=== PATIENT | female | born 2000 | race Caucasian/White ===

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

== ENCOUNTER 2022-10-17 23:14 | Emergency (ER) | payer OTHER ==
--- OUTSIDE RECORDS SUMMARY | 2022-10-17 23:39 | XMS REPORT | Continuity of Care Document ---
:2000 Author Organization [facility] t Address [address] [place] [address] Care Team Providers Name Role Phone Norma Pugh Primary Care Physician [phone] MARY GRACE Attending Clinician Unavailable Mickey_Vianney Attending Clinician Unavailable MARY GRACE Admitting Clinician Unavailable Mickey_Vianney Admitting Clinician Unavailable Problems This patient has no known problems. Allergies, Adverse Reactions, Alerts This patient has no known allergies or adverse reactions. Medications Ordered Filled Start Stop Current Ordering Indication Dosage Frequency Signature Comments Components Source Medication Medication Date Date Medication? Clinician (SIG) Name Name CEPHALEXIN 2021-0 No 500 CAP 500MG 8 00:00: 00 CEPHALEXIN 2021-0 No CAP 500MG 8 00:00: 00 &lt 2022-0 No 500 8- 00:00: 00 Dose 2-0 No Unknown 8- 00:00: 00 &lt 2022-0 No 500 8- 00:00: 00 Dose 2022-0 No Unknown 8 00:00: 00 &lt 2022-0 No 500 8- 00:00: 00 Dose 2-0 No Unknown 8 00:00: 00 &lt 2022-0 No 7 00:00: 00 &lt 2022-0 No 7 00:00: 00 &lt 2022-0 No 7 00:00: 00 &lt 2022-0 No 500 7 00:00: 00 &lt 2022-0 No 500 7 00:00: 00 &lt 2022-0 No 500 7 00:00: 00 Dose 2022-0 No Unknown 12-08 00:00: 00 Dose 2022-0 No Unknown 12-08 00:00: 00 Dose 2022-0 No Unknown 7- 00:00: 00 fluconazole 2022-0 No 1mg 150 mg 6-28 tablet 00:00: 00 &lt 2022-0 No 6-28 00:00: 00 &lt 2022-0 No 6-28 00:00: 00 &lt 2022-0 No 6-28 00:00: 00 fluconazole 2022-0 No 1mg 150 mg 6-28 tablet 00:00: 00 &lt 2022-0 No 6-28 00:00: 00 &lt 2022-0 No 6-28 00:00: 00 &lt 2022-0 No 6-28 00:00: 00 fluconazole 2022-0 No 1mg 150 mg 6-28 tablet 00:00: 00 &lt 2022-0 No 6-28 00:00: 00 &lt 2022-0 No 6-28 00:00: 00 &lt 2022-0 No 6-28 00:00: 00 &lt 2022-0 No 6-22 00:00: 00 &lt 2022-0 No 6-22 00:00: 00 &lt 2022-0 No 6-22 00:00: 00 Dovonex 2022-0 No 1% 0.005 % 6-20 topical 00:00: cream 00 metronidazo 2022-0 No 1mg le 500 mg 6-20 tablet 00:00: 00 ibuprofen 2022-0 No 1mg 400 mg 6-20 tablet 00:00: 00 &lt 2022-0 No 6-20 00:00: 00 &lt 2022-0 No 6-20 00:00: 00 &lt 2022-0 No 6-20 00:00: 00 Dovonex 2022-0 No 1% 0.005 % 6-20 topical 00:00: cream 00 metronidazo 2022-0 No 1mg le 500 mg 6-20 tablet 00:00: 00 ibuprofen 2022-0 No 1mg 400 mg 6-20 tablet 00:00: 00 &lt 2022-0 No 6-20 00:00: 00 &lt 2022-0 No 6-20 00:00: 00 &lt 2022-0 No 6-20 00:00: 00 Dovonex 2022-0 No 1% 0.005 % 6-20 topical 00:00: cream 00 metronidazo 2022-0 No 1mg le 500 mg 6-20 tablet 00:00: 00 ibuprofen 2022-0 No 1mg 400 mg 6-20 tablet 00:00: 00 &lt 2022-0 No 6-20 00:00: 00 &lt 2022-0 No 6-20 00:00: 00 &lt 2022-0 No 6-20 00:00: 00 &lt 2022-0 No 6-13 00:00: 00 &lt 2022-0 No 6-13 00:00: 00 &lt 2022-0 No 6-13 00:00: 00 mupirocin 2 2-0 No 1% % topical 4-26 ointment 00:00: 00 Dose 2022-0 No Unknown 4-26 00:00: 00 Dose 2022-0 No Unknown 4-26 00:00: 00 Dose 2022-0 No Unknown 4-26 00:00: 00 Dose 2022-0 No Unknown 4-26 00:00: 00 mupirocin 2 2-0 No 1% % topical 4-26 ointment 00:00: 00 Dose 2022-0 No Unknown 4-26 00:00: 00 Dose 2022-0 No Unknown 4-26 00:00: 00 Dose 2022-0 No Unknown 4-26 00:00: 00 Dose 2022-0 No Unknown 4-26 00:00: 00 mupirocin 2 2022-0 No 1% % topical 4-26 ointment 00:00: 00 Dose 2022-0 No Unknown 4-26 00:00: 00 Dose 2022-0 No Unknown 4-26 00:00: 00 Dose 2022-0 No Unknown 4-26 00:00: 00 Dose 2022-0 No Unknown 4-26 00:00: 00 Dose 2022-0 No Unknown 4-15 00:00: 00 Dose 2022-0 No Unknown 4-15 00:00: 00 Dose 2022-0 No Unknown 4-15 00:00: 00 mupirocin 2 2-0 No 1% % topical 4-06 ointment 00:00: 00 sulfamethox 2-0 No 1mg azole 800 4-06 mg-trimetho 00:00: prim 160 mg 00 tablet Dose 2-0 No Unknown 4-06 00:00: 00 Dose 2022-0 No Unknown 4-06 00:00: 00 mupirocin 2 2022-0 No 1% % topical 4-06 ointment 00:00: 00 sulfamethox 2022-0 No 1mg azole 800 4-06 mg-trimetho 00:00: prim 160 mg 00 tablet Dose 2022-0 No Unknown 4-06 00:00: 00 Dose 2022-0 No Unknown 4-06 00:00: 00 mupirocin 2 2022-0 No 1% % topical 4-06 ointment 00:00: 00 sulfamethox 2022-0 No 1mg azole 800 4-06 mg-trimetho 00:00: prim 160 mg 00 tablet Dose 2022-0 No Unknown 4-06 00:00: 00 Dose 2022-0 No Unknown 4-06 00:00: 00 metronidazo 2022-0 No 1mg le 500 mg 4-03 tablet 00:00: 00 metronidazo 2022-0 No 1mg le 500 mg 4-03 tablet 00:00: 00 metronidazo 2022-0 No 1mg le 500 mg 4-03 tablet 00:00: 00 doxycycline 2022-0 No 1mg hyclate 100 3-29 mg tablet 00:00: 00 doxycycline 2022-0 No 1mg hyclate 100 3-29 mg tablet 00:00: 00 doxycycline 2022-0 No 1mg hyclate 100 3-29 mg tablet 00:00: 00 Dose 2021-1 No Unknown 2-22 00:00: 00 Dose 1-1 No Unknown 2-22 00:00: 00 Dose 1-1 No Unknown 2-22 00:00: 00 doxycycline 2021-1 No 1mg hyclate 100 2-21 mg tablet 00:00: 00 doxycycline 2021-1 No 1mg hyclate 100 2-21 mg tablet 00:00: 00 doxycycline 2021-1 No 1mg hyclate 100 2-21 mg tablet 00:00: 00 Dose 1-1 No Unknown 0-07 00:00: 00 Dose 1-1 No Unknown 0-07 00:00: 00 Dose 2021-1 No Unknown 0-07 00:00: 00 azithromyci 2021-0 No 2mg n 500 mg 8-26 tablet 00:00: 00 azithromyci 2021-0 No 2mg n 500 mg 8-26 tablet 00:00: 00 azithromyci 2021-0 No 2mg n 500 mg 8-26 tablet 00:00: 00 Dose 2021-0 No Unknown 6-07 00:00: 00 Dose 2021-0 No Unknown 6-07 00:00: 00 Dose 2021-0 No Unknown 6-07 00:00: 00 Vitamin D3 1-0 No 1(1,000 25 mcg 6-05 unit) (1,000 00:00: unit) 00 capsule Vitamin D3 1-0 No 1(1,000 25 mcg 6-05 unit) (1,000 00:00: unit) 00 capsule Vitamin D3 1-0 No 1(1,000 25 mcg 6-05 unit) (1,000 00:00: unit) 00 capsule azithromyci 1-0 No 2mg n 500 mg 5-26 tablet 00:00: 00 azithromyci 1-0 No 2mg n 500 mg 5-26 tablet 00:00: 00 azithromyci 1-0 No 2mg n 500 mg 5-26 tablet 00:00: 00 Dose 2021-0 No Unknown 4-15 00:00: 00 Dose 2021-0 No Unknown 4-15 00:00: 00 Dose 2021-0 No Unknown 4-15 00:00: 00 Flagyl 500 1-0 No 1mg mg tablet 2-11 00:00: 00 Diflucan 2021-0 No 1mg 150 mg 2-11 tablet 00:00: 00 Flagyl 500 1-0 No 1mg mg tablet 2-11 00:00: 00 Diflucan 2021-0 No 1mg 150 mg 2-11 tablet 00:00: 00 Flagyl 500 2021-0 No 1mg mg tablet 2-11 00:00: 00 Diflucan 2021-0 No 1mg 150 mg 2-11 tablet 00:00: 00 metronidazo 2020-1 No 1mg le 500 mg 2-11 tablet 00:00: 00 metronidazo 2020-1 No 1mg le 500 mg 2-11 tablet 00:00: 00 metronidazo 2020-1 No 1mg le 500 mg 2-11 tablet 00:00: 00 clindamycin 2020-0 No 1% 1 % topical 02-05 gel 00:00: 00 clindamycin 2020-0 No 1% 1 % topical 9-23 gel 00:00: 00 clindamycin 2020-0 No 1% 1 % topical 9-23 gel 00:00: 00 clindamycin 2020-0 No 1% 1 % lotion 9-19 00:00: 00 clindamycin 2020-0 No 1% 1 % lotion 919 00:00: 00 clindamycin 2020-0 No 1% 1 % lotion 9-19 00:00: 00 mupirocin 2 2020-0 No 1% % topical 6-24 ointment 00:00: 00 prednisone 2020-0 No 1mg 20 mg 6-24 tablet 00:00: 00 doxycycline 2020-0 No 1mg monohydrate 6-24 100 mg 00:00: capsule 00 mupirocin 2 2020-0 No 1% % topical 6-24 ointment 00:00: 00 prednisone 2020-0 No 1mg 20 mg 6-24 tablet 00:00: 00 doxycycline 2020-0 No 1mg monohydrate 6-24 100 mg 00:00: capsule 00 mupirocin 2 2020-0 No 1% % topical 6-24 ointment 00:00: 00 prednisone 2020-0 No 1mg 20 mg 6-24 tablet 00:00: 00 doxycycline 2020-0 No 1mg monohydrate 6-24 100 mg 00:00: capsule 00 Dose 2020-0 No Unknown 6-18 00:00: 00 Dose 2020-0 No Unknown 6-18 00:00: 00 Dose 2020-0 No Unknown 6-18 00:00: 00 Xulane 150 2020-0 No 1mcg/24 mcg-35 1-06 hr mcg/24 hr 00:00: transdermal 00 patch Xulane 150 2020-0 No 1mcg/24 mcg-35 1-06 hr mcg/24 hr 00:00: transdermal 00 patch Xulane 150 2020-0 No 1mcg/24 mcg-35 1-06 hr mcg/24 hr 00:00: transdermal 00 patch Xulane 150 2019-1 No 1mcg/24 mcg-35 1-07 hr mcg/24 hr 00:00: transdermal 00 patch citalopram 2019-1 No 1mg 10 mg 1-07 tablet 00:00: 00 Xulane 150 2019-1 No 1mcg/24 mcg-35 1-07 hr mcg/24 hr 00:00: transdermal 00 patch citalopram 2019-1 No 1mg 10 mg 1-07 tablet 00:00: 00 Xulane 150 2019-1 No 1mcg/24 mcg-35 1-07 hr mcg/24 hr 00:00: transdermal 00 patch citalopram 2019-1 No 1mg 10 mg 1-07 tablet 00:00: 00 Diflucan 2019-0 No 1mg 150 mg 4-10 tablet 00:00: 00 Diflucan 2019-0 No 1mg 150 mg 4-10 tablet 00:00: 00 Diflucan 2019-0 No 1mg 150 mg 4-10 tablet 00:00: 00 amoxicillin 2019-0 No 1mg 875 mg 2-23 tablet 00:00: 00 amoxicillin 2019-0 No 1mg 875 mg 2-23 tablet 00:00: 00 amoxicillin 2019-0 No 1mg 875 mg 2-23 tablet 00:00: 00 permethrin 2017-0 No 1% 5 % topical 9-06 cream 00:00: 00 permethrin 2017-0 No 1% 5 % topical 9-06 cream 00:00: 00 permethrin 2017-0 No 1% 5 % topical 9-06 cream 00:00: 00 permethrin 2017-0 No 1% 5 % topical 5-17 cream 00:00: 00 permethrin 2017-0 No 1% 5 % topical 5-17 cream 00:00: 00 permethrin 2017-0 No 1% 5 % topical 5-17 cream 00:00: 00 Immunizations Ordered Immunization Filled Immunization Date Status Commen ts Source Name Name Influenza, seasonal, 2019-03-23 Completed inj 00:00:00 Influenza, seasonal, 2019-03-23 Completed inj 00:00:00 Influenza, seasonal, 2019-03-23 Completed inj 00:00:00 HPV, quadrivalent 2014-11-18 Completed 00:00:00 HPV, quadrivalent 2014-11-18 Completed 00:00:00 HPV, quadrivalent 2014-11-18 Completed 00:00:00 HPV, quadrivalent 2013-01-03 Completed 00:00:00 meningococcal MCV4P 2013-01-03 Completed 00:00:00 Tdap 2013-01-03 Completed 00:00:00 HPV, quadrivalent 2013-01-03 Completed 00:00:00 meningococcal MCV4P 2013-01-03 Completed 00:00:00 Tdap 2013-01-03 Completed 00:00:00 HPV, quadrivalent 2013-01-03 Completed 00:00:00 meningococcal MCV4P 2013-01-03 Completed 00:00:00 Tdap 2013-01-03 Completed 00:00:00 Hep A, ped/adol, 2 dose 2010-12-14 Completed 00:00:00 varicella 2010-12-14 Completed 00:00:00 Hep A, ped/adol, 2 dose 2010-12-14 Completed 00:00:00 varicella 2010-12-14 Completed 00:00:00 Hep A, ped/adol, 2 dose 2010-12-14 Completed 00:00:00 varicella 2010-12-14 Completed 00:00:00 Hep A, ped/adol, 2 dose 2006-09-22 Completed 00:00:00 Hep A, ped/adol, 2 dose 2006-09-22 Completed 00:00:00 Hep A, ped/adol, 2 dose 2006-09-22 Completed 00:00:00 Pneumococcal conjugate 2006-02-15 Completed P 00:00:00 varicella 2006-02-15 Completed 00:00:00 Pneumococcal conjugate 2006-02-15 Completed P 00:00:00 varicella 2006-02-15 Completed 00:00:00 Pneumococcal conjugate 2006-02-15 Completed P 00:00:00 varicella 2006-02-15 Completed 00:00:00 DTaP 2006-01-03 Completed 00:00:00 Hep A, ped/adol, 2 dose 2006-01-03 Completed 00:00:00 MMR 2006-01-03 Completed 00:00:00 IPV 2006-01-03 Completed 00:00:00 DTaP 2006-01-03 Completed 00:00:00 Hep A, ped/adol, 2 dose 2006-01-03 Completed 00:00:00 MMR 2006-01-03 Completed 00:00:00 IPV 2006-01-03 Completed 00:00:00 DTaP 2006-01-03 Completed 00:00:00 Hep A, ped/adol, 2 dose 2006-01-03 Completed 00:00:00 MMR 2006-01-03 Completed 00:00:00 IPV 2006-01-03 Completed 00:00:00 DTaP 2002-01-02 Completed 00:00:00 MMR 2002-01-02 Completed 00:00:00 Pneumococcal conjugate 2002-01-02 Completed P 00:00:00 IPV 2002-01-02 Completed 00:00:00 DTaP 2002-01-02 Completed 00:00:00 MMR 2002-01-02 Completed 00:00:00 Pneumococcal conjugate 2002-01-02 Completed P 00:00:00 IPV 2002-01-02 Completed 00:00:00 DTaP 2002-01-02 Completed 00:00:00 MMR 2002-01-02 Completed 00:00:00 Pneumococcal conjugate 2002-01-02 Completed P 00:00:00 IPV 2002-01-02 Completed 00:00:00 Pneumococcal conjugate 2001-08-02 Completed P 00:00:00 Pneumococcal conjugate 2001-08-02 Completed P 00:00:00 Pneumococcal conjugate 2001-08-02 Completed P 00:00:00 DTaP 2001-04-28 Completed 00:00:00 Hep B, adolescent or 2001-04-28 Completed ped 00:00:00 Hib (PRP-OMP) 2001-04-28 Completed 00:00:00 DTaP 2001-04-28 Completed 00:00:00 Hep B, adolescent or 2001-04-28 Completed ped 00:00:00 Hib (PRP-OMP) 2001-04-28 Completed 00:00:00 DTaP 2001-04-28 Completed 00:00:00 Hep B, adolescent or 2001-04-28 Completed ped 00:00:00 Hib (PRP-OMP) 2001-04-28 Completed 00:00:00 DTaP 2001-03-01 Completed 00:00:00 Hib (PRP-OMP) 2001-03-01 Completed 00:00:00 Pneumococcal conjugate 2001-03-01 Completed P 00:00:00 IPV 2001-03-01 Completed 00:00:00 DTaP 2001-03-01 Completed 00:00:00 Hib (PRP-OMP) 2001-03-01 Completed 00:00:00 Pneumococcal conjugate 2001-03-01 Completed P 00:00:00 IPV 2001-03-01 Completed 00:00:00 DTaP 2001-03-01 Completed 00:00:00 Hib (PRP-OMP) 2001-03-01 Completed 00:00:00 Pneumococcal conjugate 2001-03-01 Completed P 00:00:00 IPV 2001-03-01 Completed 00:00:00 DTaP 2000 Completed 00:00:00 Hib (PRP-OMP) 2000 Completed 00:00:00 Pneumococcal conjugate 2000 Completed P 00:00:00 IPV 2000 Completed 00:00:00 DTaP 2000 Completed 00:00:00 Hib (PRP-OMP) 2000 Completed 00:00:00 Pneumococcal conjugate 2000 Completed P 00:00:00 IPV 2000 Completed 00:00:00 DTaP 2000 Completed 00:00:00 Hib (PRP-OMP) 2000 Completed 00:00:00 Pneumococcal conjugate 2000 Completed P 00:00:00 IPV 2000 Completed 00:00:00 Hep B, adolescent or 2000 Completed ped 00:00:00 Hep B, adolescent or 2000 Completed ped 00:00:00 Hep B, adolescent or 2000 Completed ped 00:00:00 Hep B, adolescent or 2000 Completed ped 00:00:00 Hep B, adolescent or 2000 Completed ped 00:00:00 Hep B, adolescent or 2000 Completed ped 00:00:00 Vital Signs Vital Name Observation Time Observation Value Comments Source BP Systolic 2022-01-19 15:06:00 119 mm[Hg] BP Diastolic 2022-01-19 15:06:00 82 mm[Hg] Weight Measured 2022-01-19 15:06:00 142.60 pounds Height Measured 2022-01-19 15:06:00 62.00 inches Body Temperature 2022-01-19 15:06:00 98.40 degrees Heart Rate 2022-01-19 15:06:00 92.00 /min Respiratory Rate 2022-01-19 15:06:00 16.00 /min BP Systolic 2022-01-06 15:40:00 108 mm[Hg] BP Diastolic 2022-01-06 15:40:00 70 mm[Hg] Weight Measured 2022-01-06 15:40:00 140.60 pounds Height Measured 2022-01-06 15:40:00 62.00 inches Body Temperature 2022-01-06 15:40:00 98.10 degrees Heart Rate 2022-01-06 15:40:00 68.00 /min Respiratory Rate 2022-01-06 15:40:00 18.00 /min BP Systolic 2021-11-02 15:04:00 120 mm[Hg] BP Diastolic 2021-11-02 15:04:00 79 mm[Hg] Weight Measured 2021-11-02 15:04:00 145.80 pounds Height Measured 2021-11-02 15:04:00 62.00 inches Body Temperature 2021-11-02 15:04:00 98.20 degrees Heart Rate 2021-11-02 15:04:00 96.00 /min Respiratory Rate 2021-11-02 15:04:00 16.00 /min BP Systolic 2021-09-08 18:06:00 128 mm[Hg] BP Diastolic 2021-09-08 18:06:00 73 mm[Hg] Weight Measured 2021-09-08 18:06:00 146.40 pounds Height Measured 2021-09-08 18:06:00 62.00 inches Body Temperature 2021-09-08 18:06:00 98.40 degrees Heart Rate 2021-09-08 18:06:00 74.00 /min Respiratory Rate 2021-09-08 18:06:00 16.00 /min BP Systolic 2021-08-19 17:33:00 119 mm[Hg] BP Diastolic 2021-08-19 17:33:00 78 mm[Hg] Weight Measured 2021-08-19 17:33:00 144.00 pounds Height Measured 2021-08-19 17:33:00 62.00 inches Body Temperature 2021-08-19 17:33:00 98.30 degrees Heart Rate 2021-08-19 17:33:00 84.00 /min Respiratory Rate 2021-08-19 17:33:00 17.00 /min BP Systolic 2021-08-11 15:50:00 125 mm[Hg] BP Diastolic 2021-08-11 15:50:00 75 mm[Hg] Weight Measured 2021-08-11 15:50:00 141.60 pounds Height Measured 2021-08-11 15:50:00 62.00 inches Body Temperature 2021-08-11 15:50:00 98.10 degrees Heart Rate 2021-08-11 15:50:00 74.00 /min Respiratory Rate 2021-08-11 15:50:00 BP Systolic 2021-07-09 17:48:00 123 mm[Hg] BP Diastolic 2021-07-09 17:48:00 77 mm[Hg] Weight Measured 2021-07-09 17:48:00 142.20 pounds Height Measured 2021-07-09 17:48:00 62.00 inches Body Temperature 2021-07-09 17:48:00 98.20 degrees Heart Rate 2021-07-09 17:48:00 85.00 /min Respiratory Rate 2021-07-09 17:48:00 16.00 /min BP Systolic 2021-05-06 09:26:00 121 mm[Hg] BP Diastolic 2021-05-06 09:26:00 76 mm[Hg] Weight Measured 2021-05-06 09:26:00 136.80 pounds Height Measured 2021-05-06 09:26:00 62.00 inches Body Temperature 2021-05-06 09:26:00 98.60 degrees Heart Rate 2021-05-06 09:26:00 75.00 /min Respiratory Rate 2021-05-06 09:26:00 16.00 /min BP Systolic 2021-04-28 14:55:00 102 mm[Hg] BP Diastolic 2021-04-28 14:55:00 65 mm[Hg] Weight Measured 2021-04-28 14:55:00 139.00 pounds Height Measured 2021-04-28 14:55:00 62.00 inches Body Temperature 2021-04-28 14:55:00 98.80 degrees Heart Rate 2021-04-28 14:55:00 63.00 /min Respiratory Rate 2021-04-28 14:55:00 16.00 /min BP Systolic 2021-02-14 10:19:00 117 mm[Hg] BP Diastolic 2021-02-14 10:19:00 79 mm[Hg] Weight Measured 2021-02-14 10:19:00 136.40 pounds Height Measured 2021-02-14 10:19:00 62.00 inches Body Temperature 2021-02-14 10:19:00 98.40 degrees Heart Rate 2021-02-14 10:19:00 74.00 /min Respiratory Rate 2021-02-14 10:19:00 BP Systolic 2021-02-04 13:16:00 BP Diastolic 2021-02-04 13:16:00 Weight Measured 2021-02-04 13:16:00 135.00 pounds Height Measured 2021-02-04 13:16:00 Body Temperature 2021-02-04 13:16:00 Heart Rate 2021-02-04 13:16:00 Respiratory Rate 2021-02-04 13:16:00 Procedures This patient has no known procedures. Plan of Care Planned Activity Planned Date Details Comments Source Goal Plan of Care Note [code = 43008-7] Goal Plan of Care Note [code = 07642-6] Goal Plan of Care Note [code = 56843-5] Goal Plan of Care Note [code = 08709-7] Goal Plan of Care Note [code = 72607-3] Goal Plan of Care Note [code = 27289-2] Goal Plan of Care Note [code = 61288-5] Goal Plan of Care Note [code = 80295-5] Goal Plan of Care Note [code = 01676-6] Goal Plan of Care Note [code = 94043-2] Goal Plan of Care Note [code = 13721-9] Goal Plan of Care Note [code = 64908-4] Goal Plan of Care Note [code = 76978-9] Goal Plan of Care Note [code = 55343-7] Goal Plan of Care Note [code = 20948-6] Goal Plan of Care Note [code = 55202-9] Goal Plan of Care Note [code = 93915-3] Goal Plan of Care Note [code = 68909-6] Goal Plan of Care Note [code = 83158-9] Goal Plan of Care Note [code = 74664-1] Goal Plan of Care Note [code = 91136-8] Goal Plan of Care Note [code = 64865-3] Goal Plan of Care Note [code = 09348-1] Goal Plan of Care Note [code = 45367-7] Goal Plan of Care Note [code = 86202-2] Goal Plan of Care Note [code = 79117-7] Goal Plan of Care Note [code = 40120-8] Goal Plan of Care Note [code = 18953-8] Goal Plan of Care Note [code = 53321-5] Goal Plan of Care Note [code = 92009-3] Goal Plan of Care Note [code = 50282-6] Goal Plan of Care Note [code = 60384-8] Goal Plan of Care Note [code = 76509-5] Goal Plan of Care Note [code = 25811-2] Goal Plan of Care Note [code = 16209-6] Goal Plan of Care Note [code = 64966-9] Goal Plan of Care Note [code = 64916-6] Goal Plan of Care Note [code = 72535-2] Goal Plan of Care Note [code = 92986-7] Goal Plan of Care Note [code = 29076-6] Goal Plan of Care Note [code = 38052-3] Goal Plan of Care Note [code = 76179-9] Goal Plan of Care Note [code = 44920-0] Goal Plan of Care Note [code = 70857-1] Goal Plan of Care Note [code = 62022-0] Goal Plan of Care Note [code = 86127-8] Goal Plan of Care Note [code = 82098-7] Goal Plan of Care Note [code = 07438-1] Goal Plan of Care Note [code = 47903-2] Goal Plan of Care Note [code = 86678-8] Goal Plan of Care Note [code = 25662-8] Goal Plan of Care Note [code = 67989-3] Goal Plan of Care Note [code = 29555-4] Goal Plan of Care Note [code = 66890-5] Goal Plan of Care Note [code = 12691-8] Goal Plan of Care Note [code = 53087-2] Goal Plan of Care Note [code = 72731-3] Goal Plan of Care Note [code = 55575-0] Goal Plan of Care Note [code = 76237-4] Goal Plan of Care Note [code = 38960-9] Goal Plan of Care Note [code = 84932-7] Goal Plan of Care Note [code = 59337-6] Goal Plan of Care Note [code = 03521-5] Goal Plan of Care Note [code = 23591-3] Goal Plan of Care Note [code = 55231-1] Goal Plan of Care Note [code = 20050-8] Goal Plan of Care Note [code = 83080-8] Goal Plan of Care Note [code = 01801-4] Goal Plan of Care Note [code = 70620-1] Goal Plan of Care Note [code = 65269-5] Goal Plan of Care Note [code = 91546-2] Goal Plan of Care Note [code = 77419-5] Goal Plan of Care Note [code = 83347-8] Goal Plan of Care Note [code = 27093-0] Goal Plan of Care Note [code = 99173-3] Goal Plan of Care Note [code = 94088-6] Goal Plan of Care Note [code = 47346-4] Goal Plan of Care Note [code = 51379-7] Goal Plan of Care Note [code = 86925-3] Goal Plan of Care Note [code = 43280-5] Goal Plan of Care Note [code = 88057-7] Goal Plan of Care Note [code = 56059-4] Goal Plan of Care Note [code = 73669-9] Goal Plan of Care Note [code = 73750-3] Goal Plan of Care Note [code = 26280-3] Goal Plan of Care Note [code = 19099-4] Goal Plan of Care Note [code = 92275-1] Goal Plan of Care Note [code = 69870-7] Goal Plan of Care Note [code = 95923-2] Goal Plan of Care Note [code = 24741-3] Goal Plan of Care Note [code = 74105-2] Goal Plan of Care Note [code = 73216-0] Goal Plan of Care Note [code = 45948-4] Goal Plan of Care Note [code = 01789-6] Goal Plan of Care Note [code = 38040-1] Goal Plan of Care Note [code = 79281-1] Goal Plan of Care Note [code = 04096-6] Goal Plan of Care Note [code = 24945-5] Goal Plan of Care Note [code = 07427-2] Goal Plan of Care Note [code = 91723-3] Goal Plan of Care Note [code = 13125-2] Goal Plan of Care Note [code = 19129-0] Goal Plan of Care Note [code = 83022-3] Goal Plan of Care Note [code = 28805-9] Goal Plan of Care Note [code = 70507-4] Goal Plan of Care Note [code = 52475-2] Goal Plan of Care Note [code = 57432-1] Goal Plan of Care Note [code = 95974-4] Goal Plan of Care Note [code = 11576-0] Goal Plan of Care Note [code = 00880-3] Goal Plan of Care Note [code = 12314-7] Goal Plan of Care Note [code = 43834-6] Goal Plan of Care Note [code = 36058-7] Goal Plan of Care Note [code = 77422-9] Goal Plan of Care Note [code = 40516-9] Goal Plan of Care Note [code = 34995-6] Goal Plan of Care Note [code = 80856-7] Goal Plan of Care Note [code = 63691-3] Goal Plan of Care Note [code = 52197-1] Goal Plan of Care Note [code = 06519-2] Goal Plan of Care Note [code = 95604-3] Goal Plan of Care Note [code = 06560-0] Goal Plan of Care Note [code = 57483-8] Encounters Start End Encounter Admission Attending Care Care Encounter Source Date/Time Date/Time Type Type Clinicians Facility Department ID 2022-09-07 2022-09-07 Outpatient SFA SFA [id number] [place] 17:06:19 17:06:19 0425 F Sergo 2022-07-15 2022-07-15 Outpatient SFA SFA [id number] [place] 15:30:04 15:30:04 0302 F Sergo 2022-03-13 2022-03-13 Outpatient SFA SFA [id number] [place] 13:05:30 13:05:30 1029 F [place] 2022-02-17 2022-02-17 Outpatient SFA SFA [id number] [place] 17:07:00 17:07:00 1005 F Sergo 2022-02-16 2022-02-16 Outpatient [id number]-[id number] 00:00:00 00:00:00 Visit eda6-4f92 da6-4f92-8 -9c2j-d2p u2b-h6m2g4 [id number] 40b0d0 2022-01-19 2022-01-19 Outpatient [id number] 00:00:00 00:00:00 Visit 0dfa-493f dfa-493f-b -vl59-171 b23-360q40 [id number] 17b2e6 2022-01-06 2022-01-06 Outpatient [id number] 00:00:00 00:00:00 Visit 2019-4afd 020-4afd-9 -930e-71d 30e-71d1db [id number] 907e09 2021-12-14 2021-12-14 Outpatient LISTER_MELI MEHOP MEHOP [id number] [place] 00:00:00 00:00:00 SSA [id number] da [facility] 2019-09-13 2019-09-13 Outpatient Raju_P MMG MMG [id number] [place] 03:56:00 03:56:00 0430 [facility] Results Test Description Test Time Test Comments Results Result Comments Source VAGINAL PATHOGENS DNA PANEL 2022-09-08 15:53:03 Test Item Value Reference Range Interpretation Comme nts SUZE SPECIES (test code NEGATIVE NEGATIVE = ) G. VAGINALIS (test code = POSITIVE NEGATIVE A ) T. VAGINALIS (test code = NEGATIVE NEGATIVE N ote: The BD Affirm VPIII Microbial ) Identification Testis a DNA probe test intended for e in the detectionand identification of Suze species, Gardnerellavagi nalis and Trichomonas vaginalis nucle ic acid. [facility] has important patho logy staff changes effective 07/14. New pathology staff will provide uninterrupted, excellent patient care and clinical co nsultation. See URL: [email or web address]. UNLESS OTHERWISE INDIC ATED, [facility] [place] [id number] [id number] HOSPITALIST PROGRAM DIRECTOR: IRIS GALLARDO M.D. [place] NUMBER [id number] [place]. [id number] CREATININE, PERITONEAL [id number] 15:09:30 Test Item Value Reference Range Interpretation Comments CREATININE, TEST NOT Unable to perfo rm PERITONEAL FLUID PERFORMED testing due to a (test code = ) laborato ry error.Charges adjusted as applicable. SOURCE (test code = TEST NOT TESTING REFERRED ) PERFORMED BY [facility], [address] [place], [place] [address] CAP [place]. [id number] CLIA N O. [id number] TEST ING PERFORMED AT [employer] AT [facility] [address] R M [address] [facility], [address] CLIA NO: [id number] VAGINAL PATHOGENS DNA [id number] 13:20:18 Test Item Value Reference Range Interpretation Comments SUZE SPECIES NEGATIVE NEGATIVE (test code = ) G. VAGINALIS POSITIVE NEGATIVE A (test code = ) T. VAGINALIS NEGATIVE NEGATIVE Note: The BD A ffirm VPIII (test code = Microbial Ident ification ) Testis a DNA pr obe test intended for us e in the detectionand id entification of Suze spec ies, Gardnerellavagi nalis and Trichomonas vag inalis nucleic acid. * [facility] has important patho logy staff changes effecti ve 07/14/2022. New pathology staff will provide uninterrupted, excellent patient care an d clinical consultation. S ee URL: [email or web address]. UNLESS OTHE RWISE INDICATED, ALL TESTING PERFORMED AT [facility] [address] [place] [address] LABORATOR Y DIRECTOR: IRIS GALLARDO M.D. CLIA NUMBER [id number] CAP ACCREDITATION N O. [id number] CT/NG, NAAT, [id number] 11:12:41 Test Item Value Reference Range Interpretation Comments CHLAMYDIA, NAAT, NEGATIVE NEGATIVE Testing is performed with URINE (test code Allyssa MIGUEL ANGEL 6800/8800 = 59456) systems usingre al-time polymerase meghna n reaction (PCR) method. A negative result does not exclude low level infection , specimensamplin g error, or collection erro r. GONORRHEA, NAAT, NEGATIVE NEGATIVE Testing is performed with URINE (test code Allyssa MIGUEL ANGEL 6800/8800 = 51953) systems usingre al-time polymerase meghna n reaction (PCR) method. A negative result does not exclude low level infection , specimensamplin g error, or collection erro r. HIV 1/2 4TH GEN, RFLX [id number] 06:38:56 Test Item Value Reference Range Interpretation Comments HIV 1/2 4TH GEN, RFLX CONF (test NON-REACTIVE NON-REACTIVE code = 3514) HEPATITIS PANEL, [id number] 06:38:56 Test Item Value Reference Range Interpretation Comments HEPATITIS A IgM (test NON-REACTIVE NON-REACTIVE code = 94731) HEPATITIS B CORE IgM NON-REACTIVE NON-REACTIVE (test code = 4644) HEPATITIS B SURF AG NON-REACTIVE NON-REACTIVE (test code = 2739) HEPATITIS C ANTIBODY NON-REACTIVE NON-REACTIVE (test code = 4675) INTERPRETATION (NOTE) Hepatitis A HEPATITIS A: (test serology shows no code = 2552) evidence of acu te hepatitis A. INTERPRETATION (NOTE) Hepatitis B HEPATITIS B: (test serology shows no code = 17925) evidence of ac chelle hepatitis B and no indication of exposure to hepatitis B vir us in the previous si xto eight months. INTERPRETATION (NOTE) Hepatitis C HEPATITIS C: (test serology shows no code = 83275) evidence of ex posure to hepatitisC v irus at this time. I t can take up to 12 m onths after exposure tothe hepatitis C vir us for antibodies to become detectab le in the blood in ce rtain patients. C PL has important pathology staff changes effecti ve 07/14/2022. New pathology staff will provide uninterrupted, excellent patie nt care and clinic al consultation. S ee URL: [email or web address]. UNL ESS OTHERWISE INDIC ATED, ALL TESTING PERFORMED AT [facility] [place]. [address] [place] [address] [facility] KE[facility] DIRECTOR: JONNY FREY M.D. CLIA NUMBER [id number] [place] [id number] 05:32:53 Test Item Value Reference Range Interpretation Comments RPR RESULT (test code = NON-REACTIVE NON-REACTIVE 3501) RPR TITER (test code = 3500) NOT INDIC. TITER NOT INDIC. PAP TEST, THINPREP, [id number] 15:51:45 Test Item Value Reference Range Interpretation Comments SOURCE: (test Cervical code = 8001) SLIDES: (test 1 code = 8011) LMP: (test code 02/20/2022 = 8021) SPECIMEN (NOTE) Satisfactory f or ADEQUACY: (test evaluation. code = 44665) Endocervical cells/transform ation zone component not identified. INTERPRETATION: NILM/NO EPITH. (test code = ABNORMALITY;SEE 43700) BELOW -------- - NEGATIVE FOR INTRAEPITHELIAL LESION OR MALIGNANCY ( NILM) -------- -------- -------- ---- PASSENGER LOCOMOTIVE ENGINEER Lety : (test code = RADHA Singleton(ASCP)IA 8101) C LOCATION: (test (NOTE) Specimens pr ocessed and code = 03589) interpreted at [facility] [place] [address], Phone: , CLIA: [id number] CPT: (test code (NOTE) 79776 UNLESS OTHERWISE = 8140) INDICATED, COMP UTER AIDED AND CYTOTECHNOLOGIS T SCREENING PERFO RMED. The Pap test is a screening test with an inherent, but l ow probability of error. Your patient sh ould be reminded to con sult you immediately if she experiences any suspicious sign s or symptoms, regar dless of her Pap test re sult. An alternate repor t format containing imag es or consolidated pr ior Pap history is avai lable as applicable. UNL ESS OTHERWISE INDIC ATED, ALL TESTING PER FORMED ATCLINICAL PATH [facility] [place]. [address] [place] [address] LABORATOR Y DIRECTOR: JONNY FREY M.D. CLIA NUMBER [id number] CAP ACCREDITATION N O. [id number] CT/NG, NAAT, [id number] 18:14:26 Test Item Value Reference Range Interpretation Comments GONORRHEA, NAAT POSITIVE NEGATIVE A IMPORTA NT NOTICE: SEE (test code = [place] [address]) [email or web address] Note: Assay methodology is nucleic acid amplification 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 CHLAMYDIA, NAAT NEGATIVE NEGATIVE IMPORTA NT NOTICE: SEE (test code = [place] [address]) [email or web address] Note: Assay methodology is nucleic acid amplification 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 TRICHOMONAS, NAAT, [id number] 15:11:22 Test Item Value Reference Range Interpretation Comments TRICHOMONAS, NAAT NEGATIVE NEGATIVE IMPOR TANT NOTICE: SEE (test code = [place] [address]) [email or web address] Note: Assay methodology is nucleic acid amplification b y tube machine operator helper m ediated amplification ( TMA) and Hybridization P rotection Assay (HPA) uti lizing the [employer] platform. A negative result does not exclude low lev el infection, specimensamplin g error, or collection erro r. UNLESS OTHERWISE INDIC ATED, ALL TESTING PERFORM ED [facility]. [address] [place] [address] LABORATOR Y DIRECTOR: JONNY SHRESTHA M.D. CLIA NUMBER [id number] CAP ACCREDITATION N O. [id number] 03:09:46 Test Item Value Reference Range Interpretation Comments RPR RESULT (test code = NON-REACTIVE NON-REACTIVE 3501) RPR TITER (test code = 3500) NOT INDIC. TITER NOT INDIC. HIV 1/2 4TH GEN, RFLX [id number] 02:57:16 Test Item Value Reference Range Interpretation Comments HIV 1/2 4TH GEN, RFLX CONF (test NON-REACTIVE NON-REACTIVE code = 3514) HEPATITIS PANEL, [id number] 02:57:16 Test Item Value Reference Range Interpretation Comments HEPATITIS A IgM (test NON-REACTIVE NON-REACTIVE code = 66327) HEPATITIS B CORE IgM NON-REACTIVE NON-REACTIVE (test code = 4644) HEPATITIS B SURF AG NON-REACTIVE NON-REACTIVE (test code = 2739) HEPATITIS C ANTIBODY NON-REACTIVE NON-REACTIVE (test code = 4675) INTERPRETATION (NOTE) Hepatitis A HEPATITIS A: (test code sero logy shows no = 2552) evidence of acu te hepatitis A. INTERPRETATION (NOTE) Hepatitis B HEPATITIS B: (test code sero logy shows no = 60824) evidence of acu te hepatitis B and no indication of exposure to hepatitis B vir us in the previous karla eight months. INTERPRETATION (NOTE) Hepatitis C HEPATITIS C: (test code sero logy shows no = 85382) evidence of exposure to hepatitisC viru s at this time. I t can take up to 12 months after exposure tothe hepatitis C vir us for antibodies to become detectab le in the blood in certain patient s. [id number] 00:00:00 Test Item Value Reference Range Interpretation Comments RPR RESULT (test code = NON-REACTIVE 3501) RPR TITER (test code = 3500) NOT INDIC. TITER [id number] 00:00:00 Test Item Value Reference Range Interpretation Comments RPR RESULT (test code = NON-REACTIVE 3501) RPR TITER (test code = 3500) NOT INDIC. TITER [id number] 00:00:00 Test Item Value Reference Range Interpretation Comments RPR RESULT (test code = NON-REACTIVE 3501) RPR TITER (test code = 3500) NOT INDIC. TITER HIV AB/AG COMBO RFLX [id number] 00:00:00 Test Item Value Reference Range Interpretation Comments HIV 1/2 4TH GEN, RFLX CONF (test NON-REACTIVE code = 3514) HIV AB/AG COMBO RFLX [id number] 00:00:00 Test Item Value Reference Range Interpretation Comments HIV 1/2 4TH GEN, RFLX CONF (test NON-REACTIVE code = 3514) ACUTE HEPATITIS [id number] 00:00:00 Test Item Value Reference Range Interpretation Comments HEPATITIS A IgM (test code = NON-REACTIVE 51911) HEPATITIS B CORE IgM (test code NON-REACTIVE = 4644) HEPATITIS B SURF AG (test code = NON-REACTIVE 2739) HEPATITIS C ANTIBODY (test code NON-REACTIVE = 4675) INTERPRETATION HEPATITIS A: (NOTE) (test code = 2552) INTERPRETATION HEPATITIS B: (NOTE) (test code = 86231) INTERPRETATION HEPATITIS C: (NOTE) (test code = 86782) ACUTE HEPATITIS [id number] 00:00:00 Test Item Value Reference Range Interpretation Comments HEPATITIS A IgM (test code = NON-REACTIVE 74407) HEPATITIS B CORE IgM (test code NON-REACTIVE = 4644) HEPATITIS B SURF AG (test code = NON-REACTIVE 2739) HEPATITIS C ANTIBODY (test code NON-REACTIVE = 4675) INTERPRETATION HEPATITIS A: (NOTE) (test code = 2552) INTERPRETATION HEPATITIS B: (NOTE) (test code = 34807) INTERPRETATION HEPATITIS C: (NOTE) (test code = 26622) CT/NG, TMA, [id number] 00:00:00 Test Item Value Reference Range Interpretation Comments GONORRHEA, NAAT (test code = 12258) POSITIVE CHLAMYDIA, NAAT (test code = 30546) NEGATIVE CT/NG, TMA, [id number] 00:00:00 Test Item Value Reference Range Interpretation Comments GONORRHEA, NAAT (test code = 16696) POSITIVE CHLAMYDIA, NAAT (test code = 99895) NEGATIVE TRICHOMONAS, URINE, [id number] 00:00:00 Test Item Value Reference Range Interpretation Comments TRICHOMONAS, NAAT (test code = NEGATIVE 09132) TRICHOMONAS, URINE, [id number] 00:00:00 Test Item Value Reference Range Interpretation Comments TRICHOMONAS, NAAT (test code = NEGATIVE 63901) [id number] 00:00:00 Test Item Value Reference Range Interpretation Comments RPR RESULT (test code = NON-REACTIVE 3501) RPR TITER (test code = 3500) NOT INDIC. TITER [id number] 00:00:00 Test Item Value Reference Range Interpretation Comments RPR RESULT (test code = NON-REACTIVE 3501) RPR TITER (test code = 3500) NOT INDIC. TITER [id number] 00:00:00 Test Item Value Reference Range Interpretation Comments RPR RESULT (test code = NON-REACTIVE 3501) RPR TITER (test code = 3500) NOT INDIC. TITER HIV AB/AG COMBO RFLX [id number] 00:00:00 Test Item Value Reference Range Interpretation Comments HIV 1/2 4TH GEN, RFLX CONF (test NON-REACTIVE code = 3514) HIV AB/AG COMBO RFLX [id number] 00:00:00 Test Item Value Reference Range Interpretation Comments HIV 1/2 4TH GEN, RFLX CONF (test NON-REACTIVE code = 3514) ACUTE HEPATITIS [id number] 00:00:00 Test Item Value Reference Range Interpretation Comments HEPATITIS A IgM (test code = NON-REACTIVE 21401) HEPATITIS B CORE IgM (test code NON-REACTIVE = 4644) HEPATITIS B SURF AG (test code = NON-REACTIVE 2739) HEPATITIS C ANTIBODY (test code NON-REACTIVE = 4675) INTERPRETATION HEPATITIS A: (NOTE) (test code = 2552) INTERPRETATION HEPATITIS B: (NOTE) (test code = 88542) INTERPRETATION HEPATITIS C: (NOTE) (test code = 10109) ACUTE HEPATITIS [id number] 00:00:00 Test Item Value Reference Range Interpretation Comments HEPATITIS A IgM (test code = NON-REACTIVE 55001) HEPATITIS B CORE IgM (test code NON-REACTIVE = 4644) HEPATITIS B SURF AG (test code = NON-REACTIVE 2739) HEPATITIS C ANTIBODY (test code NON-REACTIVE = 4675) INTERPRETATION HEPATITIS A: (NOTE) (test code = 2552) INTERPRETATION HEPATITIS B: (NOTE) (test code = 41665) INTERPRETATION HEPATITIS C: (NOTE) (test code = 44857) CT/NG, TMA, [id number] 00:00:00 Test Item Value Reference Range Interpretation Comments GONORRHEA, NAAT (test code = 86156) POSITIVE CHLAMYDIA, NAAT (test code = 94201) NEGATIVE CT/NG, TMA, [id number] 00:00:00 Test Item Value Reference Range Interpretation Comments GONORRHEA, NAAT (test code = 43694) POSITIVE CHLAMYDIA, NAAT (test code = 73212) NEGATIVE TRICHOMONAS, URINE, [id number] 00:00:00 Test Item Value Reference Range Interpretation Comments TRICHOMONAS, NAAT (test code = NEGATIVE 65850) TRICHOMONAS, URINE, [id number] 00:00:00 Test Item Value Reference Range Interpretation Comments TRICHOMONAS, NAAT (test code = NEGATIVE 15698) VAGINAL PATHOGENS DNA [id number] 10:04:37 Test Item Value Reference Range Interpretation Comments SUZE SPECIES (test code = 20333) POSITIVE NEGATIVE A G. VAGINALIS (test code = 26178) NEGATIVE NEGATIVE T. VAGINALIS (test code = 33486) NEGATIVE NEGATIVE VAGINAL PATHOGENS DNA [id number] 00:00:00 Test Item Value Reference Range Interpretation Comments SUZE SPECIES (test code = 73388) POSITIVE G. VAGINALIS (test code = 79051) NEGATIVE T. VAGINALIS (test code = 87597) NEGATIVE VAGINAL PATHOGENS DNA [id number] 00:00:00 Test Item Value Reference Range Interpretation Comments SUZE SPECIES (test code = 91643) POSITIVE G. VAGINALIS (test code = 06137) NEGATIVE T. VAGINALIS (test code = 67962) NEGATIVE VAGINAL PATHOGENS DNA [id number] 00:00:00 Test Item Value Reference Range Interpretation Comments SUZE SPECIES (test code = 71509) POSITIVE G. VAGINALIS (test code = 17618) NEGATIVE T. VAGINALIS (test code = 39767) NEGATIVE VAGINAL PATHOGENS DNA [id number] 00:00:00 Test Item Value Reference Range Interpretation Comments SUZE SPECIES (test code = 15290) POSITIVE G. VAGINALIS (test code = 30383) NEGATIVE T. VAGINALIS (test code = 58218) NEGATIVE VAGINAL PATHOGENS DNA [id number] 00:00:00 Test Item Value Reference Range Interpretation Comments SUZE SPECIES (test code = 93071) POSITIVE G. VAGINALIS (test code = 28782) NEGATIVE T. VAGINALIS (test code = 34868) NEGATIVE VAGINAL PATHOGENS DNA [id number] 00:00:00 Test Item Value Reference Range Interpretation Comments SUZE SPECIES (test code = 58340) POSITIVE G. VAGINALIS (test code = 53625) NEGATIVE T. VAGINALIS (test code = 65709) NEGATIVE CHLAMYDIA, NAAT, [id number] 08:21:43 Test Item Value Reference Range Interpretation Comments CHLAMYDIA, NAAT NEGATIVE NEGATIVE IMPORTA NT NOTICE: SEE (test code = [place] [address]) [email or web address] Note: Assay methodology is nucleic acid amplification 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 GONORRHEA, NAAT, [id number] 08:21:43 Test Item Value Reference Range Interpretation Comments GONORRHEA, NAAT NEGATIVE NEGATIVE IMPORTA NT NOTICE: SEE (test code = [place] [address]) [email or web address] Note: Assay methodology is nucleic acid amplification 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 CHLAMYDIA, AMPLIFIED, [id number] 00:00:00 Test Item Value Reference Range Interpretation Comments CHLAMYDIA, NAAT (test code = 76593) NEGATIVE CHLAMYDIA, AMPLIFIED, [id number] 00:00:00 Test Item Value Reference Range Interpretation Comments CHLAMYDIA, NAAT (test code = 73013) NEGATIVE GC, AMPLIFIED, [id number] 00:00:00 Test Item Value Reference Range Interpretation Comments GONORRHEA, NAAT (test code = 34612) NEGATIVE GC, AMPLIFIED, [id number] 00:00:00 Test Item Value Reference Range Interpretation Comments GONORRHEA, NAAT (test code = 83132) NEGATIVE CHLAMYDIA, AMPLIFIED, [id number] 00:00:00 Test Item Value Reference Range Interpretation Comments CHLAMYDIA, NAAT (test code = 30289) NEGATIVE CHLAMYDIA, AMPLIFIED, [id number] 00:00:00 Test Item Value Reference Range Interpretation Comments CHLAMYDIA, NAAT (test code = 06702) NEGATIVE GC, AMPLIFIED, [id number] 00:00:00 Test Item Value Reference Range Interpretation Comments GONORRHEA, NAAT (test code = 04651) NEGATIVE GC, AMPLIFIED, [id number] 00:00:00 Test Item Value Reference Range Interpretation Comments GONORRHEA, NAAT (test code = 83198) NEGATIVE CHLAMYDIA, AMPLIFIED, [id number] 00:00:00 Test Item Value Reference Range Interpretation Comments CHLAMYDIA, NAAT (test code = 33022) NEGATIVE CHLAMYDIA, AMPLIFIED, [id number] 00:00:00 Test Item Value Reference Range Interpretation Comments CHLAMYDIA, NAAT (test code = 48186) NEGATIVE GC, AMPLIFIED, [id number] 00:00:00 Test Item Value Reference Range Interpretation Comments GONORRHEA, NAAT (test code = 70971) NEGATIVE GC, AMPLIFIED, [id number] 00:00:00 Test Item Value Reference Range Interpretation Comments GONORRHEA, NAAT (test code = 65609) NEGATIVE HEMOGLOBIN [id number] 06:10:22 Test Item Value Reference Range Interpretation Comments HEMOGLOBIN A1c (test code = 89789) 5.2 % 4.2-5.6 CBC W/AUTO DIFF WITH [id number] 05:31:54 Test Item Value Reference Range Interpretation Comments WBC (test code = 8.3 K/UL 3.5-11.0 1001) RBC (test code = 4.48 M/UL 3.80-5.40 1002) HEMOGLOBIN (test code 14.1 G/DL 11.5-15.5 = 1003) HEMATOCRIT (test code 40.2 % 34.0-45.0 = 1004) MCV (test code = 89.7 fL 80.0-99.0 1005) MCH (test code = 31.5 PG 25.0-33.0 1006) MCHC (test code = 35.1 G/DL 31.0-36.0 1007) RDW (test code = 11.7 % 11.5-15.0 1038) NEUTROPHILS (test 71.0 % code = 1008) LYMPHOCYTES (test 20.5 % code = 1010) MONOCYTES (test code 6.5 % = 1011) EOSINOPHILS (test 0.8 % code = 1012) BASOPHILS (test code 0.8 % = 1013) IMMATURE GRANULOCYTES 0.4 % (test code = 1036) NUCLEATED RBCS (test 0.0 /100 WBC'S See_Comment [Aut omated code = 1065) message] The sy stem which generated this result transmitted reference range : 0.0. The refere nce range was not u sed to interpret th is result as normal/abnormal . PLATELET COUNT (test 379 K/UL 130-400 code = 1015) ABSOLUTE NEUTROPHILS 5.85 K/UL 1.50-7.50 (test code = 1066) ABSOLUTE LYMPHOCYTES 1.69 K/UL 1.00-4.00 (test code = 1067) ABSOLUTE MONOCYTES 0.54 K/UL 0.20-1.00 (test code = 1068) ABSOLUTE EOSINOPHILS 0.07 K/UL 0.00-0.50 (test code = 1040) ABSOLUTE BASOPHILS 0.07 K/UL 0.00-0.20 (test code = 1069) ABS IMMATURE 0.03 K/UL 0.00-0.10 GRANULOCYTES (test code = 1020) ABS NUCLEATED RBCS 0.00 K/UL 0.00-0.11 (test code = 79568) HIV 1/2 4TH GEN, RFLX [id number] 04:04:35 Test Item Value Reference Range Interpretation Comments HIV 1/2 4TH GEN, RFLX CONF (test NON-REACTIVE NON-REACTIVE code = 3514) HEPATITIS PANEL, [id number] 04:04:35 Test Item Value Reference Range Interpretation Comments HEPATITIS A IgM (test NON-REACTIVE NON-REACTIVE code = 95102) HEPATITIS B CORE IgM NON-REACTIVE NON-REACTIVE (test code = 4644) HEPATITIS B SURF AG NON-REACTIVE NON-REACTIVE (test code = 2739) HEPATITIS C ANTIBODY NON-REACTIVE NON-REACTIVE (test code = 4675) INTERPRETATION (NOTE) Hepatitis A HEPATITIS A: (test code sero logy shows no = 2552) evidence of acu te hepatitis A. INTERPRETATION (NOTE) Hepatitis B HEPATITIS B: (test code sero logy shows no = 00728) evidence of acu te hepatitis B and no indication of exposure to hepatitis B vir us in the previous karla eight months. INTERPRETATION (NOTE) Hepatitis C HEPATITIS C: (test code sero logy shows no = 55673) evidence of exposure to hepatitisC viru s at this time. I t can take up to 12 months after exposure tothe hepatitis C vir us for antibodies to become detectab le in the blood in certain patient s. [id number] 02:50:30 Test Item Value Reference Range Interpretation Comments RPR RESULT (test NON-REACTIVE NON-REACTIVE code = 3501) RPR TITER (test NOT INDIC. NOT INDIC. UNLESS OTHE RWISE code = 3500) TITER INDICATED, ALL TESTING PERFORMED [facility] [address] [place] [address]004 4 LABORATORY DIRE CTOR: JONNY SHRESTHA M.D. CLIA NUMBER [id number] [place] [id number] CBC W/AUTO [id number] 00:00:00 Test Item Value Reference Range Interpretation Comments WBC (test code = 1001) 8.3 K/UL RBC (test code = 1002) 4.48 M/UL HEMOGLOBIN (test code = 1003) 14.1 G/DL HEMATOCRIT (test code = 1004) 40.2 % MCV (test code = 1005) 89.7 fL MCH (test code = 1006) 31.5 PG MCHC (test code = 1007) 35.1 G/DL RDW (test code = 1038) 11.7 % NEUTROPHILS (test code = 1008) 71.0 % LYMPHOCYTES (test code = 1010) 20.5 % MONOCYTES (test code = 1011) 6.5 % EOSINOPHILS (test code = 1012) 0.8 % BASOPHILS (test code = 1013) 0.8 % IMMATURE GRANULOCYTES (test 0.4 % code = 1036) NUCLEATED RBCS (test code = 0.0 /100WBC'S 1065) PLATELET COUNT (test code = 379 K/UL 1015) ABSOLUTE NEUTROPHILS (test code 5.85 K/UL = 1066) ABSOLUTE LYMPHOCYTES (test code 1.69 K/UL = 1067) ABSOLUTE MONOCYTES (test code = 0.54 K/UL 1068) ABSOLUTE EOSINOPHILS (test code 0.07 K/UL = 1040) ABSOLUTE BASOPHILS (test code = 0.07 K/UL 1069) ABS IMMATURE GRANULOCYTES (test 0.03 K/UL code = 1020) ABS NUCLEATED RBCS (test code = 0.00 K/UL 82844) CBC W/AUTO [id number] 00:00:00 Test Item Value Reference Range Interpretation Comments WBC (test code = 1001) 8.3 K/UL RBC (test code = 1002) 4.48 M/UL HEMOGLOBIN (test code = 1003) 14.1 G/DL HEMATOCRIT (test code = 1004) 40.2 % MCV (test code = 1005) 89.7 fL MCH (test code = 1006) 31.5 PG MCHC (test code = 1007) 35.1 G/DL RDW (test code = 1038) 11.7 % NEUTROPHILS (test code = 1008) 71.0 % LYMPHOCYTES (test code = 1010) 20.5 % MONOCYTES (test code = 1011) 6.5 % EOSINOPHILS (test code = 1012) 0.8 % BASOPHILS (test code = 1013) 0.8 % IMMATURE GRANULOCYTES (test 0.4 % code = 1036) NUCLEATED RBCS (test code = 0.0 /100WBC'S 1065) PLATELET COUNT (test code = 379 K/UL 1015) ABSOLUTE NEUTROPHILS (test code 5.85 K/UL = 1066) ABSOLUTE LYMPHOCYTES (test code 1.69 K/UL = 1067) ABSOLUTE MONOCYTES (test code = 0.54 K/UL 1068) ABSOLUTE EOSINOPHILS (test code 0.07 K/UL = 1040) ABSOLUTE BASOPHILS (test code = 0.07 K/UL 1069) ABS IMMATURE GRANULOCYTES (test 0.03 K/UL code = 1020) ABS NUCLEATED RBCS (test code = 0.00 K/UL 19436) CBC W/AUTO [id number] 00:00:00 Test Item Value Reference Range Interpretation Comments WBC (test code = 1001) 8.3 K/UL RBC (test code = 1002) 4.48 M/UL HEMOGLOBIN (test code = 1003) 14.1 G/DL HEMATOCRIT (test code = 1004) 40.2 % MCV (test code = 1005) 89.7 fL MCH (test code = 1006) 31.5 PG MCHC (test code = 1007) 35.1 G/DL RDW (test code = 1038) 11.7 % NEUTROPHILS (test code = 1008) 71.0 % LYMPHOCYTES (test code = 1010) 20.5 % MONOCYTES (test code = 1011) 6.5 % EOSINOPHILS (test code = 1012) 0.8 % BASOPHILS (test code = 1013) 0.8 % IMMATURE GRANULOCYTES (test 0.4 % code = 1036) NUCLEATED RBCS (test code = 0.0 /100WBC'S 1065) PLATELET COUNT (test code = 379 K/UL 1015) ABSOLUTE NEUTROPHILS (test code 5.85 K/UL = 1066) ABSOLUTE LYMPHOCYTES (test code 1.69 K/UL = 1067) ABSOLUTE MONOCYTES (test code = 0.54 K/UL 1068) ABSOLUTE EOSINOPHILS (test code 0.07 K/UL = 1040) ABSOLUTE BASOPHILS (test code = 0.07 K/UL 1069) ABS IMMATURE GRANULOCYTES (test 0.03 K/UL code = 1020) ABS NUCLEATED RBCS (test code = 0.00 K/UL 65496) HEMOGLOBIN [id number] 00:00:00 Test Item Value Reference Range Interpretation Comments HEMOGLOBIN A1c (test code = 97097) 5.2 % HEMOGLOBIN [id number] 00:00:00 Test Item Value Reference Range Interpretation Comments HEMOGLOBIN A1c (test code = 30879) 5.2 % HEMOGLOBIN [id number] 00:00:00 Test Item Value Reference Range Interpretation Comments HEMOGLOBIN A1c (test code = 55690) 5.2 % HIV AB/AG COMBO RFLX [id number] 00:00:00 Test Item Value Reference Range Interpretation Comments HIV 1/2 4TH GEN, RFLX CONF (test NON-REACTIVE code = 3514) HIV AB/AG COMBO RFLX [id number] 00:00:00 Test Item Value Reference Range Interpretation Comments HIV 1/2 4TH GEN, RFLX CONF (test NON-REACTIVE code = 3514) ACUTE HEPATITIS [id number] 00:00:00 Test Item Value Reference Range Interpretation Comments HEPATITIS A IgM (test code = NON-REACTIVE 28015) HEPATITIS B CORE IgM (test code NON-REACTIVE = 4644) HEPATITIS B SURF AG (test code = NON-REACTIVE 2739) HEPATITIS C ANTIBODY (test code NON-REACTIVE = 4675) INTERPRETATION HEPATITIS A: (NOTE) (test code = 2552) INTERPRETATION HEPATITIS B: (NOTE) (test code = 77867) INTERPRETATION HEPATITIS C: (NOTE) (test code = 93542) ACUTE HEPATITIS [id number] 00:00:00 Test Item Value Reference Range Interpretation Comments HEPATITIS A IgM (test code = NON-REACTIVE 22344) HEPATITIS B CORE IgM (test code NON-REACTIVE = 4644) HEPATITIS B SURF AG (test code = NON-REACTIVE 2739) HEPATITIS C ANTIBODY (test code NON-REACTIVE = 4675) INTERPRETATION HEPATITIS A: (NOTE) (test code = 2552) INTERPRETATION HEPATITIS B: (NOTE) (test code = 00128) INTERPRETATION HEPATITIS C: (NOTE) (test code = 97442) [id number] 00:00:00 Test Item Value Reference Range Interpretation Comments RPR RESULT (test code = NON-REACTIVE 3501) RPR TITER (test code = 3500) NOT INDIC. TITER [id number] 00:00:00 Test Item Value Reference Range Interpretation Comments RPR RESULT (test code = NON-REACTIVE 3501) RPR TITER (test code = 3500) NOT INDIC. TITER [id number] 00:00:00 Test Item Value Reference Range Interpretation Comments RPR RESULT (test code = NON-REACTIVE 3501) RPR TITER (test code = 3500) NOT INDIC. TITER CBC W/AUTO [id number] 00:00:00 Test Item Value Reference Range Interpretation Comments WBC (test code = 1001) 8.3 K/UL RBC (test code = 1002) 4.48 M/UL HEMOGLOBIN (test code = 1003) 14.1 G/DL HEMATOCRIT (test code = 1004) 40.2 % MCV (test code = 1005) 89.7 fL MCH (test code = 1006) 31.5 PG MCHC (test code = 1007) 35.1 G/DL RDW (test code = 1038) 11.7 % NEUTROPHILS (test code = 1008) 71.0 % LYMPHOCYTES (test code = 1010) 20.5 % MONOCYTES (test code = 1011) 6.5 % EOSINOPHILS (test code = 1012) 0.8 % BASOPHILS (test code = 1013) 0.8 % IMMATURE GRANULOCYTES (test 0.4 % code = 1036) NUCLEATED RBCS (test code = 0.0 /100WBC'S 1065) PLATELET COUNT (test code = 379 K/UL 1015) ABSOLUTE NEUTROPHILS (test code 5.85 K/UL = 1066) ABSOLUTE LYMPHOCYTES (test code 1.69 K/UL = 1067) ABSOLUTE MONOCYTES (test code = 0.54 K/UL 1068) ABSOLUTE EOSINOPHILS (test code 0.07 K/UL = 1040) ABSOLUTE BASOPHILS (test code = 0.07 K/UL 1069) ABS IMMATURE GRANULOCYTES (test 0.03 K/UL code = 1020) ABS NUCLEATED RBCS (test code = 0.00 K/UL 86796) CBC W/AUTO [id number] 00:00:00 Test Item Value Reference Range Interpretation Comments WBC (test code = 1001) 8.3 K/UL RBC (test code = 1002) 4.48 M/UL HEMOGLOBIN (test code = 1003) 14.1 G/DL HEMATOCRIT (test code = 1004) 40.2 % MCV (test code = 1005) 89.7 fL MCH (test code = 1006) 31.5 PG MCHC (test code = 1007) 35.1 G/DL RDW (test code = 1038) 11.7 % NEUTROPHILS (test code = 1008) 71.0 % LYMPHOCYTES (test code = 1010) 20.5 % MONOCYTES (test code = 1011) 6.5 % EOSINOPHILS (test code = 1012) 0.8 % BASOPHILS (test code = 1013) 0.8 % IMMATURE GRANULOCYTES (test 0.4 % code = 1036) NUCLEATED RBCS (test code = 0.0 /100WBC'S 1065) PLATELET COUNT (test code = 379 K/UL 1015) ABSOLUTE NEUTROPHILS (test code 5.85 K/UL = 1066) ABSOLUTE LYMPHOCYTES (test code 1.69 K/UL = 1067) ABSOLUTE MONOCYTES (test code = 0.54 K/UL 1068) ABSOLUTE EOSINOPHILS (test code 0.07 K/UL = 1040) ABSOLUTE BASOPHILS (test code = 0.07 K/UL 1069) ABS IMMATURE GRANULOCYTES (test 0.03 K/UL code = 1020) ABS NUCLEATED RBCS (test code = 0.00 K/UL 24474) CBC W/AUTO [id number] 00:00:00 Test Item Value Reference Range Interpretation Comments WBC (test code = 1001) 8.3 K/UL RBC (test code = 1002) 4.48 M/UL HEMOGLOBIN (test code = 1003) 14.1 G/DL HEMATOCRIT (test code = 1004) 40.2 % MCV (test code = 1005) 89.7 fL MCH (test code = 1006) 31.5 PG MCHC (test code = 1007) 35.1 G/DL RDW (test code = 1038) 11.7 % NEUTROPHILS (test code = 1008) 71.0 % LYMPHOCYTES (test code = 1010) 20.5 % MONOCYTES (test code = 1011) 6.5 % EOSINOPHILS (test code = 1012) 0.8 % BASOPHILS (test code = 1013) 0.8 % IMMATURE GRANULOCYTES (test 0.4 % code = 1036) NUCLEATED RBCS (test code = 0.0 /100WBC'S 1065) PLATELET COUNT (test code = 379 K/UL 1015) ABSOLUTE NEUTROPHILS (test code 5.85 K/UL = 1066) ABSOLUTE LYMPHOCYTES (test code 1.69 K/UL = 1067) ABSOLUTE MONOCYTES (test code = 0.54 K/UL 1068) ABSOLUTE EOSINOPHILS (test code 0.07 K/UL = 1040) ABSOLUTE BASOPHILS (test code = 0.07 K/UL 1069) ABS IMMATURE GRANULOCYTES (test 0.03 K/UL code = 1020) ABS NUCLEATED RBCS (test code = 0.00 K/UL 49530) HEMOGLOBIN [id number] 00:00:00 Test Item Value Reference Range Interpretation Comments HEMOGLOBIN A1c (test code = 02785) 5.2 % HEMOGLOBIN [id number] 00:00:00 Test Item Value Reference Range Interpretation Comments HEMOGLOBIN A1c (test code = 02364) 5.2 % HEMOGLOBIN [id number] 00:00:00 Test Item Value Reference Range Interpretation Comments HEMOGLOBIN A1c (test code = 77320) 5.2 % HIV AB/AG COMBO RFLX [id number] 00:00:00 Test Item Value Reference Range Interpretation Comments HIV 1/2 4TH GEN, RFLX CONF (test NON-REACTIVE code = 3514) HIV AB/AG COMBO RFLX [id number] 00:00:00 Test Item Value Reference Range Interpretation Comments HIV 1/2 4TH GEN, RFLX CONF (test NON-REACTIVE code = 3514) ACUTE HEPATITIS [id number] 00:00:00 Test Item Value Reference Range Interpretation Comments HEPATITIS A IgM (test code = NON-REACTIVE 60876) HEPATITIS B CORE IgM (test code NON-REACTIVE = 4644) HEPATITIS B SURF AG (test code = NON-REACTIVE 2739) HEPATITIS C ANTIBODY (test code NON-REACTIVE = 4675) INTERPRETATION HEPATITIS A: (NOTE) (test code = 2552) INTERPRETATION HEPATITIS B: (NOTE) (test code = 07806) INTERPRETATION HEPATITIS C: (NOTE) (test code = 67093) ACUTE HEPATITIS [id number] 00:00:00 Test Item Value Reference Range Interpretation Comments HEPATITIS A IgM (test code = NON-REACTIVE 82014) HEPATITIS B CORE IgM (test code NON-REACTIVE = 4644) HEPATITIS B SURF AG (test code = NON-REACTIVE 2739) HEPATITIS C ANTIBODY (test code NON-REACTIVE = 4675) INTERPRETATION HEPATITIS A: (NOTE) (test code = 2552) INTERPRETATION HEPATITIS B: (NOTE) (test code = 53326) INTERPRETATION HEPATITIS C: (NOTE) (test code = 76088) [id number] 00:00:00 Test Item Value Reference Range Interpretation Comments RPR RESULT (test code = NON-REACTIVE 3501) RPR TITER (test code = 3500) NOT INDIC. TITER [id number] 00:00:00 Test Item Value Reference Range Interpretation Comments RPR RESULT (test code = NON-REACTIVE 3501) RPR TITER (test code = 3500) NOT INDIC. TITER [id number] 00:00:00 Test Item Value Reference Range Interpretation Comments RPR RESULT (test code = NON-REACTIVE 3501) RPR TITER (test code = 3500) NOT INDIC. TITER CBC W/AUTO [id number] 00:00:00 Test Item Value Reference Range Interpretation Comments WBC (test code = 1001) 8.3 K/UL RBC (test code = 1002) 4.48 M/UL HEMOGLOBIN (test code = 1003) 14.1 G/DL HEMATOCRIT (test code = 1004) 40.2 % MCV (test code = 1005) 89.7 fL MCH (test code = 1006) 31.5 PG MCHC (test code = 1007) 35.1 G/DL RDW (test code = 1038) 11.7 % NEUTROPHILS (test code = 1008) 71.0 % LYMPHOCYTES (test code = 1010) 20.5 % MONOCYTES (test code = 1011) 6.5 % EOSINOPHILS (test code = 1012) 0.8 % BASOPHILS (test code = 1013) 0.8 % IMMATURE GRANULOCYTES (test 0.4 % code = 1036) NUCLEATED RBCS (test code = 0.0 /100WBC'S 1065) PLATELET COUNT (test code = 379 K/UL 1015) ABSOLUTE NEUTROPHILS (test code 5.85 K/UL = 1066) ABSOLUTE LYMPHOCYTES (test code 1.69 K/UL = 1067) ABSOLUTE MONOCYTES (test code = 0.54 K/UL 1068) ABSOLUTE EOSINOPHILS (test code 0.07 K/UL = 1040) ABSOLUTE BASOPHILS (test code = 0.07 K/UL 1069) ABS IMMATURE GRANULOCYTES (test 0.03 K/UL code = 1020) ABS NUCLEATED RBCS (test code = 0.00 K/UL 80013) CBC W/AUTO [id number] 00:00:00 Test Item Value Reference Range Interpretation Comments WBC (test code = 1001) 8.3 K/UL RBC (test code = 1002) 4.48 M/UL HEMOGLOBIN (test code = 1003) 14.1 G/DL HEMATOCRIT (test code = 1004) 40.2 % MCV (test code = 1005) 89.7 fL MCH (test code = 1006) 31.5 PG MCHC (test code = 1007) 35.1 G/DL RDW (test code = 1038) 11.7 % NEUTROPHILS (test code = 1008) 71.0 % LYMPHOCYTES (test code = 1010) 20.5 % MONOCYTES (test code = 1011) 6.5 % EOSINOPHILS (test code = 1012) 0.8 % BASOPHILS (test code = 1013) 0.8 % IMMATURE GRANULOCYTES (test 0.4 % code = 1036) NUCLEATED RBCS (test code = 0.0 /100WBC'S 1065) PLATELET COUNT (test code = 379 K/UL 1015) ABSOLUTE NEUTROPHILS (test code 5.85 K/UL = 1066) ABSOLUTE LYMPHOCYTES (test code 1.69 K/UL = 1067) ABSOLUTE MONOCYTES (test code = 0.54 K/UL 1068) ABSOLUTE EOSINOPHILS (test code 0.07 K/UL = 1040) ABSOLUTE BASOPHILS (test code = 0.07 K/UL 1069) ABS IMMATURE GRANULOCYTES (test 0.03 K/UL code = 1020) ABS NUCLEATED RBCS (test code = 0.00 K/UL 33438) CBC W/AUTO [id number] 00:00:00 Test Item Value Reference Range Interpretation Comments WBC (test code = 1001) 8.3 K/UL RBC (test code = 1002) 4.48 M/UL HEMOGLOBIN (test code = 1003) 14.1 G/DL HEMATOCRIT (test code = 1004) 40.2 % MCV (test code = 1005) 89.7 fL MCH (test code = 1006) 31.5 PG MCHC (test code = 1007) 35.1 G/DL RDW (test code = 1038) 11.7 % NEUTROPHILS (test code = 1008) 71.0 % LYMPHOCYTES (test code = 1010) 20.5 % MONOCYTES (test code = 1011) 6.5 % EOSINOPHILS (test code = 1012) 0.8 % BASOPHILS (test code = 1013) 0.8 % IMMATURE GRANULOCYTES (test 0.4 % code = 1036) NUCLEATED RBCS (test code = 0.0 /100WBC'S 1065) PLATELET COUNT (test code = 379 K/UL 1015) ABSOLUTE NEUTROPHILS (test code 5.85 K/UL = 1066) ABSOLUTE LYMPHOCYTES (test code 1.69 K/UL = 1067) ABSOLUTE MONOCYTES (test code = 0.54 K/UL 1068) ABSOLUTE EOSINOPHILS (test code 0.07 K/UL = 1040) ABSOLUTE BASOPHILS (test code = 0.07 K/UL 1069) ABS IMMATURE GRANULOCYTES (test 0.03 K/UL code = 1020) ABS NUCLEATED RBCS (test code = 0.00 K/UL 97909) HEMOGLOBIN [id number] 00:00:00 Test Item Value Reference Range Interpretation Comments HEMOGLOBIN A1c (test code = 14959) 5.2 % HEMOGLOBIN [id number] 00:00:00 Test Item Value Reference Range Interpretation Comments HEMOGLOBIN A1c (test code = 55773) 5.2 % HEMOGLOBIN [id number] 00:00:00 Test Item Value Reference Range Interpretation Comments HEMOGLOBIN A1c (test code = 18945) 5.2 % HIV AB/AG COMBO RFLX [id number] 00:00:00 Test Item Value Reference Range Interpretation Comments HIV 1/2 4TH GEN, RFLX CONF (test NON-REACTIVE code = 3514) HIV AB/AG COMBO RFLX [id number] 00:00:00 Test Item Value Reference Range Interpretation Comments HIV 1/2 4TH GEN, RFLX CONF (test NON-REACTIVE code = 3514) ACUTE HEPATITIS [id number] 00:00:00 Test Item Value Reference Range Interpretation Comments HEPATITIS A IgM (test code = NON-REACTIVE 08113) HEPATITIS B CORE IgM (test code NON-REACTIVE = 4644) HEPATITIS B SURF AG (test code = NON-REACTIVE 2739) HEPATITIS C ANTIBODY (test code NON-REACTIVE = 4675) INTERPRETATION HEPATITIS A: (NOTE) (test code = 2552) INTERPRETATION HEPATITIS B: (NOTE) (test code = 61400) INTERPRETATION HEPATITIS C: (NOTE) (test code = 75913) ACUTE HEPATITIS [id number] 00:00:00 Test Item Value Reference Range Interpretation Comments HEPATITIS A IgM (test code = NON-REACTIVE 42012) HEPATITIS B CORE IgM (test code NON-REACTIVE = 4644) HEPATITIS B SURF AG (test code = NON-REACTIVE 2739) HEPATITIS C ANTIBODY (test code NON-REACTIVE = 4675) INTERPRETATION HEPATITIS A: (NOTE) (test code = 2552) INTERPRETATION HEPATITIS B: (NOTE) (test code = 52244) INTERPRETATION HEPATITIS C: (NOTE) (test code = 49880) [id number] 00:00:00 Test Item Value Reference Range Interpretation Comments RPR RESULT (test code = NON-REACTIVE 3501) RPR TITER (test code = 3500) NOT INDIC. TITER [id number] 00:00:00 Test Item Value Reference Range Interpretation Comments RPR RESULT (test code = NON-REACTIVE 3501) RPR TITER (test code = 3500) NOT INDIC. TITER [id number] 00:00:00 Test Item Value Reference Range Interpretation Comments RPR RESULT (test code = NON-REACTIVE 3501) RPR TITER (test code = 3500) NOT INDIC. TITER CT/NG, NAAT, [id number] 18:09:18 Test Item Value Reference Range Interpretation Comments GONORRHEA, NAAT NEGATIVE NEGATIVE IMPORTA NT NOTICE: SEE (test code = [place] [address]) [email or web address] Note: Assay methodology is nucleic acid amplification 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 CHLAMYDIA, NAAT NEGATIVE NEGATIVE IMPORTA NT NOTICE: SEE (test code = [place] [address]) [email or web address] Note: Assay methodology is nucleic acid amplification 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 VAGINAL PATHOGENS DNA [id number] 15:05:08 Test Item Value Reference Range Interpretation Comments SUZE SPECIES (test code = 59186) NEGATIVE NEGATIVE G. VAGINALIS (test code = ) POSITIVE NEGATIVE A T. VAGINALIS (test code = 74735) NEGATIVE NEGATIVE [id number] 05:20:25 Test Item Value Reference Range Interpretation Comments RPR RESULT (test NON-REACTIVE NON-REACTIVE code = 3501) RPR TITER (test NOT INDIC. NOT INDIC. UNLESS OTHE RWISE code = 3500) TITER INDICATED, ALL TESTING PERFORMED [facility]. [address] [place] [address] 4 LABORATORY DIRE CTOR: JONNY SHRESTHA M.D. CLIA NUMBER [id number] [place] [id number] HIV 1/2 4TH GEN, RFLX [id number] 04:05:17 Test Item Value Reference Range Interpretation Comments HIV 1/2 4TH GEN, RFLX CONF (test NON-REACTIVE NON-REACTIVE code = 3514) HEPATITIS PANEL, [id number] 04:05:17 Test Item Value Reference Range Interpretation Comments HEPATITIS A IgM (test NON-REACTIVE NON-REACTIVE code = 79675) HEPATITIS B CORE IgM NON-REACTIVE NON-REACTIVE (test code = 4644) HEPATITIS B SURF AG NON-REACTIVE NON-REACTIVE (test code = 2739) HEPATITIS C ANTIBODY NON-REACTIVE NON-REACTIVE (test code = 4675) INTERPRETATION (NOTE) Hepatitis A HEPATITIS A: (test code sero logy shows no = 2552) evidence of acu te hepatitis A. INTERPRETATION (NOTE) Hepatitis B HEPATITIS B: (test code sero logy shows no = 72042) evidence of acu te hepatitis B and no indication of exposure to hepatitis B vir us in the previous karla eight months. INTERPRETATION (NOTE) Hepatitis C HEPATITIS C: (test code sero logy shows no = 38515) evidence of exposure to hepatitisC viru s at this time. I t can take up to 12 months after exposure tothe hepatitis C vir us for antibodies to become detectab le in the blood in certain patient s. HIV AB/AG COMBO RFLX [id number] 00:00:00 Test Item Value Reference Range Interpretation Comments HIV 1/2 4TH GEN, RFLX CONF (test NON-REACTIVE code = 3514) HIV AB/AG COMBO RFLX [id number] 00:00:00 Test Item Value Reference Range Interpretation Comments HIV 1/2 4TH GEN, RFLX CONF (test NON-REACTIVE code = 3514) ACUTE HEPATITIS [id number] 00:00:00 Test Item Value Reference Range Interpretation Comments HEPATITIS A IgM (test code = NON-REACTIVE 50853) HEPATITIS B CORE IgM (test code NON-REACTIVE = 4644) HEPATITIS B SURF AG (test code = NON-REACTIVE 2739) HEPATITIS C ANTIBODY (test code NON-REACTIVE = 4675) INTERPRETATION HEPATITIS A: (NOTE) (test code = 2552) INTERPRETATION HEPATITIS B: (NOTE) (test code = 32556) INTERPRETATION HEPATITIS C: (NOTE) (test code = 09085) ACUTE HEPATITIS [id number] 00:00:00 Test Item Value Reference Range Interpretation Comments HEPATITIS A IgM (test code = NON-REACTIVE 78521) HEPATITIS B CORE IgM (test code NON-REACTIVE = 4644) HEPATITIS B SURF AG (test code = NON-REACTIVE 2739) HEPATITIS C ANTIBODY (test code NON-REACTIVE = 4675) INTERPRETATION HEPATITIS A: (NOTE) (test code = 2552) INTERPRETATION HEPATITIS B: (NOTE) (test code = 22340) INTERPRETATION HEPATITIS C: (NOTE) (test code = 50504) GC AND CHLAMYDIA, AMPLIFIED, [id number] 00:00:00 Test Item Value Reference Range Interpretation Comments GONORRHEA, NAAT (test code = 99767) NEGATIVE CHLAMYDIA, NAAT (test code = 67280) NEGATIVE GC AND CHLAMYDIA, AMPLIFIED, [id number] 00:00:00 Test Item Value Reference Range Interpretation Comments GONORRHEA, NAAT (test code = 76297) NEGATIVE CHLAMYDIA, NAAT (test code = 67770) NEGATIVE [id number] 00:00:00 Test Item Value Reference Range Interpretation Comments RPR RESULT (test code = NON-REACTIVE 3501) RPR TITER (test code = 3500) NOT INDIC. TITER [id number] 00:00:00 Test Item Value Reference Range Interpretation Comments RPR RESULT (test code = NON-REACTIVE 3501) RPR TITER (test code = 3500) NOT INDIC. TITER [id number] 00:00:00 Test Item Value Reference Range Interpretation Comments RPR RESULT (test code = NON-REACTIVE 3501) RPR TITER (test code = 3500) NOT INDIC. TITER VAGINAL PATHOGENS DNA [id number] 00:00:00 Test Item Value Reference Range Interpretation Comments SUZE SPECIES (test code = 54458) NEGATIVE G. VAGINALIS (test code = ) POSITIVE T. VAGINALIS (test code = ) NEGATIVE VAGINAL PATHOGENS DNA [id number] 00:00:00 Test Item Value Reference Range Interpretation Comments SUZE SPECIES (test code = 07001) NEGATIVE G. VAGINALIS (test code = 47713) POSITIVE T. VAGINALIS (test code = 56109) NEGATIVE HIV AB/AG COMBO RFLX [id number] 00:00:00 Test Item Value Reference Range Interpretation Comments HIV 1/2 4TH GEN, RFLX CONF (test NON-REACTIVE code = 3514) HIV AB/AG COMBO RFLX [id number] 00:00:00 Test Item Value Reference Range Interpretation Comments HIV 1/2 4TH GEN, RFLX CONF (test NON-REACTIVE code = 3514) ACUTE HEPATITIS [id number] 00:00:00 Test Item Value Reference Range Interpretation Comments HEPATITIS A IgM (test code = NON-REACTIVE 85591) HEPATITIS B CORE IgM (test code NON-REACTIVE = 4644) HEPATITIS B SURF AG (test code = NON-REACTIVE 2739) HEPATITIS C ANTIBODY (test code NON-REACTIVE = 4675) INTERPRETATION HEPATITIS A: (NOTE) (test code = 2552) INTERPRETATION HEPATITIS B: (NOTE) (test code = 95119) INTERPRETATION HEPATITIS C: (NOTE) (test code = 21091) ACUTE HEPATITIS [id number] 00:00:00 Test Item Value Reference Range Interpretation Comments HEPATITIS A IgM (test code = NON-REACTIVE 02258) HEPATITIS B CORE IgM (test code NON-REACTIVE = 4644) HEPATITIS B SURF AG (test code = NON-REACTIVE 2739) HEPATITIS C ANTIBODY (test code NON-REACTIVE = 4675) INTERPRETATION HEPATITIS A: (NOTE) (test code = 2552) INTERPRETATION HEPATITIS B: (NOTE) (test code = 70920) INTERPRETATION HEPATITIS C: (NOTE) (test code = 47007) GC AND CHLAMYDIA, AMPLIFIED, [id number] 00:00:00 Test Item Value Reference Range Interpretation Comments GONORRHEA, NAAT (test code = 01472) NEGATIVE CHLAMYDIA, NAAT (test code = 75238) NEGATIVE GC AND CHLAMYDIA, AMPLIFIED, [id number] 00:00:00 Test Item Value Reference Range Interpretation Comments GONORRHEA, NAAT (test code = 08645) NEGATIVE CHLAMYDIA, NAAT (test code = 34756) NEGATIVE [id number] 00:00:00 Test Item Value Reference Range Interpretation Comments RPR RESULT (test code = NON-REACTIVE 3501) RPR TITER (test code = 3500) NOT INDIC. TITER [id number] 00:00:00 Test Item Value Reference Range Interpretation Comments RPR RESULT (test code = NON-REACTIVE 3501) RPR TITER (test code = 3500) NOT INDIC. TITER [id number] 00:00:00 Test Item Value Reference Range Interpretation Comments RPR RESULT (test code = NON-REACTIVE 3501) RPR TITER (test code = 3500) NOT INDIC. TITER VAGINAL PATHOGENS DNA [id number] 00:00:00 Test Item Value Reference Range Interpretation Comments SUZE SPECIES (test code = ) NEGATIVE G. VAGINALIS (test code = 69930) POSITIVE T. VAGINALIS (test code = 06601) NEGATIVE VAGINAL PATHOGENS DNA [id number] 00:00:00 Test Item Value Reference Range Interpretation Comments SUZE SPECIES (test code = ) NEGATIVE G. VAGINALIS (test code = 66294) POSITIVE T. VAGINALIS (test code = 39034) NEGATIVE HIV AB/AG COMBO RFLX [id number] 00:00:00 Test Item Value Reference Range Interpretation Comments HIV 1/2 4TH GEN, RFLX CONF (test NON-REACTIVE code = 3514) HIV AB/AG COMBO RFLX [id number] 00:00:00 Test Item Value Reference Range Interpretation Comments HIV 1/2 4TH GEN, RFLX CONF (test NON-REACTIVE code = 3514) ACUTE HEPATITIS [id number] 00:00:00 Test Item Value Reference Range Interpretation Comments HEPATITIS A IgM (test code = NON-REACTIVE 02575) HEPATITIS B CORE IgM (test code NON-REACTIVE = 4644) HEPATITIS B SURF AG (test code = NON-REACTIVE 2739) HEPATITIS C ANTIBODY (test code NON-REACTIVE = 4675) INTERPRETATION HEPATITIS A: (NOTE) (test code = 2552) INTERPRETATION HEPATITIS B: (NOTE) (test code = 57940) INTERPRETATION HEPATITIS C: (NOTE) (test code = 08993) ACUTE HEPATITIS [id number] 00:00:00 Test Item Value Reference Range Interpretation Comments HEPATITIS A IgM (test code = NON-REACTIVE 70941) HEPATITIS B CORE IgM (test code NON-REACTIVE = 4644) HEPATITIS B SURF AG (test code = NON-REACTIVE 2739) HEPATITIS C ANTIBODY (test code NON-REACTIVE = 4675) INTERPRETATION HEPATITIS A: (NOTE) (test code = 2552) INTERPRETATION HEPATITIS B: (NOTE) (test code = 20157) INTERPRETATION HEPATITIS C: (NOTE) (test code = 07310) GC AND CHLAMYDIA, AMPLIFIED, [id number] 00:00:00 Test Item Value Reference Range Interpretation Comments GONORRHEA, NAAT (test code = 86280) NEGATIVE CHLAMYDIA, NAAT (test code = 99653) NEGATIVE GC AND CHLAMYDIA, AMPLIFIED, [id number] 00:00:00 Test Item Value Reference Range Interpretation Comments GONORRHEA, NAAT (test code = 84571) NEGATIVE CHLAMYDIA, NAAT (test code = 72575) NEGATIVE [id number] 00:00:00 Test Item Value Reference Range Interpretation Comments RPR RESULT (test code = NON-REACTIVE 3501) RPR TITER (test code = 3500) NOT INDIC. TITER [id number] 00:00:00 Test Item Value Reference Range Interpretation Comments RPR RESULT (test code = NON-REACTIVE 3501) RPR TITER (test code = 3500) NOT INDIC. TITER [id number] 00:00:00 Test Item Value Reference Range Interpretation Comments RPR RESULT (test code = NON-REACTIVE 3501) RPR TITER (test code = 3500) NOT INDIC. TITER VAGINAL PATHOGENS DNA [id number] 00:00:00 Test Item Value Reference Range Interpretation Comments SUZE SPECIES (test code = ) NEGATIVE G. VAGINALIS (test code = 82661) POSITIVE T. VAGINALIS (test code = 33152) NEGATIVE VAGINAL PATHOGENS DNA [id number] 00:00:00 Test Item Value Reference Range Interpretation Comments SUZE SPECIES (test code = 40955) NEGATIVE G. VAGINALIS (test code = 76508) POSITIVE T. VAGINALIS (test code = 48346) NEGATIVE SARS-CoV-2 (COVID-19), RT-PCR/[id number] 15:37:51 Test Item Value Reference Interpretation Comments Range SARS-CoV-2 NEGATIVE SEE NOTE SARS-CoV-2 RNA NOT INTERPRETATION DETECTEDNegat jose (test code = 72437) results do not preclude SARS-C oV-2 infection and s hould notbe used as t he sole basis for patie nt management deci sions. Negativeresults must be combined wit h clinical observ ations, patient history ,and epidemiological information. Op timum specimen types and timingfor peak viral levels during infections caus ed by SARS-CoV-2 have notbeen determi jose. Collection of m ultiple specimens or ty pes ofspecimens may be necessary to de tect virus. Improper specimencollect ion and handling, seque nce variability und er primers/probes, or organism presen t below the limit of de tection may lead to falsenegative r esults. Positive and ne gative predictive valu es oftesting are h ighly dependent on prevalence. Fal se negative testre sults are more likely when prevalence is h igh. SOURCE (test code = NASOPHARY[place]GEAL Note: [place] [address]) Allyssa Miguel Angel [place] l-Time RT-PCR. The exp ected result or refer ence range is NEGATI VE (Not Detected). For more information reg arding COVID-19 testin g to include clinicalinforma tion, methodology det ail, intended use, F DA authorization andrecommended fact sheets for hoang ents or healthcare prov iders, see NewTest Announcement: SARS-CoV-2 (COV ID-19) by NAAT at URL below (note,fact shee ts are provided by met hod given in report:https:// [email or web address] [email or web address] ient-communicat ions/ Alternatively, see downloadable PD F fact sheet at:https://www. [employer]/COVID-19-R T-PCR UNLESS OTHERWIS E INDICATED, ALL TESTING PERFORMED [facility], [place] [id number] [place], [place] [id number] DIRECTOR: JONNY FREY M.D. CLIA NUMBER [id number] CAP ACCREDITATION N O. [id number] SARS-CoV-2 (COVID-19) by RT-PCR (HIGH RISK)2021-06-04 00:00:00 Test Item Value Reference Range Interpretation Comments SARS-CoV-2 INTERPRETATION NEGATIVE (test code = 84006) SOURCE (test code = 16455) NASOPHARYNGEAL SARS-CoV-2 (COVID-19) by RT-PCR (HIGH RISK)2021-06-04 00:00:00 Test Item Value Reference Range Interpretation Comments SARS-CoV-2 INTERPRETATION NEGATIVE (test code = 57031) SOURCE (test code = 87512) NASOPHARYNGEAL SARS-CoV-2 (COVID-19) by RT-PCR (HIGH RISK)2021-06-04 00:00:00 Test Item Value Reference Range Interpretation Comments SARS-CoV-2 INTERPRETATION NEGATIVE (test code = 00870) SOURCE (test code = 63428) NASOPHARYNGEAL SARS-CoV-2 (COVID-19) by RT-PCR (HIGH RISK)2021-06-04 00:00:00 Test Item Value Reference Range Interpretation Comments SARS-CoV-2 INTERPRETATION NEGATIVE (test code = 91741) SOURCE (test code = 99604) NASOPHARYNGEAL SARS-CoV-2 (COVID-19) by RT-PCR (HIGH RISK)2021-06-04 00:00:00 Test Item Value Reference Range Interpretation Comments SARS-CoV-2 INTERPRETATION NEGATIVE (test code = 78022) SOURCE (test code = 94311) NASOPHARYNGEAL SARS-CoV-2 (COVID-19) by RT-PCR (HIGH RISK)2021-06-04 00:00:00 Test Item Value Reference Range Interpretation Comments SARS-CoV-2 INTERPRETATION NEGATIVE (test code = 83136) SOURCE (test code = 22256) NASOPHARYNGEAL CT/NG, NAAT, [id number] 11:27:50 Test Item Value Reference Range Interpretation Comments GONORRHEA, NAAT POSITIVE, SEE NEGATIVE A IMPORT ANT NOTICE: (test code = [place] [address]) [email or web address] eKit Note: Assay met hodology is nucleic acid amplification 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 IMPORTANT NOTIC E: SEE ANNOUNCEMENT AT [email or web address] Note: Assay met hodology is nucleic acid amplification 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 Positive results repeate d and confirmed. CHLAMYDIA, NAAT POSITIVE, SEE NEGATIVE A IMPORT ANT NOTICE: (test code = [place] [address]) [email or web address] Note: Assay met hodology is nucleic acid amplification 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 IMPORTANT NOTIC E: SEE ANNOUNCEMENT AT [email or web address] eKit Note: Assay met hodology is nucleic acid amplification 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 Positive results repeate d and confirmed. GC AND CHLAMYDIA, AMPLIFIED, [id number] 00:00:00 Test Item Value Reference Range Interpretation Comments GONORRHEA, NAAT (test POSITIVE, SEE BELOW code = 17215) CHLAMYDIA, NAAT (test POSITIVE, SEE BELOW code = 67682) GC AND CHLAMYDIA, AMPLIFIED, [id number] 00:00:00 Test Item Value Reference Range Interpretation Comments GONORRHEA, NAAT (test POSITIVE, SEE BELOW code = 62335) CHLAMYDIA, NAAT (test POSITIVE, SEE BELOW code = 61621) GC AND CHLAMYDIA, AMPLIFIED, [id number] 00:00:00 Test Item Value Reference Range Interpretation Comments GONORRHEA, NAAT (test POSITIVE, SEE BELOW code = 49148) CHLAMYDIA, NAAT (test POSITIVE, SEE BELOW code = 29707) GC AND CHLAMYDIA, AMPLIFIED, [id number] 00:00:00 Test Item Value Reference Range Interpretation Comments GONORRHEA, NAAT (test POSITIVE, SEE BELOW code = 67518) CHLAMYDIA, NAAT (test POSITIVE, SEE BELOW code = 23141) GC AND CHLAMYDIA, AMPLIFIED, [id number] 00:00:00 Test Item Value Reference Range Interpretation Comments GONORRHEA, NAAT (test POSITIVE, SEE BELOW code = 04748) CHLAMYDIA, NAAT (test POSITIVE, SEE BELOW code = 84764) GC AND CHLAMYDIA, AMPLIFIED, [id number] 00:00:00 Test Item Value Reference Range Interpretation Comments GONORRHEA, NAAT (test POSITIVE, SEE BELOW code = 87503) CHLAMYDIA, NAAT (test POSITIVE, SEE BELOW code = 05577) HIV 1/2 4TH GEN, RFLX [id number] 05:00:55 Test Item Value Reference Range Interpretation Comments HIV 1/2 4TH GEN, RFLX CONF (test NON-REACTIVE NON-REACTIVE code = 3514) HEPATITIS PANEL, [id number] 05:00:55 Test Item Value Reference Range Interpretation Comments HEPATITIS A IgM (test NON-REACTIVE NON-REACTIVE code = 97290) HEPATITIS B CORE IgM NON-REACTIVE NON-REACTIVE (test code = 4644) HEPATITIS B SURF AG NON-REACTIVE NON-REACTIVE (test code = 2739) HEPATITIS C ANTIBODY NON-REACTIVE NON-REACTIVE (test code = 4675) INTERPRETATION (NOTE) Hepatitis A HEPATITIS A: (test serology shows no code = 2552) evidence of acu te hepatitis A. INTERPRETATION (NOTE) Hepatitis B HEPATITIS B: (test serology shows no code = 92316) evidence of ac chelle hepatitis B and no indication of exposure to hepatitis B vir us in the previous si xto eight months. INTERPRETATION (NOTE) Hepatitis C HEPATITIS C: (test serology shows no code = 44671) evidence of ex posure to hepatitisC v irus at this time. I t can take up to 12 m onths after exposure tothe hepatitis C vir us for antibodies to become detectab le in the blood in ce rtain patients. UNLES S OTHERWISE INDIC ATED, ALL TESTING PERFORMED [facility], [facility]. [address] [place] [id number] [place] [address] DIRECTOR: JONNY FREY M.D. IA NUMBER [id number] [place] [id number] 04:58:29 Test Item Value Reference Range Interpretation Comments RPR RESULT (test code = NON-REACTIVE NON-REACTIVE 3501) RPR TITER (test code = 3500) NOT INDIC. TITER NOT INDIC. HIV AB/AG COMBO RFLX [id number] 00:00:00 Test Item Value Reference Range Interpretation Comments HIV 1/2 4TH GEN, RFLX CONF (test NON-REACTIVE code = 3514) HIV AB/AG COMBO RFLX [id number] 00:00:00 Test Item Value Reference Range Interpretation Comments HIV 1/2 4TH GEN, RFLX CONF (test NON-REACTIVE code = 3514) [id number] 00:00:00 Test Item Value Reference Range Interpretation Comments RPR RESULT (test code = NON-REACTIVE 3501) RPR TITER (test code = 3500) NOT INDIC. TITER [id number] 00:00:00 Test Item Value Reference Range Interpretation Comments RPR RESULT (test code = NON-REACTIVE 3501) RPR TITER (test code = 3500) NOT INDIC. TITER [id number] 00:00:00 Test Item Value Reference Range Interpretation Comments RPR RESULT (test code = NON-REACTIVE 3501) RPR TITER (test code = 3500) NOT INDIC. TITER ACUTE HEPATITIS [id number] 00:00:00 Test Item Value Reference Range Interpretation Comments HEPATITIS A IgM (test code = NON-REACTIVE 52634) HEPATITIS B CORE IgM (test code NON-REACTIVE = 4644) HEPATITIS B SURF AG (test code = NON-REACTIVE 2739) HEPATITIS C ANTIBODY (test code NON-REACTIVE = 4675) INTERPRETATION HEPATITIS A: (NOTE) (test code = 2552) INTERPRETATION HEPATITIS B: (NOTE) (test code = 93640) INTERPRETATION HEPATITIS C: (NOTE) (test code = 68023) ACUTE HEPATITIS [id number] 00:00:00 Test Item Value Reference Range Interpretation Comments HEPATITIS A IgM (test code = NON-REACTIVE 99733) HEPATITIS B CORE IgM (test code NON-REACTIVE = 4644) HEPATITIS B SURF AG (test code = NON-REACTIVE 2739) HEPATITIS C ANTIBODY (test code NON-REACTIVE = 4675) INTERPRETATION HEPATITIS A: (NOTE) (test code = 2552) INTERPRETATION HEPATITIS B: (NOTE) (test code = 58475) INTERPRETATION HEPATITIS C: (NOTE) (test code = 12492) HIV AB/AG COMBO RFLX [id number] 00:00:00 Test Item Value Reference Range Interpretation Comments HIV 1/2 4TH GEN, RFLX CONF (test NON-REACTIVE code = 3514) HIV AB/AG COMBO RFLX [id number] 00:00:00 Test Item Value Reference Range Interpretation Comments HIV 1/2 4TH GEN, RFLX CONF (test NON-REACTIVE code = 3514) [id number] 00:00:00 Test Item Value Reference Range Interpretation Comments RPR RESULT (test code = NON-REACTIVE 3501) RPR TITER (test code = 3500) NOT INDIC. TITER [id number] 00:00:00 Test Item Value Reference Range Interpretation Comments RPR RESULT (test code = NON-REACTIVE 3501) RPR TITER (test code = 3500) NOT INDIC. TITER [id number] 00:00:00 Test Item Value Reference Range Interpretation Comments RPR RESULT (test code = NON-REACTIVE 3501) RPR TITER (test code = 3500) NOT INDIC. TITER ACUTE HEPATITIS [id number] 00:00:00 Test Item Value Reference Range Interpretation Comments HEPATITIS A IgM (test code = NON-REACTIVE 62314) HEPATITIS B CORE IgM (test code NON-REACTIVE = 4644) HEPATITIS B SURF AG (test code = NON-REACTIVE 2739) HEPATITIS C ANTIBODY (test code NON-REACTIVE = 4675) INTERPRETATION HEPATITIS A: (NOTE) (test code = 2552) INTERPRETATION HEPATITIS B: (NOTE) (test code = 91959) INTERPRETATION HEPATITIS C: (NOTE) (test code = 24107) ACUTE HEPATITIS [id number] 00:00:00 Test Item Value Reference Range Interpretation Comments HEPATITIS A IgM (test code = NON-REACTIVE 88673) HEPATITIS B CORE IgM (test code NON-REACTIVE = 4644) HEPATITIS B SURF AG (test code = NON-REACTIVE 2739) HEPATITIS C ANTIBODY (test code NON-REACTIVE = 4675) INTERPRETATION HEPATITIS A: (NOTE) (test code = 2552) INTERPRETATION HEPATITIS B: (NOTE) (test code = 73301) INTERPRETATION HEPATITIS C: (NOTE) (test code = 46058) HIV AB/AG COMBO RFLX [id number] 00:00:00 Test Item Value Reference Range Interpretation Comments HIV 1/2 4TH GEN, RFLX CONF (test NON-REACTIVE code = 3514) HIV AB/AG COMBO RFLX [id number] 00:00:00 Test Item Value Reference Range Interpretation Comments HIV 1/2 4TH GEN, RFLX CONF (test NON-REACTIVE code = 3514) [id number] 00:00:00 Test Item Value Reference Range Interpretation Comments RPR RESULT (test code = NON-REACTIVE 3501) RPR TITER (test code = 3500) NOT INDIC. TITER [id number] 00:00:00 Test Item Value Reference Range Interpretation Comments RPR RESULT (test code = NON-REACTIVE 3501) RPR TITER (test code = 3500) NOT INDIC. TITER [id number] 00:00:00 Test Item Value Reference Range Interpretation Comments RPR RESULT (test code = NON-REACTIVE 3501) RPR TITER (test code = 3500) NOT INDIC. TITER ACUTE HEPATITIS [id number] 00:00:00 Test Item Value Reference Range Interpretation Comments HEPATITIS A IgM (test code = NON-REACTIVE 70196) HEPATITIS B CORE IgM (test code NON-REACTIVE = 4644) HEPATITIS B SURF AG (test code = NON-REACTIVE 2739) HEPATITIS C ANTIBODY (test code NON-REACTIVE = 4675) INTERPRETATION HEPATITIS A: (NOTE) (test code = 2552) INTERPRETATION HEPATITIS B: (NOTE) (test code = 84275) INTERPRETATION HEPATITIS C: (NOTE) (test code = 70675) ACUTE HEPATITIS [id number] 00:00:00 Test Item Value Reference Range Interpretation Comments HEPATITIS A IgM (test code = NON-REACTIVE 44348) HEPATITIS B CORE IgM (test code NON-REACTIVE = 4644) HEPATITIS B SURF AG (test code = NON-REACTIVE 2739) HEPATITIS C ANTIBODY (test code NON-REACTIVE = 4675) INTERPRETATION HEPATITIS A: (NOTE) (test code = 2552) INTERPRETATION HEPATITIS B: (NOTE) (test code = 58830) INTERPRETATION HEPATITIS C: (NOTE) (test code = 44913) RPR [ADDED]2021-02-18 00:00:00 Test Item Value Reference Range Interpretation Comments RPR RESULT (test code = NON-REACTIVE 3501) RPR TITER (test code = 3500) NOT INDIC. TITER RPR [ADDED]2021-02-18 00:00:00 Test Item Value Reference Range Interpretation Comments RPR RESULT (test code = NON-REACTIVE 3501) RPR TITER (test code = 3500) NOT INDIC. TITER RPR [ADDED]2021-02-18 00:00:00 Test Item Value Reference Range Interpretation Comments RPR RESULT (test code = NON-REACTIVE 3501) RPR TITER (test code = 3500) NOT INDIC. TITER RPR [ADDED]2021-02-18 00:00:00 Test Item Value Reference Range Interpretation Comments RPR RESULT (test code = NON-REACTIVE 3501) RPR TITER (test code = 3500) NOT INDIC. TITER RPR [ADDED]2021-02-18 00:00:00 Test Item Value Reference Range Interpretation Comments RPR RESULT (test code = NON-REACTIVE 3501) RPR TITER (test code = 3500) NOT INDIC. TITER RPR [ADDED]2021-02-18 00:00:00 Test Item Value Reference Range Interpretation Comments RPR RESULT (test code = NON-REACTIVE 3501) RPR TITER (test code = 3500) NOT INDIC. TITER RPR [ADDED]2021-02-18 00:00:00 Test Item Value Reference Range Interpretation Comments RPR RESULT (test code = NON-REACTIVE 3501) RPR TITER (test code = 3500) NOT INDIC. TITER RPR [ADDED]2021-02-18 00:00:00 Test Item Value Reference Range Interpretation Comments RPR RESULT (test code = NON-REACTIVE 3501) RPR TITER (test code = 3500) NOT INDIC. TITER RPR [ADDED]2021-02-18 00:00:00 Test Item Value Reference Range Interpretation Comments RPR RESULT (test code = NON-REACTIVE 3501) RPR TITER (test code = 3500) NOT INDIC. TITER VAGINAL PATHOGENS DNA [id number] 00:00:00 Test Item Value Reference Range Interpretation Comments SUZE SPECIES (test code = 47820) NEGATIVE G. VAGINALIS (test code = 03051) POSITIVE T. VAGINALIS (test code = 37364) NEGATIVE VAGINAL PATHOGENS DNA [id number] 00:00:00 Test Item Value Reference Range Interpretation Comments SUZE SPECIES (test code = 86855) NEGATIVE G. VAGINALIS (test code = 76207) POSITIVE T. VAGINALIS (test code = 33093) NEGATIVE HIV 1/2 4TH GEN, RFLX CONF [ADDED]2021-02-17 00:00:00 Test Item Value Reference Range Interpretation Comments HIV 1/2 4TH GEN, RFLX CONF (test NON-REACTIVE code = 3514) HIV 1/2 4TH GEN, RFLX CONF [ADDED]2021-02-17 00:00:00 Test Item Value Reference Range Interpretation Comments HIV 1/2 4TH GEN, RFLX CONF (test NON-REACTIVE code = 3514) VAGINAL PATHOGENS DNA [id number] 00:00:00 Test Item Value Reference Range Interpretation Comments SUZE SPECIES (test code = 81895) NEGATIVE G. VAGINALIS (test code = 37377) POSITIVE T. VAGINALIS (test code = 55012) NEGATIVE VAGINAL PATHOGENS DNA [id number] 00:00:00 Test Item Value Reference Range Interpretation Comments SUZE SPECIES (test code = ) NEGATIVE G. VAGINALIS (test code = 66617) POSITIVE T. VAGINALIS (test code = 68864) NEGATIVE HIV 1/2 4TH GEN, RFLX CONF [ADDED]2021-02-17 00:00:00 Test Item Value Reference Range Interpretation Comments HIV 1/2 4TH GEN, RFLX CONF (test NON-REACTIVE code = 4) HIV 1/2 4TH GEN, RFLX CONF [ADDED]2021-02-17 00:00:00 Test Item Value Reference Range Interpretation Comments HIV 1/2 4TH GEN, RFLX CONF (test NON-REACTIVE code = 4) VAGINAL PATHOGENS DNA [id number] 00:00:00 Test Item Value Reference Range Interpretation Comments SUZE SPECIES (test code = ) NEGATIVE G. VAGINALIS (test code = 85692) POSITIVE T. VAGINALIS (test code = 12982) NEGATIVE VAGINAL PATHOGENS DNA [id number] 00:00:00 Test Item Value Reference Range Interpretation Comments SUZE SPECIES (test code = ) NEGATIVE G. VAGINALIS (test code = 48861) POSITIVE T. VAGINALIS (test code = 83764) NEGATIVE HIV 1/2 4TH GEN, RFLX CONF [ADDED]2021-02-17 00:00:00 Test Item Value Reference Range Interpretation Comments HIV 1/2 4TH GEN, RFLX CONF (test NON-REACTIVE code = 4) HIV 1/2 4TH GEN, RFLX CONF [ADDED]2021-02-17 00:00:00 Test Item Value Reference Range Interpretation Comments HIV 1/2 4TH GEN, RFLX CONF (test NON-REACTIVE code = 4) CT/NG, NAAT, URINE [ADDED]2021-02-16 00:00:00 Test Item Value Reference Range Interpretation Comments GONORRHEA, NAAT (test code = 26316) NEGATIVE CHLAMYDIA, NAAT (test code = 55743) NEGATIVE CT/NG, NAAT, URINE [ADDED]2021-02-16 00:00:00 Test Item Value Reference Range Interpretation Comments GONORRHEA, NAAT (test code = 75058) NEGATIVE CHLAMYDIA, NAAT (test code = 09385) NEGATIVE CT/NG, NAAT, URINE [ADDED]2021-02-16 00:00:00 Test Item Value Reference Range Interpretation Comments GONORRHEA, NAAT (test code = 79455) NEGATIVE CHLAMYDIA, NAAT (test code = 35017) NEGATIVE CT/NG, NAAT, URINE [ADDED]2021-02-16 00:00:00 Test Item Value Reference Range Interpretation Comments GONORRHEA, NAAT (test code = 31808) NEGATIVE CHLAMYDIA, NAAT (test code = 27479) NEGATIVE CT/NG, NAAT, URINE [ADDED]2021-02-16 00:00:00 Test Item Value Reference Range Interpretation Comments GONORRHEA, NAAT (test code = 08335) NEGATIVE CHLAMYDIA, NAAT (test code = 47011) NEGATIVE CT/NG, NAAT, URINE [ADDED]2021-02-16 00:00:00 Test Item Value Reference Range Interpretation Comments GONORRHEA, NAAT (test code = 99956) NEGATIVE CHLAMYDIA, NAAT (test code = 70894) NEGATIVE GC AND CHLAMYDIA, AMPLIFIED, [id number] 00:00:00 Test Item Value Reference Range Interpretation Comments GONORRHEA, NAAT (test code TEST NOT PERFORMED = 38717) CHLAMYDIA, NAAT (test code TEST NOT PERFORMED = 17505) GC AND CHLAMYDIA, AMPLIFIED, [id number] 00:00:00 Test Item Value Reference Range Interpretation Comments GONORRHEA, NAAT (test code TEST NOT PERFORMED = 92847) CHLAMYDIA, NAAT (test code TEST NOT PERFORMED = 43315) GC AND CHLAMYDIA, AMPLIFIED, [id number] 00:00:00 Test Item Value Reference Range Interpretation Comments GONORRHEA, NAAT (test code TEST NOT PERFORMED = 95310) CHLAMYDIA, NAAT (test code TEST NOT PERFORMED = 96026) GC AND CHLAMYDIA, AMPLIFIED, [id number] 00:00:00 Test Item Value Reference Range Interpretation Comments GONORRHEA, NAAT (test code TEST NOT PERFORMED = 17172) CHLAMYDIA, NAAT (test code TEST NOT PERFORMED = 65359) GC AND CHLAMYDIA, AMPLIFIED, [id number] 00:00:00 Test Item Value Reference Range Interpretation Comments GONORRHEA, NAAT (test code TEST NOT PERFORMED = 98510) CHLAMYDIA, NAAT (test code TEST NOT PERFORMED = 07047) GC AND CHLAMYDIA, AMPLIFIED, [id number] 00:00:00 Test Item Value Reference Range Interpretation Comments GONORRHEA, NAAT (test code TEST NOT PERFORMED = 55986) CHLAMYDIA, NAAT (test code TEST NOT PERFORMED = 09462) CHLAMYDIA/N. GONORRHOEAE RNA, TMA (REFL)2021-01-22 00:00:00 Test Item Value Reference Range Interpretation Comments CHLAMYDIA TRACHOMATIS RNA, TMA, NOT DETECTED UROGENITAL (test code = 71506-0) NEISSERIA GONORRHOEAE RNA, TMA, NOT DETECTED UROGENITAL (test code = 69796-1) COMMENT (test code = ) CHLAMYDIA/N. GONORRHOEAE RNA, TMA (REFL)2021-01-22 00:00:00 Test Item Value Reference Range Interpretation Comments CHLAMYDIA TRACHOMATIS RNA, TMA, NOT DETECTED UROGENITAL (test code = 23468-2) NEISSERIA GONORRHOEAE RNA, TMA, NOT DETECTED UROGENITAL (test code = 39929-1) COMMENT (test code = ) CHLAMYDIA/N. GONORRHOEAE RNA, TMA (REFL)2021-01-22 00:00:00 Test Item Value Reference Range Interpretation Comments CHLAMYDIA TRACHOMATIS RNA, TMA, NOT DETECTED UROGENITAL (test code = 07152-2) NEISSERIA GONORRHOEAE RNA, TMA, NOT DETECTED UROGENITAL (test code = 93417-6) COMMENT (test code = ) C. TRACHOMATIS/N. GONORRHOEAE, RECTAL/PHARYNGEAL [ADDED]2021-01-13 00:00:00 Test Item Value Reference Range Interpretation Comments SOURCE (test code = 97228) THROAT C. TRACHOMATIS (test code = 04092) NEGATIVE N. GONORRHOEAE (test code = 74708) NEGATIVE C. TRACHOMATIS/N. GONORRHOEAE, RECTAL/PHARYNGEAL [ADDED]2021-01-13 00:00:00 Test Item Value Reference Range Interpretation Comments SOURCE (test code = 95390) THROAT C. TRACHOMATIS (test code = 22164) NEGATIVE N. GONORRHOEAE (test code = 52471) NEGATIVE C. TRACHOMATIS/N. GONORRHOEAE, RECTAL/PHARYNGEAL [ADDED]2021-01-13 00:00:00 Test Item Value Reference Range Interpretation Comments SOURCE (test code = 01051) THROAT C. TRACHOMATIS (test code = 05929) NEGATIVE N. GONORRHOEAE (test code = 95979) NEGATIVE CARDIO IQ(R) VITAMIN D, 25-HYDROXY, [id number] 00:00:00 Test Item Value Reference Range Interpretation Comments VITAMIN D, 25-OH, TOTAL (test code 21 ng/mL = 66777-7) VITAMIN D, 25-OH, D3 (test code = 21 ng/mL 1989-05) VITAMIN D, 25-OH, D2 (test code = <4.0 ng/mL 2235-8) CHLAMYDIA/N. GONORRHOEAE RNA, [id number] 00:00:00 Test Item Value Reference Range Interpretation Comments CHLAMYDIA TRACHOMATIS RNA, TMA, DETECTED UROGENITAL (test code = 23775-5) NEISSERIA GONORRHOEAE RNA, TMA, NOT DETECTED UROGENITAL (test code = 95612-4) COMMENT (test code = ) CARDIO IQ(R) VITAMIN D, 25-HYDROXY, [id number]/MS/[id number] 00:00:00 Test Item Value Reference Range Interpretation Comments VITAMIN D, 25-OH, TOTAL (test code 21 ng/mL = 55166-8) VITAMIN D, 25-OH, D3 (test code = 21 ng/mL 1989-05) VITAMIN D, 25-OH, D2 (test code = <4.0 ng/mL 8) CHLAMYDIA/N. GONORRHOEAE RNA, [id number] 00:00:00 Test Item Value Reference Range Interpretation Comments CHLAMYDIA TRACHOMATIS RNA, TMA, DETECTED UROGENITAL (test code = 94195-5) NEISSERIA GONORRHOEAE RNA, TMA, NOT DETECTED UROGENITAL (test code = 30557-4) COMMENT (test code = ) CARDIO IQ(R) VITAMIN D, 25-HYDROXY, LC/MS/[id number] 00:00:00 Test Item Value Reference Range Interpretation Comments VITAMIN D, 25-OH, TOTAL (test code 21 ng/mL = 84900-4) VITAMIN D, 25-OH, D3 (test code = 21 ng/mL 1989-05) VITAMIN D, 25-OH, D2 (test code = <4.0 ng/mL 2235-8) CHLAMYDIA/N. GONORRHOEAE RNA, [id number] 00:00:00 Test Item Value Reference Range Interpretation Comments CHLAMYDIA TRACHOMATIS RNA, TMA, DETECTED UROGENITAL (test code = 00654-6) NEISSERIA GONORRHOEAE RNA, TMA, NOT DETECTED UROGENITAL (test code = 99157-3) COMMENT (test code = ) HIV 1/2 ANTIGEN/ANTIBODY,FOURTH GENERATION [id number] 00:00:00 Test Item Value Reference Range Interpretation Comments HIV AG/AB, 4TH GEN (test code = NON-REACTIVE 70580-3) CBC (INCLUDES DIFF/PLT)2020-10-06 00:00:00 Test Item Value Reference Range Interpretation Comments WHITE BLOOD CELL COUNT (test 4.7 Thousand/uL code = 6690-2) RED BLOOD CELL COUNT (test 4.51 Million/uL code = 789-8) HEMOGLOBIN (test code = 14.0 g/dL 718-7) HEMATOCRIT (test code = 42.4 % 4544-3) MCV (test code = 787-2) 94.0 fL MCH (test code = 785-6) 31.0 pg MCHC (test code = 786-4) 33.0 g/dL RDW (test code = 788-0) 11.3 % PLATELET COUNT (test code = 341 Thousand/uL 777-3) MPV (test code = 776-5) 9.9 fL ABSOLUTE NEUTROPHILS (test 2684 cells/uL code = 751-8) ABSOLUTE BAND NEUTROPHILS DNR cells/uL (test code = 76720-5) ABSOLUTE METAMYELOCYTES (test DNR cells/uL code = 46340-9) ABSOLUTE MYELOCYTES (test DNR cells/uL code = 22085-0) ABSOLUTE PROMYELOCYTES (test DNR cells/uL code = 84807-0) ABSOLUTE LYMPHOCYTES (test 1476 cells/uL code = 731-0) ABSOLUTE MONOCYTES (test code 390 cells/uL = 742-7) ABSOLUTE EOSINOPHILS (test 132 cells/uL code = 711-2) ABSOLUTE BASOPHILS (test code 19 cells/uL = 704-7) ABSOLUTE BLASTS (test code = DNR cells/uL 04684-4) ABSOLUTE NUCLEATED RBC (test DNR cells/uL code = 61394-8) NEUTROPHILS (test code = 57.1 % 770-8) BAND NEUTROPHILS (test code = DNR % 764-1) METAMYELOCYTES (test code = DNR % 740-1) MYELOCYTES (test code = DNR % 749-2) PROMYELOCYTES (test code = DNR % 783-1) LYMPHOCYTES (test code = 31.4 % 736-9) REACTIVE LYMPHOCYTES (test DNR % code = 42999-0) MONOCYTES (test code = 8.3 % 5905-5) EOSINOPHILS (test code = 2.8 % 713-8) BASOPHILS (test code = 706-2) 0.4 % BLASTS (test code = 709-6) DNR % NUCLEATED RBC (test code = DNR /100WBC 23212-7) COMMENT(S) (test code = DNR 8251-1) LIPID PANEL (REFL)2020-10-06 00:00:00 Test Item Value Reference Range Interpretation Comments CHOLESTEROL, TOTAL (test code 138 mg/dL = 2093-3) HDL CHOLESTEROL (test code = 52 mg/dL 5-9) TRIGLYCERIDES (test code = 78 mg/dL 2571-8) LDL-CHOLESTEROL (test code = 70 mg/dL(calc) 90639-3) CHOL/HDLC RATIO (test code = 2.7 (calc) 9830-1) NON HDL CHOLESTEROL (test code 86 mg/dL(calc) = 94327-1) COMPREHENSIVE METABOLIC [id number] 00:00:00 Test Item Value Reference Range Interpretation Comments GLUCOSE (test code = 112 mg/dL 5-7) UREA NITROGEN (BUN) 14 mg/dL (test code = 3094-0) CREATININE (test code = 0.71 mg/dL 0-0) eGFR NON-AFR. KOSOVAN 123 mL/min/1.73m2 (test code = 18239-3) eGFR 143 mL/min/1.73m2 (test code = 14992-3) BUN/CREATININE RATIO NOT APPLICABLE (calc) (test code = 3097-3) SODIUM (test code = 141 mmol/L 2951-2) POTASSIUM (test code = 4.2 mmol/L 2823-3) CHLORIDE (test code = 108 mmol/L 2075-0) CARBON DIOXIDE (test 23 mmol/L code = 2027-9) CALCIUM (test code = 9.4 mg/dL 34458-7) PROTEIN, TOTAL (test 6.7 g/dL code = 2885-2) ALBUMIN (test code = 4.3 g/dL 1751-7) GLOBULIN (test code = 2.4 g/dL(calc) 07205-3) ALBUMIN/GLOBULIN RATIO 1.8 (calc) (test code = 1759-0) BILIRUBIN, TOTAL (test 0.3 mg/dL code = 1975-2) ALKALINE PHOSPHATASE 54 U/L (test code = 6768-6) AST (test code = 16 U/L 1920-8) ALT (test code = 17 U/L 1742-6) [id number] 00:00:00 Test Item Value Reference Range Interpretation Comments TSH (test code = 3016-3) 0.93 mIU/L HEMOGLOBIN [id number] 00:00:00 Test Item Value Reference Range Interpretation Comments HEMOGLOBIN A1c (test code = 4.8 %[facility] 4548-4) RPR (MONITOR) W/REFL [id number] 00:00:00 Test Item Value Reference Range Interpretation Comments RPR (MONITOR) W/REFL TITER (test NON-REACTIVE code = 29064-3) HIV 1/2 ANTIGEN/ANTIBODY,FOURTH GENERATION [id number] 00:00:00 Test Item Value Reference Range Interpretation Comments HIV AG/AB, 4TH GEN (test code = NON-REACTIVE 15734-9) CBC (INCLUDES DIFF/PLT)2020-10-06 00:00:00 Test Item Value Reference Range Interpretation Comments WHITE BLOOD CELL COUNT (test 4.7 Thousand/uL code = 6690-2) RED BLOOD CELL COUNT (test 4.51 Million/uL code = 789-8) HEMOGLOBIN (test code = 14.0 g/dL 718-7) HEMATOCRIT (test code = 42.4 % 4544-3) MCV (test code = 787-2) 94.0 fL MCH (test code = 785-6) 31.0 pg MCHC (test code = 786-4) 33.0 g/dL RDW (test code = 788-0) 11.3 % PLATELET COUNT (test code = 341 Thousand/uL 777-3) MPV (test code = 776-5) 9.9 fL ABSOLUTE NEUTROPHILS (test 2684 cells/uL code = 751-8) ABSOLUTE BAND NEUTROPHILS DNR cells/uL (test code = 35272-0) ABSOLUTE METAMYELOCYTES (test DNR cells/uL code = 36170-9) ABSOLUTE MYELOCYTES (test DNR cells/uL code = 29284-6) ABSOLUTE PROMYELOCYTES (test DNR cells/uL code = 81628-0) ABSOLUTE LYMPHOCYTES (test 1476 cells/uL code = 731-0) ABSOLUTE MONOCYTES (test code 390 cells/uL = 742-7) ABSOLUTE EOSINOPHILS (test 132 cells/uL code = 711-2) ABSOLUTE BASOPHILS (test code 19 cells/uL = 704-7) ABSOLUTE BLASTS (test code = DNR cells/uL 16676-6) ABSOLUTE NUCLEATED RBC (test DNR cells/uL code = 97529-2) NEUTROPHILS (test code = 57.1 % 770-8) BAND NEUTROPHILS (test code = DNR % 764-1) METAMYELOCYTES (test code = DNR % 740-1) MYELOCYTES (test code = DNR % 749-2) PROMYELOCYTES (test code = DNR % 783-1) LYMPHOCYTES (test code = 31.4 % 736-9) REACTIVE LYMPHOCYTES (test DNR % code = 50498-7) MONOCYTES (test code = 8.3 % 5905-5) EOSINOPHILS (test code = 2.8 % 713-8) BASOPHILS (test code = 706-2) 0.4 % BLASTS (test code = 709-6) DNR % NUCLEATED RBC (test code = DNR /100WBC 81160-2) COMMENT(S) (test code = DNR 8251-1) LIPID PANEL (REFL)2020-10-06 00:00:00 Test Item Value Reference Range Interpretation Comments CHOLESTEROL, TOTAL (test code 138 mg/dL = 2093-3) HDL CHOLESTEROL (test code = 52 mg/dL 2085-9) TRIGLYCERIDES (test code = 78 mg/dL 2571-8) LDL-CHOLESTEROL (test code = 70 mg/dL(calc) 28227-0) CHOL/HDLC RATIO (test code = 2.7 (calc) 9830-1) NON HDL CHOLESTEROL (test code 86 mg/dL(calc) = 21161-8) COMPREHENSIVE METABOLIC [id number] 00:00:00 Test Item Value Reference Range Interpretation Comments GLUCOSE (test code = 112 mg/dL 2345-7) UREA NITROGEN (BUN) 14 mg/dL (test code = 3094-0) CREATININE (test code = 0.71 mg/dL 2160-0) eGFR NON-AFR. KOSOVAN 123 mL/min/1.73m2 (test code = 93431-6) eGFR 143 mL/min/1.73m2 (test code = 36085-1) BUN/CREATININE RATIO NOT APPLICABLE (calc) (test code = 3097-3) SODIUM (test code = 141 mmol/L 2951-2) POTASSIUM (test code = 4.2 mmol/L 2823-3) CHLORIDE (test code = 108 mmol/L 2075-0) CARBON DIOXIDE (test 23 mmol/L code = 2027-9) CALCIUM (test code = 9.4 mg/dL 20398-7) PROTEIN, TOTAL (test 6.7 g/dL code = 2885-2) ALBUMIN (test code = 4.3 g/dL 1751-7) GLOBULIN (test code = 2.4 g/dL(calc) 45463-0) ALBUMIN/GLOBULIN RATIO 1.8 (calc) (test code = 1759-0) BILIRUBIN, TOTAL (test 0.3 mg/dL code = 1975-2) ALKALINE PHOSPHATASE 54 U/L (test code = 6768-6) AST (test code = 16 U/L 1920-8) ALT (test code = 17 U/L 1742-6) [id number] 00:00:00 Test Item Value Reference Range Interpretation Comments TSH (test code = 3016-3) 0.93 mIU/L HEMOGLOBIN [id number] 00:00:00 Test Item Value Reference Range Interpretation Comments HEMOGLOBIN A1c (test code = 4.8 %[facility] 4548-4) RPR (MONITOR) W/REFL [id number] 00:00:00 Test Item Value Reference Range Interpretation Comments RPR (MONITOR) W/REFL TITER (test NON-REACTIVE code = 65189-1) HIV 1/2 ANTIGEN/ANTIBODY,FOURTH GENERATION [id number] 00:00:00 Test Item Value Reference Range Interpretation Comments HIV AG/AB, 4TH GEN (test code = NON-REACTIVE 90450-6) CBC (INCLUDES DIFF/PLT)2020-10-06 00:00:00 Test Item Value Reference Range Interpretation Comments WHITE BLOOD CELL COUNT (test 4.7 Thousand/uL code = 6690-2) RED BLOOD CELL COUNT (test 4.51 Million/uL code = 789-8) HEMOGLOBIN (test code = 14.0 g/dL 718-7) HEMATOCRIT (test code = 42.4 % 4544-3) MCV (test code = 787-2) 94.0 fL MCH (test code = 785-6) 31.0 pg MCHC (test code = 786-4) 33.0 g/dL RDW (test code = 788-0) 11.3 % PLATELET COUNT (test code = 341 Thousand/uL 777-3) MPV (test code = 776-5) 9.9 fL ABSOLUTE NEUTROPHILS (test 2684 cells/uL code = 751-8) ABSOLUTE BAND NEUTROPHILS DNR cells/uL (test code = 69996-0) ABSOLUTE METAMYELOCYTES (test DNR cells/uL code = 15903-4) ABSOLUTE MYELOCYTES (test DNR cells/uL code = 17350-5) ABSOLUTE PROMYELOCYTES (test DNR cells/uL code = 60041-3) ABSOLUTE LYMPHOCYTES (test 1476 cells/uL code = 731-0) ABSOLUTE MONOCYTES (test code 390 cells/uL = 742-7) ABSOLUTE EOSINOPHILS (test 132 cells/uL code = 711-2) ABSOLUTE BASOPHILS (test code 19 cells/uL = 704-7) ABSOLUTE BLASTS (test code = DNR cells/uL 22441-0) ABSOLUTE NUCLEATED RBC (test DNR cells/uL code = 39939-5) NEUTROPHILS (test code = 57.1 % 770-8) BAND NEUTROPHILS (test code = DNR % 764-1) METAMYELOCYTES (test code = DNR % 740-1) MYELOCYTES (test code = DNR % 749-2) PROMYELOCYTES (test code = DNR % 783-1) LYMPHOCYTES (test code = 31.4 % 736-9) REACTIVE LYMPHOCYTES (test DNR % code = 59018-1) MONOCYTES (test code = 8.3 % 5905-5) EOSINOPHILS (test code = 2.8 % 713-8) BASOPHILS (test code = 706-2) 0.4 % BLASTS (test code = 709-6) DNR % NUCLEATED RBC (test code = DNR /100WBC 27315-6) COMMENT(S) (test code = DNR 8251-1) LIPID PANEL (REFL)2020-10-06 00:00:00 Test Item Value Reference Range Interpretation Comments CHOLESTEROL, TOTAL (test code 138 mg/dL = 2093-3) HDL CHOLESTEROL (test code = 52 mg/dL 5-9) TRIGLYCERIDES (test code = 78 mg/dL 2571-8) LDL-CHOLESTEROL (test code = 70 mg/dL(calc) 53963-8) CHOL/HDLC RATIO (test code = 2.7 (calc) 9830-1) NON HDL CHOLESTEROL (test code 86 mg/dL(calc) = 39250-8) COMPREHENSIVE METABOLIC [id number] 00:00:00 Test Item Value Reference Range Interpretation Comments GLUCOSE (test code = 112 mg/dL 2345-7) UREA NITROGEN (BUN) 14 mg/dL (test code = 3094-0) CREATININE (test code = 0.71 mg/dL 2160-0) eGFR NON-AFR. KOSOVAN 123 mL/min/1.73m2 (test code = 46177-3) eGFR 143 mL/min/1.73m2 (test code = 82404-7) BUN/CREATININE RATIO NOT APPLICABLE (calc) (test code = 3097-3) SODIUM (test code = 141 mmol/L 2951-2) POTASSIUM (test code = 4.2 mmol/L 2823-3) CHLORIDE (test code = 108 mmol/L 5-0) CARBON DIOXIDE (test 23 mmol/L code = 2027-9) CALCIUM (test code = 9.4 mg/dL 74463-1) PROTEIN, TOTAL (test 6.7 g/dL code = 2885-2) ALBUMIN (test code = 4.3 g/dL 1751-7) GLOBULIN (test code = 2.4 g/dL(calc) 14626-1) ALBUMIN/GLOBULIN RATIO 1.8 (calc) (test code = 1759-0) BILIRUBIN, TOTAL (test 0.3 mg/dL code = 1975-2) ALKALINE PHOSPHATASE 54 U/L (test code = 6768-6) AST (test code = 16 U/L 1920-8) ALT (test code = 17 U/L 1742-6) [id number] 00:00:00 Test Item Value Reference Range Interpretation Comments TSH (test code = 3016-3) 0.93 mIU/L HEMOGLOBIN [id number] 00:00:00 Test Item Value Reference Range Interpretation Comments H[facility] A1c (test [facility] = 4.8 [facility] RPR (MONITOR) W/REFL [id number] 00:00:00 Test Item Value Reference Range Interpretation Comments RPR (MONITOR) W/REFL TITER (test NON-REACTIVE code = 13934-8) BV/VAGINITIS PANEL DNA [id number] 00:00:00 Test Item Value Reference Range Interpretation Comments TRICHOMONAS: (test code = NOT DETECTED 6568-0) GARDNERELLA: (test code = DETECTED 6410-5) SUZE: (test code = 28210-9) DETECTED BV/VAGINITIS PANEL DNA [id number] 00:00:00 Test Item Value Reference Range Interpretation Comments TRICHOMONAS: (test code = NOT DETECTED 6568-0) GARDNERELLA: (test code = DETECTED 6410-5) SUZE: (test code = 89807-6) DETECTED BV/VAGINITIS PANEL DNA [id number] 00:00:00 Test Item Value Reference Range Interpretation Comments TRICHOMONAS: (test code = NOT DETECTED 6568-0) GARDNERELLA: (test code = DETECTED 6410-5) SUZE: (test code = 82345-7) DETECTED BV/VAGINITIS PANEL DNA [id number] 00:00:00 Test Item Value Reference Range Interpretation Comments TRICHOMONAS: (test code = NOT DETECTED 6568-0) GARDNERELLA: (test code = DETECTED 6410-5) SUZE: (test code = 90019-4) NOT DETECTED BV/VAGINITIS PANEL DNA [id number] 00:00:00 Test Item Value Reference Range Interpretation Comments TRICHOMONAS: (test code = NOT DETECTED 6568-0) GARDNERELLA: (test code = DETECTED 6410-5) SUZE: (test code = 09402-4) NOT DETECTED BV/VAGINITIS PANEL DNA [id number] 00:00:00 Test Item Value Reference Range Interpretation Comments TRICHOMONAS: (test code = NOT DETECTED 6568-0) GARDNERELLA: (test code = DETECTED 6410-5) SUZE: (test code = 55645-2) NOT DETECTED CHLAMYDIA TRACHOMATIS RNA, [id number] 00:00:00 Test Item Value Reference Range Interpretation Comments CHLAMYDIA TRACHOMATIS RNA, TMA, NOT DETECTED UROGENITAL (test code = 56134-6) COMMENT (test code = ) HEPATITIS PANEL, [id number] 00:00:00 Test Item Value Reference Range Interpretation Comments HEPATITIS A AB, TOTAL (test code REACTIVE = 13614-8) HEPATITIS B SURFACE ANTIBODY QL NON-REACTIVE (test code = 11989-3) HEPATITIS B SURFACE ANTIGEN NON-REACTIVE (test code = 5196-1) CONFIRMATION (test code = DNR 7905-3) HEPATITIS B CORE AB TOTAL (test NON-REACTIVE code = 22618-7) HEPATITIS C ANTIBODY (test code NON-REACTIVE = 49140-7) SIGNAL TO CUT-OFF (test code = 0.02 52037-2) NEISSERIA GONORRHOEAE RNA, [id number] 00:00:00 Test Item Value Reference Range Interpretation Comments NEISSERIA GONORRHOEAE RNA, TMA, NOT DETECTED UROGENITAL (test code = 48706-0) COMMENT (test code = ) RPR (MONITOR) W/REFL [id number] 00:00:00 Test Item Value Reference Range Interpretation Comments RPR (MONITOR) W/REFL TITER (test NON-REACTIVE code = 50676-3) CHLAMYDIA TRACHOMATIS RNA, [id number] 00:00:00 Test Item Value Reference Range Interpretation Comments CHLAMYDIA TRACHOMATIS RNA, TMA, NOT DETECTED UROGENITAL (test code = 80027-2) COMMENT (test code = ) HIV 1/2 ANTIGEN/ANTIBODY,FOURTH GENERATION [id number] 00:00:00 Test Item Value Reference Range Interpretation Comments HIV AG/AB, 4TH GEN (test code = NON-REACTIVE 79253-5) NEISSERIA GONORRHOEAE RNA, [id number] 00:00:00 Test Item Value Reference Range Interpretation Comments NEISSERIA GONORRHOEAE RNA, TMA, NOT DETECTED UROGENITAL (test code = 85907-5) COMMENT (test code = ) HEPATITIS PANEL, [id number] 00:00:00 Test Item Value Reference Range Interpretation Comments HEPATITIS A AB, TOTAL (test code REACTIVE = 19549-1) HEPATITIS B SURFACE ANTIBODY QL NON-REACTIVE (test code = 20735-2) HEPATITIS B SURFACE ANTIGEN NON-REACTIVE (test code = 5196-1) CONFIRMATION (test code = DNR 7905-3) HEPATITIS B CORE AB TOTAL (test NON-REACTIVE code = 60368-2) HEPATITIS C ANTIBODY (test code NON-REACTIVE = 01278-1) SIGNAL TO CUT-OFF (test code = 0.02 02015-4) RPR (MONITOR) W/REFL [id number] 00:00:00 Test Item Value Reference Range Interpretation Comments RPR (MONITOR) W/REFL TITER (test NON-REACTIVE code = 46753-9) CHLAMYDIA TRACHOMATIS RNA, [id number] 00:00:00 Test Item Value Reference Range Interpretation Comments CHLAMYDIA TRACHOMATIS RNA, TMA, NOT DETECTED UROGENITAL (test code = 64581-6) COMMENT (test code = ) HIV 1/2 ANTIGEN/ANTIBODY,FOURTH GENERATION [id number] 00:00:00 Test Item Value Reference Range Interpretation Comments HIV AG/AB, 4TH GEN (test code = NON-REACTIVE 15058-8) NEISSERIA GONORRHOEAE RNA, [id number] 00:00:00 Test Item Value Reference Range Interpretation Comments NEISSERIA GONORRHOEAE RNA, TMA, NOT DETECTED UROGENITAL (test code = 98260-0) COMMENT (test code = ) HEPATITIS PANEL, [id number] 00:00:00 Test Item Value Reference Range Interpretation Comments HEPATITIS A AB, TOTAL (test code REACTIVE = 00387-9) HEPATITIS B SURFACE ANTIBODY QL NON-REACTIVE (test code = 64829-4) HEPATITIS B SURFACE ANTIGEN NON-REACTIVE (test code = 5196-1) CONFIRMATION (test code = DNR 7905-3) HEPATITIS B CORE AB TOTAL (test NON-REACTIVE code = 08303-0) HEPATITIS C ANTIBODY (test code NON-REACTIVE = 71954-1) SIGNAL TO CUT-OFF (test code = 0.02 54149-3) RPR (MONITOR) W/REFL [id number] 00:00:00 Test Item Value Reference Range Interpretation Comments RPR (MONITOR) W/REFL TITER (test NON-REACTIVE code = 79934-7) HIV 1/2 ANTIGEN/ANTIBODY,FOURTH GENERATION [id number] 00:00:00 Test Item Value Reference Range Interpretation Comments HIV AG/AB, 4TH GEN (test code = NON-REACTIVE 07296-6) GC AND CHLAMYDIA, AMPLIFIED, [id number] 00:00:00 Test Item Value Reference Range Interpretation Comments GONORRHEA, TMA (test code = 93954) NEGATIVE CHLAMYDIA, TMA (test code = 80383) NEGATIVE GC AND CHLAMYDIA, AMPLIFIED, [id number] 00:00:00 Test Item Value Reference Range Interpretation Comments GONORRHEA, TMA (test code = 11652) NEGATIVE CHLAMYDIA, TMA (test code = 06080) NEGATIVE GC AND CHLAMYDIA, AMPLIFIED, [id number] 00:00:00 Test Item Value Reference Range Interpretation Comments GONORRHEA, TMA (test code = 42295) NEGATIVE CHLAMYDIA, TMA (test code = 52916) NEGATIVE GC AND CHLAMYDIA, AMPLIFIED, [id number] 00:00:00 Test Item Value Reference Range Interpretation Comments GONORRHEA, TMA (test code = 31323) NEGATIVE CHLAMYDIA, TMA (test code = 35924) NEGATIVE GC AND CHLAMYDIA, AMPLIFIED, [id number] 00:00:00 Test Item Value Reference Range Interpretation Comments GONORRHEA, TMA (test code = 59191) NEGATIVE CHLAMYDIA, TMA (test code = 22552) NEGATIVE GC AND CHLAMYDIA, AMPLIFIED, [id number] 00:00:00 Test Item Value Reference Range Interpretation Comments GONORRHEA, TMA (test code = 11746) NEGATIVE CHLAMYDIA, TMA (test code = 77308) NEGATIVE CT/NG, TMA, SIMPLESWAB [ADDED]2020-02-13 00:00:00 Test Item Value Reference Range Interpretation Comments CHLAMYDIA, TMA (test code TEST NOT PERFORMED = 26425) GONORRHEA, TMA (test code TEST NOT PERFORMED = 99685) CT/NG, TMA, SIMPLESWAB [ADDED]2020-02-13 00:00:00 Test Item Value Reference Range Interpretation Comments CHLAMYDIA, TMA (test code TEST NOT PERFORMED = 42418) GONORRHEA, TMA (test code TEST NOT PERFORMED = 13877) CT/NG, TMA, SIMPLESWAB [ADDED]2020-02-13 00:00:00 Test Item Value Reference Range Interpretation Comments CHLAMYDIA, TMA (test code TEST NOT PERFORMED = 99162) GONORRHEA, TMA (test code TEST NOT PERFORMED = 29350) CT/NG, TMA, SIMPLESWAB [ADDED]2020-02-13 00:00:00 Test Item Value Reference Range Interpretation Comments CHLAMYDIA, TMA (test code TEST NOT PERFORMED = 58239) GONORRHEA, TMA (test code TEST NOT PERFORMED = 31011) CT/NG, TMA, SIMPLESWAB [ADDED]2020-02-13 00:00:00 Test Item Value Reference Range Interpretation Comments CHLAMYDIA, TMA (test code TEST NOT PERFORMED = 99980) GONORRHEA, TMA (test code TEST NOT PERFORMED = 61098) CT/NG, TMA, SIMPLESWAB [ADDED]2020-02-13 00:00:00 Test Item Value Reference Range Interpretation Comments CHLAMYDIA, TMA (test code TEST NOT PERFORMED = 58430) GONORRHEA, TMA (test code TEST NOT PERFORMED = 05123) GC AND CHLAMYDIA, AMPLIFIED, [id number] 00:00:00 Test Item Value Reference Range Interpretation Comments GONORRHEA, TMA (test code TEST NOT PERFORMED = 56062) CHLAMYDIA, TMA (test code TEST NOT PERFORMED = 52762) GC AND CHLAMYDIA, AMPLIFIED, [id number] 00:00:00 Test Item Value Reference Range Interpretation Comments GONORRHEA, TMA (test code TEST NOT PERFORMED = 68650) CHLAMYDIA, TMA (test code TEST NOT PERFORMED = 27145) GC AND CHLAMYDIA AMPLIFIED, [id number] 00:00:00 Test Item Value Reference Range Interpretation Comments CHLAMYDIA, TMA (test code TEST NOT PERFORMED = 29963) GONORRHEA, TMA (test code TEST NOT PERFORMED = 05382) GC AND CHLAMYDIA AMPLIFIED, [id number] 00:00:00 Test Item Value Reference Range Interpretation Comments CHLAMYDIA, TMA (test code TEST NOT PERFORMED = 19466) GONORRHEA, TMA (test code TEST NOT PERFORMED = 94048) GC AND CHLAMYDIA, AMPLIFIED, [id number] 00:00:00 Test Item Value Reference Range Interpretation Comments GONORRHEA, TMA (test code TEST NOT PERFORMED = 29522) CHLAMYDIA, TMA (test code TEST NOT PERFORMED = 22148) GC AND CHLAMYDIA, AMPLIFIED, [id number] 00:00:00 Test Item Value Reference Range Interpretation Comments GONORRHEA, TMA (test code TEST NOT PERFORMED = 51712) CHLAMYDIA, TMA (test code TEST NOT PERFORMED = 98768) GC AND CHLAMYDIA AMPLIFIED, [id number] 00:00:00 Test Item Value Reference Range Interpretation Comments CHLAMYDIA, TMA (test code TEST NOT PERFORMED = 94525) GONORRHEA, TMA (test code TEST NOT PERFORMED = 96096) GC AND CHLAMYDIA AMPLIFIED, [id number] 00:00:00 Test Item Value Reference Range Interpretation Comments CHLAMYDIA, TMA (test code TEST NOT PERFORMED = 45403) GONORRHEA, TMA (test code TEST NOT PERFORMED = 18030) GC AND CHLAMYDIA, AMPLIFIED, [id number] 00:00:00 Test Item Value Reference Range Interpretation Comments GONORRHEA, TMA (test code TEST NOT PERFORMED = 00855) CHLAMYDIA, TMA (test code TEST NOT PERFORMED = 91312) GC AND CHLAMYDIA, AMPLIFIED, [id number] 00:00:00 Test Item Value Reference Range Interpretation Comments GONORRHEA, TMA (test code TEST NOT PERFORMED = 05197) CHLAMYDIA, TMA (test code TEST NOT PERFORMED = 59599) GC AND CHLAMYDIA AMPLIFIED, [id number] 00:00:00 Test Item Value Reference Range Interpretation Comments CHLAMYDIA, TMA (test code TEST NOT PERFORMED = 39118) GONORRHEA, TMA (test code TEST NOT PERFORMED = 12603) GC AND CHLAMYDIA AMPLIFIED, [id number] 00:00:00 Test Item Value Reference Range Interpretation Comments CHLAMYDIA, TMA (test code TEST NOT PERFORMED = 53363) GONORRHEA, TMA (test code TEST NOT PERFORMED = 21047) VAGINAL PATHOGENS DNA [id number] 00:00:00 Test Item Value Reference Range Interpretation Comments SUZE SPECIES (test code = ) NEGATIVE G. VAGINALIS (test code = 54637) NEGATIVE T. VAGINALIS (test code = 77367) NEGATIVE VAGINAL PATHOGENS DNA [id number] 00:00:00 Test Item Value Reference Range Interpretation Comments SUZE SPECIES (test code = 17504) NEGATIVE G. VAGINALIS (test code = 80022) NEGATIVE T. VAGINALIS (test code = 63670) NEGATIVE VAGINAL PATHOGENS DNA [id number] 00:00:00 Test Item Value Reference Range Interpretation Comments SUZE SPECIES (test code = 73595) NEGATIVE G. VAGINALIS (test code = 25092) NEGATIVE T. VAGINALIS (test code = 79718) NEGATIVE VAGINAL PATHOGENS DNA [id number] 00:00:00 Test Item Value Reference Range Interpretation Comments SUZE SPECIES (test code = 88453) NEGATIVE G. VAGINALIS (test code = 21347) NEGATIVE T. VAGINALIS (test code = 45034) NEGATIVE VAGINAL PATHOGENS DNA [id number] 00:00:00 Test Item Value Reference Range Interpretation Comments SUZE SPECIES (test code = 21119) NEGATIVE G. VAGINALIS (test code = 11711) NEGATIVE T. VAGINALIS (test code = 59995) NEGATIVE VAGINAL PATHOGENS DNA [id number] 00:00:00 Test Item Value Reference Range Interpretation Comments SUZE SPECIES (test code = ) NEGATIVE G. VAGINALIS (test code = 85245) NEGATIVE T. VAGINALIS (test code = 70712) NEGATIVE SARS-CoV-2 (COVID-19) by RT-PCR (HIGH RISK)2019-12-21 00:00:00 Test Item Value Reference Range Interpretation Comments SARS-CoV-2 INTERPRETATION NEGATIVE (test code = 57199) SOURCE (test code = 14026) NASOPHARYNGEAL SARS-CoV-2 (COVID-19) by RT-PCR (HIGH RISK)2019-12-21 00:00:00 Test Item Value Reference Range Interpretation Comments SARS-CoV-2 INTERPRETATION NEGATIVE (test code = 77967) SOURCE (test code = 92459) NASOPHARYNGEAL SARS-CoV-2 (COVID-19) by RT-PCR (HIGH RISK)2019-12-21 00:00:00 Test Item Value Reference Range Interpretation Comments SARS-CoV-2 INTERPRETATION NEGATIVE (test code = 94683) SOURCE (test code = 37262) NASOPHARYNGEAL SARS-CoV-2 (COVID-19) by RT-PCR (HIGH RISK)2019-12-21 00:00:00 Test Item Value Reference Range Interpretation Comments SARS-CoV-2 INTERPRETATION NEGATIVE (test code = 73520) SOURCE (test code = 81385) NASOPHARYNGEAL SARS-CoV-2 (COVID-19) by RT-PCR (HIGH RISK)2019-12-21 00:00:00 Test Item Value Reference Range Interpretation Comments SARS-CoV-2 INTERPRETATION NEGATIVE (test code = 07456) SOURCE (test code = 13328) NASOPHARYNGEAL SARS-CoV-2 (COVID-19) by RT-PCR (HIGH RISK)2019-12-21 00:00:00 Test Item Value Reference Range Interpretation Comments SARS-CoV-2 INTERPRETATION NEGATIVE (test code = 24819) SOURCE (test code = 38023) NASOPHARYNGEAL HEMOGLOBIN [id number] 00:00:00 Test Item Value Reference Range Interpretation Comments HEMOGLOBIN A1c (test code = 5.0 %[facility] 4548-4) CBC (INCLUDES DIFF/PLT)2019-11-06 00:00:00 Test Item Value Reference Range Interpretation Comments WHITE BLOOD CELL COUNT (test 8.4 Thousand/uL code = 6690-2) RED BLOOD CELL COUNT (test 4.42 Million/uL code = 789-8) HEMOGLOBIN (test code = 14.0 g/dL 718-7) HEMATOCRIT (test code = 41.2 % 4544-3) MCV (test code = 787-2) 93.2 fL MCH (test code = 785-6) 31.7 pg MCHC (test code = 786-4) 34.0 g/dL RDW (test code = 788-0) 11.6 % PLATELET COUNT (test code = 310 Thousand/uL 777-3) MPV (test code = 776-5) 10.0 fL ABSOLUTE NEUTROPHILS (test 5300 cells/uL code = 751-8) ABSOLUTE BAND NEUTROPHILS DNR cells/uL (test code = 45820-6) ABSOLUTE METAMYELOCYTES (test DNR cells/uL code = 34850-9) ABSOLUTE MYELOCYTES (test DNR cells/uL code = 04466-5) ABSOLUTE PROMYELOCYTES (test DNR cells/uL code = 85102-9) ABSOLUTE LYMPHOCYTES (test 2268 cells/uL code = 731-0) ABSOLUTE MONOCYTES (test code 622 cells/uL = 742-7) ABSOLUTE EOSINOPHILS (test 160 cells/uL code = 711-2) ABSOLUTE BASOPHILS (test code 50 cells/uL = 704-7) ABSOLUTE BLASTS (test code = DNR cells/uL 97652-6) ABSOLUTE NUCLEATED RBC (test DNR cells/uL code = 17532-0) NEUTROPHILS (test code = 63.1 % 770-8) BAND NEUTROPHILS (test code = DNR % 764-1) METAMYELOCYTES (test code = DNR % 740-1) MYELOCYTES (test code = DNR % 749-2) PROMYELOCYTES (test code = DNR % 783-1) LYMPHOCYTES (test code = 27.0 % 736-9) REACTIVE LYMPHOCYTES (test DNR % code = 59474-3) MONOCYTES (test code = 7.4 % 5905-5) EOSINOPHILS (test code = 1.9 % 713-8) BASOPHILS (test code = 706-2) 0.6 % BLASTS (test code = 709-6) DNR % NUCLEATED RBC (test code = DNR /100WBC 54923-0) COMMENT(S) (test code = DNR 8251-1) COMPREHENSIVE METABOLIC [id number] 00:00:00 Test Item Value Reference Range Interpretation Comments GLUCOSE (test code = 113 mg/dL 2345-7) UREA NITROGEN (BUN) 12 mg/dL (test code = 3094-0) CREATININE (test code = 0.62 mg/dL 2160-0) eGFR NON-AFR. KOSOVAN 131 mL/min/1.73m2 (test code = 04884-2) eGFR 152 mL/min/1.73m2 (test code = 58692-4) BUN/CREATININE RATIO NOT APPLICABLE (calc) (test code = 3097-3) SODIUM (test code = 138 mmol/L 2951-2) POTASSIUM (test code = 3.9 mmol/L 2823-3) CHLORIDE (test code = 105 mmol/L 2075-0) CARBON DIOXIDE (test 26 mmol/L code = 8-9) CALCIUM (test code = 9.5 mg/dL 52202-1) PROTEIN, TOTAL (test 7.1 g/dL code = 2885-2) ALBUMIN (test code = 4.7 g/dL 1751-7) GLOBULIN (test code = 2.4 g/dL(calc) 50852-5) ALBUMIN/GLOBULIN RATIO 2.0 (calc) (test code = 1759-0) BILIRUBIN, TOTAL (test 1.1 mg/dL code = 1975-2) ALKALINE PHOSPHATASE 53 U/L (test code = 6768-6) AST (test code = 13 U/L 1920-8) ALT (test code = 10 U/L 1742-6) LIPID [id number] 00:00:00 Test Item Value Reference Range Interpretation Comments CHOLESTEROL, TOTAL (test code 141 mg/dL = 2093-3) HDL CHOLESTEROL (test code = 54 mg/dL 2085-9) TRIGLYCERIDES (test code = 62 mg/dL 2571-8) LDL-CHOLESTEROL (test code = 73 mg/dL(calc) 01508-2) CHOL/HDLC RATIO (test code = 2.6 (calc) 9830-1) NON HDL CHOLESTEROL (test code 87 mg/dL(calc) = 50061-1) HEMOGLOBIN [id number] 00:00:00 Test Item Value Reference Range Interpretation Comments HEMOGLOBIN A1c (test code = 5.0 [facility] CBC (INCLUDES DIFF/PLT)[id number] 00:00:00 Test Item Value Reference Range Interpretation Comments WHITE BLOOD CELL COUNT (test 8.4 Thousand/uL code = 6690-2) RED BLOOD CELL COUNT (test 4.42 Million/uL code = 789-8) HEMOGLOBIN (test code = 14.0 g/dL 718-7) HEMATOCRIT (test code = 41.2 % 4544-3) MCV (test code = 787-2) 93.2 fL MCH (test code = 785-6) 31.7 pg MCHC (test code = 786-4) 34.0 g/dL RDW (test code = 788-0) 11.6 % PLATELET COUNT (test code = 310 Thousand/uL 777-3) MPV (test code = 776-5) 10.0 fL ABSOLUTE NEUTROPHILS (test 5300 cells/uL code = 751-8) ABSOLUTE BAND NEUTROPHILS DNR cells/uL (test code = 73387-9) ABSOLUTE METAMYELOCYTES (test DNR cells/uL code = 90331-2) ABSOLUTE MYELOCYTES (test DNR cells/uL code = 31405-6) ABSOLUTE PROMYELOCYTES (test DNR cells/uL code = 56786-3) ABSOLUTE LYMPHOCYTES (test 2268 cells/uL code = 731-0) ABSOLUTE MONOCYTES (test code 622 cells/uL = 742-7) ABSOLUTE EOSINOPHILS (test 160 cells/uL code = 711-2) ABSOLUTE BASOPHILS (test code 50 cells/uL = 704-7) ABSOLUTE BLASTS (test code = DNR cells/uL 23930-4) ABSOLUTE NUCLEATED RBC (test DNR cells/uL code = 99063-8) NEUTROPHILS (test code = 63.1 % 770-8) BAND NEUTROPHILS (test code = DNR % 764-1) METAMYELOCYTES (test code = DNR % 740-1) MYELOCYTES (test code = DNR % 749-2) PROMYELOCYTES (test code = DNR % 783-1) LYMPHOCYTES (test code = 27.0 % 736-9) REACTIVE LYMPHOCYTES (test DNR % code = 16667-9) MONOCYTES (test code = 7.4 % 5905-5) EOSINOPHILS (test code = 1.9 % 713-8) BASOPHILS (test code = 706-2) 0.6 % BLASTS (test code = 709-6) DNR % NUCLEATED RBC (test code = DNR /100WBC 08687-5) COMMENT(S) (test code = DNR 8251-1) COMPREHENSIVE METABOLIC [id number] 00:00:00 Test Item Value Reference Range Interpretation Comments GLUCOSE (test code = 113 mg/dL 2345-7) UREA NITROGEN (BUN) 12 mg/dL (test code = 3094-0) CREATININE (test code = 0.62 mg/dL 2160-0) eGFR NON-AFR. KOSOVAN 131 mL/min/1.73m2 (test code = 57116-8) eGFR 152 mL/min/1.73m2 (test code = 15469-8) BUN/CREATININE RATIO NOT APPLICABLE (calc) (test code = 3097-3) SODIUM (test code = 138 mmol/L 2951-2) POTASSIUM (test code = 3.9 mmol/L 2823-3) CHLORIDE (test code = 105 mmol/L 2075-0) CARBON DIOXIDE (test 26 mmol/L code = 8-9) CALCIUM (test code = 9.5 mg/dL 06278-1) PROTEIN, TOTAL (test 7.1 g/dL code = 2885-2) ALBUMIN (test code = 4.7 g/dL 1751-7) GLOBULIN (test code = 2.4 g/dL(calc) 59197-3) ALBUMIN/GLOBULIN RATIO 2.0 (calc) (test code = 1759-0) BILIRUBIN, TOTAL (test 1.1 mg/dL code = 1975-2) ALKALINE PHOSPHATASE 53 U/L (test code = 6768-6) AST (test code = 13 U/L 1920-8) ALT (test code = 10 U/L 1742-6) LIPID [id number] 00:00:00 Test Item Value Reference Range Interpretation Comments CHOLESTEROL, TOTAL (test code 141 mg/dL = 2093-3) HDL CHOLESTEROL (test code = 54 mg/dL 5-9) TRIGLYCERIDES (test code = 62 mg/dL 2571-8) LDL-CHOLESTEROL (test code = 73 mg/dL(calc) 94504-3) CHOL/HDLC RATIO (test code = 2.6 (calc) 9830-1) NON HDL CHOLESTEROL (test code 87 mg/dL(calc) = 00691-8) HEMOGLOBIN [id number] 00:00:00 Test Item Value Reference Range Interpretation Comments HEMOGLOBIN A1c (test code = 5.0 [facility] CBC (INCLUDES DIFF/PLT)[id number] 00:00:00 Test Item Value Reference Range Interpretation Comments WHITE BLOOD CELL COUNT (test 8.4 Thousand/uL code = 6690-2) RED BLOOD CELL COUNT (test 4.42 Million/uL code = 789-8) HEMOGLOBIN (test code = 14.0 g/dL 718-7) HEMATOCRIT (test code = 41.2 % 4544-3) MCV (test code = 787-2) 93.2 fL MCH (test code = 785-6) 31.7 pg MCHC (test code = 786-4) 34.0 g/dL RDW (test code = 788-0) 11.6 % PLATELET COUNT (test code = 310 Thousand/uL 777-3) MPV (test code = 776-5) 10.0 fL ABSOLUTE NEUTROPHILS (test 5300 cells/uL code = 751-8) ABSOLUTE BAND NEUTROPHILS DNR cells/uL (test code = 81892-3) ABSOLUTE METAMYELOCYTES (test DNR cells/uL code = 55229-5) ABSOLUTE MYELOCYTES (test DNR cells/uL code = 79404-7) ABSOLUTE PROMYELOCYTES (test DNR cells/uL code = 64114-8) ABSOLUTE LYMPHOCYTES (test 2268 cells/uL code = 731-0) ABSOLUTE MONOCYTES (test code 622 cells/uL = 742-7) ABSOLUTE EOSINOPHILS (test 160 cells/uL code = 711-2) ABSOLUTE BASOPHILS (test code 50 cells/uL = 704-7) ABSOLUTE BLASTS (test code = DNR cells/uL 21294-8) ABSOLUTE NUCLEATED RBC (test DNR cells/uL code = 99595-8) NEUTROPHILS (test code = 63.1 % 770-8) BAND NEUTROPHILS (test code = DNR % 764-1) METAMYELOCYTES (test code = DNR % 740-1) MYELOCYTES (test code = DNR % 749-2) PROMYELOCYTES (test code = DNR % 783-1) LYMPHOCYTES (test code = 27.0 % 736-9) REACTIVE LYMPHOCYTES (test DNR % code = 24248-6) MONOCYTES (test code = 7.4 % 5905-5) EOSINOPHILS (test code = 1.9 % 713-8) BASOPHILS (test code = 706-2) 0.6 % BLASTS (test code = 709-6) DNR % NUCLEATED RBC (test code = DNR /100WBC 84170-3) COMMENT(S) (test code = DNR 8251-1) COMPREHENSIVE METABOLIC [id number] 00:00:00 Test Item Value Reference Range Interpretation Comments GLUCOSE (test code = 113 mg/dL 2345-7) UREA NITROGEN (BUN) 12 mg/dL (test code = 3094-0) CREATININE (test code = 0.62 mg/dL 2160-0) eGFR NON-AFR. KOSOVAN 131 mL/min/1.73m2 (test code = 42605-5) eGFR 152 mL/min/1.73m2 (test code = 73152-0) BUN/CREATININE RATIO NOT APPLICABLE (calc) (test code = 3097-3) SODIUM (test code = 138 mmol/L 2951-2) POTASSIUM (test code = 3.9 mmol/L 2823-3) CHLORIDE (test code = 105 mmol/L 2075-0) CARBON DIOXIDE (test 26 mmol/L code = 8-9) CALCIUM (test code = 9.5 mg/dL 75924-7) PROTEIN, TOTAL (test 7.1 g/dL code = 2885-2) ALBUMIN (test code = 4.7 g/dL 1751-7) GLOBULIN (test code = 2.4 g/dL(calc) 40097-9) ALBUMIN/GLOBULIN RATIO 2.0 (calc) (test code = 1759-0) BILIRUBIN, TOTAL (test 1.1 mg/dL code = 1974-2) ALKALINE PHOSPHATASE 53 U/L (test code = 6768-6) AST (test code = 13 U/L 1920-8) ALT (test code = 10 U/L 1742-6) LIPID [id number] 00:00:00 Test Item Value Reference Range Interpretation Comments CHOLESTEROL, TOTAL (test code 141 mg/dL = 2093-3) HDL CHOLESTEROL (test code = 54 mg/dL 2085-9) TRIGLYCERIDES (test code = 62 mg/dL 2571-8) LDL-CHOLESTEROL (test code = 73 mg/dL(calc) 31361-3) CHOL/HDLC RATIO (test code = 2.6 (calc) 9830-1) NON HDL CHOLESTEROL (test code 87 mg/dL(calc) = 67947-1) HIV 1/2 ANTIGEN/ANTIBODY,FOURTH GENERATION [id number] 00:00:00 Test Item Value Reference Range Interpretation Comments HIV AG/AB, 4TH GEN (test code = TNP 66794-4) NEISSERIA GONORRHOEAE RNA, [id number] 00:00:00 Test Item Value Reference Range Interpretation Comments NEISSERIA GONORRHOEAE RNA, TMA, NOT DETECTED UROGENITAL (test code = 07596-9) COMMENT (test code = ) HEPATITIS PANEL, ACUTE W/REFLEX TO [id number] 00:00:00 Test Item Value Reference Range Interpretation Comments HEPATITIS A IGM (test code = NON-REACTIVE 71142-5) HEPATITIS B SURFACE ANTIGEN NON-REACTIVE (test code = 5196-1) CONFIRMATION (test code = DNR 7905-3) HEPATITIS B CORE ANTIBODY (IGM) NON-REACTIVE (test code = 16357-9) HEPATITIS C ANTIBODY (test code NON-REACTIVE = 17076-5) SIGNAL TO CUT-OFF (test code = 0.03 89435-4) RPR (MONITOR) W/REFL [id number] 00:00:00 Test Item Value Reference Range Interpretation Comments RPR (MONITOR) W/REFL TITER (test code = TNP 68366-8) CHLAMYDIA TRACHOMATIS RNA, [id number] 00:00:00 Test Item Value Reference Range Interpretation Comments CHLAMYDIA TRACHOMATIS RNA, TMA, NOT DETECTED UROGENITAL (test code = 81471-6) COMMENT (test code = ) HIV 1/2 ANTIGEN/ANTIBODY,FOURTH GENERATION [id number] 00:00:00 Test Item Value Reference Range Interpretation Comments HIV AG/AB, 4TH GEN (test code = TNP 52749-7) NEISSERIA GONORRHOEAE RNA, [id number] 00:00:00 Test Item Value Reference Range Interpretation Comments NEISSERIA GONORRHOEAE RNA, TMA, NOT DETECTED UROGENITAL (test code = 56917-4) COMMENT (test code = ) HEPATITIS PANEL, ACUTE W/REFLEX TO [id number] 00:00:00 Test Item Value Reference Range Interpretation Comments HEPATITIS A IGM (test code = NON-REACTIVE 73960-7) HEPATITIS B SURFACE ANTIGEN NON-REACTIVE (test code = 5196-1) CONFIRMATION (test code = DNR 7905-3) HEPATITIS B CORE ANTIBODY (IGM) NON-REACTIVE (test code = 65680-2) HEPATITIS C ANTIBODY (test code NON-REACTIVE = 84547-2) SIGNAL TO CUT-OFF (test code = 0.03 05888-8) RPR (MONITOR) W/REFL [id number] 00:00:00 Test Item Value Reference Range Interpretation Comments RPR (MONITOR) W/REFL TITER (test code = TNP 45184-6) CHLAMYDIA TRACHOMATIS RNA, [id number] 00:00:00 Test Item Value Reference Range Interpretation Comments CHLAMYDIA TRACHOMATIS RNA, TMA, NOT DETECTED UROGENITAL (test code = 89939-5) COMMENT (test code = ) HIV 1/2 ANTIGEN/ANTIBODY,FOURTH GENERATION [id number] 00:00:00 Test Item Value Reference Range Interpretation Comments HIV AG/AB, 4TH GEN (test code = TNP 58207-6) NEISSERIA GONORRHOEAE RNA, [id number] 00:00:00 Test Item Value Reference Range Interpretation Comments NEISSERIA GONORRHOEAE RNA, TMA, NOT DETECTED UROGENITAL (test code = 47794-7) COMMENT (test code = ) HEPATITIS PANEL, ACUTE W/REFLEX TO [id number] 00:00:00 Test Item Value Reference Range Interpretation Comments HEPATITIS A IGM (test code = NON-REACTIVE 16711-4) HEPATITIS B SURFACE ANTIGEN NON-REACTIVE (test code = 5196-1) CONFIRMATION (test code = DNR 7905-3) HEPATITIS B CORE ANTIBODY (IGM) NON-REACTIVE (test code = 12604-3) HEPATITIS C ANTIBODY (test code NON-REACTIVE = 80349-7) SIGNAL TO CUT-OFF (test code = 0.03 44398-2) RPR (MONITOR) W/REFL [id number] 00:00:00 Test Item Value Reference Range Interpretation Comments RPR (MONITOR) W/REFL TITER (test code = TNP 57434-6) CHLAMYDIA TRACHOMATIS RNA, [id number] 00:00:00 Test Item Value Reference Range Interpretation Comments CHLAMYDIA TRACHOMATIS RNA, TMA, NOT DETECTED UROGENITAL (test code = 66631-1) COMMENT (test code = ) VAGINAL PATHOGENS DNA [id number] 00:00:00 Test Item Value Reference Range Interpretation Comments SUZE SPECIES (test code = ) POSITIVE G. VAGINALIS (test code = 30226) NEGATIVE T. VAGINALIS (test code = 26546) NEGATIVE VAGINAL PATHOGENS DNA [id number] 00:00:00 Test Item Value Reference Range Interpretation Comments SUZE SPECIES (test code = ) POSITIVE G. VAGINALIS (test code = 67285) NEGATIVE T. VAGINALIS (test code = 22654) NEGATIVE ACUTE HEPATITIS [id number] 00:00:00 Test Item Value Reference Range Interpretation Comments HEPATITIS A IgM (test code = NON-REACTIVE 70552) HEPATITIS B CORE IgM (test code NON-REACTIVE = 4644) HEPATITIS B SURF AG (test code = NON-REACTIVE 2739) HEPATITIS C ANTIBODY (test code NON-REACTIVE = 4675) HCV INDEX (test code = 35784) 0.08 INTERPRETATION HEPATITIS A: (NOTE) (test code = 2552) INTERPRETATION HEPATITIS B: (NOTE) (test code = 98974) INTERPRETATION HEPATITIS C: (NOTE) (test code = 17559) ACUTE HEPATITIS [id number] 00:00:00 Test Item Value Reference Range Interpretation Comments HEPATITIS A IgM (test code = NON-REACTIVE 49820) HEPATITIS B CORE IgM (test code NON-REACTIVE = 4644) HEPATITIS B SURF AG (test code = NON-REACTIVE 2739) HEPATITIS C ANTIBODY (test code NON-REACTIVE = 4675) HCV INDEX (test code = 40379) 0.08 INTERPRETATION HEPATITIS A: (NOTE) (test code = 2552) INTERPRETATION HEPATITIS B: (NOTE) (test code = 40692) INTERPRETATION HEPATITIS C: (NOTE) (test code = 26570) HIV AB/AG COMBO RFLX [id number] 00:00:00 Test Item Value Reference Range Interpretation Comments HIV 1/2 4TH GEN, RFLX CONF (test NON-REACTIVE code = 3514) HIV AB/AG COMBO RFLX [id number] 00:00:00 Test Item Value Reference Range Interpretation Comments HIV 1/2 4TH GEN, RFLX CONF (test NON-REACTIVE code = 3514) [id number] 00:00:00 Test Item Value Reference Range Interpretation Comments RPR RESULT (test code = NON-REACTIVE 3501) RPR TITER (test code = 3500) NOT INDIC. TITER [id number] 00:00:00 Test Item Value Reference Range Interpretation Comments RPR RESULT (test code = NON-REACTIVE 3501) RPR TITER (test code = 3500) NOT INDIC. TITER [id number] 00:00:00 Test Item Value Reference Range Interpretation Comments RPR RESULT (test code = NON-REACTIVE 3501) RPR TITER (test code = 3500) NOT INDIC. TITER VAGINAL PATHOGENS DNA [id number] 00:00:00 Test Item Value Reference Range Interpretation Comments SUZE SPECIES (test code = 90719) POSITIVE G. VAGINALIS (test code = 47452) NEGATIVE T. VAGINALIS (test code = 49468) NEGATIVE VAGINAL PATHOGENS DNA [id number] 00:00:00 Test Item Value Reference Range Interpretation Comments SUZE SPECIES (test code = 55184) POSITIVE G. VAGINALIS (test code = 90341) NEGATIVE T. VAGINALIS (test code = 14540) NEGATIVE ACUTE HEPATITIS [id number] 00:00:00 Test Item Value Reference Range Interpretation Comments HEPATITIS A IgM (test code = NON-REACTIVE 28784) HEPATITIS B CORE IgM (test code NON-REACTIVE = 4644) HEPATITIS B SURF AG (test code = NON-REACTIVE 2739) HEPATITIS C ANTIBODY (test code NON-REACTIVE = 4675) HCV INDEX (test code = 10175) 0.08 INTERPRETATION HEPATITIS A: (NOTE) (test code = 2552) INTERPRETATION HEPATITIS B: (NOTE) (test code = 76048) INTERPRETATION HEPATITIS C: (NOTE) (test code = 48063) ACUTE HEPATITIS [id number] 00:00:00 Test Item Value Reference Range Interpretation Comments HEPATITIS A IgM (test code = NON-REACTIVE 55185) HEPATITIS B CORE IgM (test code NON-REACTIVE = 4644) HEPATITIS B SURF AG (test code = NON-REACTIVE 2739) HEPATITIS C ANTIBODY (test code NON-REACTIVE = 4675) HCV INDEX (test code = 27770) 0.08 INTERPRETATION HEPATITIS A: (NOTE) (test code = 2552) INTERPRETATION HEPATITIS B: (NOTE) (test code = 70180) INTERPRETATION HEPATITIS C: (NOTE) (test code = 99880) HIV AB/AG COMBO RFLX [id number] 00:00:00 Test Item Value Reference Range Interpretation Comments HIV 1/2 4TH GEN, RFLX CONF (test NON-REACTIVE code = 3514) HIV AB/AG COMBO RFLX [id number] 00:00:00 Test Item Value Reference Range Interpretation Comments HIV 1/2 4TH GEN, RFLX CONF (test NON-REACTIVE code = 3514) [id number] 00:00:00 Test Item Value Reference Range Interpretation Comments RPR RESULT (test code = NON-REACTIVE 3501) RPR TITER (test code = 3500) NOT INDIC. TITER [id number] 00:00:00 Test Item Value Reference Range Interpretation Comments RPR RESULT (test code = NON-REACTIVE 3501) RPR TITER (test code = 3500) NOT INDIC. TITER [id number] 00:00:00 Test Item Value Reference Range Interpretation Comments RPR RESULT (test code = NON-REACTIVE 3501) RPR TITER (test code = 3500) NOT INDIC. TITER VAGINAL PATHOGENS DNA [id number] 00:00:00 Test Item Value Reference Range Interpretation Comments SUZE SPECIES (test code = ) POSITIVE G. VAGINALIS (test code = 53221) NEGATIVE T. VAGINALIS (test code = 46861) NEGATIVE VAGINAL PATHOGENS DNA [id number] 00:00:00 Test Item Value Reference Range Interpretation Comments SUZE SPECIES (test code = 60794) POSITIVE G. VAGINALIS (test code = 51807) NEGATIVE T. VAGINALIS (test code = 37728) NEGATIVE ACUTE HEPATITIS [id number] 00:00:00 Test Item Value Reference Range Interpretation Comments HEPATITIS A IgM (test code = NON-REACTIVE 27497) HEPATITIS B CORE IgM (test code NON-REACTIVE = 4644) HEPATITIS B SURF AG (test code = NON-REACTIVE 2739) HEPATITIS C ANTIBODY (test code NON-REACTIVE = 4675) HCV INDEX (test code = 08206) 0.08 INTERPRETATION HEPATITIS A: (NOTE) (test code = 2552) INTERPRETATION HEPATITIS B: (NOTE) (test code = 40988) INTERPRETATION HEPATITIS C: (NOTE) (test code = 85163) ACUTE HEPATITIS [id number] 00:00:00 Test Item Value Reference Range Interpretation Comments HEPATITIS A IgM (test code = NON-REACTIVE 39836) HEPATITIS B CORE IgM (test code NON-REACTIVE = 4644) HEPATITIS B SURF AG (test code = NON-REACTIVE 2739) HEPATITIS C ANTIBODY (test code NON-REACTIVE = 4675) HCV INDEX (test code = 44609) 0.08 INTERPRETATION HEPATITIS A: (NOTE) (test code = 2552) INTERPRETATION HEPATITIS B: (NOTE) (test code = 65174) INTERPRETATION HEPATITIS C: (NOTE) (test code = 36260) HIV AB/AG COMBO RFLX [id number] 00:00:00 Test Item Value Reference Range Interpretation Comments HIV 1/2 4TH GEN, RFLX CONF (test NON-REACTIVE code = 3514) HIV AB/AG COMBO RFLX [id number] 00:00:00 Test Item Value Reference Range Interpretation Comments HIV 1/2 4TH GEN, RFLX CONF (test NON-REACTIVE code = 3514) [id number] 00:00:00 Test Item Value Reference Range Interpretation Comments RPR RESULT (test code = NON-REACTIVE 3501) RPR TITER (test code = 3500) NOT INDIC. TITER [id number] 00:00:00 Test Item Value Reference Range Interpretation Comments RPR RESULT (test code = NON-REACTIVE 3501) RPR TITER (test code = 3500) NOT INDIC. TITER [id number] 00:00:00 Test Item Value Reference Range Interpretation Comments RPR RESULT (test code = NON-REACTIVE 3501) RPR TITER (test code = 3500) NOT INDIC. TITER CHLAMYDIA, AMPLIFIED, [id number] 00:00:00 Test Item Value Reference Range Interpretation Comments CHLAMYDIA, TMA (test code = 92091) NEGATIVE CHLAMYDIA, AMPLIFIED, [id number] 00:00:00 Test Item Value Reference Range Interpretation Comments CHLAMYDIA, TMA (test code = 21357) NEGATIVE GC, AMPLIFIED, [id number] 00:00:00 Test Item Value Reference Range Interpretation Comments GONORRHEA, TMA (test code = 15826) NEGATIVE GC, AMPLIFIED, [id number] 00:00:00 Test Item Value Reference Range Interpretation Comments GONORRHEA, TMA (test code = 97110) NEGATIVE CHLAMYDIA, AMPLIFIED, [id number] 00:00:00 Test Item Value Reference Range Interpretation Comments CHLAMYDIA, TMA (test code = 94501) NEGATIVE CHLAMYDIA, AMPLIFIED, [id number] 00:00:00 Test Item Value Reference Range Interpretation Comments CHLAMYDIA, TMA (test code = 75319) NEGATIVE GC, AMPLIFIED, [id number] 00:00:00 Test Item Value Reference Range Interpretation Comments GONORRHEA, TMA (test code = 51755) NEGATIVE GC, AMPLIFIED, [id number] 00:00:00 Test Item Value Reference Range Interpretation Comments GONORRHEA, TMA (test code = 05562) NEGATIVE CHLAMYDIA, AMPLIFIED, [id number] 00:00:00 Test Item Value Reference Range Interpretation Comments CHLAMYDIA, TMA (test code = 57356) NEGATIVE CHLAMYDIA, AMPLIFIED, [id number] 00:00:00 Test Item Value Reference Range Interpretation Comments CHLAMYDIA, TMA (test code = 97800) NEGATIVE GC, AMPLIFIED, [id number] 00:00:00 Test Item Value Reference Range Interpretation Comments GONORRHEA, TMA (test code = 77167) NEGATIVE GC, AMPLIFIED, [id number] 00:00:00 Test Item Value Reference Range Interpretation Comments GONORRHEA, TMA (test code = 74914) NEGATIVE
[2022-10-18 00:22] LABS: Specific Gravity 1.027 (1.005-1.030)
[2022-10-18 00:45] LABS: Specific Gravity 1.027 (1.005-1.030); Urine Bacteria None Seen /HPF (<20); Urine Bilirubin NEGATIVE (Negative); Urine Blood Negative (Negative); Urine Clarity Clear (Clear); Urine Color Light-Yellow (Yellow); Urine Glucose NEGATIVE (Negative); Urine Mucus 1+ /HPF (None Seen); Urine Protein NEGATIVE (Negative); Urine RBC <5 /HPF (None Seen); Urine Urobilinogen Normal (Normal)
--- NOTE | 2022-10-18 00:51 | ER ---
Nurse's Notes [facility] Name: Jessica Stevens Age: 21 yrs Sex: Female : 2000 Arrival Date: 10/17/2022 Time: 23:14 Bed 14 Private MD: Diagnosis: Other malaise and fatigue;Acute upper respiratory infection, unspecified Presentation: 10/17 23:30 Chief complaint: Patient states: about 4 days ago I felt like I had something stuck in kd3 my throat, now that is a bit better but it hasn't gone all the way away. 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 Coronavirus screen: Vaccine status: Patient reports being unvaccinated. Ebola Screen: No symptoms or risks identified at this time. Initial Sepsis Screen: Does the patient meet any 2 criteria? No. Patient's initial sepsis screen is negative. Does the patient have a suspected source of infection? No. Patient's initial sepsis screen is negative. Risk Assessment: Do you want to hurt yourself or someone else? Patient reports no desire to harm self or others. Onset of symptoms was October 17, 2022. 23:30 Method Of Arrival: Ambulatory kd3 23:30 Acuity: DONNY 4 kd3 Triage Assessment: 23:34 General: Appears in no apparent distress. Behavior is calm, cooperative. Pain: Denies kd3 pain. Musculoskeletal: Circulation, motion, and sensation intact. 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 - Social history:: Smoking status: Patient denies any tobacco usage or history of. Patient uses. Screenin:51 Abuse screen: Denies threats or abuse. Denies injuries from another. Nutritional aa9 screening: No deficits noted. Tuberculosis screening: No symptoms or risk factors identified. 10/18 01:14 [facility] [place] ED Fall Risk Assessment (Adult) History of falling in the last 3 months, aa9 including since admission No falls in past 3 months (0 pts) Confusion or Disorientation No (0 pts) Intoxicated or Sedated No (0 pts) Impaired Gait No (0 pts) Mobility Assist Device Used No (0 pt) Altered Elimination No (0 pt) Score/Fall Risk Level 0 - 2 = Low Risk Oriented to surroundings, Maintained a safe environment, Educated pt \T\ family on fall prevention, incl call for assistance when getting out of bed. Assessment: 10/17 23:50 General: Appears in no apparent distress. comfortable, Behavior is calm, cooperative. aa9 Neuro: Level of Consciousness is awake, alert, obeys commands, Oriented to person, place, time, situation. Cardiovascular: Patient's skin is warm and dry. Respiratory: Airway is patent Respiratory effort is even, unlabored. 10/18 00:20 Reassessment: Patient appears in no apparent distress at this time. Patient and/or aa9 family updated on plan of care and expected duration. Pain level reassessed. Patient is alert, oriented x 3, equal unlabored respirations, skin warm/dry/pink. Patient denies pain at this time. 01:14 Reassessment: Patient appears in no apparent distress at this time. Patient and/or aa9 family updated on plan of care and expected duration. Pain level reassessed. Patient is alert, oriented x 3, equal unlabored respirations, skin warm/dry/pink. Patient denies pain at this time. Vital Signs: 10/17 23:30 BP 136 / 85; Pulse 59; Resp 15; Temp 98.8(O); Pulse Ox 100% on R/A; Weight 63.5 kg; kd3 Height 5 ft. 2 in. ; 10/18 00:34 BP 130 / 82; Pulse 61; Resp 16; Pulse Ox 97% on R/A; aa9 01:14 BP 128 / 79; Pulse 62; Resp 18 S; Temp 98.6; Pulse Ox 97% on R/A; aa9 10/17 23:30 Body Mass Index 25.61 (63.50 kg, 157.48 cm) kd3 ED Course: 10/17 23:17 Patient arrived in ED. ja2 23:34 Triage completed. kd3 23:34 Arm band placed on right wrist. kd3 23:38 Ana Villanueva FNP-C is [facility]. snw 23:38 Luis Eduardo Hathaway MD is Attending Physician. snw 23:40 Maday Nichols RN is Primary Nurse. aa9 23:50 Strep Sent. aa9 23:51 Patient has correct armband on for positive identification. Bed in low position. Call aa9 light in reach. Side rails up X 1. Pulse ox on. NIBP on. 10/18 00:03 PREGU Sent. aa9 00:03 Urine W/Microscopic (UAM) Sent. aa9 00:03 Strep Sent. aa9 01:14 No provider procedures requiring assistance completed. Patient did not have IV access aa9 during this emergency room visit. Administered Medications: No medications were administered Medication: :14 VIS not applicable for this client. aa9 Outcome: 00:50 Discharge ordered by . jennifer 01:14 Discharged to home ambulatory. aa9 01:14 Condition: stable 01:14 Discharge instructions given to patient, Instructed on discharge instructions, follow up and referral plans. Demonstrated understanding of instructions, follow-up care, medications, Prescriptions given X 2. 01:15 Patient left the ED. aa9 Signatures: Ana Villanueva, MACHINE RECORDS UNITS SUPERVISOR-C MACHINE RECORDS UNITS SUPERVISOR-Bing Mosquera Kyli, RN RN kd3 Maday Nichols, SAMY RN aa9
--- NOTE | 2022-10-18 00:51 | EDPHYS ---
Physician Documentation [facility] Name: Jessica Stevens Age: 21 yrs Sex: Female : 2000 Arrival Date: 10/17/2022 Time: 23:14 Bed 14 Private MD: ED Physician Luis Eduardo Hathaway HPI: 10/18 00:00 This 21 yrs old Female presents to ER via Ambulatory with complaints of Back snw Pain, Sore Throat. 00:00 The patient presents with urinary symptoms. Onset: The symptoms/episode began/occurred snw 5 day(s) ago, and became persistent. Associated signs and symptoms: Pertinent positives: spotting, congestion, and low back pain. The patient is sexually active. The patient has not experienced similar symptoms in the past. 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 - Social history:: Smoking status: Patient denies any tobacco usage or history of. Patient uses. ROS: 23:59 Eyes: Negative for injury, pain, redness, and discharge. snw 23:59 Neck: Negative for injury, pain, and swelling, Cardiovascular: Negative for chest pain, palpitations, and edema, Respiratory: Negative for shortness of breath, cough, wheezing, and pleuritic chest pain, Abdomen/GI: Negative for abdominal pain, nausea, vomiting, diarrhea, and constipation, Back: Negative for injury and pain, : Negative for injury, bleeding, discharge, and swelling, MS/Extremity: Negative for injury and deformity, Skin: Negative for injury, rash, and discoloration, Neuro: Negative for headache, weakness, numbness, tingling, and seizure, Psych: Negative for depression, anxiety, suicide ideation, homicidal ideation, and hallucinations. 23:59 Constitutional: Positive for body aches, fatigue, malaise. 23:59 ENT: Positive for sore throat. Exam: 23:59 Constitutional: This is a well developed, well nourished patient who is awake, alert, snw and in no acute distress. Head/Face: Normocephalic, atraumatic. Eyes: Pupils equal round and reactive to light, extra-ocular motions intact. Lids and lashes normal. Conjunctiva and sclera are non-icteric and not injected. Cornea within normal limits. Periorbital areas with no swelling, redness, or edema. ENT: Nares patent. No nasal discharge, no septal abnormalities noted. Tympanic membranes are normal and external auditory canals are clear. Oropharynx with no redness, swelling, or masses, exudates, or evidence of obstruction, uvula midline. Mucous membranes moist. Neck: Trachea midline, no thyromegaly or masses palpated, and no cervical lymphadenopathy. Supple, full range of motion without nuchal rigidity, or vertebral point tenderness. No Meningismus. Chest/axilla: Normal chest wall appearance and motion. Nontender with no deformity. No lesions are appreciated. Cardiovascular: Regular rate and rhythm with a normal S1 and S2. No gallops, murmurs, or rubs. Normal PMI, no JVD. No pulse deficits. Respiratory: Lungs have equal breath sounds bilaterally, clear to auscultation and percussion. No rales, rhonchi or wheezes noted. No increased work of breathing, no retractions or nasal flaring. Abdomen/GI: Soft, non-tender, with normal bowel sounds. No distension or tympany. No guarding or rebound. No evidence of tenderness throughout. Back: No spinal tenderness. No costovertebral tenderness. Full range of motion. Skin: Warm, dry with normal turgor. Normal color with no rashes, no lesions, and no evidence of cellulitis. MS/ Extremity: Pulses equal, no cyanosis. Neurovascular intact. Full, normal range of motion. Neuro: Awake and alert, GCS 15, oriented to person, place, time, and situation. Cranial nerves II-XII grossly intact. Motor strength 5/5 in all extremities. Sensory grossly intact. Cerebellar exam normal. Normal gait. Vital Signs: 23:30 BP 136 / 85; Pulse 59; Resp 15; Temp 98.8(O); Pulse Ox 100% on R/A; Weight 63.5 kg; kd3 Height 5 ft. 2 in. ; 10/18 00:34 BP 130 / 82; Pulse 61; Resp 16; Pulse Ox 97% on R/A; aa9 01:14 BP 128 / 79; Pulse 62; Resp 18 S; Temp 98.6; Pulse Ox 97% on R/A; aa9 10/17 23:30 Body Mass Index 25.61 (63.50 kg, 157.48 cm) kd3 MDM: 10/17 23:40 Patient medically screened. snw 10/18 00:51 Differential diagnosis: dysmenorrhea, nonspecific abdominal pain, urinary tract snw infection. Data reviewed: vital signs, nurses notes. Counseling: I had a detailed discussion with the patient and/or guardian regarding: the historical points, exam findings, and any diagnostic results supporting the discharge/admit diagnosis, lab results, the need for outpatient follow up, for definitive care, to return to the emergency department if symptoms worsen or persist or if there are any questions or concerns that arise at home. Special discussion: Based on the history and exam findings, there is no indication for further emergent testing or inpatient evaluation. I discussed with the patient/guardian the need to see the primary care provider for further evaluation of the symptoms. 10/17 23:39 Order name: Strep; Complete Time: 00:26 snw 10/17 23:39 Order name: PREGU; Complete Time: 00:26 snw 10/17 23:39 Order name: Urine W/Microscopic (UAM); Complete Time: 00:49 snw 10/18 00:21 Order name: Throat Culture EDMS Administered Medications: No medications were administered Disposition Summary: 10/18/22 00:50 Discharge Ordered Location: Home snw Condition: Stable snw Diagnosis - Other malaise and fatigue snw - Acute upper respiratory infection, unspecified snw Followup: snw - With: Emergency Department - When: As needed - Reason: Worsening of condition Followup: snw - With: Private Physician - When: 2 - 3 days - Reason: Recheck today's complaints, Continuance of care, Re-evaluation by your physician Discharge Instructions: - Discharge Summary Sheet snw - Upper Respiratory Infection, Adult snw - Fatigue snw - Rehydration, Adult snw Forms: - Work release form snw - Medication Reconciliation Form snw - Thank You Letter snw - Antibiotic Education snw - Prescription Opioid Use snw Prescriptions: - Zyrtec 10 mg Oral Tablet - take 1 tablet by ORAL route once daily As needed; 20 tablet; Refills: 0, snw Product Selection Permitted - Pepcid 20 mg Oral Tablet - take 1 tablet by ORAL route once daily; 20 tablet; Refills: 0, Product snw Selection Permitted Signatures: Dispatcher [employer] EDMS Villanueva, Naa, TERAD[employer] ARCHITECT-C [employer] ARCHIT[employer]-Csnw Rika Marroquin, RN RN kd3
[2022-10-18 01:51] VITALS: O2SAT 97
[2022-10-18 01:52] VITALS: BP 128/79; TEMP 98.6
== END 2022-10-18 01:15 | disposition home or self-care (01) ==
LOC: ER 23:14
DX: J06.9 Acute upper respiratory infection, unspecified (principal); R53.83 Other fatigue; M54.50 Low back pain, unspecified
CPT/HCPCS: 81001; 81025; 87070; 87081; 99284

== ENCOUNTER 2023-09-18 14:30 | Emergency (ER) | payer OTHER, SELFPAY ==
--- OUTSIDE RECORDS SUMMARY | 2023-09-18 14:35 | XMS REPORT | Continuity of Care Document ---
Author Name Unknown Address 1200 [facility]. [address] th[address] Address 1200 [facility] 1 495 [place] [address] Care Team Providers Care Business Applications Manager Name Role Phone Norma Pugh Primary Care Physician MARY GRACE Attending Clinician Unavailable Raju_P Attending Clinician Unavailable MARY GRACE Admitting Clinician Unavailable Raju_P Admitting Clinician Unavailable Medications Ordered Medication Name Filled Medication Name Start Date Stop Date Current Medication? Ordering Clinician Indication Dosage Frequency Signature (SIG) Comments Components Source CEPHALEXIN CAP 500MG 2022-0 8-30 00:00: 00 No 500 &lt 2022-0 8-06 00:00: 00 No 500 Dose Unknown 2022-0 8-06 00:00: 00 No &lt 2022-0 8-06 00:00: 00 No 500 Dose Unknown 2022-0 8-06 00:00: 00 No &lt 2022-0 7-30 00:00: 00 No &lt 2022-0 7-30 00:00: 00 No &lt 2022-0 7-29 00:00: 00 No 500 &lt 2022-0 7-29 00:00: 00 No 500 Dose Unknown 2022-0 7-26 00:00: 00 No Dose Unknown 2022-0 7-26 00:00: 00 No fluconazole 150 mg tablet 2022-0 6-28 00:00: 00 No 1mg &lt 2022-0 6-28 00:00: 00 No &lt 2022-0 6-28 00:00: 00 No fluconazole 150 mg tablet 2022-0 6-28 00:00: 00 No 1mg &lt 2022-0 6-28 00:00: 00 No &lt 2022-0 6- 00:00: 00 No &lt 2022-0 6- 00:00: 00 No &lt 2022-0 622 00:00: 00 No Dovonex 0.005 % topical cream 2-0 6-20 00:00: 00 No 1% metronidazo le 500 mg tablet 2021-0 6-20 00:00: 00 No 1mg ibuprofen 400 mg tablet 2021-0 6-20 00:00: 00 No 1mg &lt 2022-0 6-20 00:00: 00 No Dovonex 0.005 % topical cream 2-0 6-20 00:00: 00 No 1% metronidazo le 500 mg tablet 2021-0 6-20 00:00: 00 No 1mg ibuprofen 400 mg tablet 0 6- 00:00: 00 No 1mg &lt 2022-0 6-20 00:00: 00 No &lt 2022-0 6- 00:00: 00 No &lt 2022-0 6 00:00: 00 No mupirocin 2 % topical ointment 2021-0 4- 00:00: 00 No 1% Dose Unknown 2021-0 4- 00:00: 00 No mupirocin 2 % topical ointment 2-0 4- 00:00: 00 No 1% Dose Unknown 2-0 4- 00:00: 00 No Dose Unknown 2021-0 4-15 00:00: 00 No Dose Unknown 2-0 4-15 00:00: 00 No mupirocin 2 % topical ointment 2021-0 4-06 00:00: 00 No 1% sulfamethox azole 800 mg-trimetho prim 160 mg tablet 0 4-06 00:00: 00 No 1mg mupirocin 2 % topical ointment 2-0 4-06 00:00: 00 No 1% sulfamethox azole 800 mg-trimetho prim 160 mg tablet 2021-0 4-06 00:00: 00 No 1mg metronidazo le 500 mg tablet 2021-0 4- 00:00: 00 No 1mg metronidazo le 500 mg tablet 2021-0 4- 00:00: 00 No 1mg doxycycline hyclate 100 mg tablet 0 3-29 00:00: 00 No 1mg doxycycline hyclate 100 mg tablet 0 3-29 00:00: 00 No 1mg Dose Unknown 2020-05 2-22 00:00: 00 No Dose Unknown 2020-05 2-22 00:00: 00 No doxycycline hyclate 100 mg tablet 2020-05 2- 00:00: 00 No 1mg doxycycline hyclate 100 mg tablet 2020-05 2- 00:00: 00 No 1mg Dose Unknown 2020-05 0-07 00:00: 00 No Dose Unknown 2020-05 0-07 00:00: 00 No azithromyci n 500 mg tablet 8- 00:00: 00 No 2mg azithromyci n 500 mg tablet 8- 00:00: 00 No 2mg Dose Unknown 6-07 00:00: 00 No Dose Unknown 6- 00:00: 00 No Vitamin D3 25 mcg (1,000 unit) capsule 0 6-05 00:00: 00 No 1(1,000 unit) Vitamin D3 25 mcg (1,000 unit) capsule 6-05 00:00: 00 No 1(1,000 unit) azithromyci n 500 mg tablet 5- 00:00: 00 No 2mg azithromyci n 500 mg tablet 5- 00:00: 00 No 2mg Dose Unknown 4-15 00:00: 00 No Dose Unknown 4-15 00:00: 00 No Flagyl 500 mg tablet 0 2-11 00:00: 00 No 1mg Diflucan 150 mg tablet 0 2-11 00:00: 00 No 1mg Flagyl 500 mg tablet 0 2-11 00:00: 00 No 1mg Diflucan 150 mg tablet 0 2- 00:00: 00 No 1mg metronidazo le 500 mg tablet 2019-05 2- 00:00: 00 No 1mg metronidazo le 500 mg tablet 2019-05 2- 00:00: 00 No 1mg clindamycin 1 % topical gel 02-05 00:00: 00 No 1% clindamycin 1 % topical gel 02-05 00:00: 00 No 1% clindamycin 1 % lotion 02-01 00:00: 00 No 1% clindamycin 1 % lotion 02-01 00:00: 00 No 1% mupirocin 2 % topical ointment 11-06 00:00: 00 No 1% prednisone 20 mg tablet 11-06 00:00: 00 No 1mg doxycycline monohydrate 100 mg capsule 11-06 00:00: 00 No 1mg mupirocin 2 % topical ointment 11-06 00:00: 00 No 1% prednisone 20 mg tablet 11-06 00:00: 00 No 1mg doxycycline monohydrate 100 mg capsule 11-06 00:00: 00 No 1mg Dose Unknown 10-31 00:00: 00 No Dose Unknown 10-31 00:00: 00 No Xulane 150 mcg-35 mcg/24 hr transdermal patch 05-21 00:00: 00 No 1mcg/24 hr Xulane 150 mcg-35 mcg/24 hr transdermal patch 05-21 00:00: 00 No 1mcg/24 hr Xulane 150 mcg-35 mcg/24 hr transdermal patch 2018-05 00:00: 00 No 1mcg/24 hr citalopram 10 mg tablet 2018-05 00:00: 00 No 1mg Xulane 150 mcg-35 mcg/24 hr transdermal patch 2018-05 00:00: 00 No 1mcg/24 hr citalopram 10 mg tablet 2018-05 00:00: 00 No 1mg Diflucan 150 mg tablet 08-23 00:00: 00 No 1mg Diflucan 150 mg tablet 08-23 00:00: 00 No 1mg amoxicillin 875 mg tablet 07-08 00:00: 00 No 1mg amoxicillin 875 mg tablet 07-08 00:00: 00 No 1mg permethrin 5 % topical cream 01-19 00:00: 00 No 1% permethrin 5 % topical cream 01-19 00:00: 00 No 1% permethrin 5 % topical cream 09-29 00:00: 00 No 1% permethrin 5 % topical cream 09-29 00:00: 00 No 1% Vital Signs Vital Name Observation Time Observation Value Comments S ource BP Systolic 2022-01-19 15:06:00 119 mm[Hg] BP [...] Rate 2021-02-04 13:16:00 Respiratory Rate 2021-02-04 13:16:00 Plan of Care Planned Activity Planned Date Details Comments Source Goal Plan of Care Note [code = 14213-2] Goal Plan of Care Note [code = 52974-9] Goal Plan of Care Note [code = 05347-5] Goal Plan of Care Note [code = 15110-1] Goal Plan of Care Note [code = 97627-5] Goal Plan of Care Note [code = 23558-2] Goal Plan of Care Note [code = 85611-3] Goal Plan of Care Note [code = 55924-4] Goal Plan of Care Note [code = 48207-8] Goal Plan of Care Note [code = 56227-3] Goal Plan of Care Note [code = 68599-5] Goal Plan of Care Note [code = 56560-2] Goal Plan of Care Note [code = 87244-7] Goal Plan of Care Note [code = 63389-7] Goal Plan of Care Note [code = 62516-0] Goal Plan of Care Note [code = 86504-8] Goal Plan of Care Note [code = 11852-9] Goal Plan of Care Note [code = 78599-6] Goal Plan of Care Note [code = 68120-0] Goal Plan of Care Note [code = 75271-8] Goal Plan of Care Note [code = 37538-1] Goal Plan of Care Note [code = 00107-8] Goal Plan of Care Note [code = 83395-4] Goal Plan of Care Note [code = 22461-1] Goal Plan of Care Note [code = 08240-4] Goal Plan of Care Note [code = 52753-0] Goal Plan of Care Note [code = 62406-6] Goal Plan of Care Note [code = 81046-2] Goal Plan of Care Note [code = 08602-1] Goal Plan of Care Note [code = 84129-7] Goal Plan of Care Note [code = 38891-2] Goal Plan of Care Note [code = 34198-7] Goal Plan of Care Note [code = 06300-3] Goal Plan of Care Note [code = 02909-9] Goal Plan of Care Note [code = 95186-3] Goal Plan of Care Note [code = 78666-5] Goal Plan of Care Note [code = 87586-6] Goal Plan of Care Note [code = 55223-2] Goal Plan of Care Note [code = 84861-7] Goal Plan of Care Note [code = 90233-3] Goal Plan of Care Note [code = 03656-0] Goal Plan of Care Note [code = 03435-1] Goal Plan of Care Note [code = 97908-2] Goal Plan of Care Note [code = 66703-7] Goal Plan of Care Note [code = 49677-2] Goal Plan of Care Note [code = 99238-3] Goal Plan of Care Note [code = 13811-2] Goal Plan of Care Note [code = 49344-4] Goal Plan of Care Note [code = 54967-3] Goal Plan of Care Note [code = 31510-3] Goal Plan of Care Note [code = 08671-5] Goal Plan of Care Note [code = 44343-0] Goal Plan of Care Note [code = 59145-6] Goal Plan of Care Note [code = 32117-6] Goal Plan of Care Note [code = 55167-1] Goal Plan of Care Note [code = 62417-8] Goal Plan of Care Note [code = 21035-5] Goal Plan of Care Note [code = 14228-8] Goal Plan of Care Note [code = 86427-0] Goal Plan of Care Note [code = 54265-6] Goal Plan of Care Note [code = 47602-8] Goal Plan of Care Note [code = 58556-6] Goal Plan of Care Note [code = 17289-0] Goal Plan of Care Note [code = 39500-6] Goal Plan of Care Note [code = 59856-9] Goal Plan of Care Note [code = 81995-9] Goal Plan of Care Note [code = 34319-8] Goal Plan of Care Note [code = 02111-4] Goal Plan of Care Note [code = 51790-4] Goal Plan of Care Note [code = 86183-2] Goal Plan of Care Note [code = 80190-9] Goal Plan of Care Note [code = 97718-5] Goal Plan of Care Note [code = 30488-3] Goal Plan of Care Note [code = 89370-0] Goal Plan of Care Note [code = 34246-3] Goal Plan of Care Note [code = 54281-0] Goal Plan of Care Note [code = 06497-6] Goal Plan of Care Note [code = 85331-4] Goal Plan of Care Note [code = 90746-8] Goal Plan of Care Note [code = 17485-0] Goal Plan of Care Note [code = 93709-4] Goal Plan of Care Note [code = 91284-8] Goal Plan of Care Note [code = 05706-0] Goal Plan of Care Note [code = 41396-1] Goal Plan of Care Note [code = 40369-4] Goal Plan of Care Note [code = 79831-9] Goal Plan of Care Note [code = 41470-2] Goal Plan of Care Note [code = 97527-3] Goal Plan of Care Note [code = 28241-8] Goal Plan of Care Note [code = 39968-0] Goal Plan of Care Note [code = 55785-5] Goal Plan of Care Note [code = 80836-5] Goal Plan of Care Note [code = 41925-0] Goal Plan of Care Note [code = 66484-6] Goal Plan of Care Note [code = 67926-3] Goal Plan of Care Note [code = 53414-4] Goal Plan of Care Note [code = 91535-5] Goal Plan of Care Note [code = 76915-0] Goal Plan of Care Note [code = 93843-3] Goal Plan of Care Note [code = 04210-9] Goal Plan of Care Note [code = 54957-2] Goal Plan of Care Note [code = 77594-7] Goal Plan of Care Note [code = 68837-2] Goal Plan of Care Note [code = 02243-8] Goal Plan of Care Note [code = 22147-9] Goal Plan of Care Note [code = 28316-1] Goal Plan of Care Note [code = 64868-9] Goal Plan of Care Note [code = 40059-1] Goal Plan of Care Note [code = 76396-7] Goal Plan of Care Note [code = 90945-1] Goal Plan of Care Note [code = 98696-2] Goal Plan of Care Note [code = 36672-3] Goal Plan of Care Note [code = 22371-7] Goal Plan of Care Note [code = 47927-9] Goal Plan of Care Note [code = 80102-0] Goal Plan of Care Note [code = 85159-5] Goal Plan of Care Note [code = 60502-1] Goal Plan of Care Note [code = 12715-3] Goal Plan of Care Note [code = 78286-6] Goal Plan of Care Note [code = 62737-3] Goal Plan of Care Note [code = 45503-0] Goal Plan of Care Note [code = 91791-0] Goal Plan of Care Note [code = 78967-9] Encounters Start Date/Time End Date/Time Encounter Type Admission Type Attending [facility] Facility Care Department Encounter ID Source 2023-07-05 15:01:40 2023-07-05 15:01:40 Outpatient SFA SFA [id number] Jordan Trotter 2023-06-15 16:32:53 2023-06-15 16:32:53 Outpatient SFA SFA [id number] Jordan Hoff [place] 2023-06-08 15:58:25 2023-06-08 15:58:25 Outpatient SFA SFA [id number] Jordan Hoff [place] 2023-03-02 16:07:13 2023-03-02 16:07:13 Outpatient SFA SFA [id number] Jordan Trotter 2023-01-19 14:19:58 2023-01-19 14:19:58 Outpatient SFA SFA [id number] Jordan Hoff [place] 2022-12-27 13:59:53 2022-12-27 13:59:53 Outpatient SFA SFA [id number] Jordan Hoff [place] 2022-11-01 15:05:24 2022-11-01 15:05:24 Outpatient SFA SFA [id number] Jordan Hoff [place] 2022-09-07 17:06:19 2022-09-07 17:06:19 Outpatient SFA SFA [id number] Jordan Hoff [place] 2022-07-15 15:30:04 2022-07-15 15:30:04 Outpatient SFA SFA [id number] Jordan Hoff [place] 2022-03-13 13:05:30 2022-03-13 13:05:30 Outpatient SFA SFA [id number] Jordan Hoff [place] 2022-02-17 17:07:00 2022-02-17 17:07:00 Outpatient SFA SFA [id number] Jordan Hoff [place] 2022-02-16 00:00:00 2022-02-16 00:00:00 Outpatient Visit [id number] 2022-01-19 00:00:00 2022-01-19 00:00:00 Outpatient Visit [id number] 2022-01-06 00:00:00 2022-01-06 00:00:00 Outpatient Visit [id number] 2021-12-14 00:00:00 2021-12-14 00:00:00 Outpatient LISTER_MELI SSA [facility] [id number] [facility] Program 2019-09-13 03:56:00 2019-09-13 03:56:00 Outpatient Raju_P MMG MMG [id number] [facility] Results Test Description Test Time Test Comments Results Result Co mments Source VAGINAL PATHOGENS DNA [id number] 12:18:43* Test Item Value Reference Range Interpretation Comme nts SUZE SPECIES (test code = 15249) NEGATIVE NEGATIVE G. VAGINALIS (test code = 97584) POSITIVE NEGATIVE A T. VAGINALIS (test code = 89286) NEGATIVE NEGATIVE Note: The [facility] ir VPIII Microbial Identification Testis a DNA probe test intended for use in the detectionand identification of Suze species, Gardnerellavaginalis and Trichomonas vaginalis nucleic acid. HIV 1/2 4TH GEN, RFLX [id number] 04:29:11* Test Item Value Reference Range Interpretation Comme nts HIV 1/2 4TH GEN, RFLX CONF (test code = 3514) NON-REACTIVE NON-REACTIVE UNLESS OTHERWISE INDICATED, ALL TESTING PERFORMED AT [facility] [address] [place] [address] TELECOM BILLING ANALYST: IRIS GRAJEDA M.D. CLIA NUMBER [id number] [facility] [place]. [id number] 03:15:26* Test Item Value Reference Range Interpretation Comme nts RPR RESULT (test code = 3501) NON-REACTIVE NON-REACTIVE RPR TITER (test code = 3500) NOT INDIC. TITER NOT INDIC. CULTURE, [id number] 15:13:35SPECIMEN NUMBER: [id number] CULTURE, URINE SPECIMEN NUMBER: [id number] SPECIMEN COMMENT: URINE SOURCE: URINE REPORT STATUS: FINAL FINAL REPORT: 12/29/2022 50-100,000 CFU/ML MIXED MICROBIAL POPULATION CO ESENT, NO PREDOMINATING ORGANISMS;PROBABLE CONTAMINANTS.CHLAMYDIA, NAAT, URINE 2022-12-28 20:15:36* Test Item Value Reference Range Interpretation Comme nts CHLAMYDIA, NAAT, URINE (test code = 83842) NEGATIVE NEGATIVE Testing is perfo rmed with Allyssa MIGUEL ANGEL 6800/8800 systems usingreal-time polymerase chain reaction (PCR) method. A negative result does not exclude low level infection, specimensampling error, or collection error. GONORRHEA, NAAT, [id number] 20:15:36* Test Item Value Reference Range Interpretation Comme nts GONORRHEA, NAAT, URINE (test code = 31124) NEGATIVE NEGATIVE Testing is perfo rmed with Allyssa MIGUEL ANGEL 6800/8800 systems usingreal-time polymerase chain reaction (PCR) method. A negative result does not exclude low level infection, specimensampling error, or collection error. VAGINAL PATHOGENS DNA [id number] 16:55:55* Test Item Value Reference Range Interpretation Comme nts SUZE SPECIES (test code = 17094) NEGATIVE NEGATIVE G. VAGINALIS (test code = 22083) NEGATIVE NEGATIVE T. VAGINALIS (test code = 43010) NEGATIVE NEGATIVE Note: The [facility] VPIII Microbial Identification Testis a DNA probe test intended for use in the detectionand identification of Suze species, Gardnerellavaginalis and Trichomonas vaginalis nucleic acid. RPR REFLEX TO T. PALLIDUM - [id number] 04:11:47* Test Item Value Reference Range Interpretation Comme nts RPR (test code = 53365) NON-REACTIVE NON-REACTIVE RPR TITER (test code = 3500) NOT INDIC. TITER NOT INDIC. HEPATITIS PANEL, [id number] 03:57:15* Test Item Value Reference Range Interpretation Comments HEPATITIS A TOTAL AB (test code = 2725) REACTIVE NON-REACTIVE A HEPATITIS B SURF AG (test code = 2739) NON-REACTIVE NON-REACTIVE HEP B CORE TOTAL AB (test code = 2729) NON-REACTIVE NON-REACTIVE HEPATITIS B SURFACE AB (test code = 2737) NON-REACTIVE NON-REACTIVE HEPATITIS C ANTIBODY (test code = 4675) NON-REACTIVE NON-REACTIVE INTERPRETATION HEPATITIS A: (test code = 2552) (NOTE) Hepatitis A sero logy consistent with past exposure or previousvaccination to hepatitis A virus. No evidence of current acutehepatitis A infection. INTERPRETATION HEPATITIS B: (test code = 40602) (NOTE) Hepatitis B sero logy shows no evidence of past exposure to orcurrent infection with hepatitis B virus. No evidence of hepatitis Bimmunization is identified. INTERPRETATION HEPATITIS C: (test code = 71829) (NOTE) Hepatitis C sero logy shows no evidence of exposure to hepatitisC virus at this time. It can take up to 12 months after exposure tothe hepatitis C virus for antibodies to become detectable in the blood in certain patients. HEPATITIS A [id number] 03:57:15* Test Item Value Reference Range Interpretation Comme nts HEPATITIS A IgM (test code = 2728) NON-REACTIVE NON-REACTIVE UNLESS OTHERW ISE INDICATED, ALL TESTING PERFORMED AT [facility] [address] [place] [address] TELECOM BILLING ANALYST: IRIS GRAJEDA M.D. CLIA NUMBER [id number] [facility] [place]. [id number] HIV 1/2 4TH GEN, RFLX [id number] 03:57:15* Test Item Value Reference Range Interpretation Comme nts HIV 1/2 4TH GEN, RFLX CONF ( test code = 3514) NON-REACTIVE NON-REACTIVE VAGINAL PATHOGENS DNA [id number] 15:53:03* Test Item Value Reference Range Interpretation Comme nts SUZE SPECIES (test code = 46306) NEGATIVE NEGATIVE G. VAGINALIS (test code = ) POSITIVE NEGATIVE A T. VAGINALIS (test code = ) NEGATIVE NEGATIVE Note: The [facility] irm VPIII Microbial Identification Testis a DNA probe test intended for use in the detectionand identification of Suze species, Gardnerellavaginalis and Trichomonas vaginalis nucleic acid. [facility] has important pathology staff changes effective 07/14/2022. New pathology staff will provide uninterrupted, excellent patient care and clinical consultation. See URL: [email or web address]. UNLESS OTHERWISE INDICATED, ALL TESTING PERFORMED AT [facility] [address] [place] [address] TELECOM BILLING ANALYST: IRIS GRAJEDA M.D. CLIA NUMBER [id number] [place]. [id number] CREATININE, PERITONEAL [id number] 15:09:30* Test Item Value Reference Range Interpretation Comme nts CREATININE, PERITONEAL FLUID (test code = 09298) TEST NOT PERFORMED Unable to perform testing due to a laboratory error.Charges adjusted as applicable. SOURCE (test code = ) TEST NOT PERFORMED TESTING REFERRED BY [facility], [address] [address] [place]. [id number] CLIA NO. [id number] [facility]ING [facility] AT [address] [facility], [address] CLIA NO: [id number] VAGINAL PATHOGENS DNA [id number] 13:20:18* Test Item Value Reference Range Interpretation Comme nts SUZE SPECIES (test code = 25080) NEGATIVE NEGATIVE G. VAGINALIS (test code = 38351) POSITIVE NEGATIVE A T. VAGINALIS (test code = 99981) NEGATIVE NEGATIVE Note: The [facility] VPIII Microbial Identification Testis a DNA probe test intended for use in the detectionand identification of Suze species, Gardnerellavaginalis and Trichomonas vaginalis nucleic acid. [facility] has important pathology staff changes effective 07/14/2022. New pathology staff will provide uninterrupted, excellent patient care and clinical consultation. See URL: [email or web address]. UNLESS OTHERWISE INDICATED, ALL TESTING PERFORMED AT [facility] [address] [place] [address] TELECOM BILLING ANALYST: IRIS GRAJEDA M.D. CLIA NUMBER [id number] [place] [id number] CT/NG, NAAT, [id number] 11:12:41* Test Item Value Reference Range Interpretation Comme nts CHLAMYDIA, NAAT, URINE (test code = 79139) NEGATIVE NEGATIVE Testing is perfo rmed with Allyssa MIGUEL ANGEL 6800/8800 systems usingreal-time polymerase chain reaction (PCR) method. A negative result does not exclude low level infection, specimensampling error, or collection error. GONORRHEA, NAAT, URINE (test code = 04591) NEGATIVE NEGATIVE Testing is perfo rmed with Allyssa MIGUEL ANGEL 6800/8800 systems usingreal-time polymerase chain reaction (PCR) method. A negative result does not exclude low level infection, specimensampling error, or collection error. HIV 1/2 4TH GEN, RFLX [id number] 06:38:56* Test Item Value Reference Range Interpretation Comme nts HIV 1/2 4TH GEN, RFLX CONF ( test code = 3514) NON-REACTIVE NON-REACTIVE HEPATITIS PANEL, [id number] 06:38:56* Test Item Value Reference Range Interpretation Comme nts HEPATITIS A IgM (test code = 80388) NON-REACTIVE NON-REACTIVE HEPATITIS B CORE IgM (test code = 4644) NON-REACTIVE NON-REACTIVE HEPATITIS B SURF AG (test code = 2739) NON-REACTIVE NON-REACTIVE HEPATITIS C ANTIBODY (test code = 4675) NON-REACTIVE NON-REACTIVE INTERPRETATION HEPATITIS A: (test code = 2552) (NOTE) Hepatitis A sero logy shows no evidence of acute hepatitis A. INTERPRETATION HEPATITIS B: (test code = 93443) (NOTE) Hepatitis B sero logy shows no evidence of acute hepatitis B andno indication of exposure to hepatitis B virus in the previous karla eight months. INTERPRETATION HEPATITIS C: (test code = 66411) (NOTE) Hepatitis C sero logy shows no evidence of exposure to hepatitisC virus at this time. It can take up to 12 months after exposure tothe hepatitis C virus for antibodies to become detectable in the blood in certain patients. [facility] has important pathology staff changes effective 07/14/2022. New pathology staff will provide uninterrupted, excellent patient care and clinical consultation. See URL: [email or web address]. UNLESS OTHERWISE INDICATED, ALL TESTING PERFORMED AT [facility] [address] [place] [address] TELECOM BILLING ANALYST: JONNY FREY M.D. [place] NUMBER [id number] [facility] [place]. [id number] 05:32:53* Test Item Value Reference Range Interpretation Comme nts RPR RESULT (test code = 3501) NON-REACTIVE NON-REACTIVE RPR TITER (test code = 3500) NOT INDIC. TITER NOT INDIC. PAP TEST, THINPREP, [id number] 15:51:45* Test Item Value Reference Range Interpretation Comme nts SOURCE: (test code = 8001) Cervical SLIDES: (test code = 8011) 1 LMP: (test code = 8021) 02/20/2022 SPECIMEN ADEQUACY: (test code = 39657) (NOTE) Satisfactory for evaluation. Endocervical cells/transformation zone component not identified. INTERPRETATION: (test code = 58977) NILM/NO EPITH. ABNORMALITY;SEE BELOW --- - NEGATIVE FOR INTRAEPITHELIAL LESION OR MALIGNANCY (NILM) ---- TYPING ELEMENT MACHINE OPERATOR : (test code = 8101) RADHA Elliott(ASCP)IA C LOCATION: (test code = 35988) (NOTE) Specimens proces sed [facility], [address] [place] [address], , CLIA: [id number] CPT: (test code = 8140) (NOTE) [address] UNLESS OTH ERWISE INDICATED, COMPUTER AIDED AND TYPING ELEMENT MACHINE OPERATOR SCREENING PERFORMED. The Pap test is a screening test with an inherent, but low probability of error. Your patient should be reminded to consult you immediately if she experiences any suspicious signs or symptoms, regardless of her Pap test result. An alternate report format containing images or consolidated prior Pap history is available as applicable. UNLESS OTHERWISE INDICATED, ALL TESTING PERFORMED [facility] PATHOLOGY [email or web address], [facility]. [address] [place] [address] TELECOM BILLING ANALYST: JONNY FREY M.D. CLIA NUMBER [id number] [place]. [id number] CT/NG, NAAT, [id number] 18:14:26* Test Item Value Reference Range Interpretation Comme nts GONORRHEA, NAAT (test code = 82952) POSITIVE NEGATIVE A IMPORTANT NO BEAR: SEE ANNOUNCEMENT AT [email or web address] Note: Assay methodology is nucleic acid amplification by oven worker mediated amplification (TMA) utilizing the Aptima Combo 2 Assay. CHLAMYDIA, NAAT (test code = 50217) NEGATIVE NEGATIVE IMPORTANT NO BEAR: SEE ANNOUNCEMENT AT [email or web address] Note: Assay methodology is nucleic acid amplification by oven worker mediated amplification (TMA) utilizing the Aptima Combo 2 Assay. TRICHOMONAS, NAAT, [id number] 15:11:22* Test Item Value Reference Range Interpretation Comme nts TRICHOMONAS, NAAT (test code = 50154) NEGATIVE NEGATIVE IMPORTANT NO BEAR: SEE ANNOUNCEMENT AT [email or web address] Note: Assay methodology is nucleic acid amplification by oven worker mediated amplification (TMA) and Hybridization Protection Assay (HPA) utilizing the Neo[employer] APTIMA platform. A negative result does not exclude low level infection, specimensampling error, or collection error. UNLESS OTHERWISE INDICATED, ALL TESTING PERFORMED [facility]. [address] [place] [address] TELECOM BILLING ANALYST: JONNY FREY M.D. CLIA NUMBER [id number] [place]. [id number] 03:09:46* Test Item Value Reference Range Interpretation Comme nts RPR RESULT (test code = 3501) NON-REACTIVE NON-REACTIVE RPR TITER (test code = 3500) NOT INDIC. TITER NOT INDIC. HIV 1/2 4TH GEN, RFLX [id number] 02:57:16* Test Item Value Reference Range Interpretation Comme nts HIV 1/2 4TH GEN, RFLX CONF ( test code = 3514) NON-REACTIVE NON-REACTIVE HEPATITIS PANEL, [id number] 02:57:16* Test Item Value Reference Range Interpretation Comme nts HEPATITIS A IgM (test code = 73589) NON-REACTIVE NON-REACTIVE HEPATITIS B CORE IgM (test code = 4644) NON-REACTIVE NON-REACTIVE HEPATITIS B SURF AG (test code = 2739) NON-REACTIVE NON-REACTIVE HEPATITIS C ANTIBODY (test code = 4675) NON-REACTIVE NON-REACTIVE INTERPRETATION HEPATITIS A: (test code = 2552) (NOTE) Hepatitis A serology shows no evidence of acute hepatitis A. INTERPRETATION HEPATITIS B: (test code = 68419) (NOTE) Hepatitis B serology shows no evidence of acute hepatitis B andno indication of exposure to hepatitis B virus in the previous karla eight months. INTERPRETATION HEPATITIS C: (test code = 05008) (NOTE) Hepatitis C serology shows no evidence of exposure to hepatitisC virus at this time. It can take up to 12 months after exposure tothe hepatitis C virus for antibodies to become detectable in the blood in certain patients. [id number] 00:00:00* Test Item Value Reference Range Interpretation Comme nts RPR RESULT (test code = 3501) NON-REACTIVE RPR TITER (test code = 3500) NOT INDIC. TITER [id number] 00:00:00* Test Item Value Reference Range Interpretation Comme nts RPR RESULT (test code = 3501) NON-REACTIVE RPR TITER (test code = 3500) NOT INDIC. TITER [id number] 00:00:00* Test Item Value Reference Range Interpretation Comme nts RPR RESULT (test code = 3501) NON-REACTIVE RPR TITER (test code = 3500) NOT INDIC. TITER HIV AB/AG COMBO RFLX [id number] 00:00:00* Test Item Value Reference Range Interpretation Comme nts HIV 1/2 4TH GEN, RFLX CONF ( test code = 3514) NON-REACTIVE HIV AB/AG COMBO RFLX [id number] 00:00:00* Test Item Value Reference Range Interpretation Comme nts HIV 1/2 4TH GEN, RFLX CONF ( test code = 3514) NON-REACTIVE ACUTE HEPATITIS [id number] 00:00:00* Test Item Value Reference Range Interpretation Comme nts HEPATITIS A IgM (test code = 09435) NON-REACTIVE HEPATITIS B CORE IgM (test c ode = 4644) NON-REACTIVE HEPATITIS B SURF AG (test co de = 2739) NON-REACTIVE HEPATITIS C ANTIBODY (test c ode = 4675) NON-REACTIVE INTERPRETATION HEPATITIS A: (test code = 2552) (NOTE) INTERPRETATION HEPATITIS B: (test code = 18789) (NOTE) INTERPRETATION HEPATITIS C: (test code = 62007) (NOTE) ACUTE HEPATITIS [id number] 00:00:00* Test Item Value Reference Range Interpretation Comme nts HEPATITIS A IgM (test code = 54126) NON-REACTIVE HEPATITIS B CORE IgM (test c ode = 4644) NON-REACTIVE HEPATITIS B SURF AG (test co de = 2739) NON-REACTIVE HEPATITIS C ANTIBODY (test c ode = 4675) NON-REACTIVE INTERPRETATION HEPATITIS A: (test code = 2552) (NOTE) INTERPRETATION HEPATITIS B: (test code = 24973) (NOTE) INTERPRETATION HEPATITIS C: (test code = 52374) (NOTE) CT/NG, TMA, [id number] 00:00:00* Test Item Value Reference Range Interpretation Comme nts GONORRHEA, NAAT (test code = 63736) POSITIVE CHLAMYDIA, NAAT (test code = 13755) NEGATIVE CT/NG, TMA, [id number] 00:00:00* Test Item Value Reference Range Interpretation Comme nts GONORRHEA, NAAT (test code = 32940) POSITIVE CHLAMYDIA, NAAT (test code = 73345) NEGATIVE TRICHOMONAS, URINE, [id number] 00:00:00* Test Item Value Reference Range Interpretation Comme nts TRICHOMONAS, NAAT (test code = 65891) NEGATIVE TRICHOMONAS, URINE, [id number] 00:00:00* Test Item Value Reference Range Interpretation Comme nts TRICHOMONAS, NAAT (test code = 75419) NEGATIVE [id number] 00:00:00* Test Item Value Reference Range Interpretation Comme nts RPR RESULT (test code = 3501) NON-REACTIVE RPR TITER (test code = 3500) NOT INDIC. TITER [id number] 00:00:00* Test Item Value Reference Range Interpretation Comme nts RPR RESULT (test code = 3501) NON-REACTIVE RPR TITER (test code = 3500) NOT INDIC. TITER [id number] 00:00:00* Test Item Value Reference Range Interpretation Comme nts RPR RESULT (test code = 3501) NON-REACTIVE RPR TITER (test code = 3500) NOT INDIC. TITER HIV AB/AG COMBO RFLX [id number] 00:00:00* Test Item Value Reference Range Interpretation Comme nts HIV 1/2 4TH GEN, RFLX CONF ( test code = 3514) NON-REACTIVE HIV AB/AG COMBO RFLX [id number] 00:00:00* Test Item Value Reference Range Interpretation Comme nts HIV 1/2 4TH GEN, RFLX CONF ( test code = 3514) NON-REACTIVE ACUTE HEPATITIS [id number] 00:00:00* Test Item Value Reference Range Interpretation Comme nts HEPATITIS A IgM (test code = 56199) NON-REACTIVE HEPATITIS B CORE IgM (test c ode = 4644) NON-REACTIVE HEPATITIS B SURF AG (test co de = 2739) NON-REACTIVE HEPATITIS C ANTIBODY (test c ode = 4675) NON-REACTIVE INTERPRETATION HEPATITIS A: (test code = 2552) (NOTE) INTERPRETATION HEPATITIS B: (test code = 10602) (NOTE) INTERPRETATION HEPATITIS C: (test code = 39845) (NOTE) ACUTE HEPATITIS [id number] 00:00:00* Test Item Value Reference Range Interpretation Comme nts HEPATITIS A IgM (test code = 02304) NON-REACTIVE HEPATITIS B CORE IgM (test c ode = 4644) NON-REACTIVE HEPATITIS B SURF AG (test co de = 2739) NON-REACTIVE HEPATITIS C ANTIBODY (test c ode = 4675) NON-REACTIVE INTERPRETATION HEPATITIS A: (test code = 2552) (NOTE) INTERPRETATION HEPATITIS B: (test code = 55903) (NOTE) INTERPRETATION HEPATITIS C: (test code = 05021) (NOTE) CT/NG, TMA, [id number] 00:00:00* Test Item Value Reference Range Interpretation Comme nts GONORRHEA, NAAT (test code = 57993) POSITIVE CHLAMYDIA, NAAT (test code = 53441) NEGATIVE CT/NG, TMA, [id number] 00:00:00* Test Item Value Reference Range Interpretation Comme nts GONORRHEA, NAAT (test code = 40238) POSITIVE CHLAMYDIA, NAAT (test code = 31614) NEGATIVE TRICHOMONAS, URINE, [id number] 00:00:00* Test Item Value Reference Range Interpretation Comme nts TRICHOMONAS, NAAT (test code = 01664) NEGATIVE TRICHOMONAS, URINE, [id number] 00:00:00* Test Item Value Reference Range Interpretation Comme nts TRICHOMONAS, NAAT (test code = 65303) NEGATIVE VAGINAL PATHOGENS DNA [id number] 10:04:37* Test Item Value Reference Range Interpretation Comme nts SUZE SPECIES (test code = 05672) POSITIVE NEGATIVE A G. VAGINALIS (test code = 24939) NEGATIVE NEGATIVE T. VAGINALIS (test code = 59066) NEGATIVE NEGATIVE VAGINAL PATHOGENS DNA [id number] 00:00:00* Test Item Value Reference Range Interpretation Comme nts SUZE SPECIES (test code = 61325) POSITIVE G. VAGINALIS (test code = 03560) NEGATIVE T. VAGINALIS (test code = 15427) NEGATIVE VAGINAL PATHOGENS DNA [id number] 00:00:00* Test Item Value Reference Range Interpretation Comme nts SUZE SPECIES (test code = 35056) POSITIVE G. VAGINALIS (test code = 78405) NEGATIVE T. VAGINALIS (test code = 93317) NEGATIVE VAGINAL PATHOGENS DNA [id number] 00:00:00* Test Item Value Reference Range Interpretation Comme nts SUZE SPECIES (test code = 60999) POSITIVE G. VAGINALIS (test code = 08601) NEGATIVE T. VAGINALIS (test code = 91992) NEGATIVE VAGINAL PATHOGENS DNA [id number] 00:00:00* Test Item Value Reference Range Interpretation Comme nts SUZE SPECIES (test code = 18610) POSITIVE G. VAGINALIS (test code = 92810) NEGATIVE T. VAGINALIS (test code = 66683) NEGATIVE VAGINAL PATHOGENS DNA [id number] 00:00:00* Test Item Value Reference Range Interpretation Comme nts SUZE SPECIES (test code = 02144) POSITIVE G. VAGINALIS (test code = 57097) NEGATIVE T. VAGINALIS (test code = 01504) NEGATIVE VAGINAL PATHOGENS DNA [id number] 00:00:00* Test Item Value Reference Range Interpretation Comme nts SUZE SPECIES (test code = 26956) POSITIVE G. VAGINALIS (test code = 31945) NEGATIVE T. VAGINALIS (test code = 76861) NEGATIVE CHLAMYDIA, NAAT, [id number] 08:21:43* Test Item Value Reference Range Interpretation Comme nts CHLAMYDIA, NAAT (test code = 64993) NEGATIVE NEGATIVE IMPORTANT NO BEAR: SEE ANNOUNCEMENT AT [email or web address] Note: Assay methodology is nucleic acid amplification by oven worker mediated amplification (TMA) utilizing the Aptima Combo 2 Assay. GONORRHEA, NAAT, [id number] 08:21:43* Test Item Value Reference Range Interpretation Comme nts GONORRHEA, NAAT (test code = 99090) NEGATIVE NEGATIVE IMPORTANT NO BEAR: SEE ANNOUNCEMENT AT [email or web address] Note: Assay methodology is nucleic acid amplification by oven worker mediated amplification (TMA) utilizing the Aptima Combo 2 Assay. CHLAMYDIA, AMPLIFIED, [id number] 00:00:00* Test Item Value Reference Range Interpretation Comme nts CHLAMYDIA, NAAT (test code = 01319) NEGATIVE CHLAMYDIA, AMPLIFIED, [id number] 00:00:00* Test Item Value Reference Range Interpretation Comme nts CHLAMYDIA, NAAT (test code = 09789) NEGATIVE GC, AMPLIFIED, [id number] 00:00:00* Test Item Value Reference Range Interpretation Comme nts GONORRHEA, NAAT (test code = 61113) NEGATIVE GC, AMPLIFIED, [id number] 00:00:00* Test Item Value Reference Range Interpretation Comme nts GONORRHEA, NAAT (test code = 40069) NEGATIVE CHLAMYDIA, AMPLIFIED, [id number] 00:00:00* Test Item Value Reference Range Interpretation Comme nts CHLAMYDIA, NAAT (test code = 06075) NEGATIVE CHLAMYDIA, AMPLIFIED, [id number] 00:00:00* Test Item Value Reference Range Interpretation Comme nts CHLAMYDIA, NAAT (test code = 04560) NEGATIVE GC, AMPLIFIED, [id number] 00:00:00* Test Item Value Reference Range Interpretation Comme nts GONORRHEA, NAAT (test code = 84475) NEGATIVE GC, AMPLIFIED, [id number] 00:00:00* Test Item Value Reference Range Interpretation Comme nts GONORRHEA, NAAT (test code = 76716) NEGATIVE CHLAMYDIA, AMPLIFIED, [id number] 00:00:00* Test Item Value Reference Range Interpretation Comme nts CHLAMYDIA, NAAT (test code = 77104) NEGATIVE CHLAMYDIA, AMPLIFIED, [id number] 00:00:00* Test Item Value Reference Range Interpretation Comme nts CHLAMYDIA, NAAT (test code = 17703) NEGATIVE GC, AMPLIFIED, [id number] 00:00:00* Test Item Value Reference Range Interpretation Comme nts GONORRHEA, NAAT (test code = 13783) NEGATIVE GC, AMPLIFIED, [id number] 00:00:00* Test Item Value Reference Range Interpretation Comme nts GONORRHEA, NAAT (test code = 05358) NEGATIVE HEMOGLOBIN [id number] 06:10:22* Test Item Value Reference Range Interpretation Comme nts HEMOGLOBIN A1c (test code = 66763) 5.2 % 4.2-5.6 CBC W/AUTO DIFF WITH [id number] 05:31:54* Test Item Value Reference Range Interpretation Comme nts WBC (test code = 1001) 8.3 K/UL 3.5-11.0 RBC (test code = 1002) 4.48 M/UL 3.80-5.40 HEMOGLOBIN (test code = 1003) 14.1 G/DL 11.5-15.5 HEMATOCRIT (test code = 1004) 40.2 % 34.0-45.0 MCV (test code = 1005) 89.7 fL 80.0-99.0 MCH (test code = 1006) 31.5 PG 25.0-33.0 MCHC (test code = 1007) 35.1 G/DL 31.0-36.0 RDW (test code = 1038) 11.7 % 11.5-15.0 NEUTROPHILS (test code = 1008) 71.0 % LYMPHOCYTES (test code = 1010) 20.5 % MONOCYTES (test code = 1011) 6.5 % EOSINOPHILS (test code = 1012) 0.8 % BASOPHILS (test code = 1013) 0.8 % IMMATURE GRANULOCYTES (test code = 1036) 0.4 % NUCLEATED RBCS (test code = 1065) 0.0 /100 WBC'S See_Comment [Automated messa ge] The system which generated this result transmitted reference range: 0.0. The reference range was not used to interpret this result as normal/abnormal. PLATELET COUNT (test code = 1015) 379 K/UL 130-400 ABSOLUTE NEUTROPHILS (test code = 1066) 5.85 K/UL 1.50-7.50 ABSOLUTE LYMPHOCYTES (test code = 1067) 1.69 K/UL 1.00-4.00 ABSOLUTE MONOCYTES (test code = 1068) 0.54 K/UL 0.20-1.00 ABSOLUTE EOSINOPHILS (test code = 1040) 0.07 K/UL 0.00-0.50 ABSOLUTE BASOPHILS (test code = 1069) 0.07 K/UL 0.00-0.20 ABS IMMATURE GRANULOCYTES (test code = 1020) 0.03 K/UL 0.00-0.10 ABS NUCLEATED RBCS (test code = 48706) 0.00 K/UL 0.00-0.11 HIV 1/2 4TH GEN, RFLX [id number] 04:04:35* Test Item Value Reference Range Interpretation Comme nts HIV 1/2 4TH GEN, RFLX CONF ( test code = 3514) NON-REACTIVE NON-REACTIVE HEPATITIS PANEL, [id number] 04:04:35* Test Item Value Reference Range Interpretation Comme nts HEPATITIS A IgM (test code = 56382) NON-REACTIVE NON-REACTIVE HEPATITIS B CORE IgM (test code = 4644) NON-REACTIVE NON-REACTIVE HEPATITIS B SURF AG (test code = 2739) NON-REACTIVE NON-REACTIVE HEPATITIS C ANTIBODY (test code = 4675) NON-REACTIVE NON-REACTIVE INTERPRETATION HEPATITIS A: (test code = 2552) (NOTE) Hepatitis A serology shows no evidence of acute hepatitis A. INTERPRETATION HEPATITIS B: (test code = 23638) (NOTE) Hepatitis B serology shows no evidence of acute hepatitis B andno indication of exposure to hepatitis B virus in the previous karla eight months. INTERPRETATION HEPATITIS C: (test code = 86262) (NOTE) Hepatitis C serology shows no evidence of exposure to hepatitisC virus at this time. It can take up to 12 months after exposure tothe hepatitis C virus for antibodies to become detectable in the blood in certain patients. [id number] 02:50:30* Test Item Value Reference Range Interpretation Comme nts RPR RESULT (test code = 3501) NON-REACTIVE NON-REACTIVE RPR TITER (test code = 3500) NOT INDIC. TITER NOT INDIC. UNLESS OTHERWISE INDICATED, ALL TESTING PERFORMED [facility] [address] [place] [address] TELECOM BILLING ANALYST: JONNY FREY M.D. CLIA NUMBER [id number] [facility] [place]. [id number] CBC W/AUTO [id number] 00:00:00* Test Item Value Reference Range Interpretation Comme nts WBC (test code = 1001) 8.3 K/UL [...] = 1013) 0.8 % IMMATURE GRANULOCYTES (test code = 1036) 0.4 % NUCLEATED RBCS (test code = 1065) 0.0 /100WBC'S PLATELET COUNT (test code = 1015) 379 K/UL ABSOLUTE NEUTROPHILS (test c ode = 1066) 5.85 K/UL ABSOLUTE LYMPHOCYTES (test c ode = 1067) 1.69 K/UL ABSOLUTE MONOCYTES (test cod e = 1068) 0.54 K/UL ABSOLUTE EOSINOPHILS (test c ode = 1040) 0.07 K/UL ABSOLUTE BASOPHILS (test cod e = 1069) 0.07 K/UL ABS IMMATURE GRANULOCYTES (t est code = 1020) 0.03 K/UL ABS NUCLEATED RBCS (test cod e = 73163) 0.00 K/UL CBC W/AUTO [id number] 00:00:00* Test Item Value Reference Range Interpretation Comme nts WBC (test code = 1001) 8.3 K/UL [...] = 1013) 0.8 % IMMATURE GRANULOCYTES (test code = 1036) 0.4 % NUCLEATED RBCS (test code = 1065) 0.0 /100WBC'S PLATELET COUNT (test code = 1015) 379 K/UL ABSOLUTE NEUTROPHILS (test c ode = 1066) 5.85 K/UL ABSOLUTE LYMPHOCYTES (test c ode = 1067) 1.69 K/UL ABSOLUTE MONOCYTES (test cod e = 1068) 0.54 K/UL ABSOLUTE EOSINOPHILS (test c ode = 1040) 0.07 K/UL ABSOLUTE BASOPHILS (test cod e = 1069) 0.07 K/UL ABS IMMATURE GRANULOCYTES (t est code = 1020) 0.03 K/UL ABS NUCLEATED RBCS (test cod e = 98853) 0.00 K/UL CBC W/AUTO [id number] 00:00:00* Test Item Value Reference Range Interpretation Comme nts WBC (test code = 1001) 8.3 K/UL [...] = 1013) 0.8 % IMMATURE GRANULOCYTES (test code = 1036) 0.4 % NUCLEATED RBCS (test code = 1065) 0.0 /100WBC'S PLATELET COUNT (test code = 1015) 379 K/UL ABSOLUTE NEUTROPHILS (test c ode = 1066) 5.85 K/UL ABSOLUTE LYMPHOCYTES (test c ode = 1067) 1.69 K/UL ABSOLUTE MONOCYTES (test cod e = 1068) 0.54 K/UL ABSOLUTE EOSINOPHILS (test c ode = 1040) 0.07 K/UL ABSOLUTE BASOPHILS (test cod e = 1069) 0.07 K/UL ABS IMMATURE GRANULOCYTES (t est code = 1020) 0.03 K/UL ABS NUCLEATED RBCS (test cod e = 60334) 0.00 K/UL HEMOGLOBIN [id number] 00:00:00* Test Item Value Reference Range Interpretation Comme nts HEMOGLOBIN A1c (test code = 67325) 5.2 % HEMOGLOBIN [id number] 00:00:00* Test Item Value Reference Range Interpretation Comme nts HEMOGLOBIN A1c (test code = 15291) 5.2 % HEMOGLOBIN [id number] 00:00:00* Test Item Value Reference Range Interpretation Comme nts HEMOGLOBIN A1c (test code = 56278) 5.2 % HIV AB/AG COMBO RFLX [id number] 00:00:00* Test Item Value Reference Range Interpretation Comme nts HIV 1/2 4TH GEN, RFLX CONF ( test code = 3514) NON-REACTIVE HIV AB/AG COMBO RFLX [id number] 00:00:00* Test Item Value Reference Range Interpretation Comme nts HIV 1/2 4TH GEN, RFLX CONF ( test code = 3514) NON-REACTIVE ACUTE HEPATITIS [id number] 00:00:00* Test Item Value Reference Range Interpretation Comme nts HEPATITIS A IgM (test code = 99155) NON-REACTIVE HEPATITIS B CORE IgM (test c ode = 4644) NON-REACTIVE HEPATITIS B SURF AG (test co de = 2739) NON-REACTIVE HEPATITIS C ANTIBODY (test c ode = 4675) NON-REACTIVE INTERPRETATION HEPATITIS A: (test code = 2552) (NOTE) INTERPRETATION HEPATITIS B: (test code = 87707) (NOTE) INTERPRETATION HEPATITIS C: (test code = 26150) (NOTE) ACUTE HEPATITIS [id number] 00:00:00* Test Item Value Reference Range Interpretation Comme nts HEPATITIS A IgM (test code = 56024) NON-REACTIVE HEPATITIS B CORE IgM (test c ode = 4644) NON-REACTIVE HEPATITIS B SURF AG (test co de = 2739) NON-REACTIVE HEPATITIS C ANTIBODY (test c ode = 4675) NON-REACTIVE INTERPRETATION HEPATITIS A: (test code = 2552) (NOTE) INTERPRETATION HEPATITIS B: (test code = 56920) (NOTE) INTERPRETATION HEPATITIS C: (test code = 91483) (NOTE) [id number] 00:00:00* Test Item Value Reference Range Interpretation Comme nts RPR RESULT (test code = 3501) NON-REACTIVE RPR TITER (test code = 3500) NOT INDIC. TITER [id number] 00:00:00* Test Item Value Reference Range Interpretation Comme nts RPR RESULT (test code = 3501) NON-REACTIVE RPR TITER (test code = 3500) NOT INDIC. TITER [id number] 00:00:00* Test Item Value Reference Range Interpretation Comme nts RPR RESULT (test code = 3501) NON-REACTIVE RPR TITER (test code = 3500) NOT INDIC. TITER CBC W/AUTO [id number] 00:00:00* Test Item Value Reference Range Interpretation Comme nts WBC (test code = 1001) 8.3 K/UL [...] = 1013) 0.8 % IMMATURE GRANULOCYTES (test code = 1036) 0.4 % NUCLEATED RBCS (test code = 1065) 0.0 /100WBC'S PLATELET COUNT (test code = 1015) 379 K/UL ABSOLUTE NEUTROPHILS (test c ode = 1066) 5.85 K/UL ABSOLUTE LYMPHOCYTES (test c ode = 1067) 1.69 K/UL ABSOLUTE MONOCYTES (test cod e = 1068) 0.54 K/UL ABSOLUTE EOSINOPHILS (test c ode = 1040) 0.07 K/UL ABSOLUTE BASOPHILS (test cod e = 1069) 0.07 K/UL ABS IMMATURE GRANULOCYTES (t est code = 1020) 0.03 K/UL ABS NUCLEATED RBCS (test cod e = 11658) 0.00 K/UL CBC W/AUTO [id number] 00:00:00* Test Item Value Reference Range Interpretation Comme nts WBC (test code = 1001) 8.3 K/UL [...] = 1013) 0.8 % IMMATURE GRANULOCYTES (test code = 1036) 0.4 % NUCLEATED RBCS (test code = 1065) 0.0 /100WBC'S PLATELET COUNT (test code = 1015) 379 K/UL ABSOLUTE NEUTROPHILS (test c ode = 1066) 5.85 K/UL ABSOLUTE LYMPHOCYTES (test c ode = 1067) 1.69 K/UL ABSOLUTE MONOCYTES (test cod e = 1068) 0.54 K/UL ABSOLUTE EOSINOPHILS (test c ode = 1040) 0.07 K/UL ABSOLUTE BASOPHILS (test cod e = 1069) 0.07 K/UL ABS IMMATURE GRANULOCYTES (t est code = 1020) 0.03 K/UL ABS NUCLEATED RBCS (test cod e = 45737) 0.00 K/UL CBC W/AUTO [id number] 00:00:00* Test Item Value Reference Range Interpretation Comme nts WBC (test code = 1001) 8.3 K/UL [...] = 1013) 0.8 % IMMATURE GRANULOCYTES (test code = 1036) 0.4 % NUCLEATED RBCS (test code = 1065) 0.0 /100WBC'S PLATELET COUNT (test code = 1015) 379 K/UL ABSOLUTE NEUTROPHILS (test c ode = 1066) 5.85 K/UL ABSOLUTE LYMPHOCYTES (test c ode = 1067) 1.69 K/UL ABSOLUTE MONOCYTES (test cod e = 1068) 0.54 K/UL ABSOLUTE EOSINOPHILS (test c ode = 1040) 0.07 K/UL ABSOLUTE BASOPHILS (test cod e = 1069) 0.07 K/UL ABS IMMATURE GRANULOCYTES (t est code = 1020) 0.03 K/UL ABS NUCLEATED RBCS (test cod e = 69607) 0.00 K/UL HEMOGLOBIN [id number] 00:00:00* Test Item Value Reference Range Interpretation Comme nts HEMOGLOBIN A1c (test code = 90792) 5.2 % HEMOGLOBIN [id number] 00:00:00* Test Item Value Reference Range Interpretation Comme nts HEMOGLOBIN A1c (test code = 86041) 5.2 % HEMOGLOBIN [id number] 00:00:00* Test Item Value Reference Range Interpretation Comme nts HEMOGLOBIN A1c (test code = 41498) 5.2 % HIV AB/AG COMBO RFLX [id number] 00:00:00* Test Item Value Reference Range Interpretation Comme nts HIV 1/2 4TH GEN, RFLX CONF ( test code = 3514) NON-REACTIVE HIV AB/AG COMBO RFLX [id number] 00:00:00* Test Item Value Reference Range Interpretation Comme nts HIV 1/2 4TH GEN, RFLX CONF ( test code = 3514) NON-REACTIVE ACUTE HEPATITIS [id number] 00:00:00* Test Item Value Reference Range Interpretation Comme nts HEPATITIS A IgM (test code = 28710) NON-REACTIVE HEPATITIS B CORE IgM (test c ode = 4644) NON-REACTIVE HEPATITIS B SURF AG (test co de = 2739) NON-REACTIVE HEPATITIS C ANTIBODY (test c ode = 4675) NON-REACTIVE INTERPRETATION HEPATITIS A: (test code = 2552) (NOTE) INTERPRETATION HEPATITIS B: (test code = 87693) (NOTE) INTERPRETATION HEPATITIS C: (test code = 96893) (NOTE) ACUTE HEPATITIS [id number] 00:00:00* Test Item Value Reference Range Interpretation Comme nts HEPATITIS A IgM (test code = 54296) NON-REACTIVE HEPATITIS B CORE IgM (test c ode = 4644) NON-REACTIVE HEPATITIS B SURF AG (test co de = 2739) NON-REACTIVE HEPATITIS C ANTIBODY (test c ode = 4675) NON-REACTIVE INTERPRETATION HEPATITIS A: (test code = 2552) (NOTE) INTERPRETATION HEPATITIS B: (test code = 51019) (NOTE) INTERPRETATION HEPATITIS C: (test code = 56538) (NOTE) [id number] 00:00:00* Test Item Value Reference Range Interpretation Comme nts RPR RESULT (test code = 3501) NON-REACTIVE RPR TITER (test code = 3500) NOT INDIC. TITER [id number] 00:00:00* Test Item Value Reference Range Interpretation Comme nts RPR RESULT (test code = 3501) NON-REACTIVE RPR TITER (test code = 3500) NOT INDIC. TITER [id number] 00:00:00* Test Item Value Reference Range Interpretation Comme nts RPR RESULT (test code = 3501) NON-REACTIVE RPR TITER (test code = 3500) NOT INDIC. TITER CBC W/AUTO [id number] 00:00:00* Test Item Value Reference Range Interpretation Comme nts WBC (test code = 1001) 8.3 K/UL [...] = 1013) 0.8 % IMMATURE GRANULOCYTES (test code = 1036) 0.4 % NUCLEATED RBCS (test code = 1065) 0.0 /100WBC'S PLATELET COUNT (test code = 1015) 379 K/UL ABSOLUTE NEUTROPHILS (test c ode = 1066) 5.85 K/UL ABSOLUTE LYMPHOCYTES (test c ode = 1067) 1.69 K/UL ABSOLUTE MONOCYTES (test cod e = 1068) 0.54 K/UL ABSOLUTE EOSINOPHILS (test c ode = 1040) 0.07 K/UL ABSOLUTE BASOPHILS (test cod e = 1069) 0.07 K/UL ABS IMMATURE GRANULOCYTES (t est code = 1020) 0.03 K/UL ABS NUCLEATED RBCS (test cod e = 20081) 0.00 K/UL CBC W/AUTO [id number] 00:00:00* Test Item Value Reference Range Interpretation Comme nts WBC (test code = 1001) 8.3 K/UL [...] = 1013) 0.8 % IMMATURE GRANULOCYTES (test code = 1036) 0.4 % NUCLEATED RBCS (test code = 1065) 0.0 /100WBC'S PLATELET COUNT (test code = 1015) 379 K/UL ABSOLUTE NEUTROPHILS (test c ode = 1066) 5.85 K/UL ABSOLUTE LYMPHOCYTES (test c ode = 1067) 1.69 K/UL ABSOLUTE MONOCYTES (test cod e = 1068) 0.54 K/UL ABSOLUTE EOSINOPHILS (test c ode = 1040) 0.07 K/UL ABSOLUTE BASOPHILS (test cod e = 1069) 0.07 K/UL ABS IMMATURE GRANULOCYTES (t est code = 1020) 0.03 K/UL ABS NUCLEATED RBCS (test cod e = 64973) 0.00 K/UL CBC W/AUTO [id number] 00:00:00* Test Item Value Reference Range Interpretation Comme nts WBC (test code = 1001) 8.3 K/UL [...] = 1013) 0.8 % IMMATURE GRANULOCYTES (test code = 1036) 0.4 % NUCLEATED RBCS (test code = 1065) 0.0 /100WBC'S PLATELET COUNT (test code = 1015) 379 K/UL ABSOLUTE NEUTROPHILS (test c ode = 1066) 5.85 K/UL ABSOLUTE LYMPHOCYTES (test c ode = 1067) 1.69 K/UL ABSOLUTE MONOCYTES (test cod e = 1068) 0.54 K/UL ABSOLUTE EOSINOPHILS (test c ode = 1040) 0.07 K/UL ABSOLUTE BASOPHILS (test cod e = 1069) 0.07 K/UL ABS IMMATURE GRANULOCYTES (t est code = 1020) 0.03 K/UL ABS NUCLEATED RBCS (test cod e = 61773) 0.00 K/UL HEMOGLOBIN [id number] 00:00:00* Test Item Value Reference Range Interpretation Comme nts HEMOGLOBIN A1c (test code = 76464) 5.2 % HEMOGLOBIN [id number] 00:00:00* Test Item Value Reference Range Interpretation Comme nts HEMOGLOBIN A1c (test code = 37814) 5.2 % HEMOGLOBIN [id number] 00:00:00* Test Item Value Reference Range Interpretation Comme nts HEMOGLOBIN A1c (test code = 14447) 5.2 % HIV AB/AG COMBO RFLX [id number] 00:00:00* Test Item Value Reference Range Interpretation Comme nts HIV 1/2 4TH GEN, RFLX CONF ( test code = 3514) NON-REACTIVE HIV AB/AG COMBO RFLX [id number] 00:00:00* Test Item Value Reference Range Interpretation Comme nts HIV 1/2 4TH GEN, RFLX CONF ( test code = 3514) NON-REACTIVE ACUTE HEPATITIS [id number] 00:00:00* Test Item Value Reference Range Interpretation Comme nts HEPATITIS A IgM (test code = 06716) NON-REACTIVE HEPATITIS B CORE IgM (test c ode = 4644) NON-REACTIVE HEPATITIS B SURF AG (test co de = 2739) NON-REACTIVE HEPATITIS C ANTIBODY (test c ode = 4675) NON-REACTIVE INTERPRETATION HEPATITIS A: (test code = 2552) (NOTE) INTERPRETATION HEPATITIS B: (test code = 65445) (NOTE) INTERPRETATION HEPATITIS C: (test code = 30748) (NOTE) ACUTE HEPATITIS [id number] 00:00:00* Test Item Value Reference Range Interpretation Comme nts HEPATITIS A IgM (test code = 81301) NON-REACTIVE HEPATITIS B CORE IgM (test c ode = 4644) NON-REACTIVE HEPATITIS B SURF AG (test co de = 2739) NON-REACTIVE HEPATITIS C ANTIBODY (test c ode = 4675) NON-REACTIVE INTERPRETATION HEPATITIS A: (test code = 2552) (NOTE) INTERPRETATION HEPATITIS B: (test code = 83501) (NOTE) INTERPRETATION HEPATITIS C: (test code = 63462) (NOTE) [id number] 00:00:00* Test Item Value Reference Range Interpretation Comme nts RPR RESULT (test code = 3501) NON-REACTIVE RPR TITER (test code = 3500) NOT INDIC. TITER [id number] 00:00:00* Test Item Value Reference Range Interpretation Comme nts RPR RESULT (test code = 3501) NON-REACTIVE RPR TITER (test code = 3500) NOT INDIC. TITER [id number] 00:00:00* Test Item Value Reference Range Interpretation Comme nts RPR RESULT (test code = 3501) NON-REACTIVE RPR TITER (test code = 3500) NOT INDIC. TITER CT/NG, NAAT, [id number] 18:09:18* Test Item Value Reference Range Interpretation Comme nts GONORRHEA, NAAT (test code = 45839) NEGATIVE NEGATIVE IMPORTANT NO BEAR: SEE ANNOUNCEMENT AT [email or web address] Note: Assay methodology is nucleic acid amplification by oven worker mediated amplification (TMA) utilizing the Aptima Combo 2 Assay. CHLAMYDIA, NAAT (test code = 78497) NEGATIVE NEGATIVE IMPORTANT NO BEAR: SEE ANNOUNCEMENT AT [email or web address] [email or web address] Note: Assay methodology is nucleic acid amplification by oven worker mediated amplification (TMA) utilizing the [employer] Formula Combo 2 Assay. VAGINAL PATHOGENS DNA [id number] 15:05:08* Test Item Value Reference Range Interpretation Comme nts SUZE SPECIES (test code = 16358) NEGATIVE NEGATIVE G. VAGINALIS (test code = 92437) POSITIVE NEGATIVE A T. VAGINALIS (test code = 30264) NEGATIVE NEGATIVE [id number] 05:20:25* Test Item Value Reference Range Interpretation Comme nts RPR RESULT (test code = 3501) NON-REACTIVE NON-REACTIVE RPR TITER (test code = 3500) NOT INDIC. TITER NOT INDIC. UNLESS OTHERWISE INDICATED, ALL TESTING [facility] [address] [place] [address] TELECOM BILLING ANALYST: JONNY FREY M.D. CLIA NUMBER [id number] [facility] [place]. [id number] HIV 1/2 4TH GEN, RFLX [id number] 04:05:17* Test Item Value Reference Range Interpretation Comme nts HIV 1/2 4TH GEN, RFLX CONF ( test code = 3514) NON-REACTIVE NON-REACTIVE HEPATITIS PANEL, [id number] 04:05:17* Test Item Value Reference Range Interpretation Comme nts HEPATITIS A IgM (test code = 91065) NON-REACTIVE NON-REACTIVE HEPATITIS B CORE IgM (test code = 4644) NON-REACTIVE NON-REACTIVE HEPATITIS B SURF AG (test code = 2739) NON-REACTIVE NON-REACTIVE HEPATITIS C ANTIBODY (test code = 4675) NON-REACTIVE NON-REACTIVE INTERPRETATION HEPATITIS A: (test code = 2552) (NOTE) Hepatitis A serology shows no evidence of acute hepatitis A. INTERPRETATION HEPATITIS B: (test code = 62872) (NOTE) Hepatitis B serology shows no evidence of acute hepatitis B andno indication of exposure to hepatitis B virus in the previous karla eight months. INTERPRETATION HEPATITIS C: (test code = 89312) (NOTE) Hepatitis C serology shows no evidence of exposure to hepatitisC virus at this time. It can take up to 12 months after exposure tothe hepatitis C virus for antibodies to become detectable in the blood in certain patients. HIV AB/AG COMBO RFLX [id number] 00:00:00* Test Item Value Reference Range Interpretation Comme nts HIV 1/2 4TH GEN, RFLX CONF ( test code = 3514) NON-REACTIVE HIV AB/AG COMBO RFLX [id number] 00:00:00* Test Item Value Reference Range Interpretation Comme nts HIV 1/2 4TH GEN, RFLX CONF ( test code = 3514) NON-REACTIVE ACUTE HEPATITIS [id number] 00:00:00* Test Item Value Reference Range Interpretation Comme nts HEPATITIS A IgM (test code = 39032) NON-REACTIVE HEPATITIS B CORE IgM (test c ode = 4644) NON-REACTIVE HEPATITIS B SURF AG (test co de = 2739) NON-REACTIVE HEPATITIS C ANTIBODY (test c ode = 4675) NON-REACTIVE INTERPRETATION HEPATITIS A: (test code = 2552) (NOTE) INTERPRETATION HEPATITIS B: (test code = 42876) (NOTE) INTERPRETATION HEPATITIS C: (test code = 11086) (NOTE) ACUTE HEPATITIS [id number] 00:00:00* Test Item Value Reference Range Interpretation Comme nts HEPATITIS A IgM (test code = 92266) NON-REACTIVE HEPATITIS B CORE IgM (test c ode = 4644) NON-REACTIVE HEPATITIS B SURF AG (test co de = 2739) NON-REACTIVE HEPATITIS C ANTIBODY (test c ode = 4675) NON-REACTIVE INTERPRETATION HEPATITIS A: (test code = 2552) (NOTE) INTERPRETATION HEPATITIS B: (test code = 61038) (NOTE) INTERPRETATION HEPATITIS C: (test code = 84084) (NOTE) GC AND CHLAMYDIA, AMPLIFIED, [id number] 00:00:00* Test Item Value Reference Range Interpretation Comme nts GONORRHEA, NAAT (test code = 00011) NEGATIVE CHLAMYDIA, NAAT (test code = 03829) NEGATIVE GC AND CHLAMYDIA, AMPLIFIED, [id number] 00:00:00* Test Item Value Reference Range Interpretation Comme nts GONORRHEA, NAAT (test code = 08187) NEGATIVE CHLAMYDIA, NAAT (test code = 87784) NEGATIVE [id number] 00:00:00* Test Item Value Reference Range Interpretation Comme nts RPR RESULT (test code = 3501) NON-REACTIVE RPR TITER (test code = 3500) NOT INDIC. TITER [id number] 00:00:00* Test Item Value Reference Range Interpretation Comme nts RPR RESULT (test code = 3501) NON-REACTIVE RPR TITER (test code = 3500) NOT INDIC. TITER [id number] 00:00:00* Test Item Value Reference Range Interpretation Comme nts RPR RESULT (test code = 3501) NON-REACTIVE RPR TITER (test code = 3500) NOT INDIC. TITER VAGINAL PATHOGENS DNA [id number] 00:00:00* Test Item Value Reference Range Interpretation Comme nts SUZE SPECIES (test code = 88317) NEGATIVE G. VAGINALIS (test code = 38941) POSITIVE T. VAGINALIS (test code = 51262) NEGATIVE VAGINAL PATHOGENS DNA [id number] 00:00:00* Test Item Value Reference Range Interpretation Comme nts SUZE SPECIES (test code = 95472) NEGATIVE G. VAGINALIS (test code = 43683) POSITIVE T. VAGINALIS (test code = 23710) NEGATIVE HIV AB/AG COMBO RFLX [id number] 00:00:00* Test Item Value Reference Range Interpretation Comme nts HIV 1/2 4TH GEN, RFLX CONF ( test code = 3514) NON-REACTIVE HIV AB/AG COMBO RFLX [id number] 00:00:00* Test Item Value Reference Range Interpretation Comme nts HIV 1/2 4TH GEN, RFLX CONF ( test code = 3514) NON-REACTIVE ACUTE HEPATITIS [id number] 00:00:00* Test Item Value Reference Range Interpretation Comme nts HEPATITIS A IgM (test code = 81068) NON-REACTIVE HEPATITIS B CORE IgM (test c ode = 4644) NON-REACTIVE HEPATITIS B SURF AG (test co de = 2739) NON-REACTIVE HEPATITIS C ANTIBODY (test c ode = 4675) NON-REACTIVE INTERPRETATION HEPATITIS A: (test code = 2552) (NOTE) INTERPRETATION HEPATITIS B: (test code = 32788) (NOTE) INTERPRETATION HEPATITIS C: (test code = 67066) (NOTE) ACUTE HEPATITIS [id number] 00:00:00* Test Item Value Reference Range Interpretation Comme nts HEPATITIS A IgM (test code = 29724) NON-REACTIVE HEPATITIS B CORE IgM (test c ode = 4644) NON-REACTIVE HEPATITIS B SURF AG (test co de = 2739) NON-REACTIVE HEPATITIS C ANTIBODY (test c ode = 4675) NON-REACTIVE INTERPRETATION HEPATITIS A: (test code = 2552) (NOTE) INTERPRETATION HEPATITIS B: (test code = 96867) (NOTE) INTERPRETATION HEPATITIS C: (test code = 10193) (NOTE) GC AND CHLAMYDIA, AMPLIFIED, [id number] 00:00:00* Test Item Value Reference Range Interpretation Comme nts GONORRHEA, NAAT (test code = 38630) NEGATIVE CHLAMYDIA, NAAT (test code = 99216) NEGATIVE GC AND CHLAMYDIA, AMPLIFIED, [id number] 00:00:00* Test Item Value Reference Range Interpretation Comme nts GONORRHEA, NAAT (test code = 73757) NEGATIVE CHLAMYDIA, NAAT (test code = 77685) NEGATIVE [id number] 00:00:00* Test Item Value Reference Range Interpretation Comme nts RPR RESULT (test code = 3501) NON-REACTIVE RPR TITER (test code = 3500) NOT INDIC. TITER [id number] 00:00:00* Test Item Value Reference Range Interpretation Comme nts RPR RESULT (test code = 3501) NON-REACTIVE RPR TITER (test code = 3500) NOT INDIC. TITER [id number] 00:00:00* Test Item Value Reference Range Interpretation Comme nts RPR RESULT (test code = 3501) NON-REACTIVE RPR TITER (test code = 3500) NOT INDIC. TITER VAGINAL PATHOGENS DNA [id number] 00:00:00* Test Item Value Reference Range Interpretation Comme nts SUZE SPECIES (test code = ) NEGATIVE G. VAGINALIS (test code = 03128) POSITIVE T. VAGINALIS (test code = 47904) NEGATIVE VAGINAL PATHOGENS DNA [id number] 00:00:00* Test Item Value Reference Range Interpretation Comme nts SUZE SPECIES (test code = ) NEGATIVE G. VAGINALIS (test code = 89425) POSITIVE T. VAGINALIS (test code = 42022) NEGATIVE HIV AB/AG COMBO RFLX [id number] 00:00:00* Test Item Value Reference Range Interpretation Comme nts HIV 1/2 4TH GEN, RFLX CONF ( test code = 3514) NON-REACTIVE HIV AB/AG COMBO RFLX [id number] 00:00:00* Test Item Value Reference Range Interpretation Comme nts HIV 1/2 4TH GEN, RFLX CONF ( test code = 3514) NON-REACTIVE ACUTE HEPATITIS [id number] 00:00:00* Test Item Value Reference Range Interpretation Comme nts HEPATITIS A IgM (test code = 58704) NON-REACTIVE HEPATITIS B CORE IgM (test c ode = 4644) NON-REACTIVE HEPATITIS B SURF AG (test co de = 2739) NON-REACTIVE HEPATITIS C ANTIBODY (test c ode = 4675) NON-REACTIVE INTERPRETATION HEPATITIS A: (test code = 2552) (NOTE) INTERPRETATION HEPATITIS B: (test code = 13123) (NOTE) INTERPRETATION HEPATITIS C: (test code = 63117) (NOTE) ACUTE HEPATITIS [id number] 00:00:00* Test Item Value Reference Range Interpretation Comme nts HEPATITIS A IgM (test code = 66440) NON-REACTIVE HEPATITIS B CORE IgM (test c ode = 4644) NON-REACTIVE HEPATITIS B SURF AG (test co de = 2739) NON-REACTIVE HEPATITIS C ANTIBODY (test c ode = 4675) NON-REACTIVE INTERPRETATION HEPATITIS A: (test code = 2552) (NOTE) INTERPRETATION HEPATITIS B: (test code = 52607) (NOTE) INTERPRETATION HEPATITIS C: (test code = 81250) (NOTE) GC AND CHLAMYDIA, AMPLIFIED, [id number] 00:00:00* Test Item Value Reference Range Interpretation Comme nts GONORRHEA, NAAT (test code = 35988) NEGATIVE CHLAMYDIA, NAAT (test code = 22318) NEGATIVE GC AND CHLAMYDIA, AMPLIFIED, [id number] 00:00:00* Test Item Value Reference Range Interpretation Comme nts GONORRHEA, NAAT (test code = 12831) NEGATIVE CHLAMYDIA, NAAT (test code = 00311) NEGATIVE [id number] 00:00:00* Test Item Value Reference Range Interpretation Comme nts RPR RESULT (test code = 3501) NON-REACTIVE RPR TITER (test code = 3500) NOT INDIC. TITER [id number] 00:00:00* Test Item Value Reference Range Interpretation Comme nts RPR RESULT (test code = 3501) NON-REACTIVE RPR TITER (test code = 3500) NOT INDIC. TITER [id number] 00:00:00* Test Item Value Reference Range Interpretation Comme nts RPR RESULT (test code = 3501) NON-REACTIVE RPR TITER (test code = 3500) NOT INDIC. TITER VAGINAL PATHOGENS DNA [id number] 00:00:00* Test Item Value Reference Range Interpretation Comme nts SUZE SPECIES (test code = 34467) NEGATIVE G. VAGINALIS (test code = 54013) POSITIVE T. VAGINALIS (test code = 24533) NEGATIVE VAGINAL PATHOGENS DNA [id number] 00:00:00* Test Item Value Reference Range Interpretation Comme nts SUZE SPECIES (test code = 75450) NEGATIVE G. VAGINALIS (test code = 79829) POSITIVE T. VAGINALIS (test code = 67656) NEGATIVE SARS-CoV-2 (COVID-19), RT-[id number] 15:37:51* Test Item Value Reference Range Interpretation Comments SARS-CoV-2 INTERPRETATION (test code = 22469) NEGATIVE SEE NOTE SARS-CoV-2 R NA NOT DETECTEDNegative results do not preclude SARS-CoV-2 infection and should notbe used as the sole basis for patient management decisions. Negativeresults must be combined with clinical observations, patient history,and epidemiological information. Optimum specimen types and timingfor peak viral levels during infections caused by SARS-CoV-2 have notbeen determined. Collection of multiple specimens or types ofspecimens may be necessary to detect virus. Improper specimencollection and handling, sequence variability under primers/probes,or organism present below the limit of detection may lead to falsenegative results. Positive and negative predictive values oftesting are highly dependent on prevalence. False negative testresults are more likely when prevalence is high. SOURCE (test code = 68861) NASOPHARYNGEAL Note: Methodolog y is Allyssa Miguel Angel Real-Time RT-PCR. The expected result or reference range is NEGATIVE (Not Detected). For more information regarding COVID-19 testing to include clinicalinformation, methodology detail, intended use, FDA authorization andrecommended fact sheets for patients or healthcare providers, see [employer] Announcement: SARS-CoV-2 (COVID-19) by NAAT at URL below (note,fact sheets are provided by method given in report:[email or web address] Alternatively, see downloadable PDF fact sheet at:[email or web address] UNLESS OTHERWISE INDICATED, ALL TESTING PERFORMED [facility] [employer], [facility]. [address] [place] [address] TELECOM BILLING ANALYST: JONNY FERY M.D. [place] NUMBER [id number] [facility] [place]. [id number] SARS-CoV-2 (COVID-19) by RT-PCR (HIGH RISK)2021-06-04 00:00:00* Test Item Value Reference Range Interpretation Comme nts SARS-CoV-2 INTERPRETATION (test code = 65288) NEGATIVE SOURCE (test code = 70015) NASOPHARYNGEAL SARS-CoV-2 (COVID-19) by RT-PCR (HIGH RISK)2021-06-04 00:00:00* Test Item Value Reference Range Interpretation Comme nts SARS-CoV-2 INTERPRETATION (test code = 05575) NEGATIVE SOURCE (test code = 71092) NASOPHARYNGEAL SARS-CoV-2 (COVID-19) by RT-PCR (HIGH RISK)2021-06-04 00:00:00* Test Item Value Reference Range Interpretation Comme nts SARS-CoV-2 INTERPRETATION (test code = 27325) NEGATIVE SOURCE (test code = 19685) NASOPHARYNGEAL SARS-CoV-2 (COVID-19) by RT-PCR (HIGH RISK)2021-06-04 00:00:00* Test Item Value Reference Range Interpretation Comme nts SARS-CoV-2 INTERPRETATION (test code = 75423) NEGATIVE SOURCE (test code = 85440) NASOPHARYNGEAL SARS-CoV-2 (COVID-19) by RT-PCR (HIGH RISK)2021-06-04 00:00:00* Test Item Value Reference Range Interpretation Comme nts SARS-CoV-2 INTERPRETATION (test code = 65636) NEGATIVE SOURCE (test code = 92540) NASOPHARYNGEAL SARS-CoV-2 (COVID-19) by RT-PCR (HIGH RISK)2021-06-04 00:00:00* Test Item Value Reference Range Interpretation Comme nts SARS-CoV-2 INTERPRETATION (test code = 54278) NEGATIVE SOURCE (test code = 43207) NASOPHARYNGEAL CT/NG, NAAT, [id number] 11:27:50* Test Item Value Reference Range Interpretation Comme nts GONORRHEA, NAAT (test code = 64003) POSITIVE, SEE BELOW NEGATIVE A IMPORTANT NOTICE : SEE ANNOUNCEMENT AT [email or web address] /[employer] Note: Assay methodology is nucleic acid amplification by oven worker mediated amplification (TMA) utilizing the Aptima Combo 2 Assay. IMPORTANT NOTICE: SEE ANNOUNCEMENT AT [email or web address] Sample Note: Assay methodology is nucleic acid amplification by oven worker mediated amplification (TMA) utilizing the Aptima Combo 2 Assay. Positive results repeated and confirmed. CHLAMYDIA, NAAT (test code = 93444) POSITIVE, SEE BELOW NEGATIVE A IMPORTANT NOTICE : SEE ANNOUNCEMENT AT [email or web address] /[employer] Note: Assay methodology is nucleic acid amplification by oven worker mediated amplification (TMA) utilizing the Aptima Combo 2 Assay. IMPORTANT NOTICE: SEE ANNOUNCEMENT AT [email or web address] /[employer] Note: Assay methodology is nucleic acid amplification by oven worker mediated amplification (TMA) utilizing the Aptima Combo 2 Assay. Positive results repeated and confirmed. GC AND CHLAMYDIA, AMPLIFIED, [id number] 00:00:00* Test Item Value Reference Range Interpretation Comme nts GONORRHEA, NAAT (test code = 86711) POSITIVE, SEE BELOW CHLAMYDIA, NAAT (test code = 15655) POSITIVE, SEE BELOW GC AND CHLAMYDIA, AMPLIFIED, [id number] 00:00:00* Test Item Value Reference Range Interpretation Comme nts GONORRHEA, NAAT (test code = 86396) POSITIVE, SEE BELOW CHLAMYDIA, NAAT (test code = 30943) POSITIVE, SEE BELOW GC AND CHLAMYDIA, AMPLIFIED, [id number] 00:00:00* Test Item Value Reference Range Interpretation Comme nts GONORRHEA, NAAT (test code = 73326) POSITIVE, SEE BELOW CHLAMYDIA, NAAT (test code = 14120) POSITIVE, SEE BELOW GC AND CHLAMYDIA, AMPLIFIED, [id number] 00:00:00* Test Item Value Reference Range Interpretation Comme nts GONORRHEA, NAAT (test code = 93685) POSITIVE, SEE BELOW CHLAMYDIA, NAAT (test code = 93160) POSITIVE, SEE BELOW GC AND CHLAMYDIA, AMPLIFIED, [id number] 00:00:00* Test Item Value Reference Range Interpretation Comme nts GONORRHEA, NAAT (test code = 23199) POSITIVE, SEE BELOW CHLAMYDIA, NAAT (test code = 52178) POSITIVE, SEE BELOW GC AND CHLAMYDIA, AMPLIFIED, [id number] 00:00:00* Test Item Value Reference Range Interpretation Comme nts GONORRHEA, NAAT (test code = 59778) POSITIVE, SEE BELOW CHLAMYDIA, NAAT (test code = 23236) POSITIVE, SEE BELOW HIV 1/2 4TH GEN, RFLX [id number] 05:00:55* Test Item Value Reference Range Interpretation Comme nts HIV 1/2 4TH GEN, RFLX CONF ( test code = 3514) NON-REACTIVE NON-REACTIVE HEPATITIS PANEL, [id number] 05:00:55* Test Item Value Reference Range Interpretation Comme nts HEPATITIS A IgM (test code = 96914) NON-REACTIVE NON-REACTIVE HEPATITIS B CORE IgM (test code = 4644) NON-REACTIVE NON-REACTIVE HEPATITIS B SURF AG (test code = 2739) NON-REACTIVE NON-REACTIVE HEPATITIS C ANTIBODY (test code = 4675) NON-REACTIVE NON-REACTIVE INTERPRETATION HEPATITIS A: (test code = 2552) (NOTE) Hepatitis A sero logy shows no evidence of acute hepatitis A. INTERPRETATION HEPATITIS B: (test code = 64814) (NOTE) Hepatitis B sero logy shows no evidence of acute hepatitis B andno indication of exposure to hepatitis B virus in the previous karla eight months. INTERPRETATION HEPATITIS C: (test code = 69946) (NOTE) Hepatitis C sero logy shows no evidence of exposure to hepatitisC virus at this time. It can take up to 12 months after exposure tothe hepatitis C virus for antibodies to become detectable in the blood in certain patients. UNLESS OTHERWISE INDICATED, ALL TESTING PERFORMED [facility] [employer] [address] [place] [address] TELECOM BILLING ANALYST: JONNY FREY M.D. [place] NUMBER [id number] [facility] [place] [place]. [id number] 04:58:29* Test Item Value Reference Range Interpretation Comme nts RPR RESULT (test code = 3501) NON-REACTIVE NON-REACTIVE RPR TITER (test code = 3500) NOT INDIC. TITER NOT INDIC. HIV AB/AG COMBO RFLX [id number] 00:00:00* Test Item Value Reference Range Interpretation Comme nts HIV 1/2 4TH GEN, RFLX CONF ( test code = 3514) NON-REACTIVE HIV AB/AG COMBO RFLX [id number] 00:00:00* Test Item Value Reference Range Interpretation Comme nts HIV 1/2 4TH GEN, RFLX CONF ( test code = 3514) NON-REACTIVE [id number] 00:00:00* Test Item Value Reference Range Interpretation Comme nts RPR RESULT (test code = 3501) NON-REACTIVE RPR TITER (test code = 3500) NOT INDIC. TITER [id number] 00:00:00* Test Item Value Reference Range Interpretation Comme nts RPR RESULT (test code = 3501) NON-REACTIVE RPR TITER (test code = 3500) NOT INDIC. TITER [id number] 00:00:00* Test Item Value Reference Range Interpretation Comme nts RPR RESULT (test code = 3501) NON-REACTIVE RPR TITER (test code = 3500) NOT INDIC. TITER ACUTE HEPATITIS [id number] 00:00:00* Test Item Value Reference Range Interpretation Comme nts HEPATITIS A IgM (test code = 81968) NON-REACTIVE HEPATITIS B CORE IgM (test c ode = 4644) NON-REACTIVE HEPATITIS B SURF AG (test co de = 2739) NON-REACTIVE HEPATITIS C ANTIBODY (test c ode = 4675) NON-REACTIVE INTERPRETATION HEPATITIS A: (test code = 2552) (NOTE) INTERPRETATION HEPATITIS B: (test code = 07804) (NOTE) INTERPRETATION HEPATITIS C: (test code = 54710) (NOTE) ACUTE HEPATITIS [id number] 00:00:00* Test Item Value Reference Range Interpretation Comme nts HEPATITIS A IgM (test code = 51278) NON-REACTIVE HEPATITIS B CORE IgM (test c ode = 4644) NON-REACTIVE HEPATITIS B SURF AG (test co de = 2739) NON-REACTIVE HEPATITIS C ANTIBODY (test c ode = 4675) NON-REACTIVE INTERPRETATION HEPATITIS A: (test code = 2552) (NOTE) INTERPRETATION HEPATITIS B: (test code = 05224) (NOTE) INTERPRETATION HEPATITIS C: (test code = 31829) (NOTE) HIV AB/AG COMBO RFLX [id number] 00:00:00* Test Item Value Reference Range Interpretation Comme nts HIV 1/2 4TH GEN, RFLX CONF ( test code = 3514) NON-REACTIVE HIV AB/AG COMBO RFLX [id number] 00:00:00* Test Item Value Reference Range Interpretation Comme nts HIV 1/2 4TH GEN, RFLX CONF ( test code = 3514) NON-REACTIVE [id number] 00:00:00* Test Item Value Reference Range Interpretation Comme nts RPR RESULT (test code = 3501) NON-REACTIVE RPR TITER (test code = 3500) NOT INDIC. TITER [id number] 00:00:00* Test Item Value Reference Range Interpretation Comme nts RPR RESULT (test code = 3501) NON-REACTIVE RPR TITER (test code = 3500) NOT INDIC. TITER [id number] 00:00:00* Test Item Value Reference Range Interpretation Comme nts RPR RESULT (test code = 3501) NON-REACTIVE RPR TITER (test code = 3500) NOT INDIC. TITER ACUTE HEPATITIS [id number] 00:00:00* Test Item Value Reference Range Interpretation Comme nts HEPATITIS A IgM (test code = 58553) NON-REACTIVE HEPATITIS B CORE IgM (test c ode = 4644) NON-REACTIVE HEPATITIS B SURF AG (test co de = 2739) NON-REACTIVE HEPATITIS C ANTIBODY (test c ode = 4675) NON-REACTIVE INTERPRETATION HEPATITIS A: (test code = 2552) (NOTE) INTERPRETATION HEPATITIS B: (test code = 80834) (NOTE) INTERPRETATION HEPATITIS C: (test code = 40168) (NOTE) ACUTE HEPATITIS [id number] 00:00:00* Test Item Value Reference Range Interpretation Comme nts HEPATITIS A IgM (test code = 30325) NON-REACTIVE HEPATITIS B CORE IgM (test c ode = 4644) NON-REACTIVE HEPATITIS B SURF AG (test co de = 2739) NON-REACTIVE HEPATITIS C ANTIBODY (test c ode = 4675) NON-REACTIVE INTERPRETATION HEPATITIS A: (test code = 2552) (NOTE) INTERPRETATION HEPATITIS B: (test code = 53323) (NOTE) INTERPRETATION HEPATITIS C: (test code = 81040) (NOTE) HIV AB/AG COMBO RFLX [id number] 00:00:00* Test Item Value Reference Range Interpretation Comme nts HIV 1/2 4TH GEN, RFLX CONF ( test code = 3514) NON-REACTIVE HIV AB/AG COMBO RFLX [id number] 00:00:00* Test Item Value Reference Range Interpretation Comme nts HIV 1/2 4TH GEN, RFLX CONF ( test code = 3514) NON-REACTIVE [id number] 00:00:00* Test Item Value Reference Range Interpretation Comme nts RPR RESULT (test code = 3501) NON-REACTIVE RPR TITER (test code = 3500) NOT INDIC. TITER [id number] 00:00:00* Test Item Value Reference Range Interpretation Comme nts RPR RESULT (test code = 3501) NON-REACTIVE RPR TITER (test code = 3500) NOT INDIC. TITER [id number] 00:00:00* Test Item Value Reference Range Interpretation Comme nts RPR RESULT (test code = 3501) NON-REACTIVE RPR TITER (test code = 3500) NOT INDIC. TITER ACUTE HEPATITIS [id number] 00:00:00* Test Item Value Reference Range Interpretation Comme nts HEPATITIS A IgM (test code = 21093) NON-REACTIVE HEPATITIS B CORE IgM (test c ode = 4644) NON-REACTIVE HEPATITIS B SURF AG (test co de = 2739) NON-REACTIVE HEPATITIS C ANTIBODY (test c ode = 4675) NON-REACTIVE INTERPRETATION HEPATITIS A: (test code = 2552) (NOTE) INTERPRETATION HEPATITIS B: (test code = 30102) (NOTE) INTERPRETATION HEPATITIS C: (test code = 04508) (NOTE) ACUTE HEPATITIS [id number] 00:00:00* Test Item Value Reference Range Interpretation Comme nts HEPATITIS A IgM (test code = 04695) NON-REACTIVE HEPATITIS B CORE IgM (test c ode = 4644) NON-REACTIVE HEPATITIS B SURF AG (test co de = 2739) NON-REACTIVE HEPATITIS C ANTIBODY (test c ode = 4675) NON-REACTIVE INTERPRETATION HEPATITIS A: (test code = 2552) (NOTE) INTERPRETATION HEPATITIS B: (test code = 76932) (NOTE) INTERPRETATION HEPATITIS C: (test code = 61063) (NOTE) RPR [ADDED]2021-02-18 00:00:00* Test Item Value Reference Range Interpretation Comme nts RPR RESULT (test code = 3501) NON-REACTIVE RPR TITER (test code = 3500) NOT INDIC. TITER RPR [ADDED]2021-02-18 00:00:00* Test Item Value Reference Range Interpretation Comme nts RPR RESULT (test code = 3501) NON-REACTIVE RPR TITER (test code = 3500) NOT INDIC. TITER RPR [ADDED]2021-02-18 00:00:00* Test Item Value Reference Range Interpretation Comme nts RPR RESULT (test code = 3501) NON-REACTIVE RPR TITER (test code = 3500) NOT INDIC. TITER RPR [ADDED]2021-02-18 00:00:00* Test Item Value Reference Range Interpretation Comme nts RPR RESULT (test code = 3501) NON-REACTIVE RPR TITER (test code = 3500) NOT INDIC. TITER RPR [ADDED]2021-02-18 00:00:00* Test Item Value Reference Range Interpretation Comme nts RPR RESULT (test code = 3501) NON-REACTIVE RPR TITER (test code = 3500) NOT INDIC. TITER RPR [ADDED]2021-02-18 00:00:00* Test Item Value Reference Range Interpretation Comme nts RPR RESULT (test code = 3501) NON-REACTIVE RPR TITER (test code = 3500) NOT INDIC. TITER RPR [ADDED]2021-02-18 00:00:00* Test Item Value Reference Range Interpretation Comme nts RPR RESULT (test code = 3501) NON-REACTIVE RPR TITER (test code = 3500) NOT INDIC. TITER RPR [ADDED]2021-02-18 00:00:00* Test Item Value Reference Range Interpretation Comme nts RPR RESULT (test code = 3501) NON-REACTIVE RPR TITER (test code = 3500) NOT INDIC. TITER RPR [ADDED]2021-02-18 00:00:00* Test Item Value Reference Range Interpretation Comme nts RPR RESULT (test code = 3501) NON-REACTIVE RPR TITER (test code = 3500) NOT INDIC. TITER VAGINAL PATHOGENS DNA [id number] 00:00:00* Test Item Value Reference Range Interpretation Comme nts SUZE SPECIES (test code = ) NEGATIVE G. VAGINALIS (test code = 41192) POSITIVE T. VAGINALIS (test code = 60796) NEGATIVE VAGINAL PATHOGENS DNA [id number] 00:00:00* Test Item Value Reference Range Interpretation Comme nts SUZE SPECIES (test code = 83779) NEGATIVE G. VAGINALIS (test code = 89084) POSITIVE T. VAGINALIS (test code = 90175) NEGATIVE HIV 1/2 4TH GEN, RFLX CONF [ADDED]2021-02-17 00:00:00* Test Item Value Reference Range Interpretation Comme nts HIV 1/2 4TH GEN, RFLX CONF ( test code = 3514) NON-REACTIVE HIV 1/2 4TH GEN, RFLX CONF [ADDED]2021-02-17 00:00:00* Test Item Value Reference Range Interpretation Comme nts HIV 1/2 4TH GEN, RFLX CONF ( test code = 3514) NON-REACTIVE VAGINAL PATHOGENS DNA [id number] 00:00:00* Test Item Value Reference Range Interpretation Comme nts SUZE SPECIES (test code = 61993) NEGATIVE G. VAGINALIS (test code = 09309) POSITIVE T. VAGINALIS (test code = 12816) NEGATIVE VAGINAL PATHOGENS DNA [id number] 00:00:00* Test Item Value Reference Range Interpretation Comme nts SUZE SPECIES (test code = ) NEGATIVE G. VAGINALIS (test code = 04282) POSITIVE T. VAGINALIS (test code = 05941) NEGATIVE HIV 1/2 4TH GEN, RFLX CONF [ADDED]2021-02-17 00:00:00* Test Item Value Reference Range Interpretation Comme nts HIV 1/2 4TH GEN, RFLX CONF ( test code = 3514) NON-REACTIVE HIV 1/2 4TH GEN, RFLX CONF [ADDED]2021-02-17 00:00:00* Test Item Value Reference Range Interpretation Comme nts HIV 1/2 4TH GEN, RFLX CONF ( test code = 3514) NON-REACTIVE VAGINAL PATHOGENS DNA [id number] 00:00:00* Test Item Value Reference Range Interpretation Comme nts SUZE SPECIES (test code = ) NEGATIVE G. VAGINALIS (test code = 55704) POSITIVE T. VAGINALIS (test code = 50275) NEGATIVE VAGINAL PATHOGENS DNA [id number] 00:00:00* Test Item Value Reference Range Interpretation Comme nts SUZE SPECIES (test code = ) NEGATIVE G. VAGINALIS (test code = 64447) POSITIVE T. VAGINALIS (test code = 61824) NEGATIVE HIV 1/2 4TH GEN, RFLX CONF [ADDED]2021-02-17 00:00:00* Test Item Value Reference Range Interpretation Comme nts HIV 1/2 4TH GEN, RFLX CONF ( test code = 3514) NON-REACTIVE HIV 1/2 4TH GEN, RFLX CONF [ADDED]2021-02-17 00:00:00* Test Item Value Reference Range Interpretation Comme nts HIV 1/2 4TH GEN, RFLX CONF ( test code = 3514) NON-REACTIVE CT/NG, NAAT, URINE [ADDED]2021-02-16 00:00:00* Test Item Value Reference Range Interpretation Comme nts GONORRHEA, NAAT (test code = 04196) NEGATIVE CHLAMYDIA, NAAT (test code = 07858) NEGATIVE CT/NG, NAAT, URINE [ADDED]2021-02-16 00:00:00* Test Item Value Reference Range Interpretation Comme nts GONORRHEA, NAAT (test code = 01125) NEGATIVE CHLAMYDIA, NAAT (test code = 54979) NEGATIVE CT/NG, NAAT, URINE [ADDED]2021-02-16 00:00:00* Test Item Value Reference Range Interpretation Comme nts GONORRHEA, NAAT (test code = 04522) NEGATIVE CHLAMYDIA, NAAT (test code = 35990) NEGATIVE CT/NG, NAAT, URINE [ADDED]2021-02-16 00:00:00* Test Item Value Reference Range Interpretation Comme nts GONORRHEA, NAAT (test code = 04395) NEGATIVE CHLAMYDIA, NAAT (test code = 01741) NEGATIVE CT/NG, NAAT, URINE [ADDED]2021-02-16 00:00:00* Test Item Value Reference Range Interpretation Comme nts GONORRHEA, NAAT (test code = 47913) NEGATIVE CHLAMYDIA, NAAT (test code = 67008) NEGATIVE CT/NG, NAAT, URINE [ADDED]2021-02-16 00:00:00* Test Item Value Reference Range Interpretation Comme nts GONORRHEA, NAAT (test code = 82242) NEGATIVE CHLAMYDIA, NAAT (test code = 99071) NEGATIVE GC AND CHLAMYDIA, AMPLIFIED, [id number] 00:00:00* Test Item Value Reference Range Interpretation Comme nts GONORRHEA, NAAT (test code = 31145) TEST NOT PERFORMED CHLAMYDIA, NAAT (test code = 24319) TEST NOT PERFORMED GC AND CHLAMYDIA, AMPLIFIED, [id number] 00:00:00* Test Item Value Reference Range Interpretation Comme nts GONORRHEA, NAAT (test code = 60265) TEST NOT PERFORMED CHLAMYDIA, NAAT (test code = 30203) TEST NOT PERFORMED GC AND CHLAMYDIA, AMPLIFIED, [id number] 00:00:00* Test Item Value Reference Range Interpretation Comme nts GONORRHEA, NAAT (test code = 53547) TEST NOT PERFORMED CHLAMYDIA, NAAT (test code = 72325) TEST NOT PERFORMED GC AND CHLAMYDIA, AMPLIFIED, [id number] 00:00:00* Test Item Value Reference Range Interpretation Comme nts GONORRHEA, NAAT (test code = 98839) TEST NOT PERFORMED CHLAMYDIA, NAAT (test code = 14323) TEST NOT PERFORMED GC AND CHLAMYDIA, AMPLIFIED, [id number] 00:00:00* Test Item Value Reference Range Interpretation Comme nts GONORRHEA, NAAT (test code = 98180) TEST NOT PERFORMED CHLAMYDIA, NAAT (test code = 62129) TEST NOT PERFORMED GC AND CHLAMYDIA, AMPLIFIED, [id number] 00:00:00* Test Item Value Reference Range Interpretation Comme nts GONORRHEA, NAAT (test code = 27297) TEST NOT PERFORMED CHLAMYDIA, NAAT (test code = 35549) TEST NOT PERFORMED CHLAMYDIA/N. GONORRHOEAE RNA, TMA (REFL)2021-01-22 00:00:00* Test Item Value Reference Range Interpretation Comme nts CHLAMYDIA TRACHOMATIS RNA, T MA, UROGENITAL (test code = 87958-6) NOT DETECTED NEISSERIA GONORRHOEAE RNA, T MA, UROGENITAL (test code = 14784-2) NOT DETECTED COMMENT (test code = ) CHLAMYDIA/N. GONORRHOEAE RNA, TMA (REFL)2021-01-22 00:00:00* Test Item Value Reference Range Interpretation Comme nts CHLAMYDIA TRACHOMATIS RNA, T MA, UROGENITAL (test code = 30071-0) NOT DETECTED NEISSERIA GONORRHOEAE RNA, T MA, UROGENITAL (test code = 91340-6) NOT DETECTED COMMENT (test code = ) CHLAMYDIA/N. GONORRHOEAE RNA, TMA (REFL)2021-01-22 00:00:00* Test Item Value Reference Range Interpretation Comme nts CHLAMYDIA TRACHOMATIS RNA, T MA, UROGENITAL (test code = 89281-2) NOT DETECTED NEISSERIA GONORRHOEAE RNA, T MA, UROGENITAL (test code = 62391-7) NOT DETECTED COMMENT (test code = ) C. TRACHOMATIS/N. GONORRHOEAE, RECTAL/PHARYNGEAL [ADDED]2021-01-13 00:00:00* Test Item Value Reference Range Interpretation Comme nts SOURCE (test code = 11547) THROAT C. TRACHOMATIS (test code = 10456) NEGATIVE N. GONORRHOEAE (test code = 61874) NEGATIVE C. TRACHOMATIS/N. GONORRHOEAE, RECTAL/PHARYNGEAL [ADDED]2021-01-13 00:00:00* Test Item Value Reference Range Interpretation Comme nts SOURCE (test code = 67436) THROAT C. TRACHOMATIS (test code = 85743) NEGATIVE N. GONORRHOEAE (test code = 59583) NEGATIVE C. TRACHOMATIS/N. GONORRHOEAE, RECTAL/PHARYNGEAL [ADDED]2021-01-13 00:00:00* Test Item Value Reference Range Interpretation Comme nts SOURCE (test code = 46896) THROAT C. TRACHOMATIS (test code = 65369) NEGATIVE N. GONORRHOEAE (test code = 79131) NEGATIVE CARDIO IQ(R) VITAMIN D, 25-HYDROXY, [id number] 00:00:00* Test Item Value Reference Range Interpretation Comme nts VITAMIN D, 25-OH, TOTAL (vinod t code = 56408-7) 21 ng/mL VITAMIN D, 25-OH, D3 (test c ode = 1989-) 21 ng/mL VITAMIN D, 25-OH, D2 (test c ode = 6-8) <4.0 ng/mL CHLAMYDIA/N. GONORRHOEAE RNA, [id number] 00:00:00* Test Item Value Reference Range Interpretation Comme nts CHLAMYDIA TRACHOMATIS RNA, T MA, UROGENITAL (test code = 70453-4) DETECTED NEISSERIA GONORRHOEAE RNA, T MA, UROGENITAL (test code = 52603-5) NOT DETECTED COMMENT (test code = ) CARDIO IQ(R) VITAMIN D, 25-HYDROXY, [id number] 00:00:00* Test Item Value Reference Range Interpretation Comme nts VITAMIN D, 25-OH, TOTAL (vinod t code = 22374-9) 21 ng/mL VITAMIN D, 25-OH, D3 (test c ode = 1989-05) 21 ng/mL VITAMIN D, 25-OH, D2 (test c ode = 2235-8) <4.0 ng/mL CHLAMYDIA/N. GONORRHOEAE RNA, [id number] 00:00:00* Test Item Value Reference Range Interpretation Comme nts CHLAMYDIA TRACHOMATIS RNA, T MA, UROGENITAL (test code = 98121-5) DETECTED NEISSERIA GONORRHOEAE RNA, T MA, UROGENITAL (test code = 25469-3) NOT DETECTED COMMENT (test code = ) CARDIO IQ(R) VITAMIN D, 25-HYDROXY, LC/MS/[id number] 00:00:00* Test Item Value Reference Range Interpretation Comme nts VITAMIN D, 25-OH, TOTAL (vinod t code = 81585-3) 21 ng/mL VITAMIN D, 25-OH, D3 (test c ode = 1989-05) 21 ng/mL VITAMIN D, 25-OH, D2 (test c ode = 2236-8) <4.0 ng/mL CHLAMYDIA/N. GONORRHOEAE RNA, [id number] 00:00:00* Test Item Value Reference Range Interpretation Comme nts CHLAMYDIA TRACHOMATIS RNA, T MA, UROGENITAL (test code = 38567-7) DETECTED NEISSERIA GONORRHOEAE RNA, T MA, UROGENITAL (test code = 32174-2) NOT DETECTED COMMENT (test code = ) HIV 1/2 ANTIGEN/ANTIBODY,FOURTH GENERATION [id number] 00:00:00* Test Item Value Reference Range Interpretation Comme nts HIV AG/AB, 4TH GEN (test cod e = 32147-5) NON-REACTIVE CBC (INCLUDES DIFF/PLT)2020-10-06 00:00:00* Test Item Value Reference Range Interpretation Comme nts WHITE BLOOD CELL COUNT (test code = 6690-2) 4.7 Thousand/uL RED BLOOD CELL COUNT (test code = 789-8) 4.51 Million/uL HEMOGLOBIN (test code = 718-7) 14.0 g/dL HEMATOCRIT (test code = 4544-3) 42.4 % MCV (test code = 787-2) 94.0 fL MCH (test code = 785-6) 31.0 pg MCHC (test code = 786-4) 33.0 g/dL RDW (test code = 788-0) 11.3 % PLATELET COUNT (test code = 777-3) 341 Thousand/uL MPV (test code = 776-5) 9.9 fL ABSOLUTE NEUTROPHILS (test code = 751-8) 2684 cells/uL ABSOLUTE BAND NEUTROPHILS (test code = 38529-3) DNR cells/uL ABSOLUTE METAMYELOCYTES (vinod t code = 57244-0) DNR cells/uL ABSOLUTE MYELOCYTES (test code = 90416-9) DNR cells/uL ABSOLUTE PROMYELOCYTES (test code = 22508-9) DNR cells/uL ABSOLUTE LYMPHOCYTES (test code = 731-0) 1476 cells/uL ABSOLUTE MONOCYTES (test cod e = 742-7) 390 cells/uL ABSOLUTE EOSINOPHILS (test code = 711-2) 132 cells/uL ABSOLUTE BASOPHILS (test cod e = 704-7) 19 cells/uL ABSOLUTE BLASTS (test code = 62152-6) DNR cells/uL ABSOLUTE NUCLEATED RBC (test code = 63032-2) DNR cells/uL NEUTROPHILS (test code = 770-8) 57.1 % BAND NEUTROPHILS (test code = 764-1) DNR % METAMYELOCYTES (test code = 740-1) DNR % MYELOCYTES (test code = 749-2) DNR % PROMYELOCYTES (test code = 783-1) DNR % LYMPHOCYTES (test code = 736-9) 31.4 % REACTIVE LYMPHOCYTES (test code = 59731-0) DNR % MONOCYTES (test code = 5905-5) 8.3 % EOSINOPHILS (test code = 713-8) 2.8 % BASOPHILS (test code = 706-2) 0.4 % BLASTS (test code = 709-6) DNR % NUCLEATED RBC (test code = 35619-3) DNR /100WBC COMMENT(S) (test code = 8251-1) DNR LIPID PANEL (REFL)2020-10-06 00:00:00* Test Item Value Reference Range Interpretation Comme nts CHOLESTEROL, TOTAL (test cod e = 2093-3) 138 mg/dL HDL CHOLESTEROL (test code = 2085-9) 52 mg/dL TRIGLYCERIDES (test code = 2571-8) 78 mg/dL LDL-CHOLESTEROL (test code = 78178-8) 70 mg/dL(calc) CHOL/HDLC RATIO (test code = 9830-1) 2.7 (calc) NON HDL CHOLESTEROL (test co de = 30002-1) 86 mg/dL(calc) COMPREHENSIVE METABOLIC [id number] 00:00:00* Test Item Value Reference Range Interpretation Comme nts GLUCOSE (test code = 2345-7) 112 mg/dL UREA NITROGEN (BUN) (test code = 3094-0) 14 mg/dL CREATININE (test code = 2160-0) 0.71 mg/dL eGFR NON-AFR. [place] (test code = 24549-0) 123 mL/min/1.73m2 eGFR (test code = 95028-5) 143 mL/min/1.73m2 BUN/CREATININE RATIO (test code = 3097-3) NOT APPLICABLE (calc) SODIUM (test code = 2951-2) 141 mmol/L POTASSIUM (test code = 2823-3) 4.2 mmol/L CHLORIDE (test code = 2075-0) 108 mmol/L CARBON DIOXIDE (test code = 2027-9) 23 mmol/L CALCIUM (test code = 66937-3) 9.4 mg/dL PROTEIN, TOTAL (test code = 2885-2) 6.7 g/dL ALBUMIN (test code = 1751-7) 4.3 g/dL GLOBULIN (test code = 22736-4) 2.4 g/dL(calc) ALBUMIN/GLOBULIN RATIO (test code = 1759-0) 1.8 (calc) BILIRUBIN, TOTAL (test code = 1975-2) 0.3 mg/dL ALKALINE PHOSPHATASE (test code = 6768-6) 54 U/L AST (test code = 1920-8) 16 U/L ALT (test code = 1742-6) 17 U/L [id number] 00:00:00* Test Item Value Reference Range Interpretation Comme nts TSH (test code = 3016-3) 0.93 mIU/L HEMOGLOBIN [id number] 00:00:00* Test Item Value Reference Range Interpretation Comme [facility] HEMOGLOBIN A1c (test code = 4548-4) 4.8 %oftotalHgb RPR (MONITOR) W/REFL [id number] 00:00:00* Test Item Value Reference Range Interpretation Comme nts RPR (MONITOR) W/REFL TITER ( test code = 84548-2) NON-REACTIVE HIV 1/2 ANTIGEN/ANTIBODY,FOURTH GENERATION [id number] 00:00:00* Test Item Value Reference Range Interpretation Comme nts HIV AG/AB, 4TH GEN (test cod e = 40797-5) NON-REACTIVE CBC (INCLUDES DIFF/PLT)2020-10-06 00:00:00* Test Item Value Reference Range Interpretation Comme nts WHITE BLOOD CELL COUNT (test code = 6690-2) 4.7 Thousand/uL RED BLOOD CELL COUNT (test code = 789-8) 4.51 Million/uL HEMOGLOBIN (test code = 718-7) 14.0 g/dL HEMATOCRIT (test code = 4544-3) 42.4 % MCV (test code = 787-2) 94.0 fL MCH (test code = 785-6) 31.0 pg MCHC (test code = 786-4) 33.0 g/dL RDW (test code = 788-0) 11.3 % PLATELET COUNT (test code = 777-3) 341 Thousand/uL MPV (test code = 776-5) 9.9 fL ABSOLUTE NEUTROPHILS (test code = 751-8) 2684 cells/uL ABSOLUTE BAND NEUTROPHILS (test code = 97196-1) DNR cells/uL ABSOLUTE METAMYELOCYTES (vinod t code = 20258-3) DNR cells/uL ABSOLUTE MYELOCYTES (test code = 40693-5) DNR cells/uL ABSOLUTE PROMYELOCYTES (test code = 69937-4) DNR cells/uL ABSOLUTE LYMPHOCYTES (test code = 731-0) 1476 cells/uL ABSOLUTE MONOCYTES (test cod e = 742-7) 390 cells/uL ABSOLUTE EOSINOPHILS (test code = 711-2) 132 cells/uL ABSOLUTE BASOPHILS (test cod e = 704-7) 19 cells/uL ABSOLUTE BLASTS (test code = 91528-2) DNR cells/uL ABSOLUTE NUCLEATED RBC (test code = 52883-8) DNR cells/uL NEUTROPHILS (test code = 770-8) 57.1 % BAND NEUTROPHILS (test code = 764-1) DNR % METAMYELOCYTES (test code = 740-1) DNR % MYELOCYTES (test code = 749-2) DNR % PROMYELOCYTES (test code = 783-1) DNR % LYMPHOCYTES (test code = 736-9) 31.4 % REACTIVE LYMPHOCYTES (test code = 26368-7) DNR % MONOCYTES (test code = 5905-5) 8.3 % EOSINOPHILS (test code = 713-8) 2.8 % BASOPHILS (test code = 706-2) 0.4 % BLASTS (test code = 709-6) DNR % NUCLEATED RBC (test code = 34931-4) DNR /100WBC COMMENT(S) (test code = 8251-1) DNR LIPID PANEL (REFL)2020-10-06 00:00:00* Test Item Value Reference Range Interpretation Comme nts CHOLESTEROL, TOTAL (test cod e = 2093-3) 138 mg/dL HDL CHOLESTEROL (test code = 2085-9) 52 mg/dL TRIGLYCERIDES (test code = 2571-8) 78 mg/dL LDL-CHOLESTEROL (test code = 27005-3) 70 mg/dL(calc) CHOL/HDLC RATIO (test code = 9830-1) 2.7 (calc) NON HDL CHOLESTEROL (test co de = 58753-6) 86 mg/dL(calc) COMPREHENSIVE METABOLIC [id number] 00:00:00* Test Item Value Reference Range Interpretation Comme nts GLUCOSE (test code = 2345-7) 112 mg/dL UREA NITROGEN (BUN) (test code = 3094-0) 14 mg/dL CREATININE (test code = 2160-0) 0.71 mg/dL eGFR NON-AFR. [place] (test code = 09781-6) 123 mL/min/1.73m2 eGFR (test code = 00183-8) 143 mL/min/1.73m2 BUN/CREATININE RATIO (test code = 3097-3) NOT APPLICABLE (calc) SODIUM (test code = 2951-2) 141 mmol/L POTASSIUM (test code = 2823-3) 4.2 mmol/L CHLORIDE (test code = 2075-0) 108 mmol/L CARBON DIOXIDE (test code = 2027-9) 23 mmol/L CALCIUM (test code = 54863-4) 9.4 mg/dL PROTEIN, TOTAL (test code = 2885-2) 6.7 g/dL ALBUMIN (test code = 1751-7) 4.3 g/dL GLOBULIN (test code = 93544-9) 2.4 g/dL(calc) ALBUMIN/GLOBULIN RATIO (test code = 1759-0) 1.8 (calc) BILIRUBIN, TOTAL (test code = 1975-2) 0.3 mg/dL ALKALINE PHOSPHATASE (test code = 6768-6) 54 U/L AST (test code = 1920-8) 16 U/L ALT (test code = 1742-6) 17 U/L [id number] 00:00:00* Test Item Value Reference Range Interpretation Comme nts TSH (test code = 3016-3) 0.93 mIU/L HEMOGLOBIN [id number] 00:00:00* Test Item Value Reference Range Interpretation Comme [facility] HEMOGLOBIN A1c (test code = 4548-4) 4.8 %oftotalHgb RPR (MONITOR) W/REFL [id number] 00:00:00* Test Item Value Reference Range Interpretation Comme nts RPR (MONITOR) W/REFL TITER ( test code = 27973-3) NON-REACTIVE HIV 1/2 ANTIGEN/ANTIBODY,FOURTH GENERATION [id number] 00:00:00* Test Item Value Reference Range Interpretation Comme nts HIV AG/AB, 4TH GEN (test cod e = 15753-3) NON-REACTIVE CBC (INCLUDES DIFF/PLT)2020-10-06 00:00:00* Test Item Value Reference Range Interpretation Comme nts WHITE BLOOD CELL COUNT (test code = 6690-2) 4.7 Thousand/uL RED BLOOD CELL COUNT (test code = 789-8) 4.51 Million/uL HEMOGLOBIN (test code = 718-7) 14.0 g/dL HEMATOCRIT (test code = 4544-3) 42.4 % MCV (test code = 787-2) 94.0 fL MCH (test code = 785-6) 31.0 pg MCHC (test code = 786-4) 33.0 g/dL RDW (test code = 788-0) 11.3 % PLATELET COUNT (test code = 777-3) 341 Thousand/uL MPV (test code = 776-5) 9.9 fL ABSOLUTE NEUTROPHILS (test code = 751-8) 2684 cells/uL ABSOLUTE BAND NEUTROPHILS (test code = 24064-9) DNR cells/uL ABSOLUTE METAMYELOCYTES (vinod t code = 65599-8) DNR cells/uL ABSOLUTE MYELOCYTES (test code = 03656-4) DNR cells/uL ABSOLUTE PROMYELOCYTES (test code = 58059-9) DNR cells/uL ABSOLUTE LYMPHOCYTES (test code = 731-0) 1476 cells/uL ABSOLUTE MONOCYTES (test cod e = 742-7) 390 cells/uL ABSOLUTE EOSINOPHILS (test code = 711-2) 132 cells/uL ABSOLUTE BASOPHILS (test cod e = 704-7) 19 cells/uL ABSOLUTE BLASTS (test code = 06638-3) DNR cells/uL ABSOLUTE NUCLEATED RBC (test code = 01691-2) DNR cells/uL NEUTROPHILS (test code = 770-8) 57.1 % BAND NEUTROPHILS (test code = 764-1) DNR % METAMYELOCYTES (test code = 740-1) DNR % MYELOCYTES (test code = 749-2) DNR % PROMYELOCYTES (test code = 783-1) DNR % LYMPHOCYTES (test code = 736-9) 31.4 % REACTIVE LYMPHOCYTES (test code = 26107-9) DNR % MONOCYTES (test code = 5905-5) 8.3 % EOSINOPHILS (test code = 713-8) 2.8 % BASOPHILS (test code = 706-2) 0.4 % BLASTS (test code = 709-6) DNR % NUCLEATED RBC (test code = 07089-6) DNR /100WBC COMMENT(S) (test code = 8251-1) DNR LIPID PANEL (REFL)2020-10-06 00:00:00* Test Item Value Reference Range Interpretation Comme nts CHOLESTEROL, TOTAL (test cod e = 2093-3) 138 mg/dL HDL CHOLESTEROL (test code = 2085-9) 52 mg/dL TRIGLYCERIDES (test code = 2571-8) 78 mg/dL LDL-CHOLESTEROL (test code = 00760-2) 70 mg/dL(calc) CHOL/HDLC RATIO (test code = 9830-1) 2.7 (calc) NON HDL CHOLESTEROL (test co de = 57825-8) 86 mg/dL(calc) COMPREHENSIVE METABOLIC [id number] 00:00:00* Test Item Value Reference Range Interpretation Comme nts GLUCOSE (test code = 2345-7) 112 mg/dL UREA NITROGEN (BUN) (test code = 3094-0) 14 mg/dL CREATININE (test code = 2160-0) 0.71 mg/dL eGFR NON-AFR. [place] (test code = 93995-5) 123 mL/min/1.73m2 eGFR (test code = 26534-7) 143 mL/min/1.73m2 BUN/CREATININE RATIO (test code = 3097-3) NOT APPLICABLE (calc) SODIUM (test code = 2951-2) 141 mmol/L POTASSIUM (test code = 2823-3) 4.2 mmol/L CHLORIDE (test code = 2075-0) 108 mmol/L CARBON DIOXIDE (test code = 2027-9) 23 mmol/L CALCIUM (test code = 80009-3) 9.4 mg/dL PROTEIN, TOTAL (test code = 2885-2) 6.7 g/dL ALBUMIN (test code = 1751-7) 4.3 g/dL GLOBULIN (test code = 31670-9) 2.4 g/dL(calc) ALBUMIN/GLOBULIN RATIO (test code = 1759-0) 1.8 (calc) BILIRUBIN, TOTAL (test code = 1975-2) 0.3 mg/dL ALKALINE PHOSPHATASE (test code = 6768-6) 54 U/L AST (test code = 1920-8) 16 U/L ALT (test code = 1742-6) 17 U/L [id number] 00:00:00* Test Item Value Reference Range Interpretation Comme nts TSH (test code = 3016-3) 0.93 mIU/L HEMOGLOBIN [id number] 00:00:00* Test Item Value Reference Range Interpretation Comme nts HEMOGLOBIN A1c (test code = 4548-4) 4.8 %oftotalHgb RPR (MONITOR) W/REFL [id number] 00:00:00* Test Item Value Reference Range Interpretation Comme nts RPR (MONITOR) W/REFL TITER ( test code = 70054-9) NON-REACTIVE BV/VAGINITIS PANEL DNA [id number] 00:00:00* Test Item Value Reference Range Interpretation Comme nts TRICHOMONAS: (test code = 6568-0) NOT DETECTED GARDNERELLA: (test code = 6410-5) DETECTED SUZE: (test code = 31568-8) DETECTED BV/VAGINITIS PANEL DNA [id number] 00:00:00* Test Item Value Reference Range Interpretation Comme nts TRICHOMONAS: (test code = 6568-0) NOT DETECTED GARDNERELLA: (test code = 6410-5) DETECTED SUZE: (test code = 34577-0) DETECTED BV/VAGINITIS PANEL DNA [id number] 00:00:00* Test Item Value Reference Range Interpretation Comme nts TRICHOMONAS: (test code = 6568-0) NOT DETECTED GARDNERELLA: (test code = 6410-5) DETECTED SUZE: (test code = 18139-2) DETECTED BV/VAGINITIS PANEL DNA [id number] 00:00:00* Test Item Value Reference Range Interpretation Comme nts TRICHOMONAS: (test code = 6568-0) NOT DETECTED GARDNERELLA: (test code = 6410-5) DETECTED SUZE: (test code = 01459-5) NOT DETECTED BV/VAGINITIS PANEL DNA [id number] 00:00:00* Test Item Value Reference Range Interpretation Comme nts TRICHOMONAS: (test code = 6568-0) NOT DETECTED GARDNERELLA: (test code = 6410-5) DETECTED SUZE: (test code = 54136-8) NOT DETECTED BV/VAGINITIS PANEL DNA [id number] 00:00:00* Test Item Value Reference Range Interpretation Comme nts TRICHOMONAS: (test code = 6568-0) NOT DETECTED GARDNERELLA: (test code = 6410-5) DETECTED SUZE: (test code = 22033-0) NOT DETECTED CHLAMYDIA TRACHOMATIS RNA, [id number] 00:00:00* Test Item Value Reference Range Interpretation Comme nts CHLAMYDIA TRACHOMATIS RNA, T MA, UROGENITAL (test code = 65326-6) NOT DETECTED COMMENT (test code = ) HEPATITIS PANEL, [id number] 00:00:00* Test Item Value Reference Range Interpretation Comme nts HEPATITIS A AB, TOTAL (test code = 23069-4) REACTIVE HEPATITIS B SURFACE ANTIBODY QL (test code = 24891-8) NON-REACTIVE HEPATITIS B SURFACE ANTIGEN (test code = 5196-1) NON-REACTIVE CONFIRMATION (test code = 7905-3) DNR HEPATITIS B CORE AB TOTAL (t est code = 74030-2) NON-REACTIVE HEPATITIS C ANTIBODY (test c ode = 74854-6) NON-REACTIVE SIGNAL TO CUT-OFF (test code = 52972-9) 0.02 NEISSERIA GONORRHOEAE RNA, [id number] 00:00:00* Test Item Value Reference Range Interpretation Comme nts NEISSERIA GONORRHOEAE RNA, T MA, UROGENITAL (test code = 18818-4) NOT DETECTED COMMENT (test code = ) RPR (MONITOR) W/REFL [id number] 00:00:00* Test Item Value Reference Range Interpretation Comme nts RPR (MONITOR) W/REFL TITER ( test code = 78945-3) NON-REACTIVE CHLAMYDIA TRACHOMATIS RNA, [id number] 00:00:00* Test Item Value Reference Range Interpretation Comme nts CHLAMYDIA TRACHOMATIS RNA, T MA, UROGENITAL (test code = 16829-7) NOT DETECTED COMMENT (test code = ) HIV 1/2 ANTIGEN/ANTIBODY,FOURTH GENERATION [id number] 00:00:00* Test Item Value Reference Range Interpretation Comme nts HIV AG/AB, 4TH GEN (test cod e = 70870-4) NON-REACTIVE NEISSERIA GONORRHOEAE RNA, [id number] 00:00:00* Test Item Value Reference Range Interpretation Comme nts NEISSERIA GONORRHOEAE RNA, T MA, UROGENITAL (test code = 95818-4) NOT DETECTED COMMENT (test code = ) HEPATITIS PANEL, [id number] 00:00:00* Test Item Value Reference Range Interpretation Comme nts HEPATITIS A AB, TOTAL (test code = 27079-7) REACTIVE HEPATITIS B SURFACE ANTIBODY QL (test code = 99549-4) NON-REACTIVE HEPATITIS B SURFACE ANTIGEN (test code = 5196-1) NON-REACTIVE CONFIRMATION (test code = 7905-3) DNR HEPATITIS B CORE AB TOTAL (t est code = 12144-2) NON-REACTIVE HEPATITIS C ANTIBODY (test c ode = 42010-7) NON-REACTIVE SIGNAL TO CUT-OFF (test code = 32096-0) 0.02 RPR (MONITOR) W/REFL [id number] 00:00:00* Test Item Value Reference Range Interpretation Comme nts RPR (MONITOR) W/REFL TITER ( test code = 45413-3) NON-REACTIVE CHLAMYDIA TRACHOMATIS RNA, [id number] 00:00:00* Test Item Value Reference Range Interpretation Comme nts CHLAMYDIA TRACHOMATIS RNA, T MA, UROGENITAL (test code = 66376-7) NOT DETECTED COMMENT (test code = ) HIV 1/2 ANTIGEN/ANTIBODY,FOURTH GENERATION [id number] 00:00:00* Test Item Value Reference Range Interpretation Comme nts HIV AG/AB, 4TH GEN (test cod e = 44813-5) NON-REACTIVE NEISSERIA GONORRHOEAE RNA, [id number] 00:00:00* Test Item Value Reference Range Interpretation Comme nts NEISSERIA GONORRHOEAE RNA, T MA, UROGENITAL (test code = 91876-3) NOT DETECTED COMMENT (test code = ) HEPATITIS PANEL, [id number] 00:00:00* Test Item Value Reference Range Interpretation Comme nts HEPATITIS A AB, TOTAL (test code = 99790-6) REACTIVE HEPATITIS B SURFACE ANTIBODY QL (test code = 38056-2) NON-REACTIVE HEPATITIS B SURFACE ANTIGEN (test code = 5196-1) NON-REACTIVE CONFIRMATION (test code = 7905-3) DNR HEPATITIS B CORE AB TOTAL (t est code = 31395-8) NON-REACTIVE HEPATITIS C ANTIBODY (test c ode = 37172-0) NON-REACTIVE SIGNAL TO CUT-OFF (test code = 59509-2) 0.02 RPR (MONITOR) W/REFL [id number] 00:00:00* Test Item Value Reference Range Interpretation Comme nts RPR (MONITOR) W/REFL TITER ( test code = 21481-6) NON-REACTIVE HIV 1/2 ANTIGEN/ANTIBODY,FOURTH GENERATION [id number] 00:00:00* Test Item Value Reference Range Interpretation Comme nts HIV AG/AB, 4TH GEN (test cod e = 09679-0) NON-REACTIVE GC AND CHLAMYDIA, AMPLIFIED, [id number] 00:00:00* Test Item Value Reference Range Interpretation Comme nts GONORRHEA, TMA (test code = 68408) NEGATIVE CHLAMYDIA, TMA (test code = 22349) NEGATIVE GC AND CHLAMYDIA, AMPLIFIED, [id number] 00:00:00* Test Item Value Reference Range Interpretation Comme nts GONORRHEA, TMA (test code = 34817) NEGATIVE CHLAMYDIA, TMA (test code = 36020) NEGATIVE GC AND CHLAMYDIA, AMPLIFIED, [id number] 00:00:00* Test Item Value Reference Range Interpretation Comme nts GONORRHEA, TMA (test code = 29008) NEGATIVE CHLAMYDIA, TMA (test code = 29282) NEGATIVE GC AND CHLAMYDIA, AMPLIFIED, [id number] 00:00:00* Test Item Value Reference Range Interpretation Comme nts GONORRHEA, TMA (test code = 85073) NEGATIVE CHLAMYDIA, TMA (test code = 02402) NEGATIVE GC AND CHLAMYDIA, AMPLIFIED, [id number] 00:00:00* Test Item Value Reference Range Interpretation Comme nts GONORRHEA, TMA (test code = 67587) NEGATIVE CHLAMYDIA, TMA (test code = 67502) NEGATIVE GC AND CHLAMYDIA, AMPLIFIED, [id number] 00:00:00* Test Item Value Reference Range Interpretation Comme nts GONORRHEA, TMA (test code = 60599) NEGATIVE CHLAMYDIA, TMA (test code = 02159) NEGATIVE CT/NG, TMA, SIMPLESWAB [ADDED]2020-02-13 00:00:00* Test Item Value Reference Range Interpretation Comme nts CHLAMYDIA, TMA (test code = 39160) TEST NOT PERFORMED GONORRHEA, TMA (test code = 59176) TEST NOT PERFORMED CT/NG, TMA, SIMPLESWAB [ADDED]2020-02-13 00:00:00* Test Item Value Reference Range Interpretation Comme nts CHLAMYDIA, TMA (test code = 39808) TEST NOT PERFORMED GONORRHEA, TMA (test code = 10452) TEST NOT PERFORMED CT/NG, TMA, SIMPLESWAB [ADDED]2020-02-13 00:00:00* Test Item Value Reference Range Interpretation Comme nts CHLAMYDIA, TMA (test code = 85204) TEST NOT PERFORMED GONORRHEA, TMA (test code = 64024) TEST NOT PERFORMED CT/NG, TMA, SIMPLESWAB [ADDED]2020-02-13 00:00:00* Test Item Value Reference Range Interpretation Comme nts CHLAMYDIA, TMA (test code = 99689) TEST NOT PERFORMED GONORRHEA, TMA (test code = 63812) TEST NOT PERFORMED CT/NG, TMA, SIMPLESWAB [ADDED]2020-02-13 00:00:00* Test Item Value Reference Range Interpretation Comme nts CHLAMYDIA, TMA (test code = 82001) TEST NOT PERFORMED GONORRHEA, TMA (test code = 41133) TEST NOT PERFORMED CT/NG, TMA, SIMPLESWAB [ADDED]2020-02-13 00:00:00* Test Item Value Reference Range Interpretation Comme nts CHLAMYDIA, TMA (test code = 68561) TEST NOT PERFORMED GONORRHEA, TMA (test code = 96620) TEST NOT PERFORMED GC AND CHLAMYDIA, AMPLIFIED, [id number] 00:00:00* Test Item Value Reference Range Interpretation Comme nts GONORRHEA, TMA (test code = 23766) TEST NOT PERFORMED CHLAMYDIA, TMA (test code = 84566) TEST NOT PERFORMED GC AND CHLAMYDIA, AMPLIFIED, [id number] 00:00:00* Test Item Value Reference Range Interpretation Comme nts GONORRHEA, TMA (test code = 30555) TEST NOT PERFORMED CHLAMYDIA, TMA (test code = 10974) TEST NOT PERFORMED GC AND CHLAMYDIA AMPLIFIED, [id number] 00:00:00* Test Item Value Reference Range Interpretation Comme nts CHLAMYDIA, TMA (test code = 43625) TEST NOT PERFORMED GONORRHEA, TMA (test code = 38982) TEST NOT PERFORMED GC AND CHLAMYDIA AMPLIFIED, [id number] 00:00:00* Test Item Value Reference Range Interpretation Comme nts CHLAMYDIA, TMA (test code = 25726) TEST NOT PERFORMED GONORRHEA, TMA (test code = 29239) TEST NOT PERFORMED GC AND CHLAMYDIA, AMPLIFIED, [id number] 00:00:00* Test Item Value Reference Range Interpretation Comme nts GONORRHEA, TMA (test code = 77491) TEST NOT PERFORMED CHLAMYDIA, TMA (test code = 32308) TEST NOT PERFORMED GC AND CHLAMYDIA, AMPLIFIED, [id number] 00:00:00* Test Item Value Reference Range Interpretation Comme nts GONORRHEA, TMA (test code = 78199) TEST NOT PERFORMED CHLAMYDIA, TMA (test code = 51829) TEST NOT PERFORMED GC AND CHLAMYDIA AMPLIFIED, [id number] 00:00:00* Test Item Value Reference Range Interpretation Comme nts CHLAMYDIA, TMA (test code = 73425) TEST NOT PERFORMED GONORRHEA, TMA (test code = 06092) TEST NOT PERFORMED GC AND CHLAMYDIA AMPLIFIED, [id number] 00:00:00* Test Item Value Reference Range Interpretation Comme nts CHLAMYDIA, TMA (test code = 28475) TEST NOT PERFORMED GONORRHEA, TMA (test code = 48015) TEST NOT PERFORMED GC AND CHLAMYDIA, AMPLIFIED, [id number] 00:00:00* Test Item Value Reference Range Interpretation Comme nts GONORRHEA, TMA (test code = 59746) TEST NOT PERFORMED CHLAMYDIA, TMA (test code = 37851) TEST NOT PERFORMED GC AND CHLAMYDIA, AMPLIFIED, [id number] 00:00:00* Test Item Value Reference Range Interpretation Comme nts GONORRHEA, TMA (test code = 04104) TEST NOT PERFORMED CHLAMYDIA, TMA (test code = 54600) TEST NOT PERFORMED GC AND CHLAMYDIA AMPLIFIED, [id number] 00:00:00* Test Item Value Reference Range Interpretation Comme nts CHLAMYDIA, TMA (test code = 15186) TEST NOT PERFORMED GONORRHEA, TMA (test code = 28925) TEST NOT PERFORMED GC AND CHLAMYDIA AMPLIFIED, [id number] 00:00:00* Test Item Value Reference Range Interpretation Comme nts CHLAMYDIA, TMA (test code = 14120) TEST NOT PERFORMED GONORRHEA, TMA (test code = 67674) TEST NOT PERFORMED VAGINAL PATHOGENS DNA [id number] 00:00:00* Test Item Value Reference Range Interpretation Comme nts SUZE SPECIES (test code = 14298) NEGATIVE G. VAGINALIS (test code = 84848) NEGATIVE T. VAGINALIS (test code = 98843) NEGATIVE VAGINAL PATHOGENS DNA [id number] 00:00:00* Test Item Value Reference Range Interpretation Comme nts SUZE SPECIES (test code = 41283) NEGATIVE G. VAGINALIS (test code = 05886) NEGATIVE T. VAGINALIS (test code = 73131) NEGATIVE VAGINAL PATHOGENS DNA [id number] 00:00:00* Test Item Value Reference Range Interpretation Comme nts SUEZ SPECIES (test code = 47084) NEGATIVE G. VAGINALIS (test code = 38115) NEGATIVE T. VAGINALIS (test code = 45783) NEGATIVE VAGINAL PATHOGENS DNA [id number] 00:00:00* Test Item Value Reference Range Interpretation Comme nts SUZE SPECIES (test code = 82286) NEGATIVE G. VAGINALIS (test code = 83197) NEGATIVE T. VAGINALIS (test code = 41135) NEGATIVE VAGINAL PATHOGENS DNA [id number] 00:00:00* Test Item Value Reference Range Interpretation Comme nts SUZE SPECIES (test code = 87428) NEGATIVE G. VAGINALIS (test code = 58558) NEGATIVE T. VAGINALIS (test code = 20638) NEGATIVE VAGINAL PATHOGENS DNA [id number] 00:00:00* Test Item Value Reference Range Interpretation Comme nts SUZE SPECIES (test code = 51639) NEGATIVE G. VAGINALIS (test code = 82910) NEGATIVE T. VAGINALIS (test code = 86454) NEGATIVE SARS-CoV-2 (COVID-19) by RT-PCR (HIGH RISK)2019-12-21 00:00:00* Test Item Value Reference Range Interpretation Comme nts SARS-CoV-2 INTERPRETATION (test code = 80106) NEGATIVE SOURCE (test code = 92507) NASOPHARYNGEAL SARS-CoV-2 (COVID-19) by RT-PCR (HIGH RISK)2019-12-21 00:00:00* Test Item Value Reference Range Interpretation Comme nts SARS-CoV-2 INTERPRETATION (test code = 12439) NEGATIVE SOURCE (test code = 58505) NASOPHARYNGEAL SARS-CoV-2 (COVID-19) by RT-PCR (HIGH RISK)2019-12-21 00:00:00* Test Item Value Reference Range Interpretation Comme nts SARS-CoV-2 INTERPRETATION (test code = 92277) NEGATIVE SOURCE (test code = 12802) NASOPHARYNGEAL SARS-CoV-2 (COVID-19) by RT-PCR (HIGH RISK)2019-12-21 00:00:00* Test Item Value Reference Range Interpretation Comme nts SARS-CoV-2 INTERPRETATION (test code = 31230) NEGATIVE SOURCE (test code = 58266) NASOPHARYNGEAL SARS-CoV-2 (COVID-19) by RT-PCR (HIGH RISK)2019-12-21 00:00:00* Test Item Value Reference Range Interpretation Comme nts SARS-CoV-2 INTERPRETATION (test code = 20667) NEGATIVE SOURCE (test code = 59180) NASOPHARYNGEAL SARS-CoV-2 (COVID-19) by RT-PCR (HIGH RISK)2019-12-21 00:00:00* Test Item Value Reference Range Interpretation Comme nts SARS-CoV-2 INTERPRETATION (test code = 63682) NEGATIVE SOURCE (test code = 64248) NASOPHARYNGEAL HEMOGLOBIN [id number] 00:00:00* Test Item Value Reference Range Interpretation Comme nts HEMOGLOBIN A1c (test code = 4548-4) 5.0 %oftotalHgb CBC (INCLUDES DIFF/PLT)2019-11-06 00:00:00* Test Item Value Reference Range Interpretation Comme nts WHITE BLOOD CELL COUNT (test code = 6690-2) 8.4 Thousand/uL RED BLOOD CELL COUNT (test code = 789-8) 4.42 Million/uL HEMOGLOBIN (test code = 718-7) 14.0 g/dL HEMATOCRIT (test code = 4544-3) 41.2 % MCV (test code = 787-2) 93.2 fL MCH (test code = 785-6) 31.7 pg MCHC (test code = 786-4) 34.0 g/dL RDW (test code = 788-0) 11.6 % PLATELET COUNT (test code = 777-3) 310 Thousand/uL MPV (test code = 776-5) 10.0 fL ABSOLUTE NEUTROPHILS (test code = 751-8) 5300 cells/uL ABSOLUTE BAND NEUTROPHILS (test code = 02761-0) DNR cells/uL ABSOLUTE METAMYELOCYTES (vinod t code = 71083-6) DNR cells/uL ABSOLUTE MYELOCYTES (test code = 31209-1) DNR cells/uL ABSOLUTE PROMYELOCYTES (test code = 86187-3) DNR cells/uL ABSOLUTE LYMPHOCYTES (test code = 731-0) 2268 cells/uL ABSOLUTE MONOCYTES (test cod e = 742-7) 622 cells/uL ABSOLUTE EOSINOPHILS (test code = 711-2) 160 cells/uL ABSOLUTE BASOPHILS (test cod e = 704-7) 50 cells/uL ABSOLUTE BLASTS (test code = 34892-1) DNR cells/uL ABSOLUTE NUCLEATED RBC (test code = 30968-3) DNR cells/uL NEUTROPHILS (test code = 770-8) 63.1 % BAND NEUTROPHILS (test code = 764-1) DNR % METAMYELOCYTES (test code = 740-1) DNR % MYELOCYTES (test code = 749-2) DNR % PROMYELOCYTES (test code = 783-1) DNR % LYMPHOCYTES (test code = 736-9) 27.0 % REACTIVE LYMPHOCYTES (test code = 71817-6) DNR % MONOCYTES (test code = 5905-5) 7.4 % EOSINOPHILS (test code = 713-8) 1.9 % BASOPHILS (test code = 706-2) 0.6 % BLASTS (test code = 709-6) DNR % NUCLEATED RBC (test code = 38375-7) DNR /100WBC COMMENT(S) (test code = 8251-1) DNR COMPREHENSIVE METABOLIC [id number] 00:00:00* Test Item Value Reference Range Interpretation Comme nts GLUCOSE (test code = 2345-7) 113 mg/dL UREA NITROGEN (BUN) (test code = 3094-0) 12 mg/dL CREATININE (test code = 2160-0) 0.62 mg/dL eGFR NON-AFR. [place] (test code = 71475-6) 131 mL/min/1.73m2 eGFR (test code = 00259-8) 152 mL/min/1.73m2 BUN/CREATININE RATIO (test code = 3097-3) NOT APPLICABLE (calc) SODIUM (test code = 2951-2) 138 mmol/L POTASSIUM (test code = 2823-3) 3.9 mmol/L CHLORIDE (test code = 2075-0) 105 mmol/L CARBON DIOXIDE (test code = 2027-9) 26 mmol/L CALCIUM (test code = 48574-5) 9.5 mg/dL PROTEIN, TOTAL (test code = 2885-2) 7.1 g/dL ALBUMIN (test code = 1751-7) 4.7 g/dL GLOBULIN (test code = 12053-7) 2.4 g/dL(calc) ALBUMIN/GLOBULIN RATIO (test code = 1759-0) 2.0 (calc) BILIRUBIN, TOTAL (test code = 1975-2) 1.1 mg/dL ALKALINE PHOSPHATASE (test code = 6768-6) 53 U/L AST (test code = 1920-8) 13 U/L ALT (test code = 1742-6) 10 U/L LIPID [id number] 00:00:00* Test Item Value Reference Range Interpretation Comme nts CHOLESTEROL, TOTAL (test cod e = 2093-3) 141 mg/dL HDL CHOLESTEROL (test code = 5-9) 54 mg/dL TRIGLYCERIDES (test code = 2571-8) 62 mg/dL LDL-CHOLESTEROL (test code = 15441-0) 73 mg/dL(calc) CHOL/HDLC RATIO (test code = 9830-1) 2.6 (calc) NON HDL CHOLESTEROL (test co de = 62130-5) 87 mg/dL(calc) HEMOGLOBIN [id number] 00:00:00* Test Item Value Reference Range Interpretation Comme nts HEMOGLOBIN A1c (test code = 4548-4) 5.0 %oftotalHgb CBC (INCLUDES DIFF/PLT)2019-11-06 00:00:00* Test Item Value Reference Range Interpretation Comme nts WHITE BLOOD CELL COUNT (test code = 6690-2) 8.4 Thousand/uL RED BLOOD CELL COUNT (test code = 789-8) 4.42 Million/uL HEMOGLOBIN (test code = 718-7) 14.0 g/dL HEMATOCRIT (test code = 4544-3) 41.2 % MCV (test code = 787-2) 93.2 fL MCH (test code = 785-6) 31.7 pg MCHC (test code = 786-4) 34.0 g/dL RDW (test code = 788-0) 11.6 % PLATELET COUNT (test code = 777-3) 310 Thousand/uL MPV (test code = 776-5) 10.0 fL ABSOLUTE NEUTROPHILS (test code = 751-8) 5300 cells/uL ABSOLUTE BAND NEUTROPHILS (test code = 84253-8) DNR cells/uL ABSOLUTE METAMYELOCYTES (vinod t code = 29193-5) DNR cells/uL ABSOLUTE MYELOCYTES (test code = 33650-2) DNR cells/uL ABSOLUTE PROMYELOCYTES (test code = 81056-2) DNR cells/uL ABSOLUTE LYMPHOCYTES (test code = 731-0) 2268 cells/uL ABSOLUTE MONOCYTES (test cod e = 742-7) 622 cells/uL ABSOLUTE EOSINOPHILS (test code = 711-2) 160 cells/uL ABSOLUTE BASOPHILS (test cod e = 704-7) 50 cells/uL ABSOLUTE BLASTS (test code = 44371-2) DNR cells/uL ABSOLUTE NUCLEATED RBC (test code = 76936-7) DNR cells/uL NEUTROPHILS (test code = 770-8) 63.1 % BAND NEUTROPHILS (test code = 764-1) DNR % METAMYELOCYTES (test code = 740-1) DNR % MYELOCYTES (test code = 749-2) DNR % PROMYELOCYTES (test code = 783-1) DNR % LYMPHOCYTES (test code = 736-9) 27.0 % REACTIVE LYMPHOCYTES (test code = 69395-8) DNR % MONOCYTES (test code = 5905-5) 7.4 % EOSINOPHILS (test code = 713-8) 1.9 % BASOPHILS (test code = 706-2) 0.6 % BLASTS (test code = 709-6) DNR % NUCLEATED RBC (test code = 82920-0) DNR /100WBC COMMENT(S) (test code = 8251-1) DNR COMPREHENSIVE METABOLIC [id number] 00:00:00* Test Item Value Reference Range Interpretation Comme nts GLUCOSE (test code = 2345-7) 113 mg/dL UREA NITROGEN (BUN) (test code = 3094-0) 12 mg/dL CREATININE (test code = 2160-0) 0.62 mg/dL eGFR NON-AFR. [place] (test code = 88293-3) 131 mL/min/1.73m2 eGFR (test code = 99586-6) 152 mL/min/1.73m2 BUN/CREATININE RATIO (test code = 3097-3) NOT APPLICABLE (calc) SODIUM (test code = 2951-2) 138 mmol/L POTASSIUM (test code = 2823-3) 3.9 mmol/L CHLORIDE (test code = 2075-0) 105 mmol/L CARBON DIOXIDE (test code = 2027-9) 26 mmol/L CALCIUM (test code = 29605-7) 9.5 mg/dL PROTEIN, TOTAL (test code = 2885-2) 7.1 g/dL ALBUMIN (test code = 1751-7) 4.7 g/dL GLOBULIN (test code = 51066-0) 2.4 g/dL(calc) ALBUMIN/GLOBULIN RATIO (test code = 1759-0) 2.0 (calc) BILIRUBIN, TOTAL (test code = 1975-2) 1.1 mg/dL ALKALINE PHOSPHATASE (test code = 6768-6) 53 U/L AST (test code = 1920-8) 13 U/L ALT (test code = 1742-6) 10 U/L LIPID [id number] 00:00:00* Test Item Value Reference Range Interpretation Comme nts CHOLESTEROL, TOTAL (test cod e = 2093-3) 141 mg/dL HDL CHOLESTEROL (test code = 2085-9) 54 mg/dL TRIGLYCERIDES (test code = 2571-8) 62 mg/dL LDL-CHOLESTEROL (test code = 73230-2) 73 mg/dL(calc) CHOL/HDLC RATIO (test code = 9830-1) 2.6 (calc) NON HDL CHOLESTEROL (test co de = 64629-8) 87 mg/dL(calc) HEMOGLOBIN [id number] 00:00:00* Test Item Value Reference Range Interpretation Comme nts HEMOGLOBIN A1c (test code = 4548-4) 5.0 %oftotalHgb CBC (INCLUDES DIFF/PLT)2019-11-06 00:00:00* Test Item Value Reference Range Interpretation Comme nts WHITE BLOOD CELL COUNT (test code = 6690-2) 8.4 Thousand/uL RED BLOOD CELL COUNT (test code = 789-8) 4.42 Million/uL HEMOGLOBIN (test code = 718-7) 14.0 g/dL HEMATOCRIT (test code = 4544-3) 41.2 % MCV (test code = 787-2) 93.2 fL MCH (test code = 785-6) 31.7 pg MCHC (test code = 786-4) 34.0 g/dL RDW (test code = 788-0) 11.6 % PLATELET COUNT (test code = 777-3) 310 Thousand/uL MPV (test code = 776-5) 10.0 fL ABSOLUTE NEUTROPHILS (test code = 751-8) 5300 cells/uL ABSOLUTE BAND NEUTROPHILS (test code = 25031-6) DNR cells/uL ABSOLUTE METAMYELOCYTES (vinod t code = 13834-8) DNR cells/uL ABSOLUTE MYELOCYTES (test code = 56702-2) DNR cells/uL ABSOLUTE PROMYELOCYTES (test code = 34885-0) DNR cells/uL ABSOLUTE LYMPHOCYTES (test code = 731-0) 2268 cells/uL ABSOLUTE MONOCYTES (test cod e = 742-7) 622 cells/uL ABSOLUTE EOSINOPHILS (test code = 711-2) 160 cells/uL ABSOLUTE BASOPHILS (test cod e = 704-7) 50 cells/uL ABSOLUTE BLASTS (test code = 48795-2) DNR cells/uL ABSOLUTE NUCLEATED RBC (test code = 85635-4) DNR cells/uL NEUTROPHILS (test code = 770-8) 63.1 % BAND NEUTROPHILS (test code = 764-1) DNR % METAMYELOCYTES (test code = 740-1) DNR % MYELOCYTES (test code = 749-2) DNR % PROMYELOCYTES (test code = 783-1) DNR % LYMPHOCYTES (test code = 736-9) 27.0 % REACTIVE LYMPHOCYTES (test code = 20484-2) DNR % MONOCYTES (test code = 5905-5) 7.4 % EOSINOPHILS (test code = 713-8) 1.9 % BASOPHILS (test code = 706-2) 0.6 % BLASTS (test code = 709-6) DNR % NUCLEATED RBC (test code = 52870-5) DNR /100WBC COMMENT(S) (test code = 8251-1) DNR COMPREHENSIVE METABOLIC [id number] 00:00:00* Test Item Value Reference Range Interpretation Comme nts GLUCOSE (test code = 2345-7) 113 mg/dL UREA NITROGEN (BUN) (test code = 3094-0) 12 mg/dL CREATININE (test code = 2160-0) 0.62 mg/dL eGFR NON-AFR. [place] (test code = 76465-3) 131 mL/min/1.73m2 eGFR (test code = 85202-9) 152 mL/min/1.73m2 BUN/CREATININE RATIO (test code = 3097-3) NOT APPLICABLE (calc) SODIUM (test code = 2951-2) 138 mmol/L POTASSIUM (test code = 2823-3) 3.9 mmol/L CHLORIDE (test code = 2075-0) 105 mmol/L CARBON DIOXIDE (test code = 2027-9) 26 mmol/L CALCIUM (test code = 60174-1) 9.5 mg/dL PROTEIN, TOTAL (test code = 2885-2) 7.1 g/dL ALBUMIN (test code = 1751-7) 4.7 g/dL GLOBULIN (test code = 68004-2) 2.4 g/dL(calc) ALBUMIN/GLOBULIN RATIO (test code = 1759-0) 2.0 (calc) BILIRUBIN, TOTAL (test code = 1975-2) 1.1 mg/dL ALKALINE PHOSPHATASE (test code = 6768-6) 53 U/L AST (test code = 1920-8) 13 U/L ALT (test code = 1742-6) 10 U/L LIPID [id number] 00:00:00* Test Item Value Reference Range Interpretation Comme nts CHOLESTEROL, TOTAL (test cod e = 2093-3) 141 mg/dL HDL CHOLESTEROL (test code = 2085-9) 54 mg/dL TRIGLYCERIDES (test code = 2571-8) 62 mg/dL LDL-CHOLESTEROL (test code = 85561-3) 73 mg/dL(calc) CHOL/HDLC RATIO (test code = 9830-1) 2.6 (calc) NON HDL CHOLESTEROL (test co de = 73231-4) 87 mg/dL(calc) HIV 1/2 ANTIGEN/ANTIBODY,FOURTH GENERATION [id number] 00:00:00* Test Item Value Reference Range Interpretation Comme nts HIV AG/AB, 4TH GEN (test cod e = 88345-2) TNP NEISSERIA GONORRHOEAE RNA, [id number] 00:00:00* Test Item Value Reference Range Interpretation Comme nts NEISSERIA GONORRHOEAE RNA, T MA, UROGENITAL (test code = 30376-7) NOT DETECTED COMMENT (test code = ) HEPATITIS PANEL, ACUTE W/REFLEX TO [id number] 00:00:00* Test Item Value Reference Range Interpretation Comme nts HEPATITIS A IGM (test code = 16131-5) NON-REACTIVE HEPATITIS B SURFACE ANTIGEN (test code = 5196-1) NON-REACTIVE CONFIRMATION (test code = 7905-3) DNR HEPATITIS B CORE ANTIBODY (I GM) (test code = 81188-2) NON-REACTIVE HEPATITIS C ANTIBODY (test c ode = 03107-0) NON-REACTIVE SIGNAL TO CUT-OFF (test code = 23966-4) 0.03 RPR (MONITOR) W/REFL [id number] 00:00:00* Test Item Value Reference Range Interpretation Comme nts RPR (MONITOR) W/REFL TITER ( test code = 64675-7) TNP CHLAMYDIA TRACHOMATIS RNA, [id number] 00:00:00* Test Item Value Reference Range Interpretation Comme nts CHLAMYDIA TRACHOMATIS RNA, T MA, UROGENITAL (test code = 15278-8) NOT DETECTED COMMENT (test code = ) HIV 1/2 ANTIGEN/ANTIBODY,FOURTH GENERATION [id number] 00:00:00* Test Item Value Reference Range Interpretation Comme nts HIV AG/AB, 4TH GEN (test cod e = 42809-0) TNP NEISSERIA GONORRHOEAE RNA, [id number] 00:00:00* Test Item Value Reference Range Interpretation Comme nts NEISSERIA GONORRHOEAE RNA, T MA, UROGENITAL (test code = 50107-1) NOT DETECTED COMMENT (test code = ) HEPATITIS PANEL, ACUTE W/REFLEX TO [id number] 00:00:00* Test Item Value Reference Range Interpretation Comme nts HEPATITIS A IGM (test code = 88580-9) NON-REACTIVE HEPATITIS B SURFACE ANTIGEN (test code = 5196-1) NON-REACTIVE CONFIRMATION (test code = 7905-3) DNR HEPATITIS B CORE ANTIBODY (I GM) (test code = 92411-7) NON-REACTIVE HEPATITIS C ANTIBODY (test c ode = 23944-4) NON-REACTIVE SIGNAL TO CUT-OFF (test code = 93364-3) 0.03 RPR (MONITOR) W/REFL [id number] 00:00:00* Test Item Value Reference Range Interpretation Comme nts RPR (MONITOR) W/REFL TITER ( test code = 72086-3) TNP CHLAMYDIA TRACHOMATIS RNA, [id number] 00:00:00* Test Item Value Reference Range Interpretation Comme nts CHLAMYDIA TRACHOMATIS RNA, T MA, UROGENITAL (test code = 00773-3) NOT DETECTED COMMENT (test code = ) HIV 1/2 ANTIGEN/ANTIBODY,FOURTH GENERATION [id number] 00:00:00* Test Item Value Reference Range Interpretation Comme nts HIV AG/AB, 4TH GEN (test cod e = 06873-6) TNP NEISSERIA GONORRHOEAE RNA, [id number] 00:00:00* Test Item Value Reference Range Interpretation Comme nts NEISSERIA GONORRHOEAE RNA, T MA, UROGENITAL (test code = 67945-8) NOT DETECTED COMMENT (test code = ) HEPATITIS PANEL, ACUTE W/REFLEX TO [id number] 00:00:00* Test Item Value Reference Range Interpretation Comme nts HEPATITIS A IGM (test code = 35503-6) NON-REACTIVE HEPATITIS B SURFACE ANTIGEN (test code = 5196-1) NON-REACTIVE CONFIRMATION (test code = 7905-3) DNR HEPATITIS B CORE ANTIBODY (I GM) (test code = 38015-8) NON-REACTIVE HEPATITIS C ANTIBODY (test c ode = 59341-0) NON-REACTIVE SIGNAL TO CUT-OFF (test code = 45376-1) 0.03 RPR (MONITOR) W/REFL [id number] 00:00:00* Test Item Value Reference Range Interpretation Comme nts RPR (MONITOR) W/REFL TITER ( test code = 39601-8) TNP CHLAMYDIA TRACHOMATIS RNA, [id number] 00:00:00* Test Item Value Reference Range Interpretation Comme nts CHLAMYDIA TRACHOMATIS RNA, T MA, UROGENITAL (test code = 11338-1) NOT DETECTED COMMENT (test code = ) VAGINAL PATHOGENS DNA [id number] 00:00:00* Test Item Value Reference Range Interpretation Comme nts SUZE SPECIES (test code = ) POSITIVE G. VAGINALIS (test code = 37604) NEGATIVE T. VAGINALIS (test code = 26667) NEGATIVE VAGINAL PATHOGENS DNA [id number] 00:00:00* Test Item Value Reference Range Interpretation Comme nts SUZE SPECIES (test code = ) POSITIVE G. VAGINALIS (test code = 69642) NEGATIVE T. VAGINALIS (test code = 06366) NEGATIVE ACUTE HEPATITIS [id number] 00:00:00* Test Item Value Reference Range Interpretation Comme nts HEPATITIS A IgM (test code = 26994) NON-REACTIVE HEPATITIS B CORE IgM (test c ode = 4644) NON-REACTIVE HEPATITIS B SURF AG (test co de = 2739) NON-REACTIVE HEPATITIS C ANTIBODY (test c ode = 4675) NON-REACTIVE HCV INDEX (test code = 30601) 0.08 INTERPRETATION HEPATITIS A: (test code = 2552) (NOTE) INTERPRETATION HEPATITIS B: (test code = 07103) (NOTE) INTERPRETATION HEPATITIS C: (test code = 72873) (NOTE) ACUTE HEPATITIS [id number] 00:00:00* Test Item Value Reference Range Interpretation Comme nts HEPATITIS A IgM (test code = 90399) NON-REACTIVE HEPATITIS B CORE IgM (test c ode = 4644) NON-REACTIVE HEPATITIS B SURF AG (test co de = 2739) NON-REACTIVE HEPATITIS C ANTIBODY (test c ode = 4675) NON-REACTIVE HCV INDEX (test code = 47469) 0.08 INTERPRETATION HEPATITIS A: (test code = 2552) (NOTE) INTERPRETATION HEPATITIS B: (test code = 14797) (NOTE) INTERPRETATION HEPATITIS C: (test code = 82389) (NOTE) HIV AB/AG COMBO RFLX [id number] 00:00:00* Test Item Value Reference Range Interpretation Comme nts HIV 1/2 4TH GEN, RFLX CONF ( test code = 3514) NON-REACTIVE HIV AB/AG COMBO RFLX [id number] 00:00:00* Test Item Value Reference Range Interpretation Comme nts HIV 1/2 4TH GEN, RFLX CONF ( test code = 3514) NON-REACTIVE [id number] 00:00:00* Test Item Value Reference Range Interpretation Comme nts RPR RESULT (test code = 3501) NON-REACTIVE RPR TITER (test code = 3500) NOT INDIC. TITER [id number] 00:00:00* Test Item Value Reference Range Interpretation Comme nts RPR RESULT (test code = 3501) NON-REACTIVE RPR TITER (test code = 3500) NOT INDIC. TITER [id number] 00:00:00* Test Item Value Reference Range Interpretation Comme nts RPR RESULT (test code = 3501) NON-REACTIVE RPR TITER (test code = 3500) NOT INDIC. TITER VAGINAL PATHOGENS DNA [id number] 00:00:00* Test Item Value Reference Range Interpretation Comme nts SUZE SPECIES (test code = 85179) POSITIVE G. VAGINALIS (test code = 99143) NEGATIVE T. VAGINALIS (test code = 25379) NEGATIVE VAGINAL PATHOGENS DNA [id number] 00:00:00* Test Item Value Reference Range Interpretation Comme nts SUZE SPECIES (test code = 34878) POSITIVE G. VAGINALIS (test code = 13174) NEGATIVE T. VAGINALIS (test code = 64153) NEGATIVE ACUTE HEPATITIS [id number] 00:00:00* Test Item Value Reference Range Interpretation Comme nts HEPATITIS A IgM (test code = 25644) NON-REACTIVE HEPATITIS B CORE IgM (test c ode = 4644) NON-REACTIVE HEPATITIS B SURF AG (test co de = 2739) NON-REACTIVE HEPATITIS C ANTIBODY (test c ode = 4675) NON-REACTIVE HCV INDEX (test code = 61935) 0.08 INTERPRETATION HEPATITIS A: (test code = 2552) (NOTE) INTERPRETATION HEPATITIS B: (test code = 43453) (NOTE) INTERPRETATION HEPATITIS C: (test code = 84292) (NOTE) ACUTE HEPATITIS [id number] 00:00:00* Test Item Value Reference Range Interpretation Comme nts HEPATITIS A IgM (test code = 11017) NON-REACTIVE HEPATITIS B CORE IgM (test c ode = 4644) NON-REACTIVE HEPATITIS B SURF AG (test co de = 2739) NON-REACTIVE HEPATITIS C ANTIBODY (test c ode = 4675) NON-REACTIVE HCV INDEX (test code = 33848) 0.08 INTERPRETATION HEPATITIS A: (test code = 2552) (NOTE) INTERPRETATION HEPATITIS B: (test code = 45347) (NOTE) INTERPRETATION HEPATITIS C: (test code = 65016) (NOTE) HIV AB/AG COMBO RFLX [id number] 00:00:00* Test Item Value Reference Range Interpretation Comme nts HIV 1/2 4TH GEN, RFLX CONF ( test code = 3514) NON-REACTIVE HIV AB/AG COMBO RFLX [id number] 00:00:00* Test Item Value Reference Range Interpretation Comme nts HIV 1/2 4TH GEN, RFLX CONF ( test code = 3514) NON-REACTIVE [id number] 00:00:00* Test Item Value Reference Range Interpretation Comme nts RPR RESULT (test code = 3501) NON-REACTIVE RPR TITER (test code = 3500) NOT INDIC. TITER [id number] 00:00:00* Test Item Value Reference Range Interpretation Comme nts RPR RESULT (test code = 3501) NON-REACTIVE RPR TITER (test code = 3500) NOT INDIC. TITER [id number] 00:00:00* Test Item Value Reference Range Interpretation Comme nts RPR RESULT (test code = 3501) NON-REACTIVE RPR TITER (test code = 3500) NOT INDIC. TITER VAGINAL PATHOGENS DNA [id number] 00:00:00* Test Item Value Reference Range Interpretation Comme nts SUZE SPECIES (test code = 56359) POSITIVE G. VAGINALIS (test code = 23107) NEGATIVE T. VAGINALIS (test code = 08336) NEGATIVE VAGINAL PATHOGENS DNA [id number] 00:00:00* Test Item Value Reference Range Interpretation Comme nts SUZE SPECIES (test code = 77626) POSITIVE G. VAGINALIS (test code = 55617) NEGATIVE T. VAGINALIS (test code = 63769) NEGATIVE ACUTE HEPATITIS [id number] 00:00:00* Test Item Value Reference Range Interpretation Comme nts HEPATITIS A IgM (test code = 92910) NON-REACTIVE HEPATITIS B CORE IgM (test c ode = 4644) NON-REACTIVE HEPATITIS B SURF AG (test co de = 2739) NON-REACTIVE HEPATITIS C ANTIBODY (test c ode = 4675) NON-REACTIVE HCV INDEX (test code = 76139) 0.08 INTERPRETATION HEPATITIS A: (test code = 2552) (NOTE) INTERPRETATION HEPATITIS B: (test code = 59025) (NOTE) INTERPRETATION HEPATITIS C: (test code = 64736) (NOTE) ACUTE HEPATITIS [id number] 00:00:00* Test Item Value Reference Range Interpretation Comme nts HEPATITIS A IgM (test code = 02738) NON-REACTIVE HEPATITIS B CORE IgM (test c ode = 4644) NON-REACTIVE HEPATITIS B SURF AG (test co de = 2739) NON-REACTIVE HEPATITIS C ANTIBODY (test c ode = 4675) NON-REACTIVE HCV INDEX (test code = 03515) 0.08 INTERPRETATION HEPATITIS A: (test code = 2552) (NOTE) INTERPRETATION HEPATITIS B: (test code = 44069) (NOTE) INTERPRETATION HEPATITIS C: (test code = 07688) (NOTE) HIV AB/AG COMBO RFLX [id number] 00:00:00* Test Item Value Reference Range Interpretation Comme nts HIV 1/2 4TH GEN, RFLX CONF ( test code = 3514) NON-REACTIVE HIV AB/AG COMBO RFLX [id number] 00:00:00* Test Item Value Reference Range Interpretation Comme nts HIV 1/2 4TH GEN, RFLX CONF ( test code = 3514) NON-REACTIVE [id number] 00:00:00* Test Item Value Reference Range Interpretation Comme nts RPR RESULT (test code = 3501) NON-REACTIVE RPR TITER (test code = 3500) NOT INDIC. TITER [id number] 00:00:00* Test Item Value Reference Range Interpretation Comme nts RPR RESULT (test code = 3501) NON-REACTIVE RPR TITER (test code = 3500) NOT INDIC. TITER [id number] 00:00:00* Test Item Value Reference Range Interpretation Comme nts RPR RESULT (test code = 3501) NON-REACTIVE RPR TITER (test code = 3500) NOT INDIC. TITER CHLAMYDIA, AMPLIFIED, [id number] 00:00:00* Test Item Value Reference Range Interpretation Comme nts CHLAMYDIA, TMA (test code = 86542) NEGATIVE CHLAMYDIA, AMPLIFIED, [id number] 00:00:00* Test Item Value Reference Range Interpretation Comme nts CHLAMYDIA, TMA (test code = 99830) NEGATIVE GC, AMPLIFIED, [id number] 00:00:00* Test Item Value Reference Range Interpretation Comme nts GONORRHEA, TMA (test code = 31232) NEGATIVE GC, AMPLIFIED, [id number] 00:00:00* Test Item Value Reference Range Interpretation Comme nts GONORRHEA, TMA (test code = 50503) NEGATIVE CHLAMYDIA, AMPLIFIED, [id number] 00:00:00* Test Item Value Reference Range Interpretation Comme nts CHLAMYDIA, TMA (test code = 88422) NEGATIVE CHLAMYDIA, AMPLIFIED, [id number] 00:00:00* Test Item Value Reference Range Interpretation Comme nts CHLAMYDIA, TMA (test code = 01860) NEGATIVE GC, AMPLIFIED, [id number] 00:00:00* Test Item Value Reference Range Interpretation Comme nts GONORRHEA, TMA (test code = 06338) NEGATIVE GC, AMPLIFIED, [id number] 00:00:00* Test Item Value Reference Range Interpretation Comme nts GONORRHEA, TMA (test code = 39146) NEGATIVE CHLAMYDIA, AMPLIFIED, [id number] 00:00:00* Test Item Value Reference Range Interpretation Comme nts CHLAMYDIA, TMA (test code = 71923) NEGATIVE CHLAMYDIA, AMPLIFIED, [id number] 00:00:00* Test Item Value Reference Range Interpretation Comme nts CHLAMYDIA, TMA (test code = 91418) NEGATIVE GC, AMPLIFIED, [id number] 00:00:00* Test Item Value Reference Range Interpretation Comme nts GONORRHEA, TMA (test code = 08893) NEGATIVE GC, AMPLIFIED, [id number] 00:00:00* Test Item Value Reference Range Interpretation Comme nts GONORRHEA, TMA (test code = 16488) NEGATIVE
[2023-09-18] MEDS ORDERED: ONDANSETRON 4 MG/2 ML VIAL ONE (15:50)
[2023-09-18] MEDS ORDERED: LORazepam 2 MG/ML VIAL ONE (15:50)
[2023-09-18] MEDS ORDERED: NA CHLORIDE 0.9% 1,000 ML ONE (15:51)
[2023-09-18 16:26] LABS: Absolute Lymphocytes (CBC) 0.7 K/uL (0.7-4.9); Absolute Monocytes 0.2 K/uL (0.1-1.3); Absolute Neutrophil 7.1 K/uL (1.8-8.0); Basophils % 0.1 % (0-1.3); Hemoglobin 13.3 g/dL (12.0-15.0); Lymphocytes % 8.3 % (15.3-44.8); MCH 30.1 pg (27.0-35.0); MCHC 33.2 g/dL (32.0-36.0); MCV 90.7 fL (80-100); Neutrophils % 89.6 % (41.7-73.7); Platelets 427 thou/uL (152-406); RBC Red Blood Cell Count 4.41 M/uL (3.86-4.86); Red Cell Distribution Width 12.3 % (12.1-15.2)
[2023-09-18 16:27] LABS: Specific Gravity 1.017 (1.005-1.030)
[2023-09-18 16:37] LABS: Barbiturates NEGATIVE (NEGATIVE); Benzodiazepines NEGATIVE (NEGATIVE); Cocaine NEGATIVE (NEGATIVE); METHAMPHETAM NEGATIVE (NEGATIVE); Methadone NEGATIVE (NEGATIVE); Opiates NEGATIVE (NEGATIVE); Phencyclidine NEGATIVE (NEGATIVE); THC Cannibis POSITIVE (NEGATIVE)
[2023-09-18 16:47] LABS: ALT/SGPT 25 U/L (13-56); AST/SGOT 12 U/L (15-37); Albumin 4.2 g/dL (3.4-5.0); Albumin/Globulin Ratio 1.1 (1.1-1.8); Alkaline Phosphatase 74 U/L (45-117); Anion Gap 7.4 mEq/L (5.0-15.0); BUN Blood Urea Nitrogen 12 mg/dL (7-18); Bicarbonate 26 mEq/L (21-32); Bilirubin Direct 0.3 mg/dL (0-0.2); Bilirubin Total 1.3 mg/dL (0.2-1.0); Globulin 3.7 g/dL (2.3-3.5); Glomerular Filtration Rate 126 ml/min (=/>90); Glucose Level 113 mg/dL (74-106); Potassium 3.4 mEq/L (3.5-5.1); Protein, Total 7.9 g/dL (6.4-8.2); Sodium Level 138 mEq/L (136-145)
[2023-09-18 16:49] LABS: PT Prothrombin Time 12.6 SECONDS (9.5-12.5); PTT, Activated Partial Thromb 32.2 SECONDS (24.3-36.9); Protime INR 1.15
[2023-09-18 16:59] LABS: Blood Morphology Comment NOT SEEN (NOT SEEN); Platelet Estimate INCR; White Blood Cell Scan OK (OK)
--- NOTE | 2023-09-18 17:04 | ER ---
Nurse's Notes [facility] Name: Jessica Stevens Age: 22 yrs Sex: Female : 2000 Arrival Date: 09/18/2023 Time: 14:30 Bed 16 Private MD: Diagnosis: Opioid dependence with withdrawal Presentation: 09/17 14:59 Chief complaint: Patient states: Has been taking percocets daily, last intake was "a nj1 couple days ago" "i want to stop". States she feels bad, nauseous, has vomited 3 times today. "i feel bad, im hot" "my body hurts". Coronavirus screen: Vaccine status: Patient reports being unvaccinated. Ebola Screen: Patient denies travel to an Ebola-affected area in the 21 days before illness onset. Initial Sepsis Screen: Does the patient meet any 2 criteria? HR > 90 bpm. No. Patient's initial sepsis screen is negative. Does the patient have a suspected source of infection? No. Patient's initial sepsis screen is negative. Risk Assessment: Do you want to hurt yourself or someone else? Patient reports no desire to harm self or others. Onset of symptoms was September 17, 2023. 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 - Infectious Disease History:: Denies. - Social history:: Smoking status: Patient reports the use of cigarette tobacco products, smokes one-half pack cigarettes per day, Reported history of juuling and/or vaping. Screenin:10 [facility] ED Fall Risk Assessment (Adult) History of falling in the last 3 months, me1 including since admission No falls in past 3 months (0 pts) Confusion or Disorientation No (0 pts) Intoxicated or Sedated No (0 pts) Impaired Gait No (0 pts) Mobility Assist Device Used No (0 pt) Altered Elimination No (0 pt) Score/Fall Risk Level 0 - 2 = Low Risk Maintained a safe environment, Provided non-skid footwear, Hourly rounding (assess needs \\T\\ fall precautionary measures) done. Abuse screen: Denies threats or abuse. Nutritional screening: No deficits noted. Tuberculosis screening: No symptoms or risk factors identified. Assessment: 15:10 General: Appears distressed, uncomfortable, unkempt, well developed, well nourished, me1 Behavior is cooperative, appropriate for age, anxious, restless, Reports last took percocet a few days ago. States she hurts all over, n/v x 3 today. Wants to stop. Pain: Complains of pain in generalized Pain does not radiate. Pain currently is 10 out of 10 on a pain scale. Quality of pain is described as aching, Pain began gradually, 2-3 days ago. Is continuous. Neuro: Level of Consciousness is awake, alert, obeys commands, Oriented to person, place, time, situation, Appropriate for age. Cardiovascular: Capillary refill < 3 seconds Patient's skin is warm and dry. Respiratory: Airway is patent Respiratory effort is even, unlabored, Respiratory pattern is regular, symmetrical. GI: Reports nausea, vomiting. : No signs and/or symptoms were reported regarding the genitourinary system. EENT: No signs and/or symptoms were reported regarding the EENT system. Derm: Skin is intact, is healthy with good turgor, Skin is pink, warm \\T\\ dry. Musculoskeletal: Reports pain in generalized pain. Vital Signs: 14:59 BP 112 / 88; Pulse 97; Resp 16; Temp 98.9; Pulse Ox 100% ; Weight 63.5 kg; Height 5 ft. nj1 3 in. ; Pain 8/10; 16:20 BP 147 / 73; Pulse 98; Resp 16; Pulse Ox 95% on R/A; me1 17:19 BP 125 / 63; Pulse 102; Resp 18; Pulse Ox 96% on R/A; me1 14:59 Body Mass Index 24.80 (63.50 kg, 160.02 cm) nj1 14:59 Pain Scale: Adult nj1 ED Course: 14:31 Patient arrived in ED. rg4 14:44 Florence Dey PA-C is PHCP. sb4 14:44 Steven Tenorio MD is Attending Physician. sb4 15:01 Triage completed. nj1 15:02 Arm band placed on right wrist. nj1 15:08 Sarah Ravi, RN is Primary Nurse. me1 15:10 Patient has correct armband on for positive identification. Bed in low position. Call [facility] light in reach. Side rails up X 1. Provided Education on: POC. Verbalized understanding.. Client placed on continuous cardiac and pulse oximetry monitoring. NIBP monitoring applied. Pulse ox on. NIBP on. Warm blanket given. 15:10 No provider procedures requiring assistance completed. me1 15:39 Urinalysis w/ reflexes Sent. me1 15:39 Urine Drug Screen Sent. me1 15:39 Test, Urine Sent. me1 15:39 Urine collected: clean catch specimen, cloudy. me1 15:46 Initial lab(s) drawn, by ny, sent to lab. Inserted saline lock: 22 gauge in left [facility] antecubital area, using aseptic technique. 15:46 Acetaminophen Sent. me1 15:46 Basic Metabolic Panel Sent. me1 15:46 CBC with Diff Sent. me1 15:46 ETOH Level Sent. me1 15:46 Hepatic Function Sent. me1 15:46 PT-INR Sent. me1 15:46 Ptt, Activated Sent. me1 15:46 Salicylate Sent. me1 Administered Medications: 16:00 Drug: NS 0.9% IV 1000 ml IV at 1 bolus Per protocol; 1000 mL bolus Route: IV; Rate: 1 me1 bolus; Site: left antecubital; 17:19 Follow up: Response: No adverse reaction; IV Status: Completed infusion; IV Intake: me1 1000ml 16:00 Drug: Ativan IVP 1 mg IVP once Route: IVP; Site: left antecubital; me1 17:19 Follow up: Response: No adverse reaction; Marked relief of symptoms me1 16:00 Drug: Ondansetron IVP 4 mg IVP once; over 2 minutes Route: IVP; Site: left antecubital; me1 17:19 Follow up: Response: No adverse reaction; Nausea is decreased me1 Medication: 15:10 VIS not applicable for this client. me1 Intake: 17:19 IV: 1000ml; Total: 1000ml. me1 Outcome: 17:04 Discharge ordered by MD. esquivel 17:24 Patient left the ED. ny1 Signatures: Torie Nunez rg4 Florence Dey PASergoC PASergoC Marii Mary RN RN nj1 Sarah Ravi, RN RN me1
--- NOTE | 2023-09-18 17:04 | EDPHYS ---
Physician Documentation [facility] Name: Jessica Stevens Age: 22 yrs Sex: Female : 2000 Arrival Date: 09/18/2023 Time: 14:30 Bed 16 Private MD: ED Physician Steven Tenorio HPI: 09/17 16:41 This 22 yrs old Female presents to ER via Ambulatory with complaints of Drug sb4 Withdrawal. 16:41 patient presents with complaints of "pain all over" and nausea/vomiting. states that sb4 she has been taking percocet for several months now, but stopped 2 days ago. she was previously buying them from a friend. denies any suicidal or homicidal ideations, no hallucinations or delusions present. 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 - Infectious Disease History:: Denies. - Social history:: Smoking status: Patient reports the use of cigarette tobacco products, smokes one-half pack cigarettes per day, Reported history of juuling and/or vaping. ROS: 16:41 Constitutional: Negative for fever, chills, and weight loss, sb4 16:41 Abdomen/GI: Positive for nausea and vomiting, 16:41 MS/extremity: Positive for pain all over, 16:41 All other systems are negative, Exam: 16:41 Head/Face: Normocephalic, atraumatic. Eyes: Extra-ocular motions intact. Periorbital sb4 areas with no swelling, redness, or edema. ENT: Mucous membranes moist. Cardiovascular: Regular rate and rhythm with a normal S1 and S2. Respiratory: Lungs have equal breath sounds bilaterally, clear to auscultation and percussion. No rales, rhonchi or wheezes noted. No increased work of breathing, no retractions or nasal flaring. Abdomen/GI: Soft, non-tender, no distension. Skin: Warm, dry with normal turgor. Normal color with no rashes, no lesions, and no evidence of cellulitis. MS/ Extremity: Pulses equal, no cyanosis. Neurovascular intact. Full, normal range of motion. Neuro: Awake and alert, GCS 15, oriented to person, place, time, and situation. Motor strength 5/5 in all extremities. Sensory grossly intact. 16:41 Constitutional: The patient appears alert, awake, restless, Vital Signs: 14:59 BP 112 / 88; Pulse 97; Resp 16; Temp 98.9; Pulse Ox 100% ; Weight 63.5 kg; Height 5 ft. nj1 3 in. ; Pain 8/10; 16:20 BP 147 / 73; Pulse 98; Resp 16; Pulse Ox 95% on R/A; me1 17:19 BP 125 / 63; Pulse 102; Resp 18; Pulse Ox 96% on R/A; me1 14:59 Body Mass Index 24.80 (63.50 kg, 160.02 cm) nj1 14:59 Pain Scale: Adult nj1 MDM: 15:01 Patient medically screened. sb4 17:02 Data reviewed: vital signs, nurses notes, lab test result(s), EKG, and as a result, I sb4 will discharge patient. Counseling: I had a detailed discussion with the patient and/or guardian regarding the historical points, exam findings, and any diagnostic results supporting the discharge/admit diagnosis, lab results, to return to the emergency department if symptoms worsen or persist or if there are any questions or concerns that arise at home. 17:20 ED course: patient feels better, requesting to be discharged. 09/17 15:24 Order name: Acetaminophen; Complete Time: 16:49 [facility] 09/17 15:24 Order name: Basic Metabolic Panel; Complete Time: 16:49 [facility] 09/17 15:24 Order name: CBC with Diff; Complete Time: 17:00 4 09/17 15:24 Order name: ETOH Level; Complete Time: 16:44 sb4 09/17 15:24 Order name: Hepatic Function; Complete Time: 16:49 4 09/17 15:24 Order name: PT-INR; Complete Time: 16:51 4 09/17 15:24 Order name: Test, Urine; Complete Time: 16:38 sb4 09/17 15:24 Order name: Ptt, Activated; Complete Time: 16:51 4 09/17 15:24 Order name: Salicylate; Complete Time: 17:20 sb4 09/17 15:24 Order name: Urinalysis w/ reflexes; Complete Time: 17:05 sb4 09/17 15:24 Order name: Urine Drug Screen; Complete Time: 16:38 sb4 09/17 16:33 Order name: CBC Smear Scan; Complete Time: 17:00 EDMS 09/17 15:24 Order name: EKG; Complete Time: 15:25 sb4 09/17 15:24 Order name: EKG - Nurse/Tech; Complete Time: 16:20 sb4 09/17 15:24 Order name: IV Saline Lock; Complete Time: 15:46 sb4 09/17 15:24 Order name: Labs collected and sent; Complete Time: 15:46 sb4 09/17 15:24 Order name: Suicide Screening ([place]); Complete Time: 15:46 sb4 EC:30 Rate is 84 beats/min. Rhythm is regular, Sinus arrythmia. ME interval is normal at 130 sb4 msec. QRS interval is normal at 90 msec. QT interval is normal at 368 msec. No Q waves. T waves are Normal. No ST changes noted. Clinical impression: Normal ECG. Interpreted by me. Reviewed by me. Administered Medications: 16:00 Drug: NS 0.9% IV 1000 ml IV at 1 bolus Per protocol; 1000 mL bolus Route: IV; Rate: 1 me1 bolus; Site: left antecubital; 17:19 Follow up: Response: No adverse reaction; IV Status: Completed infusion; IV Intake: me1 1000ml 16:00 Drug: Ativan IVP 1 mg IVP once Route: IVP; Site: left antecubital; ks1 17:19 Follow up: Response: No adverse reaction; Marked relief of symptoms me1 16:00 Drug: Ondansetron IVP 4 mg IVP once; over 2 minutes Route: IVP; Site: left antecubital; ks1 17:19 Follow up: Response: No adverse reaction; Nausea is decreased me1 Disposition Summary: 09/18/23 17:04 Discharge Ordered Notes: Location: Home sb4 Problem: new sb4 Symptoms: have improved sb4 Condition: Stable sb4 Diagnosis - Opioid dependence with withdrawal sb4 Followup: sb4 - With: Emergency Department - When: As needed - Reason: Trouble breathing, Worsening of condition Discharge Instructions: - Discharge Summary Sheet sb4 - Opioid Withdrawal sb4 Forms: - Patient Portal Instructions sb4 - Leadership Thank You Letter sb4 - Work release form me1 Prescriptions: - ondansetron 8 mg Oral Tablet,disintegrating - take 1 tablet ORAL route every 12 hours; 12 tablet; Refills: 0, Product sb4 Selection Permitted Signatures: Dispatcher [employer] Florence Lewis PA-C PA-C sb4 Marii Bourne RN RN nj1 Sarah Ravi RN RN me1
[2023-09-18 17:05] LABS: Specific Gravity 1.017 (1.005-1.030); Urine Bacteria <20 /HPF (<20); Urine Bilirubin NEGATIVE (Negative); Urine Blood Negative (Negative); Urine Clarity Turbid (Clear); Urine Color Light-Yellow (Yellow); Urine Culture Reflex Order NOT NEEDED; Urine Glucose NEGATIVE (Negative); Urine Ketones NEGATIVE (Negative); Urine Microscopic Reflex YN ORDER UMIC; Urine Mucus Slight /HPF (None Seen); Urine Nitrite NEGATIVE (Negative); Urine Protein NEGATIVE (Negative); Urine RBC <5 /HPF (None Seen); Urine Urobilinogen Normal (Normal); Urine WBC <5 /HPF (<5)
[2023-09-18 17:53] VITALS: BP 125/63; TEMP 98.9; O2SAT 96
--- NOTE | 2023-09-19 14:39 | EKG ---
Test Date: 2023-09-18 Test Time: 16:13:45 Director Of Community Life: STEFANIA MEASUREMENT RESULTS: Intervals: Rate: 84 NM: 130 QRSD: 90 QT: 368 QTc: 434 [place]: P: 79 NM: 130 QRS: 74 T: 42 INTERPRETIVE STATEMENTS: Normal sinus rhythm with sinus arrhythmia Normal ECG Compared to ECG 10/02/2016 22:25:35 No significant changes Electronically Signed On 09-19-23 14:37:44 CDT by Dax Genao
== END 2023-09-18 17:24 | disposition home or self-care (01) ==
LOC: ER 14:30
DX: F11.23 Opioid dependence with withdrawal (principal)
CPT/HCPCS: 36415; 80048; 80076; 80143; 80179; 80307; 81001; 81025; 82077; 85025; 85610; 85730; 93005; 96361; 96374; 96375; 99284; J2405; J7030

== ENCOUNTER 2023-11-15 18:44 | Emergency (ER) | payer OTHER ==
--- OUTSIDE RECORDS SUMMARY | 2023-11-15 18:51 | XMS REPORT | Continuity of Care Document ---
Author Name Unknown Address [address] [facility] [address] th[address] Address [address] [facility] [address] [place] [address] Care Team Providers Care Acid Recovery Operator Name Role Phone Norma Pugh Primary Care Physician [phone] MARY GRACE Attending Clinician Unavailable Kalebu_Vianney Attending Clinician Unavailable MARY GRACE Admitting Clinician Unavailable Kalebu_Vianney Admitting Clinician Unavailable Medications Ordered Medication Name [...] No &lt 2022-0 6-28 00:00: 00 No &lt 2022-0 6-22 00:00: 00 No &lt 2022-0 6-22 00:00: 00 No Dovonex 0.005 % topical [...] No 1mg ibuprofen 400 mg tablet 0 6-20 00:00: 00 No 1mg &lt 2-0 620 00:00: 00 No &lt 2022-0 6- 00:00: 00 No &lt 2022-0 6- 00:00: 00 No mupirocin 2 % topical ointment 2021-0 4- 00:00: 00 No 1% Dose Unknown 2021-0 4- 00:00: 00 No mupirocin 2 % topical ointment 2021-0 4- 00:00: 00 No 1% Dose Unknown 2021-0 4-26 00:00: 00 No Dose Unknown 2-0 4-15 00:00: 00 No Dose Unknown 2-0 4-15 00:00: 00 No mupirocin 2 % topical ointment 2021-0 4-06 00:00: 00 No 1% sulfamethox azole 800 mg-trimetho prim 160 mg tablet 2021-0 4-06 00:00: 00 No 1mg mupirocin 2 % topical ointment 2-0 4-06 00:00: 00 No 1% sulfamethox azole 800 mg-trimetho prim 160 mg tablet 2021-0 4-06 00:00: 00 No 1mg metronidazo le 500 mg tablet 2021-0 4- 00:00: 00 No 1mg metronidazo le 500 mg tablet 2021-0 4- 00:00: 00 No 1mg doxycycline hyclate 100 mg tablet 2022-0 3-29 00:00: 00 No 1mg doxycycline hyclate 100 mg tablet 0 3-29 00:00: 00 No 1mg Dose Unknown 2020-05 2-22 00:00: 00 No Dose Unknown 2020-05 2-22 00:00: 00 No doxycycline hyclate 100 mg tablet 2020-05 2-21 00:00: 00 No 1mg doxycycline hyclate 100 mg tablet 2020-05 2- 00:00: 00 No 1mg Dose Unknown 2020-05 0-07 00:00: 00 No Dose Unknown 2020-05 0-07 00:00: 00 No azithromyci n 500 mg tablet 0 8- 00:00: 00 No 2mg azithromyci n 500 mg tablet 0 8- 00:00: 00 No 2mg Dose Unknown 6-07 00:00: 00 No Dose Unknown 6-07 00:00: 00 No Vitamin D3 25 mcg (1,000 unit) capsule 0 6-05 00:00: 00 No 1(1,000 unit) Vitamin D3 25 mcg (1,000 unit) capsule 0 6-05 00:00: 00 No 1(1,000 unit) azithromyci n 500 mg tablet 0 5- 00:00: 00 No 2mg azithromyci n 500 mg tablet 0 5- 00:00: 00 No 2mg Dose Unknown 0 4-15 00:00: 00 No Dose Unknown 0 4-15 00:00: 00 No Flagyl 500 mg tablet 0 2-11 00:00: 00 No 1mg Diflucan 150 mg tablet 0 2-11 00:00: 00 No 1mg Flagyl 500 mg tablet 0 2-11 00:00: 00 No 1mg Diflucan 150 mg tablet 0 2-11 00:00: 00 No 1mg metronidazo le 500 mg tablet 1 2-11 00:00: 00 No 1mg metronidazo le 500 mg tablet 2019-05 2-11 00:00: 00 No 1mg clindamycin 1 % topical gel 0 9-23 00:00: 00 No 1% clindamycin 1 % [...] Goal Plan of Care Note [code = 06287-6] Goal Plan of Care Note [code = 19603-3] Goal Plan of Care Note [code = 01065-0] Goal Plan of Care Note [code = 58932-2] Goal Plan of Care Note [code = 46309-7] Goal Plan of Care Note [code = 44098-8] Goal Plan of Care Note [code = 71824-9] Goal Plan of Care Note [code = 03039-6] Goal Plan of Care Note [code = 18450-0] Goal Plan of Care Note [code = 01548-4] Goal Plan of Care Note [code = 63228-5] Goal Plan of Care Note [code = 85978-5] Goal Plan of Care Note [code = 66628-0] Goal Plan of Care Note [code = 28766-4] Goal Plan of Care Note [code = 02265-5] Goal Plan of Care Note [code = 23431-9] Goal Plan of Care Note [code = 45792-1] Goal Plan of Care Note [code = 98872-4] Goal Plan of Care Note [code = 35364-2] Goal Plan of Care Note [code = 63814-3] Goal Plan of Care Note [code = 23285-9] Goal Plan of Care Note [code = 32215-3] Goal Plan of Care Note [code = 19018-8] Goal Plan of Care Note [code = 69480-0] Goal Plan of Care Note [code = 42263-6] Goal Plan of Care Note [code = 97599-9] Goal Plan of Care Note [code = 11808-3] Goal Plan of Care Note [code = 88127-3] Goal Plan of Care Note [code = 01850-8] Goal Plan of Care Note [code = 67710-0] Goal Plan of Care Note [code = 60630-9] Goal Plan of Care Note [code = 88998-3] Goal Plan of Care Note [code = 50192-0] Goal Plan of Care Note [code = 73924-3] Goal Plan of Care Note [code = 42471-0] Goal Plan of Care Note [code = 96841-7] Goal Plan of Care Note [code = 35002-4] Goal Plan of Care Note [code = 58215-0] Goal Plan of Care Note [code = 72337-7] Goal Plan of Care Note [code = 77110-3] Goal Plan of Care Note [code = 95333-7] Goal Plan of Care Note [code = 81685-7] Goal Plan of Care Note [code = 84038-0] Goal Plan of Care Note [code = 71850-6] Goal Plan of Care Note [code = 53758-3] Goal Plan of Care Note [code = 34169-6] Goal Plan of Care Note [code = 01502-5] Goal Plan of Care Note [code = 95724-7] Goal Plan of Care Note [code = 64127-0] Goal Plan of Care Note [code = 65511-5] Goal Plan of Care Note [code = 04263-7] Goal Plan of Care Note [code = 51286-2] Goal Plan of Care Note [code = 41063-1] Goal Plan of Care Note [code = 30363-2] Goal Plan of Care Note [code = 52282-1] Goal Plan of Care Note [code = 15664-7] Goal Plan of Care Note [code = 49728-7] Goal Plan of Care Note [code = 68127-0] Goal Plan of Care Note [code = 26748-6] Goal Plan of Care Note [code = 05365-9] Goal Plan of Care Note [code = 18322-8] Goal Plan of Care Note [code = 43140-5] Goal Plan of Care Note [code = 24392-6] Goal Plan of Care Note [code = 45604-7] Goal Plan of Care Note [code = 32647-5] Goal Plan of Care Note [code = 12881-7] Goal Plan of Care Note [code = 59993-4] Goal Plan of Care Note [code = 37601-1] Goal Plan of Care Note [code = 16059-9] Goal Plan of Care Note [code = 06987-0] Goal Plan of Care Note [code = 83580-1] Goal Plan of Care Note [code = 88970-3] Goal Plan of Care Note [code = 60205-7] Goal Plan of Care Note [code = 38607-6] Goal Plan of Care Note [code = 57256-9] Goal Plan of Care Note [code = 25589-7] Goal Plan of Care Note [code = 53424-4] Goal Plan of Care Note [code = 67815-3] Goal Plan of Care Note [code = 72233-0] Goal Plan of Care Note [code = 54814-3] Goal Plan of Care Note [code = 28741-9] Goal Plan of Care Note [code = 70799-7] Goal Plan of Care Note [code = 27571-6] Goal Plan of Care Note [code = 97775-6] Goal Plan of Care Note [code = 14709-8] Goal Plan of Care Note [code = 29159-4] Goal Plan of Care Note [code = 65745-3] Goal Plan of Care Note [code = 00396-8] Goal Plan of Care Note [code = 65283-2] Goal Plan of Care Note [code = 41845-0] Goal Plan of Care Note [code = 34275-0] Goal Plan of Care Note [code = 12159-0] Goal Plan of Care Note [code = 16464-4] Goal Plan of Care Note [code = 87577-8] Goal Plan of Care Note [code = 03917-5] Goal Plan of Care Note [code = 66233-6] Goal Plan of Care Note [code = 11802-1] Goal Plan of Care Note [code = 94664-0] Goal Plan of Care Note [code = 06949-6] Goal Plan of Care Note [code = 39250-9] Goal Plan of Care Note [code = 97647-8] Goal Plan of Care Note [code = 08684-9] Goal Plan of Care Note [code = 33989-0] Goal Plan of Care Note [code = 29496-4] Goal Plan of Care Note [code = 66830-8] Goal Plan of Care Note [code = 45442-2] Goal Plan of Care Note [code = 80779-1] Goal Plan of Care Note [code = 81680-2] Goal Plan of Care Note [code = 87748-2] Goal Plan of Care Note [code = 66599-2] Goal Plan of Care Note [code = 29888-7] Goal Plan of Care Note [code = 51092-7] Goal Plan of Care Note [code = 09035-0] Goal Plan of Care Note [code = 13466-5] Goal Plan of Care Note [code = 32531-6] Goal Plan of Care Note [code = 86165-0] Goal Plan of Care Note [code = 65283-0] Goal Plan of Care Note [code = 97755-1] Goal Plan of Care Note [code = 89429-8] Goal Plan of Care Note [code = 69729-1] Goal Plan of Care Note [code = 20279-8] Goal Plan of Care Note [code = 95969-5] Goal Plan of Care Note [code = 22543-7] Encounters Start Date/Time End Date/Time Encounter Type Admission Type Attending [facility] Care Department Encounter ID Source 2023-07-05 15:01:40 2023-07-05 15:01:40 Outpatient SFA SFA [id number] Jordan Trotter 2023-06-15 16:32:53 2023-06-15 16:32:53 Outpatient SFA SFA [id number] Jordan Trotter 2023-06-08 15:58:25 2023-06-08 15:58:25 Outpatient SFA SFA [id number] Jordan Trotter 2023-03-02 16:07:13 2023-03-02 16:07:13 Outpatient SFA SFA [id number] Jordan Trotter 2023-01-19 14:19:58 2023-01-19 14:19:58 Outpatient SFA SFA [id number] Jordan Hoff Sergo 2022-12-27 13:59:53 2022-12-27 13:59:53 Outpatient SFA SFA [id number] Jordan Hoff Sergo 2022-11-01 15:05:24 2022-11-01 15:05:24 Outpatient SFA SFA [id number] Jordan Hoff Sergo 2022-09-07 17:06:19 2022-09-07 17:06:19 Outpatient SFA SFA [id number] Jordan Hoff Sergo 2022-07-15 15:30:04 2022-07-15 15:30:04 Outpatient SFA SFA [id number] Jordan Hoff Sergo 2022-03-13 13:05:30 2022-03-13 13:05:30 Outpatient SFA SFA [id number] Jordan Hoff Sergo 2022-02-17 17:07:00 2022-02-17 17:07:00 Outpatient SFA SFA [id number] Jordan Hoff Sergo 2022-02-16 00:00:00 2022-02-16 00:00:00 Outpatient Visit [id number] 2022-01-19 00:00:00 2022-01-19 00:00:00 Outpatient Visit [id number] 2022-01-06 00:00:00 2022-01-06 00:00:00 Outpatient Visit [id number] 2021-12-14 00:00:00 2021-12-14 00:00:00 Outpatient LISTER_MELI SSA [facility] [id number] [facility] 2019-09-13 03:56:00 2019-09-13 03:56:00 Outpatient Raju_P MMG MMG [id number] [facility] Results Test Description Test Time Test Comments Results Result Co mments Source VAGINAL PATHOGENS DNA [id number] 12:18:43* Test Item Value Reference Range Interpretation Comme nts SUZE SPECIES (test code = 74138) NEGATIVE NEGATIVE G. VAGINALIS (test code = 49773) POSITIVE NEGATIVE A T. VAGINALIS (test code = 90431) NEGATIVE NEGATIVE Note: The [facility] irm VPIII Microbial Identification Testis a DNA probe test intended for use in the detectionand identification of Suze species, Gardnerellavaginalis and Trichomonas vaginalis nucleic acid. HIV 1/2 4TH GEN, RFLX [id number] 04:29:11* Test Item Value Reference Range Interpretation Comme nts HIV 1/2 4TH GEN, RFLX CONF (test code = 3514) NON-REACTIVE NON-REACTIVE UNLESS OTHERWISE INDICATED, ALL TESTING PERFORMED AT [facility] [address] [place] [address] GAS TRUCK DRIVER: IRIS GRAJEDA M.D. CLIA NUMBER [id number] [place]. [id number] 03:15:26* Test Item Value Reference Range Interpretation Comme nts RPR RESULT (test code = 3501) NON-REACTIVE NON-REACTIVE RPR TITER (test code = 3500) NOT INDIC. TITER NOT INDIC. CULTURE, [id number] 15:13:35SPECIMEN NUMBER: [id number] CULTURE, URINE SPECIMEN NUMBER: [id number] SPECIMEN COMMENT: URINE SOURCE: URINE REPORT STATUS: FINAL FINAL REPORT: 12/29/2022 50-100,000 CFU/ML MIXED MICROBIAL POPULATION P RESENT, NO PREDOMINATING ORGANISMS;PROBABLE CONTAMINANTS.CHLAMYDIA, NAAT, URINE 2022-12-28 20:15:36* Test Item Value Reference Range Interpretation Comme nts CHLAMYDIA, NAAT, URINE (test code = 05469) NEGATIVE NEGATIVE Testing is perfo rmed with [employer] MIGUEL ANGEL 6800/8800 systems usingreal-time polymerase chain reaction (PCR) method. A negative result does not exclude low level infection, specimensampling error, or collection error. GONORRHEA, NAAT, [id number] 20:15:36* Test Item Value Reference Range Interpretation Comme nts GONORRHEA, NAAT, URINE (test code = 41237) NEGATIVE NEGATIVE Testing is perfo rmed with Al[employer] MIUGEL ANGEL 6800/8800 systems usingreal-time polymerase chain reaction (PCR) method. A negative result does not exclude low level infection, specimensampling error, or collection error. VAGINAL PATHOGENS DNA [id number] 16:55:55* Test Item Value Reference Range Interpretation Comme nts SUZE SPECIES (test code = 45807) NEGATIVE NEGATIVE G. VAGINALIS (test code = 00044) NEGATIVE NEGATIVE T. VAGINALIS (test code = 45014) NEGATIVE NEGATIVE Note: The [facility] VPIII Microbial Identification Testis a DNA probe test intended for use in the detectionand identification of Suze species, Gardnerellavaginalis and Trichomonas vaginalis nucleic acid. RPR REFLEX TO T. PALLIDUM - [id number] 04:11:47* Test Item Value Reference Range Interpretation Comme nts RPR (test code = 94781) NON-REACTIVE NON-REACTIVE RPR TITER (test code = 3500) NOT INDIC. TITER NOT INDIC. HIV 1/2 4TH GEN, RFLX [id number] 03:57:15* Test Item Value Reference Range Interpretation Comme nts HIV 1/2 4TH GEN, RFLX CONF ( test code = 3514) NON-REACTIVE NON-REACTIVE HEPATITIS PANEL, [id number] 03:57:15* Test Item Value Reference Range Interpretation [...] infection. INTERPRETATION HEPATITIS B: (test code = 33125) (NOTE) Hepatitis B sero logy shows no evidence of past exposure to orcurrent infection with hepatitis B virus. No evidence of hepatitis Bimmunization is identified. INTERPRETATION HEPATITIS C: (test code = 95432) (NOTE) Hepatitis C sero logy shows no evidence of exposure to hepatitisC virus at this time. It can take up to 12 months after exposure tothe hepatitis C virus for antibodies to become detectable in the blood in certain patients. HEPATITIS A [id number] 03:57:15* Test Item Value Reference Range Interpretation Comme nts HEPATITIS A IgM (test code = 2728) NON-REACTIVE NON-REACTIVE UNLESS OTHERW ISE INDICATED, ALL TESTING PERFORMED AT [facility] [address] [place] [address] GAS TRUCK DRIVER: IRIS GRAJEDA M.D. [place] NUMBER [id number] [facility] [place]. [id number] VAGINAL PATHOGENS DNA [id number] 15:53:03* Test Item Value Reference Range Interpretation Comme nts SUZE SPECIES (test code = 66449) NEGATIVE NEGATIVE G. VAGINALIS (test code = 39591) POSITIVE NEGATIVE A T. VAGINALIS (test code = ) NEGATIVE NEGATIVE Note: The [facility] VPIII Microbial Identification Testis a DNA probe test intended for use in the detectionand identification of Suze species, Gardnerellavaginalis and Trichomonas vaginalis nucleic acid. [facility] has important pathology staff changes effective 07/14/2022. New pathology staff will provide uninterrupted, excellent patient care and clinical consultation. See URL: [email or web address]. UNLESS OTHERWISE INDICATED, ALL TESTING PERFORMED AT [facility] [address] [place] [address] GAS TRUCK DRIVER: IRIS GRAJEDA M.D. CLIA NUMBER [id number] [place]. [id number] CREATININE, PERITONEAL [id number] 15:09:30* Test Item Value Reference Range Interpretation Comme nts CREATININE, PERITONEAL FLUID (test code = 00694) TEST NOT PERFORMED Unable to perform testing due to a laboratory error.Charges adjusted as applicable. SOURCE (test code = 10013) TEST NOT PERFORMED TESTING REFERRED BY [facility], [address] [address] [place]. [id number] CLIA NO. [id number] TESTING PERFORMED AT [employer] [facility]. AT [address] [facility], [address] CLIA NO: [id number] VAGINAL PATHOGENS DNA [id number] 13:20:18* Test Item Value Reference Range Interpretation Comme nts SUZE SPECIES (test code = 42464) NEGATIVE NEGATIVE G. VAGINALIS (test code = 11429) POSITIVE NEGATIVE A T. VAGINALIS (test code = 70975) NEGATIVE NEGATIVE Note: The [facility] VPIII Microbial Identification Testis a DNA probe test intended for use in the detectionand identification of Suze species, Gardnerellavaginalis and Trichomonas vaginalis nucleic acid. [facility] has important pathology staff changes effective 07/14/2022. New pathology staff will provide uninterrupted, excellent patient care and clinical consultation. See URL: [email or web address]. UNLESS OTHERWISE INDICATED, ALL TESTING PERFORMED AT [facility] [address] [place] [address] GAS TRUCK DRIVER: IRIS GRAJEDA M.D. CLIA NUMBER [id number] [place] [id number] CT/NG, NAAT, [id number] 11:12:41* Test Item Value Reference Range Interpretation Comme nts CHLAMYDIA, NAAT, URINE (test code = 41360) NEGATIVE NEGATIVE Testing is perfo rmed with [employer] 6800/8800 systems usingreal-time polymerase chain reaction (PCR) method. A negative result does not exclude low level infection, specimensampling error, or collection error. GONORRHEA, NAAT, URINE (test code = 38885) NEGATIVE NEGATIVE Testing is perfo rmed with Allyssa MIGUEL ANGEL 6800/8800 systems usingreal-time polymerase chain reaction (PCR) method. A negative result does not exclude low level infection, specimensampling error, or collection error. HIV 1/2 4TH GEN, RFLX [id number] 06:38:56* Test Item Value Reference Range Interpretation Comme nts HIV 1/2 4TH GEN, RFLX CONF ( test code = 3514) NON-REACTIVE NON-REACTIVE HEPATITIS PANEL, [id number] 06:38:56* Test Item Value Reference Range Interpretation Comme nts HEPATITIS A IgM (test code = 93991) NON-REACTIVE NON-REACTIVE HEPATITIS B CORE IgM (test code = 4644) NON-REACTIVE NON-REACTIVE HEPATITIS B SURF AG (test code = 2739) NON-REACTIVE NON-REACTIVE HEPATITIS C ANTIBODY (test code = 4675) NON-REACTIVE NON-REACTIVE INTERPRETATION HEPATITIS A: (test code = 2552) (NOTE) Hepatitis A sero logy shows no evidence of acute hepatitis A. INTERPRETATION HEPATITIS B: (test code = 26582) (NOTE) Hepatitis B sero logy shows no evidence of acute hepatitis B andno indication of exposure to hepatitis B virus in the previous karla eight months. INTERPRETATION HEPATITIS C: (test code = 75217) (NOTE) Hepatitis C sero logy shows no evidence of exposure to hepatitisC virus at this time. It can take up to 12 months after exposure tothe hepatitis C virus for antibodies to become detectable in the blood in certain patients. [facility] has important pathology staff changes effective 07/14/2022. New pathology staff will provide uninterrupted, excellent patient care and clinical consultation. See URL: [email or web address]. UNLESS OTHERWISE INDICATED, ALL TESTING PERFORMED AT [facility] [address] [place] [address] GAS TRUCK DRIVER: JONNY FREY M.D. CLIA NUMBER [id number] [facility] [place]. [id number] 05:32:53* Test Item Value Reference Range Interpretation Comme nts RPR RESULT (test code = 3501) NON-REACTIVE NON-REACTIVE RPR TITER (test code = 3500) NOT INDIC. TITER NOT INDIC. PAP TEST, THINPREP, [id number] 15:51:45* Test Item Value Reference Range Interpretation Comme nts SOURCE: (test code = 8001) Cervical SLIDES: (test code = 8011) 1 LMP: (test code = 8021) 02/20/2022 SPECIMEN ADEQUACY: (test code = 65597) (NOTE) Satisfactory for evaluation. Endocervical cells/transformation zone component not identified. INTERPRETATION: (test code = 61656) NILM/NO EPITH. ABNORMALITY;SEE BELOW --- - NEGATIVE FOR INTRAEPITHELIAL LESION OR MALIGNANCY (NILM) ---- FRONT DESK MANAGER : (test code = 8101) RADHA Elliott(ASCP)IA C LOCATION: (test code = 88248) (NOTE) Specimens proces sed and interpreted at [facility], [address] [place] [address], , CLIA: [id number] CPT: (test code = 8140) (NOTE) 528[address] UNLESS OTH ERWISE INDICATED, COMPUTER AIDED AND FRONT DESK MANAGER SCREENING PERFORMED. The Pap test is a screening test with an inherent, but low probability of error. Your patient should be reminded to consult you immediately if she experiences any suspicious signs or symptoms, regardless of her Pap test result. An alternate report format containing images or consolidated prior Pap history is available as applicable. UNLESS OTHERWISE INDICATED, ALL TESTING PERFORMED [facility] [address] [place] [address] GAS TRUCK DRIVER: Jennifer MCNEIL NUMBER [id number] [place]. [id number] CT/NG, NAAT, [id number] 18:14:26* Test Item Value Reference Range Interpretation Comme nts GONORRHEA, NAAT (test code = 02306) POSITIVE NEGATIVE A IMPORTANT NO BEAR: SEE ANNOUNCEMENT AT [email or web address] Note: Assay methodology is nucleic acid amplification by oil processing technician mediated amplification (TMA) utilizing the Aptima Combo 2 Assay. CHLAMYDIA, NAAT (test code = 27077) NEGATIVE NEGATIVE IMPORTANT NO BEAR: SEE ANNOUNCEMENT AT [email or web address] Note: Assay methodology is nucleic acid amplification by oil processing technician mediated amplification (TMA) utilizing the Aptima Combo 2 Assay. TRICHOMONAS, NAAT, [id number] 15:11:22* Test Item Value Reference Range Interpretation Comme nts TRICHOMONAS, NAAT (test code = 43885) NEGATIVE NEGATIVE IMPORTANT NO BEAR: SEE ANNOUNCEMENT AT [email or web address] Note: Assay methodology is nucleic acid amplification by oil processing technician mediated amplification (TMA) and Hybridization Protection Assay (HPA) utilizing the [facility] APTIMA platform. A negative result does not exclude low level infection, specimensampling error, or collection error. UNLESS OTHERWISE INDICATED, [facility]FORMED [facility] [address] [place] [address] GAS TRUCK DRIVER: Jennifer MCNEILIA NUMBER [id number] [place]. [id number] 03:09:46* Test Item Value Reference Range Interpretation Comme nts RPR RESULT (test code = 3501) NON-REACTIVE NON-REACTIVE RPR TITER (test code = 3500) NOT INDIC. TITER NOT INDIC. HIV 1/2 4TH GEN, RFLX [id number] 02:57:16* Test Item Value Reference Range Interpretation Comme nts HIV 1/2 4TH GEN, RFLX CONF ( test code = 3514) NON-REACTIVE NON-REACTIVE HEPATITIS PANEL, [id number] 02:57:16* Test Item Value Reference Range Interpretation Comme nts HEPATITIS A IgM (test code = 10551) NON-REACTIVE NON-REACTIVE HEPATITIS B CORE IgM (test code = 4644) NON-REACTIVE NON-REACTIVE HEPATITIS B SURF AG (test code = 2739) NON-REACTIVE NON-REACTIVE HEPATITIS C ANTIBODY (test code = 4675) NON-REACTIVE NON-REACTIVE INTERPRETATION HEPATITIS A: (test code = 2552) (NOTE) Hepatitis A serology shows no evidence of acute hepatitis A. INTERPRETATION HEPATITIS B: (test code = 40933) (NOTE) Hepatitis B serology shows no evidence of acute hepatitis B andno indication of exposure to hepatitis B virus in the previous karla eight months. INTERPRETATION HEPATITIS C: (test code = 69650) (NOTE) Hepatitis C serology shows no evidence of exposure to hepatitisC virus at this time. It can take up to 12 months after exposure tothe hepatitis C virus for antibodies to become detectable in the blood in certain patients. [id number] 00:00:00* Test Item Value Reference Range Interpretation Comme nts RPR RESULT (test code = 3501) NON-REACTIVE RPR TITER (test code = 3500) NOT INDIC. TITER [id number] 00:00:00* Test Item Value Reference Range Interpretation Comme nts RPR RESULT (test code = 3501) NON-REACTIVE RPR TITER (test code = 3500) NOT INDIC. TITER [id number] 00:00:00* Test Item Value Reference Range Interpretation Comme nts RPR RESULT (test code = 3501) NON-REACTIVE RPR TITER (test code = 3500) NOT INDIC. TITER HIV AB/AG COMBO RFLX [id number] 00:00:00* Test Item Value Reference Range Interpretation Comme nts HIV 1/2 4TH GEN, RFLX CONF ( test code = 3514) NON-REACTIVE HIV AB/AG COMBO RFLX [id number] 00:00:00* Test Item Value Reference Range Interpretation Comme nts HIV 1/2 4TH GEN, RFLX CONF ( test code = 3514) NON-REACTIVE ACUTE HEPATITIS [id number] 00:00:00* Test Item Value Reference Range Interpretation Comme nts HEPATITIS A IgM (test code = 78394) NON-REACTIVE HEPATITIS B CORE IgM (test c ode = 4644) NON-REACTIVE HEPATITIS B SURF AG (test co de = 2739) NON-REACTIVE HEPATITIS C ANTIBODY (test c ode = 4675) NON-REACTIVE INTERPRETATION HEPATITIS A: (test code = 2552) (NOTE) INTERPRETATION HEPATITIS B: (test code = 43133) (NOTE) INTERPRETATION HEPATITIS C: (test code = 21701) (NOTE) ACUTE HEPATITIS [id number] 00:00:00* Test Item Value Reference Range Interpretation Comme nts HEPATITIS A IgM (test code = 42136) NON-REACTIVE HEPATITIS B CORE IgM (test c ode = 4644) NON-REACTIVE HEPATITIS B SURF AG (test co de = 2739) NON-REACTIVE HEPATITIS C ANTIBODY (test c ode = 4675) NON-REACTIVE INTERPRETATION HEPATITIS A: (test code = 2552) (NOTE) INTERPRETATION HEPATITIS B: (test code = 28580) (NOTE) INTERPRETATION HEPATITIS C: (test code = 07665) (NOTE) CT/NG, TMA, [id number] 00:00:00* Test Item Value Reference Range Interpretation Comme nts GONORRHEA, NAAT (test code = 59909) POSITIVE CHLAMYDIA, NAAT (test code = 83772) NEGATIVE CT/NG, TMA, [id number] 00:00:00* Test Item Value Reference Range Interpretation Comme nts GONORRHEA, NAAT (test code = 53301) POSITIVE CHLAMYDIA, NAAT (test code = 97003) NEGATIVE TRICHOMONAS, URINE, [id number] 00:00:00* Test Item Value Reference Range Interpretation Comme nts TRICHOMONAS, NAAT (test code = 61550) NEGATIVE TRICHOMONAS, URINE, [id number] 00:00:00* Test Item Value Reference Range Interpretation Comme nts TRICHOMONAS, NAAT (test code = 37232) NEGATIVE [id number] 00:00:00* Test Item Value Reference Range Interpretation Comme nts RPR RESULT (test code = 3501) NON-REACTIVE RPR TITER (test code = 3500) NOT INDIC. TITER [id number] 00:00:00* Test Item Value Reference Range Interpretation Comme nts RPR RESULT (test code = 3501) NON-REACTIVE RPR TITER (test code = 3500) NOT INDIC. TITER [id number] 00:00:00* Test Item Value Reference Range Interpretation Comme nts RPR RESULT (test code = 3501) NON-REACTIVE RPR TITER (test code = 3500) NOT INDIC. TITER HIV AB/AG COMBO RFLX [id number] 00:00:00* Test Item Value Reference Range Interpretation Comme nts HIV 1/2 4TH GEN, RFLX CONF ( test code = 3514) NON-REACTIVE HIV AB/AG COMBO RFLX [id number] 00:00:00* Test Item Value Reference Range Interpretation Comme nts HIV 1/2 4TH GEN, RFLX CONF ( test code = 3514) NON-REACTIVE ACUTE HEPATITIS [id number] 00:00:00* Test Item Value Reference Range Interpretation Comme nts HEPATITIS A IgM (test code = 18028) NON-REACTIVE HEPATITIS B CORE IgM (test c ode = 4644) NON-REACTIVE HEPATITIS B SURF AG (test co de = 2739) NON-REACTIVE HEPATITIS C ANTIBODY (test c ode = 4675) NON-REACTIVE INTERPRETATION HEPATITIS A: (test code = 2552) (NOTE) INTERPRETATION HEPATITIS B: (test code = 29924) (NOTE) INTERPRETATION HEPATITIS C: (test code = 48145) (NOTE) ACUTE HEPATITIS [id number] 00:00:00* Test Item Value Reference Range Interpretation Comme nts HEPATITIS A IgM (test code = 21392) NON-REACTIVE HEPATITIS B CORE IgM (test c ode = 4644) NON-REACTIVE HEPATITIS B SURF AG (test co de = 2739) NON-REACTIVE HEPATITIS C ANTIBODY (test c ode = 4675) NON-REACTIVE INTERPRETATION HEPATITIS A: (test code = 2552) (NOTE) INTERPRETATION HEPATITIS B: (test code = 76497) (NOTE) INTERPRETATION HEPATITIS C: (test code = 85850) (NOTE) CT/NG, TMA, [id number] 00:00:00* Test Item Value Reference Range Interpretation Comme nts GONORRHEA, NAAT (test code = 12629) POSITIVE CHLAMYDIA, NAAT (test code = 56133) NEGATIVE CT/NG, TMA, [id number] 00:00:00* Test Item Value Reference Range Interpretation Comme nts GONORRHEA, NAAT (test code = 28998) POSITIVE CHLAMYDIA, NAAT (test code = 14633) NEGATIVE TRICHOMONAS, URINE, [id number] 00:00:00* Test Item Value Reference Range Interpretation Comme nts TRICHOMONAS, NAAT (test code = 66728) NEGATIVE TRICHOMONAS, URINE, [id number] 00:00:00* Test Item Value Reference Range Interpretation Comme nts TRICHOMONAS, NAAT (test code = 96862) NEGATIVE VAGINAL PATHOGENS DNA [id number] 10:04:37* Test Item Value Reference Range Interpretation Comme nts SUZE SPECIES (test code = 87339) POSITIVE NEGATIVE A G. VAGINALIS (test code = 81037) NEGATIVE NEGATIVE T. VAGINALIS (test code = 58342) NEGATIVE NEGATIVE VAGINAL PATHOGENS DNA [id number] 00:00:00* Test Item Value Reference Range Interpretation Comme nts SUZE SPECIES (test code = 75887) POSITIVE G. VAGINALIS (test code = 23493) NEGATIVE T. VAGINALIS (test code = 82025) NEGATIVE VAGINAL PATHOGENS DNA [id number] 00:00:00* Test Item Value Reference Range Interpretation Comme nts SUZE SPECIES (test code = 59902) POSITIVE G. VAGINALIS (test code = 66534) NEGATIVE T. VAGINALIS (test code = 15180) NEGATIVE VAGINAL PATHOGENS DNA [id number] 00:00:00* Test Item Value Reference Range Interpretation Comme nts SUZE SPECIES (test code = 16288) POSITIVE G. VAGINALIS (test code = 27448) NEGATIVE T. VAGINALIS (test code = 35327) NEGATIVE VAGINAL PATHOGENS DNA [id number] 00:00:00* Test Item Value Reference Range Interpretation Comme nts SUZE SPECIES (test code = 06246) POSITIVE G. VAGINALIS (test code = 53469) NEGATIVE T. VAGINALIS (test code = 65024) NEGATIVE VAGINAL PATHOGENS DNA [id number] 00:00:00* Test Item Value Reference Range Interpretation Comme nts SUZE SPECIES (test code = 39857) POSITIVE G. VAGINALIS (test code = 82244) NEGATIVE T. VAGINALIS (test code = 77654) NEGATIVE VAGINAL PATHOGENS DNA [id number] 00:00:00* Test Item Value Reference Range Interpretation Comme nts SUZE SPECIES (test code = 41059) POSITIVE G. VAGINALIS (test code = 40927) NEGATIVE T. VAGINALIS (test code = 34133) NEGATIVE CHLAMYDIA, NAAT, [id number] 08:21:43* Test Item Value Reference Range Interpretation Comme nts CHLAMYDIA, NAAT (test code = 76408) NEGATIVE NEGATIVE IMPORTANT NO BEAR: SEE ANNOUNCEMENT AT [email or web address] Note: Assay methodology is nucleic acid amplification by oil processing technician mediated amplification (TMA) utilizing the Aptima Combo 2 Assay. GONORRHEA, NAAT, [id number] 08:21:43* Test Item Value Reference Range Interpretation Comme nts GONORRHEA, NAAT (test code = 94938) NEGATIVE NEGATIVE IMPORTANT NO BEAR: SEE ANNOUNCEMENT AT [email or web address] Note: Assay methodology is nucleic acid amplification by oil processing technician mediated amplification (TMA) utilizing the Aptima Combo 2 Assay. CHLAMYDIA, AMPLIFIED, [id number] 00:00:00* Test Item Value Reference Range Interpretation Comme nts CHLAMYDIA, NAAT (test code = 93825) NEGATIVE CHLAMYDIA, AMPLIFIED, [id number] 00:00:00* Test Item Value Reference Range Interpretation Comme nts CHLAMYDIA, NAAT (test code = 96081) NEGATIVE GC, AMPLIFIED, [id number] 00:00:00* Test Item Value Reference Range Interpretation Comme nts GONORRHEA, NAAT (test code = 57842) NEGATIVE GC, AMPLIFIED, [id number] 00:00:00* Test Item Value Reference Range Interpretation Comme nts GONORRHEA, NAAT (test code = 33862) NEGATIVE CHLAMYDIA, AMPLIFIED, [id number] 00:00:00* Test Item Value Reference Range Interpretation Comme nts CHLAMYDIA, NAAT (test code = 62262) NEGATIVE CHLAMYDIA, AMPLIFIED, [id number] 00:00:00* Test Item Value Reference Range Interpretation Comme nts CHLAMYDIA, NAAT (test code = 87251) NEGATIVE GC, AMPLIFIED, [id number] 00:00:00* Test Item Value Reference Range Interpretation Comme nts GONORRHEA, NAAT (test code = 96633) NEGATIVE GC, AMPLIFIED, [id number] 00:00:00* Test Item Value Reference Range Interpretation Comme nts GONORRHEA, NAAT (test code = 36686) NEGATIVE CHLAMYDIA, AMPLIFIED, [id number] 00:00:00* Test Item Value Reference Range Interpretation Comme nts CHLAMYDIA, NAAT (test code = 88713) NEGATIVE CHLAMYDIA, AMPLIFIED, [id number] 00:00:00* Test Item Value Reference Range Interpretation Comme nts CHLAMYDIA, NAAT (test code = 71148) NEGATIVE GC, AMPLIFIED, [id number] 00:00:00* Test Item Value Reference Range Interpretation Comme nts GONORRHEA, NAAT (test code = 71992) NEGATIVE GC, AMPLIFIED, [id number] 00:00:00* Test Item Value Reference Range Interpretation Comme nts GONORRHEA, NAAT (test code = 28373) NEGATIVE HEMOGLOBIN [id number] 06:10:22* Test Item Value Reference Range Interpretation Comme nts HEMOGLOBIN A1c (test code = 96792) 5.2 % 4.2-5.6 CBC W/AUTO DIFF WITH [id number] 05:31:54* Test Item Value Reference Range Interpretation [...] 0.00-0.10 ABS NUCLEATED RBCS (test code = 84481) 0.00 K/UL 0.00-0.11 HIV 1/2 4TH GEN, RFLX [id number] 04:04:35* Test Item Value Reference Range Interpretation Comme nts HIV 1/2 4TH GEN, RFLX CONF ( test code = 3514) NON-REACTIVE NON-REACTIVE HEPATITIS PANEL, [id number] 04:04:35* Test Item Value Reference Range Interpretation Comme nts HEPATITIS A IgM (test code = 35262) NON-REACTIVE NON-REACTIVE HEPATITIS B CORE IgM (test code = 4644) NON-REACTIVE NON-REACTIVE HEPATITIS B SURF AG (test code = 2739) NON-REACTIVE NON-REACTIVE HEPATITIS C ANTIBODY (test code = 4675) NON-REACTIVE NON-REACTIVE INTERPRETATION HEPATITIS A: (test code = 2552) (NOTE) Hepatitis A serology shows no evidence of acute hepatitis A. INTERPRETATION HEPATITIS B: (test code = 09014) (NOTE) Hepatitis B serology shows no evidence of acute hepatitis B andno indication of exposure to hepatitis B virus in the previous karla eight months. INTERPRETATION HEPATITIS C: (test code = 94451) (NOTE) Hepatitis C serology shows no evidence of exposure to hepatitisC virus at this time. It can take up to 12 months after exposure tothe hepatitis C virus for antibodies to become detectable in the blood in certain patients. [id number] 02:50:30* Test Item Value Reference Range Interpretation Comme nts RPR RESULT (test code = 3501) NON-REACTIVE NON-REACTIVE RPR TITER (test code = 3500) NOT INDIC. TITER NOT INDIC. UNLESS OTHERWISE INDICATED, ALL [facility] [address] [place] [address] [employer]: JONNY FREY M.D. [place] NUMBER [id number] [facility] [place]. [id number] CBC W/AUTO [id number] 00:00:00* Test Item Value Reference Range Interpretation [...] ABS NUCLEATED RBCS (test cod e = 18639) 0.00 K/UL CBC W/AUTO [id number] 00:00:00* Test Item Value Reference Range Interpretation [...] ABS NUCLEATED RBCS (test cod e = 79063) 0.00 K/UL CBC W/AUTO [id number] 00:00:00* Test Item Value Reference Range Interpretation [...] ABS NUCLEATED RBCS (test cod e = 00801) 0.00 K/UL HEMOGLOBIN [id number] 00:00:00* Test Item Value Reference Range Interpretation Comme nts HEMOGLOBIN A1c (test code = 76138) 5.2 % HEMOGLOBIN [id number] 00:00:00* Test Item Value Reference Range Interpretation Comme nts HEMOGLOBIN A1c (test code = 82545) 5.2 % HEMOGLOBIN [id number] 00:00:00* Test Item Value Reference Range Interpretation Comme nts HEMOGLOBIN A1c (test code = 35349) 5.2 % HIV AB/AG COMBO RFLX [id number] 00:00:00* Test Item Value Reference Range Interpretation Comme nts HIV 1/2 4TH GEN, RFLX CONF ( test code = 3514) NON-REACTIVE HIV AB/AG COMBO RFLX [id number] 00:00:00* Test Item Value Reference Range Interpretation Comme nts HIV 1/2 4TH GEN, RFLX CONF ( test code = 3514) NON-REACTIVE ACUTE HEPATITIS [id number] 00:00:00* Test Item Value Reference Range Interpretation Comme nts HEPATITIS A IgM (test code = 52780) NON-REACTIVE HEPATITIS B CORE IgM (test c ode = 4644) NON-REACTIVE HEPATITIS B SURF AG (test co de = 2739) NON-REACTIVE HEPATITIS C ANTIBODY (test c ode = 4675) NON-REACTIVE INTERPRETATION HEPATITIS A: (test code = 2552) (NOTE) INTERPRETATION HEPATITIS B: (test code = 49756) (NOTE) INTERPRETATION HEPATITIS C: (test code = 95770) (NOTE) ACUTE HEPATITIS [id number] 00:00:00* Test Item Value Reference Range Interpretation Comme nts HEPATITIS A IgM (test code = 46734) NON-REACTIVE HEPATITIS B CORE IgM (test c ode = 4644) NON-REACTIVE HEPATITIS B SURF AG (test co de = 5779) NON-REACTIVE HEPATITIS C ANTIBODY (test c ode = 4607) NON-REACTIVE INTERPRETATION HEPATITIS A: (test code = 2552) (NOTE) INTERPRETATION HEPATITIS B: (test code = 50550) (NOTE) INTERPRETATION HEPATITIS C: (test code = 08829) (NOTE) [id number] 00:00:00* Test Item Value Reference Range Interpretation Comme nts RPR RESULT (test code = 3501) NON-REACTIVE RPR TITER (test code = 3500) NOT INDIC. TITER [id number] 00:00:00* Test Item Value Reference Range Interpretation Comme nts RPR RESULT (test code = 3501) NON-REACTIVE RPR TITER (test code = 3500) NOT INDIC. TITER [id number] 00:00:00* Test Item Value Reference Range Interpretation Comme nts RPR RESULT (test code = 3501) NON-REACTIVE RPR TITER (test code = 3500) NOT INDIC. TITER CBC W/AUTO [id number] 00:00:00* Test Item Value Reference Range Interpretation [...] ABS NUCLEATED RBCS (test cod e = 95350) 0.00 K/UL CBC W/AUTO [id number] 00:00:00* Test Item Value Reference Range Interpretation [...] ABS NUCLEATED RBCS (test cod e = 21736) 0.00 K/UL CBC W/AUTO [id number] 00:00:00* Test Item Value Reference Range Interpretation [...] ABS NUCLEATED RBCS (test cod e = 91120) 0.00 K/UL HEMOGLOBIN [id number] 00:00:00* Test Item Value Reference Range Interpretation Comme nts HEMOGLOBIN A1c (test code = 29118) 5.2 % HEMOGLOBIN [id number] 00:00:00* Test Item Value Reference Range Interpretation Comme nts HEMOGLOBIN A1c (test code = 32507) 5.2 % HEMOGLOBIN [id number] 00:00:00* Test Item Value Reference Range Interpretation Comme nts HEMOGLOBIN A1c (test code = 45555) 5.2 % HIV AB/AG COMBO RFLX [id number] 00:00:00* Test Item Value Reference Range Interpretation Comme nts HIV 1/2 4TH GEN, RFLX CONF ( test code = 3514) NON-REACTIVE HIV AB/AG COMBO RFLX [id number] 00:00:00* Test Item Value Reference Range Interpretation Comme nts HIV 1/2 4TH GEN, RFLX CONF ( test code = 3514) NON-REACTIVE ACUTE HEPATITIS [id number] 00:00:00* Test Item Value Reference Range Interpretation Comme nts HEPATITIS A IgM (test code = 45643) NON-REACTIVE HEPATITIS B CORE IgM (test c ode = 4644) NON-REACTIVE HEPATITIS B SURF AG (test co de = 2739) NON-REACTIVE HEPATITIS C ANTIBODY (test c ode = 4675) NON-REACTIVE INTERPRETATION HEPATITIS A: (test code = 2552) (NOTE) INTERPRETATION HEPATITIS B: (test code = 34297) (NOTE) INTERPRETATION HEPATITIS C: (test code = 03711) (NOTE) ACUTE HEPATITIS [id number] 00:00:00* Test Item Value Reference Range Interpretation Comme nts HEPATITIS A IgM (test code = 68374) NON-REACTIVE HEPATITIS B CORE IgM (test c ode = 4644) NON-REACTIVE HEPATITIS B SURF AG (test co de = 2739) NON-REACTIVE HEPATITIS C ANTIBODY (test c ode = 4675) NON-REACTIVE INTERPRETATION HEPATITIS A: (test code = 2552) (NOTE) INTERPRETATION HEPATITIS B: (test code = 02156) (NOTE) INTERPRETATION HEPATITIS C: (test code = 89072) (NOTE) [id number] 00:00:00* Test Item Value Reference Range Interpretation Comme nts RPR RESULT (test code = 3501) NON-REACTIVE RPR TITER (test code = 3500) NOT INDIC. TITER [id number] 00:00:00* Test Item Value Reference Range Interpretation Comme nts RPR RESULT (test code = 3501) NON-REACTIVE RPR TITER (test code = 3500) NOT INDIC. TITER [id number] 00:00:00* Test Item Value Reference Range Interpretation Comme nts RPR RESULT (test code = 3501) NON-REACTIVE RPR TITER (test code = 3500) NOT INDIC. TITER CBC W/AUTO [id number] 00:00:00* Test Item Value Reference Range Interpretation [...] ABS NUCLEATED RBCS (test cod e = 50617) 0.00 K/UL CBC W/AUTO [id number] 00:00:00* Test Item Value Reference Range Interpretation [...] ABS NUCLEATED RBCS (test cod e = 87304) 0.00 K/UL CBC W/AUTO [id number] 00:00:00* Test Item Value Reference Range Interpretation [...] ABS NUCLEATED RBCS (test cod e = 78162) 0.00 K/UL HEMOGLOBIN [id number] 00:00:00* Test Item Value Reference Range Interpretation Comme nts HEMOGLOBIN A1c (test code = 75178) 5.2 % HEMOGLOBIN [id number] 00:00:00* Test Item Value Reference Range Interpretation Comme nts HEMOGLOBIN A1c (test code = 79778) 5.2 % HEMOGLOBIN [id number] 00:00:00* Test Item Value Reference Range Interpretation Comme nts HEMOGLOBIN A1c (test code = 15823) 5.2 % HIV AB/AG COMBO RFLX [id number] 00:00:00* Test Item Value Reference Range Interpretation Comme nts HIV 1/2 4TH GEN, RFLX CONF ( test code = 3514) NON-REACTIVE HIV AB/AG COMBO RFLX [id number] 00:00:00* Test Item Value Reference Range Interpretation Comme nts HIV 1/2 4TH GEN, RFLX CONF ( test code = 3514) NON-REACTIVE ACUTE HEPATITIS [id number] 00:00:00* Test Item Value Reference Range Interpretation Comme nts HEPATITIS A IgM (test code = 70947) NON-REACTIVE HEPATITIS B CORE IgM (test c ode = 4644) NON-REACTIVE HEPATITIS B SURF AG (test co de = 2739) NON-REACTIVE HEPATITIS C ANTIBODY (test c ode = 4675) NON-REACTIVE INTERPRETATION HEPATITIS A: (test code = 2552) (NOTE) INTERPRETATION HEPATITIS B: (test code = 30804) (NOTE) INTERPRETATION HEPATITIS C: (test code = 59021) (NOTE) ACUTE HEPATITIS [id number] 00:00:00* Test Item Value Reference Range Interpretation Comme nts HEPATITIS A IgM (test code = 33790) NON-REACTIVE HEPATITIS B CORE IgM (test c ode = 4644) NON-REACTIVE HEPATITIS B SURF AG (test co de = 2739) NON-REACTIVE HEPATITIS C ANTIBODY (test c ode = 4675) NON-REACTIVE INTERPRETATION HEPATITIS A: (test code = 2552) (NOTE) INTERPRETATION HEPATITIS B: (test code = 90253) (NOTE) INTERPRETATION HEPATITIS C: (test code = 65330) (NOTE) [id number] 00:00:00* Test Item Value Reference Range Interpretation Comme nts RPR RESULT (test code = 3501) NON-REACTIVE RPR TITER (test code = 3500) NOT INDIC. TITER [id number] 00:00:00* Test Item Value Reference Range Interpretation Comme nts RPR RESULT (test code = 3501) NON-REACTIVE RPR TITER (test code = 3500) NOT INDIC. TITER [id number] 00:00:00* Test Item Value Reference Range Interpretation Comme nts RPR RESULT (test code = 3501) NON-REACTIVE RPR TITER (test code = 3500) NOT INDIC. TITER CT/NG, NAAT, [id number] 18:09:18* Test Item Value Reference Range Interpretation Comme nts GONORRHEA, NAAT (test code = 12586) NEGATIVE NEGATIVE IMPORTANT NO BEAR: SEE ANNOUNCEMENT AT [email or web address] [email or web address] Note: Assay methodology is nucleic acid amplification by oil processing technician mediated amplification (TMA) utilizing the AptStackEngine Combo 2 Assay. CHLAMYDIA, NAAT (test code = 86213) NEGATIVE NEGATIVE IMPORTANT NO BEAR: SEE ANNOUNCEMENT AT [email or web address] Note: Assay methodology is nucleic acid amplification by oil processing technician mediated amplification (TMA) utilizing the AptStackEngine Combo 2 Assay. VAGINAL PATHOGENS DNA [id number] 15:05:08* Test Item Value Reference Range Interpretation Comme nts SUZE SPECIES (test code = 91182) NEGATIVE NEGATIVE G. VAGINALIS (test code = 37219) POSITIVE NEGATIVE A T. VAGINALIS (test code = 41553) NEGATIVE NEGATIVE [id number] 05:20:25* Test Item Value Reference Range Interpretation Comme nts RPR RESULT (test code = 3501) NON-REACTIVE NON-REACTIVE RPR TITER (test code = 3500) NOT INDIC. TITER NOT INDIC. UNLESS OTHERWISE INDICATED, ALL TESTING PERFORMED [facility] [address] [place] [address] [employer]IVER: JONNY FREY M.D. CLIA NUMBER [id number] [facility] [place]. [id number] HIV 1/2 4TH GEN, RFLX [id number] 04:05:17* Test Item Value Reference Range Interpretation Comme nts HIV 1/2 4TH GEN, RFLX CONF ( test code = 3514) NON-REACTIVE NON-REACTIVE HEPATITIS PANEL, [id number] 04:05:17* Test Item Value Reference Range Interpretation Comme nts HEPATITIS A IgM (test code = 76444) NON-REACTIVE NON-REACTIVE HEPATITIS B CORE IgM (test code = 4644) NON-REACTIVE NON-REACTIVE HEPATITIS B SURF AG (test code = 2739) NON-REACTIVE NON-REACTIVE HEPATITIS C ANTIBODY (test code = 4675) NON-REACTIVE NON-REACTIVE INTERPRETATION HEPATITIS A: (test code = 2552) (NOTE) Hepatitis A serology shows no evidence of acute hepatitis A. INTERPRETATION HEPATITIS B: (test code = 93069) (NOTE) Hepatitis B serology shows no evidence of acute hepatitis B andno indication of exposure to hepatitis B virus in the previous karla eight months. INTERPRETATION HEPATITIS C: (test code = 70201) (NOTE) Hepatitis C serology shows no evidence of exposure to hepatitisC virus at this time. It can take up to 12 months after exposure tothe hepatitis C virus for antibodies to become detectable in the blood in certain patients. HIV AB/AG COMBO RFLX [id number] 00:00:00* Test Item Value Reference Range Interpretation Comme nts HIV 1/2 4TH GEN, RFLX CONF ( test code = 3514) NON-REACTIVE HIV AB/AG COMBO RFLX [id number] 00:00:00* Test Item Value Reference Range Interpretation Comme nts HIV 1/2 4TH GEN, RFLX CONF ( test code = 3514) NON-REACTIVE ACUTE HEPATITIS [id number] 00:00:00* Test Item Value Reference Range Interpretation Comme nts HEPATITIS A IgM (test code = 58998) NON-REACTIVE HEPATITIS B CORE IgM (test c ode = 4644) NON-REACTIVE HEPATITIS B SURF AG (test co de = 2739) NON-REACTIVE HEPATITIS C ANTIBODY (test c ode = 4675) NON-REACTIVE INTERPRETATION HEPATITIS A: (test code = 2552) (NOTE) INTERPRETATION HEPATITIS B: (test code = 57754) (NOTE) INTERPRETATION HEPATITIS C: (test code = 94521) (NOTE) ACUTE HEPATITIS [id number] 00:00:00* Test Item Value Reference Range Interpretation Comme nts HEPATITIS A IgM (test code = 47184) NON-REACTIVE HEPATITIS B CORE IgM (test c ode = 4644) NON-REACTIVE HEPATITIS B SURF AG (test co de = 2739) NON-REACTIVE HEPATITIS C ANTIBODY (test c ode = 4675) NON-REACTIVE INTERPRETATION HEPATITIS A: (test code = 2552) (NOTE) INTERPRETATION HEPATITIS B: (test code = 77428) (NOTE) INTERPRETATION HEPATITIS C: (test code = 02780) (NOTE) GC AND CHLAMYDIA, AMPLIFIED, [id number] 00:00:00* Test Item Value Reference Range Interpretation Comme nts GONORRHEA, NAAT (test code = 55025) NEGATIVE CHLAMYDIA, NAAT (test code = 67627) NEGATIVE GC AND CHLAMYDIA, AMPLIFIED, [id number] 00:00:00* Test Item Value Reference Range Interpretation Comme nts GONORRHEA, NAAT (test code = 14460) NEGATIVE CHLAMYDIA, NAAT (test code = 32201) NEGATIVE [id number] 00:00:00* Test Item Value Reference Range Interpretation Comme nts RPR RESULT (test code = 3501) NON-REACTIVE RPR TITER (test code = 3500) NOT INDIC. TITER [id number] 00:00:00* Test Item Value Reference Range Interpretation Comme nts RPR RESULT (test code = 3501) NON-REACTIVE RPR TITER (test code = 3500) NOT INDIC. TITER [id number] 00:00:00* Test Item Value Reference Range Interpretation Comme nts RPR RESULT (test code = 3501) NON-REACTIVE RPR TITER (test code = 3500) NOT INDIC. TITER VAGINAL PATHOGENS DNA [id number] 00:00:00* Test Item Value Reference Range Interpretation Comme nts SUZE SPECIES (test code = 94598) NEGATIVE G. VAGINALIS (test code = 69537) POSITIVE T. VAGINALIS (test code = 01238) NEGATIVE VAGINAL PATHOGENS DNA [id number] 00:00:00* Test Item Value Reference Range Interpretation Comme nts SUZE SPECIES (test code = 21062) NEGATIVE G. VAGINALIS (test code = 31224) POSITIVE T. VAGINALIS (test code = 83685) NEGATIVE HIV AB/AG COMBO RFLX [id number] 00:00:00* Test Item Value Reference Range Interpretation Comme nts HIV 1/2 4TH GEN, RFLX CONF ( test code = 3514) NON-REACTIVE HIV AB/AG COMBO RFLX [id number] 00:00:00* Test Item Value Reference Range Interpretation Comme nts HIV 1/2 4TH GEN, RFLX CONF ( test code = 3514) NON-REACTIVE ACUTE HEPATITIS [id number] 00:00:00* Test Item Value Reference Range Interpretation Comme nts HEPATITIS A IgM (test code = 80470) NON-REACTIVE HEPATITIS B CORE IgM (test c ode = 4644) NON-REACTIVE HEPATITIS B SURF AG (test co de = 2739) NON-REACTIVE HEPATITIS C ANTIBODY (test c ode = 4675) NON-REACTIVE INTERPRETATION HEPATITIS A: (test code = 2552) (NOTE) INTERPRETATION HEPATITIS B: (test code = 58594) (NOTE) INTERPRETATION HEPATITIS C: (test code = 84879) (NOTE) ACUTE HEPATITIS [id number] 00:00:00* Test Item Value Reference Range Interpretation Comme nts HEPATITIS A IgM (test code = 49962) NON-REACTIVE HEPATITIS B CORE IgM (test c ode = 4644) NON-REACTIVE HEPATITIS B SURF AG (test co de = 2739) NON-REACTIVE HEPATITIS C ANTIBODY (test c ode = 4675) NON-REACTIVE INTERPRETATION HEPATITIS A: (test code = 2552) (NOTE) INTERPRETATION HEPATITIS B: (test code = 83696) (NOTE) INTERPRETATION HEPATITIS C: (test code = 69572) (NOTE) GC AND CHLAMYDIA, AMPLIFIED, [id number] 00:00:00* Test Item Value Reference Range Interpretation Comme nts GONORRHEA, NAAT (test code = 55828) NEGATIVE CHLAMYDIA, NAAT (test code = 26052) NEGATIVE GC AND CHLAMYDIA, AMPLIFIED, [id number] 00:00:00* Test Item Value Reference Range Interpretation Comme nts GONORRHEA, NAAT (test code = 98459) NEGATIVE CHLAMYDIA, NAAT (test code = 00335) NEGATIVE [id number] 00:00:00* Test Item Value Reference Range Interpretation Comme nts RPR RESULT (test code = 3501) NON-REACTIVE RPR TITER (test code = 3500) NOT INDIC. TITER [id number] 00:00:00* Test Item Value Reference Range Interpretation Comme nts RPR RESULT (test code = 3501) NON-REACTIVE RPR TITER (test code = 3500) NOT INDIC. TITER [id number] 00:00:00* Test Item Value Reference Range Interpretation Comme nts RPR RESULT (test code = 3501) NON-REACTIVE RPR TITER (test code = 3500) NOT INDIC. TITER VAGINAL PATHOGENS DNA [id number] 00:00:00* Test Item Value Reference Range Interpretation Comme nts SUZE SPECIES (test code = ) NEGATIVE G. VAGINALIS (test code = 16648) POSITIVE T. VAGINALIS (test code = 52632) NEGATIVE VAGINAL PATHOGENS DNA [id number] 00:00:00* Test Item Value Reference Range Interpretation Comme nts SUZE SPECIES (test code = ) NEGATIVE G. VAGINALIS (test code = 27225) POSITIVE T. VAGINALIS (test code = 04882) NEGATIVE HIV AB/AG COMBO RFLX [id number] 00:00:00* Test Item Value Reference Range Interpretation Comme nts HIV 1/2 4TH GEN, RFLX CONF ( test code = 3514) NON-REACTIVE HIV AB/AG COMBO RFLX [id number] 00:00:00* Test Item Value Reference Range Interpretation Comme nts HIV 1/2 4TH GEN, RFLX CONF ( test code = 3514) NON-REACTIVE ACUTE HEPATITIS [id number] 00:00:00* Test Item Value Reference Range Interpretation Comme nts HEPATITIS A IgM (test code = 47112) NON-REACTIVE HEPATITIS B CORE IgM (test c ode = 4644) NON-REACTIVE HEPATITIS B SURF AG (test co de = 2739) NON-REACTIVE HEPATITIS C ANTIBODY (test c ode = 4675) NON-REACTIVE INTERPRETATION HEPATITIS A: (test code = 2552) (NOTE) INTERPRETATION HEPATITIS B: (test code = 90596) (NOTE) INTERPRETATION HEPATITIS C: (test code = 87422) (NOTE) ACUTE HEPATITIS [id number] 00:00:00* Test Item Value Reference Range Interpretation Comme nts HEPATITIS A IgM (test code = 62171) NON-REACTIVE HEPATITIS B CORE IgM (test c ode = 4644) NON-REACTIVE HEPATITIS B SURF AG (test co de = 2739) NON-REACTIVE HEPATITIS C ANTIBODY (test c ode = 4675) NON-REACTIVE INTERPRETATION HEPATITIS A: (test code = 2552) (NOTE) INTERPRETATION HEPATITIS B: (test code = 40434) (NOTE) INTERPRETATION HEPATITIS C: (test code = 90488) (NOTE) GC AND CHLAMYDIA, AMPLIFIED, [id number] 00:00:00* Test Item Value Reference Range Interpretation Comme nts GONORRHEA, NAAT (test code = 28018) NEGATIVE CHLAMYDIA, NAAT (test code = 51381) NEGATIVE GC AND CHLAMYDIA, AMPLIFIED, [id number] 00:00:00* Test Item Value Reference Range Interpretation Comme nts GONORRHEA, NAAT (test code = 69784) NEGATIVE CHLAMYDIA, NAAT (test code = 31588) NEGATIVE [id number] 00:00:00* Test Item Value Reference Range Interpretation Comme nts RPR RESULT (test code = 3501) NON-REACTIVE RPR TITER (test code = 3500) NOT INDIC. TITER [id number] 00:00:00* Test Item Value Reference Range Interpretation Comme nts RPR RESULT (test code = 3501) NON-REACTIVE RPR TITER (test code = 3500) NOT INDIC. TITER [id number] 00:00:00* Test Item Value Reference Range Interpretation Comme nts RPR RESULT (test code = 3501) NON-REACTIVE RPR TITER (test code = 3500) NOT INDIC. TITER VAGINAL PATHOGENS DNA [id number] 00:00:00* Test Item Value Reference Range Interpretation Comme nts SUZE SPECIES (test code = 41238) NEGATIVE G. VAGINALIS (test code = 16672) POSITIVE T. VAGINALIS (test code = 37874) NEGATIVE VAGINAL PATHOGENS DNA [id number] 00:00:00* Test Item Value Reference Range Interpretation Comme nts SUZE SPECIES (test code = 40865) NEGATIVE G. VAGINALIS (test code = 60074) POSITIVE T. VAGINALIS (test code = 56024) NEGATIVE SARS-CoV-2 (COVID-19), RT-PCR/[id number] 15:37:51* Test Item Value Reference Range Interpretation Comments SARS-CoV-2 INTERPRETATION (test code = 02154) NEGATIVE SEE NOTE SARS-CoV-2 R NA NOT [...] prevalence is high. SOURCE (test code = 82771) NASOPHARYNGEAL Note: Methodolog y is Allyssa Miguel Angel Real-Time RT-PCR. The expected result or reference range is NEGATIVE (Not Detected). For more information regarding COVID-19 testing to include clinicalinformation, methodology detail, intended use, FDA authorization andrecommended fact sheets for patients or healthcare providers, see PPDai Announcement: SARS-CoV-2 (COVID-19) by NAAT at URL below (note,fact sheets are provided by method given in report:[email or web address] Alternatively, see downloadable PDF fact sheet at:[email or web address] UNLESS OTHERWISE INDICATED, ALL TESTING PERFORMED [facility], [facility]. [address] [place] [address] [employer]IVER: JONNY FREY M.D. CLIA NUMBER [id number] [facility] [place]. [id number] SARS-CoV-2 (COVID-19) by RT-PCR (HIGH RISK)2021-06-04 00:00:00* Test Item Value Reference Range Interpretation Comme nts SARS-CoV-2 INTERPRETATION (test code = 19326) NEGATIVE SOURCE (test code = 95464) NASOPHARYNGEAL SARS-CoV-2 (COVID-19) by RT-PCR (HIGH RISK)2021-06-04 00:00:00* Test Item Value Reference Range Interpretation Comme nts SARS-CoV-2 INTERPRETATION (test code = 05956) NEGATIVE SOURCE (test code = 07149) NASOPHARYNGEAL SARS-CoV-2 (COVID-19) by RT-PCR (HIGH RISK)2021-06-04 00:00:00* Test Item Value Reference Range Interpretation Comme nts SARS-CoV-2 INTERPRETATION (test code = 73092) NEGATIVE SOURCE (test code = 26094) NASOPHARYNGEAL SARS-CoV-2 (COVID-19) by RT-PCR (HIGH RISK)2021-06-04 00:00:00* Test Item Value Reference Range Interpretation Comme nts SARS-CoV-2 INTERPRETATION (test code = 89767) NEGATIVE SOURCE (test code = 14481) NASOPHARYNGEAL SARS-CoV-2 (COVID-19) by RT-PCR (HIGH RISK)2021-06-04 00:00:00* Test Item Value Reference Range Interpretation Comme nts SARS-CoV-2 INTERPRETATION (test code = 89893) NEGATIVE SOURCE (test code = 56533) NASOPHARYNGEAL SARS-CoV-2 (COVID-19) by RT-PCR (HIGH RISK)2021-06-04 00:00:00* Test Item Value Reference Range Interpretation Comme nts SARS-CoV-2 INTERPRETATION (test code = 11293) NEGATIVE SOURCE (test code = 33436) NASOPHARYNGEAL CT/NG, NAAT, [id number] 11:27:50* Test Item Value Reference Range Interpretation Comme nts GONORRHEA, NAAT (test code = 73708) POSITIVE, SEE BELOW NEGATIVE A IMPORTANT NOTICE : SEE ANNOUNCEMENT AT [email or web address] Note: Assay methodology is nucleic acid amplification by oil processing technician mediated amplification (TMA) utilizing the Aptima Combo 2 Assay. IMPORTANT NOTICE: SEE ANNOUNCEMENT AT [email or web address] Note: Assay methodology is nucleic acid amplification by oil processing technician mediated amplification (TMA) utilizing the Aptima Combo 2 Assay. Positive results repeated and confirmed. CHLAMYDIA, NAAT (test code = 58015) POSITIVE, SEE BELOW NEGATIVE A IMPORTANT NOTICE : SEE ANNOUNCEMENT AT [email or web address] Note: Assay methodology is nucleic acid amplification by oil processing technician mediated amplification (TMA) utilizing the Aptima Combo 2 Assay. IMPORTANT NOTICE: SEE ANNOUNCEMENT AT [email or web address] Note: Assay methodology is nucleic acid amplification by oil processing technician mediated amplification (TMA) utilizing the Aptima Combo 2 Assay. Positive results repeated and confirmed. GC AND CHLAMYDIA, AMPLIFIED, [id number] 00:00:00* Test Item Value Reference Range Interpretation Comme nts GONORRHEA, NAAT (test code = 51569) POSITIVE, SEE BELOW CHLAMYDIA, NAAT (test code = 64406) POSITIVE, SEE BELOW GC AND CHLAMYDIA, AMPLIFIED, [id number] 00:00:00* Test Item Value Reference Range Interpretation Comme nts GONORRHEA, NAAT (test code = 36454) POSITIVE, SEE BELOW CHLAMYDIA, NAAT (test code = 96305) POSITIVE, SEE BELOW GC AND CHLAMYDIA, AMPLIFIED, [id number] 00:00:00* Test Item Value Reference Range Interpretation Comme nts GONORRHEA, NAAT (test code = 97693) POSITIVE, SEE BELOW CHLAMYDIA, NAAT (test code = 30850) POSITIVE, SEE BELOW GC AND CHLAMYDIA, AMPLIFIED, [id number] 00:00:00* Test Item Value Reference Range Interpretation Comme nts GONORRHEA, NAAT (test code = 66962) POSITIVE, SEE BELOW CHLAMYDIA, NAAT (test code = 01991) POSITIVE, SEE BELOW GC AND CHLAMYDIA, AMPLIFIED, [id number] 00:00:00* Test Item Value Reference Range Interpretation Comme nts GONORRHEA, NAAT (test code = 58774) POSITIVE, SEE BELOW CHLAMYDIA, NAAT (test code = 88413) POSITIVE, SEE BELOW GC AND CHLAMYDIA, AMPLIFIED, [id number] 00:00:00* Test Item Value Reference Range Interpretation Comme nts GONORRHEA, NAAT (test code = 64650) POSITIVE, SEE BELOW CHLAMYDIA, NAAT (test code = 38078) POSITIVE, SEE BELOW HIV 1/2 4TH GEN, RFLX [id number] 05:00:55* Test Item Value Reference Range Interpretation Comme nts HIV 1/2 4TH GEN, RFLX CONF ( test code = 3514) NON-REACTIVE NON-REACTIVE HEPATITIS PANEL, [id number] 05:00:55* Test Item Value Reference Range Interpretation Comme nts HEPATITIS A IgM (test code = 08265) NON-REACTIVE NON-REACTIVE HEPATITIS B CORE IgM (test code = 4644) NON-REACTIVE NON-REACTIVE HEPATITIS B SURF AG (test code = 2739) NON-REACTIVE NON-REACTIVE HEPATITIS C ANTIBODY (test code = 4675) NON-REACTIVE NON-REACTIVE INTERPRETATION HEPATITIS A: (test code = 2552) (NOTE) Hepatitis A sero logy shows no evidence of acute hepatitis A. INTERPRETATION HEPATITIS B: (test code = 50226) (NOTE) Hepatitis B sero logy shows no evidence of acute hepatitis B andno indication of exposure to hepatitis B virus in the previous karla eight months. INTERPRETATION HEPATITIS C: (test code = 39102) (NOTE) Hepatitis C sero logy shows no evidence of exposure to hepatitisC virus at this time. It can take up to 12 months after exposure tothe hepatitis C virus for antibodies to become detectable in the blood in certain patients. UNLESS OTHERWISE INDICATED, ALL TESTING PERFORMED [facility] PATHOLOGY ANTs Software, [facility]. [address] [place] [address] GAS TRUCK DRIVER: JONNY FREY M.D. IA NUMBER [id number] [facility] [place]. [id number] 04:58:29* Test Item Value Reference Range Interpretation Comme nts RPR RESULT (test code = 3501) NON-REACTIVE NON-REACTIVE RPR TITER (test code = 3500) NOT INDIC. TITER NOT INDIC. HIV AB/AG COMBO RFLX [id number] 00:00:00* Test Item Value Reference Range Interpretation Comme nts HIV 1/2 4TH GEN, RFLX CONF ( test code = 3514) NON-REACTIVE HIV AB/AG COMBO RFLX [id number] 00:00:00* Test Item Value Reference Range Interpretation Comme nts HIV 1/2 4TH GEN, RFLX CONF ( test code = 3514) NON-REACTIVE [id number] 00:00:00* Test Item Value Reference Range Interpretation Comme nts RPR RESULT (test code = 3501) NON-REACTIVE RPR TITER (test code = 3500) NOT INDIC. TITER [id number] 00:00:00* Test Item Value Reference Range Interpretation Comme nts RPR RESULT (test code = 3501) NON-REACTIVE RPR TITER (test code = 3500) NOT INDIC. TITER [id number] 00:00:00* Test Item Value Reference Range Interpretation Comme nts RPR RESULT (test code = 3501) NON-REACTIVE RPR TITER (test code = 3500) NOT INDIC. TITER ACUTE HEPATITIS [id number] 00:00:00* Test Item Value Reference Range Interpretation Comme nts HEPATITIS A IgM (test code = 63188) NON-REACTIVE HEPATITIS B CORE IgM (test c ode = 4644) NON-REACTIVE HEPATITIS B SURF AG (test co de = 2739) NON-REACTIVE HEPATITIS C ANTIBODY (test c ode = 4675) NON-REACTIVE INTERPRETATION HEPATITIS A: (test code = 2552) (NOTE) INTERPRETATION HEPATITIS B: (test code = 91374) (NOTE) INTERPRETATION HEPATITIS C: (test code = 29376) (NOTE) ACUTE HEPATITIS [id number] 00:00:00* Test Item Value Reference Range Interpretation Comme nts HEPATITIS A IgM (test code = 35743) NON-REACTIVE HEPATITIS B CORE IgM (test c ode = 4644) NON-REACTIVE HEPATITIS B SURF AG (test co de = 2739) NON-REACTIVE HEPATITIS C ANTIBODY (test c ode = 4675) NON-REACTIVE INTERPRETATION HEPATITIS A: (test code = 2552) (NOTE) INTERPRETATION HEPATITIS B: (test code = 36370) (NOTE) INTERPRETATION HEPATITIS C: (test code = 92337) (NOTE) HIV AB/AG COMBO RFLX [id number] 00:00:00* Test Item Value Reference Range Interpretation Comme nts HIV 1/2 4TH GEN, RFLX CONF ( test code = 3514) NON-REACTIVE HIV AB/AG COMBO RFLX [id number] 00:00:00* Test Item Value Reference Range Interpretation Comme nts HIV 1/2 4TH GEN, RFLX CONF ( test code = 3514) NON-REACTIVE [id number] 00:00:00* Test Item Value Reference Range Interpretation Comme nts RPR RESULT (test code = 3501) NON-REACTIVE RPR TITER (test code = 3500) NOT INDIC. TITER [id number] 00:00:00* Test Item Value Reference Range Interpretation Comme nts RPR RESULT (test code = 3501) NON-REACTIVE RPR TITER (test code = 3500) NOT INDIC. TITER [id number] 00:00:00* Test Item Value Reference Range Interpretation Comme nts RPR RESULT (test code = 3501) NON-REACTIVE RPR TITER (test code = 3500) NOT INDIC. TITER ACUTE HEPATITIS [id number] 00:00:00* Test Item Value Reference Range Interpretation Comme nts HEPATITIS A IgM (test code = 19884) NON-REACTIVE HEPATITIS B CORE IgM (test c ode = 4644) NON-REACTIVE HEPATITIS B SURF AG (test co de = 2739) NON-REACTIVE HEPATITIS C ANTIBODY (test c ode = 4675) NON-REACTIVE INTERPRETATION HEPATITIS A: (test code = 2552) (NOTE) INTERPRETATION HEPATITIS B: (test code = 76523) (NOTE) INTERPRETATION HEPATITIS C: (test code = 67410) (NOTE) ACUTE HEPATITIS [id number] 00:00:00* Test Item Value Reference Range Interpretation Comme nts HEPATITIS A IgM (test code = 33165) NON-REACTIVE HEPATITIS B CORE IgM (test c ode = 4644) NON-REACTIVE HEPATITIS B SURF AG (test co de = 2739) NON-REACTIVE HEPATITIS C ANTIBODY (test c ode = 4675) NON-REACTIVE INTERPRETATION HEPATITIS A: (test code = 2552) (NOTE) INTERPRETATION HEPATITIS B: (test code = 42422) (NOTE) INTERPRETATION HEPATITIS C: (test code = 33897) (NOTE) HIV AB/AG COMBO RFLX [id number] 00:00:00* Test Item Value Reference Range Interpretation Comme nts HIV 1/2 4TH GEN, RFLX CONF ( test code = 3514) NON-REACTIVE HIV AB/AG COMBO RFLX [id number] 00:00:00* Test Item Value Reference Range Interpretation Comme nts HIV 1/2 4TH GEN, RFLX CONF ( test code = 3514) NON-REACTIVE [id number] 00:00:00* Test Item Value Reference Range Interpretation Comme nts RPR RESULT (test code = 3501) NON-REACTIVE RPR TITER (test code = 3500) NOT INDIC. TITER [id number] 00:00:00* Test Item Value Reference Range Interpretation Comme nts RPR RESULT (test code = 3501) NON-REACTIVE RPR TITER (test code = 3500) NOT INDIC. TITER [id number] 00:00:00* Test Item Value Reference Range Interpretation Comme nts RPR RESULT (test code = 3501) NON-REACTIVE RPR TITER (test code = 3500) NOT INDIC. TITER ACUTE HEPATITIS [id number] 00:00:00* Test Item Value Reference Range Interpretation Comme nts HEPATITIS A IgM (test code = 88398) NON-REACTIVE HEPATITIS B CORE IgM (test c ode = 4644) NON-REACTIVE HEPATITIS B SURF AG (test co de = 2739) NON-REACTIVE HEPATITIS C ANTIBODY (test c ode = 4675) NON-REACTIVE INTERPRETATION HEPATITIS A: (test code = 2552) (NOTE) INTERPRETATION HEPATITIS B: (test code = 97536) (NOTE) INTERPRETATION HEPATITIS C: (test code = 98794) (NOTE) ACUTE HEPATITIS [id number] 00:00:00* Test Item Value Reference Range Interpretation Comme nts HEPATITIS A IgM (test code = 54124) NON-REACTIVE HEPATITIS B CORE IgM (test c ode = 4644) NON-REACTIVE HEPATITIS B SURF AG (test co de = 2739) NON-REACTIVE HEPATITIS C ANTIBODY (test c ode = 4675) NON-REACTIVE INTERPRETATION HEPATITIS A: (test code = 2552) (NOTE) INTERPRETATION HEPATITIS B: (test code = 29843) (NOTE) INTERPRETATION HEPATITIS C: (test code = 70906) (NOTE) RPR [ADDED]2021-02-18 00:00:00* Test Item Value [...] 3500) NOT INDIC. TITER VAGINAL PATHOGENS DNA [id number] 00:00:00* Test Item Value Reference Range Interpretation Comme nts SUZE SPECIES (test code = 87240) NEGATIVE G. VAGINALIS (test code = 51146) POSITIVE T. VAGINALIS (test code = 93637) NEGATIVE VAGINAL PATHOGENS DNA [id number] 00:00:00* Test Item Value Reference Range Interpretation Comme nts SUZE SPECIES (test code = 03797) NEGATIVE G. VAGINALIS (test code = 77518) POSITIVE T. VAGINALIS (test code = 89645) NEGATIVE HIV 1/2 4TH GEN, RFLX CONF [ADDED]2021-02-17 00:00:00* Test Item Value Reference Range Interpretation Comme nts HIV 1/2 4TH GEN, RFLX CONF ( test code = 3514) NON-REACTIVE HIV 1/2 4TH GEN, RFLX CONF [ADDED]2021-02-17 00:00:00* Test Item Value Reference Range Interpretation Comme nts HIV 1/2 4TH GEN, RFLX CONF ( test code = 3514) NON-REACTIVE VAGINAL PATHOGENS DNA [id number] 00:00:00* Test Item Value Reference Range Interpretation Comme nts SUZE SPECIES (test code = 24667) NEGATIVE G. VAGINALIS (test code = 28100) POSITIVE T. VAGINALIS (test code = 44419) NEGATIVE VAGINAL PATHOGENS DNA [id number] 00:00:00* Test Item Value Reference Range Interpretation Comme nts SUZE SPECIES (test code = 63000) NEGATIVE G. VAGINALIS (test code = 19139) POSITIVE T. VAGINALIS (test code = 15284) NEGATIVE HIV 1/2 4TH GEN, RFLX CONF [ADDED]2021-02-17 00:00:00* Test Item Value Reference Range Interpretation Comme nts HIV 1/2 4TH GEN, RFLX CONF ( test code = 3514) NON-REACTIVE HIV 1/2 4TH GEN, RFLX CONF [ADDED]2021-02-17 00:00:00* Test Item Value Reference Range Interpretation Comme nts HIV 1/2 4TH GEN, RFLX CONF ( test code = 3514) NON-REACTIVE VAGINAL PATHOGENS DNA [id number] 00:00:00* Test Item Value Reference Range Interpretation Comme nts SUZE SPECIES (test code = ) NEGATIVE G. VAGINALIS (test code = 63945) POSITIVE T. VAGINALIS (test code = 66852) NEGATIVE VAGINAL PATHOGENS DNA [id number] 00:00:00* Test Item Value Reference Range Interpretation Comme nts SUZE SPECIES (test code = ) NEGATIVE G. VAGINALIS (test code = 87628) POSITIVE T. VAGINALIS (test code = 48831) NEGATIVE HIV 1/2 4TH GEN, RFLX CONF [...] Comme nts GONORRHEA, NAAT (test code = 68505) NEGATIVE CHLAMYDIA, NAAT (test code = 62811) NEGATIVE CT/NG, NAAT, URINE [ADDED]2021-02-16 00:00:00* Test Item Value Reference Range Interpretation Comme nts GONORRHEA, NAAT (test code = 54207) NEGATIVE CHLAMYDIA, NAAT (test code = 78513) NEGATIVE CT/NG, NAAT, URINE [ADDED]2021-02-16 00:00:00* Test Item Value Reference Range Interpretation Comme nts GONORRHEA, NAAT (test code = 68965) NEGATIVE CHLAMYDIA, NAAT (test code = 25724) NEGATIVE CT/NG, NAAT, URINE [ADDED]2021-02-16 00:00:00* Test Item Value Reference Range Interpretation Comme nts GONORRHEA, NAAT (test code = 63839) NEGATIVE CHLAMYDIA, NAAT (test code = 36343) NEGATIVE CT/NG, NAAT, URINE [ADDED]2021-02-16 00:00:00* Test Item Value Reference Range Interpretation Comme nts GONORRHEA, NAAT (test code = 27260) NEGATIVE CHLAMYDIA, NAAT (test code = 64298) NEGATIVE CT/NG, NAAT, URINE [ADDED]2021-02-16 00:00:00* Test Item Value Reference Range Interpretation Comme nts GONORRHEA, NAAT (test code = 31888) NEGATIVE CHLAMYDIA, NAAT (test code = 54209) NEGATIVE GC AND CHLAMYDIA, AMPLIFIED, [id number] 00:00:00* Test Item Value Reference Range Interpretation Comme nts GONORRHEA, NAAT (test code = 16397) TEST NOT PERFORMED CHLAMYDIA, NAAT (test code = 54986) TEST NOT PERFORMED GC AND CHLAMYDIA, AMPLIFIED, [id number] 00:00:00* Test Item Value Reference Range Interpretation Comme nts GONORRHEA, NAAT (test code = 58481) TEST NOT PERFORMED CHLAMYDIA, NAAT (test code = 46669) TEST NOT PERFORMED GC AND CHLAMYDIA, AMPLIFIED, [id number] 00:00:00* Test Item Value Reference Range Interpretation Comme nts GONORRHEA, NAAT (test code = 70121) TEST NOT PERFORMED CHLAMYDIA, NAAT (test code = 27130) TEST NOT PERFORMED GC AND CHLAMYDIA, AMPLIFIED, [id number] 00:00:00* Test Item Value Reference Range Interpretation Comme nts GONORRHEA, NAAT (test code = 13695) TEST NOT PERFORMED CHLAMYDIA, NAAT (test code = 54549) TEST NOT PERFORMED GC AND CHLAMYDIA, AMPLIFIED, [id number] 00:00:00* Test Item Value Reference Range Interpretation Comme nts GONORRHEA, NAAT (test code = 65352) TEST NOT PERFORMED CHLAMYDIA, NAAT (test code = 73378) TEST NOT PERFORMED GC AND CHLAMYDIA, AMPLIFIED, [id number] 00:00:00* Test Item Value Reference Range Interpretation Comme nts GONORRHEA, NAAT (test code = 48470) TEST NOT PERFORMED CHLAMYDIA, NAAT (test code = 45658) TEST NOT PERFORMED CHLAMYDIA/N. GONORRHOEAE RNA, TMA (REFL)2021-01-22 00:00:00* Test Item Value Reference Range Interpretation Comme nts CHLAMYDIA TRACHOMATIS RNA, T MA, UROGENITAL (test code = 30746-6) NOT DETECTED NEISSERIA GONORRHOEAE RNA, T MA, UROGENITAL (test code = 97642-4) NOT DETECTED COMMENT (test code = ) CHLAMYDIA/N. GONORRHOEAE RNA, TMA (REFL)2021-01-22 00:00:00* Test Item Value Reference Range Interpretation Comme nts CHLAMYDIA TRACHOMATIS RNA, T MA, UROGENITAL (test code = 35682-7) NOT DETECTED NEISSERIA GONORRHOEAE RNA, T MA, UROGENITAL (test code = 44906-6) NOT DETECTED COMMENT (test code = ) CHLAMYDIA/N. GONORRHOEAE RNA, TMA (REFL)2021-01-22 00:00:00* Test Item Value Reference Range Interpretation Comme nts CHLAMYDIA TRACHOMATIS RNA, T MA, UROGENITAL (test code = 70621-1) NOT DETECTED NEISSERIA GONORRHOEAE RNA, T MA, UROGENITAL (test code = 79085-9) NOT DETECTED COMMENT (test code = ) C. TRACHOMATIS/N. GONORRHOEAE, RECTAL/PHARYNGEAL [ADDED]2021-01-13 00:00:00* Test Item Value Reference Range Interpretation Comme nts SOURCE (test code = 69325) THROAT C. TRACHOMATIS (test code = 87455) NEGATIVE N. GONORRHOEAE (test code = 16915) NEGATIVE C. TRACHOMATIS/N. GONORRHOEAE, RECTAL/PHARYNGEAL [ADDED]2021-01-13 00:00:00* Test Item Value Reference Range Interpretation Comme nts SOURCE (test code = 08910) THROAT C. TRACHOMATIS (test code = 59058) NEGATIVE N. GONORRHOEAE (test code = 51843) NEGATIVE C. TRACHOMATIS/N. GONORRHOEAE, RECTAL/PHARYNGEAL [ADDED]2021-01-13 00:00:00* Test Item Value Reference Range Interpretation Comme nts SOURCE (test code = 48308) THROAT C. TRACHOMATIS (test code = 03505) NEGATIVE N. GONORRHOEAE (test code = 62024) NEGATIVE CARDIO IQ(R) VITAMIN D, 25-HYDROXY, LC/[id number] 00:00:00* Test Item Value Reference Range Interpretation Comme nts VITAMIN D, 25-OH, TOTAL (vinod t code = 89555-2) 21 ng/mL VITAMIN D, 25-OH, D3 (test c ode = 1989-) 21 ng/mL VITAMIN D, 25-OH, D2 (test c ode = 2235-8) <4.0 ng/mL CHLAMYDIA/N. GONORRHOEAE RNA, [id number] 00:00:00* Test Item Value Reference Range Interpretation Comme nts CHLAMYDIA TRACHOMATIS RNA, T MA, UROGENITAL (test code = 66974-8) DETECTED NEISSERIA GONORRHOEAE RNA, T MA, UROGENITAL (test code = 47797-5) NOT DETECTED COMMENT (test code = ) CARDIO IQ(R) VITAMIN D, 25-HYDROXY, LC/MS/[id number] 00:00:00* Test Item Value Reference Range Interpretation Comme nts VITAMIN D, 25-OH, TOTAL (vinod t code = 82941-1) 21 ng/mL VITAMIN D, 25-OH, D3 (test c ode = 1989-05) 21 ng/mL VITAMIN D, 25-OH, D2 (test c ode = 2235-8) <4.0 ng/mL CHLAMYDIA/N. GONORRHOEAE RNA, [id number] 00:00:00* Test Item Value Reference Range Interpretation Comme nts CHLAMYDIA TRACHOMATIS RNA, T MA, UROGENITAL (test code = 94240-5) DETECTED NEISSERIA GONORRHOEAE RNA, T MA, UROGENITAL (test code = 67960-3) NOT DETECTED COMMENT (test code = ) CARDIO IQ(R) VITAMIN D, 25-HYDROXY, LC/MS/[id number] 00:00:00* Test Item Value Reference Range Interpretation Comme nts VITAMIN D, 25-OH, TOTAL (vinod t code = 64348-5) 21 ng/mL VITAMIN D, 25-OH, D3 (test c ode = 1989-05) 21 ng/mL VITAMIN D, 25-OH, D2 (test c ode = 2235-8) <4.0 ng/mL CHLAMYDIA/N. GONORRHOEAE RNA, [id number] 00:00:00* Test Item Value Reference Range Interpretation Comme nts CHLAMYDIA TRACHOMATIS RNA, T MA, UROGENITAL (test code = 01573-5) DETECTED NEISSERIA GONORRHOEAE RNA, T MA, UROGENITAL (test code = 12923-3) NOT DETECTED COMMENT (test code = ) HIV 1/2 ANTIGEN/ANTIBODY,FOURTH GENERATION [id number] 00:00:00* Test Item Value Reference Range Interpretation Comme nts HIV AG/AB, 4TH GEN (test cod e = 30406-2) NON-REACTIVE CBC (INCLUDES DIFF/PLT)2020-10-06 00:00:00* Test Item [...] cells/uL ABSOLUTE BAND NEUTROPHILS (test code = 89094-7) DNR cells/uL ABSOLUTE METAMYELOCYTES (vinod t code = 58574-8) DNR cells/uL ABSOLUTE MYELOCYTES (test code = 98123-4) DNR cells/uL ABSOLUTE PROMYELOCYTES (test code = 61002-8) DNR cells/uL ABSOLUTE LYMPHOCYTES (test code = 731-0) 1476 cells/uL ABSOLUTE MONOCYTES (test cod e = 742-7) 390 cells/uL ABSOLUTE EOSINOPHILS (test code = 711-2) 132 cells/uL ABSOLUTE BASOPHILS (test cod e = 704-7) 19 cells/uL ABSOLUTE BLASTS (test code = 76538-7) DNR cells/uL ABSOLUTE NUCLEATED RBC (test code = 70368-7) DNR cells/uL NEUTROPHILS (test code = 770-8) 57.1 % BAND NEUTROPHILS (test code = 764-1) DNR % METAMYELOCYTES (test code = 740-1) DNR % MYELOCYTES (test code = 749-2) DNR % PROMYELOCYTES (test code = 783-1) DNR % LYMPHOCYTES (test code = 736-9) 31.4 % REACTIVE LYMPHOCYTES (test code = 85867-6) DNR % MONOCYTES (test code = 5905-5) 8.3 % EOSINOPHILS (test code = 713-8) 2.8 % BASOPHILS (test code = 706-2) 0.4 % BLASTS (test code = 709-6) DNR % NUCLEATED RBC (test code = 72446-9) DNR /100WBC COMMENT(S) (test code = 8251-1) DNR LIPID PANEL (REFL)2020-10-06 00:00:00* Test Item Value Reference Range Interpretation Comme nts CHOLESTEROL, TOTAL (test cod e = 2093-3) 138 mg/dL HDL CHOLESTEROL (test code = 2085-9) 52 mg/dL TRIGLYCERIDES (test code = 2571-8) 78 mg/dL LDL-CHOLESTEROL (test code = 33819-6) 70 mg/dL(calc) CHOL/HDLC RATIO (test code = 9830-1) 2.7 (calc) NON HDL CHOLESTEROL (test co de = 20663-0) 86 mg/dL(calc) COMPREHENSIVE METABOLIC [id number] 00:00:00* Test Item Value Reference Range Interpretation Comme nts GLUCOSE (test code = 2345-7) 112 mg/dL UREA NITROGEN (BUN) (test code = 3094-0) 14 mg/dL CREATININE (test code = 2160-0) 0.71 mg/dL eGFR NON-AFR. BELIZEAN (test code = 78729-6) 123 mL/min/1.73m2 eGFR (test code = 59849-5) 143 mL/min/1.73m2 BUN/CREATININE RATIO (test code = 3097-3) NOT APPLICABLE (calc) SODIUM (test code = 2951-2) 141 mmol/L POTASSIUM (test code = 2823-3) 4.2 mmol/L CHLORIDE (test code = 5-0) 108 mmol/L CARBON DIOXIDE (test code = 2027-9) 23 mmol/L CALCIUM (test code = 43919-6) 9.4 mg/dL PROTEIN, TOTAL (test code = 2885-2) 6.7 g/dL ALBUMIN (test code = 1751-7) 4.3 g/dL GLOBULIN (test code = 21778-4) 2.4 g/dL(calc) ALBUMIN/GLOBULIN RATIO (test code = 1759-0) 1.8 (calc) BILIRUBIN, TOTAL (test code = 1974-2) 0.3 mg/dL ALKALINE PHOSPHATASE (test code = 6768-6) 54 U/L AST (test code = 1920-8) 16 U/L ALT (test code = 1742-6) 17 U/L [id number] 00:00:00* Test Item Value Reference Range Interpretation Comme nts TSH (test code = 3016-3) 0.93 mIU/L HEMOGLOBIN [id number] 00:00:00* Test Item Value Reference Range Interpretation Comme nts HEMOGLOBIN A1c (test code = 4548-4) 4.8 %oftotalHgb RPR (MONITOR) W/REFL [id number] 00:00:00* Test Item Value Reference Range Interpretation Comme nts RPR (MONITOR) W/REFL TITER ( test code = 57458-2) NON-REACTIVE HIV 1/2 ANTIGEN/ANTIBODY,FOURTH GENERATION [id number] 00:00:00* Test Item Value Reference Range Interpretation Comme nts HIV AG/AB, 4TH GEN (test cod e = 81156-9) NON-REACTIVE CBC (INCLUDES DIFF/PLT)2020-10-06 00:00:00* Test Item [...] cells/uL ABSOLUTE BAND NEUTROPHILS (test code = 47787-8) DNR cells/uL ABSOLUTE METAMYELOCYTES (vinod t code = 54063-7) DNR cells/uL ABSOLUTE MYELOCYTES (test code = 94994-5) DNR cells/uL ABSOLUTE PROMYELOCYTES (test code = 80852-8) DNR cells/uL ABSOLUTE LYMPHOCYTES (test code = 731-0) 1476 cells/uL ABSOLUTE MONOCYTES (test cod e = 742-7) 390 cells/uL ABSOLUTE EOSINOPHILS (test code = 711-2) 132 cells/uL ABSOLUTE BASOPHILS (test cod e = 704-7) 19 cells/uL ABSOLUTE BLASTS (test code = 37952-4) DNR cells/uL ABSOLUTE NUCLEATED RBC (test code = 98526-5) DNR cells/uL NEUTROPHILS (test code = 770-8) 57.1 % BAND NEUTROPHILS (test code = 764-1) DNR % METAMYELOCYTES (test code = 740-1) DNR % MYELOCYTES (test code = 749-2) DNR % PROMYELOCYTES (test code = 783-1) DNR % LYMPHOCYTES (test code = 736-9) 31.4 % REACTIVE LYMPHOCYTES (test code = 09677-7) DNR % MONOCYTES (test code = 5905-5) 8.3 % EOSINOPHILS (test code = 713-8) 2.8 % BASOPHILS (test code = 706-2) 0.4 % BLASTS (test code = 709-6) DNR % NUCLEATED RBC (test code = 86361-1) DNR /100WBC COMMENT(S) (test code = 8251-1) DNR LIPID PANEL (REFL)2020-10-06 00:00:00* Test Item Value Reference Range Interpretation Comme nts CHOLESTEROL, TOTAL (test cod e = 2093-3) 138 mg/dL HDL CHOLESTEROL (test code = 2085-9) 52 mg/dL TRIGLYCERIDES (test code = 2571-8) 78 mg/dL LDL-CHOLESTEROL (test code = 06189-9) 70 mg/dL(calc) CHOL/HDLC RATIO (test code = 9830-1) 2.7 (calc) NON HDL CHOLESTEROL (test co de = 61419-1) 86 mg/dL(calc) COMPREHENSIVE METABOLIC [id number] 00:00:00* Test Item Value Reference Range Interpretation Comme nts GLUCOSE (test code = 2345-7) 112 mg/dL UREA NITROGEN (BUN) (test code = 3094-0) 14 mg/dL CREATININE (test code = 2160-0) 0.71 mg/dL eGFR NON-AFR. BELIZEAN (test code = 28718-3) 123 mL/min/1.73m2 eGFR (test code = 00538-1) 143 mL/min/1.73m2 BUN/CREATININE RATIO (test code = 3097-3) NOT APPLICABLE (calc) SODIUM (test code = 2951-2) 141 mmol/L POTASSIUM (test code = 2823-3) 4.2 mmol/L CHLORIDE (test code = 2075-0) 108 mmol/L CARBON DIOXIDE (test code = 2027-9) 23 mmol/L CALCIUM (test code = 41254-9) 9.4 mg/dL PROTEIN, TOTAL (test code = 2885-2) 6.7 g/dL ALBUMIN (test code = 1751-7) 4.3 g/dL GLOBULIN (test code = 40632-9) 2.4 g/dL(calc) ALBUMIN/GLOBULIN RATIO (test code = 1759-0) 1.8 (calc) BILIRUBIN, TOTAL (test code = 1975-2) 0.3 mg/dL ALKALINE PHOSPHATASE (test code = 6768-6) 54 U/L AST (test code = 1920-8) 16 U/L ALT (test code = 1742-6) 17 U/L [id number] 00:00:00* Test Item Value Reference Range Interpretation Comme nts TSH (test code = 3016-3) 0.93 mIU/L HEMOGLOBIN [id number] 00:00:00* Test Item Value Reference Range Interpretation Comme nts HEMOGLOBIN A1c (test code = 4548-4) 4.8 %oftotalHgb RPR (MONITOR) W/REFL [id number] 00:00:00* Test Item Value Reference Range Interpretation Comme [facility] RPR (MONITOR) W/REFL TITER ( test code = 98594-9) NON-REACTIVE HIV 1/2 ANTIGEN/ANTIBODY,FOURTH GENERATION [id number] 00:00:00* Test Item Value Reference Range Interpretation Comme [facility] HIV AG/AB, 4TH GEN (test cod e = 21403-2) NON-REACTIVE CBC (INCLUDES DIFF/PLT)2020-10-06 00:00:00* Test Item [...] cells/uL ABSOLUTE BAND NEUTROPHILS (test code = 51369-7) DNR cells/uL ABSOLUTE METAMYELOCYTES (vinod t code = 71067-8) DNR cells/uL ABSOLUTE MYELOCYTES (test code = 18145-5) DNR cells/uL ABSOLUTE PROMYELOCYTES (test code = 73572-6) DNR cells/uL ABSOLUTE LYMPHOCYTES (test code = 731-0) 1476 cells/uL ABSOLUTE MONOCYTES (test cod e = 742-7) 390 cells/uL ABSOLUTE EOSINOPHILS (test code = 711-2) 132 cells/uL ABSOLUTE BASOPHILS (test cod e = 704-7) 19 cells/uL ABSOLUTE BLASTS (test code = 93630-2) DNR cells/uL ABSOLUTE NUCLEATED RBC (test code = 26772-7) DNR cells/uL NEUTROPHILS (test code = 770-8) 57.1 % BAND NEUTROPHILS (test code = 764-1) DNR % METAMYELOCYTES (test code = 740-1) DNR % MYELOCYTES (test code = 749-2) DNR % PROMYELOCYTES (test code = 783-1) DNR % LYMPHOCYTES (test code = 736-9) 31.4 % REACTIVE LYMPHOCYTES (test code = 58234-2) DNR % MONOCYTES (test code = 5905-5) 8.3 % EOSINOPHILS (test code = 713-8) 2.8 % BASOPHILS (test code = 706-2) 0.4 % BLASTS (test code = 709-6) DNR % NUCLEATED RBC (test code = 41946-3) DNR /100WBC COMMENT(S) (test code = 8251-1) DNR LIPID PANEL (REFL)2020-10-06 00:00:00* Test Item Value Reference Range Interpretation Comme nts CHOLESTEROL, TOTAL (test cod e = 2093-3) 138 mg/dL HDL CHOLESTEROL (test code = 2085-9) 52 mg/dL TRIGLYCERIDES (test code = 2571-8) 78 mg/dL LDL-CHOLESTEROL (test code = 28437-9) 70 mg/dL(calc) CHOL/HDLC RATIO (test code = 9830-1) 2.7 (calc) NON HDL CHOLESTEROL (test co de = 81668-4) 86 mg/dL(calc) COMPREHENSIVE METABOLIC [id number] 00:00:00* Test Item Value Reference Range Interpretation Comme nts GLUCOSE (test code = 2345-7) 112 mg/dL UREA NITROGEN (BUN) (test code = 3094-0) 14 mg/dL CREATININE (test code = 2160-0) 0.71 mg/dL eGFR NON-AFR. BELIZEAN (test code = 79216-1) 123 mL/min/1.73m2 eGFR (test code = 92633-6) 143 mL/min/1.73m2 BUN/CREATININE RATIO (test code = 3097-3) NOT APPLICABLE (calc) SODIUM (test code = 2951-2) 141 mmol/L POTASSIUM (test code = 2823-3) 4.2 mmol/L CHLORIDE (test code = 2075-0) 108 mmol/L CARBON DIOXIDE (test code = 2027-9) 23 mmol/L CALCIUM (test code = 94416-1) 9.4 mg/dL PROTEIN, TOTAL (test code = 2885-2) 6.7 g/dL ALBUMIN (test code = 1751-7) 4.3 g/dL GLOBULIN (test code = 68256-1) 2.4 g/dL(calc) ALBUMIN/GLOBULIN RATIO (test code = 1759-0) 1.8 (calc) BILIRUBIN, TOTAL (test code = 1975-2) 0.3 mg/dL ALKALINE PHOSPHATASE (test code = 6768-6) 54 U/L AST (test code = 1920-8) 16 U/L ALT (test code = 1742-6) 17 U/L [id number] 00:00:00* Test Item Value Reference Range Interpretation Comme nts TSH (test code = 3016-3) 0.93 mIU/L HEMOGLOBIN [id number] 00:00:00* Test Item Value Reference Range Interpretation Comme nts HEMOGLOBIN A1c (test code = 4548-4) 4.8 %oftotalHgb RPR (MONITOR) W/REFL [id number] 00:00:00* Test Item Value Reference Range Interpretation Comme nts RPR (MONITOR) W/REFL TITER ( test code = 17604-1) NON-REACTIVE BV/VAGINITIS PANEL DNA [id number] 00:00:00* Test Item Value Reference Range Interpretation Comme nts TRICHOMONAS: (test code = 6568-0) NOT DETECTED GARDNERELLA: (test code = 6410-5) DETECTED SUZE: (test code = 84122-9) DETECTED BV/VAGINITIS PANEL DNA [id number] 00:00:00* Test Item Value Reference Range Interpretation Comme nts TRICHOMONAS: (test code = 6568-0) NOT DETECTED GARDNERELLA: (test code = 6410-5) DETECTED SUZE: (test code = 95612-1) DETECTED BV/VAGINITIS PANEL DNA [id number] 00:00:00* Test Item Value Reference Range Interpretation Comme nts TRICHOMONAS: (test code = 6568-0) NOT DETECTED GARDNERELLA: (test code = 6410-5) DETECTED SUZE: (test code = 51223-7) DETECTED BV/VAGINITIS PANEL DNA [id number] 00:00:00* Test Item Value Reference Range Interpretation Comme nts TRICHOMONAS: (test code = 6568-0) NOT DETECTED GARDNERELLA: (test code = 6410-5) DETECTED SUZE: (test code = 62897-4) NOT DETECTED BV/VAGINITIS PANEL DNA [id number] 00:00:00* Test Item Value Reference Range Interpretation Comme nts TRICHOMONAS: (test code = 6568-0) NOT DETECTED GARDNERELLA: (test code = 6410-5) DETECTED SUZE: (test code = 79108-7) NOT DETECTED BV/VAGINITIS PANEL DNA [id number] 00:00:00* Test Item Value Reference Range Interpretation Comme nts TRICHOMONAS: (test code = 6568-0) NOT DETECTED GARDNERELLA: (test code = 6410-5) DETECTED SUZE: (test code = 59016-2) NOT DETECTED CHLAMYDIA TRACHOMATIS RNA, [id number] 00:00:00* Test Item Value Reference Range Interpretation Comme nts CHLAMYDIA TRACHOMATIS RNA, T MA, UROGENITAL (test code = 55220-5) NOT DETECTED COMMENT (test code = ) HEPATITIS PANEL, [id number] 00:00:00* Test Item Value Reference Range Interpretation Comme nts HEPATITIS A AB, TOTAL (test code = 47513-6) REACTIVE HEPATITIS B SURFACE ANTIBODY QL (test code = 59473-6) NON-REACTIVE HEPATITIS B SURFACE ANTIGEN (test code = 5196-1) NON-REACTIVE CONFIRMATION (test code = 7905-3) DNR HEPATITIS B CORE AB TOTAL (t est code = 51197-9) NON-REACTIVE HEPATITIS C ANTIBODY (test c ode = 01065-4) NON-REACTIVE SIGNAL TO CUT-OFF (test code = 46245-6) 0.02 NEISSERIA GONORRHOEAE RNA, [id number] 00:00:00* Test Item Value Reference Range Interpretation Comme nts NEISSERIA GONORRHOEAE RNA, T MA, UROGENITAL (test code = 04970-2) NOT DETECTED COMMENT (test code = ) RPR (MONITOR) W/REFL [id number] 00:00:00* Test Item Value Reference Range Interpretation Comme nts RPR (MONITOR) W/REFL TITER ( test code = 82497-6) NON-REACTIVE CHLAMYDIA TRACHOMATIS RNA, [id number] 00:00:00* Test Item Value Reference Range Interpretation Comme nts CHLAMYDIA TRACHOMATIS RNA, T MA, UROGENITAL (test code = 97764-5) NOT DETECTED COMMENT (test code = ) HIV 1/2 ANTIGEN/ANTIBODY,FOURTH GENERATION [id number] 00:00:00* Test Item Value Reference Range Interpretation Comme nts HIV AG/AB, 4TH GEN (test cod e = 79942-8) NON-REACTIVE NEISSERIA GONORRHOEAE RNA, [id number] 00:00:00* Test Item Value Reference Range Interpretation Comme nts NEISSERIA GONORRHOEAE RNA, T MA, UROGENITAL (test code = 53997-2) NOT DETECTED COMMENT (test code = ) HEPATITIS PANEL, [id number] 00:00:00* Test Item Value Reference Range Interpretation Comme nts HEPATITIS A AB, TOTAL (test code = 12121-2) REACTIVE HEPATITIS B SURFACE ANTIBODY QL (test code = 44010-4) NON-REACTIVE HEPATITIS B SURFACE ANTIGEN (test code = 5196-1) NON-REACTIVE CONFIRMATION (test code = 7905-3) DNR HEPATITIS B CORE AB TOTAL (t est code = 41411-9) NON-REACTIVE HEPATITIS C ANTIBODY (test c ode = 67334-3) NON-REACTIVE SIGNAL TO CUT-OFF (test code = 33456-6) 0.02 RPR (MONITOR) W/REFL [id number] 00:00:00* Test Item Value Reference Range Interpretation Comme nts RPR (MONITOR) W/REFL TITER ( test code = 11855-1) NON-REACTIVE CHLAMYDIA TRACHOMATIS RNA, [id number] 00:00:00* Test Item Value Reference Range Interpretation Comme nts CHLAMYDIA TRACHOMATIS RNA, T MA, UROGENITAL (test code = 89888-1) NOT DETECTED COMMENT (test code = ) HIV 1/2 ANTIGEN/ANTIBODY,FOURTH GENERATION [id number] 00:00:00* Test Item Value Reference Range Interpretation Comme nts HIV AG/AB, 4TH GEN (test cod e = 70069-4) NON-REACTIVE NEISSERIA GONORRHOEAE RNA, [id number] 00:00:00* Test Item Value Reference Range Interpretation Comme nts NEISSERIA GONORRHOEAE RNA, T MA, UROGENITAL (test code = 03375-6) NOT DETECTED COMMENT (test code = ) HEPATITIS PANEL, [id number] 00:00:00* Test Item Value Reference Range Interpretation Comme nts HEPATITIS A AB, TOTAL (test code = 83821-3) REACTIVE HEPATITIS B SURFACE ANTIBODY QL (test code = 74233-3) NON-REACTIVE HEPATITIS B SURFACE ANTIGEN (test code = 5196-1) NON-REACTIVE CONFIRMATION (test code = 7905-3) DNR HEPATITIS B CORE AB TOTAL (t est code = 45933-1) NON-REACTIVE HEPATITIS C ANTIBODY (test c ode = 49607-0) NON-REACTIVE SIGNAL TO CUT-OFF (test code = 34228-6) 0.02 RPR (MONITOR) W/REFL [id number] 00:00:00* Test Item Value Reference Range Interpretation Comme nts RPR (MONITOR) W/REFL TITER ( test code = 18799-2) NON-REACTIVE HIV 1/2 ANTIGEN/ANTIBODY,FOURTH GENERATION [id number] 00:00:00* Test Item Value Reference Range Interpretation Comme nts HIV AG/AB, 4TH GEN (test cod e = 77165-9) NON-REACTIVE GC AND CHLAMYDIA, AMPLIFIED, [id number] 00:00:00* Test Item Value Reference Range Interpretation Comme nts GONORRHEA, TMA (test code = 86752) NEGATIVE CHLAMYDIA, TMA (test code = 33553) NEGATIVE GC AND CHLAMYDIA, AMPLIFIED, [id number] 00:00:00* Test Item Value Reference Range Interpretation Comme nts GONORRHEA, TMA (test code = 08414) NEGATIVE CHLAMYDIA, TMA (test code = 35744) NEGATIVE GC AND CHLAMYDIA, AMPLIFIED, [id number] 00:00:00* Test Item Value Reference Range Interpretation Comme nts GONORRHEA, TMA (test code = 19347) NEGATIVE CHLAMYDIA, TMA (test code = 20555) NEGATIVE GC AND CHLAMYDIA, AMPLIFIED, [id number] 00:00:00* Test Item Value Reference Range Interpretation Comme nts GONORRHEA, TMA (test code = 07694) NEGATIVE CHLAMYDIA, TMA (test code = 69296) NEGATIVE GC AND CHLAMYDIA, AMPLIFIED, [id number] 00:00:00* Test Item Value Reference Range Interpretation Comme nts GONORRHEA, TMA (test code = 97389) NEGATIVE CHLAMYDIA, TMA (test code = 21213) NEGATIVE GC AND CHLAMYDIA, AMPLIFIED, [id number] 00:00:00* Test Item Value Reference Range Interpretation Comme nts GONORRHEA, TMA (test code = 73713) NEGATIVE CHLAMYDIA, TMA (test code = 22016) NEGATIVE CT/NG, TMA, SIMPLESWAB [ADDED]2020-02-13 00:00:00* Test Item Value Reference Range Interpretation Comme nts CHLAMYDIA, TMA (test code = 64166) TEST NOT PERFORMED GONORRHEA, TMA (test code = 77640) TEST NOT PERFORMED CT/NG, TMA, SIMPLESWAB [ADDED]2020-02-13 00:00:00* Test Item Value Reference Range Interpretation Comme nts CHLAMYDIA, TMA (test code = 79304) TEST NOT PERFORMED GONORRHEA, TMA (test code = 59248) TEST NOT PERFORMED CT/NG, TMA, SIMPLESWAB [ADDED]2020-02-13 00:00:00* Test Item Value Reference Range Interpretation Comme nts CHLAMYDIA, TMA (test code = 25016) TEST NOT PERFORMED GONORRHEA, TMA (test code = 83638) TEST NOT PERFORMED CT/NG, TMA, SIMPLESWAB [ADDED]2020-02-13 00:00:00* Test Item Value Reference Range Interpretation Comme nts CHLAMYDIA, TMA (test code = 38655) TEST NOT PERFORMED GONORRHEA, TMA (test code = 91652) TEST NOT PERFORMED CT/NG, TMA, SIMPLESWAB [ADDED]2020-02-13 00:00:00* Test Item Value Reference Range Interpretation Comme nts CHLAMYDIA, TMA (test code = 44227) TEST NOT PERFORMED GONORRHEA, TMA (test code = 68597) TEST NOT PERFORMED CT/NG, TMA, SIMPLESWAB [ADDED]2020-02-13 00:00:00* Test Item Value Reference Range Interpretation Comme nts CHLAMYDIA, TMA (test code = 56856) TEST NOT PERFORMED GONORRHEA, TMA (test code = 30571) TEST NOT PERFORMED GC AND CHLAMYDIA, AMPLIFIED, [id number] 00:00:00* Test Item Value Reference Range Interpretation Comme nts GONORRHEA, TMA (test code = 14583) TEST NOT PERFORMED CHLAMYDIA, TMA (test code = 70787) TEST NOT PERFORMED GC AND CHLAMYDIA, AMPLIFIED, [id number] 00:00:00* Test Item Value Reference Range Interpretation Comme nts GONORRHEA, TMA (test code = 06322) TEST NOT PERFORMED CHLAMYDIA, TMA (test code = 29078) TEST NOT PERFORMED GC AND CHLAMYDIA AMPLIFIED, [id number] 00:00:00* Test Item Value Reference Range Interpretation Comme nts CHLAMYDIA, TMA (test code = 47758) TEST NOT PERFORMED GONORRHEA, TMA (test code = 85511) TEST NOT PERFORMED GC AND CHLAMYDIA AMPLIFIED, [id number] 00:00:00* Test Item Value Reference Range Interpretation Comme nts CHLAMYDIA, TMA (test code = 65694) TEST NOT PERFORMED GONORRHEA, TMA (test code = 43366) TEST NOT PERFORMED GC AND CHLAMYDIA, AMPLIFIED, [id number] 00:00:00* Test Item Value Reference Range Interpretation Comme nts GONORRHEA, TMA (test code = 28154) TEST NOT PERFORMED CHLAMYDIA, TMA (test code = 89629) TEST NOT PERFORMED GC AND CHLAMYDIA, AMPLIFIED, [id number] 00:00:00* Test Item Value Reference Range Interpretation Comme nts GONORRHEA, TMA (test code = 79785) TEST NOT PERFORMED CHLAMYDIA, TMA (test code = 97015) TEST NOT PERFORMED GC AND CHLAMYDIA AMPLIFIED, [id number] 00:00:00* Test Item Value Reference Range Interpretation Comme nts CHLAMYDIA, TMA (test code = 17807) TEST NOT PERFORMED GONORRHEA, TMA (test code = 65565) TEST NOT PERFORMED GC AND CHLAMYDIA AMPLIFIED, [id number] 00:00:00* Test Item Value Reference Range Interpretation Comme nts CHLAMYDIA, TMA (test code = 77326) TEST NOT PERFORMED GONORRHEA, TMA (test code = 42533) TEST NOT PERFORMED GC AND CHLAMYDIA, AMPLIFIED, [id number] 00:00:00* Test Item Value Reference Range Interpretation Comme nts GONORRHEA, TMA (test code = 17523) TEST NOT PERFORMED CHLAMYDIA, TMA (test code = 12777) TEST NOT PERFORMED GC AND CHLAMYDIA, AMPLIFIED, [id number] 00:00:00* Test Item Value Reference Range Interpretation Comme nts GONORRHEA, TMA (test code = 85445) TEST NOT PERFORMED CHLAMYDIA, TMA (test code = 21965) TEST NOT PERFORMED GC AND CHLAMYDIA AMPLIFIED, [id number] 00:00:00* Test Item Value Reference Range Interpretation Comme nts CHLAMYDIA, TMA (test code = 97501) TEST NOT PERFORMED GONORRHEA, TMA (test code = 61947) TEST NOT PERFORMED GC AND CHLAMYDIA AMPLIFIED, [id number] 00:00:00* Test Item Value Reference Range Interpretation Comme nts CHLAMYDIA, TMA (test code = 29556) TEST NOT PERFORMED GONORRHEA, TMA (test code = 15751) TEST NOT PERFORMED VAGINAL PATHOGENS DNA [id number] 00:00:00* Test Item Value Reference Range Interpretation Comme nts SUZE SPECIES (test code = 63965) NEGATIVE G. VAGINALIS (test code = 82649) NEGATIVE T. VAGINALIS (test code = 15917) NEGATIVE VAGINAL PATHOGENS DNA [id number] 00:00:00* Test Item Value Reference Range Interpretation Comme nts SUZE SPECIES (test code = 10598) NEGATIVE G. VAGINALIS (test code = 31914) NEGATIVE T. VAGINALIS (test code = 15245) NEGATIVE VAGINAL PATHOGENS DNA [id number] 00:00:00* Test Item Value Reference Range Interpretation Comme nts SUZE SPECIES (test code = 09570) NEGATIVE G. VAGINALIS (test code = 24505) NEGATIVE T. VAGINALIS (test code = 29891) NEGATIVE VAGINAL PATHOGENS DNA [id number] 00:00:00* Test Item Value Reference Range Interpretation Comme nts SUZE SPECIES (test code = 41923) NEGATIVE G. VAGINALIS (test code = 24104) NEGATIVE T. VAGINALIS (test code = 96426) NEGATIVE VAGINAL PATHOGENS DNA [id number] 00:00:00* Test Item Value Reference Range Interpretation Comme nts SUZE SPECIES (test code = 33972) NEGATIVE G. VAGINALIS (test code = 08626) NEGATIVE T. VAGINALIS (test code = 10264) NEGATIVE VAGINAL PATHOGENS DNA [id number] 00:00:00* Test Item Value Reference Range Interpretation Comme nts SUZE SPECIES (test code = 66564) NEGATIVE G. VAGINALIS (test code = 32391) NEGATIVE T. VAGINALIS (test code = 18675) NEGATIVE SARS-CoV-2 (COVID-19) by RT-PCR (HIGH RISK)2019-12-21 00:00:00* Test Item Value Reference Range Interpretation Comme nts SARS-CoV-2 INTERPRETATION (test code = 35600) NEGATIVE SOURCE (test code = 56025) NASOPHARYNGEAL SARS-CoV-2 (COVID-19) by RT-PCR (HIGH RISK)2019-12-21 00:00:00* Test Item Value Reference Range Interpretation Comme nts SARS-CoV-2 INTERPRETATION (test code = 75231) NEGATIVE SOURCE (test code = 20741) NASOPHARYNGEAL SARS-CoV-2 (COVID-19) by RT-PCR (HIGH RISK)2019-12-21 00:00:00* Test Item Value Reference Range Interpretation Comme nts SARS-CoV-2 INTERPRETATION (test code = 59890) NEGATIVE SOURCE (test code = 35758) NASOPHARYNGEAL SARS-CoV-2 (COVID-19) by RT-PCR (HIGH RISK)2019-12-21 00:00:00* Test Item Value Reference Range Interpretation Comme nts SARS-CoV-2 INTERPRETATION (test code = 82189) NEGATIVE SOURCE (test code = 19987) NASOPHARYNGEAL SARS-CoV-2 (COVID-19) by RT-PCR (HIGH RISK)2019-12-21 00:00:00* Test Item Value Reference Range Interpretation Comme nts SARS-CoV-2 INTERPRETATION (test code = 41891) NEGATIVE SOURCE (test code = 86873) NASOPHARYNGEAL SARS-CoV-2 (COVID-19) by RT-PCR (HIGH RISK)2019-12-21 00:00:00* Test Item Value Reference Range Interpretation Comme nts SARS-CoV-2 INTERPRETATION (test code = 01381) NEGATIVE SOURCE (test code = 62197) NASOPHARYNGEAL HEMOGLOBIN [id number] 00:00:00* Test Item Value Reference Range Interpretation [...] cells/uL ABSOLUTE BAND NEUTROPHILS (test code = 44907-3) DNR cells/uL ABSOLUTE METAMYELOCYTES (vinod t code = 88378-0) DNR cells/uL ABSOLUTE MYELOCYTES (test code = 42135-1) DNR cells/uL ABSOLUTE PROMYELOCYTES (test code = 63901-7) DNR cells/uL ABSOLUTE LYMPHOCYTES (test code = 731-0) 2268 cells/uL ABSOLUTE MONOCYTES (test cod e = 742-7) 622 cells/uL ABSOLUTE EOSINOPHILS (test code = 711-2) 160 cells/uL ABSOLUTE BASOPHILS (test cod e = 704-7) 50 cells/uL ABSOLUTE BLASTS (test code = 17184-4) DNR cells/uL ABSOLUTE NUCLEATED RBC (test code = 83798-1) DNR cells/uL NEUTROPHILS (test code = 770-8) 63.1 % BAND NEUTROPHILS (test code = 764-1) DNR % METAMYELOCYTES (test code = 740-1) DNR % MYELOCYTES (test code = 749-2) DNR % PROMYELOCYTES (test code = 783-1) DNR % LYMPHOCYTES (test code = 736-9) 27.0 % REACTIVE LYMPHOCYTES (test code = 82032-9) DNR % MONOCYTES (test code = 5905-5) 7.4 % EOSINOPHILS (test code = 713-8) 1.9 % BASOPHILS (test code = 706-2) 0.6 % BLASTS (test code = 709-6) DNR % NUCLEATED RBC (test code = 85693-0) DNR /100WBC COMMENT(S) (test code = 8251-1) DNR COMPREHENSIVE METABOLIC [id number] 00:00:00* Test Item Value Reference Range Interpretation Comme nts GLUCOSE (test code = 2345-7) 113 mg/dL UREA NITROGEN (BUN) (test code = 3094-0) 12 mg/dL CREATININE (test code = 2160-0) 0.62 mg/dL eGFR NON-AFR. BELIZEAN (test code = 42055-3) 131 mL/min/1.73m2 eGFR (test code = 98968-3) 152 mL/min/1.73m2 BUN/CREATININE RATIO (test code = 3097-3) NOT APPLICABLE (calc) SODIUM (test code = 2951-2) 138 mmol/L POTASSIUM (test code = 2823-3) 3.9 mmol/L CHLORIDE (test code = 2075-0) 105 mmol/L CARBON DIOXIDE (test code = 2027-9) 26 mmol/L CALCIUM (test code = 39238-4) 9.5 mg/dL PROTEIN, TOTAL (test code = 2885-2) 7.1 g/dL ALBUMIN (test code = 1751-7) 4.7 g/dL GLOBULIN (test code = 26458-3) 2.4 g/dL(calc) ALBUMIN/GLOBULIN RATIO (test code = 1759-0) 2.0 (calc) BILIRUBIN, TOTAL (test code = 1975-2) 1.1 mg/dL ALKALINE PHOSPHATASE (test code = 6768-6) 53 U/L AST (test code = 1920-8) 13 U/L ALT (test code = 1742-6) 10 U/L LIPID [id number] 00:00:00* Test Item Value Reference Range Interpretation Comme nts CHOLESTEROL, TOTAL (test cod e = 2093-3) 141 mg/dL HDL CHOLESTEROL (test code = 2085-9) 54 mg/dL TRIGLYCERIDES (test code = 2571-8) 62 mg/dL LDL-CHOLESTEROL (test code = 42258-9) 73 mg/dL(calc) CHOL/HDLC RATIO (test code = 9830-1) 2.6 (calc) NON HDL CHOLESTEROL (test co de = 43180-0) 87 mg/dL(calc) HEMOGLOBIN [id number] 00:00:00* Test Item Value Reference Range Interpretation [...] cells/uL ABSOLUTE BAND NEUTROPHILS (test code = 52359-0) DNR cells/uL ABSOLUTE METAMYELOCYTES (vinod t code = 97524-1) DNR cells/uL ABSOLUTE MYELOCYTES (test code = 22041-2) DNR cells/uL ABSOLUTE PROMYELOCYTES (test code = 01116-0) DNR cells/uL ABSOLUTE LYMPHOCYTES (test code = 731-0) 2268 cells/uL ABSOLUTE MONOCYTES (test cod e = 742-7) 622 cells/uL ABSOLUTE EOSINOPHILS (test code = 711-2) 160 cells/uL ABSOLUTE BASOPHILS (test cod e = 704-7) 50 cells/uL ABSOLUTE BLASTS (test code = 77112-0) DNR cells/uL ABSOLUTE NUCLEATED RBC (test code = 55245-3) DNR cells/uL NEUTROPHILS (test code = 770-8) 63.1 % BAND NEUTROPHILS (test code = 764-1) DNR % METAMYELOCYTES (test code = 740-1) DNR % MYELOCYTES (test code = 749-2) DNR % PROMYELOCYTES (test code = 783-1) DNR % LYMPHOCYTES (test code = 736-9) 27.0 % REACTIVE LYMPHOCYTES (test code = 01486-1) DNR % MONOCYTES (test code = 5905-5) 7.4 % EOSINOPHILS (test code = 713-8) 1.9 % BASOPHILS (test code = 706-2) 0.6 % BLASTS (test code = 709-6) DNR % NUCLEATED RBC (test code = 54092-3) DNR /100WBC COMMENT(S) (test code = 8251-1) DNR COMPREHENSIVE METABOLIC [id number] 00:00:00* Test Item Value Reference Range Interpretation Comme nts GLUCOSE (test code = 2345-7) 113 mg/dL UREA NITROGEN (BUN) (test code = 3094-0) 12 mg/dL CREATININE (test code = 2160-0) 0.62 mg/dL eGFR NON-AFR. BELIZEAN (test code = 27327-6) 131 mL/min/1.73m2 eGFR (test code = 94391-0) 152 mL/min/1.73m2 BUN/CREATININE RATIO (test code = 3097-3) NOT APPLICABLE (calc) SODIUM (test code = 2951-2) 138 mmol/L POTASSIUM (test code = 2823-3) 3.9 mmol/L CHLORIDE (test code = 2075-0) 105 mmol/L CARBON DIOXIDE (test code = 2027-9) 26 mmol/L CALCIUM (test code = 16304-9) 9.5 mg/dL PROTEIN, TOTAL (test code = 2885-2) 7.1 g/dL ALBUMIN (test code = 1751-7) 4.7 g/dL GLOBULIN (test code = 93909-9) 2.4 g/dL(calc) ALBUMIN/GLOBULIN RATIO (test code = 1759-0) 2.0 (calc) BILIRUBIN, TOTAL (test code = 1975-2) 1.1 mg/dL ALKALINE PHOSPHATASE (test code = 6768-6) 53 U/L AST (test code = 1920-8) 13 U/L ALT (test code = 1742-6) 10 U/L LIPID [id number] 00:00:00* Test Item Value Reference Range Interpretation Comme nts CHOLESTEROL, TOTAL (test cod e = 2093-3) 141 mg/dL HDL CHOLESTEROL (test code = 2085-9) 54 mg/dL TRIGLYCERIDES (test code = 2571-8) 62 mg/dL LDL-CHOLESTEROL (test code = 63196-6) 73 mg/dL(calc) CHOL/HDLC RATIO (test code = 9830-1) 2.6 (calc) NON HDL CHOLESTEROL (test co de = 41757-4) 87 mg/dL(calc) HEMOGLOBIN [id number] 00:00:00* Test Item Value Reference Range Interpretation Comme [facility] HEMOGLOBIN A1c (test code = 4548-4) 5.0 [...] cells/uL ABSOLUTE BAND NEUTROPHILS (test code = 82942-0) DNR cells/uL ABSOLUTE METAMYELOCYTES (vinod t code = 39266-3) DNR cells/uL ABSOLUTE MYELOCYTES (test code = 27945-5) DNR cells/uL ABSOLUTE PROMYELOCYTES (test code = 28531-9) DNR cells/uL ABSOLUTE LYMPHOCYTES (test code = 731-0) 2268 cells/uL ABSOLUTE MONOCYTES (test cod e = 742-7) 622 cells/uL ABSOLUTE EOSINOPHILS (test code = 711-2) 160 cells/uL ABSOLUTE BASOPHILS (test cod e = 704-7) 50 cells/uL ABSOLUTE BLASTS (test code = 92708-5) DNR cells/uL ABSOLUTE NUCLEATED RBC (test code = 64159-0) DNR cells/uL NEUTROPHILS (test code = 770-8) 63.1 % BAND NEUTROPHILS (test code = 764-1) DNR % METAMYELOCYTES (test code = 740-1) DNR % MYELOCYTES (test code = 749-2) DNR % PROMYELOCYTES (test code = 783-1) DNR % LYMPHOCYTES (test code = 736-9) 27.0 % REACTIVE LYMPHOCYTES (test code = 20866-6) DNR % MONOCYTES (test code = 5905-5) 7.4 % EOSINOPHILS (test code = 713-8) 1.9 % BASOPHILS (test code = 706-2) 0.6 % BLASTS (test code = 709-6) DNR % NUCLEATED RBC (test code = 63711-6) DNR /100WBC COMMENT(S) (test code = 8251-1) DNR COMPREHENSIVE METABOLIC [id number] 00:00:00* Test Item Value Reference Range Interpretation Comme nts GLUCOSE (test code = 2345-7) 113 mg/dL UREA NITROGEN (BUN) (test code = 3094-0) 12 mg/dL CREATININE (test code = 2160-0) 0.62 mg/dL eGFR NON-AFR. BELIZEAN (test code = 42740-4) 131 mL/min/1.73m2 eGFR (test code = 82475-4) 152 mL/min/1.73m2 BUN/CREATININE RATIO (test code = 3097-3) NOT APPLICABLE (calc) SODIUM (test code = 2951-2) 138 mmol/L POTASSIUM (test code = 2823-3) 3.9 mmol/L CHLORIDE (test code = 2075-0) 105 mmol/L CARBON DIOXIDE (test code = 2027-9) 26 mmol/L CALCIUM (test code = 51626-1) 9.5 mg/dL PROTEIN, TOTAL (test code = 2885-2) 7.1 g/dL ALBUMIN (test code = 1751-7) 4.7 g/dL GLOBULIN (test code = 85310-4) 2.4 g/dL(calc) ALBUMIN/GLOBULIN RATIO (test code = 1759-0) 2.0 (calc) BILIRUBIN, TOTAL (test code = 1975-2) 1.1 mg/dL ALKALINE PHOSPHATASE (test code = 6768-6) 53 U/L AST (test code = 1920-8) 13 U/L ALT (test code = 1742-6) 10 U/L LIPID [id number] 00:00:00* Test Item Value Reference Range Interpretation Comme nts CHOLESTEROL, TOTAL (test cod e = 2093-3) 141 mg/dL HDL CHOLESTEROL (test code = 2085-9) 54 mg/dL TRIGLYCERIDES (test code = 2571-8) 62 mg/dL LDL-CHOLESTEROL (test code = 77772-2) 73 mg/dL(calc) CHOL/HDLC RATIO (test code = 9830-1) 2.6 (calc) NON HDL CHOLESTEROL (test co de = 87739-3) 87 mg/dL(calc) HIV 1/2 ANTIGEN/ANTIBODY,FOURTH GENERATION [id number] 00:00:00* Test Item Value Reference Range Interpretation Comme nts HIV AG/AB, 4TH GEN (test cod e = 14037-0) TNP NEISSERIA GONORRHOEAE RNA, [id number] 00:00:00* Test Item Value Reference Range Interpretation Comme nts NEISSERIA GONORRHOEAE RNA, T MA, UROGENITAL (test code = 74055-1) NOT DETECTED COMMENT (test code = ) HEPATITIS PANEL, ACUTE W/REFLEX TO [id number] 00:00:00* Test Item Value Reference Range Interpretation Comme nts HEPATITIS A IGM (test code = 91822-5) NON-REACTIVE HEPATITIS B SURFACE ANTIGEN (test code = 5196-1) NON-REACTIVE CONFIRMATION (test code = 7905-3) DNR HEPATITIS B CORE ANTIBODY (I GM) (test code = 75832-8) NON-REACTIVE HEPATITIS C ANTIBODY (test c ode = 19402-2) NON-REACTIVE SIGNAL TO CUT-OFF (test code = 85023-3) 0.03 RPR (MONITOR) W/REFL [id number] 00:00:00* Test Item Value Reference Range Interpretation Comme nts RPR (MONITOR) W/REFL TITER ( test code = 29302-0) TNP CHLAMYDIA TRACHOMATIS RNA, [id number] 00:00:00* Test Item Value Reference Range Interpretation Comme nts CHLAMYDIA TRACHOMATIS RNA, T MA, UROGENITAL (test code = 99967-5) NOT DETECTED COMMENT (test code = ) HIV 1/2 ANTIGEN/ANTIBODY,FOURTH GENERATION [id number] 00:00:00* Test Item Value Reference Range Interpretation Comme nts HIV AG/AB, 4TH GEN (test cod e = 40368-1) TNP NEISSERIA GONORRHOEAE RNA, [id number] 00:00:00* Test Item Value Reference Range Interpretation Comme nts NEISSERIA GONORRHOEAE RNA, T MA, UROGENITAL (test code = 82982-2) NOT DETECTED COMMENT (test code = ) HEPATITIS PANEL, ACUTE W/REFLEX TO [id number] 00:00:00* Test Item Value Reference Range Interpretation Comme nts HEPATITIS A IGM (test code = 24628-5) NON-REACTIVE HEPATITIS B SURFACE ANTIGEN (test code = 5196-1) NON-REACTIVE CONFIRMATION (test code = 7905-3) DNR HEPATITIS B CORE ANTIBODY (I GM) (test code = 15648-6) NON-REACTIVE HEPATITIS C ANTIBODY (test c ode = 19328-8) NON-REACTIVE SIGNAL TO CUT-OFF (test code = 63066-5) 0.03 RPR (MONITOR) W/REFL [id number] 00:00:00* Test Item Value Reference Range Interpretation Comme nts RPR (MONITOR) W/REFL TITER ( test code = 08378-9) TNP CHLAMYDIA TRACHOMATIS RNA, [id number] 00:00:00* Test Item Value Reference Range Interpretation Comme nts CHLAMYDIA TRACHOMATIS RNA, T MA, UROGENITAL (test code = 68842-9) NOT DETECTED COMMENT (test code = ) HIV 1/2 ANTIGEN/ANTIBODY,FOURTH GENERATION [id number] 00:00:00* Test Item Value Reference Range Interpretation Comme nts HIV AG/AB, 4TH GEN (test cod e = 15446-3) TNP NEISSERIA GONORRHOEAE RNA, [id number] 00:00:00* Test Item Value Reference Range Interpretation Comme nts NEISSERIA GONORRHOEAE RNA, T MA, UROGENITAL (test code = 02362-5) NOT DETECTED COMMENT (test code = ) HEPATITIS PANEL, ACUTE W/REFLEX TO [id number] 00:00:00* Test Item Value Reference Range Interpretation Comme nts HEPATITIS A IGM (test code = 32654-4) NON-REACTIVE HEPATITIS B SURFACE ANTIGEN (test code = 5196-1) NON-REACTIVE CONFIRMATION (test code = 7905-3) DNR HEPATITIS B CORE ANTIBODY (I GM) (test code = 95717-9) NON-REACTIVE HEPATITIS C ANTIBODY (test c ode = 60918-5) NON-REACTIVE SIGNAL TO CUT-OFF (test code = 80387-4) 0.03 RPR (MONITOR) W/REFL [id number] 00:00:00* Test Item Value Reference Range Interpretation Comme nts RPR (MONITOR) W/REFL TITER ( test code = 67521-1) TNP CHLAMYDIA TRACHOMATIS RNA, [id number] 00:00:00* Test Item Value Reference Range Interpretation Comme nts CHLAMYDIA TRACHOMATIS RNA, T MA, UROGENITAL (test code = 80662-7) NOT DETECTED COMMENT (test code = ) VAGINAL PATHOGENS DNA [id number] 00:00:00* Test Item Value Reference Range Interpretation Comme nts SUZE SPECIES (test code = ) POSITIVE G. VAGINALIS (test code = 66133) NEGATIVE T. VAGINALIS (test code = 22049) NEGATIVE VAGINAL PATHOGENS DNA [id number] 00:00:00* Test Item Value Reference Range Interpretation Comme nts SUZE SPECIES (test code = ) POSITIVE G. VAGINALIS (test code = 99196) NEGATIVE T. VAGINALIS (test code = 72488) NEGATIVE ACUTE HEPATITIS [id number] 00:00:00* Test Item Value Reference Range Interpretation Comme nts HEPATITIS A IgM (test code = 32054) NON-REACTIVE HEPATITIS B CORE IgM (test c ode = 4644) NON-REACTIVE HEPATITIS B SURF AG (test co de = 2739) NON-REACTIVE HEPATITIS C ANTIBODY (test c ode = 4675) NON-REACTIVE HCV INDEX (test code = 79248) 0.08 INTERPRETATION HEPATITIS A: (test code = 2552) (NOTE) INTERPRETATION HEPATITIS B: (test code = 65261) (NOTE) INTERPRETATION HEPATITIS C: (test code = 54336) (NOTE) ACUTE HEPATITIS [id number] 00:00:00* Test Item Value Reference Range Interpretation Comme nts HEPATITIS A IgM (test code = 79813) NON-REACTIVE HEPATITIS B CORE IgM (test c ode = 4644) NON-REACTIVE HEPATITIS B SURF AG (test co de = 2739) NON-REACTIVE HEPATITIS C ANTIBODY (test c ode = 4675) NON-REACTIVE HCV INDEX (test code = 05622) 0.08 INTERPRETATION HEPATITIS A: (test code = 2552) (NOTE) INTERPRETATION HEPATITIS B: (test code = 94921) (NOTE) INTERPRETATION HEPATITIS C: (test code = 73829) (NOTE) HIV AB/AG COMBO RFLX [id number] 00:00:00* Test Item Value Reference Range Interpretation Comme nts HIV 1/2 4TH GEN, RFLX CONF ( test code = 3514) NON-REACTIVE HIV AB/AG COMBO RFLX [id number] 00:00:00* Test Item Value Reference Range Interpretation Comme nts HIV 1/2 4TH GEN, RFLX CONF ( test code = 3514) NON-REACTIVE [id number] 00:00:00* Test Item Value Reference Range Interpretation Comme nts RPR RESULT (test code = 3501) NON-REACTIVE RPR TITER (test code = 3500) NOT INDIC. TITER [id number] 00:00:00* Test Item Value Reference Range Interpretation Comme nts RPR RESULT (test code = 3501) NON-REACTIVE RPR TITER (test code = 3500) NOT INDIC. TITER [id number] 00:00:00* Test Item Value Reference Range Interpretation Comme nts RPR RESULT (test code = 3501) NON-REACTIVE RPR TITER (test code = 3500) NOT INDIC. TITER VAGINAL PATHOGENS DNA [id number] 00:00:00* Test Item Value Reference Range Interpretation Comme nts SUZE SPECIES (test code = 72860) POSITIVE G. VAGINALIS (test code = 34955) NEGATIVE T. VAGINALIS (test code = 87049) NEGATIVE VAGINAL PATHOGENS DNA [id number] 00:00:00* Test Item Value Reference Range Interpretation Comme nts SUZE SPECIES (test code = 56939) POSITIVE G. VAGINALIS (test code = 39496) NEGATIVE T. VAGINALIS (test code = 61968) NEGATIVE ACUTE HEPATITIS [id number] 00:00:00* Test Item Value Reference Range Interpretation Comme nts HEPATITIS A IgM (test code = 94490) NON-REACTIVE HEPATITIS B CORE IgM (test c ode = 4644) NON-REACTIVE HEPATITIS B SURF AG (test co de = 2739) NON-REACTIVE HEPATITIS C ANTIBODY (test c ode = 4675) NON-REACTIVE HCV INDEX (test code = 76190) 0.08 INTERPRETATION HEPATITIS A: (test code = 2552) (NOTE) INTERPRETATION HEPATITIS B: (test code = 68655) (NOTE) INTERPRETATION HEPATITIS C: (test code = 48814) (NOTE) ACUTE HEPATITIS [id number] 00:00:00* Test Item Value Reference Range Interpretation Comme nts HEPATITIS A IgM (test code = 32099) NON-REACTIVE HEPATITIS B CORE IgM (test c ode = 4644) NON-REACTIVE HEPATITIS B SURF AG (test co de = 2739) NON-REACTIVE HEPATITIS C ANTIBODY (test c ode = 4675) NON-REACTIVE HCV INDEX (test code = 94284) 0.08 INTERPRETATION HEPATITIS A: (test code = 2552) (NOTE) INTERPRETATION HEPATITIS B: (test code = 22490) (NOTE) INTERPRETATION HEPATITIS C: (test code = 49682) (NOTE) HIV AB/AG COMBO RFLX [id number] 00:00:00* Test Item Value Reference Range Interpretation Comme nts HIV 1/2 4TH GEN, RFLX CONF ( test code = 3514) NON-REACTIVE HIV AB/AG COMBO RFLX [id number] 00:00:00* Test Item Value Reference Range Interpretation Comme nts HIV 1/2 4TH GEN, RFLX CONF ( test code = 3514) NON-REACTIVE [id number] 00:00:00* Test Item Value Reference Range Interpretation Comme nts RPR RESULT (test code = 3501) NON-REACTIVE RPR TITER (test code = 3500) NOT INDIC. TITER [id number] 00:00:00* Test Item Value Reference Range Interpretation Comme nts RPR RESULT (test code = 3501) NON-REACTIVE RPR TITER (test code = 3500) NOT INDIC. TITER [id number] 00:00:00* Test Item Value Reference Range Interpretation Comme nts RPR RESULT (test code = 3501) NON-REACTIVE RPR TITER (test code = 3500) NOT INDIC. TITER VAGINAL PATHOGENS DNA [id number] 00:00:00* Test Item Value Reference Range Interpretation Comme nts SUZE SPECIES (test code = 79150) POSITIVE G. VAGINALIS (test code = 47448) NEGATIVE T. VAGINALIS (test code = 48699) NEGATIVE VAGINAL PATHOGENS DNA [id number] 00:00:00* Test Item Value Reference Range Interpretation Comme nts SUZE SPECIES (test code = 33158) POSITIVE G. VAGINALIS (test code = 99283) NEGATIVE T. VAGINALIS (test code = 38379) NEGATIVE ACUTE HEPATITIS [id number] 00:00:00* Test Item Value Reference Range Interpretation Comme nts HEPATITIS A IgM (test code = 45966) NON-REACTIVE HEPATITIS B CORE IgM (test c ode = 4644) NON-REACTIVE HEPATITIS B SURF AG (test co de = 2739) NON-REACTIVE HEPATITIS C ANTIBODY (test c ode = 4675) NON-REACTIVE HCV INDEX (test code = 04009) 0.08 INTERPRETATION HEPATITIS A: (test code = 2552) (NOTE) INTERPRETATION HEPATITIS B: (test code = 76922) (NOTE) INTERPRETATION HEPATITIS C: (test code = 77514) (NOTE) ACUTE HEPATITIS [id number] 00:00:00* Test Item Value Reference Range Interpretation Comme nts HEPATITIS A IgM (test code = 82126) NON-REACTIVE HEPATITIS B CORE IgM (test c ode = 4644) NON-REACTIVE HEPATITIS B SURF AG (test co de = 2739) NON-REACTIVE HEPATITIS C ANTIBODY (test c ode = 4675) NON-REACTIVE HCV INDEX (test code = 85228) 0.08 INTERPRETATION HEPATITIS A: (test code = 2552) (NOTE) INTERPRETATION HEPATITIS B: (test code = 71821) (NOTE) INTERPRETATION HEPATITIS C: (test code = 27307) (NOTE) HIV AB/AG COMBO RFLX [id number] 00:00:00* Test Item Value Reference Range Interpretation Comme nts HIV 1/2 4TH GEN, RFLX CONF ( test code = 3514) NON-REACTIVE HIV AB/AG COMBO RFLX [id number] 00:00:00* Test Item Value Reference Range Interpretation Comme nts HIV 1/2 4TH GEN, RFLX CONF ( test code = 3514) NON-REACTIVE [id number] 00:00:00* Test Item Value Reference Range Interpretation Comme nts RPR RESULT (test code = 3501) NON-REACTIVE RPR TITER (test code = 3500) NOT INDIC. TITER [id number] 00:00:00* Test Item Value Reference Range Interpretation Comme nts RPR RESULT (test code = 3501) NON-REACTIVE RPR TITER (test code = 3500) NOT INDIC. TITER [id number] 00:00:00* Test Item Value Reference Range Interpretation Comme nts RPR RESULT (test code = 3501) NON-REACTIVE RPR TITER (test code = 3500) NOT INDIC. TITER CHLAMYDIA, AMPLIFIED, [id number] 00:00:00* Test Item Value Reference Range Interpretation Comme nts CHLAMYDIA, TMA (test code = 68161) NEGATIVE CHLAMYDIA, AMPLIFIED, [id number] 00:00:00* Test Item Value Reference Range Interpretation Comme nts CHLAMYDIA, TMA (test code = 86424) NEGATIVE GC, AMPLIFIED, [id number] 00:00:00* Test Item Value Reference Range Interpretation Comme nts GONORRHEA, TMA (test code = 96230) NEGATIVE GC, AMPLIFIED, [id number] 00:00:00* Test Item Value Reference Range Interpretation Comme nts GONORRHEA, TMA (test code = 37153) NEGATIVE CHLAMYDIA, AMPLIFIED, [id number] 00:00:00* Test Item Value Reference Range Interpretation Comme nts CHLAMYDIA, TMA (test code = 12808) NEGATIVE CHLAMYDIA, AMPLIFIED, [id number] 00:00:00* Test Item Value Reference Range Interpretation Comme nts CHLAMYDIA, TMA (test code = 31240) NEGATIVE GC, AMPLIFIED, [id number] 00:00:00* Test Item Value Reference Range Interpretation Comme nts GONORRHEA, TMA (test code = 77807) NEGATIVE GC, AMPLIFIED, [id number] 00:00:00* Test Item Value Reference Range Interpretation Comme nts GONORRHEA, TMA (test code = 72442) NEGATIVE CHLAMYDIA, AMPLIFIED, [id number] 00:00:00* Test Item Value Reference Range Interpretation Comme nts CHLAMYDIA, TMA (test code = 33031) NEGATIVE CHLAMYDIA, AMPLIFIED, [id number] 00:00:00* Test Item Value Reference Range Interpretation Comme nts CHLAMYDIA, TMA (test code = 89453) NEGATIVE GC, AMPLIFIED, [id number] 00:00:00* Test Item Value Reference Range Interpretation Comme nts GONORRHEA, TMA (test code = 11407) NEGATIVE GC, AMPLIFIED, [id number] 00:00:00* Test Item Value Reference Range Interpretation Comme nts GONORRHEA, TMA (test code = 77349) NEGATIVE
[2023-11-15] MEDS ORDERED: ONDANSETRON 4 MG/2 ML VIAL ONE (19:42)
[2023-11-15] MEDS ORDERED: NA CHLORIDE 0.9% 1,000 ML ONE (19:42)
[2023-11-15 20:06] LABS: Absolute Monocytes 0.7 K/uL (0.1-1.3); Absolute Neutrophil 10.1 K/uL (1.8-8.0); Basophils % 0.1 % (0-1.3); Hematocrit 40.4 % (36.0-45.0); Hemoglobin 13.5 g/dL (12.0-15.0); Lymphocytes % 8.5 % (15.3-44.8); MCH 30.6 pg (27.0-35.0); MCHC 33.4 g/dL (32.0-36.0); MCV 91.8 fL (80-100); MPV 7.3 fL (7.6-11.3); Monocytes % 5.8 % (3.3-12.3); Neutrophils % 85.6 % (41.7-73.7); Platelets 429 thou/uL (152-406); Red Cell Distribution Width 13.2 % (12.1-15.2)
[2023-11-15 20:26] LABS: Specific Gravity 1.024 (1.005-1.030); Sqamous Epithelial <5 /HPF (None Seen); Urine Bacteria <20 /HPF (<20); Urine Bilirubin NEGATIVE (Negative); Urine Blood Negative (Negative); Urine Clarity Extremely Turbid (Clear); Urine Color Yellow (Yellow); Urine Crystals Unidentified Moderate /HPF (None Seen); Urine Culture Reflex Order NOT NEEDED; Urine Glucose NEGATIVE (Negative); Urine Ketones 1+ (Negative); Urine Microscopic Reflex YN ORDER UMIC; Urine Mucus 1+ /HPF (None Seen); Urine Nitrite NEGATIVE (Negative); Urine Protein TRACE (Negative); Urine Urobilinogen Normal (Normal)
[2023-11-15 20:31] LABS: Specific Gravity 1.024 (1.005-1.030)
[2023-11-15 21:16] LABS: ALT/SGPT 17 U/L (13-56); Albumin 3.9 g/dL (3.4-5.0); Alkaline Phosphatase 70 U/L (45-117); Anion Gap 8.6 mEq/L (5.0-15.0); BUN Blood Urea Nitrogen 11 mg/dL (7-18); Bicarbonate 27 mEq/L (21-32); Bilirubin Total 0.9 mg/dL (0.2-1.0); Globulin 3.9 g/dL (2.3-3.5); Glomerular Filtration Rate 126 ml/min (=/>90); Glucose Level 101 mg/dL (74-106); Lipase 23 U/L (13-75); Potassium 3.6 mEq/L (3.5-5.1); Protein, Total 7.8 g/dL (6.4-8.2); Sodium Level 140 mEq/L (136-145)
[2023-11-15 21:18] LABS: AST/SGOT < 10 U/L (15-37)
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
[2023-11-15 22:17] VITALS: TEMP 99.2
[2023-11-15 22:37] VITALS: BP 122/78; O2SAT 100
== END 2023-11-15 21:43 | disposition home or self-care (01) ==
LOC: ER 18:44
DX: K52.9 Noninfective gastroenteritis and colitis, unspecified (principal); Z72.0 Tobacco use
CPT/HCPCS: 85025; 81001; 36415; 81025; 83690; 80053; J2405; J7030

== ENCOUNTER 2024-08-30 22:47 | Inpatient (IN) | payer OTHER, SELFPAY ==
--- OUTSIDE RECORDS SUMMARY | 2024-08-30 22:55 | XMS REPORT | Continuity of Care Document ---
Author Name Unknown Address [address] [place] [address]. [address] [place] [address] [facility] Address [address] [facility] [address] [place] [address] Care Team Providers Care Project Account Manager Name Role Phone Nic Sy Primary Care Physician MARY GRACE Attending Clinician Unavailable Kalebu_Vianney Attending Clinician Unavailable MARY GRACE Admitting Clinician Unavailable Kalebu_Vianney Admitting Clinician Unavailable Medications Ordered Medication Name Filled Medication Name Start Date Stop Date Current Medication? Ordering Clinician Indication Dosage Frequency Signature (SIG) Comments Components Source cetirizine 10 mg tablet 06-20 00:00: 00 Yes 1mg Jordan Trotter Tamiflu 75 mg capsule 06-20 00:00: 00 Yes 1mg Jordan Trotter azithromyci n 500 mg tablet 2023-05 00:00: 00 Yes 2mg Jordan Trotter Macrobid 100 mg capsule 12-01 00:00: 00 Yes 1mg Jordan Trotter nitrofurant oin macrocrysta l 100 mg capsule 11-29 00:00: 00 Yes 1mg Jordan Trotter Bromfed DM 2 mg-30 mg-10 mg/5 mL oral syrup 11-29 00:00: 00 Yes 10mg/5 mL Jordan Trotter TAKE 1 TABLET DAILY. 07-05 00:00: 00 Yes 20 Jordan Trotter TAKE 1 TABLET EVERY 8 HOURS WITH FOOD NEEDED. 07-05 00:00: 00 09-14 00:00 :00 No 800 Jordan Trotter TAKE 1 TABLET EVERY 6 TO 8 HOURS NEEDED NAUSEA. 2024-0 2-20 00:00: 00 09-14 00:00 :00 No 25 Jordan Trotter TAKE 2 TABLETS ON DAY 1 THEN TAKE 1 TABLET A DAY FOR 4 DAYS. 2-20 00:00: 00 09-14 00:00 :00 No 250 Jordan Trotter TAKE 5 ML EVERY 4 TO 6 HOURS NEEDED. 07-05 00:00: 00 09-14 00:00 :00 No [id number] Jordan Trotter TAKE 1 TABLET TWICE DAILY UNTIL FINISHED. 2022-05 018 00:00: 00 09-14 00:00 :00 No 500 Jordan Luis Eduardo Trotter METHYLPREDN ISOLONE DOSE PACK 4 MG TBPK 11-01 00:00: 00 Yes Jordan Luis Eduardo Trotter TAKE DIRECTED. 11-01 00:00: 00 09-14 00:00 :00 No 4 Jordan Luis Eduardo Trotter 1 CAP EVERY 8 HOURS NEEDED FOR COUGH 11-01 00:00: 00 09-14 00:00 :00 No 200 Jordanradha Trotter TAKE ONE NOW AND REPEAT IN 3 DAYS 09-10 00:00: 00 09-14 00:00 :00 No 150 Jordan Trotter TAKE 1 TABLET TWICE DAILY UNTIL FINISHED. 09-10 00:00: 00 09-14 00:00 :00 No 500 Jordanradha Trotter TAKE 1 TABLET TWICE DAILY UNTIL FINISHED. 07-15 00:00: 00 09-14 00:00 :00 No 500 Jordanradha Trotter TAKE 1 CAPSULE TWICE DAILY. 07-15 00:00: 00 09-14 00:00 :00 No 100 Jordan Luis Eduardo Trotter DOXYCYCL HYC 100MG 2021-05 00:00: 00 Yes Jordan Luis Eduardo Jv TAKE 5 ML EVERY 4 TO 6 HOURS NEEDED. 2021-05 00:00: 00 09-14 00:00 :00 No Jordan Trotter Dose Unknown 2021-05 00:00: 00 09-14 00:00 :00 No Jordan Trotter TAKE 1 TABLET BY MOUTH ONCE DAILY 2022-1 2-15 00:00: 00 09-14 00:00 :00 No Jordan Trotter IBUPROFEN 400MG 2021-05 2-15 00:00: 00 09-14 00:00 :00 No Jordan F Jv Dose Unknown 2021-05 2-15 00:00: 00 09-14 00:00 :00 No Jordan F Jv Dose Unknown 2021-05 2-15 00:00: 00 09-14 00:00 :00 No Jordan Trotter SMZ/TMP DS TAB [id number] 8047-1 2- 00:00: 00 Yes Jordan Luis Eduardo Trotter Dose Unknown 2021-05 2- 00:00: 00 Yes Jordan F Jv Dose Unknown 2021-05 2- 00:00: 00 Yes Jordan Trotter TAKE ONE TABLET EVERY 6 HOURS FOR 5 DAYS 2021-05 2-13 00:00: 00 09-14 00:00 :00 No Jordan Trotter 1-2 SPRAYS EVERY 2 HOURS NEEDED FOR SORE THROAT 2021-05 2- 00:00: 00 09-14 00:00 :00 No Jordan Trotter TAKE 5 ML BY MOUTH EVERY 4 TO 6 HOURS NEEDED 2021-05 2- 00:00: 00 09-14 00:00 :00 No Jordan Trotter AMOX/K CLAV TAB [id number] 7856-1 2- 00:00: 00 09-14 00:00 :00 No Jordan Trotter Dose Unknown 2021-05 2- 00:00: 00 09-14 00:00 :00 No Jordan Trotter TAKE 1 TABLET DAILY. 2021-05 0-29 00:00: 00 09-14 00:00 :00 No Jordan Trotter CEPHALEXIN CAP 500MG 8-30 00:00: 00 Yes Jordan Trotter CEPHALEXIN CAP 500MG 8-30 00:00: 00 No 500 CEPHALEXIN 8-24 00:00: 00 09-14 00:00 :00 No 500 Jordan F Jv Dose Unknown 8-06 00:00: 00 Yes 200 Jordan F Jv Dose Unknown 8-06 00:00: 00 Yes Jordan F Jv &lt 2022-0 8-06 00:00: 00 No 500 Dose Unknown 2-0 8- 00:00: 00 No &lt 2022-0 8-06 00:00: 00 No 500 Dose Unknown 2-0 8- 00:00: 00 No CALCIPOTRIE N CRE 0.005% 2021-0 7- 00:00: 00 Yes Jordan Trotter &lt 2022-0 7- 00:00: 00 No &lt 2022-0 7- 00:00: 00 No &lt 2022-0 7 00:00: 00 Yes 500 Jordan Hoff Jv &lt 2022-0 7- 00:00: 00 No 500 &lt 2022-0 7 00:00: 00 No 500 MUPIROCIN OIN 2% 2021-0 12-08 00:00: 00 Yes Jordan Trotter Dose Unknown 2021-0 7- 00:00: 00 No Dose Unknown 2021-0 7 00:00: 00 No fluconazole 150 mg tablet 2-0 6- 00:00: 00 Yes 1mg Jordan Trotter &lt 2022-0 6- 00:00: 00 Yes Jordan Trotter &lt 2022-0 6- 00:00: 00 Yes Jordan Trotter fluconazole 150 mg tablet 2021-0 6- 00:00: 00 No 1mg &lt 2022-0 6-28 00:00: 00 No &lt 2022-0 6-28 00:00: 00 No fluconazole 150 mg tablet 2-0 6-28 00:00: 00 No 1mg &lt 2022-0 6-28 00:00: 00 No &lt 2022-0 6-28 00:00: 00 No &lt 2022-0 6- 00:00: 00 Yes Jordan Trotter &lt 2022-0 6- 00:00: 00 No &lt 2022-0 6- 00:00: 00 No Dovonex 0.005 % topical cream 2-0 6-20 00:00: 00 Yes 1% Jordan Trotter metronidazo le 500 mg tablet 2021-0 6- 00:00: 00 Yes 1mg Jordan Trotter ibuprofen 400 mg tablet 2022-0 6-20 00:00: 00 Yes 1mg Jordan Trotter &lt 2022-0 6-20 00:00: 00 Yes Jordan Trotter Dovonex 0.005 % topical cream 2-0 6-20 00:00: 00 No 1% metronidazo le 500 mg tablet 2-0 6-20 00:00: 00 No 1mg ibuprofen 400 mg tablet 2-0 6-20 00:00: 00 No 1mg &lt 2022-0 6-20 00:00: 00 No Dovonex 0.005 % topical cream 2-0 6-20 00:00: 00 No 1% metronidazo le 500 mg tablet 2021-0 6-20 00:00: 00 No 1mg ibuprofen 400 mg tablet 2021-0 6-20 00:00: 00 No 1mg &lt 2022-0 6-20 00:00: 00 No CALCIPOTRIE N CRE 0.005% 2021-0 - 00:00: 00 05- 00:00 :00 No 5 Jordan Trotter &lt 2022-0 6- 00:00: 00 Yes Jordan Trotter &lt 2022-0 6- 00:00: 00 No &lt 2022-0 6-13 00:00: 00 No mupirocin 2 % topical ointment 2021-0 4- 00:00: 00 Yes 1% Jordan Trotter Dose Unknown 2021-0 4- 00:00: 00 Yes Jordan Trotter mupirocin 2 % topical ointment 2021-0 4- 00:00: 00 No 1% Dose Unknown 2021-0 4-26 00:00: 00 No mupirocin 2 % topical ointment 2-0 4-26 00:00: 00 No 1% Dose Unknown 2-0 4-26 00:00: 00 No Dose Unknown 2-0 4-15 00:00: 00 Yes Jordan Trotter Dose Unknown 2021-0 4-15 00:00: 00 No Dose Unknown 2022-0 4-15 00:00: 00 No MUPIROCIN OIN 2% 2-0 4-07 00:00: 00 Yes 2 Jordan Trotter mupirocin 2 % topical ointment 2022-0 4-06 00:00: 00 Yes 1% Jordan Trotter sulfamethox azole 800 mg-trimetho prim 160 mg tablet 4- 00:00: 00 Yes 1mg Jordan Trotter mupirocin 2 % topical ointment 4- 00:00: 00 No 1% sulfamethox azole 800 mg-trimetho prim 160 mg tablet 4- 00:00: 00 No 1mg mupirocin 2 % topical ointment - 00:00: 00 No 1% sulfamethox azole 800 mg-trimetho prim 160 mg tablet 08-19 00:00: 00 No 1mg metronidazo le 500 mg tablet 4- 00:00: 00 Yes 1mg Jordan Trotter metronidazo le 500 mg tablet 4- 00:00: 00 No 1mg metronidazo le 500 mg tablet 4- 00:00: 00 No 1mg doxycycline hyclate 100 mg tablet 0 3- 00:00: 00 Yes 1mg Jordan Trotter doxycycline hyclate 100 mg tablet 0 3- 00:00: 00 No 1mg doxycycline hyclate 100 mg tablet 0 3- 00:00: 00 No 1mg Dose Unknown 2020-05 2- 00:00: 00 Yes Jordan Trotter Dose Unknown 2020-05 2- 00:00: 00 No Dose Unknown 2020-05 2- 00:00: 00 No doxycycline hyclate 100 mg tablet 2020-05 2- 00:00: 00 Yes 1mg Jordan Trotter doxycycline hyclate 100 mg tablet 2020-05 2- 00:00: 00 No 1mg doxycycline hyclate 100 mg tablet 2020-05 2- 00:00: 00 No 1mg Dose Unknown 2020-05 0-07 00:00: 00 Yes Jordan Trotter Dose Unknown 2020-05 0-07 00:00: 00 No Dose Unknown 2020-05 0-07 00:00: 00 No azithromyci n 500 mg tablet 8- 00:00: 00 Yes 2mg Jordan Trotter azithromyci n 500 mg tablet 8- 00:00: 00 No 2mg azithromyci n 500 mg tablet 8- 00:00: 00 No 2mg Dose Unknown 10-20 00:00: 00 Yes Jordan Trotter Dose Unknown 6 00:00: 00 No Dose Unknown 6 00:00: 00 No Vitamin D3 25 mcg (1,000 unit) capsule 6 00:00: 00 Yes 1800 unit-50 mg Jordan Trotter Vitamin D3 25 mcg (1,000 unit) capsule 10-18 00:00: 00 No 1(1,000 unit) Vitamin D3 25 mcg (1,000 unit) capsule 10-18 00:00: 00 No 1(1,000 unit) azithromyci n 500 mg tablet 10-08 00:00: 00 Yes 2mg Jordan Trotter azithromyci n 500 mg tablet 5 00:00: 00 No 2mg azithromyci n 500 mg tablet 10-08 00:00: 00 No 2mg Dose Unknown 4-15 00:00: 00 Yes Jordan Trotter Dose Unknown 4-15 00:00: 00 No Dose Unknown 4-15 00:00: 00 No Flagyl 500 mg tablet 2- 00:00: 00 Yes 1mg Jordan Trotter Diflucan 150 mg tablet 2-11 00:00: 00 Yes 1mg Jordan Trotter Flagyl 500 mg tablet 2- 00:00: 00 No 1mg Diflucan 150 mg tablet 2- 00:00: 00 No 1mg Flagyl 500 mg tablet 2-11 00:00: 00 No 1mg Diflucan 150 mg tablet 2- 00:00: 00 No 1mg metronidazo le 500 mg tablet 2019-05 2- 00:00: 00 Yes 1mg Jordan Trotter metronidazo le 500 mg tablet 2019-05 2- 00:00: 00 No 1mg metronidazo le 500 mg tablet 2020-1 2-11 00:00: 00 No 1mg clindamycin 1 % topical gel 0 923 00:00: 00 Yes 1% Jordan Trotter clindamycin 1 % topical gel 0 02-05 00:00: 00 No 1% clindamycin 1 % topical gel 0 02-05 00:00: 00 No 1% clindamycin 1 % lotion 0 919 00:00: 00 Yes 1% Jordan Trotter clindamycin 1 % lotion 02-01 00:00: 00 No 1% clindamycin 1 % lotion 02-01 00:00: 00 No 1% mupirocin 2 % topical ointment 0 24 00:00: 00 Yes 1% Jordan Trotter prednisone 20 mg tablet 24 00:00: 00 Yes 1mg Jordan Trotter doxycycline monohydrate 100 mg capsule 11-06 00:00: 00 Yes 1mg Jordan Trotter mupirocin 2 % topical ointment 11-06 00:00: 00 No 1% prednisone 20 mg tablet 11-06 00:00: 00 No 1mg doxycycline monohydrate 100 mg capsule 11-06 00:00: 00 No 1mg mupirocin 2 % topical ointment 11-06 00:00: 00 No 1% prednisone 20 mg tablet 11-06 00:00: 00 No 1mg doxycycline monohydrate 100 mg capsule 11-06 00:00: 00 No 1mg Dose Unknown 10-31 00:00: 00 Yes Jordan Trotter Dose Unknown 10-31 00:00: 00 No Dose Unknown 0 18 00:00: 00 No Xulane 150 mcg-35 mcg/24 hr transdermal patch 1-06 00:00: 00 Yes 1mcg/24 hr Jordan Trotter Xulane 150 mcg-35 mcg/24 hr transdermal patch -06 00:00: 00 No 1mcg/24 hr Xulane 150 mcg-35 mcg/24 hr transdermal patch 1-06 00:00: 00 No 1mcg/24 hr Xulane 150 mcg-35 mcg/24 hr transdermal patch 2018-05 00:00: 00 Yes 1mcg/24 hr Jordan Trotter citalopram 10 mg tablet 2018-05 00:00: 00 Yes 1mg Jordan Trotter Xulane 150 mcg-35 mcg/24 hr transdermal patch 2018-05 00:00: 00 No 1mcg/24 hr citalopram 10 mg tablet 2018-05 00:00: 00 No 1mg Xulane 150 mcg-35 mcg/24 hr transdermal patch 2018-05 00:00: 00 No 1mcg/24 hr citalopram 10 mg tablet 2018-05 00:00: 00 No 1mg Diflucan 150 mg tablet 08-23 00:00: 00 Yes 1mg Jordan Trotter Diflucan 150 mg tablet 08-23 00:00: 00 No 1mg Diflucan 150 mg tablet 08-23 00:00: 00 No 1mg amoxicillin 875 mg tablet 07-08 00:00: 00 Yes 1mg Jordan Trotter amoxicillin 875 mg tablet 07-08 00:00: 00 No 1mg amoxicillin 875 mg tablet 07-08 00:00: 00 No 1mg permethrin 5 % topical cream 01-19 00:00: 00 Yes 1% Jordan Trotter permethrin 5 % topical cream 01-19 00:00: 00 No 1% permethrin 5 % topical cream 01-19 00:00: 00 No 1% permethrin 5 % topical cream 09-29 00:00: 00 Yes 1% Jordan Trotter permethrin 5 % topical cream 09-29 00:00: 00 No 1% permethrin 5 % topical cream 09-29 00:00: 00 No 1% Immunizations Ordered Immunization Name Filled Immunization Name Date Status Comments Source Hep B, adult Hep B, adult 2023-01-19 00:00:00 Completed Jordan Trotter Influenza, seasonal, inj Influenza, seasonal, inj 2019-03-23 00:00:00 Completed Jordan Trotter Influenza, seasonal, inj 2019-03-23 00:00:00 Completed Influenza, seasonal, inj 2019-03-23 00:00:00 Completed Influenza, seasonal, inj 2019-03-23 00:00:00 Completed HPV, quadrivalent HPV, quadrivalent 2014-11-18 00:00:00 Completed Jordan Trotter HPV, quadrivalent 2014-11-18 00:00:00 Completed HPV, quadrivalent 2014-11-18 00:00:00 Completed HPV, quadrivalent 2014-11-18 00:00:00 Completed HPV, quadrivalent HPV, quadrivalent 2013-01-03 00:00:00 Completed Jordan Trotter meningococcal MCV4P meningococcal MCV4P 00:00:00 Completed Jordan Trotter Tdap Tdap 2013-01-03 00:00:00 Completed Jordan Trotter HPV, quadrivalent 2013-01-03 00:00:00 Completed meningococcal MCV4P 2013-01-03 00:00:00 Completed Tdap 2013-01-03 00:00:00 Completed HPV, quadrivalent 2013-01-03 00:00:00 Completed meningococcal MCV4P 2013-01-03 00:00:00 Completed Tdap 2013-01-03 00:00:00 Completed HPV, quadrivalent 2013-01-03 00:00:00 Completed meningococcal MCV4P 2013-01-03 00:00:00 Completed Tdap 2013-01-03 00:00:00 Completed Hep A, ped/adol, 2 dose Hep A, ped/adol, 2 dose 2010-12-14 00:00:00 Completed Jordan Trotter varicella varicella 2010-12-14 00:00:00 Completed Jordan Luis Eduardo Jv Hep A, ped/adol, 2 dose 2010-12-14 00:00:00 Completed varicella 2010-12-14 00:00:00 Completed Hep A, ped/adol, 2 dose 2010-12-14 00:00:00 Completed varicella 2010-12-14 00:00:00 Completed Hep A, ped/adol, 2 dose 2010-12-14 00:00:00 Completed varicella 2010-12-14 00:00:00 Completed Hep A, ped/adol, 2 dose Hep A, ped/adol, 2 dose 2006-09-22 00:00:00 Completed Jordan Luis Eduardo Jv Hep A, ped/adol, 2 dose 2006-09-22 00:00:00 Completed Hep A, ped/adol, 2 dose 2006-09-22 00:00:00 Completed Hep A, ped/adol, 2 dose 2006-09-22 00:00:00 Completed Pneumococcal conjugate P Pneumococcal conjugate P 2006-02-15 00:00:00 Completed Jordan Trotter varicella varicella 2006-02-15 00:00:00 Completed Jordan Trotter Pneumococcal conjugate P 2006-02-15 00:00:00 Completed varicella 2006-02-15 00:00:00 Completed Pneumococcal conjugate P 2006-02-15 00:00:00 Completed varicella 2006-02-15 00:00:00 Completed Pneumococcal conjugate P 2006-02-15 00:00:00 Completed varicella 2006-02-15 00:00:00 Completed DTaP DTaP 2006-01-03 00:00:00 Completed Jordan Trotter Hep A, ped/adol, 2 dose Hep A, ped/adol, 2 dose 2006-01-03 00:00:00 Completed Jordan Trotter MMR MMR 2006-01-03 00:00:00 Completed Jordan Trotter IPV IPV 2006-01-03 00:00:00 Completed Jordan Trotter DTaP 2006-01-03 00:00:00 Completed Hep A, ped/adol, 2 dose 2006-01-03 00:00:00 Completed MMR 2006-01-03 00:00:00 Completed IPV 2006-01-03 00:00:00 Completed DTaP 2006-01-03 00:00:00 Completed Hep A, ped/adol, 2 dose 2006-01-03 00:00:00 Completed MMR 2006-01-03 00:00:00 Completed IPV 2006-01-03 00:00:00 Completed DTaP 2006-01-03 00:00:00 Completed Hep A, ped/adol, 2 dose 2006-01-03 00:00:00 Completed MMR 2006-01-03 00:00:00 Completed IPV 2006-01-03 00:00:00 Completed DTaP 2002-01-02 00:00:00 Completed MMR 2002-01-02 00:00:00 Completed Pneumococcal conjugate P 2002-01-02 00:00:00 Completed IPV 2002-01-02 00:00:00 Completed DTaP 2002-01-02 00:00:00 Completed MMR 2002-01-02 00:00:00 Completed Pneumococcal conjugate P 2002-01-02 00:00:00 Completed IPV 2002-01-02 00:00:00 Completed DTaP 2002-01-02 00:00:00 Completed MMR 2002-01-02 00:00:00 Completed Pneumococcal conjugate P 2002-01-02 00:00:00 Completed IPV 2002-01-02 00:00:00 Completed DTaP DTaP 2002-01-02 00:00:00 Completed Jordan Trotter MMR MMR 2002-01-02 00:00:00 Completed Jordan Trotter Pneumococcal conjugate P Pneumococcal conjugate P 2002-01-02 00:00:00 Completed Jordan Trotter IPV IPV 2002-01-02 00:00:00 Completed Jordan Trotter Pneumococcal conjugate P 2001-08-02 00:00:00 Completed Pneumococcal conjugate P 2001-08-02 00:00:00 Completed Pneumococcal conjugate P 2001-08-02 00:00:00 Completed Pneumococcal conjugate P Pneumococcal conjugate P 2001-08-02 00:00:00 Completed Jordan Trotter DTaP 2001-04-28 00:00:00 Completed Hep B, adolescent or ped 2001-04-28 00:00:00 Completed Hib (PRP-OMP) 2001-04-28 00:00:00 Completed DTaP 2001-04-28 00:00:00 Completed Hep B, adolescent or ped 2001-04-28 00:00:00 Completed Hib (PRP-OMP) 2001-04-28 00:00:00 Completed DTaP 2001-04-28 00:00:00 Completed Hep B, adolescent or ped 2001-04-28 00:00:00 Completed Hib (PRP-OMP) 2001-04-28 00:00:00 Completed DTaP DTaP 2001-04-28 00:00:00 Completed Jordan Trotter Hep B, adolescent or ped Hep B, adolescent or ped 2001-04-28 00:00:00 Completed Jordan Trotter Hib (PRP-OMP) Hib (PRP-OMP) 2001-04-28 00:00:00 Completed Jordan Trotter DTaP 2001-03-01 00:00:00 Completed Hib (PRP-OMP) 2001-03-01 00:00:00 Completed Pneumococcal conjugate P 2001-03-01 00:00:00 Completed IPV 2001-03-01 00:00:00 Completed DTaP 2001-03-01 00:00:00 Completed Hib (PRP-OMP) 2001-03-01 00:00:00 Completed Pneumococcal conjugate P 2001-03-01 00:00:00 Completed IPV 2001-03-01 00:00:00 Completed DTaP 2001-03-01 00:00:00 Completed Hib (PRP-OMP) 2001-03-01 00:00:00 Completed Pneumococcal conjugate P 2001-03-01 00:00:00 Completed IPV 2001-03-01 00:00:00 Completed DTaP DTaP 2001-03-01 00:00:00 Completed Jordan Trotter Hib (PRP-OMP) Hib (PRP-OMP) 2001-03-01 00:00:00 Completed Jordan Trotter Pneumococcal conjugate P Pneumococcal conjugate P 2001-03-01 00:00:00 Completed Jordan Trotter IPV IPV 2001-03-01 00:00:00 Completed Jordan Trotter DTaP 2000 00:00:00 Completed Hib (PRP-OMP) 2000 00:00:00 Completed Pneumococcal conjugate P 2000 00:00:00 Completed IPV 2000 00:00:00 Completed DTaP 2000 00:00:00 Completed Hib (PRP-OMP) 2000 00:00:00 Completed Pneumococcal conjugate P 2000 00:00:00 Completed IPV 2000 00:00:00 Completed DTaP 2000 00:00:00 Completed Hib (PRP-OMP) 2000 00:00:00 Completed Pneumococcal conjugate P 2000 00:00:00 Completed IPV 2000 00:00:00 Completed DTaP DTaP 2000 00:00:00 Completed Jordan Trotter Hib (PRP-OMP) Hib (PRP-OMP) 2000 00:00:00 Completed Jordan Trotter Pneumococcal conjugate P Pneumococcal conjugate P 2000 00:00:00 Completed Jordan Trotter IPV IPV 2000 00:00:00 Completed Jordan Trotter Hep B, adolescent or ped 2000 00:00:00 Completed Hep B, adolescent or ped 2000 00:00:00 Completed Hep B, adolescent or ped 2000 00:00:00 Completed Hep B, adolescent or ped Hep B, adolescent or ped 2000 00:00:00 Completed Jordan Trotter Hep B, adolescent or ped 2000 00:00:00 Completed Hep B, adolescent or ped 2000 00:00:00 Completed Hep B, adolescent or ped 2000 00:00:00 Completed Hep B, adolescent or ped Hep B, adolescent or ped 2000 00:00:00 Completed Jordan F Jv Vital Signs Vital Name Observation Time Observation Value Comments S ryan BP Systolic 2024-06-20 15:42:00 125 mm[Hg] Step hen F Jv BP Diastolic 2024-06-20 15:42:00 87 mm[Hg] Raúl phen F Jv Weight Measured 2024-06-20 15:42:00 133.00 pounds Jordan F Jv Height Measured 2024-06-20 15:42:00 62.00 inches Jordan F Jv Body Temperature 2024-06-20 15:42:00 97.80 degrees Jordan F Jv Heart Rate 2024-06-20 15:42:00 88.00 /min Liz en F Jv Respiratory Rate 2024-06-20 15:42:00 18.00 /min Jordan F Jv BP Systolic 2024-03-06 16:14:00 113 mm[Hg] Step hen F Jv BP Diastolic 2024-03-06 16:14:00 77 mm[Hg] Raúl phen F Jv Weight Measured 2024-03-06 16:14:00 134.00 pounds Jordan F Jv Height Measured 2024-03-06 16:14:00 62.00 inches Jordan F Jv Body Temperature 2024-03-06 16:14:00 98.20 degrees Jordan F Jv Heart Rate 2024-03-06 16:14:00 84.00 /min Liz en F Jv Respiratory Rate 2024-03-06 16:14:00 18.00 /min Jordan F Jv BP Systolic 2023-11-30 16:00:00 138 mm[Hg] Step hen F Jv BP Diastolic 2023-11-30 16:00:00 94 mm[Hg] Raúl phen F Jv Weight Measured 2023-11-30 16:00:00 138.60 pounds Jordan F Jv Height Measured 2023-11-30 16:00:00 62.00 inches Jordan F Jv Body Temperature 2023-11-30 16:00:00 97.70 degrees Jordan F Jv Heart Rate 2023-11-30 16:00:00 82.00 /min Liz en F Jv Respiratory Rate 2023-11-30 16:00:00 19.00 /min Jordan F Jv BP Systolic 2023-06-15 16:37:00 146 mm[Hg] Step hen F Jv BP Diastolic 2023-06-15 16:37:00 69 mm[Hg] Raúl phen F Jv Weight Measured 2023-06-15 16:37:00 150.80 pounds Jordan F Jv Height Measured 2023-06-15 16:37:00 62.00 inches Jordan F Jv Body Temperature 2023-06-15 16:37:00 98.10 degrees Jordan F Jv Heart Rate 2023-06-15 16:37:00 89.00 /min Liz en F Vj Respiratory Rate 2023-06-15 16:37:00 19.00 /min Jordan F Jv BP Systolic 2023-06-08 16:07:00 123 mm[Hg] Step hen F Jv BP Diastolic 2023-06-08 16:07:00 82 mm[Hg] Raúl phen F Jv Weight Measured 2023-06-08 16:07:00 147.60 pounds Jordan F Jv Height Measured 2023-06-08 16:07:00 62.00 inches Jordan F Jv Body Temperature 2023-06-08 16:07:00 98.20 degrees Jordan F Jv Heart Rate 2023-06-08 16:07:00 72.00 /min Liz en F Jv Respiratory Rate 2023-06-08 16:07:00 19.00 /min Jordan F Jv BP Systolic 2023-03-02 16:04:00 114 mm[Hg] Step hen F Jv BP Diastolic 2023-03-02 16:04:00 72 mm[Hg] Raúl phen F Jv Weight Measured 2023-03-02 16:04:00 146.20 pounds Jordan F Jv Height Measured 2023-03-02 16:04:00 62.00 inches Jordan F Jv Body Temperature 2023-03-02 16:04:00 98.30 degrees Jordan F Jv Heart Rate 2023-03-02 16:04:00 77.00 /min Liz en F Jv Respiratory Rate 2023-03-02 16:04:00 Jordan F Jv BP Systolic 2023-01-19 14:39:00 125 mm[Hg] Step hen F Jv BP Diastolic 2023-01-19 14:39:00 77 mm[Hg] Raúl phen F Jv Weight Measured 2023-01-19 14:39:00 146.20 pounds Jordan F Jv Height Measured 2023-01-19 14:39:00 62.00 inches Jordan F Jv Body Temperature 2023-01-19 14:39:00 98.00 degrees Jordan F Jv Heart Rate 2023-01-19 14:39:00 72.00 /min Liz en F Jv Respiratory Rate 2023-01-19 14:39:00 Jordan F Jv BP Systolic 2022-12-27 14:06:00 120 mm[Hg] Step hen F Jv BP Diastolic 2022-12-27 14:06:00 66 mm[Hg] Raúl phen F Jv Weight Measured 2022-12-27 14:06:00 146.80 pounds Jordan F Jv Height Measured 2022-12-27 14:06:00 62.00 inches Jordan F Jv Body Temperature 2022-12-27 14:06:00 99.00 degrees Jordan F Jv Heart Rate 2022-12-27 14:06:00 111.00 /min Step hen F Jv Respiratory Rate 2022-12-27 14:06:00 Jordan F Jv BP Systolic 2022-11-01 15:15:00 113 mm[Hg] Step hen F Jv BP Diastolic 2022-11-01 15:15:00 63 mm[Hg] Raúl phen F Jv Weight Measured 2022-11-01 15:15:00 146.00 pounds Jordan F Jv Height Measured 2022-11-01 15:15:00 62.00 inches Jordan F Jv Body Temperature 2022-11-01 15:15:00 98.30 degrees Jordan F Jv Heart Rate 2022-11-01 15:15:00 68.00 /min Liz en F Jv Respiratory Rate 2022-11-01 15:15:00 18.00 /min Jordan F Jv BP Systolic 2022-09-07 17:16:00 128 mm[Hg] Step hen F Jv BP Diastolic 2022-09-07 17:16:00 71 mm[Hg] Raúl phen F Jv Weight Measured 2022-09-07 17:16:00 147.00 pounds Jordan F Jv Height Measured 2022-09-07 17:16:00 62.00 inches Jordan F Jv Body Temperature 2022-09-07 17:16:00 98.40 degrees Jordan F Jv Heart Rate 2022-09-07 17:16:00 94.00 /min Liz en F Jv Respiratory Rate 2022-09-07 17:16:00 17.00 /min Jordan F Jv BP Systolic 2022-07-17 13:05:00 Step hen F Jv BP Diastolic 2022-07-17 13:05:00 Raúl phen F Jv Weight Measured 2022-07-17 13:05:00 146.40 pounds Jordan F Jv Height Measured 2022-07-17 13:05:00 62.00 inches Jordan F Jv Body Temperature 2022-07-17 13:05:00 Jordan F Jv Heart Rate 2022-07-17 13:05:00 Liz en F Jv Respiratory Rate 2022-07-17 13:05:00 Jordan F Jv BP Systolic 2022-07-15 15:35:00 138 mm[Hg] Step hen F Jv BP Diastolic 2022-07-15 15:35:00 85 mm[Hg] Raúl phen F Jv Weight Measured 2022-07-15 15:35:00 146.40 pounds Jordan F Jv Height Measured 2022-07-15 15:35:00 62.00 inches Jordan F Jv Body Temperature 2022-07-15 15:35:00 98.80 degrees Jordan F Jv Heart Rate 2022-07-15 15:35:00 72.00 /min Liz en F Jv Respiratory Rate 2022-07-15 15:35:00 18.00 /min Jordan F Jv BP Systolic 2022-01-19 15:06:00 119 mm[Hg] BP [...] Goal Plan of Care Note [code = 56773-7] Goal Plan of Care Note [code = 84042-0] Goal Plan of Care Note [code = 56176-2] Goal Plan of Care Note [code = 81713-7] Goal Plan of Care Note [code = 96480-3] Goal Plan of Care Note [code = 14084-3] Goal Plan of Care Note [code = 83351-4] Goal Plan of Care Note [code = 10389-0] Goal Plan of Care Note [code = 75933-5] Goal Plan of Care Note [code = 47812-4] Goal Plan of Care Note [code = 36007-5] Goal Plan of Care Note [code = 06016-7] Goal Plan of Care Note [code = 18571-2] Goal Plan of Care Note [code = 89468-0] Goal Plan of Care Note [code = 08424-8] Goal Plan of Care Note [code = 48686-8] Goal Plan of Care Note [code = 80784-0] Goal Plan of Care Note [code = 71077-8] Goal Plan of Care Note [code = 91853-2] Goal Plan of Care Note [code = 16306-8] Goal Plan of Care Note [code = 45039-3] Goal Plan of Care Note [code = 93425-7] Goal Plan of Care Note [code = 20383-7] Goal Plan of Care Note [code = 54285-8] Goal Plan of Care Note [code = 55893-5] Goal Plan of Care Note [code = 61509-3] Goal Plan of Care Note [code = 25771-5] Goal Plan of Care Note [code = 24659-5] Goal Plan of Care Note [code = 85922-4] Goal Plan of Care Note [code = 86510-5] Goal Plan of Care Note [code = 01203-0] Goal Plan of Care Note [code = 90368-0] Goal Plan of Care Note [code = 11311-9] Goal Plan of Care Note [code = 46665-7] Goal Plan of Care Note [code = 82518-8] Goal Plan of Care Note [code = 28958-0] Goal Plan of Care Note [code = 33307-7] Goal Plan of Care Note [code = 38432-6] Goal Plan of Care Note [code = 45069-5] Goal Plan of Care Note [code = 49953-2] Goal Plan of Care Note [code = 56228-0] Goal Plan of Care Note [code = 34271-0] Goal Plan of Care Note [code = 94203-9] Goal Plan of Care Note [code = 76625-8] Goal Plan of Care Note [code = 50533-0] Goal Plan of Care Note [code = 28375-6] Goal Plan of Care Note [code = 57049-2] Goal Plan of Care Note [code = 86912-1] Goal Plan of Care Note [code = 68092-1] Goal Plan of Care Note [code = 58736-7] Goal Plan of Care Note [code = 08899-2] Goal Plan of Care Note [code = 73492-2] Goal Plan of Care Note [code = 02853-8] Goal Plan of Care Note [code = 65819-9] Goal Plan of Care Note [code = 33381-6] Goal Plan of Care Note [code = 03043-2] Goal Plan of Care Note [code = 50647-6] Goal Plan of Care Note [code = 24009-9] Goal Plan of Care Note [code = 20917-3] Goal Plan of Care Note [code = 89131-5] Goal Plan of Care Note [code = 03180-9] Goal Plan of Care Note [code = 58956-3] Goal Plan of Care Note [code = 26301-9] Goal Plan of Care Note [code = 85822-1] Goal Plan of Care Note [code = 34013-9] Goal Plan of Care Note [code = 27748-9] Goal Plan of Care Note [code = 62504-1] Goal Plan of Care Note [code = 98712-0] Goal Plan of Care Note [code = 88191-7] Goal Plan of Care Note [code = 91460-8] Goal Plan of Care Note [code = 84060-3] Goal Plan of Care Note [code = 09088-7] Goal Plan of Care Note [code = 05432-9] Goal Plan of Care Note [code = 73615-9] Goal Plan of Care Note [code = 89642-1] Goal Plan of Care Note [code = 36404-8] Goal Plan of Care Note [code = 47877-4] Goal Plan of Care Note [code = 64800-1] Goal Plan of Care Note [code = 56286-1] Goal Plan of Care Note [code = 30986-1] Goal Plan of Care Note [code = 97459-1] Goal Plan of Care Note [code = 66587-5] Goal Plan of Care Note [code = 08021-6] Goal Plan of Care Note [code = 05616-5] Goal Plan of Care Note [code = 89507-8] Goal Plan of Care Note [code = 72784-2] Goal Plan of Care Note [code = 61133-4] Goal Plan of Care Note [code = 10688-4] Goal Plan of Care Note [code = 50025-1] Goal Plan of Care Note [code = 46258-7] Goal Plan of Care Note [code = 82583-3] Goal Plan of Care Note [code = 23363-8] Goal Plan of Care Note [code = 45853-6] Goal Plan of Care Note [code = 35711-5] Goal Plan of Care Note [code = 27997-4] Goal Plan of Care Note [code = 68558-2] Goal Plan of Care Note [code = 12177-3] Goal Plan of Care Note [code = 77741-4] Goal Plan of Care Note [code = 93474-7] Goal Plan of Care Note [code = 41981-1] Goal Plan of Care Note [code = 46413-0] Goal Plan of Care Note [code = 42552-0] Goal Plan of Care Note [code = 52341-4] Goal Plan of Care Note [code = 47170-1] Goal Plan of Care Note [code = 15249-7] Goal Plan of Care Note [code = 52764-2] Goal Plan of Care Note [code = 17243-3] Goal Plan of Care Note [code = 29859-5] Goal Plan of Care Note [code = 20505-7] Goal Plan of Care Note [code = 64161-5] Goal Plan of Care Note [code = 37046-7] Goal Plan of Care Note [code = 83949-5] Goal Plan of Care Note [code = 12569-7] Goal Plan of Care Note [code = 70097-9] Goal Plan of Care Note [code = 14357-2] Goal Plan of Care Note [code = 74136-1] Goal Plan of Care Note [code = 46882-5] Goal Plan of Care Note [code = 15708-1] Goal Plan of Care Note [code = 35076-4] Goal Plan of Care Note [code = 95873-3] Goal Plan of Care Note [code = 27134-6] Goal Plan of Care Note [code = 38532-4] Goal Plan of Care Note [code = 28687-4] Encounters Start Date/Time End Date/Time Encounter Type Admission Type Attending [facility] Facility Care Department Encounter ID Source 2024-06-20 15:38:47 2024-06-20 15:38:47 Outpatient IMTIAZ KITCHEN [id number] Jordan Trotter 2024-06-20 00:00:00 2024-06-20 00:00:00 Outpatient Visit IMTIAZ [id number] Jordan Trotter 2024-03-06 16:04:58 2024-03-06 16:04:58 Outpatient SFA SFA [id number] Jordan Hoff [place] 2023-11-30 16:00:20 2023-11-30 16:00:20 Outpatient SFA SFA [id number] Jordan Hoff [place] 2023-11-30 00:00:00 2023-11-30 00:00:00 Outpatient Visit SFA [id number] Jordan Hoff [place] 2023-07-05 15:01:40 2023-07-05 15:01:40 Outpatient SFA SFA [id number] Jordan Hoff [place] 2023-06-15 16:32:53 2023-06-15 16:32:53 Outpatient SFA SFA [id number] Jordan Hoff [place] 2023-06-08 15:58:25 2023-06-08 15:58:25 Outpatient SFA SFA [id number] Jordan Hoff [place] 2023-03-02 16:07:13 2023-03-02 16:07:13 Outpatient SFA SFA [id number] Jordan Hoff [place] 2023-01-19 14:19:58 2023-01-19 14:19:58 Outpatient SFA SFA [id number] Jordan Hoff [place] 2022-12-27 13:59:53 2022-12-27 13:59:53 Outpatient SFA SFA [id number] Jordan Hoff [place] 2022-11-01 15:05:24 2022-11-01 15:05:24 Outpatient SFA SFA [id number] Jordan Hoff [place] 2022-09-07 17:06:19 2022-09-07 17:06:19 Outpatient SFA SFA [id number] Jordan Hoff [place] 2022-07-15 15:30:04 2022-07-15 15:30:04 Outpatient SFA SFA [id number] Jordan Hoff [place] 2022-03-13 13:05:30 2022-03-13 13:05:30 Outpatient SFA SFA [id number] Jordan Hoff [place] 2022-02-17 17:07:00 2022-02-17 17:07:00 Outpatient SFA SFA [id number] Jordan Hoff [place] 2022-02-16 00:00:00 2022-02-16 00:00:00 Outpatient Visit [id number] 2022-01-19 00:00:00 2022-01-19 00:00:00 Outpatient Visit [id number] 2022-01-06 00:00:00 2022-01-06 00:00:00 Outpatient Visit [id number] 2021-12-14 00:00:00 2021-12-14 00:00:00 Outpatient LISTER_MELI [facility] [id number] [facility] h Program 2019-09-13 03:56:00 2019-09-13 03:56:00 Outpatient Raju_P [facility] [id number] [facility] Results Test Description Test Time Test Comments Results Result Co mments Source VAGINAL PATHOGENS DNA [id number] 12:18:43* Test Item Value Reference Range Interpretation Comme nts SUZE SPECIES (test code = 72201) NEGATIVE NEGATIVE G. VAGINALIS (test code = 41844) POSITIVE NEGATIVE A T. VAGINALIS (test code = 96318) NEGATIVE NEGATIVE Note: The BD [facility] ir VPIII Microbial Identification Testis a DNA probe test intended for use in the detectionand identification of Suze species, Gardnerellavaginalis and Trichomonas vaginalis nucleic acid. HIV 1/2 4TH GEN, RFLX [id number] 04:29:11* Test Item Value Reference Range Interpretation Comme nts HIV 1/2 4TH GEN, RFLX CONF (test code = 3514) NON-REACTIVE NON-REACTIVE UNLESS OTHERWISE INDICATED, ALL TESTING PERFORMED AT [facility] [address] [place] [address] NETWORK ANALYST: IRIS GRAJEDA M.D. [place] NUMBER [id number] [facility] [place]. [id number] 03:15:26* Test Item Value Reference Range Interpretation Comme nts RPR RESULT (test code = 3501) NON-REACTIVE NON-REACTIVE RPR TITER (test code = 3500) NOT INDIC. TITER NOT INDIC. HIV 1/2 4TH GEN, RFLX [id number] 00:00:00* Test Item Value Reference Range Interpretation Comme nts HIV 1/2 4TH GEN, RFLX CONF ( test code = 3514) NON-REACTIVE Jordan Luis Eduardo AustinVAGINAL PATHOGENS DNA [id number] 00:00:00* Test Item Value Reference Range Interpretation Comme nts SUZE SPECIES (test code = 34047) NEGATIVE G. VAGINALIS (test code = 52505) POSITIVE T. VAGINALIS (test code = 97458) NEGATIVE Jordan Hoff AustinCT/NG, TMA, [id number] 00:00:00* Test Item Value Reference Range Interpretation Comme nts CHLAMYDIA, NAAT, URINE (test code = 67597) NEGATIVE GONORRHEA, NAAT, URINE (test code = 46618) NEGATIVE Jordan Hoff [id number] 00:00:00* Test Item Value Reference Range Interpretation Comme nts RPR RESULT (test code = 3501) NON-REACTIVE RPR TITER (test code = 3500) NOT INDIC. TITER Jordan Hoff AustinHIV 1/2 4TH GEN, RFLX [id number] 00:00:00* Test Item Value Reference Range Interpretation Comme nts HIV 1/2 4TH GEN, RFLX CONF ( test code = 3514) NON-REACTIVE Jordan Hoff AustinVAGINAL PATHOGENS DNA [id number] 00:00:00* Test Item Value Reference Range Interpretation Comme nts SUZE SPECIES (test code = 50637) NEGATIVE G. VAGINALIS (test code = 14530) POSITIVE T. VAGINALIS (test code = 39522) NEGATIVE Jordan Hoff AustinCT/NG, TMA, [id number] 00:00:00* Test Item Value Reference Range Interpretation Comme nts CHLAMYDIA, NAAT, URINE (test code = 57289) NEGATIVE GONORRHEA, NAAT, URINE (test code = 75075) NEGATIVE Jordan [id number] 00:00:00* Test Item Value Reference Range Interpretation Comme nts RPR RESULT (test code = 3501) NON-REACTIVE RPR TITER (test code = 3500) NOT INDIC. TITER Jordan [place], [id number] 15:13:35SPECIMEN NUMBER: [id number] CULTURE, URINE SPECIMEN NUMBER: [id number] SPECIMEN COMMENT: URINE SOURCE: URINE REPORT STATUS: FINAL FINAL REPORT: 12/29/2022 50-100,000 CFU/ML MIXED MICROBIAL POPULATION PRESENT, NO PREDOMINATING ORGANISMS;PROBABLE CONTAMINANTS.CULTURE, [id number] 00:00:00* Test Item Value Reference Range Interpretation Comme nts CULTURE, URINE (test code = 85438) SPECIMEN NUMBER: [id number] Jordan TrotterCULTURE, [id number] 00:00:00* Test Item Value Reference Range Interpretation Comme nts CULTURE, URINE (test code = 42888) SPECIMEN NUMBER: [id number] Jordan TrotterCHLAMYDIA, NAAT, [id number] 20:15:36* Test Item Value Reference Range Interpretation Comme nts CHLAMYDIA, NAAT, URINE (test code = 79235) NEGATIVE NEGATIVE Testing is perfo rmed with Allyssa MIGUEL ANGEL 6800/8800 systems usingreal-time polymerase chain reaction (PCR) method. A negative result does not exclude low level infection, specimensampling error, or collection error. GONORRHEA, NAAT, [id number] 20:15:36* Test Item Value Reference Range Interpretation Comme nts GONORRHEA, NAAT, URINE (test code = 05271) NEGATIVE NEGATIVE Testing is perfo rmed with Allyssa MIGUEL [employer]EL 6800/8800 systems usingreal-time polymerase chain reaction (PCR) method. A negative result does not exclude low level infection, specimensampling error, or collection error. VAGINAL PATHOGENS DNA [id number] 16:55:55* Test Item Value Reference Range Interpretation Comme nts SUZE SPECIES (test code = 32057) NEGATIVE NEGATIVE G. VAGINALIS (test code = 68894) NEGATIVE NEGATIVE T. VAGINALIS (test code = 78353) NEGATIVE NEGATIVE Note: The BD Aff irm VPIII Microbial Identification Testis a DNA probe test intended for use in the detectionand identification of Suze species, Gardnerellavaginalis and Trichomonas vaginalis nucleic acid. RPR REFLEX TO T. PALLIDUM - [id number] 04:11:47* Test Item Value Reference Range Interpretation Comme nts RPR (test code = 09368) NON-REACTIVE NON-REACTIVE RPR TITER (test code = 3500) NOT INDIC. TITER NOT INDIC. HIV 1/2 4TH GEN, RFLX [id number] 03:57:15* Test Item Value Reference Range Interpretation Comme nts HIV 1/2 4TH GEN, RFLX CONF ( test code = 3514) NON-REACTIVE NON-REACTIVE HEPATITIS PANEL, [id number] 03:57:15* Test Item Value Reference Range Interpretation [...] infection. INTERPRETATION HEPATITIS B: (test code = 75395) (NOTE) Hepatitis B sero logy shows no evidence of past exposure to orcurrent infection with hepatitis B virus. No evidence of hepatitis Bimmunization is identified. INTERPRETATION HEPATITIS C: (test code = 84798) (NOTE) Hepatitis C sero logy shows no evidence of exposure to hepatitisC virus at this time. It can take up to 12 months after exposure tothe hepatitis C virus for antibodies to become detectable in the blood in certain patients. HEPATITIS A [id number] 03:57:15* Test Item Value Reference Range Interpretation Comme nts HEPATITIS A IgM (test code = 2728) NON-REACTIVE NON-REACTIVE UNLESS OTHERW ISE INDICATED, ALL TESTING PERFORMED AT [facility] [address] [place] [address] NETWORK ANALYST: IRIS GRAJEDA M.D. CLIA NUMBER [id number] [facility] [place]. [id number] GC, AMPLIFIED, [id number] 00:00:00* Test Item Value Reference Range Interpretation Comme nts GONORRHEA, NAAT, URINE (test code = 62275) NEGATIVE Jordan TrotterHEPATITIS PROFILE (A,B,C)2022-12-28 00:00:00* Test Item Value Reference Range Interpretation Comme nts HEPATITIS A TOTAL AB (test c ode = 2725) REACTIVE HEPATITIS B SURF AG (test co de = 2739) NON-REACTIVE HEP B CORE TOTAL AB (test co de = 2729) NON-REACTIVE HEPATITIS B SURFACE AB (test code = 2737) NON-REACTIVE HEPATITIS C ANTIBODY (test c ode = 4675) NON-REACTIVE INTERPRETATION HEPATITIS A: (test code = 2552) (NOTE) INTERPRETATION HEPATITIS B: (test code = 50125) (NOTE) INTERPRETATION HEPATITIS C: (test code = 65426) (NOTE) Jordan Hoff AustinVAGINAL PATHOGENS DNA [id number] 00:00:00* Test Item Value Reference Range Interpretation Comme nts SUZE SPECIES (test code = 18513) NEGATIVE G. VAGINALIS (test code = 34546) NEGATIVE T. VAGINALIS (test code = 90388) NEGATIVE Jordan TrotterHEPATITIS A IgM [REFLEX]2022-12-28 00:00:00* Test Item Value Reference Range Interpretation Comme nts HEPATITIS A IgM (test code = 2728) NON-REACTIVE Jordan Hoff AustinHIV 1/2 4TH GEN, RFLX [id number] 00:00:00* Test Item Value Reference Range Interpretation Comme nts HIV 1/2 4TH GEN, RFLX CONF ( test code = 3514) NON-REACTIVE Jordan Hoff AustinRPR REFLEX TO T. PALLIDUM - [id number] 00:00:00* Test Item Value Reference Range Interpretation Comme nts RPR (test code = 13266) NON-REACTIVE RPR TITER (test code = 3500) NOT INDIC. TITER Jordan TrotterCHLAMYDIA, AMPLIFIED, [id number] 00:00:00* Test Item Value Reference Range Interpretation Comme nts CHLAMYDIA, NAAT, URINE (test code = 60694) NEGATIVE Jordan Hoff JvGC, AMPLIFIED, [id number] 00:00:00* Test Item Value Reference Range Interpretation Comme nts GONORRHEA, NAAT, URINE (test code = 19503) NEGATIVE Jordan Hoff AustinHEPATITIS PROFILE (A,B,C)2022-12-28 00:00:00* Test Item Value Reference Range Interpretation Comme nts HEPATITIS A TOTAL AB (test c ode = 2725) REACTIVE HEPATITIS B SURF AG (test co de = 2739) NON-REACTIVE HEP B CORE TOTAL AB (test co de = 2729) NON-REACTIVE HEPATITIS B SURFACE AB (test code = 2737) NON-REACTIVE HEPATITIS C ANTIBODY (test c ode = 4675) NON-REACTIVE INTERPRETATION HEPATITIS A: (test code = 2552) (NOTE) INTERPRETATION HEPATITIS B: (test code = 57905) (NOTE) INTERPRETATION HEPATITIS C: (test code = 33381) (NOTE) Jordan Hoff AustinVAGINAL PATHOGENS DNA [id number] 00:00:00* Test Item Value Reference Range Interpretation Comme nts SUZE SPECIES (test code = 95230) NEGATIVE G. VAGINALIS (test code = 23124) NEGATIVE T. VAGINALIS (test code = 09901) NEGATIVE Jordan TrotterHEPATITIS A IgM [REFLEX]2022-12-28 00:00:00* Test Item Value Reference Range Interpretation Comme nts HEPATITIS A IgM (test code = 2728) NON-REACTIVE Jordan Hoff AustinHIV 1/2 4TH GEN, RFLX [id number] 00:00:00* Test Item Value Reference Range Interpretation Comme nts HIV 1/2 4TH GEN, RFLX CONF ( test code = 3514) NON-REACTIVE Jordan Hoff AustinRPR REFLEX TO T. PALLIDUM - [id number] 00:00:00* Test Item Value Reference Range Interpretation Comme nts RPR (test code = 13339) NON-REACTIVE RPR TITER (test code = 3500) NOT INDIC. TITER Jordan Hoff AustinCHLAMYDIA, AMPLIFIED, [id number] 00:00:00* Test Item Value Reference Range Interpretation Comme nts CHLAMYDIA, NAAT, URINE (test code = 45690) NEGATIVE Jordan Hoff AustinVAGINAL PATHOGENS DNA [id number] 15:53:03* Test Item Value Reference Range Interpretation Comme nts SUZE SPECIES (test code = 19403) NEGATIVE NEGATIVE G. VAGINALIS (test code = 94645) POSITIVE NEGATIVE A T. VAGINALIS (test code = 34027) NEGATIVE NEGATIVE Note: The BD Aff irm VPIII Microbial Identification Testis a DNA probe test intended for use in the detectionand identification of Suze species, Gardnerellavaginalis and Trichomonas vaginalis nucleic acid. [facility] has important pathology staff changes effective 07/14/2022. New pathology staff will provide uninterrupted, excellent patient care and clinical consultation. See URL: [email or web address]. UNLESS OTHERWISE INDICATED, ALL TESTING PERFORMED AT [facility] [address] [place] [address] NETWORK ANALYST: IRIS GRAJEDA M.D. CLIA NUMBER [id number] [place]. [id number] VAGINAL PATHOGENS DNA [id number] 00:00:00* Test Item Value Reference Range Interpretation Comme nts SUZE SPECIES (test code = ) NEGATIVE G. VAGINALIS (test code = 08651) POSITIVE T. VAGINALIS (test code = 22013) NEGATIVE Jordan Luis Eduardo AustinVAGINAL PATHOGENS DNA [id number] 00:00:00* Test Item Value Reference Range Interpretation Comme nts SUZE SPECIES (test code = ) NEGATIVE G. VAGINALIS (test code = 11366) POSITIVE T. VAGINALIS (test code = 26781) NEGATIVE Jordan F AustinCREATININE, PERITONEAL [id number] 15:09:30* Test Item Value Reference Range Interpretation Comme nts CREATININE, PERITONEAL FLUID (test code = ) TEST NOT PERFORMED Unable to perform testing due to a laboratory error.Charges adjusted as applicable. SOURCE (test code = ) TEST NOT PERFORMED TESTING REFERRED BY [facility] [address] [place] [address] [place]. [id number] CLIA NO. [id number] TESTING PERFORMED AT [facility]. AT [address] [facility], [address] CLIA NO: [id number] VAGINAL PATHOGENS DNA [id number] 13:20:18* Test Item Value Reference Range Interpretation Comme nts SUZE SPECIES (test code = 21590) NEGATIVE NEGATIVE G. VAGINALIS (test code = 65588) POSITIVE NEGATIVE A T. VAGINALIS (test code = 91728) NEGATIVE NEGATIVE Note: The BD Aff irm VPIII Microbial Identification Testis a DNA probe test intended for use in the detectionand identification of Suze species, Gardnerellavaginalis and Trichomonas vaginalis nucleic acid. [facility] has important pathology staff changes effective 07/14/2022. New pathology staff will provide uninterrupted, excellent patient care and clinical consultation. See URL: [email or web address]. UNLESS OTHERWISE INDICATED, ALL TESTING PERFORMED AT [facility] [address] [place] [address] NETWORK ANALYST: IRIS GRAJEDA M.D. CLIA NUMBER [id number] [facility] [place]. [id number] CREATININE, PERITONEAL [id number] 00:00:00* Test Item Value Reference Range Interpretation Comme nts CREATININE, PERITONEAL FLUID (test code = ) TEST NOT PERFORMED SOURCE (test code = ) TEST NOT PERFORMED Jordan Hoff AustinVAGINAL PATHOGENS DNA PANEL [ADDED]2022-07-21 00:00:00* Test Item Value Reference Range Interpretation Comme nts SUZE SPECIES (test code = ) NEGATIVE G. VAGINALIS (test code = 68796) POSITIVE T. VAGINALIS (test code = 39307) NEGATIVE Jordan F AustinCREATININE, PERITONEAL [id number] 00:00:00* Test Item Value Reference Range Interpretation Comme nts CREATININE, PERITONEAL FLUID (test code = ) TEST NOT PERFORMED SOURCE (test code = ) TEST NOT PERFORMED Jordan F AustinVAGINAL PATHOGENS DNA PANEL [ADDED]2022-07-21 00:00:00* Test Item Value Reference Range Interpretation Comme nts SUZE SPECIES (test code = 02175) NEGATIVE G. VAGINALIS (test code = 28487) POSITIVE T. VAGINALIS (test code = 60105) NEGATIVE Jordan F AustinCT/NG, NAAT, [id number] 11:12:41* Test Item Value Reference Range Interpretation Comme nts CHLAMYDIA, NAAT, URINE (test code = 76179) NEGATIVE NEGATIVE Testing is perfo rmed with [employer] 6800/8800 systems usingreal-time polymerase chain reaction (PCR) method. A negative result does not exclude low level infection, specimensampling error, or collection error. GONORRHEA, NAAT, URINE (test code = 44519) NEGATIVE NEGATIVE Testing is perfo rmed with Allyssa MIGUEL ANGEL 6800/8800 systems usingreal-time polymerase chain reaction (PCR) method. A negative result does not exclude low level infection, specimensampling error, or collection error. CT/NG, TMA, [id number] 00:00:00* Test Item Value Reference Range Interpretation Comme nts CHLAMYDIA, NAAT, URINE (test code = 69724) NEGATIVE GONORRHEA, NAAT, URINE (test code = 39434) NEGATIVE Jordan TrotterCT/NG, TMA, [id number] 00:00:00* Test Item Value Reference Range Interpretation Comme nts CHLAMYDIA, NAAT, URINE (test code = 09229) NEGATIVE GONORRHEA, NAAT, URINE (test code = 73875) NEGATIVE Jordan TrotterHIV 1/2 4TH GEN, RFLX [id number] 06:38:56* Test Item Value Reference Range Interpretation Comme nts HIV 1/2 4TH GEN, RFLX CONF ( test code = 3514) NON-REACTIVE NON-REACTIVE HEPATITIS PANEL, [id number] 06:38:56* Test Item Value Reference Range Interpretation Comme nts HEPATITIS A IgM (test code = 61884) NON-REACTIVE NON-REACTIVE HEPATITIS B CORE IgM (test code = 4644) NON-REACTIVE NON-REACTIVE HEPATITIS B SURF AG (test code = 2739) NON-REACTIVE NON-REACTIVE HEPATITIS C ANTIBODY (test code = 4675) NON-REACTIVE NON-REACTIVE INTERPRETATION HEPATITIS A: (test code = 2552) (NOTE) Hepatitis A sero logy shows no evidence of acute hepatitis A. INTERPRETATION HEPATITIS B: (test code = 46411) (NOTE) Hepatitis B sero logy shows no evidence of acute hepatitis B andno indication of exposure to hepatitis B virus in the previous karla eight months. INTERPRETATION HEPATITIS C: (test code = 40833) (NOTE) Hepatitis C sero logy shows no evidence of exposure to hepatitisC virus at this time. It can take up to 12 months after exposure tothe hepatitis C virus for antibodies to become detectable in the blood in certain patients. [facility] has important pathology staff changes effective 07/14/2022. New pathology staff will provide uninterrupted, excellent patient care and clinical consultation. See URL: [email or web address]. UNLESS OTHERWISE INDICATED, ALL TESTING PERFORMED AT [facility] [address] [place] [address] NETWORK ANALYST: JONNY FREY M.D. IA NUMBER [id number] [facility] [place]. [id number] 05:32:53* Test Item Value Reference Range Interpretation Comme nts RPR RESULT (test code = 3501) NON-REACTIVE NON-REACTIVE RPR TITER (test code = 3500) NOT INDIC. TITER NOT INDIC. [id number] 00:00:00* Test Item Value Reference Range Interpretation Comme nts RPR RESULT (test code = 3501) NON-REACTIVE RPR TITER (test code = 3500) NOT INDIC. TITER Jordan TrotterACUTE HEPATITIS [id number] 00:00:00* Test Item Value Reference Range Interpretation Comme nts HEPATITIS A IgM (test code = 43151) NON-REACTIVE HEPATITIS B CORE IgM (test c ode = 4644) NON-REACTIVE HEPATITIS B SURF AG (test co de = 2739) NON-REACTIVE HEPATITIS C ANTIBODY (test c ode = 4675) NON-REACTIVE INTERPRETATION HEPATITIS A: (test code = 2552) (NOTE) INTERPRETATION HEPATITIS B: (test code = 29165) (NOTE) INTERPRETATION HEPATITIS C: (test code = 70184) (NOTE) Jordan TrotterHIV 1/2 4TH GEN, RFLX [id number] 00:00:00* Test Item Value Reference Range Interpretation Comme nts HIV 1/2 4TH GEN, RFLX CONF ( test code = 3514) NON-REACTIVE Jordan [id number] 00:00:00* Test Item Value Reference Range Interpretation Comme nts RPR RESULT (test code = 3501) NON-REACTIVE RPR TITER (test code = 3500) NOT INDIC. TITER Jordan TrotterACUTE HEPATITIS [id number] 00:00:00* Test Item Value Reference Range Interpretation Comme nts HEPATITIS A IgM (test code = 93213) NON-REACTIVE HEPATITIS B CORE IgM (test c ode = 4644) NON-REACTIVE HEPATITIS B SURF AG (test co de = 2739) NON-REACTIVE HEPATITIS C ANTIBODY (test c ode = 4675) NON-REACTIVE INTERPRETATION HEPATITIS A: (test code = 2552) (NOTE) INTERPRETATION HEPATITIS B: (test code = 92049) (NOTE) INTERPRETATION HEPATITIS C: (test code = 55632) (NOTE) Jordan TrotterHIV 1/2 4TH GEN, RFLX [id number] 00:00:00* Test Item Value Reference Range Interpretation Comme nts HIV /2 4TH GEN, RFLX CONF ( test code = 3514) NON-REACTIVE Jordan TrotterPAP TEST, THINPREP, [id number] 15:51:45* Test Item Value Reference Range Interpretation Comme nts SOURCE: (test code = 8001) Cervical SLIDES: (test code = 8011) 1 LMP: (test code = 8021) 02/20/2022 SPECIMEN ADEQUACY: (test code = 11706) (NOTE) Satisfactory for evaluation. Endocervical cells/transformation zone component not identified. INTERPRETATION: (test code = 60600) NILM/NO EPITH. ABNORMALITY;SEE BELOW --- - NEGATIVE FOR INTRAEPITHELIAL LESION OR MALIGNANCY (NILM) ---- BLOOD OR BLOOD BANK TECHNICIAN : (test code = 8101) RADHA Elliott(ASCP)IA C LOCATION: (test code = 70968) (NOTE) Specimens proces sed and interpreted at [facility], [address] [facility] [place] [address], , CLIA: [id number] CPT: (test code = 8140) (NOTE) 88282 UNLESS OTH ERWISE INDICATED, COMPUTER AIDED AND BLOOD OR BLOOD BANK TECHNICIAN SCREENING PERFORMED. The Pap test is a screening test with an inherent, but low probability of error. Your patient should be reminded to consult you immediately if she experiences any suspicious signs or symptoms, regardless of her Pap test result. An alternate report format containing images or consolidated prior Pap history is available as applicable. UNLESS OTHERWISE INDICATED, ALL TESTING PERFORMED [facility] [employer] [address] [place] [address] NETWORK ANALYST: JONNY FREY M.D. CLIA NUMBER [id number] [facility] [place]. [id number] CULTURE, [id number] 00:00:00* Test Item Value Reference Range Interpretation Comme nts CULTURE, URINE (test code = 98497) SPECIMEN NUMBER: [id number] Jordan TrotterPAP TEST, THINPREP, [id number] 00:00:00* Test Item Value Reference Range Interpretation Comme nts SOURCE: (test code = 8001) Cervical SLIDES: (test code = 8011) 1 LMP: (test code = 8021) 02/20/2022 SPECIMEN ADEQUACY: (test code = 83444) (NOTE) INTERPRETATION: (test code = 86859) NILM/NO EPITH. ABNORMALITY;SEE BELOW BLOOD OR BLOOD BANK TECHNICIAN: (test code = 8101) [place], CT(ASCP)IAC LOCATION: (test code = 07428) (NOTE) CPT: (test code = 8140) (NOTE) Jordan TrotterCULTURE, [id number] 00:00:00* Test Item Value Reference Range Interpretation Comme nts CULTURE, URINE (test code = 29811) SPECIMEN NUMBER: [id number] Jordan TrotterPAP TEST, THINPREP, [id number] 00:00:00* Test Item Value Reference Range Interpretation Comme nts SOURCE: (test code = 8001) Cervical SLIDES: (test code = 8011) 1 LMP: (test code = 8021) 02/20/2022 SPECIMEN ADEQUACY: (test code = 25167) (NOTE) INTERPRETATION: (test code = 64078) NILM/NO EPITH. ABNORMALITY;SEE BELOW BLOOD OR BLOOD BANK TECHNICIAN: (test code = 8101) [place], [place](ASCP)IAC LOCATION: (test code = 84033) (NOTE) CPT: (test code = 8140) (NOTE) Jordan TrotterCT/NG, TMA, [id number] 00:00:00* Test Item Value Reference Range Interpretation Comme nts GONORRHEA, NAAT (test code = 79217) NEGATIVE CHLAMYDIA, NAAT (test code = 11715) NEGATIVE Jordan [id number] 00:00:00* Test Item Value Reference Range Interpretation Comme nts RPR RESULT (test code = 3501) NON-REACTIVE RPR TITER (test code = 3500) NOT INDIC. TITER Jordan TrotterVAGINAL PATHOGENS DNA [id number] 00:00:00* Test Item Value Reference Range Interpretation Comme nts SUZE SPECIES (test code = ) NEGATIVE G. VAGINALIS (test code = 88873) NEGATIVE T. VAGINALIS (test code = 08159) NEGATIVE Jordan TrotterACUTE HEPATITIS [id number] 00:00:00* Test Item Value Reference Range Interpretation Comme nts HEPATITIS A IgM (test code = 83154) NON-REACTIVE HEPATITIS B CORE IgM (test c ode = 4644) NON-REACTIVE HEPATITIS B SURF AG (test co de = 2739) NON-REACTIVE HEPATITIS C ANTIBODY (test c ode = 4675) NON-REACTIVE INTERPRETATION HEPATITIS A: (test code = 2552) (NOTE) INTERPRETATION HEPATITIS B: (test code = 76857) (NOTE) INTERPRETATION HEPATITIS C: (test code = 71079) (NOTE) Jordan Hoff AustinHIV 1/2 4TH GEN, RFLX [id number] 00:00:00* Test Item Value Reference Range Interpretation Comme nts HIV 1/2 4TH GEN, RFLX CONF ( test code = 3514) NON-REACTIVE Jordan TrotterCT/NG, TMA, [id number] 00:00:00* Test Item Value Reference Range Interpretation Comme nts GONORRHEA, NAAT (test code = 69683) NEGATIVE CHLAMYDIA, NAAT (test code = 98503) NEGATIVE Jordan Hoff [id number] 00:00:00* Test Item Value Reference Range Interpretation Comme nts RPR RESULT (test code = 3501) NON-REACTIVE RPR TITER (test code = 3500) NOT INDIC. TITER Jordan TrotterVAGINAL PATHOGENS DNA [id number] 00:00:00* Test Item Value Reference Range Interpretation Comme nts SUZE SPECIES (test code = ) NEGATIVE G. VAGINALIS (test code = 95796) NEGATIVE T. VAGINALIS (test code = 11066) NEGATIVE Jordan Dhillon HEPATITIS [id number] 00:00:00* Test Item Value Reference Range Interpretation Comme nts HEPATITIS A IgM (test code = 35015) NON-REACTIVE HEPATITIS B CORE IgM (test c ode = 4644) NON-REACTIVE HEPATITIS B SURF AG (test co de = 2739) NON-REACTIVE HEPATITIS C ANTIBODY (test c ode = 4675) NON-REACTIVE INTERPRETATION HEPATITIS A: (test code = 2552) (NOTE) INTERPRETATION HEPATITIS B: (test code = 80467) (NOTE) INTERPRETATION HEPATITIS C: (test code = 19620) (NOTE) Jordan TrotterHIV 1/2 4TH GEN, RFLX [id number] 00:00:00* Test Item Value Reference Range Interpretation Comme nts HIV 1/2 4TH GEN, RFLX CONF ( test code = 3514) NON-REACTIVE Jordan TrotterCT/NG, NAAT, [id number] 18:14:26* Test Item Value Reference Range Interpretation Comme nts GONORRHEA, NAAT (test code = 57368) POSITIVE NEGATIVE A IMPORTANT NO BEAR: SEE ANNOUNCEMENT AT [email or web address] Note: Assay methodology is nucleic acid amplification by ear nose and throat specialist mediated amplification (TMA) utilizing the Aptima Combo 2 Assay. CHLAMYDIA, NAAT (test code = 96533) NEGATIVE NEGATIVE IMPORTANT NO BEAR: SEE ANNOUNCEMENT AT [email or web address] Note: Assay methodology is nucleic acid amplification by ear nose and throat specialist mediated amplification (TMA) utilizing the Aptima Combo 2 Assay. TRICHOMONAS, NAAT, [id number] 15:11:22* Test Item Value Reference Range Interpretation Comme nts TRICHOMONAS, NAAT (test code = 95125) NEGATIVE NEGATIVE IMPORTANT NO BEAR: SEE ANNOUNCEMENT AT [email or web address] Note: Assay methodology is nucleic acid amplification by ear nose and throat specialist mediated amplification (TMA) and Hybridization Protection Assay (HPA) utilizing the [employer] platform. A negative result does not exclude low level infection, specimensampling error, or collection error. UNLESS OTHERWISE INDICATED, ALL TESTING PERFORMED [facility] [address] [place] [address] NETWORK ANALYST: JONNY FREY M.D. [place] NUMBER [id number] [facility] [place]. [id number] 03:09:46* Test Item Value Reference Range Interpretation Comme nts RPR RESULT (test code = 3501) NON-REACTIVE NON-REACTIVE RPR TITER (test code = 3500) NOT INDIC. TITER NOT INDIC. HIV 1/2 4TH GEN, RFLX [id number] 02:57:16* Test Item Value Reference Range Interpretation Comme nts HIV 1/2 4TH GEN, RFLX CONF ( test code = 3514) NON-REACTIVE NON-REACTIVE HEPATITIS PANEL, [id number] 02:57:16* Test Item Value Reference Range Interpretation Comme nts HEPATITIS A IgM (test code = 88287) NON-REACTIVE NON-REACTIVE HEPATITIS B CORE IgM (test code = 4644) NON-REACTIVE NON-REACTIVE HEPATITIS B SURF AG (test code = 2739) NON-REACTIVE NON-REACTIVE HEPATITIS C ANTIBODY (test code = 4675) NON-REACTIVE NON-REACTIVE INTERPRETATION HEPATITIS A: (test code = 2552) (NOTE) Hepatitis A serology shows no evidence of acute hepatitis A. INTERPRETATION HEPATITIS B: (test code = 83522) (NOTE) Hepatitis B serology shows no evidence of acute hepatitis B andno indication of exposure to hepatitis B virus in the previous karla eight months. INTERPRETATION HEPATITIS C: (test code = 88308) (NOTE) Hepatitis C serology shows no evidence of exposure to hepatitisC virus at this time. It can take up to 12 months after exposure tothe hepatitis C virus for antibodies to become detectable in the blood in certain patients. ACUTE HEPATITIS [id number] 00:00:00* Test Item Value Reference Range Interpretation Comme nts HEPATITIS A IgM (test code = 68078) NON-REACTIVE HEPATITIS B CORE IgM (test c ode = 4644) NON-REACTIVE HEPATITIS B SURF AG (test co de = 2739) NON-REACTIVE HEPATITIS C ANTIBODY (test c ode = 4675) NON-REACTIVE INTERPRETATION HEPATITIS A: (test code = 2552) (NOTE) INTERPRETATION HEPATITIS B: (test code = 76403) (NOTE) INTERPRETATION HEPATITIS C: (test code = 54965) (NOTE) Jordan Hoff AustinCT/NG, TMA, [id number] 00:00:00* Test Item Value Reference Range Interpretation Comme nts GONORRHEA, NAAT (test code = 20221) POSITIVE CHLAMYDIA, NAAT (test code = 68078) NEGATIVE Jordan Hoff AustinTRICHOMONAS, URINE, [id number] 00:00:00* Test Item Value Reference Range Interpretation Comme nts TRICHOMONAS, NAAT (test code = 23405) NEGATIVE Jordan [id number] 00:00:00* Test Item Value Reference Range Interpretation Comme nts RPR RESULT (test code = 3501) NON-REACTIVE RPR TITER (test code = 3500) NOT INDIC. TITER Jordan TrotterHIV AB/AG COMBO RFLX [id number] 00:00:00* Test Item Value Reference Range Interpretation Comme nts HIV 1/2 4TH GEN, RFLX CONF ( test code = 3514) NON-REACTIVE Jordan TrotterACUTE HEPATITIS [id number] 00:00:00* Test Item Value Reference Range Interpretation Comme nts HEPATITIS A IgM (test code = 27553) NON-REACTIVE HEPATITIS B CORE IgM (test c ode = 4644) NON-REACTIVE HEPATITIS B SURF AG (test co de = 2739) NON-REACTIVE HEPATITIS C ANTIBODY (test c ode = 4675) NON-REACTIVE INTERPRETATION HEPATITIS A: (test code = 2552) (NOTE) INTERPRETATION HEPATITIS B: (test code = 49483) (NOTE) INTERPRETATION HEPATITIS C: (test code = 93677) (NOTE) Jordan Hoff AustinCT/NG, TMA, [id number] 00:00:00* Test Item Value Reference Range Interpretation Comme nts GONORRHEA, NAAT (test code = 64151) POSITIVE CHLAMYDIA, NAAT (test code = 11587) NEGATIVE Jordan Hoff AustinTRICHOMONAS, URINE, [id number] 00:00:00* Test Item Value Reference Range Interpretation Comme nts TRICHOMONAS, NAAT (test code = 69821) NEGATIVE Jordan Hoff [id number] 00:00:00* Test Item Value Reference Range Interpretation Comme nts RPR RESULT (test code = 3501) NON-REACTIVE RPR TITER (test code = 3500) NOT INDIC. TITER Jordan [id number] 00:00:00* Test Item Value Reference Range Interpretation Comme nts RPR RESULT (test code = 3501) NON-REACTIVE RPR TITER (test code = 3500) NOT INDIC. TITER HIV AB/AG COMBO RFLX [id number] 00:00:00* Test Item Value Reference Range Interpretation Comme nts HIV 1/2 4TH GEN, RFLX CONF ( test code = 3514) NON-REACTIVE ACUTE HEPATITIS [id number] 00:00:00* Test Item Value Reference Range Interpretation Comme nts HEPATITIS A IgM (test code = 25308) NON-REACTIVE HEPATITIS B CORE IgM (test c ode = 4644) NON-REACTIVE HEPATITIS B SURF AG (test co de = 2739) NON-REACTIVE HEPATITIS C ANTIBODY (test c ode = 4675) NON-REACTIVE INTERPRETATION HEPATITIS A: (test code = 2552) (NOTE) INTERPRETATION HEPATITIS B: (test code = 44751) (NOTE) INTERPRETATION HEPATITIS C: (test code = 49194) (NOTE) CT/NG, TMA, [id number] 00:00:00* Test Item Value Reference Range Interpretation Comme nts GONORRHEA, NAAT (test code = 74065) POSITIVE CHLAMYDIA, NAAT (test code = 78357) NEGATIVE TRICHOMONAS, URINE, [id number] 00:00:00* Test Item Value Reference Range Interpretation Comme nts TRICHOMONAS, NAAT (test code = 28166) NEGATIVE HIV AB/AG COMBO RFLX [id number] 00:00:00* Test Item Value Reference Range Interpretation Comme nts HIV 1/2 4TH GEN, RFLX CONF ( test code = 3514) NON-REACTIVE Jordan Hoff [id number] 00:00:00* Test Item Value Reference Range Interpretation Comme nts RPR RESULT (test code = 3501) NON-REACTIVE RPR TITER (test code = 3500) NOT INDIC. TITER HIV AB/AG COMBO RFLX [id number] 00:00:00* Test Item Value Reference Range Interpretation Comme nts HIV 1/2 4TH GEN, RFLX CONF ( test code = 3514) NON-REACTIVE ACUTE HEPATITIS [id number] 00:00:00* Test Item Value Reference Range Interpretation Comme nts HEPATITIS A IgM (test code = 48039) NON-REACTIVE HEPATITIS B CORE IgM (test c ode = 4694) NON-REACTIVE HEPATITIS B SURF AG (test co de = 2739) NON-REACTIVE HEPATITIS C ANTIBODY (test c ode = 0820) NON-REACTIVE INTERPRETATION HEPATITIS A: (test code = 2552) (NOTE) INTERPRETATION HEPATITIS B: (test code = 09380) (NOTE) INTERPRETATION HEPATITIS C: (test code = 58296) (NOTE) CT/NG, TMA, [id number] 00:00:00* Test Item Value Reference Range Interpretation Comme nts GONORRHEA, NAAT (test code = 09252) POSITIVE CHLAMYDIA, NAAT (test code = 55998) NEGATIVE TRICHOMONAS, URINE, [id number] 00:00:00* Test Item Value Reference Range Interpretation Comme nts TRICHOMONAS, NAAT (test code = 45929) NEGATIVE VAGINAL PATHOGENS DNA [id number] 10:04:37* Test Item Value Reference Range Interpretation Comme nts SUZE SPECIES (test code = 89858) POSITIVE NEGATIVE A G. VAGINALIS (test code = 07757) NEGATIVE NEGATIVE T. VAGINALIS (test code = 99320) NEGATIVE NEGATIVE VAGINAL PATHOGENS DNA [id number] 00:00:00* Test Item Value Reference Range Interpretation Comme nts SUZE SPECIES (test code = 57613) POSITIVE G. VAGINALIS (test code = 83860) NEGATIVE T. VAGINALIS (test code = 07252) NEGATIVE Jordan F AustinVAGINAL PATHOGENS DNA [id number] 00:00:00* Test Item Value Reference Range Interpretation Comme nts SUZE SPECIES (test code = 34399) POSITIVE G. VAGINALIS (test code = 31762) NEGATIVE T. VAGINALIS (test code = 99831) NEGATIVE VAGINAL PATHOGENS DNA [id number] 00:00:00* Test Item Value Reference Range Interpretation Comme nts SUZE SPECIES (test code = 00262) POSITIVE G. VAGINALIS (test code = 84153) NEGATIVE T. VAGINALIS (test code = 97918) NEGATIVE Jordan F AustinVAGINAL PATHOGENS DNA [id number] 00:00:00* Test Item Value Reference Range Interpretation Comme nts SUZE SPECIES (test code = 44719) POSITIVE G. VAGINALIS (test code = 31894) NEGATIVE T. VAGINALIS (test code = 06580) NEGATIVE VAGINAL PATHOGENS DNA [id number] 00:00:00* Test Item Value Reference Range Interpretation Comme nts SUZE SPECIES (test code = ) POSITIVE G. VAGINALIS (test code = ) NEGATIVE T. VAGINALIS (test code = ) NEGATIVE CHLAMYDIA, NAAT, [id number] 08:21:43* Test Item Value Reference Range Interpretation Comme nts CHLAMYDIA, NAAT (test code = 14530) NEGATIVE NEGATIVE IMPORTANT NO BEAR: SEE ANNOUNCEMENT AT [email or web address] Note: Assay methodology is nucleic acid amplification by ear nose and throat specialist mediated amplification (TMA) utilizing the Aptima Combo 2 Assay. GONORRHEA, NAAT, [id number] 08:21:43* Test Item Value Reference Range Interpretation Comme nts GONORRHEA, NAAT (test code = 76664) NEGATIVE NEGATIVE IMPORTANT NO BEAR: SEE ANNOUNCEMENT AT [email or web address] Note: Assay methodology is nucleic acid amplification by ear nose and throat specialist mediated amplification (TMA) utilizing the Aptima Combo 2 Assay. CHLAMYDIA, AMPLIFIED, [id number] 00:00:00* Test Item Value Reference Range Interpretation Comme nts CHLAMYDIA, NAAT (test code = 51189) NEGATIVE Jordan F AustinGC, AMPLIFIED, [id number] 00:00:00* Test Item Value Reference Range Interpretation Comme nts GONORRHEA, NAAT (test code = 38886) NEGATIVE Jordan F AustinCHLAMYDIA, AMPLIFIED, [id number] 00:00:00* Test Item Value Reference Range Interpretation Comme nts CHLAMYDIA, NAAT (test code = 51776) NEGATIVE Jordan F AustinGC, AMPLIFIED, [id number] 00:00:00* Test Item Value Reference Range Interpretation Comme nts GONORRHEA, NAAT (test code = 60707) NEGATIVE Jordan F AustinCHLAMYDIA, AMPLIFIED, [id number] 00:00:00* Test Item Value Reference Range Interpretation Comme nts CHLAMYDIA, NAAT (test code = 32509) NEGATIVE GC, AMPLIFIED, [id number] 00:00:00* Test Item Value Reference Range Interpretation Comme nts GONORRHEA, NAAT (test code = 00325) NEGATIVE CHLAMYDIA, AMPLIFIED, [id number] 00:00:00* Test Item Value Reference Range Interpretation Comme nts CHLAMYDIA, NAAT (test code = 43920) NEGATIVE GC, AMPLIFIED, [id number] 00:00:00* Test Item Value Reference Range Interpretation Comme nts GONORRHEA, NAAT (test code = 42333) NEGATIVE CHLAMYDIA, AMPLIFIED, [id number] 00:00:00* Test Item Value Reference Range Interpretation Comme nts CHLAMYDIA, NAAT (test code = 09842) NEGATIVE GC, AMPLIFIED, [id number] 00:00:00* Test Item Value Reference Range Interpretation Comme nts GONORRHEA, NAAT (test code = 06920) NEGATIVE HEMOGLOBIN [id number] 06:10:22* Test Item Value Reference Range Interpretation Comme nts HEMOGLOBIN A1c (test code = 48744) 5.2 % 4.2-5.6 CBC W/AUTO DIFF WITH [id number] 05:31:54* Test Item Value Reference Range Interpretation [...] 0.00-0.10 ABS NUCLEATED RBCS (test code = 16640) 0.00 K/UL 0.00-0.11 HIV 1/2 4TH GEN, RFLX [id number] 04:04:35* Test Item Value Reference Range Interpretation Comme nts HIV 1/2 4TH GEN, RFLX CONF ( test code = 3514) NON-REACTIVE NON-REACTIVE HEPATITIS PANEL, [id number] 04:04:35* Test Item Value Reference Range Interpretation Comme nts HEPATITIS A IgM (test code = 26033) NON-REACTIVE NON-REACTIVE HEPATITIS B CORE IgM (test code = 4644) NON-REACTIVE NON-REACTIVE HEPATITIS B SURF AG (test code = 2739) NON-REACTIVE NON-REACTIVE HEPATITIS C ANTIBODY (test code = 4675) NON-REACTIVE NON-REACTIVE INTERPRETATION HEPATITIS A: (test code = 2552) (NOTE) Hepatitis A serology shows no evidence of acute hepatitis A. INTERPRETATION HEPATITIS B: (test code = 18831) (NOTE) Hepatitis B serology shows no evidence of acute hepatitis B andno indication of exposure to hepatitis B virus in the previous karla eight months. INTERPRETATION HEPATITIS C: (test code = 21290) (NOTE) Hepatitis C serology shows no evidence of exposure to hepatitisC virus at this time. It can take up to 12 months after exposure tothe hepatitis C virus for antibodies to become detectable in the blood in certain patients. [id number] 02:50:30* Test Item Value Reference Range Interpretation Comme nts RPR RESULT (test code = 3501) NON-REACTIVE NON-REACTIVE RPR TITER (test code = 3500) NOT INDIC. TITER NOT INDIC. UNLESS OTHERWISE INDICATED, ALL TESTING PERFORMED [facility] [employer] [address] [place] [address] NETWORK ANALYST: JONNY FREY M.D. [place] NUMBER [id number] [facility] [place]. [id number] HIV AB/AG COMBO RFLX [id number] 00:00:00* Test Item Value Reference Range Interpretation Comme nts HIV 1/2 4TH GEN, RFLX CONF ( test code = 3514) NON-REACTIVE Jordan TrotterACUTE HEPATITIS [id number] 00:00:00* Test Item Value Reference Range Interpretation Comme nts HEPATITIS A IgM (test code = 45664) NON-REACTIVE HEPATITIS B CORE IgM (test c ode = 4644) NON-REACTIVE HEPATITIS B SURF AG (test co de = 2739) NON-REACTIVE HEPATITIS C ANTIBODY (test c ode = 4675) NON-REACTIVE INTERPRETATION HEPATITIS A: (test code = 2552) (NOTE) INTERPRETATION HEPATITIS B: (test code = 56525) (NOTE) INTERPRETATION HEPATITIS C: (test code = 99194) (NOTE) Jordan [id number] 00:00:00* Test Item Value Reference Range Interpretation Comme nts RPR RESULT (test code = 3501) NON-REACTIVE RPR TITER (test code = 3500) NOT INDIC. TITER Jordan TrotterCBC W/AUTO [id number] 00:00:00* Test Item Value Reference Range Interpretation [...] ABS NUCLEATED RBCS (test cod e = 31781) 0.00 K/UL Jordan TrotterHEMOGLOBIN [id number] 00:00:00* Test Item Value Reference Range Interpretation Comme nts HEMOGLOBIN A1c (test code = 20760) 5.2 % Jordan TrotterHIV AB/AG COMBO RFLX [id number] 00:00:00* Test Item Value Reference Range Interpretation Comme nts HIV 1/2 4TH GEN, RFLX CONF ( test code = 3514) NON-REACTIVE Jordan TrotterACUTE HEPATITIS [id number] 00:00:00* Test Item Value Reference Range Interpretation Comme nts HEPATITIS A IgM (test code = 13897) NON-REACTIVE HEPATITIS B CORE IgM (test c ode = 4644) NON-REACTIVE HEPATITIS B SURF AG (test co de = 2739) NON-REACTIVE HEPATITIS C ANTIBODY (test c ode = 4675) NON-REACTIVE INTERPRETATION HEPATITIS A: (test code = 2552) (NOTE) INTERPRETATION HEPATITIS B: (test code = 12667) (NOTE) INTERPRETATION HEPATITIS C: (test code = 76688) (NOTE) Jordan [id number] 00:00:00* Test Item Value Reference Range Interpretation Comme nts RPR RESULT (test code = 3501) NON-REACTIVE RPR TITER (test code = 3500) NOT INDIC. TITER Jordan TrotterCBC W/AUTO [id number] 00:00:00* Test Item Value Reference Range Interpretation [...] ABS NUCLEATED RBCS (test cod e = 64569) 0.00 K/UL HEMOGLOBIN [id number] 00:00:00* Test Item Value Reference Range Interpretation Comme [facility] HEMOGLOBIN A1c (test code = 23723) 5.2 % HIV AB/AG COMBO RFLX [id number] 00:00:00* Test Item Value Reference Range Interpretation Comme [facility] HIV 1/2 4TH GEN, RFLX CONF ( test code = 3514) NON-REACTIVE ACUTE HEPATITIS [id number] 00:00:00* Test Item Value Reference Range Interpretation Comme nts HEPATITIS A IgM (test code = 93810) NON-REACTIVE HEPATITIS B CORE IgM (test c ode = 4644) NON-REACTIVE HEPATITIS B SURF AG (test co de = 2739) NON-REACTIVE HEPATITIS C ANTIBODY (test c ode = 4690) NON-REACTIVE INTERPRETATION HEPATITIS A: (test code = 2552) (NOTE) INTERPRETATION HEPATITIS B: (test code = 81761) (NOTE) INTERPRETATION HEPATITIS C: (test code = 40109) (NOTE) [id number] 00:00:00* Test Item Value Reference Range Interpretation Comme nts RPR RESULT (test code = 3501) NON-REACTIVE RPR TITER (test code = 3500) NOT INDIC. TITER CBC W/AUTO [id number] 00:00:00* Test Item Value Reference Range Interpretation [...] ABS NUCLEATED RBCS (test cod e = 25644) 0.00 K/UL Jordan Hoff JvCBC W/AUTO [id number] 00:00:00* Test Item Value Reference Range Interpretation [...] ABS NUCLEATED RBCS (test cod e = 42301) 0.00 K/UL HEMOGLOBIN [id number] 00:00:00* Test Item Value Reference Range Interpretation Comme nts HEMOGLOBIN A1c (test code = 17448) 5.2 % HIV AB/AG COMBO RFLX [id number] 00:00:00* Test Item Value Reference Range Interpretation Comme nts HIV 1/2 4TH GEN, RFLX CONF ( test code = 3514) NON-REACTIVE ACUTE HEPATITIS [id number] 00:00:00* Test Item Value Reference Range Interpretation Comme nts HEPATITIS A IgM (test code = 99165) NON-REACTIVE HEPATITIS B CORE IgM (test c ode = 4692) NON-REACTIVE HEPATITIS B SURF AG (test co de = 2739) NON-REACTIVE HEPATITIS C ANTIBODY (test c ode = 4678) NON-REACTIVE INTERPRETATION HEPATITIS A: (test code = 2552) (NOTE) INTERPRETATION HEPATITIS B: (test code = 71302) (NOTE) INTERPRETATION HEPATITIS C: (test code = 47107) (NOTE) [id number] 00:00:00* Test Item Value Reference Range Interpretation Comme nts RPR RESULT (test code = 3501) NON-REACTIVE RPR TITER (test code = 3500) NOT INDIC. TITER CBC W/AUTO [id number] 00:00:00* Test Item Value Reference Range Interpretation [...] ABS NUCLEATED RBCS (test cod e = 55353) 0.00 K/UL HEMOGLOBIN [id number] 00:00:00* Test Item Value Reference Range Interpretation Comme nts HEMOGLOBIN A1c (test code = 53650) 5.2 % HIV AB/AG COMBO RFLX [id number] 00:00:00* Test Item Value Reference Range Interpretation Comme nts HIV 1/2 4TH GEN, RFLX CONF ( test code = 3514) NON-REACTIVE ACUTE HEPATITIS [id number] 00:00:00* Test Item Value Reference Range Interpretation Comme nts HEPATITIS A IgM (test code = 19931) NON-REACTIVE HEPATITIS B CORE IgM (test c ode = 4644) NON-REACTIVE HEPATITIS B SURF AG (test co de = 2739) NON-REACTIVE HEPATITIS C ANTIBODY (test c ode = 4688) NON-REACTIVE INTERPRETATION HEPATITIS A: (test code = 2552) (NOTE) INTERPRETATION HEPATITIS B: (test code = 24023) (NOTE) INTERPRETATION HEPATITIS C: (test code = 27178) (NOTE) [id number] 00:00:00* Test Item Value Reference Range Interpretation Comme nts RPR RESULT (test code = 3501) NON-REACTIVE RPR TITER (test code = 3500) NOT INDIC. TITER HEMOGLOBIN [id number] 00:00:00* Test Item Value Reference Range Interpretation Comme nts HEMOGLOBIN A1c (test code = 50764) 5.2 % Jordan F AustinCT/NG, NAAT, [id number] 18:09:18* Test Item Value Reference Range Interpretation Comme nts GONORRHEA, NAAT (test code = 54781) NEGATIVE NEGATIVE IMPORTANT NO BEAR: SEE ANNOUNCEMENT AT [email or web address] [email or web address] Note: Assay methodology is nucleic acid amplification by ear nose and throat specialist mediated amplification (TMA) utilizing the Aptima Combo 2 Assay. CHLAMYDIA, NAAT (test code = 98371) NEGATIVE NEGATIVE IMPORTANT NO BEAR: SEE ANNOUNCEMENT AT [email or web address] [email or web address] Note: Assay methodology is nucleic acid amplification by ear nose and throat specialist mediated amplification (TMA) utilizing the Aptima Combo 2 Assay. VAGINAL PATHOGENS DNA [id number] 15:05:08* Test Item Value Reference Range Interpretation Comme nts SUZE SPECIES (test code = 80443) NEGATIVE NEGATIVE G. VAGINALIS (test code = 23694) POSITIVE NEGATIVE A T. VAGINALIS (test code = 39466) NEGATIVE NEGATIVE [id number] 05:20:25* Test Item Value Reference Range Interpretation Comme nts RPR RESULT (test code = 3501) NON-REACTIVE NON-REACTIVE RPR TITER (test code = 3500) NOT INDIC. TITER NOT INDIC. UNLESS OTHERWISE INDICATED, ALL TESTING PER[facility] [address] [place] [address] NETWORK ANALYST: JONNY FREY M.D. [place] NUMBER [id number] [facility] [place]. [id number] HIV 1/2 4TH GEN, RFLX [id number] 04:05:17* Test Item Value Reference Range Interpretation Comme nts HIV 1/2 4TH GEN, RFLX CONF ( test code = 3514) NON-REACTIVE NON-REACTIVE HEPATITIS PANEL, [id number] 04:05:17* Test Item Value Reference Range Interpretation Comme nts HEPATITIS A IgM (test code = 37046) NON-REACTIVE NON-REACTIVE HEPATITIS B CORE IgM (test code = 4644) NON-REACTIVE NON-REACTIVE HEPATITIS B SURF AG (test code = 2739) NON-REACTIVE NON-REACTIVE HEPATITIS C ANTIBODY (test code = 4675) NON-REACTIVE NON-REACTIVE INTERPRETATION HEPATITIS A: (test code = 2552) (NOTE) Hepatitis A serology shows no evidence of acute hepatitis A. INTERPRETATION HEPATITIS B: (test code = 21457) (NOTE) Hepatitis B serology shows no evidence of acute hepatitis B andno indication of exposure to hepatitis B virus in the previous karla eight months. INTERPRETATION HEPATITIS C: (test code = 81481) (NOTE) Hepatitis C serology shows no evidence of exposure to hepatitisC virus at this time. It can take up to 12 months after exposure tothe hepatitis C virus for antibodies to become detectable in the blood in certain patients. GC AND CHLAMYDIA, AMPLIFIED, [id number] 00:00:00* Test Item Value Reference Range Interpretation Comme nts GONORRHEA, NAAT (test code = 12766) NEGATIVE CHLAMYDIA, NAAT (test code = 61539) NEGATIVE Jordan Luis Eduardo [id number] 00:00:00* Test Item Value Reference Range Interpretation Comme nts RPR RESULT (test code = 3501) NON-REACTIVE RPR TITER (test code = 3500) NOT INDIC. TITER Jordan TrotterVAGINAL PATHOGENS DNA [id number] 00:00:00* Test Item Value Reference Range Interpretation Comme nts SUZE SPECIES (test code = 77161) NEGATIVE G. VAGINALIS (test code = ) POSITIVE T. VAGINALIS (test code = ) NEGATIVE Jordan TrotterHIV AB/AG COMBO RFLX [id number] 00:00:00* Test Item Value Reference Range Interpretation Comme nts HIV 1/2 4TH GEN, RFLX CONF ( test code = 3514) NON-REACTIVE Jordan TrotterACUTE HEPATITIS [id number] 00:00:00* Test Item Value Reference Range Interpretation Comme nts HEPATITIS A IgM (test code = 51912) NON-REACTIVE HEPATITIS B CORE IgM (test c ode = 4644) NON-REACTIVE HEPATITIS B SURF AG (test co de = 2739) NON-REACTIVE HEPATITIS C ANTIBODY (test c ode = 4675) NON-REACTIVE INTERPRETATION HEPATITIS A: (test code = 2552) (NOTE) INTERPRETATION HEPATITIS B: (test code = 15665) (NOTE) INTERPRETATION HEPATITIS C: (test code = 71458) (NOTE) Jordan TrotterGC AND CHLAMYDIA, AMPLIFIED, [id number] 00:00:00* Test Item Value Reference Range Interpretation Comme nts GONORRHEA, NAAT (test code = 86820) NEGATIVE CHLAMYDIA, NAAT (test code = 04677) NEGATIVE Jordan [id number] 00:00:00* Test Item Value Reference Range Interpretation Comme nts RPR RESULT (test code = 3501) NON-REACTIVE RPR TITER (test code = 3500) NOT INDIC. TITER Jordan TrotterVAGINAL PATHOGENS DNA [id number] 00:00:00* Test Item Value Reference Range Interpretation Comme nts SUZE SPECIES (test code = 69537) NEGATIVE G. VAGINALIS (test code = 16007) POSITIVE T. VAGINALIS (test code = 95719) NEGATIVE Jordan TrotterHIV AB/AG COMBO RFLX [id number] 00:00:00* Test Item Value Reference Range Interpretation Comme nts HIV 1/2 4TH GEN, RFLX CONF ( test code = 3514) NON-REACTIVE ACUTE HEPATITIS [id number] 00:00:00* Test Item Value Reference Range Interpretation Comme nts HEPATITIS A IgM (test code = 95661) NON-REACTIVE HEPATITIS B CORE IgM (test c ode = 4644) NON-REACTIVE HEPATITIS B SURF AG (test co de = 2739) NON-REACTIVE HEPATITIS C ANTIBODY (test c ode = 4675) NON-REACTIVE INTERPRETATION HEPATITIS A: (test code = 2552) (NOTE) INTERPRETATION HEPATITIS B: (test code = 37295) (NOTE) INTERPRETATION HEPATITIS C: (test code = 07550) (NOTE) GC AND CHLAMYDIA, AMPLIFIED, [id number] 00:00:00* Test Item Value Reference Range Interpretation Comme nts GONORRHEA, NAAT (test code = 75770) NEGATIVE CHLAMYDIA, NAAT (test code = 90221) NEGATIVE [id number] 00:00:00* Test Item Value Reference Range Interpretation Comme nts RPR RESULT (test code = 3501) NON-REACTIVE RPR TITER (test code = 3500) NOT INDIC. TITER VAGINAL PATHOGENS DNA [id number] 00:00:00* Test Item Value Reference Range Interpretation Comme nts SUZE SPECIES (test code = 96540) NEGATIVE G. VAGINALIS (test code = 55730) POSITIVE T. VAGINALIS (test code = 13482) NEGATIVE HIV AB/AG COMBO RFLX [id number] 00:00:00* Test Item Value Reference Range Interpretation Comme nts HIV 1/2 4TH GEN, RFLX CONF ( test code = 3514) NON-REACTIVE Jordan F AustinHIV AB/AG COMBO RFLX [id number] 00:00:00* Test Item Value Reference Range Interpretation Comme nts HIV 1/2 4TH GEN, RFLX CONF ( test code = 3514) NON-REACTIVE ACUTE HEPATITIS [id number] 00:00:00* Test Item Value Reference Range Interpretation Comme nts HEPATITIS A IgM (test code = 84849) NON-REACTIVE HEPATITIS B CORE IgM (test c ode = 4644) NON-REACTIVE HEPATITIS B SURF AG (test co de = 2739) NON-REACTIVE HEPATITIS C ANTIBODY (test c ode = 4675) NON-REACTIVE INTERPRETATION HEPATITIS A: (test code = 2552) (NOTE) INTERPRETATION HEPATITIS B: (test code = 06282) (NOTE) INTERPRETATION HEPATITIS C: (test code = 62086) (NOTE) GC AND CHLAMYDIA, AMPLIFIED, [id number] 00:00:00* Test Item Value Reference Range Interpretation Comme nts GONORRHEA, NAAT (test code = 36458) NEGATIVE CHLAMYDIA, NAAT (test code = 80887) NEGATIVE [id number] 00:00:00* Test Item Value Reference Range Interpretation Comme nts RPR RESULT (test code = 3501) NON-REACTIVE RPR TITER (test code = 3500) NOT INDIC. TITER VAGINAL PATHOGENS DNA [id number] 00:00:00* Test Item Value Reference Range Interpretation Comme nts SUZE SPECIES (test code = ) NEGATIVE G. VAGINALIS (test code = 44617) POSITIVE T. VAGINALIS (test code = 28976) NEGATIVE HIV AB/AG COMBO RFLX [id number] 00:00:00* Test Item Value Reference Range Interpretation Comme nts HIV 1/2 4TH GEN, RFLX CONF ( test code = 3514) NON-REACTIVE ACUTE HEPATITIS [id number] 00:00:00* Test Item Value Reference Range Interpretation Comme nts HEPATITIS A IgM (test code = 28495) NON-REACTIVE HEPATITIS B CORE IgM (test c ode = 4644) NON-REACTIVE HEPATITIS B SURF AG (test co de = 2739) NON-REACTIVE HEPATITIS C ANTIBODY (test c ode = 4675) NON-REACTIVE INTERPRETATION HEPATITIS A: (test code = 2552) (NOTE) INTERPRETATION HEPATITIS B: (test code = 61693) (NOTE) INTERPRETATION HEPATITIS C: (test code = 38902) (NOTE) GC AND CHLAMYDIA, AMPLIFIED, [id number] 00:00:00* Test Item Value Reference Range Interpretation Comme nts GONORRHEA, NAAT (test code = 18121) NEGATIVE CHLAMYDIA, NAAT (test code = 17004) NEGATIVE [id number] 00:00:00* Test Item Value Reference Range Interpretation Comme nts RPR RESULT (test code = 3501) NON-REACTIVE RPR TITER (test code = 3500) NOT INDIC. TITER VAGINAL PATHOGENS DNA [id number] 00:00:00* Test Item Value Reference Range Interpretation Comme nts SUZE SPECIES (test code = ) NEGATIVE G. VAGINALIS (test code = 32720) POSITIVE T. VAGINALIS (test code = 60791) NEGATIVE ACUTE HEPATITIS [id number] 00:00:00* Test Item Value Reference Range Interpretation Comme nts HEPATITIS A IgM (test code = 73107) NON-REACTIVE HEPATITIS B CORE IgM (test c ode = 4644) NON-REACTIVE HEPATITIS B SURF AG (test co de = 2739) NON-REACTIVE HEPATITIS C ANTIBODY (test c ode = 4675) NON-REACTIVE INTERPRETATION HEPATITIS A: (test code = 2552) (NOTE) INTERPRETATION HEPATITIS B: (test code = 91041) (NOTE) INTERPRETATION HEPATITIS C: (test code = 28893) (NOTE) Jordan LaraRS-CoV-2 (COVID-19), RT-[id number] 15:37:51* Test Item Value Reference Range Interpretation Comments SARS-CoV-2 INTERPRETATION (test code = 85938) NEGATIVE SEE NOTE SARS-CoV-2 R NA NOT [...] prevalence is high. SOURCE (test code = 11233) NASOPHARYNGEAL Note: Methodolog y is Allyssa Miguel Angel Real-Time RT-PCR. The expected result or reference range is NEGATIVE (Not Detected). For more information regarding COVID-19 testing to include clinicalinformation, methodology detail, intended use, FDA authorization andrecommended fact sheets for patients or healthcare providers, see [employer] Announcement: SARS-CoV-2 (COVID-19) by NAAT at URL below (note,fact sheets are provided by method given in report:[email or web address] Alternatively, see downloadable PDF fact sheet at:[email or web address] UNLESS OTHERWISE INDICATED, ALL TESTING PERFORMED [facility] [employer] [address] [place] [address] NETWORK ANALYST: JONNY FREY M.D. CLIA NUMBER [id number] [place]. [id number] SARS-CoV-2 (COVID-19) by RT-PCR (HIGH RISK)2021-06-04 00:00:00* Test Item Value Reference Range Interpretation Comme nts SARS-CoV-2 INTERPRETATION (test code = 01979) NEGATIVE SOURCE (test code = 07747) NASOPHARYNGEAL Jordan Hoff WldsaeFJMA-FcO-3 (COVID-19) by RT-PCR (HIGH RISK)2021-06-04 00:00:00* Test Item Value Reference Range Interpretation Comme nts SARS-CoV-2 INTERPRETATION (test code = 79754) NEGATIVE SOURCE (test code = 81040) NASOPHARYNGEAL Jordan Hoff HjbfjtELCE-JmB-6 (COVID-19) by RT-PCR (HIGH RISK)2021-06-04 00:00:00* Test Item Value Reference Range Interpretation Comme nts SARS-CoV-2 INTERPRETATION (test code = 15120) NEGATIVE SOURCE (test code = 87237) NASOPHARYNGEAL SARS-CoV-2 (COVID-19) by RT-PCR (HIGH RISK)2021-06-04 00:00:00* Test Item Value Reference Range Interpretation Comme nts SARS-CoV-2 INTERPRETATION (test code = 24722) NEGATIVE SOURCE (test code = 34241) NASOPHARYNGEAL SARS-CoV-2 (COVID-19) by RT-PCR (HIGH RISK)2021-06-04 00:00:00* Test Item Value Reference Range Interpretation Comme nts SARS-CoV-2 INTERPRETATION (test code = 80230) NEGATIVE SOURCE (test code = 02582) NASOPHARYNGEAL CT/NG, NAAT, [id number] 11:27:50* Test Item Value Reference Range Interpretation Comme nts GONORRHEA, NAAT (test code = 97064) POSITIVE, SEE BELOW NEGATIVE A IMPORTANT NOTICE : SEE ANNOUNCEMENT AT [email or web address] Note: Assay methodology is nucleic acid amplification by ear nose and throat specialist mediated amplification (TMA) utilizing the Aptima Combo 2 Assay. IMPORTANT NOTICE: SEE ANNOUNCEMENT AT [email or web address] Note: Assay methodology is nucleic acid amplification by ear nose and throat specialist mediated amplification (TMA) utilizing the Aptima Combo 2 Assay. Positive results repeated and confirmed. CHLAMYDIA, NAAT (test code = 85095) POSITIVE, SEE BELOW NEGATIVE A IMPORTANT NOTICE : SEE ANNOUNCEMENT AT [email or web address]! StuffKit Note: Assay methodology is nucleic acid amplification by ear nose and throat specialist mediated amplification (TMA) utilizing the Aptima Combo 2 Assay. IMPORTANT NOTICE: SEE ANNOUNCEMENT AT [email or web address] Note: Assay methodology is nucleic acid amplification by ear nose and throat specialist mediated amplification (TMA) utilizing the Aptima Combo 2 Assay. Positive results repeated and confirmed. GC AND CHLAMYDIA, AMPLIFIED, [id number] 00:00:00* Test Item Value Reference Range Interpretation Comme nts GONORRHEA, NAAT (test code = 48360) POSITIVE, SEE BELOW CHLAMYDIA, NAAT (test code = 47796) POSITIVE, SEE BELOW Jordan Kaur AND CHLAMYDIA, AMPLIFIED, [id number] 00:00:00* Test Item Value Reference Range Interpretation Comme nts GONORRHEA, NAAT (test code = 92669) POSITIVE, SEE BELOW CHLAMYDIA, NAAT (test code = 19318) POSITIVE, SEE BELOW GC AND CHLAMYDIA, AMPLIFIED, [id number] 00:00:00* Test Item Value Reference Range Interpretation Comme nts GONORRHEA, NAAT (test code = 57905) POSITIVE, SEE BELOW CHLAMYDIA, NAAT (test code = 49194) POSITIVE, SEE BELOW GC AND CHLAMYDIA, AMPLIFIED, [id number] 00:00:00* Test Item Value Reference Range Interpretation Comme nts GONORRHEA, NAAT (test code = 88876) POSITIVE, SEE BELOW CHLAMYDIA, NAAT (test code = 61958) POSITIVE, SEE BELOW Jordan Kaur AND CHLAMYDIA, AMPLIFIED, [id number] 00:00:00* Test Item Value Reference Range Interpretation Comme nts GONORRHEA, NAAT (test code = 05356) POSITIVE, SEE BELOW CHLAMYDIA, NAAT (test code = 39249) POSITIVE, SEE BELOW HIV 1/2 4TH GEN, RFLX [id number] 05:00:55* Test Item Value Reference Range Interpretation Comme nts HIV 1/2 4TH GEN, RFLX CONF ( test code = 3514) NON-REACTIVE NON-REACTIVE HEPATITIS PANEL, [id number] 05:00:55* Test Item Value Reference Range Interpretation Comme nts HEPATITIS A IgM (test code = 35565) NON-REACTIVE NON-REACTIVE HEPATITIS B CORE IgM (test code = 4644) NON-REACTIVE NON-REACTIVE HEPATITIS B SURF AG (test code = 2739) NON-REACTIVE NON-REACTIVE HEPATITIS C ANTIBODY (test code = 4675) NON-REACTIVE NON-REACTIVE INTERPRETATION HEPATITIS A: (test code = 2552) (NOTE) Hepatitis A sero logy shows no evidence of acute hepatitis A. INTERPRETATION HEPATITIS B: (test code = 88974) (NOTE) Hepatitis B sero logy shows no evidence of acute hepatitis B andno indication of exposure to hepatitis B virus in the previous karla eight months. INTERPRETATION HEPATITIS C: (test code = 52091) (NOTE) Hepatitis C sero logy shows no evidence of exposure to hepatitisC virus at this time. It can take up to 12 months after exposure tothe hepatitis C virus for antibodies to become detectable in the blood in certain patients. UNLESS OTHERWISE INDICATED, ALL TESTING PERFORMED [facility] [employer] [address] [place] [address] NETWORK ANALYST: JONNY FREY M.D. IA NUMBER [id number] [facility] [place]. [id number] 04:58:29* Test Item Value Reference Range Interpretation Comme nts RPR RESULT (test code = 3501) NON-REACTIVE NON-REACTIVE RPR TITER (test code = 3500) NOT INDIC. TITER NOT INDIC. [id number] 00:00:00* Test Item Value Reference Range Interpretation Comme nts RPR RESULT (test code = 3501) NON-REACTIVE RPR TITER (test code = 3500) NOT INDIC. TITER Jordan TrotterACUTE HEPATITIS [id number] 00:00:00* Test Item Value Reference Range Interpretation Comme nts HEPATITIS A IgM (test code = 86600) NON-REACTIVE HEPATITIS B CORE IgM (test c ode = 4644) NON-REACTIVE HEPATITIS B SURF AG (test co de = 2739) NON-REACTIVE HEPATITIS C ANTIBODY (test c ode = 4675) NON-REACTIVE INTERPRETATION HEPATITIS A: (test code = 2552) (NOTE) INTERPRETATION HEPATITIS B: (test code = 77495) (NOTE) INTERPRETATION HEPATITIS C: (test code = 14584) (NOTE) Jordan TrotterHIV AB/AG COMBO RFLX [id number] 00:00:00* Test Item Value Reference Range Interpretation Comme nts HIV 1/2 4TH GEN, RFLX CONF ( test code = 3514) NON-REACTIVE Jordan [id number] 00:00:00* Test Item Value Reference Range Interpretation Comme nts RPR RESULT (test code = 3501) NON-REACTIVE RPR TITER (test code = 3500) NOT INDIC. TITER Jordan TrotterACUTE HEPATITIS [id number] 00:00:00* Test Item Value Reference Range Interpretation Comme nts HEPATITIS A IgM (test code = 51127) NON-REACTIVE HEPATITIS B CORE IgM (test c ode = 4644) NON-REACTIVE HEPATITIS B SURF AG (test co de = 2739) NON-REACTIVE HEPATITIS C ANTIBODY (test c ode = 4675) NON-REACTIVE INTERPRETATION HEPATITIS A: (test code = 2552) (NOTE) INTERPRETATION HEPATITIS B: (test code = 71408) (NOTE) INTERPRETATION HEPATITIS C: (test code = 07396) (NOTE) Jordan TrotterHIV AB/AG COMBO RFLX [id number] 00:00:00* Test Item Value Reference Range Interpretation Comme nts HIV 1/2 4TH GEN, RFLX CONF ( test code = 3514) NON-REACTIVE Jordan TrotterHIV AB/AG COMBO RFLX [id number] 00:00:00* Test Item Value Reference Range Interpretation Comme nts HIV 1/2 4TH GEN, RFLX CONF ( test code = 3514) NON-REACTIVE [id number] 00:00:00* Test Item Value Reference Range Interpretation Comme nts RPR RESULT (test code = 3501) NON-REACTIVE RPR TITER (test code = 3500) NOT INDIC. TITER ACUTE HEPATITIS [id number] 00:00:00* Test Item Value Reference Range Interpretation Comme nts HEPATITIS A IgM (test code = 01436) NON-REACTIVE HEPATITIS B CORE IgM (test c ode = 4644) NON-REACTIVE HEPATITIS B SURF AG (test co de = 2739) NON-REACTIVE HEPATITIS C ANTIBODY (test c ode = 4675) NON-REACTIVE INTERPRETATION HEPATITIS A: (test code = 2552) (NOTE) INTERPRETATION HEPATITIS B: (test code = 35374) (NOTE) INTERPRETATION HEPATITIS C: (test code = 17946) (NOTE) HIV AB/AG COMBO RFLX [id number] 00:00:00* Test Item Value Reference Range Interpretation Comme nts HIV 1/2 4TH GEN, RFLX CONF ( test code = 3514) NON-REACTIVE [id number] 00:00:00* Test Item Value Reference Range Interpretation Comme nts RPR RESULT (test code = 3501) NON-REACTIVE RPR TITER (test code = 3500) NOT INDIC. TITER ACUTE HEPATITIS [id number] 00:00:00* Test Item Value Reference Range Interpretation Comme nts HEPATITIS A IgM (test code = 19661) NON-REACTIVE HEPATITIS B CORE IgM (test c ode = 4644) NON-REACTIVE HEPATITIS B SURF AG (test co de = 2739) NON-REACTIVE HEPATITIS C ANTIBODY (test c ode = 4675) NON-REACTIVE INTERPRETATION HEPATITIS A: (test code = 2552) (NOTE) INTERPRETATION HEPATITIS B: (test code = 38300) (NOTE) INTERPRETATION HEPATITIS C: (test code = 79462) (NOTE) HIV AB/AG COMBO RFLX [id number] 00:00:00* Test Item Value Reference Range Interpretation Comme nts HIV 1/2 4TH GEN, RFLX CONF ( test code = 3514) NON-REACTIVE [id number] 00:00:00* Test Item Value Reference Range Interpretation Comme nts RPR RESULT (test code = 3501) NON-REACTIVE RPR TITER (test code = 3500) NOT INDIC. TITER ACUTE HEPATITIS [id number] 00:00:00* Test Item Value Reference Range Interpretation Comme nts HEPATITIS A IgM (test code = 70630) NON-REACTIVE HEPATITIS B CORE IgM (test c ode = 4644) NON-REACTIVE HEPATITIS B SURF AG (test co de = 2739) NON-REACTIVE HEPATITIS C ANTIBODY (test c ode = 4675) NON-REACTIVE INTERPRETATION HEPATITIS A: (test code = 2552) (NOTE) INTERPRETATION HEPATITIS B: (test code = 45232) (NOTE) INTERPRETATION HEPATITIS C: (test code = 16209) (NOTE) RPR [ADDED]2021-02-18 00:00:00* Test Item Value Reference Range Interpretation Comme nts RPR RESULT (test code = 3501) NON-REACTIVE RPR TITER (test code = 3500) NOT INDIC. TITER Jordan Hoff AustinRPR [ADDED]2021-02-18 00:00:00* Test Item Value Reference Range [...] (test code = 3500) NOT INDIC. TITER Jordan TrotterVAGINAL PATHOGENS DNA [id number] 00:00:00* Test Item Value Reference Range Interpretation Comme nts SUZE SPECIES (test code = 62122) NEGATIVE G. VAGINALIS (test code = 11307) POSITIVE T. VAGINALIS (test code = 85274) NEGATIVE Jordan TrotterHIV 1/2 4TH GEN, RFLX CONF [ADDED]2021-02-17 00:00:00* Test Item Value Reference Range Interpretation Comme nts HIV 1/2 4TH GEN, RFLX CONF ( test code = 3514) NON-REACTIVE Jordan TrotterVAGINAL PATHOGENS DNA [id number] 00:00:00* Test Item Value Reference Range Interpretation Comme nts SUZE SPECIES (test code = 91617) NEGATIVE G. VAGINALIS (test code = 88976) POSITIVE T. VAGINALIS (test code = 90264) NEGATIVE VAGINAL PATHOGENS DNA [id number] 00:00:00* Test Item Value Reference Range Interpretation Comme nts SUZE SPECIES (test code = 44025) NEGATIVE G. VAGINALIS (test code = 23319) POSITIVE T. VAGINALIS (test code = 17157) NEGATIVE Jordan TrotterHIV 1/2 4TH GEN, RFLX CONF [ADDED]2021-02-17 00:00:00* Test Item Value Reference Range Interpretation Comme nts HIV 1/2 4TH GEN, RFLX CONF ( test code = 3514) NON-REACTIVE VAGINAL PATHOGENS DNA [id number] 00:00:00* Test Item Value Reference Range Interpretation Comme nts SUZE SPECIES (test code = 56377) NEGATIVE G. VAGINALIS (test code = 52367) POSITIVE T. VAGINALIS (test code = 36104) NEGATIVE HIV 1/2 4TH GEN, RFLX CONF [ADDED]2021-02-17 00:00:00* Test Item Value Reference Range Interpretation Comme nts HIV 1/2 4TH GEN, RFLX CONF ( test code = 3514) NON-REACTIVE VAGINAL PATHOGENS DNA [id number] 00:00:00* Test Item Value Reference Range Interpretation Comme nts SUZE SPECIES (test code = ) NEGATIVE G. VAGINALIS (test code = 37995) POSITIVE T. VAGINALIS (test code = 19358) NEGATIVE HIV 1/2 4TH GEN, RFLX CONF [ADDED]2021-02-17 00:00:00* Test Item Value Reference Range Interpretation Comme nts HIV 1/2 4TH GEN, RFLX CONF ( test code = 3514) NON-REACTIVE Jordan F AustinHIV 1/2 4TH GEN, RFLX CONF [ADDED]2021-02-17 00:00:00* Test Item Value Reference Range Interpretation Comme nts HIV 1/2 4TH GEN, RFLX CONF ( test code = 3514) NON-REACTIVE CT/NG, NAAT, URINE [ADDED]2021-02-16 00:00:00* Test Item Value Reference Range Interpretation Comme nts GONORRHEA, NAAT (test code = 73854) NEGATIVE CHLAMYDIA, NAAT (test code = 59490) NEGATIVE Jordan F AustinCT/NG, NAAT, URINE [ADDED]2021-02-16 00:00:00* Test Item Value Reference Range Interpretation Comme nts GONORRHEA, NAAT (test code = 77698) NEGATIVE CHLAMYDIA, NAAT (test code = 72725) NEGATIVE Jordan F AustinCT/NG, NAAT, URINE [ADDED]2021-02-16 00:00:00* Test Item Value Reference Range Interpretation Comme nts GONORRHEA, NAAT (test code = 95895) NEGATIVE CHLAMYDIA, NAAT (test code = 61248) NEGATIVE CT/NG, NAAT, URINE [ADDED]2021-02-16 00:00:00* Test Item Value Reference Range Interpretation Comme nts GONORRHEA, NAAT (test code = 57132) NEGATIVE CHLAMYDIA, NAAT (test code = 41274) NEGATIVE CT/NG, NAAT, URINE [ADDED]2021-02-16 00:00:00* Test Item Value Reference Range Interpretation Comme nts GONORRHEA, NAAT (test code = 15891) NEGATIVE CHLAMYDIA, NAAT (test code = 89582) NEGATIVE GC AND CHLAMYDIA, AMPLIFIED, [id number] 00:00:00* Test Item Value Reference Range Interpretation Comme nts GONORRHEA, NAAT (test code = 93127) TEST NOT PERFORMED CHLAMYDIA, NAAT (test code = 78877) TEST NOT PERFORMED Jordan F AustinGC AND CHLAMYDIA, AMPLIFIED, [id number] 00:00:00* Test Item Value Reference Range Interpretation Comme nts GONORRHEA, NAAT (test code = 22662) TEST NOT PERFORMED CHLAMYDIA, NAAT (test code = 00631) TEST NOT PERFORMED Jordan F AustinGC AND CHLAMYDIA, AMPLIFIED, [id number] 00:00:00* Test Item Value Reference Range Interpretation Comme nts GONORRHEA, NAAT (test code = 49479) TEST NOT PERFORMED CHLAMYDIA, NAAT (test code = 35189) TEST NOT PERFORMED GC AND CHLAMYDIA, AMPLIFIED, [id number] 00:00:00* Test Item Value Reference Range Interpretation Comme nts GONORRHEA, NAAT (test code = 14728) TEST NOT PERFORMED CHLAMYDIA, NAAT (test code = 69474) TEST NOT PERFORMED GC AND CHLAMYDIA, AMPLIFIED, [id number] 00:00:00* Test Item Value Reference Range Interpretation Comme nts GONORRHEA, NAAT (test code = 73215) TEST NOT PERFORMED CHLAMYDIA, NAAT (test code = 36886) TEST NOT PERFORMED CHLAMYDIA/N. GONORRHOEAE RNA, TMA (REFL)2021-01-22 00:00:00* Test Item Value Reference Range Interpretation Comme nts CHLAMYDIA TRACHOMATIS RNA, T MA, UROGENITAL (test code = 64520-3) NOT DETECTED NEISSERIA GONORRHOEAE RNA, T MA, UROGENITAL (test code = 06463-3) NOT DETECTED Jordan F AustinCHLAMYDIA/N. GONORRHOEAE RNA, TMA (REFL)2021-01-22 00:00:00* Test Item Value Reference Range Interpretation Comme nts CHLAMYDIA TRACHOMATIS RNA, T MA, UROGENITAL (test code = 77551-2) NOT DETECTED NEISSERIA GONORRHOEAE RNA, T MA, UROGENITAL (test code = 74759-2) NOT DETECTED Jordan Hoff AustinCHLAMYDIA/N. GONORRHOEAE RNA, TMA (REFL)2021-01-22 00:00:00* Test Item Value Reference Range Interpretation Comme nts CHLAMYDIA TRACHOMATIS RNA, T MA, UROGENITAL (test code = 04697-1) NOT DETECTED NEISSERIA GONORRHOEAE RNA, T MA, UROGENITAL (test code = 39854-5) NOT DETECTED COMMENT (test code = ) CHLAMYDIA/N. GONORRHOEAE RNA, TMA (REFL)2021-01-22 00:00:00* Test Item Value Reference Range Interpretation Comme nts CHLAMYDIA TRACHOMATIS RNA, T MA, UROGENITAL (test code = 01436-6) NOT DETECTED NEISSERIA GONORRHOEAE RNA, T MA, UROGENITAL (test code = 82338-5) NOT DETECTED COMMENT (test code = ) CHLAMYDIA/N. GONORRHOEAE RNA, TMA (REFL)2021-01-22 00:00:00* Test Item Value Reference Range Interpretation Comme nts CHLAMYDIA TRACHOMATIS RNA, T MA, UROGENITAL (test code = 27622-1) NOT DETECTED NEISSERIA GONORRHOEAE RNA, T MA, UROGENITAL (test code = 45611-8) NOT DETECTED COMMENT (test code = ) C. TRACHOMATIS/N. GONORRHOEAE, RECTAL/PHARYNGEAL [ADDED]2021-01-13 00:00:00* Test Item Value Reference Range Interpretation Comme nts SOURCE (test code = 65609) THROAT C. TRACHOMATIS (test code = 93061) NEGATIVE N. GONORRHOEAE (test code = 14292) NEGATIVE Jordan Hoff AustinC. TRACHOMATIS/N. GONORRHOEAE, RECTAL/PHARYNGEAL [ADDED] 2021-01-13 00:00:00* Test Item Value Reference Range Interpretation Comme nts SOURCE (test code = 06909) THROAT C. TRACHOMATIS (test code = 87088) NEGATIVE N. GONORRHOEAE (test code = 37397) NEGATIVE C. TRACHOMATIS/N. GONORRHOEAE, RECTAL/PHARYNGEAL [ADDED]2021-01-13 00:00:00* Test Item Value Reference Range Interpretation Comme nts SOURCE (test code = 02855) THROAT C. TRACHOMATIS (test code = 36921) NEGATIVE N. GONORRHOEAE (test code = 73848) NEGATIVE C. TRACHOMATIS/N. GONORRHOEAE, RECTAL/PHARYNGEAL [ADDED]2021-01-13 00:00:00* Test Item Value Reference Range Interpretation Comme nts SOURCE (test code = 39882) THROAT C. TRACHOMATIS (test code = 70776) NEGATIVE N. GONORRHOEAE (test code = 48770) NEGATIVE C. TRACHOMATIS/N. GONORRHOEAE, RECTAL/PHARYNGEAL [ADDED]2021-01-13 00:00:00* Test Item Value Reference Range Interpretation Comme nts SOURCE (test code = 89270) THROAT C. TRACHOMATIS (test code = 50175) NEGATIVE N. GONORRHOEAE (test code = 68500) NEGATIVE Jordan Hoff AustinCHLAMYDIA/N. GONORRHOEAE RNA, [id number] 00:00:00* Test Item Value Reference Range Interpretation Comme nts CHLAMYDIA TRACHOMATIS RNA, T MA, UROGENITAL (test code = 20049-3) DETECTED NEISSERIA GONORRHOEAE RNA, T MA, UROGENITAL (test code = 78170-6) NOT DETECTED Jordan Luis Eduardo AustinCARDIO IQ(R) VITAMIN D, 25-HYDROXY, LC/MS/[id number] 00:00:00 * Test Item Value Reference Range Interpretation Comme nts VITAMIN D, 25-OH, TOTAL (vinod t code = 25373-9) 21 ng/mL VITAMIN D, 25-OH, D3 (test c ode = 1989-1) 21 ng/mL VITAMIN D, 25-OH, D2 (test c ode = 2236-8) <4.0 ng/mL Jordan Hoff AustinCHLAMYDIA/N. GONORRHOEAE RNA, [id number] 00:00:00* Test Item Value Reference Range Interpretation Comme nts CHLAMYDIA TRACHOMATIS RNA, T MA, UROGENITAL (test code = 93989-9) DETECTED NEISSERIA GONORRHOEAE RNA, T MA, UROGENITAL (test code = 81076-8) NOT DETECTED Jordan Luis Eduardo AustinCARDIO IQ(R) VITAMIN D, 25-HYDROXY, LC/MS/[id number] 00:00:00 * Test Item Value Reference Range Interpretation Comme nts VITAMIN D, 25-OH, TOTAL (vinod t code = 67701-0) 21 ng/mL VITAMIN D, 25-OH, D3 (test c ode = 1989-05) 21 ng/mL VITAMIN D, 25-OH, D2 (test c ode = 6-8) <4.0 ng/mL CHLAMYDIA/N. GONORRHOEAE RNA, [id number] 00:00:00* Test Item Value Reference Range Interpretation Comme nts CHLAMYDIA TRACHOMATIS RNA, T MA, UROGENITAL (test code = 89075-8) DETECTED NEISSERIA GONORRHOEAE RNA, T MA, UROGENITAL (test code = 00809-5) NOT DETECTED COMMENT (test code = ) CARDIO IQ(R) VITAMIN D, 25-HYDROXY, LC/MS/[id number] 00:00:00* Test Item Value Reference Range Interpretation Comme nts VITAMIN D, 25-OH, TOTAL (vinod t code = 59444-1) 21 ng/mL VITAMIN D, 25-OH, D3 (test c ode = 1989-05) 21 ng/mL VITAMIN D, 25-OH, D2 (test c ode = 2235-8) <4.0 ng/mL Jordan Hoff Arabella IQ(R) VITAMIN D, 25-HYDROXY, LC/MS/[id number] 00:00:00 * Test Item Value Reference Range Interpretation Comme nts VITAMIN D, 25-OH, TOTAL (vinod t code = 64744-4) 21 ng/mL VITAMIN D, 25-OH, D3 (test c ode = 1989-05) 21 ng/mL VITAMIN D, 25-OH, D2 (test c ode = 2235-8) <4.0 ng/mL CHLAMYDIA/N. GONORRHOEAE RNA, [id number] 00:00:00* Test Item Value Reference Range Interpretation Comme nts CHLAMYDIA TRACHOMATIS RNA, T MA, UROGENITAL (test code = 10626-8) DETECTED NEISSERIA GONORRHOEAE RNA, T MA, UROGENITAL (test code = 32881-9) NOT DETECTED COMMENT (test code = ) CARDIO IQ(R) VITAMIN D, 25-HYDROXY, LC/MS/[id number] 00:00:00* Test Item Value Reference Range Interpretation Comme nts VITAMIN D, 25-OH, TOTAL (vinod t code = 86468-2) 21 ng/mL VITAMIN D, 25-OH, D3 (test c ode = 1989-) 21 ng/mL VITAMIN D, 25-OH, D2 (test c ode = 2236-8) <4.0 ng/mL CHLAMYDIA/N. GONORRHOEAE RNA, [id number] 00:00:00* Test Item Value Reference Range Interpretation Comme nts CHLAMYDIA TRACHOMATIS RNA, T MA, UROGENITAL (test code = 91368-0) DETECTED NEISSERIA GONORRHOEAE RNA, T MA, UROGENITAL (test code = 36314-1) NOT DETECTED COMMENT (test code = ) CBC (INCLUDES DIFF/PLT)2020-10-06 00:00:00* Test Item Value [...] cells/uL ABSOLUTE BAND NEUTROPHILS (test code = 76701-7) DNR cells/uL ABSOLUTE METAMYELOCYTES (vinod t code = 88400-6) DNR cells/uL ABSOLUTE MYELOCYTES (test code = 26145-5) DNR cells/uL ABSOLUTE PROMYELOCYTES (test code = 78760-8) DNR cells/uL ABSOLUTE LYMPHOCYTES (test code = 731-0) 1476 cells/uL ABSOLUTE MONOCYTES (test cod e = 742-7) 390 cells/uL ABSOLUTE EOSINOPHILS (test code = 711-2) 132 cells/uL ABSOLUTE BASOPHILS (test cod e = 704-7) 19 cells/uL ABSOLUTE BLASTS (test code = 26398-8) DNR cells/uL ABSOLUTE NUCLEATED RBC (test code = 29653-0) DNR cells/uL NEUTROPHILS (test code = 770-8) 57.1 % BAND NEUTROPHILS (test code = 764-1) DNR % METAMYELOCYTES (test code = 740-1) DNR % MYELOCYTES (test code = 749-2) DNR % PROMYELOCYTES (test code = 783-1) DNR % LYMPHOCYTES (test code = 736-9) 31.4 % REACTIVE LYMPHOCYTES (test code = 91178-6) DNR % MONOCYTES (test code = 5905-5) 8.3 % EOSINOPHILS (test code = 713-8) 2.8 % BASOPHILS (test code = 706-2) 0.4 % BLASTS (test code = 709-6) DNR % NUCLEATED RBC (test code = 93177-4) DNR /100WBC COMMENT(S) (test code = 8251-1) DNR Jordan Luis Eduardo AustinLIPID PANEL (REFL)2020-10-06 00:00:00* Test Item Value Reference Range Interpretation Comme nts CHOLESTEROL, TOTAL (test cod e = 2093-3) 138 mg/dL HDL CHOLESTEROL (test code = 2085-9) 52 mg/dL TRIGLYCERIDES (test code = 2571-8) 78 mg/dL LDL-CHOLESTEROL (test code = 11456-5) 70 mg/dL(calc) CHOL/HDLC RATIO (test code = 9830-1) 2.7 (calc) NON HDL CHOLESTEROL (test co de = 88609-3) 86 mg/dL(calc) Jordan Luis Eduardo JvCOMPREHENSIVE METABOLIC [id number] 00:00:00* Test Item Value Reference Range Interpretation Comme nts GLUCOSE (test code = 2345-7) 112 mg/dL UREA NITROGEN (BUN) (test code = 3094-0) 14 mg/dL CREATININE (test code = 2160-0) 0.71 mg/dL eGFR NON-AFR. UZBEK (test code = 50518-6) 123 mL/min/1.73m2 eGFR (test code = 51129-0) 143 mL/min/1.73m2 BUN/CREATININE RATIO (test code = 3097-3) NOT APPLICABLE (calc) SODIUM (test code = 2951-2) 141 mmol/L POTASSIUM (test code = 2823-3) 4.2 mmol/L CHLORIDE (test code = 2075-0) 108 mmol/L CARBON DIOXIDE (test code = 2027-9) 23 mmol/L CALCIUM (test code = 94472-5) 9.4 mg/dL PROTEIN, TOTAL (test code = 2885-2) 6.7 g/dL ALBUMIN (test code = 1751-7) 4.3 g/dL GLOBULIN (test code = 96393-0) 2.4 g/dL(calc) ALBUMIN/GLOBULIN RATIO (test code = 1759-0) 1.8 (calc) BILIRUBIN, TOTAL (test code = 1975-2) 0.3 mg/dL ALKALINE PHOSPHATASE (test code = 6768-6) 54 U/L AST (test code = 1920-8) 16 U/L ALT (test code = 1742-6) 17 U/L Jordan [id number] 00:00:00* Test Item Value Reference Range Interpretation Comme rylan TSH (test code = 3016-3) 0.93 mIU/L Jordan TrotterHEMOGLOBIN [id number] 00:00:00* Test Item Value Reference Range Interpretation Comme rylan HEMOGLOBIN A1c (test code = 4548-4) 4.8 %oftotalHgb Jordan TrotterRPR (MONITOR) W/REFL [id number] 00:00:00* Test Item Value Reference Range Interpretation Comme rylan RPR (MONITOR) W/REFL TITER ( test code = 54511-1) NON-REACTIVE Jordan TrotterHIV 1/2 ANTIGEN/ANTIBODY,FOURTH GENERATION [id number] 00:00:00* Test Item Value Reference Range Interpretation Comme rylan HIV AG/AB, 4TH GEN (test cod e = 14846-8) NON-REACTIVE Jordan TrotterCBC (INCLUDES DIFF/PLT)2020-10-06 00:00:00* Test Item Value Reference Range Interpretation Comme rylna WHITE BLOOD CELL COUNT (test code = [...] cells/uL ABSOLUTE BAND NEUTROPHILS (test code = 56248-6) DNR cells/uL ABSOLUTE METAMYELOCYTES (vinod t code = 57950-5) DNR cells/uL ABSOLUTE MYELOCYTES (test code = 68043-3) DNR cells/uL ABSOLUTE PROMYELOCYTES (test code = 67851-7) DNR cells/uL ABSOLUTE LYMPHOCYTES (test code = 731-0) 1476 cells/uL ABSOLUTE MONOCYTES (test cod e = 742-7) 390 cells/uL ABSOLUTE EOSINOPHILS (test code = 711-2) 132 cells/uL ABSOLUTE BASOPHILS (test cod e = 704-7) 19 cells/uL ABSOLUTE BLASTS (test code = 92614-1) DNR cells/uL ABSOLUTE NUCLEATED RBC (test code = 15844-5) DNR cells/uL NEUTROPHILS (test code = 770-8) 57.1 % BAND NEUTROPHILS (test code = 764-1) DNR % METAMYELOCYTES (test code = 740-1) DNR % MYELOCYTES (test code = 749-2) DNR % PROMYELOCYTES (test code = 783-1) DNR % LYMPHOCYTES (test code = 736-9) 31.4 % REACTIVE LYMPHOCYTES (test code = 80244-6) DNR % MONOCYTES (test code = 5905-5) 8.3 % EOSINOPHILS (test code = 713-8) 2.8 % BASOPHILS (test code = 706-2) 0.4 % BLASTS (test code = 709-6) DNR % NUCLEATED RBC (test code = 43963-4) DNR /100WBC COMMENT(S) (test code = 8251-1) DNR Jordan Hoff AustinLIPID PANEL (REFL)2020-10-06 00:00:00* Test Item Value Reference Range Interpretation Comme nts CHOLESTEROL, TOTAL (test cod e = 2093-3) 138 mg/dL HDL CHOLESTEROL (test code = 2085-9) 52 mg/dL TRIGLYCERIDES (test code = 2571-8) 78 mg/dL LDL-CHOLESTEROL (test code = 91213-6) 70 mg/dL(calc) CHOL/HDLC RATIO (test code = 9830-1) 2.7 (calc) NON HDL CHOLESTEROL (test co de = 16733-9) 86 mg/dL(calc) Jordan TrotterCOMPREHENSIVE METABOLIC [id number] 00:00:00* Test Item Value Reference Range Interpretation Comme nts GLUCOSE (test code = 2345-7) 112 mg/dL UREA NITROGEN (BUN) (test code = 3094-0) 14 mg/dL CREATININE (test code = 2160-0) 0.71 mg/dL eGFR NON-AFR. UZBEK (test code = 93118-7) 123 mL/min/1.73m2 eGFR (test code = 86740-0) 143 mL/min/1.73m2 BUN/CREATININE RATIO (test code = 3097-3) NOT APPLICABLE (calc) SODIUM (test code = 2951-2) 141 mmol/L POTASSIUM (test code = 2823-3) 4.2 mmol/L CHLORIDE (test code = 2075-0) 108 mmol/L CARBON DIOXIDE (test code = 2027-9) 23 mmol/L CALCIUM (test code = 14258-3) 9.4 mg/dL PROTEIN, TOTAL (test code = 2885-2) 6.7 g/dL ALBUMIN (test code = 1751-7) 4.3 g/dL GLOBULIN (test code = 15877-7) 2.4 g/dL(calc) ALBUMIN/GLOBULIN RATIO (test code = 1759-0) 1.8 (calc) BILIRUBIN, TOTAL (test code = 1975-2) 0.3 mg/dL ALKALINE PHOSPHATASE (test code = 6768-6) 54 U/L AST (test code = 1920-8) 16 U/L ALT (test code = 1742-6) 17 U/L Jordan [id number] 00:00:00* Test Item Value Reference Range Interpretation Comme nts TSH (test code = 3016-3) 0.93 mIU/L Jordan TrotterHEMOGLOBIN [id number] 00:00:00* Test Item Value Reference Range Interpretation Comme rylan HEMOGLOBIN A1c (test code = 4548-4) 4.8 %oftotalHgb Jordan TrotterRPR (MONITOR) W/REFL [id number] 00:00:00* Test Item Value Reference Range Interpretation Comme rylan RPR (MONITOR) W/REFL TITER ( test code = 73785-3) NON-REACTIVE Jordan TrotterHIV 1/2 ANTIGEN/ANTIBODY,FOURTH GENERATION [id number] 00:00:00* Test Item Value Reference Range Interpretation Comme rylan HIV AG/AB, 4TH GEN (test cod e = 58931-1) NON-REACTIVE CBC (INCLUDES DIFF/PLT)2020-10-06 00:00:00* Test Item Value Reference Range Interpretation Comme rylan WHITE BLOOD CELL COUNT (test code = [...] cells/uL ABSOLUTE BAND NEUTROPHILS (test code = 11232-6) DNR cells/uL ABSOLUTE METAMYELOCYTES (vinod t code = 62122-3) DNR cells/uL ABSOLUTE MYELOCYTES (test code = 34038-3) DNR cells/uL ABSOLUTE PROMYELOCYTES (test code = 91918-6) DNR cells/uL ABSOLUTE LYMPHOCYTES (test code = 731-0) 1476 cells/uL ABSOLUTE MONOCYTES (test cod e = 742-7) 390 cells/uL ABSOLUTE EOSINOPHILS (test code = 711-2) 132 cells/uL ABSOLUTE BASOPHILS (test cod e = 704-7) 19 cells/uL ABSOLUTE BLASTS (test code = 63937-2) DNR cells/uL ABSOLUTE NUCLEATED RBC (test code = 23019-7) DNR cells/uL NEUTROPHILS (test code = 770-8) 57.1 % BAND NEUTROPHILS (test code = 764-1) DNR % METAMYELOCYTES (test code = 740-1) DNR % MYELOCYTES (test code = 749-2) DNR % PROMYELOCYTES (test code = 783-1) DNR % LYMPHOCYTES (test code = 736-9) 31.4 % REACTIVE LYMPHOCYTES (test code = 54601-7) DNR % MONOCYTES (test code = 5905-5) 8.3 % EOSINOPHILS (test code = 713-8) 2.8 % BASOPHILS (test code = 706-2) 0.4 % BLASTS (test code = 709-6) DNR % NUCLEATED RBC (test code = 67906-2) DNR /100WBC COMMENT(S) (test code = 8251-1) DNR LIPID PANEL (REFL)2020-10-06 00:00:00* Test Item Value Reference Range Interpretation Comme nts CHOLESTEROL, TOTAL (test cod e = 2093-3) 138 mg/dL HDL CHOLESTEROL (test code = 2085-9) 52 mg/dL TRIGLYCERIDES (test code = 2571-8) 78 mg/dL LDL-CHOLESTEROL (test code = 89913-7) 70 mg/dL(calc) CHOL/HDLC RATIO (test code = 9830-1) 2.7 (calc) NON HDL CHOLESTEROL (test co de = 59840-5) 86 mg/dL(calc) COMPREHENSIVE METABOLIC [id number] 00:00:00* Test Item Value Reference Range Interpretation Comme nts GLUCOSE (test code = 2345-7) 112 mg/dL UREA NITROGEN (BUN) (test code = 3094-0) 14 mg/dL CREATININE (test code = 2160-0) 0.71 mg/dL eGFR NON-AFR. UZBEK (test code = 43184-6) 123 mL/min/1.73m2 eGFR (test code = 36881-2) 143 mL/min/1.73m2 BUN/CREATININE RATIO (test code = 3097-3) NOT APPLICABLE (calc) SODIUM (test code = 2951-2) 141 mmol/L POTASSIUM (test code = 2823-3) 4.2 mmol/L CHLORIDE (test code = 2075-0) 108 mmol/L CARBON DIOXIDE (test code = 2027-9) 23 mmol/L CALCIUM (test code = 10210-8) 9.4 mg/dL PROTEIN, TOTAL (test code = 2885-2) 6.7 g/dL ALBUMIN (test code = 1751-7) 4.3 g/dL GLOBULIN (test code = 14792-2) 2.4 g/dL(calc) ALBUMIN/GLOBULIN RATIO (test code = 1759-0) 1.8 (calc) BILIRUBIN, TOTAL (test code = 1974-) 0.3 mg/dL ALKALINE PHOSPHATASE (test code = 6768-6) 54 U/L AST (test code = 1920-8) 16 U/L ALT (test code = 1742-6) 17 U/L [id number] 00:00:00* Test Item Value Reference Range Interpretation Comme nts TSH (test code = 3016-3) 0.93 mIU/L HEMOGLOBIN [id number] 00:00:00* Test Item Value Reference Range Interpretation Comme nts HEMOGLOBIN A1c (test code = 4548-4) 4.8 %oftotalHgb RPR (MONITOR) W/REFL [id number] 00:00:00* Test Item Value Reference Range Interpretation Comme nts RPR (MONITOR) W/REFL TITER ( test code = 00590-6) NON-REACTIVE HIV 1/2 ANTIGEN/ANTIBODY,FOURTH GENERATION [id number] 00:00:00* Test Item Value Reference Range Interpretation Comme nts HIV AG/AB, 4TH GEN (test cod e = 24709-0) NON-REACTIVE CBC (INCLUDES DIFF/PLT)2020-10-06 00:00:00* Test Item [...] cells/uL ABSOLUTE BAND NEUTROPHILS (test code = 49497-9) DNR cells/uL ABSOLUTE METAMYELOCYTES (vinod t code = 14607-0) DNR cells/uL ABSOLUTE MYELOCYTES (test code = 04467-8) DNR cells/uL ABSOLUTE PROMYELOCYTES (test code = 54214-3) DNR cells/uL ABSOLUTE LYMPHOCYTES (test code = 731-0) 1476 cells/uL ABSOLUTE MONOCYTES (test cod e = 742-7) 390 cells/uL ABSOLUTE EOSINOPHILS (test code = 711-2) 132 cells/uL ABSOLUTE BASOPHILS (test cod e = 704-7) 19 cells/uL ABSOLUTE BLASTS (test code = 01187-9) DNR cells/uL ABSOLUTE NUCLEATED RBC (test code = 38777-0) DNR cells/uL NEUTROPHILS (test code = 770-8) 57.1 % BAND NEUTROPHILS (test code = 764-1) DNR % METAMYELOCYTES (test code = 740-1) DNR % MYELOCYTES (test code = 749-2) DNR % PROMYELOCYTES (test code = 783-1) DNR % LYMPHOCYTES (test code = 736-9) 31.4 % REACTIVE LYMPHOCYTES (test code = 25809-4) DNR % MONOCYTES (test code = 5905-5) 8.3 % EOSINOPHILS (test code = 713-8) 2.8 % BASOPHILS (test code = 706-2) 0.4 % BLASTS (test code = 709-6) DNR % NUCLEATED RBC (test code = 30514-3) DNR /100WBC COMMENT(S) (test code = 8251-1) DNR LIPID PANEL (REFL)2020-10-06 00:00:00* Test Item Value Reference Range Interpretation Comme nts CHOLESTEROL, TOTAL (test cod e = 2093-3) 138 mg/dL HDL CHOLESTEROL (test code = 2085-9) 52 mg/dL TRIGLYCERIDES (test code = 2571-8) 78 mg/dL LDL-CHOLESTEROL (test code = 20352-5) 70 mg/dL(calc) CHOL/HDLC RATIO (test code = 9830-1) 2.7 (calc) NON HDL CHOLESTEROL (test co de = 94416-3) 86 mg/dL(calc) COMPREHENSIVE METABOLIC [id number] 00:00:00* Test Item Value Reference Range Interpretation Comme nts GLUCOSE (test code = 2345-7) 112 mg/dL UREA NITROGEN (BUN) (test code = 3094-0) 14 mg/dL CREATININE (test code = 2160-0) 0.71 mg/dL eGFR NON-AFR. UZBEK (test code = 81533-6) 123 mL/min/1.73m2 eGFR (test code = 78323-0) 143 mL/min/1.73m2 BUN/CREATININE RATIO (test code = 3097-3) NOT APPLICABLE (calc) SODIUM (test code = 2951-2) 141 mmol/L POTASSIUM (test code = 2823-3) 4.2 mmol/L CHLORIDE (test code = 2075-0) 108 mmol/L CARBON DIOXIDE (test code = 8-9) 23 mmol/L CALCIUM (test code = 96182-6) 9.4 mg/dL PROTEIN, TOTAL (test code = 2885-2) 6.7 g/dL ALBUMIN (test code = 1751-7) 4.3 g/dL GLOBULIN (test code = 90712-7) 2.4 g/dL(calc) ALBUMIN/GLOBULIN RATIO (test code = 1759-0) 1.8 (calc) BILIRUBIN, TOTAL (test code = 1975-2) 0.3 mg/dL ALKALINE PHOSPHATASE (test code = 6768-6) 54 U/L AST (test code = 1920-8) 16 U/L ALT (test code = 1742-6) 17 U/L [id number] 00:00:00* Test Item Value Reference Range Interpretation Comme nts TSH (test code = 3016-3) 0.93 mIU/L HEMOGLOBIN [id number] 00:00:00* Test Item Value Reference Range Interpretation Comme [facility] HEMOGLOBIN A1c (test code = 4548-4) 4.8 %oftotalHgb HIV 1/2 ANTIGEN/ANTIBODY,FOURTH GENERATION [id number] 00:00:00* Test Item Value Reference Range Interpretation Comme nts HIV AG/AB, 4TH GEN (test cod e = 32426-1) NON-REACTIVE Jordan TrotterRPR (MONITOR) W/REFL [id number] 00:00:00* Test Item Value Reference Range Interpretation Comme nts RPR (MONITOR) W/REFL TITER ( test code = 26865-3) NON-REACTIVE HIV 1/2 ANTIGEN/ANTIBODY,FOURTH GENERATION [id number] 00:00:00* Test Item Value Reference Range Interpretation Comme nts HIV AG/AB, 4TH GEN (test cod e = 36952-8) NON-REACTIVE CBC (INCLUDES DIFF/PLT)2020-10-06 00:00:00* Test Item [...] cells/uL ABSOLUTE BAND NEUTROPHILS (test code = 28777-4) DNR cells/uL ABSOLUTE METAMYELOCYTES (vinod t code = 01707-4) DNR cells/uL ABSOLUTE MYELOCYTES (test code = 25653-1) DNR cells/uL ABSOLUTE PROMYELOCYTES (test code = 62487-7) DNR cells/uL ABSOLUTE LYMPHOCYTES (test code = 731-0) 1476 cells/uL ABSOLUTE MONOCYTES (test cod e = 742-7) 390 cells/uL ABSOLUTE EOSINOPHILS (test code = 711-2) 132 cells/uL ABSOLUTE BASOPHILS (test cod e = 704-7) 19 cells/uL ABSOLUTE BLASTS (test code = 33045-3) DNR cells/uL ABSOLUTE NUCLEATED RBC (test code = 40001-0) DNR cells/uL NEUTROPHILS (test code = 770-8) 57.1 % BAND NEUTROPHILS (test code = 764-1) DNR % METAMYELOCYTES (test code = 740-1) DNR % MYELOCYTES (test code = 749-2) DNR % PROMYELOCYTES (test code = 783-1) DNR % LYMPHOCYTES (test code = 736-9) 31.4 % REACTIVE LYMPHOCYTES (test code = 36662-9) DNR % MONOCYTES (test code = 5905-5) 8.3 % EOSINOPHILS (test code = 713-8) 2.8 % BASOPHILS (test code = 706-2) 0.4 % BLASTS (test code = 709-6) DNR % NUCLEATED RBC (test code = 91861-8) DNR /100WBC COMMENT(S) (test code = 8251-1) DNR LIPID PANEL (REFL)2020-10-06 00:00:00* Test Item Value Reference Range Interpretation Comme nts CHOLESTEROL, TOTAL (test cod e = 2093-3) 138 mg/dL HDL CHOLESTEROL (test code = 2085-9) 52 mg/dL TRIGLYCERIDES (test code = 2571-8) 78 mg/dL LDL-CHOLESTEROL (test code = 30581-1) 70 mg/dL(calc) CHOL/HDLC RATIO (test code = 9830-1) 2.7 (calc) NON HDL CHOLESTEROL (test co de = 14270-0) 86 mg/dL(calc) COMPREHENSIVE METABOLIC [id number] 00:00:00* Test Item Value Reference Range Interpretation Comme nts GLUCOSE (test code = 2345-7) 112 mg/dL UREA NITROGEN (BUN) (test code = 3094-0) 14 mg/dL CREATININE (test code = 2160-0) 0.71 mg/dL eGFR NON-AFR. UZBEK (test code = 76039-5) 123 mL/min/1.73m2 eGFR (test code = 15359-8) 143 mL/min/1.73m2 BUN/CREATININE RATIO (test code = 3097-3) NOT APPLICABLE (calc) SODIUM (test code = 2951-2) 141 mmol/L POTASSIUM (test code = 2823-3) 4.2 mmol/L CHLORIDE (test code = 2075-0) 108 mmol/L CARBON DIOXIDE (test code = 8-9) 23 mmol/L CALCIUM (test code = 07563-8) 9.4 mg/dL PROTEIN, TOTAL (test code = 2885-2) 6.7 g/dL ALBUMIN (test code = 1751-7) 4.3 g/dL GLOBULIN (test code = 22024-3) 2.4 g/dL(calc) ALBUMIN/GLOBULIN RATIO (test code = 1759-0) 1.8 (calc) BILIRUBIN, TOTAL (test code = 1975-2) 0.3 mg/dL ALKALINE PHOSPHATASE (test code = 6768-6) 54 U/L AST (test code = 1920-8) 16 U/L ALT (test code = 1742-6) 17 U/L [id number] 00:00:00* Test Item Value Reference Range Interpretation Comme nts TSH (test code = 3016-3) 0.93 mIU/L HEMOGLOBIN [id number] 00:00:00* Test Item Value Reference Range Interpretation Comme nts HEMOGLOBIN A1c (test code = 4548-4) 4.8 %oftotalHgb RPR (MONITOR) W/REFL [id number] 00:00:00* Test Item Value Reference Range Interpretation Comme nts RPR (MONITOR) W/REFL TITER ( test code = 50658-9) NON-REACTIVE BV/VAGINITIS PANEL DNA [id number] 00:00:00* Test Item Value Reference Range Interpretation Comme nts TRICHOMONAS: (test code = 6568-0) NOT DETECTED GARDNERELLA: (test code = 6410-5) DETECTED SUZE: (test code = 72484-3) DETECTED Jordan Hoff AustinBV/VAGINITIS PANEL DNA [id number] 00:00:00* Test Item Value Reference Range Interpretation Comme nts TRICHOMONAS: (test code = 6568-0) NOT DETECTED GARDNERELLA: (test code = 6410-5) DETECTED SUZE: (test code = 55344-7) DETECTED Jordan F AustinBV/VAGINITIS PANEL DNA [id number] 00:00:00* Test Item Value Reference Range Interpretation Comme nts TRICHOMONAS: (test code = 6568-0) NOT DETECTED GARDNERELLA: (test code = 6410-5) DETECTED SUZE: (test code = 76166-3) DETECTED BV/VAGINITIS PANEL DNA [id number] 00:00:00* Test Item Value Reference Range Interpretation Comme nts TRICHOMONAS: (test code = 6568-0) NOT DETECTED GARDNERELLA: (test code = 6410-5) DETECTED SUZE: (test code = 98870-7) DETECTED BV/VAGINITIS PANEL DNA [id number] 00:00:00* Test Item Value Reference Range Interpretation Comme nts TRICHOMONAS: (test code = 6568-0) NOT DETECTED GARDNERELLA: (test code = 6410-5) DETECTED SUZE: (test code = 57544-1) DETECTED BV/VAGINITIS PANEL DNA [id number] 00:00:00* Test Item Value Reference Range Interpretation Comme nts TRICHOMONAS: (test code = 6568-0) NOT DETECTED GARDNERELLA: (test code = 6410-5) DETECTED SUZE: (test code = 33608-2) NOT DETECTED Jordan Hoff AustinBV/VAGINITIS PANEL DNA [id number] 00:00:00* Test Item Value Reference Range Interpretation Comme nts TRICHOMONAS: (test code = 6568-0) NOT DETECTED GARDNERELLA: (test code = 6410-5) DETECTED SUZE: (test code = 49082-3) NOT DETECTED Jordan F AustinBV/VAGINITIS PANEL DNA [id number] 00:00:00* Test Item Value Reference Range Interpretation Comme nts TRICHOMONAS: (test code = 6568-0) NOT DETECTED GARDNERELLA: (test code = 6410-5) DETECTED SUZE: (test code = 44117-3) NOT DETECTED BV/VAGINITIS PANEL DNA [id number] 00:00:00* Test Item Value Reference Range Interpretation Comme nts TRICHOMONAS: (test code = 6568-0) NOT DETECTED GARDNERELLA: (test code = 6410-5) DETECTED SUZE: (test code = 34604-1) NOT DETECTED BV/VAGINITIS PANEL DNA [id number] 00:00:00* Test Item Value Reference Range Interpretation Comme nts TRICHOMONAS: (test code = 6568-0) NOT DETECTED GARDNERELLA: (test code = 6410-5) DETECTED SUZE: (test code = 10111-1) NOT DETECTED RPR (MONITOR) W/REFL [id number] 00:00:00* Test Item Value Reference Range Interpretation Comme nts RPR (MONITOR) W/REFL TITER ( test code = 00092-6) NON-REACTIVE Jordan TrotterCHLAMYDIA TRACHOMATIS RNA, [id number] 00:00:00* Test Item Value Reference Range Interpretation Comme nts CHLAMYDIA TRACHOMATIS RNA, T MA, UROGENITAL (test code = 93774-7) NOT DETECTED Jordan Hoff AustinHIV 1/2 ANTIGEN/ANTIBODY,FOURTH GENERATION [id number] 00:00:00* Test Item Value Reference Range Interpretation Comme nts HIV AG/AB, 4TH GEN (test cod e = 80380-0) NON-REACTIVE Jordan TrotterNEISSERIA GONORRHOEAE RNA, [id number] 00:00:00* Test Item Value Reference Range Interpretation Comme nts NEISSERIA GONORRHOEAE RNA, T MA, UROGENITAL (test code = 82222-3) NOT DETECTED Jordan Hoff AustinHEPATITIS PANEL, [id number] 00:00:00* Test Item Value Reference Range Interpretation Comme nts HEPATITIS A AB, TOTAL (test code = 85125-8) REACTIVE HEPATITIS B SURFACE ANTIBODY QL (test code = 02599-6) NON-REACTIVE HEPATITIS B SURFACE ANTIGEN (test code = 5196-1) NON-REACTIVE CONFIRMATION (test code = 7905-3) DNR HEPATITIS B CORE AB TOTAL (t est code = 02979-1) NON-REACTIVE HEPATITIS C ANTIBODY (test c ode = 74956-8) NON-REACTIVE SIGNAL TO CUT-OFF (test code = 88357-9) 0.02 Jordan Hoff AustinRPR (MONITOR) W/REFL [id number] 00:00:00* Test Item Value Reference Range Interpretation Comme nts RPR (MONITOR) W/REFL TITER ( test code = 56055-6) NON-REACTIVE Jordan Hoff AustinHIV 1/2 ANTIGEN/ANTIBODY,FOURTH GENERATION [id number] 00:00:00* Test Item Value Reference Range Interpretation Comme nts HIV AG/AB, 4TH GEN (test cod e = 25781-7) NON-REACTIVE Jordan F AustinCHLAMYDIA TRACHOMATIS RNA, [id number] 00:00:00* Test Item Value Reference Range Interpretation Comme nts CHLAMYDIA TRACHOMATIS RNA, T MA, UROGENITAL (test code = 18130-4) NOT DETECTED COMMENT (test code = ) HEPATITIS PANEL, [id number] 00:00:00* Test Item Value Reference Range Interpretation Comme nts HEPATITIS A AB, TOTAL (test code = 85553-3) REACTIVE HEPATITIS B SURFACE ANTIBODY QL (test code = 64550-3) NON-REACTIVE HEPATITIS B SURFACE ANTIGEN (test code = 5196-1) NON-REACTIVE CONFIRMATION (test code = 7905-3) DNR HEPATITIS B CORE AB TOTAL (t est code = 14259-1) NON-REACTIVE HEPATITIS C ANTIBODY (test c ode = 26463-2) NON-REACTIVE SIGNAL TO CUT-OFF (test code = 47400-0) 0.02 NEISSERIA GONORRHOEAE RNA, [id number] 00:00:00* Test Item Value Reference Range Interpretation Comme nts NEISSERIA GONORRHOEAE RNA, T MA, UROGENITAL (test code = 18485-4) NOT DETECTED COMMENT (test code = ) RPR (MONITOR) W/REFL [id number] 00:00:00* Test Item Value Reference Range Interpretation Comme nts RPR (MONITOR) W/REFL TITER ( test code = 67305-0) NON-REACTIVE CHLAMYDIA TRACHOMATIS RNA, [id number] 00:00:00* Test Item Value Reference Range Interpretation Comme nts CHLAMYDIA TRACHOMATIS RNA, T MA, UROGENITAL (test code = 82166-9) NOT DETECTED Jordan F AustinCHLAMYDIA TRACHOMATIS RNA, [id number] 00:00:00* Test Item Value Reference Range Interpretation Comme nts CHLAMYDIA TRACHOMATIS RNA, T MA, UROGENITAL (test code = 24082-2) NOT DETECTED COMMENT (test code = ) HIV 1/2 ANTIGEN/ANTIBODY,FOURTH GENERATION [id number] 00:00:00* Test Item Value Reference Range Interpretation Comme nts HIV AG/AB, 4TH GEN (test cod e = 61922-4) NON-REACTIVE NEISSERIA GONORRHOEAE RNA, [id number] 00:00:00* Test Item Value Reference Range Interpretation Comme nts NEISSERIA GONORRHOEAE RNA, T MA, UROGENITAL (test code = 02248-6) NOT DETECTED COMMENT (test code = ) HEPATITIS PANEL, [id number] 00:00:00* Test Item Value Reference Range Interpretation Comme nts HEPATITIS A AB, TOTAL (test code = 34569-4) REACTIVE HEPATITIS B SURFACE ANTIBODY QL (test code = 98557-8) NON-REACTIVE HEPATITIS B SURFACE ANTIGEN (test code = 5196-1) NON-REACTIVE CONFIRMATION (test code = 7905-3) DNR HEPATITIS B CORE AB TOTAL (t est code = 16907-9) NON-REACTIVE HEPATITIS C ANTIBODY (test c ode = 34447-1) NON-REACTIVE SIGNAL TO CUT-OFF (test code = 29147-0) 0.02 HEPATITIS PANEL, [id number] 00:00:00* Test Item Value Reference Range Interpretation Comme nts HEPATITIS A AB, TOTAL (test code = 49487-4) REACTIVE HEPATITIS B SURFACE ANTIBODY QL (test code = 41958-0) NON-REACTIVE HEPATITIS B SURFACE ANTIGEN (test code = 5196-1) NON-REACTIVE CONFIRMATION (test code = 7905-3) DNR HEPATITIS B CORE AB TOTAL (t est code = 79902-4) NON-REACTIVE HEPATITIS C ANTIBODY (test c ode = 84934-8) NON-REACTIVE SIGNAL TO CUT-OFF (test code = 34137-3) 0.02 Jordan Hoff AustinRPR (MONITOR) W/REFL [id number] 00:00:00* Test Item Value Reference Range Interpretation Comme nts RPR (MONITOR) W/REFL TITER ( test code = 62869-4) NON-REACTIVE CHLAMYDIA TRACHOMATIS RNA, [id number] 00:00:00* Test Item Value Reference Range Interpretation Comme nts CHLAMYDIA TRACHOMATIS RNA, T MA, UROGENITAL (test code = 71904-8) NOT DETECTED COMMENT (test code = ) HIV 1/2 ANTIGEN/ANTIBODY,FOURTH GENERATION [id number] 00:00:00* Test Item Value Reference Range Interpretation Comme nts HIV AG/AB, 4TH GEN (test cod e = 67898-4) NON-REACTIVE NEISSERIA GONORRHOEAE RNA, [id number] 00:00:00* Test Item Value Reference Range Interpretation Comme nts NEISSERIA GONORRHOEAE RNA, T MA, UROGENITAL (test code = 93147-9) NOT DETECTED COMMENT (test code = ) HEPATITIS PANEL, [id number] 00:00:00* Test Item Value Reference Range Interpretation Comme nts HEPATITIS A AB, TOTAL (test code = 52325-2) REACTIVE HEPATITIS B SURFACE ANTIBODY QL (test code = 74954-6) NON-REACTIVE HEPATITIS B SURFACE ANTIGEN (test code = 5196-1) NON-REACTIVE CONFIRMATION (test code = 7905-3) DNR HEPATITIS B CORE AB TOTAL (t est code = 94997-1) NON-REACTIVE HEPATITIS C ANTIBODY (test c ode = 96072-5) NON-REACTIVE SIGNAL TO CUT-OFF (test code = 82449-0) 0.02 RPR (MONITOR) W/REFL [id number] 00:00:00* Test Item Value Reference Range Interpretation Comme nts RPR (MONITOR) W/REFL TITER ( test code = 35522-0) NON-REACTIVE HIV 1/2 ANTIGEN/ANTIBODY,FOURTH GENERATION [id number] 00:00:00* Test Item Value Reference Range Interpretation Comme nts HIV AG/AB, 4TH GEN (test cod e = 76169-3) NON-REACTIVE NEISSERIA GONORRHOEAE RNA, [id number] 00:00:00* Test Item Value Reference Range Interpretation Comme nts NEISSERIA GONORRHOEAE RNA, T MA, UROGENITAL (test code = 77104-3) NOT DETECTED Jordan F AustinGC AND CHLAMYDIA, AMPLIFIED, [id number] 00:00:00* Test Item Value Reference Range Interpretation Comme nts GONORRHEA, TMA (test code = 20685) NEGATIVE CHLAMYDIA, TMA (test code = 76470) NEGATIVE Jordan F AustinGC AND CHLAMYDIA, AMPLIFIED, [id number] 00:00:00* Test Item Value Reference Range Interpretation Comme nts GONORRHEA, TMA (test code = 78370) NEGATIVE CHLAMYDIA, TMA (test code = 26329) NEGATIVE Jordan F AustinGC AND CHLAMYDIA, AMPLIFIED, [id number] 00:00:00* Test Item Value Reference Range Interpretation Comme nts GONORRHEA, TMA (test code = 13626) NEGATIVE CHLAMYDIA, TMA (test code = 96040) NEGATIVE GC AND CHLAMYDIA, AMPLIFIED, [id number] 00:00:00* Test Item Value Reference Range Interpretation Comme nts GONORRHEA, TMA (test code = 08694) NEGATIVE CHLAMYDIA, TMA (test code = 99714) NEGATIVE GC AND CHLAMYDIA, AMPLIFIED, [id number] 00:00:00* Test Item Value Reference Range Interpretation Comme nts GONORRHEA, TMA (test code = 82898) NEGATIVE CHLAMYDIA, TMA (test code = 69627) NEGATIVE CT/NG, TMA, SIMPLESWAB [ADDED]2020-02-13 00:00:00* Test Item Value Reference Range Interpretation Comme nts CHLAMYDIA, TMA (test code = 00020) TEST NOT PERFORMED GONORRHEA, TMA (test code = 40112) TEST NOT PERFORMED Jordan F AustinCT/NG, TMA, SIMPLESWAB [ADDED]2020-02-13 00:00:00* Test Item Value Reference Range Interpretation Comme nts CHLAMYDIA, TMA (test code = 64953) TEST NOT PERFORMED GONORRHEA, TMA (test code = 14908) TEST NOT PERFORMED Jordan F AustinCT/NG, TMA, SIMPLESWAB [ADDED]2020-02-13 00:00:00* Test Item Value Reference Range Interpretation Comme nts CHLAMYDIA, TMA (test code = 65792) TEST NOT PERFORMED GONORRHEA, TMA (test code = 86240) TEST NOT PERFORMED CT/NG, TMA, SIMPLESWAB [ADDED]2020-02-13 00:00:00* Test Item Value Reference Range Interpretation Comme nts CHLAMYDIA, TMA (test code = 27682) TEST NOT PERFORMED GONORRHEA, TMA (test code = 44202) TEST NOT PERFORMED CT/NG, TMA, SIMPLESWAB [ADDED]2020-02-13 00:00:00* Test Item Value Reference Range Interpretation Comme nts CHLAMYDIA, TMA (test code = 01540) TEST NOT PERFORMED GONORRHEA, TMA (test code = 96938) TEST NOT PERFORMED GC AND CHLAMYDIA AMPLIFIED, [id number] 00:00:00* Test Item Value Reference Range Interpretation Comme nts CHLAMYDIA, TMA (test code = 03077) TEST NOT PERFORMED GONORRHEA, TMA (test code = 41550) TEST NOT PERFORMED Jordan F AustinGC AND CHLAMYDIA, AMPLIFIED, [id number] 00:00:00* Test Item Value Reference Range Interpretation Comme nts GONORRHEA, TMA (test code = 63101) TEST NOT PERFORMED CHLAMYDIA, TMA (test code = 46090) TEST NOT PERFORMED Jordan F AustinGC AND CHLAMYDIA AMPLIFIED, [id number] 00:00:00* Test Item Value Reference Range Interpretation Comme nts CHLAMYDIA, TMA (test code = 33792) TEST NOT PERFORMED GONORRHEA, TMA (test code = 42380) TEST NOT PERFORMED Jordan F AustinGC AND CHLAMYDIA, AMPLIFIED, [id number] 00:00:00* Test Item Value Reference Range Interpretation Comme nts GONORRHEA, TMA (test code = 70465) TEST NOT PERFORMED CHLAMYDIA, TMA (test code = 76648) TEST NOT PERFORMED GC AND CHLAMYDIA AMPLIFIED, [id number] 00:00:00* Test Item Value Reference Range Interpretation Comme nts CHLAMYDIA, TMA (test code = 35349) TEST NOT PERFORMED GONORRHEA, TMA (test code = 34121) TEST NOT PERFORMED GC AND CHLAMYDIA, AMPLIFIED, [id number] 00:00:00* Test Item Value Reference Range Interpretation Comme nts GONORRHEA, TMA (test code = 42627) TEST NOT PERFORMED CHLAMYDIA, TMA (test code = 08937) TEST NOT PERFORMED GC AND CHLAMYDIA AMPLIFIED, [id number] 00:00:00* Test Item Value Reference Range Interpretation Comme nts CHLAMYDIA, TMA (test code = 54814) TEST NOT PERFORMED GONORRHEA, TMA (test code = 35081) TEST NOT PERFORMED GC AND CHLAMYDIA, AMPLIFIED, [id number] 00:00:00* Test Item Value Reference Range Interpretation Comme nts GONORRHEA, TMA (test code = 93456) TEST NOT PERFORMED CHLAMYDIA, TMA (test code = 76050) TEST NOT PERFORMED GC AND CHLAMYDIA AMPLIFIED, [id number] 00:00:00* Test Item Value Reference Range Interpretation Comme nts CHLAMYDIA, TMA (test code = 04889) TEST NOT PERFORMED GONORRHEA, TMA (test code = 03340) TEST NOT PERFORMED GC AND CHLAMYDIA, AMPLIFIED, [id number] 00:00:00* Test Item Value Reference Range Interpretation Comme nts GONORRHEA, TMA (test code = 25994) TEST NOT PERFORMED CHLAMYDIA, TMA (test code = 54191) TEST NOT PERFORMED Jordan F AustinVAGINAL PATHOGENS DNA [id number] 00:00:00* Test Item Value Reference Range Interpretation Comme nts SUZE SPECIES (test code = 49223) NEGATIVE G. VAGINALIS (test code = 51137) NEGATIVE T. VAGINALIS (test code = 22798) NEGATIVE Jordan Hoff AustinVAGINAL PATHOGENS DNA [id number] 00:00:00* Test Item Value Reference Range Interpretation Comme nts SUZE SPECIES (test code = 63718) NEGATIVE G. VAGINALIS (test code = 97912) NEGATIVE T. VAGINALIS (test code = 45523) NEGATIVE Jordan F AustinVAGINAL PATHOGENS DNA [id number] 00:00:00* Test Item Value Reference Range Interpretation Comme nts SUZE SPECIES (test code = 31395) NEGATIVE G. VAGINALIS (test code = 96603) NEGATIVE T. VAGINALIS (test code = 93552) NEGATIVE VAGINAL PATHOGENS DNA [id number] 00:00:00* Test Item Value Reference Range Interpretation Comme nts SUZE SPECIES (test code = 20748) NEGATIVE G. VAGINALIS (test code = 40162) NEGATIVE T. VAGINALIS (test code = 25750) NEGATIVE VAGINAL PATHOGENS DNA [id number] 00:00:00* Test Item Value Reference Range Interpretation Comme nts SUZE SPECIES (test code = 46305) NEGATIVE G. VAGINALIS (test code = 56552) NEGATIVE T. VAGINALIS (test code = 30265) NEGATIVE SARS-CoV-2 (COVID-19) by RT-PCR (HIGH RISK)2019-12-21 00:00:00* Test Item Value Reference Range Interpretation Comme nts SARS-CoV-2 INTERPRETATION (test code = 23103) NEGATIVE SOURCE (test code = 41747) NASOPHARYNGEAL Jordan F FafuadZWOY-LkN-2 (COVID-19) by RT-PCR (HIGH RISK)2019-12-21 00:00:00* Test Item Value Reference Range Interpretation Comme nts SARS-CoV-2 INTERPRETATION (test code = 99900) NEGATIVE SOURCE (test code = 80026) NASOPHARYNGEAL Jordan F [id number] (COVID-19) by RT-PCR (HIGH RISK)2019-12-21 00:00:00* Test Item Value Reference Range Interpretation Comme nts SARS-CoV-2 INTERPRETATION (test code = 13376) NEGATIVE SOURCE (test code = 12772) NASOPHARYNGEAL SARS-CoV-2 (COVID-19) by RT-PCR (HIGH RISK)2019-12-21 00:00:00* Test Item Value Reference Range Interpretation Comme nts SARS-CoV-2 INTERPRETATION (test code = 94078) NEGATIVE SOURCE (test code = 99468) NASOPHARYNGEAL SARS-CoV-2 (COVID-19) by RT-PCR (HIGH RISK)2019-12-21 00:00:00* Test Item Value Reference Range Interpretation Comme nts SARS-CoV-2 INTERPRETATION (test code = 38670) NEGATIVE SOURCE (test code = 65180) NASOPHARYNGEAL COMPREHENSIVE METABOLIC [id number] 00:00:00* Test Item Value Reference Range Interpretation Comme nts GLUCOSE (test code = 2345-7) 113 mg/dL UREA NITROGEN (BUN) (test code = 3094-0) 12 mg/dL CREATININE (test code = 2160-0) 0.62 mg/dL eGFR NON-AFR. UZBEK (test code = 58061-2) 131 mL/min/1.73m2 eGFR (test code = 84686-2) 152 mL/min/1.73m2 BUN/CREATININE RATIO (test code = 3097-3) NOT APPLICABLE (calc) SODIUM (test code = 2951-2) 138 mmol/L POTASSIUM (test code = 2823-3) 3.9 mmol/L CHLORIDE (test code = 2075-0) 105 mmol/L CARBON DIOXIDE (test code = 2027-9) 26 mmol/L CALCIUM (test code = 79518-9) 9.5 mg/dL PROTEIN, TOTAL (test code = 2885-2) 7.1 g/dL ALBUMIN (test code = 1751-7) 4.7 g/dL GLOBULIN (test code = 04964-8) 2.4 g/dL(calc) ALBUMIN/GLOBULIN RATIO (test code = 1759-0) 2.0 (calc) BILIRUBIN, TOTAL (test code = 1975-2) 1.1 mg/dL ALKALINE PHOSPHATASE (test code = 6768-6) 53 U/L AST (test code = 1920-8) 13 U/L ALT (test code = 1742-6) 10 U/L Jordan F AustinLIPID [id number] 00:00:00* Test Item Value Reference Range Interpretation Comme nts CHOLESTEROL, TOTAL (test cod e = 2093-3) 141 mg/dL HDL CHOLESTEROL (test code = 2085-9) 54 mg/dL TRIGLYCERIDES (test code = 2571-8) 62 mg/dL LDL-CHOLESTEROL (test code = 49011-0) 73 mg/dL(calc) CHOL/HDLC RATIO (test code = 9830-1) 2.6 (calc) NON HDL CHOLESTEROL (test co de = 30162-9) 87 mg/dL(calc) Jordan TrotterHEMOGLOBIN [id number] 00:00:00* Test Item Value Reference Range Interpretation Comme nts HEMOGLOBIN A1c (test code = 4548-4) 5.0 %oftotalHgb Jordan TrotterCBC (INCLUDES DIFF/PLT)2019-11-06 00:00:00* Test Item Value Reference [...] cells/uL ABSOLUTE BAND NEUTROPHILS (test code = 99694-3) DNR cells/uL ABSOLUTE METAMYELOCYTES (vinod t code = 48181-0) DNR cells/uL ABSOLUTE MYELOCYTES (test code = 06881-2) DNR cells/uL ABSOLUTE PROMYELOCYTES (test code = 48045-4) DNR cells/uL ABSOLUTE LYMPHOCYTES (test code = 731-0) 2268 cells/uL ABSOLUTE MONOCYTES (test cod e = 742-7) 622 cells/uL ABSOLUTE EOSINOPHILS (test code = 711-2) 160 cells/uL ABSOLUTE BASOPHILS (test cod e = 704-7) 50 cells/uL ABSOLUTE BLASTS (test code = 18439-1) DNR cells/uL ABSOLUTE NUCLEATED RBC (test code = 73411-0) DNR cells/uL NEUTROPHILS (test code = 770-8) 63.1 % BAND NEUTROPHILS (test code = 764-1) DNR % METAMYELOCYTES (test code = 740-1) DNR % MYELOCYTES (test code = 749-2) DNR % PROMYELOCYTES (test code = 783-1) DNR % LYMPHOCYTES (test code = 736-9) 27.0 % REACTIVE LYMPHOCYTES (test code = 28228-5) DNR % MONOCYTES (test code = 5905-5) 7.4 % EOSINOPHILS (test code = 713-8) 1.9 % BASOPHILS (test code = 706-2) 0.6 % BLASTS (test code = 709-6) DNR % NUCLEATED RBC (test code = 48278-2) DNR /100WBC COMMENT(S) (test code = 8251-1) DNR Jordan F JvCOMPREHENSIVE METABOLIC [id number] 00:00:00* Test Item Value Reference Range Interpretation Comme nts GLUCOSE (test code = 2345-7) 113 mg/dL UREA NITROGEN (BUN) (test code = 3094-0) 12 mg/dL CREATININE (test code = 2160-0) 0.62 mg/dL eGFR NON-AFR. UZBEK (test code = 78065-2) 131 mL/min/1.73m2 eGFR (test code = 65383-1) 152 mL/min/1.73m2 BUN/CREATININE RATIO (test code = 3097-3) NOT APPLICABLE (calc) SODIUM (test code = 2951-2) 138 mmol/L POTASSIUM (test code = 2823-3) 3.9 mmol/L CHLORIDE (test code = 2075-0) 105 mmol/L CARBON DIOXIDE (test code = 8-9) 26 mmol/L CALCIUM (test code = 97073-0) 9.5 mg/dL PROTEIN, TOTAL (test code = 2885-2) 7.1 g/dL ALBUMIN (test code = 1751-7) 4.7 g/dL GLOBULIN (test code = 90331-3) 2.4 g/dL(calc) ALBUMIN/GLOBULIN RATIO (test code = 1759-0) 2.0 (calc) BILIRUBIN, TOTAL (test code = 1975-2) 1.1 mg/dL ALKALINE PHOSPHATASE (test code = 6768-6) 53 U/L AST (test code = 1920-8) 13 U/L ALT (test code = 1742-6) 10 U/L Jordan TrotterLIPID [id number] 00:00:00* Test Item Value Reference Range Interpretation Comme nts CHOLESTEROL, TOTAL (test cod e = 2093-3) 141 mg/dL HDL CHOLESTEROL (test code = 2085-9) 54 mg/dL TRIGLYCERIDES (test code = 2571-8) 62 mg/dL LDL-CHOLESTEROL (test code = 73867-8) 73 mg/dL(calc) CHOL/HDLC RATIO (test code = 9830-1) 2.6 (calc) NON HDL CHOLESTEROL (test co de = 80457-2) 87 mg/dL(calc) Jordan TrotterHEMOGLOBIN [id number] 00:00:00* Test Item Value Reference Range Interpretation [...] cells/uL ABSOLUTE BAND NEUTROPHILS (test code = 64051-1) DNR cells/uL ABSOLUTE METAMYELOCYTES (vinod t code = 23257-6) DNR cells/uL ABSOLUTE MYELOCYTES (test code = 69636-5) DNR cells/uL ABSOLUTE PROMYELOCYTES (test code = 68600-1) DNR cells/uL ABSOLUTE LYMPHOCYTES (test code = 731-0) 2268 cells/uL ABSOLUTE MONOCYTES (test cod e = 742-7) 622 cells/uL ABSOLUTE EOSINOPHILS (test code = 711-2) 160 cells/uL ABSOLUTE BASOPHILS (test cod e = 704-7) 50 cells/uL ABSOLUTE BLASTS (test code = 73329-0) DNR cells/uL ABSOLUTE NUCLEATED RBC (test code = 31344-1) DNR cells/uL NEUTROPHILS (test code = 770-8) 63.1 % BAND NEUTROPHILS (test code = 764-1) DNR % METAMYELOCYTES (test code = 740-1) DNR % MYELOCYTES (test code = 749-2) DNR % PROMYELOCYTES (test code = 783-1) DNR % LYMPHOCYTES (test code = 736-9) 27.0 % REACTIVE LYMPHOCYTES (test code = 40573-9) DNR % MONOCYTES (test code = 5905-5) 7.4 % EOSINOPHILS (test code = 713-8) 1.9 % BASOPHILS (test code = 706-2) 0.6 % BLASTS (test code = 709-6) DNR % NUCLEATED RBC (test code = 94820-7) DNR /100WBC COMMENT(S) (test code = 8251-1) DNR HEMOGLOBIN [id number] 00:00:00* Test Item Value Reference Range Interpretation Comme nts HEMOGLOBIN A1c (test code = 4548-4) 5.0 %oftotalHgb Jordan F AustinCOMPREHENSIVE METABOLIC [id number] 00:00:00* Test Item Value Reference Range Interpretation Comme nts GLUCOSE (test code = 2345-7) 113 mg/dL UREA NITROGEN (BUN) (test code = 3094-0) 12 mg/dL CREATININE (test code = 2160-0) 0.62 mg/dL eGFR NON-AFR. UZBEK (test code = 71717-5) 131 mL/min/1.73m2 eGFR (test code = 54216-1) 152 mL/min/1.73m2 BUN/CREATININE RATIO (test code = 3097-3) NOT APPLICABLE (calc) SODIUM (test code = 2951-2) 138 mmol/L POTASSIUM (test code = 2823-3) 3.9 mmol/L CHLORIDE (test code = 5-0) 105 mmol/L CARBON DIOXIDE (test code = 2027-9) 26 mmol/L CALCIUM (test code = 65991-1) 9.5 mg/dL PROTEIN, TOTAL (test code = 2885-2) 7.1 g/dL ALBUMIN (test code = 1751-7) 4.7 g/dL GLOBULIN (test code = 02036-1) 2.4 g/dL(calc) ALBUMIN/GLOBULIN RATIO (test code = 1759-0) 2.0 (calc) BILIRUBIN, TOTAL (test code = 1975-2) 1.1 mg/dL ALKALINE PHOSPHATASE (test code = 6768-6) 53 U/L AST (test code = 1920-8) 13 U/L ALT (test code = 1742-6) 10 U/L LIPID [id number] 00:00:00* Test Item Value Reference Range Interpretation Comme nts CHOLESTEROL, TOTAL (test cod e = 2092-3) 141 mg/dL HDL CHOLESTEROL (test code = 2084-9) 54 mg/dL TRIGLYCERIDES (test code = 2571-8) 62 mg/dL LDL-CHOLESTEROL (test code = 97290-4) 73 mg/dL(calc) CHOL/HDLC RATIO (test code = 9830-1) 2.6 (calc) NON HDL CHOLESTEROL (test co de = 63659-2) 87 mg/dL(calc) HEMOGLOBIN [id number] 00:00:00* Test Item Value Reference Range Interpretation [...] cells/uL ABSOLUTE BAND NEUTROPHILS (test code = 69980-8) DNR cells/uL ABSOLUTE METAMYELOCYTES (vinod t code = 11811-0) DNR cells/uL ABSOLUTE MYELOCYTES (test code = 67381-9) DNR cells/uL ABSOLUTE PROMYELOCYTES (test code = 39252-2) DNR cells/uL ABSOLUTE LYMPHOCYTES (test code = 731-0) 2268 cells/uL ABSOLUTE MONOCYTES (test cod e = 742-7) 622 cells/uL ABSOLUTE EOSINOPHILS (test code = 711-2) 160 cells/uL ABSOLUTE BASOPHILS (test cod e = 704-7) 50 cells/uL ABSOLUTE BLASTS (test code = 09496-6) DNR cells/uL ABSOLUTE NUCLEATED RBC (test code = 73033-0) DNR cells/uL NEUTROPHILS (test code = 770-8) 63.1 % BAND NEUTROPHILS (test code = 764-1) DNR % METAMYELOCYTES (test code = 740-1) DNR % MYELOCYTES (test code = 749-2) DNR % PROMYELOCYTES (test code = 783-1) DNR % LYMPHOCYTES (test code = 736-9) 27.0 % REACTIVE LYMPHOCYTES (test code = 46139-2) DNR % MONOCYTES (test code = 5905-5) 7.4 % EOSINOPHILS (test code = 713-8) 1.9 % BASOPHILS (test code = 706-2) 0.6 % BLASTS (test code = 709-6) DNR % NUCLEATED RBC (test code = 98845-5) DNR /100WBC COMMENT(S) (test code = 8251-1) DNR COMPREHENSIVE METABOLIC [id number] 00:00:00* Test Item Value Reference Range Interpretation Comme nts GLUCOSE (test code = 2345-7) 113 mg/dL UREA NITROGEN (BUN) (test code = 3094-0) 12 mg/dL CREATININE (test code = 2160-0) 0.62 mg/dL eGFR NON-AFR. UZBEK (test code = 68430-5) 131 mL/min/1.73m2 eGFR (test code = 12649-9) 152 mL/min/1.73m2 BUN/CREATININE RATIO (test code = 3097-3) NOT APPLICABLE (calc) SODIUM (test code = 2951-2) 138 mmol/L POTASSIUM (test code = 2823-3) 3.9 mmol/L CHLORIDE (test code = 2075-0) 105 mmol/L CARBON DIOXIDE (test code = 2027-9) 26 mmol/L CALCIUM (test code = 83836-8) 9.5 mg/dL PROTEIN, TOTAL (test code = 2885-2) 7.1 g/dL ALBUMIN (test code = 1751-7) 4.7 g/dL GLOBULIN (test code = 48518-9) 2.4 g/dL(calc) ALBUMIN/GLOBULIN RATIO (test code = 1759-0) 2.0 (calc) BILIRUBIN, TOTAL (test code = 1975-2) 1.1 mg/dL ALKALINE PHOSPHATASE (test code = 6768-6) 53 U/L AST (test code = 1920-8) 13 U/L ALT (test code = 1742-6) 10 U/L LIPID [id number] 00:00:00* Test Item Value Reference Range Interpretation Comme nts CHOLESTEROL, TOTAL (test cod e = 2093-3) 141 mg/dL HDL CHOLESTEROL (test code = 5-9) 54 mg/dL TRIGLYCERIDES (test code = 2571-8) 62 mg/dL LDL-CHOLESTEROL (test code = 54594-0) 73 mg/dL(calc) CHOL/HDLC RATIO (test code = 9830-1) 2.6 (calc) NON HDL CHOLESTEROL (test co de = 69408-1) 87 mg/dL(calc) HEMOGLOBIN [id number] 00:00:00* Test Item Value Reference Range Interpretation [...] cells/uL ABSOLUTE BAND NEUTROPHILS (test code = 73660-9) DNR cells/uL ABSOLUTE METAMYELOCYTES (vinod t code = 77967-6) DNR cells/uL ABSOLUTE MYELOCYTES (test code = 72579-5) DNR cells/uL ABSOLUTE PROMYELOCYTES (test code = 15367-1) DNR cells/uL ABSOLUTE LYMPHOCYTES (test code = 731-0) 2268 cells/uL ABSOLUTE MONOCYTES (test cod e = 742-7) 622 cells/uL ABSOLUTE EOSINOPHILS (test code = 711-2) 160 cells/uL ABSOLUTE BASOPHILS (test cod e = 704-7) 50 cells/uL ABSOLUTE BLASTS (test code = 07812-9) DNR cells/uL ABSOLUTE NUCLEATED RBC (test code = 82687-3) DNR cells/uL NEUTROPHILS (test code = 770-8) 63.1 % BAND NEUTROPHILS (test code = 764-1) DNR % METAMYELOCYTES (test code = 740-1) DNR % MYELOCYTES (test code = 749-2) DNR % PROMYELOCYTES (test code = 783-1) DNR % LYMPHOCYTES (test code = 736-9) 27.0 % REACTIVE LYMPHOCYTES (test code = 65717-8) DNR % MONOCYTES (test code = 5905-5) 7.4 % EOSINOPHILS (test code = 713-8) 1.9 % BASOPHILS (test code = 706-2) 0.6 % BLASTS (test code = 709-6) DNR % NUCLEATED RBC (test code = 20385-4) DNR /100WBC COMMENT(S) (test code = 8251-1) DNR COMPREHENSIVE METABOLIC [id number] 00:00:00* Test Item Value Reference Range Interpretation Comme nts GLUCOSE (test code = 2345-7) 113 mg/dL UREA NITROGEN (BUN) (test code = 3094-0) 12 mg/dL CREATININE (test code = 2160-0) 0.62 mg/dL eGFR NON-AFR. UZBEK (test code = 33313-2) 131 mL/min/1.73m2 eGFR (test code = 47172-1) 152 mL/min/1.73m2 BUN/CREATININE RATIO (test code = 3097-3) NOT APPLICABLE (calc) SODIUM (test code = 2951-2) 138 mmol/L POTASSIUM (test code = 2823-3) 3.9 mmol/L CHLORIDE (test code = 2075-0) 105 mmol/L CARBON DIOXIDE (test code = 2027-9) 26 mmol/L CALCIUM (test code = 69276-9) 9.5 mg/dL PROTEIN, TOTAL (test code = 2885-2) 7.1 g/dL ALBUMIN (test code = 1751-7) 4.7 g/dL GLOBULIN (test code = 22661-6) 2.4 g/dL(calc) ALBUMIN/GLOBULIN RATIO (test code = 1759-0) 2.0 (calc) BILIRUBIN, TOTAL (test code = 1975-2) 1.1 mg/dL ALKALINE PHOSPHATASE (test code = 6768-6) 53 U/L AST (test code = 1920-8) 13 U/L ALT (test code = 1742-6) 10 U/L LIPID [id number] 00:00:00* Test Item Value Reference Range Interpretation Comme nts CHOLESTEROL, TOTAL (test cod e = 2093-3) 141 mg/dL HDL CHOLESTEROL (test code = 2085-9) 54 mg/dL TRIGLYCERIDES (test code = 2571-8) 62 mg/dL LDL-CHOLESTEROL (test code = 22870-5) 73 mg/dL(calc) CHOL/HDLC RATIO (test code = 9830-1) 2.6 (calc) NON HDL CHOLESTEROL (test co de = 44626-1) 87 mg/dL(calc) CBC (INCLUDES DIFF/PLT)2019-11-06 00:00:00* Test Item Value [...] cells/uL ABSOLUTE BAND NEUTROPHILS (test code = 34018-1) DNR cells/uL ABSOLUTE METAMYELOCYTES (vinod t code = 02792-8) DNR cells/uL ABSOLUTE MYELOCYTES (test code = 47811-0) DNR cells/uL ABSOLUTE PROMYELOCYTES (test code = 80437-2) DNR cells/uL ABSOLUTE LYMPHOCYTES (test code = 731-0) 2268 cells/uL ABSOLUTE MONOCYTES (test cod e = 742-7) 622 cells/uL ABSOLUTE EOSINOPHILS (test code = 711-2) 160 cells/uL ABSOLUTE BASOPHILS (test cod e = 704-7) 50 cells/uL ABSOLUTE BLASTS (test code = 74900-5) DNR cells/uL ABSOLUTE NUCLEATED RBC (test code = 80586-6) DNR cells/uL NEUTROPHILS (test code = 770-8) 63.1 % BAND NEUTROPHILS (test code = 764-1) DNR % METAMYELOCYTES (test code = 740-1) DNR % MYELOCYTES (test code = 749-2) DNR % PROMYELOCYTES (test code = 783-1) DNR % LYMPHOCYTES (test code = 736-9) 27.0 % REACTIVE LYMPHOCYTES (test code = 85167-6) DNR % MONOCYTES (test code = 5905-5) 7.4 % EOSINOPHILS (test code = 713-8) 1.9 % BASOPHILS (test code = 706-2) 0.6 % BLASTS (test code = 709-6) DNR % NUCLEATED RBC (test code = 50777-6) DNR /100WBC COMMENT(S) (test code = 8251-1) DNR Jordan Hoff AustinHIV 1/2 ANTIGEN/ANTIBODY,FOURTH GENERATION [id number] 00:00:00* Test Item Value Reference Range Interpretation Comme nts HIV AG/AB, 4TH GEN (test cod e = 81282-6) TNP Jordan Hoff AustinCHLAMYDIA TRACHOMATIS RNA, [id number] 00:00:00* Test Item Value Reference Range Interpretation Comme nts CHLAMYDIA TRACHOMATIS RNA, T MA, UROGENITAL (test code = 30430-2) NOT DETECTED Jordan TrotterNEISSERIA GONORRHOEAE RNA, [id number] 00:00:00* Test Item Value Reference Range Interpretation Comme nts NEISSERIA GONORRHOEAE RNA, T MA, UROGENITAL (test code = 61659-2) NOT DETECTED Jordan Hoff AustinHEPATITIS PANEL, ACUTE W/REFLEX TO [id number] 00:00:00* Test Item Value Reference Range Interpretation Comme nts HEPATITIS A IGM (test code = 79671-4) NON-REACTIVE HEPATITIS B SURFACE ANTIGEN (test code = 5196-1) NON-REACTIVE CONFIRMATION (test code = 7905-3) DNR HEPATITIS B CORE ANTIBODY (I GM) (test code = 25910-0) NON-REACTIVE HEPATITIS C ANTIBODY (test c ode = 98993-9) NON-REACTIVE SIGNAL TO CUT-OFF (test code = 68128-1) 0.03 Jordan Hoff AustinRPR (MONITOR) W/REFL [id number] 00:00:00* Test Item Value Reference Range Interpretation Comme nts RPR (MONITOR) W/REFL TITER ( test code = 08933-4) TNP Jordan Hoff AustinHIV 1/2 ANTIGEN/ANTIBODY,FOURTH GENERATION [id number] 00:00:00* Test Item Value Reference Range Interpretation Comme nts HIV AG/AB, 4TH GEN (test cod e = 48441-9) TNP Jordan Hoff AustinCHLAMYDIA TRACHOMATIS RNA, [id number] 00:00:00* Test Item Value Reference Range Interpretation Comme nts CHLAMYDIA TRACHOMATIS RNA, T MA, UROGENITAL (test code = 82936-4) NOT DETECTED Jordan Hoff AustinHIV 1/2 ANTIGEN/ANTIBODY,FOURTH GENERATION [id number] 00:00:00* Test Item Value Reference Range Interpretation Comme nts HIV AG/AB, 4TH GEN (test cod e = 08767-6) TNP NEISSERIA GONORRHOEAE RNA, [id number] 00:00:00* Test Item Value Reference Range Interpretation Comme nts NEISSERIA GONORRHOEAE RNA, T MA, UROGENITAL (test code = 28130-9) NOT DETECTED COMMENT (test code = ) HEPATITIS PANEL, ACUTE W/REFLEX TO [id number] 00:00:00* Test Item Value Reference Range Interpretation Comme nts HEPATITIS A IGM (test code = 86554-6) NON-REACTIVE HEPATITIS B SURFACE ANTIGEN (test code = 5196-1) NON-REACTIVE CONFIRMATION (test code = 7905-3) DNR HEPATITIS B CORE ANTIBODY (I GM) (test code = 04438-8) NON-REACTIVE HEPATITIS C ANTIBODY (test c ode = 95546-8) NON-REACTIVE SIGNAL TO CUT-OFF (test code = 92515-7) 0.03 RPR (MONITOR) W/REFL [id number] 00:00:00* Test Item Value Reference Range Interpretation Comme nts RPR (MONITOR) W/REFL TITER ( test code = 49730-0) TNP CHLAMYDIA TRACHOMATIS RNA, [id number] 00:00:00* Test Item Value Reference Range Interpretation Comme nts CHLAMYDIA TRACHOMATIS RNA, T MA, UROGENITAL (test code = 91419-3) NOT DETECTED COMMENT (test code = ) HIV 1/2 ANTIGEN/ANTIBODY,FOURTH GENERATION [id number] 00:00:00* Test Item Value Reference Range Interpretation Comme nts HIV AG/AB, 4TH GEN (test cod e = 78366-9) TNP NEISSERIA GONORRHOEAE RNA, [id number] 00:00:00* Test Item Value Reference Range Interpretation Comme nts NEISSERIA GONORRHOEAE RNA, T MA, UROGENITAL (test code = 61765-6) NOT DETECTED COMMENT (test code = ) HEPATITIS PANEL, ACUTE W/REFLEX TO [id number] 00:00:00* Test Item Value Reference Range Interpretation Comme nts HEPATITIS A IGM (test code = 17325-8) NON-REACTIVE HEPATITIS B SURFACE ANTIGEN (test code = 5196-1) NON-REACTIVE CONFIRMATION (test code = 7905-3) DNR HEPATITIS B CORE ANTIBODY (I GM) (test code = 48227-9) NON-REACTIVE HEPATITIS C ANTIBODY (test c ode = 60397-1) NON-REACTIVE SIGNAL TO CUT-OFF (test code = 54060-7) 0.03 RPR (MONITOR) W/REFL [id number] 00:00:00* Test Item Value Reference Range Interpretation Comme nts RPR (MONITOR) W/REFL TITER ( test code = 74454-1) TNP CHLAMYDIA TRACHOMATIS RNA, [id number] 00:00:00* Test Item Value Reference Range Interpretation Comme nts CHLAMYDIA TRACHOMATIS RNA, T MA, UROGENITAL (test code = 76123-1) NOT DETECTED COMMENT (test code = ) HIV 1/2 ANTIGEN/ANTIBODY,FOURTH GENERATION [id number] 00:00:00* Test Item Value Reference Range Interpretation Comme nts HIV AG/AB, 4TH GEN (test cod e = 62112-8) TNP NEISSERIA GONORRHOEAE RNA, [id number] 00:00:00* Test Item Value Reference Range Interpretation Comme nts NEISSERIA GONORRHOEAE RNA, T MA, UROGENITAL (test code = 20999-7) NOT DETECTED COMMENT (test code = ) HEPATITIS PANEL, ACUTE W/REFLEX TO [id number] 00:00:00* Test Item Value Reference Range Interpretation Comme nts HEPATITIS A IGM (test code = 06514-9) NON-REACTIVE HEPATITIS B SURFACE ANTIGEN (test code = 5196-1) NON-REACTIVE CONFIRMATION (test code = 7905-3) DNR HEPATITIS B CORE ANTIBODY (I GM) (test code = 78446-9) NON-REACTIVE HEPATITIS C ANTIBODY (test c ode = 01656-6) NON-REACTIVE SIGNAL TO CUT-OFF (test code = 85745-1) 0.03 RPR (MONITOR) W/REFL [id number] 00:00:00* Test Item Value Reference Range Interpretation Comme nts RPR (MONITOR) W/REFL TITER ( test code = 67031-5) TNP CHLAMYDIA TRACHOMATIS RNA, [id number] 00:00:00* Test Item Value Reference Range Interpretation Comme nts CHLAMYDIA TRACHOMATIS RNA, T MA, UROGENITAL (test code = 29782-8) NOT DETECTED COMMENT (test code = ) NEISSERIA GONORRHOEAE RNA, [id number] 00:00:00* Test Item Value Reference Range Interpretation Comme nts NEISSERIA GONORRHOEAE RNA, T MA, UROGENITAL (test code = 11177-6) NOT DETECTED Jordan TrotterHEPATITIS PANEL, ACUTE W/REFLEX TO [id number] 00:00:00* Test Item Value Reference Range Interpretation Comme nts HEPATITIS A IGM (test code = 10012-5) NON-REACTIVE HEPATITIS B SURFACE ANTIGEN (test code = 5196-1) NON-REACTIVE CONFIRMATION (test code = 7905-3) DNR HEPATITIS B CORE ANTIBODY (I GM) (test code = 38870-7) NON-REACTIVE HEPATITIS C ANTIBODY (test c ode = 14383-8) NON-REACTIVE SIGNAL TO CUT-OFF (test code = 34752-4) 0.03 Jordan Hoff AustinRPR (MONITOR) W/REFL [id number] 00:00:00* Test Item Value Reference Range Interpretation Comme nts RPR (MONITOR) W/REFL TITER ( test code = 23314-7) TNP Jordan TrotterHIV AB/AG COMBO RFLX [id number] 00:00:00* Test Item Value Reference Range Interpretation Comme nts HIV 1/2 4TH GEN, RFLX CONF ( test code = 3514) NON-REACTIVE Jordan Hoff [id number] 00:00:00* Test Item Value Reference Range Interpretation Comme nts RPR RESULT (test code = 3501) NON-REACTIVE RPR TITER (test code = 3500) NOT INDIC. TITER Jordan TrotterVAGINAL PATHOGENS DNA [id number] 00:00:00* Test Item Value Reference Range Interpretation Comme nts SUZE SPECIES (test code = 94478) POSITIVE G. VAGINALIS (test code = 47883) NEGATIVE T. VAGINALIS (test code = 96448) NEGATIVE Jordan TrotterACUTE HEPATITIS [id number] 00:00:00* Test Item Value Reference Range Interpretation Comme nts HEPATITIS A IgM (test code = 11325) NON-REACTIVE HEPATITIS B CORE IgM (test c ode = 4644) NON-REACTIVE HEPATITIS B SURF AG (test co de = 2739) NON-REACTIVE HEPATITIS C ANTIBODY (test c ode = 4675) NON-REACTIVE HCV INDEX (test code = 04096) 0.08 INTERPRETATION HEPATITIS A: (test code = 2552) (NOTE) INTERPRETATION HEPATITIS B: (test code = 15062) (NOTE) INTERPRETATION HEPATITIS C: (test code = 94825) (NOTE) Jordan TrotterHIV AB/AG COMBO RFLX [id number] 00:00:00* Test Item Value Reference Range Interpretation Comme nts HIV 1/2 4TH GEN, RFLX CONF ( test code = 3514) NON-REACTIVE Jordan Hoff [id number] 00:00:00* Test Item Value Reference Range Interpretation Comme nts RPR RESULT (test code = 3501) NON-REACTIVE RPR TITER (test code = 3500) NOT INDIC. TITER Jordan Hoff AustinVAGINAL PATHOGENS DNA [id number] 00:00:00* Test Item Value Reference Range Interpretation Comme nts SUZE SPECIES (test code = 19863) POSITIVE G. VAGINALIS (test code = 07427) NEGATIVE T. VAGINALIS (test code = 38579) NEGATIVE Jordan Hoff AustinVAGINAL PATHOGENS DNA [id number] 00:00:00* Test Item Value Reference Range Interpretation Comme nts SUZE SPECIES (test code = 85905) POSITIVE G. VAGINALIS (test code = 64501) NEGATIVE T. VAGINALIS (test code = 37127) NEGATIVE ACUTE HEPATITIS [id number] 00:00:00* Test Item Value Reference Range Interpretation Comme nts HEPATITIS A IgM (test code = 07667) NON-REACTIVE HEPATITIS B CORE IgM (test c ode = 4644) NON-REACTIVE HEPATITIS B SURF AG (test co de = 2739) NON-REACTIVE HEPATITIS C ANTIBODY (test c ode = 4675) NON-REACTIVE HCV INDEX (test code = 51812) 0.08 INTERPRETATION HEPATITIS A: (test code = 2552) (NOTE) INTERPRETATION HEPATITIS B: (test code = 50288) (NOTE) INTERPRETATION HEPATITIS C: (test code = 40258) (NOTE) HIV AB/AG COMBO RFLX [id number] 00:00:00* Test Item Value Reference Range Interpretation Comme nts HIV 1/2 4TH GEN, RFLX CONF ( test code = 3514) NON-REACTIVE [id number] 00:00:00* Test Item Value Reference Range Interpretation Comme nts RPR RESULT (test code = 3501) NON-REACTIVE RPR TITER (test code = 3500) NOT INDIC. TITER VAGINAL PATHOGENS DNA [id number] 00:00:00* Test Item Value Reference Range Interpretation Comme nts SUZE SPECIES (test code = ) POSITIVE G. VAGINALIS (test code = ) NEGATIVE T. VAGINALIS (test code = ) NEGATIVE ACUTE HEPATITIS [id number] 00:00:00* Test Item Value Reference Range Interpretation Comme nts HEPATITIS A IgM (test code = 01509) NON-REACTIVE HEPATITIS B CORE IgM (test c ode = 4644) NON-REACTIVE HEPATITIS B SURF AG (test co de = 2739) NON-REACTIVE HEPATITIS C ANTIBODY (test c ode = 4675) NON-REACTIVE HCV INDEX (test code = 67153) 0.08 INTERPRETATION HEPATITIS A: (test code = 2552) (NOTE) INTERPRETATION HEPATITIS B: (test code = 60720) (NOTE) INTERPRETATION HEPATITIS C: (test code = 45309) (NOTE) HIV AB/AG COMBO RFLX [id number] 00:00:00* Test Item Value Reference Range Interpretation Comme nts HIV 1/2 4TH GEN, RFLX CONF ( test code = 3514) NON-REACTIVE ACUTE HEPATITIS [id number] 00:00:00* Test Item Value Reference Range Interpretation Comme nts HEPATITIS A IgM (test code = 88599) NON-REACTIVE HEPATITIS B CORE IgM (test c ode = 4644) NON-REACTIVE HEPATITIS B SURF AG (test co de = 2739) NON-REACTIVE HEPATITIS C ANTIBODY (test c ode = 4675) NON-REACTIVE HCV INDEX (test code = 20868) 0.08 INTERPRETATION HEPATITIS A: (test code = 2552) (NOTE) INTERPRETATION HEPATITIS B: (test code = 72117) (NOTE) INTERPRETATION HEPATITIS C: (test code = 68174) (NOTE) Jordan Hoff [id number] 00:00:00* Test Item Value Reference Range Interpretation Comme nts RPR RESULT (test code = 3501) NON-REACTIVE RPR TITER (test code = 3500) NOT INDIC. TITER VAGINAL PATHOGENS DNA [id number] 00:00:00* Test Item Value Reference Range Interpretation Comme nts SUZE SPECIES (test code = 88526) POSITIVE G. VAGINALIS (test code = 64382) NEGATIVE T. VAGINALIS (test code = 13330) NEGATIVE ACUTE HEPATITIS [id number] 00:00:00* Test Item Value Reference Range Interpretation Comme nts HEPATITIS A IgM (test code = 18618) NON-REACTIVE HEPATITIS B CORE IgM (test c ode = 4644) NON-REACTIVE HEPATITIS B SURF AG (test co de = 2739) NON-REACTIVE HEPATITIS C ANTIBODY (test c ode = 4675) NON-REACTIVE HCV INDEX (test code = 88139) 0.08 INTERPRETATION HEPATITIS A: (test code = 2552) (NOTE) INTERPRETATION HEPATITIS B: (test code = 30005) (NOTE) INTERPRETATION HEPATITIS C: (test code = 52056) (NOTE) HIV AB/AG COMBO RFLX [id number] 00:00:00* Test Item Value Reference Range Interpretation Comme nts HIV 1/2 4TH GEN, RFLX CONF ( test code = 3514) NON-REACTIVE [id number] 00:00:00* Test Item Value Reference Range Interpretation Comme nts RPR RESULT (test code = 3501) NON-REACTIVE RPR TITER (test code = 3500) NOT INDIC. TITER CHLAMYDIA, AMPLIFIED, [id number] 00:00:00* Test Item Value Reference Range Interpretation Comme nts CHLAMYDIA, TMA (test code = 69050) NEGATIVE Jordan F AustinGC, AMPLIFIED, [id number] 00:00:00* Test Item Value Reference Range Interpretation Comme nts GONORRHEA, TMA (test code = 73048) NEGATIVE Jordan F AustinCHLAMYDIA, AMPLIFIED, [id number] 00:00:00* Test Item Value Reference Range Interpretation Comme nts CHLAMYDIA, TMA (test code = 33112) NEGATIVE Jordan F AustinGC, AMPLIFIED, [id number] 00:00:00* Test Item Value Reference Range Interpretation Comme nts GONORRHEA, TMA (test code = 12043) NEGATIVE Jordan F AustinCHLAMYDIA, AMPLIFIED, [id number] 00:00:00* Test Item Value Reference Range Interpretation Comme nts CHLAMYDIA, TMA (test code = 24723) NEGATIVE GC, AMPLIFIED, [id number] 00:00:00* Test Item Value Reference Range Interpretation Comme nts GONORRHEA, TMA (test code = 76379) NEGATIVE CHLAMYDIA, AMPLIFIED, [id number] 00:00:00* Test Item Value Reference Range Interpretation Comme nts CHLAMYDIA, TMA (test code = 05056) NEGATIVE GC, AMPLIFIED, [id number] 00:00:00* Test Item Value Reference Range Interpretation Comme nts GONORRHEA, TMA (test code = 31829) NEGATIVE CHLAMYDIA, AMPLIFIED, [id number] 00:00:00* Test Item Value Reference Range Interpretation Comme nts CHLAMYDIA, TMA (test code = 60389) NEGATIVE GC, AMPLIFIED, [id number] 00:00:00* Test Item Value Reference Range Interpretation Comme nts GONORRHEA, TMA (test code = 26889) NEGATIVE Notes Date/Time Note [facility]
[2024-08-30] MEDS ORDERED: NA CHLORIDE 0.9% 100 ML ONE (22:58)
[2024-08-30] MEDS ORDERED: NALOXONE HCL 2 MG/2 ML VIAL ONE (22:58)
[2024-08-30] MEDS ORDERED: NA CHLORIDE 0.9% 1,000 ML ONE (23:06)
[2024-08-30 23:29] LABS: Absolute Lymphocytes (CBC) 3.8 K/uL (0.7-4.9); Absolute Monocytes 0.5 K/uL (0.1-1.3); Absolute Neutrophil 6.7 K/uL (1.8-8.0); Basophils % 0.4 % (0-1.3); Eosinophils % 0.1 % (0-4.4); Hematocrit 40.3 % (36.0-45.0); Hemoglobin 13.7 g/dL (12.0-15.0); Lymphocytes % 34.4 % (15.3-44.8); MCH 31.5 pg (27.0-35.0); MCHC 34.1 g/dL (32.0-36.0); MCV 92.2 fL (80-100); MPV 7.5 fL (7.6-11.3); Monocytes % 4.4 % (3.3-12.3); Neutrophils % 60.7 % (41.7-73.7); Nucleated Red Blood Cells % 0.1 % (0-0); Platelets 442 thou/uL (152-406); RBC Red Blood Cell Count 4.37 M/uL (3.86-4.86); Red Cell Distribution Width 13.3 % (12.1-15.2)
[2024-08-30 23:32] LABS: PTT, Activated Partial Thromb 27.6 SECONDS (27.2-37.4); Protime INR 0.96
[2024-08-30 23:40] LABS: ALT/SGPT 17 U/L (13-56); Albumin 3.9 g/dL (3.4-5.0); Albumin/Globulin Ratio 1.1 (1.1-1.8); Alkaline Phosphatase 80 U/L (45-117); Anion Gap 7.6 mEq/L (5.0-15.0); BUN Blood Urea Nitrogen 11 mg/dL (7-18); Bicarbonate 29 mEq/L (21-32); Bilirubin Total 0.5 mg/dL (0.2-1.0); Globulin 3.5 g/dL (2.3-3.5); Glomerular Filtration Rate 115 ml/min (=/>90); Glucose Level 178 mg/dL (74-106); Potassium 3.6 mEq/L (3.5-5.1); Protein, Total 7.4 g/dL (6.4-8.2); Sodium Level 140 mEq/L (136-145)
[2024-08-30 23:42] LABS: AST/SGOT < 10 U/L (15-37); Bilirubin Direct < 0.2 mg/dL (0-0.2); Bilirubin Indirect, Calculated 0.3 mg/dL (0.2-0.8)
[2024-08-31 00:50] LABS: Specific Gravity 1.028 (1.005-1.030)
[2024-08-31 00:56] LABS: Specific Gravity 1.028 (1.005-1.030); Sqamous Epithelial <5 /HPF (None Seen); Urine Bacteria <20 /HPF (<20); Urine Bilirubin NEGATIVE (Negative); Urine Blood Negative (Negative); Urine Clarity Turbid (Clear); Urine Color Light-Yellow (Yellow); Urine Culture Reflex Order NOT NEEDED; Urine Glucose NEGATIVE (Negative); Urine Ketones NEGATIVE (Negative); Urine Microscopic Reflex YN ORDER UMIC; Urine Mucus 1+ /HPF (None Seen); Urine Nitrite NEGATIVE (Negative); Urine Protein 1+ (Negative); Urine RBC <5 /HPF (None Seen); Urine Urobilinogen Normal (Normal); Urine WBC <5 /HPF (<5); Urine pH 5.5 (5.0-7.0)
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
[2024-08-31 01:03] LABS: Barbiturates NEGATIVE (NEGATIVE); Benzodiazepines NEGATIVE (NEGATIVE); Cocaine NEGATIVE (NEGATIVE); METHAMPHETAM NEGATIVE (NEGATIVE); Methadone NEGATIVE (NEGATIVE); Opiates NEGATIVE (NEGATIVE); Phencyclidine NEGATIVE (NEGATIVE); THC Cannibis POSITIVE (NEGATIVE)
[2024-08-31] MEDS ORDERED: ACETAMINOPHEN 325 MG TABLET PO PRN (02:39)
[2024-08-31] MEDS ORDERED: ONDANSETRON 4 MG/2 ML VIAL IV PRN (02:39)
--- NOTE | 2024-08-31 02:39 | P.HP ---
Certification for Inpatient Patient admitted to: Inpatient With expected LOS: >2 Midnights Practitioner: I am a practitioner with admitting privileges, knowledge of patient current condition, hospital course, and medical plan of care. Services: Services provided to patient in accordance with Admission requirements found in Title 42 Section 412.3 of the Code of Federal Regulations Patient History Date of Service: 08/31/24 Reason for admission: Seizure / Drug overdose History of Present Illness: 23 yrs old Female with no significant past medical history other than history o f drug abuse who states that patient quit using drugs 3 years ago but desired to try one-time street drug yesterday and was brought to ER with altered mental status and seizure episode. Patient had a seizure-like activity with eyes rolled back and was brought to ER. Denies any chest pain or shortness of breath. No fever or chills. No nausea vomiting or diarrhea. Patient was started on Narcan drip and was admitted for further management Allergies No Known Allergies Allergy (Unverified 08/31/24 02:45) Home medications list reviewed: Yes - Past Medical/Surgical History Past Medical History: Reviewed- Non-Contributory Past Surgical History: Reviewed- Non-Contributory - Family History Family History: Reviewed- Non-Contributory - Social History Smoking Status: Former smoker Review of Systems 10-point ROS is otherwise unremarkable Physical Examination - Vital Signs Temperature: 97.9 F Blood Pressure: 136/97 Pulse: 84 Respirations: 18 Pulse Ox (%): 94 - Physical Exam General: Alert, In no apparent distress, Oriented x3 HEENT: Atraumatic, Normocephalic Neck: Supple Respiratory: Clear to auscultation bilaterally, Normal air movement Cardiovascular: Regular rate/rhythm, Normal S1 S2 Capillary refill: <2 Seconds Gastrointestinal: Soft and benign, W/out hepatosplenomegaly Musculoskeletal: No clubbing, No swelling Integumentary: No rashes Neurological: Other (Alert awake nonfocal) Lymphatics: No axilla or inguinal lymphadenopathy - Studies Laboratory Data (last 24 hrs) 08/30/24 08/30/24 08/30/24 22:35 22:35 22:35 WBC 11.00 H Hgb 13.7 Hct 40.3 Plt Count 442 H PT 11.0 INR 0.96 APTT 27.6 Sodium 140 Potassium 3.6 BUN 11 Creatinine 0.75 Glucose 178 H Total Bilirubin 0.5 AST < 10 L ALT 17 Alkaline Phosphatase 80 Assessment and Plan - Plan Drug abuse Seizure-like activities Acute encephalopathy toxic Monitor closely in telemetry Admitted to the ICU because of Narcan drip Watch closely for seizure Ativan as needed Monitor neuro vital signs closely GI/DVT prophylaxis Advanced directive full code Discharge Plan: Home Plan to discharge in: 48 Hours - Advance Directives Does patient have a Living Will: No Does patient have a Durable POA for Healthcare: No - Code Status/Comfort Care Code Status: Full Code Time Spent Managing Pts Care (In Minutes): 48
[2024-08-31 03:42] VITALS: BMI 25.2
[2024-08-31] MEDS ORDERED: NALOXONE 0.4 MG/ML VIAL IV PRN (04:05)
--- NOTE | 2024-08-31 05:33 | RAD REPORT ---
EXAM DESCRIPTION: Chest Single View CLINICAL HISTORY: COUGH TECHNIQUE: AP chest COMPARISON: None available for comparison FINDINGS: CHEST: Heart: The cardiomediastinal silhouette is within normal limits. Lungs: No focal consolidation. Mediastinum: Unremarkable Pleura: No appreciable effusion. No pneumothorax. Bones: Intact IMPRESSION: No acute cardiopulmonary disease. Electronically signed by: Dylan Chinchilla MD 08/31/2024 12:59 AM CDT RP Due to temporary technical issues with the [employer] reporting system, reports are being jony d by the in-house radiologist without review as a courtesy to ensure prompt reporting the interpreting radiologist is fully responsible for the content of the report. Transcribed Date/Time: 08/31/2024 5:33 AM
[2024-08-31 07:55] LABS: Absolute Lymphocytes (CBC) 2.7 K/uL (0.7-4.9); Absolute Monocytes 0.6 K/uL (0.1-1.3); Basophils % 0.5 % (0-1.3); Eosinophils % 0.4 % (0-4.4); Hemoglobin 11.7 g/dL (12.0-15.0); Lymphocytes % 29.5 % (15.3-44.8); MCH 31.8 pg (27.0-35.0); MCHC 34.5 g/dL (32.0-36.0); MCV 92.4 fL (80-100); MPV 7.5 fL (7.6-11.3); Monocytes % 5.9 % (3.3-12.3); Neutrophils % 63.7 % (41.7-73.7); Platelets 312 thou/uL (152-406); RBC Red Blood Cell Count 3.68 M/uL (3.86-4.86); Red Cell Distribution Width 13.2 % (12.1-15.2)
[2024-08-31 08:08] LABS: Anion Gap 6.7 mEq/L (5.0-15.0); Phosphorus 3.7 mg/dL (2.5-4.9); Potassium 3.7 mEq/L (3.5-5.1)
[2024-08-31] MEDS: ENOXAPARIN 40 MG/0.4 ML SQ SCH (08:52)
[2024-08-31] MEDS: POTASSIUM CL SA 10 MEQ TAB PO ONE (09:21)
--- NOTE | 2024-08-31 13:40 | RAD REPORT ---
EXAM: CT brain without contrast HISTORY: Seizure COMPARISON: 2017 TECHNIQUE: Multiple contiguous axial images were obtained and a CT of the brain without contrast.. Sagittal and coronal reconstruction performed. Automated exposure control, adjustment of the mA and/or kV according to patient size, and/or iterative reconstruction. Unless otherwise specified, incidental f indings do not require dedicated imaging follow-up FINDINGS: An intracranial bleed is not seen Ventricles are normal caliber No extra-axial fluid collection noted No significant hypodensity within the brain No fluid within the visualized sinuses or mastoids noted. IMPRESSION: No acute intracranial abnormality noted. If the patient continues to have symptoms to suggest an acute intracranial abnormality then MRI of th e brain would be recommended.
--- NOTE | 2024-08-31 15:13 | P.PN ---
Date of Service: 08/31/24 Patient seen and examined. She denies any complaint No seizures since admission Patient admitted to snorting fentanyl to al. Continue IV hydration Continue neurocheck Diet as tolerated Monitor vitals.
[2024-09-01 05:25] LABS: Absolute Basophils 0.1 K/uL (0-0.5); Absolute Lymphocytes (CBC) 2.2 K/uL (0.7-4.9); Absolute Monocytes 0.4 K/uL (0.1-1.3); Absolute Neutrophil 3.8 K/uL (1.8-8.0); Basophils % 1.1 % (0-1.3); Eosinophils % 0.1 % (0-4.4); Hemoglobin 14.2 g/dL (12.0-15.0); Lymphocytes % 33.8 % (15.3-44.8); MCH 31.5 pg (27.0-35.0); MCHC 34.5 g/dL (32.0-36.0); MCV 91.4 fL (80-100); MPV 7.5 fL (7.6-11.3); Monocytes % 5.6 % (3.3-12.3); Neutrophils % 59.4 % (41.7-73.7); Nucleated RBC Absolute Count 0.1 (0-0); Nucleated Red Blood Cells % 0.8 % (0-0); Platelets 355 thou/uL (152-406); RBC Red Blood Cell Count 4.49 M/uL (3.86-4.86); Red Cell Distribution Width 13.3 % (12.1-15.2)
[2024-09-01 05:50] LABS: Albumin 3.5 g/dL (3.4-5.0); Anion Gap 6.3 mEq/L (5.0-15.0); Globulin 3.6 g/dL (2.3-3.5); Potassium 4.3 mEq/L (3.5-5.1); Protein, Total 7.1 g/dL (6.4-8.2)
[2024-09-01 09:08] VITALS: O2SAT 100
[2024-09-01 09:16] VITALS: TEMP 97.8
[2024-09-01 12:18] VITALS: BP 97/70
--- NOTE | 2024-09-01 12:26 | P.DS ---
Admission Date: 08/31/24 Discharge Date: 09/01/24 Disposition: ROUTINE DISCHARGE Discharge Condition: FAIR Reason for Admission: Seizure / Drug overdose Brief History of Present Illness: 23 yrs old Female with no significant past medical history other than history of drug abuse who claims she had abstained for 3 years ago was brought to the emergency department due to altered mental status and a seizure episode. Patient reports taken an illicit drug. Urine toxicology screen was negative in the ED. Patient was started on Narcan drip and was admitted for further management. Hospital Course: Diagnosis Drug-induced seizures Opioid overdose THC use. Patient became awake within 24 hours, alert and oriented and admitted to snorting fentanyl to nc. She also told the nursing staff that she took some oxycodone and adderral. Patient was monitored and treated. Supportive measures including IV fluid. No more seizures witnessed, respiratory rate was within normal range, vital stable, patient tolerated diet and has been ambulatory. She is currently asymptomatic. Patient is deemed stable for discharge. Patient advised to abstain from illicit substance use, and also informed to utilize addiction programs available as needed. She mentions she has an appointment for a job interview today. Vital Signs/Physical Exam: Temp Pulse Resp BP Pulse Ox 97.8 F 69 14 97/70 98 09/01/24 08:00 09/01/24 12:00 09/01/24 12:00 09/01/24 12:00 09/01/24 12:00 General: Alert, In no apparent distress, Oriented x3 HEENT: Mucous membr. moist/pink Neck: Supple, JVD not distended Respiratory: Clear to auscultation bilaterally, Normal air movement Cardiovascular: No edema, Regular rate/rhythm, Normal S1 S2 Gastrointestinal: Normal bowel sounds, Soft and benign, Non-distended, No tende rness Musculoskeletal: No swelling, No tenderness Integumentary: No rashes, No cyanosis Neurological: Normal strength at 5/5 x4 extr, Cranial nerves 3-12 intact Laboratory Data at Discharge: WBC 6.40 thou/uL (4.3-10.9) 09/01/24 05:11 Hgb 14.2 g/dL (12.0-15.0) D 09/01/24 05:11 Hct 41.0 % (36.0-45.0) 09/01/24 05:11 Plt Count 355 thou/uL (152-406) 09/01/24 05:11 PT 11.0 SECONDS (10-13.0) 08/30/24 22:35 INR 0.96 08/30/24 22:35 APTT 27.6 SECONDS (27.2-37.4) 08/30/24 22:35 Sodium 137 mEq/L (136-145) 09/01/24 05:11 Potassium 4.3 mEq/L (3.5-5.1) D 09/01/24 05:11 BUN 7 mg/dL (7-18) 09/01/24 05:11 Creatinine 0.62 mg/dL (0.55-1.02) 09/01/24 05:11 Glucose 85 mg/dL (74-106) 09/01/24 05:11 Phosphorus 3.7 mg/dL (2.5-4.9) 08/31/24 07:35 Magnesium 2.0 mg/dL (1.6-2.4) 08/31/24 07:35 Total Bilirubin 1.0 mg/dL (0.2-1.0) 09/01/24 05:11 AST 11 U/L (15-37) L 09/01/24 05:11 ALT 16 U/L (13-56) 09/01/24 05:11 Alkaline Phosphatase 72 U/L (45-117) 09/01/24 05:11 Home Medications: NK [No Home Meds] 09/01/24 Diet: Regular Followup: NONE,NONE [Primary Care Provider] - 1-2 Weeks Evan Rojas MD [ASSOCIATE-ACTIVE - CAN ADMIT] - 1-2 Weeks Time spent managing pt's care (in minutes): 34
[2024-09-01] MEDS ORDERED: NALOXONE HCL 2 MG/2 ML VIAL IV ONE (13:14)
--- NOTE | 2024-09-05 12:58 | EKG ---
Test Date: 2024-08-30 Test Time: 22:44:05 Freezer Person: RUSS MEASUREMENT RESULTS: Intervals: Rate: 102 AL: 132 QRSD: 88 QT: 350 QTc: 456 [place]: P: 65 AL: 132 QRS: 51 T: 15 INTERPRETIVE STATEMENTS: Sinus tachycardia Otherwise normal ECG Compared to ECG 09/18/2023 16:13:45 Sinus rhythm no longer present Sinus arrhythmia no longer present Electronically Signed On 09-05-24 12:44:01 CDT by Lazaro Vasquez
== END 2024-09-01 13:15 | disposition home or self-care (01) | DRG 917 ==
LOC: ER 22:47 → 3RD-ICU 08-31 02:39
PROVIDERS: ADMIT Family Medicine; ATTEND Internal Medicine
DX: T40.2X1A Poisoning by other opioids, accidental (unintentional), initial encounter (principal); G92.9 Unspecified toxic encephalopathy; J96.00 Acute respiratory failure, unspecified whether with hypoxia or hypercapnia; R56.9 Unspecified convulsions; F55.8 Abuse of other non-psychoactive substances; Z87.891 Personal history of nicotine dependence
CPT/HCPCS: 36415; 70450; 71045; 80048; 80053; 80076; 80143; 80179; 80307; 81001; 81025; 82077; 83735; 84100; 85025; 85610; 85730; 93005; 94760; 96361; 96374; 96375; 99291; 99292; J1650; J2310; J7030

== ENCOUNTER 2024-09-10 15:01 | Observation (INO) | payer OTHER, SELFPAY ==
--- OUTSIDE RECORDS SUMMARY | 2024-09-10 15:11 | XMS REPORT | Continuity of Care Document ---
Author Name Unknown Address [address] [place] [address]. [address] [place] [address] [facility] Address [address] [facility] 1 [address] [place] [address] Care Team Providers Care Geologist Name Role Phone Nic Sy Primary Care Physician [phone] MARY GRACE Attending Clinician Unavailable Kalebu_Vianney Attending [...] 07-05 00:00: 00 09-14 00:00 :00 No [id number] Jordan Trotter TAKE 1 TABLET TWICE DAILY [...] :00 No Jordan Trotter SMZ/TMP DS TAB [id number] 7807-1 2- 00:00: 00 Yes Jordan Luis Eduardo [...] :00 No Jordan Trotter AMOX/K CLAV TAB 575-385 4274-1 2- 00:00: 00 09-14 00:00 :00 No [...] 2023-06-15 16:37:00 89.00 /min Liz en F Jv Respiratory Rate 2023-06-15 16:37:00 19.00 /min Jordan [...] Jv Heart Rate 2022-07-15 15:35:00 72.00 /min Lzi en F Jv Respiratory Rate 2022-07-15 15:35:00 [...] Goal Plan of Care Note [code = 42149-1] Goal Plan of Care Note [code = 94193-6] Goal Plan of Care Note [code = 80865-1] Goal Plan of Care Note [code = 52562-3] Goal Plan of Care Note [code = 03852-2] Goal Plan of Care Note [code = 36297-5] Goal Plan of Care Note [code = 54873-8] Goal Plan of Care Note [code = 06829-5] Goal Plan of Care Note [code = 80297-7] Goal Plan of Care Note [code = 95181-7] Goal Plan of Care Note [code = 42037-4] Goal Plan of Care Note [code = 68232-3] Goal Plan of Care Note [code = 51305-3] Goal Plan of Care Note [code = 83049-4] Goal Plan of Care Note [code = 14249-6] Goal Plan of Care Note [code = 68160-7] Goal Plan of Care Note [code = 42774-2] Goal Plan of Care Note [code = 95628-2] Goal Plan of Care Note [code = 16162-9] Goal Plan of Care Note [code = 96344-9] Goal Plan of Care Note [code = 18692-1] Goal Plan of Care Note [code = 32708-5] Goal Plan of Care Note [code = 45437-8] Goal Plan of Care Note [code = 07494-1] Goal Plan of Care Note [code = 55264-0] Goal Plan of Care Note [code = 31019-6] Goal Plan of Care Note [code = 46860-8] Goal Plan of Care Note [code = 41581-7] Goal Plan of Care Note [code = 25590-2] Goal Plan of Care Note [code = 12845-8] Goal Plan of Care Note [code = 72909-1] Goal Plan of Care Note [code = 02051-3] Goal Plan of Care Note [code = 91244-9] Goal Plan of Care Note [code = 85336-9] Goal Plan of Care Note [code = 30029-2] Goal Plan of Care Note [code = 34609-4] Goal Plan of Care Note [code = 46394-3] Goal Plan of Care Note [code = 28608-4] Goal Plan of Care Note [code = 09253-0] Goal Plan of Care Note [code = 11093-2] Goal Plan of Care Note [code = 87438-4] Goal Plan of Care Note [code = 28586-6] Goal Plan of Care Note [code = 97957-7] Goal Plan of Care Note [code = 61374-9] Goal Plan of Care Note [code = 73133-4] Goal Plan of Care Note [code = 24763-3] Goal Plan of Care Note [code = 20064-5] Goal Plan of Care Note [code = 78463-2] Goal Plan of Care Note [code = 02859-3] Goal Plan of Care Note [code = 96044-1] Goal Plan of Care Note [code = 82581-9] Goal Plan of Care Note [code = 91504-4] Goal Plan of Care Note [code = 44326-4] Goal Plan of Care Note [code = 85361-5] Goal Plan of Care Note [code = 71289-8] Goal Plan of Care Note [code = 47301-4] Goal Plan of Care Note [code = 06276-4] Goal Plan of Care Note [code = 61219-7] Goal Plan of Care Note [code = 69939-4] Goal Plan of Care Note [code = 57972-5] Goal Plan of Care Note [code = 25588-3] Goal Plan of Care Note [code = 55461-7] Goal Plan of Care Note [code = 15643-9] Goal Plan of Care Note [code = 47950-2] Goal Plan of Care Note [code = 40212-1] Goal Plan of Care Note [code = 01947-8] Goal Plan of Care Note [code = 96400-5] Goal Plan of Care Note [code = 36049-1] Goal Plan of Care Note [code = 76171-0] Goal Plan of Care Note [code = 19655-9] Goal Plan of Care Note [code = 16111-8] Goal Plan of Care Note [code = 09358-8] Goal Plan of Care Note [code = 32259-7] Goal Plan of Care Note [code = 24380-9] Goal Plan of Care Note [code = 57961-6] Goal Plan of Care Note [code = 51170-7] Goal Plan of Care Note [code = 23858-3] Goal Plan of Care Note [code = 75750-6] Goal Plan of Care Note [code = 99320-1] Goal Plan of Care Note [code = 70842-9] Goal Plan of Care Note [code = 00148-5] Goal Plan of Care Note [code = 70734-1] Goal Plan of Care Note [code = 25745-0] Goal Plan of Care Note [code = 73827-6] Goal Plan of Care Note [code = 08386-5] Goal Plan of Care Note [code = 54375-6] Goal Plan of Care Note [code = 25333-3] Goal Plan of Care Note [code = 34127-8] Goal Plan of Care Note [code = 56929-8] Goal Plan of Care Note [code = 64445-1] Goal Plan of Care Note [code = 07876-5] Goal Plan of Care Note [code = 82204-2] Goal Plan of Care Note [code = 11626-7] Goal Plan of Care Note [code = 29613-1] Goal Plan of Care Note [code = 35978-8] Goal Plan of Care Note [code = 36574-2] Goal Plan of Care Note [code = 47197-3] Goal Plan of Care Note [code = 88410-1] Goal Plan of Care Note [code = 46081-4] Goal Plan of Care Note [code = 56365-0] Goal Plan of Care Note [code = 79041-0] Goal Plan of Care Note [code = 23362-6] Goal Plan of Care Note [code = 19244-9] Goal Plan of Care Note [code = 74446-9] Goal Plan of Care Note [code = 30804-8] Goal Plan of Care Note [code = 50054-1] Goal Plan of Care Note [code = 32330-1] Goal Plan of Care Note [code = 68734-9] Goal Plan of Care Note [code = 37885-2] Goal Plan of Care Note [code = 56225-2] Goal Plan of Care Note [code = 06466-1] Goal Plan of Care Note [code = 67190-7] Goal Plan of Care Note [code = 72888-9] Goal Plan of Care Note [code = 36490-3] Goal Plan of Care Note [code = 75336-4] Goal Plan of Care Note [code = 33925-5] Goal Plan of Care Note [code = 97425-9] Goal Plan of Care Note [code = 75487-8] Goal Plan of Care Note [code = 88091-2] Goal Plan of Care Note [code = 23748-5] Goal Plan of Care Note [code = 66396-5] Goal Plan of Care Note [code = 00559-2] Goal Plan of Care Note [code = 23588-4] Encounters Start Date/Time End Date/Time Encounter Type Admission Type Attending [facility] Care Department Encounter ID Source 2024-06-20 15:38:47 2024-06-20 15:38:47 Outpatient IMTIAZ KITCHEN [id number] Jordan Trotter 2024-06-20 00:00:00 2024-06-20 00:00:00 Outpatient Visit IMTIAZ [id number] Jordan Trotter 2024-03-06 16:04:58 2024-03-06 16:04:58 Outpatient SFA SFA [id number] Jordan Hoff Jv 2023-11-30 16:00:20 2023-11-30 16:00:20 Outpatient SFA SFA [id number] Jordan Hoff [place] 2023-11-30 00:00:00 2023-11-30 00:00:00 Outpatient Visit SFA [id number] Jordan Hoff [place] 2023-07-05 15:01:40 2023-07-05 15:01:40 Outpatient SFA SFA [id number] Jordan Hoff [place] 2023-06-15 16:32:53 2023-06-15 16:32:53 Outpatient SFA SFA [id number] Jordan Hoff [place] 2023-06-08 15:58:25 2023-06-08 15:58:25 Outpatient SFA SFA [id number] Jordan Hoff [place] 2023-03-02 16:07:13 2023-03-02 16:07:13 Outpatient SFA SFA [id number] Jordan Hoff [place] 2023-01-19 14:19:58 2023-01-19 14:19:58 Outpatient SFA SFA [id number] Jordan Hoff [place] 2022-12-27 13:59:53 2022-12-27 13:59:53 Outpatient SFA SFA [id number] Jordan Hoff [place] 2022-11-01 15:05:24 2022-11-01 15:05:24 Outpatient SFA SFA [id number] Jordan Hoff [place] 2022-09-07 17:06:19 2022-09-07 17:06:19 Outpatient SFA SFA [id number] Jordan Hoff [place] 2022-07-15 15:30:04 2022-07-15 15:30:04 Outpatient SFA SFA [id number] Jordan Hoff [place] 2022-03-13 13:05:30 2022-03-13 13:05:30 Outpatient SFA SFA [id number] Jordan Hoff [place] 2022-02-17 17:07:00 2022-02-17 17:07:00 Outpatient SFA SFA [id number] Jordan Hoff [place] 2022-02-16 00:00:00 2022-02-16 00:00:00 Outpatient Visit [id number] 2022-01-19 00:00:00 2022-01-19 00:00:00 Outpatient Visit [id number] 2022-01-06 00:00:00 2022-01-06 00:00:00 Outpatient Visit [id number] 2021-12-14 00:00:00 2021-12-14 00:00:00 Outpatient LISTER_MELI SSA [facility] [id number] [facility] h Program 2019-09-13 03:56:00 2019-09-13 03:56:00 Outpatient Raju_P [facility] [id number] [facility] Results Test Description Test Time Test Comments Results Result Co mments Source VAGINAL PATHOGENS DNA [id number] 12:18:43* Test Item Value Reference Range Interpretation Comme nts SUZE SPECIES (test code = 70297) NEGATIVE NEGATIVE G. VAGINALIS (test code = 45349) POSITIVE NEGATIVE A T. VAGINALIS (test code = 71505) NEGATIVE NEGATIVE Note: The BD [facility] ir VPIII Microbial Identification Testis a DNA probe test intended for use in the detectionand identification of Suze species, Gardnerellavaginalis and Trichomonas vaginalis nucleic acid. HIV 1/2 4TH GEN, RFLX [id number] 04:29:11* Test Item Value Reference Range Interpretation Comme nts HIV 1/2 4TH GEN, RFLX CONF (test code = 3514) NON-REACTIVE NON-REACTIVE UNLESS OTHERWISE INDICATED, ALL TESTING PERFORMED AT [facility] [address] [place] [address] ADJUNCT PROFESSOR OF LAW: IRIS GRAJEDA M.D. [place] NUMBER [id number] [facility]. [id number] 03:15:26* Test Item Value Reference Range Interpretation Comme nts RPR RESULT (test code = 3501) NON-REACTIVE NON-REACTIVE RPR TITER (test code = 3500) NOT INDIC. TITER NOT INDIC. HIV 1/2 4TH GEN, RFLX [id number] 00:00:00* Test Item Value Reference Range Interpretation Comme nts HIV 1/2 4TH GEN, RFLX CONF ( test code = 3514) NON-REACTIVE Jordan Luis Eduardo AustinVAGINAL PATHOGENS DNA [id number] 00:00:00* Test Item Value Reference Range Interpretation Comme nts SUZE SPECIES (test code = 56033) NEGATIVE G. VAGINALIS (test code = 44525) POSITIVE T. VAGINALIS (test code = 71090) NEGATIVE Jordan Hoff AustinCT/NG, TMA, [id number] 00:00:00* Test Item Value Reference Range Interpretation Comme nts CHLAMYDIA, NAAT, URINE (test code = 98811) NEGATIVE GONORRHEA, NAAT, URINE (test code = 56024) NEGATIVE Jordan Hoff [id number] 00:00:00* Test Item Value Reference Range Interpretation Comme nts RPR RESULT (test code = 3501) NON-REACTIVE RPR TITER (test code = 3500) NOT INDIC. TITER Jordan Hoff AustinHIV 1/2 4TH GEN, RFLX [id number] 00:00:00* Test Item Value Reference Range Interpretation Comme nts HIV 1/2 4TH GEN, RFLX CONF ( test code = 3514) NON-REACTIVE Jordan Hoff AustinVAGINAL PATHOGENS DNA [id number] 00:00:00* Test Item Value Reference Range Interpretation Comme nts SUZE SPECIES (test code = 70264) NEGATIVE G. VAGINALIS (test code = 36860) POSITIVE T. VAGINALIS (test code = 13243) NEGATIVE Jordan Hoff AustinCT/NG, TMA, [id number] 00:00:00* Test Item Value Reference Range Interpretation Comme nts CHLAMYDIA, NAAT, URINE (test code = 95619) NEGATIVE GONORRHEA, NAAT, URINE (test code = 78708) NEGATIVE Jordan [id number] 00:00:00* Test Item Value Reference Range Interpretation Comme nts RPR RESULT (test code = 3501) NON-REACTIVE RPR TITER (test code = 3500) NOT INDIC. TITER Jordan Sanford, [id number] 15:13:35SPECIMEN NUMBER: [id number] CULTURE, URINE SPECIMEN NUMBER: [id number] SPECIMEN COMMENT: URINE SOURCE: URINE REPORT STATUS: FINAL FINAL REPORT: 12/29/2022 50-100,000 CFU/ML MIXED MICROBIAL POPULATION PRESENT, NO PREDOMINATING ORGANISMS;PROBABLE CONTAMINANTS.CULTURE, [id number] 00:00:00* Test Item Value Reference Range Interpretation Comme nts CULTURE, URINE (test code = 70479) SPECIMEN NUMBER: [id number] Jordan TrotterCULTURE, [id number] 00:00:00* Test Item Value Reference Range Interpretation Comme nts CULTURE, URINE (test code = 68159) SPECIMEN NUMBER: [id number] Jordan TrotterGONORRHEA, NAAT, [id number] 20:15:36* Test Item Value Reference Range Interpretation Comme nts GONORRHEA, NAAT, URINE (test code = 64549) NEGATIVE NEGATIVE Testing is perfo rmed with Allyssa MIGUEL ANGEL 6800/8800 systems usingreal-time polymerase chain reaction (PCR) method. A negative result does not exclude low level infection, specimensampling error, or collection error. CHLAMYDIA, NAAT, [id number] 20:15:36* Test Item Value Reference Range Interpretation Comme nts CHLAMYDIA, NAAT, URINE (test code = 17321) NEGATIVE NEGATIVE Testing is perfo rmed with Allyssa MIGUEL ANGEL 6800/8800 systems usingreal-time polymerase chain reaction (PCR) method. A negative result does not exclude low level infection, specimensampling error, or collection error. VAGINAL PATHOGENS DNA [id number] 16:55:55* Test Item Value Reference Range Interpretation Comme nts SUZE SPECIES (test code = 47653) NEGATIVE NEGATIVE G. VAGINALIS (test code = 17604) NEGATIVE NEGATIVE T. VAGINALIS (test code = 69886) NEGATIVE NEGATIVE Note: The [facility] VPIII Microbial Identification Testis a DNA probe test intended for use in the detectionand identification of Suze species, Gardnerellavaginalis and Trichomonas vaginalis nucleic acid. RPR REFLEX TO T. PALLIDUM - [id number] 04:11:47* Test Item Value Reference Range Interpretation Comme nts RPR (test code = 21667) NON-REACTIVE NON-REACTIVE RPR TITER (test code = 3500) NOT INDIC. TITER NOT INDIC. HEPATITIS PANEL, [id number] 03:57:15* Test Item Value Reference Range Interpretation [...] infection. INTERPRETATION HEPATITIS B: (test code = 50391) (NOTE) Hepatitis B sero logy shows no evidence of past exposure to orcurrent infection with hepatitis B virus. No evidence of hepatitis Bimmunization is identified. INTERPRETATION HEPATITIS C: (test code = 59835) (NOTE) Hepatitis C sero logy shows no evidence of exposure to hepatitisC virus at this time. It can take up to 12 months after exposure tothe hepatitis C virus for antibodies to become detectable in the blood in certain patients. HEPATITIS A [id number] 03:57:15* Test Item Value Reference Range Interpretation Comme nts HEPATITIS A IgM (test code = 2728) NON-REACTIVE NON-REACTIVE UNLESS OTHERW ISE INDICATED, ALL TESTING PERFORMED AT [facility] [address] [place] [address] ADJUNCT PROFESSOR OF LAW: IRIS GRAJEDA M.D. KAYLYNNIA NUMBER [id number] [facility]. [id number] HIV 1/2 4TH GEN, RFLX [id number] 03:57:15* Test Item Value Reference Range Interpretation Comme nts HIV 1/2 4TH GEN, RFLX CONF ( test code = 3514) NON-REACTIVE NON-REACTIVE GC, AMPLIFIED, [id number] 00:00:00* Test Item Value Reference Range Interpretation Comme nts GONORRHEA, NAAT, URINE (test code = 19382) NEGATIVE Jordan TrotterHEPATITIS PROFILE (A,B,C)2022-12-28 00:00:00* Test [...] (NOTE) INTERPRETATION HEPATITIS B: (test code = 17144) (NOTE) INTERPRETATION HEPATITIS C: (test code = 96380) (NOTE) Jordan TrotterVAGINAL PATHOGENS DNA [id number] 00:00:00* Test Item Value Reference Range Interpretation Comme nts SUZE SPECIES (test code = 50312) NEGATIVE G. VAGINALIS (test code = 99689) NEGATIVE T. VAGINALIS (test code = 38661) NEGATIVE Jordan TrotterHEPATITIS A IgM [REFLEX]2022-12-28 00:00:00* Test Item Value Reference Range Interpretation Comme nts HEPATITIS A IgM (test code = 2728) NON-REACTIVE Jordan Hoff AustinHIV 1/2 4TH GEN, RFLX [id number] 00:00:00* Test Item Value Reference Range Interpretation Comme nts HIV 1/2 4TH GEN, RFLX CONF ( test code = 3514) NON-REACTIVE Jordan Hoff AustinRPR REFLEX TO T. PALLIDUM - [id number] 00:00:00* Test Item Value Reference Range Interpretation Comme nts RPR (test code = 97726) NON-REACTIVE RPR TITER (test code = 3500) NOT INDIC. TITER Jordan TrotterCHLAMYDIA, AMPLIFIED, [id number] 00:00:00* Test Item Value Reference Range Interpretation Comme nts CHLAMYDIA, NAAT, URINE (test code = 95642) NEGATIVE Jordan Hoff JvGC, AMPLIFIED, [id number] 00:00:00* Test Item Value Reference Range Interpretation Comme nts GONORRHEA, NAAT, URINE (test code = 45626) NEGATIVE Jordan Hoff AustinHEPATITIS PROFILE (A,B,C)2022-12-28 00:00:00* [...] (NOTE) INTERPRETATION HEPATITIS B: (test code = 11771) (NOTE) INTERPRETATION HEPATITIS C: (test code = 58226) (NOTE) Jordan Hoff AustinVAGINAL PATHOGENS DNA [id number] 00:00:00* Test Item Value Reference Range Interpretation Comme nts SUZE SPECIES (test code = 66714) NEGATIVE G. VAGINALIS (test code = 17965) NEGATIVE T. VAGINALIS (test code = 71301) NEGATIVE Jordan TrotterHEPATITIS A IgM [REFLEX]2022-12-28 00:00:00* Test Item Value Reference Range Interpretation Comme nts HEPATITIS A IgM (test code = 2728) NON-REACTIVE Jordan Hoff AustinHIV 1/2 4TH GEN, RFLX [id number] 00:00:00* Test Item Value Reference Range Interpretation Comme nts HIV 1/2 4TH GEN, RFLX CONF ( test code = 3514) NON-REACTIVE Jordan Hoff AustinRPR REFLEX TO T. PALLIDUM - [id number] 00:00:00* Test Item Value Reference Range Interpretation Comme nts RPR (test code = 93944) NON-REACTIVE RPR TITER (test code = 3500) NOT INDIC. TITER Jordan Hoff AustinCHLAMYDIA, AMPLIFIED, [id number] 00:00:00* Test Item Value Reference Range Interpretation Comme nts CHLAMYDIA, NAAT, URINE (test code = 79957) NEGATIVE Jordan Hoff AustinVAGINAL PATHOGENS DNA [id number] 15:53:03* Test Item Value Reference Range Interpretation Comme nts SUZE SPECIES (test code = 54055) NEGATIVE NEGATIVE G. VAGINALIS (test code = 63217) POSITIVE NEGATIVE A T. VAGINALIS (test code = 12963) NEGATIVE NEGATIVE Note: The BD [employer] irm VPIII Microbial Identification Testis a DNA probe test intended for use in the detectionand identification of Suze species, Gardnerellavaginalis and Trichomonas vaginalis nucleic acid. [facility] has important pathology staff changes effective 07/14/2022. New pathology staff will provide uninterrupted, excellent patient care and clinical consultation. See URL: [email or web address]. UNLESS OTHERWISE INDICATED, ALL TESTING PERFORMED AT [facility] [address] [place] [address] ADJUNCT PROFESSOR OF LAW: IRIS GRAJEDA M.D. CLIA NUMBER [id number] [place]. [id number] VAGINAL PATHOGENS DNA [id number] 00:00:00* Test Item Value Reference Range Interpretation Comme nts SUZE SPECIES (test code = ) NEGATIVE G. VAGINALIS (test code = 35239) POSITIVE T. VAGINALIS (test code = 10693) NEGATIVE Jordan F AustinVAGINAL PATHOGENS DNA [id number] 00:00:00* Test Item Value Reference Range Interpretation Comme nts SUZE SPECIES (test code = ) NEGATIVE G. VAGINALIS (test code = 57257) POSITIVE T. VAGINALIS (test code = 20259) NEGATIVE Jordan F AustinCREATININE, PERITONEAL [id number] 15:09:30* Test Item Value Reference Range Interpretation Comme nts CREATININE, PERITONEAL FLUID (test code = ) TEST NOT PERFORMED Unable to perform testing due to a laboratory error.Charges adjusted as applicable. SOURCE (test code = ) TEST NOT PERFORMED TESTING REFERRED BY [facility] [address] [place] [address] [place]. [id number] CLIA NO. [id number] TESTING PERFORMED AT [facility] AT [address] [facility], [address] CLIA NO: [id number] VAGINAL PATHOGENS DNA [id number] 13:20:18* Test Item Value Reference Range Interpretation Comme nts SUZE SPECIES (test code = 85308) NEGATIVE NEGATIVE G. VAGINALIS (test code = 14287) POSITIVE NEGATIVE A T. VAGINALIS (test code = 35491) NEGATIVE NEGATIVE Note: The BD Aff irm VPIII Microbial Identification Testis a DNA probe test intended for use in the detectionand identification of Suze species, Gardnerellavaginalis and Trichomonas vaginalis nucleic acid. [facility] has important pathology staff changes effective 07/14/2022. New pathology staff will provide uninterrupted, excellent patient care and clinical consultation. See URL: [email or web address]. UNLESS OTHERWISE INDICATED, ALL TESTING PERFORMED AT [facility] [address] [place] [address] ADJUNCT PROFESSOR OF LAW: IRIS GRAJEDA M.D. CLIA NUMBER [id number] [facility] [place]. [id number] CREATININE, PERITONEAL [id number] 00:00:00* Test Item Value Reference Range Interpretation Comme nts CREATININE, PERITONEAL FLUID (test code = ) TEST NOT PERFORMED SOURCE (test code = ) TEST NOT PERFORMED Jordan Luis Eduardo AustinVAGINAL PATHOGENS DNA PANEL [ADDED]2022-07-21 00:00:00* Test Item Value Reference Range Interpretation Comme nts SUZE SPECIES (test code = ) NEGATIVE G. VAGINALIS (test code = 28411) POSITIVE T. VAGINALIS (test code = 50757) NEGATIVE Jordan F AustinCREATININE, PERITONEAL [id number] 00:00:00* Test Item Value Reference Range Interpretation Comme nts CREATININE, PERITONEAL FLUID (test code = ) TEST NOT PERFORMED SOURCE (test code = ) TEST NOT PERFORMED Jordan F AustinVAGINAL PATHOGENS DNA PANEL [ADDED]2022-07-21 00:00:00* Test Item Value Reference Range Interpretation Comme nts SUZE SPECIES (test code = 83500) NEGATIVE G. VAGINALIS (test code = 39940) POSITIVE T. VAGINALIS (test code = 88263) NEGATIVE Jordan F AustinCT/NG, NAAT, [id number] 11:12:41* Test Item Value Reference Range Interpretation Comme nts CHLAMYDIA, NAAT, URINE (test code = 66988) NEGATIVE NEGATIVE Testing is perfo rmed with [employer] 6800/8800 systems usingreal-time polymerase chain reaction (PCR) method. A negative result does not exclude low level infection, specimensampling error, or collection error. GONORRHEA, NAAT, URINE (test code = 09497) NEGATIVE NEGATIVE Testing is perfo rmed with Allyssa MIGUEL ANGEL 6800/8800 systems usingreal-time polymerase chain reaction (PCR) method. A negative result does not exclude low level infection, specimensampling error, or collection error. CT/NG, TMA, [id number] 00:00:00* Test Item Value Reference Range Interpretation Comme nts CHLAMYDIA, NAAT, URINE (test code = 32386) NEGATIVE GONORRHEA, NAAT, URINE (test code = 36027) NEGATIVE Jordan TrotterCT/NG, TMA, [id number] 00:00:00* Test Item Value Reference Range Interpretation Comme nts CHLAMYDIA, NAAT, URINE (test code = 16561) NEGATIVE GONORRHEA, NAAT, URINE (test code = 13839) NEGATIVE Jordan TrotterHIV 1/2 4TH GEN, RFLX [id number] 06:38:56* Test Item Value Reference Range Interpretation Comme nts HIV 1/2 4TH GEN, RFLX CONF ( test code = 3514) NON-REACTIVE NON-REACTIVE HEPATITIS PANEL, [id number] 06:38:56* Test Item Value Reference Range Interpretation Comme nts HEPATITIS A IgM (test code = 58049) NON-REACTIVE NON-REACTIVE HEPATITIS B CORE IgM (test code = 4644) NON-REACTIVE NON-REACTIVE HEPATITIS B SURF AG (test code = 2739) NON-REACTIVE NON-REACTIVE HEPATITIS C ANTIBODY (test code = 4675) NON-REACTIVE NON-REACTIVE INTERPRETATION HEPATITIS A: (test code = 2552) (NOTE) Hepatitis A sero logy shows no evidence of acute hepatitis A. INTERPRETATION HEPATITIS B: (test code = 38951) (NOTE) Hepatitis B sero logy shows no evidence of acute hepatitis B andno indication of exposure to hepatitis B virus in the previous karla eight months. INTERPRETATION HEPATITIS C: (test code = 86710) (NOTE) Hepatitis C sero logy shows no evidence of exposure to hepatitisC virus at this time. It can take up to 12 months after exposure tothe hepatitis C virus for antibodies to become detectable in the blood in certain patients. [facility] has important pathology staff changes effective 07/14/2022. New pathology staff will provide uninterrupted, excellent patient care and clinical consultation. See URL: [email or web address]. UNLESS OTHERWISE INDICATED, ALL TESTING PERFORMED AT [facility] [address] [place] [id number] [employer]JUN[employer] PROFESSOR OF LAW: JONNY FREY M.D. [place] NUMBER [id number] [facility] [place]. [id number] 05:32:53* Test Item Value Reference Range Interpretation Comme nts RPR RESULT (test code = 3501) NON-REACTIVE NON-REACTIVE RPR TITER (test code = 3500) NOT INDIC. TITER NOT INDIC. [id number] 00:00:00* Test Item Value Reference Range Interpretation Comme nts RPR RESULT (test code = 3501) NON-REACTIVE RPR TITER (test code = 3500) NOT INDIC. TITER Jordan TrotterACUTE HEPATITIS [id number] 00:00:00* Test Item Value Reference Range Interpretation Comme nts HEPATITIS A IgM (test code = 95059) NON-REACTIVE HEPATITIS B CORE IgM (test c ode = 4644) NON-REACTIVE HEPATITIS B SURF AG (test co de = 2739) NON-REACTIVE HEPATITIS C ANTIBODY (test c ode = 4675) NON-REACTIVE INTERPRETATION HEPATITIS A: (test code = 2552) (NOTE) INTERPRETATION HEPATITIS B: (test code = 57039) (NOTE) INTERPRETATION HEPATITIS C: (test code = 27671) (NOTE) Jordan TrotterHIV 1/2 4TH GEN, RFLX [id number] 00:00:00* Test Item Value Reference Range Interpretation Comme nts HIV 1/2 4TH GEN, RFLX CONF ( test code = 3514) NON-REACTIVE Jordan [id number] 00:00:00* Test Item Value Reference Range Interpretation Comme nts RPR RESULT (test code = 3501) NON-REACTIVE RPR TITER (test code = 3500) NOT INDIC. TITER Jordan TrotterACUTE HEPATITIS [id number] 00:00:00* Test Item Value Reference Range Interpretation Comme nts HEPATITIS A IgM (test code = 99863) NON-REACTIVE HEPATITIS B CORE IgM (test c ode = 4644) NON-REACTIVE HEPATITIS B SURF AG (test co de = 2739) NON-REACTIVE HEPATITIS C ANTIBODY (test c ode = 4675) NON-REACTIVE INTERPRETATION HEPATITIS A: (test code = 2552) (NOTE) INTERPRETATION HEPATITIS B: (test code = 72097) (NOTE) INTERPRETATION HEPATITIS C: (test code = 46298) (NOTE) Jordan TrotterHIV 1/2 4TH GEN, RFLX [id number] 00:00:00* Test Item Value Reference Range Interpretation Comme nts HIV /2 4TH GEN, RFLX CONF ( test code = 3514) NON-REACTIVE Jordan TrotterPAP TEST, THINPREP, [id number] 15:51:45* Test Item Value Reference Range Interpretation Comme nts SOURCE: (test code = 8001) Cervical SLIDES: (test code = 8011) 1 LMP: (test code = 8021) 02/20/2022 SPECIMEN ADEQUACY: (test code = 06603) (NOTE) Satisfactory for evaluation. Endocervical cells/transformation zone component not identified. INTERPRETATION: (test code = 28779) NILM/NO EPITH. ABNORMALITY;SEE BELOW --- - NEGATIVE FOR INTRAEPITHELIAL LESION OR MALIGNANCY (NILM) ---- GREY TENDER : (test code = 8101) RADHA Elliott(ASCP)IA C LOCATION: (test code = 02727) (NOTE) Specimens proces sed and interpreted at [facility], [address] [facility] [place] [address], , CLIA: [id number] CPT: (test code = 8140) (NOTE) [address] UNLESS OTH ERWISE INDICATED, COMPUTER AIDED AND GREY TENDER SCREENING PERFORMED. The Pap test is a screening test with an inherent, but low probability of error. Your patient should be reminded to consult you immediately if she experiences any suspicious signs or symptoms, regardless of her Pap test result. An alternate report format containing images or consolidated prior Pap history is available as applicable. UNLESS OTHERWISE INDICATED, ALL TESTING PERFORMED [facility] [employer] [address] [place] [address] ADJUNCT PROFESSOR OF LAW: JONNY FREY M.D. CLIA NUMBER [id number] [facility] [place]. [id number] CULTURE, [id number] 00:00:00* Test Item Value Reference Range Interpretation Comme nts CULTURE, URINE (test code = 68720) SPECIMEN NUMBER: [id number] Jordan TrotterPAP TEST, THINPREP, [id number] 00:00:00* Test Item Value Reference Range Interpretation Comme nts SOURCE: (test code = 8001) Cervical SLIDES: (test code = 8011) 1 LMP: (test code = 8021) 02/20/2022 SPECIMEN ADEQUACY: (test code = 53080) (NOTE) INTERPRETATION: (test code = 95777) NILM/NO EPITH. ABNORMALITY;SEE BELOW GREY TENDER: (test code = 8101) [place], [place](ASCP)IAC LOCATION: (test code = 53428) (NOTE) CPT: (test code = 8140) (NOTE) Jordan TrotterCULTURE, [id number] 00:00:00* Test Item Value Reference Range Interpretation Comme nts CULTURE, URINE (test code = 57276) SPECIMEN NUMBER: [id number] Jordan TrotterPAP TEST, THINPREP, [id number] 00:00:00* Test Item Value Reference Range Interpretation Comme nts SOURCE: (test code = 8001) Cervical SLIDES: (test code = 8011) 1 LMP: (test code = 8021) 02/20/2022 SPECIMEN ADEQUACY: (test code = 97908) (NOTE) INTERPRETATION: (test code = 14959) NILM/NO EPITH. ABNORMALITY;SEE BELOW GREY TENDER: (test code = 8101) [place], [place](ASCP)IAC LOCATION: (test code = 18552) (NOTE) CPT: (test code = 8140) (NOTE) Jordan TrotterCT/NG, TMA, [id number] 00:00:00* Test Item Value Reference Range Interpretation Comme nts GONORRHEA, NAAT (test code = 15459) NEGATIVE CHLAMYDIA, NAAT (test code = 31427) NEGATIVE Jordan [id number] 00:00:00* Test Item Value Reference Range Interpretation Comme nts RPR RESULT (test code = 3501) NON-REACTIVE RPR TITER (test code = 3500) NOT INDIC. TITER Jordan TrotterVAGINAL PATHOGENS DNA [id number] 00:00:00* Test Item Value Reference Range Interpretation Comme nts SUZE SPECIES (test code = ) NEGATIVE G. VAGINALIS (test code = 69272) NEGATIVE T. VAGINALIS (test code = 91022) NEGATIVE Jordan TrotterACUTE HEPATITIS [id number] 00:00:00* Test Item Value Reference Range Interpretation Comme nts HEPATITIS A IgM (test code = 84296) NON-REACTIVE HEPATITIS B CORE IgM (test c ode = 4644) NON-REACTIVE HEPATITIS B SURF AG (test co de = 2739) NON-REACTIVE HEPATITIS C ANTIBODY (test c ode = 4675) NON-REACTIVE INTERPRETATION HEPATITIS A: (test code = 2552) (NOTE) INTERPRETATION HEPATITIS B: (test code = 12360) (NOTE) INTERPRETATION HEPATITIS C: (test code = 68640) (NOTE) Jordan Hoff AustinHIV 1/2 4TH GEN, RFLX [id number] 00:00:00* Test Item Value Reference Range Interpretation Comme nts HIV 1/2 4TH GEN, RFLX CONF ( test code = 3514) NON-REACTIVE Jordan Hoff AustinCT/NG, TMA, [id number] 00:00:00* Test Item Value Reference Range Interpretation Comme nts GONORRHEA, NAAT (test code = 75909) NEGATIVE CHLAMYDIA, NAAT (test code = 87456) NEGATIVE Jordan Hoff [id number] 00:00:00* Test Item Value Reference Range Interpretation Comme nts RPR RESULT (test code = 3501) NON-REACTIVE RPR TITER (test code = 3500) NOT INDIC. TITER Jordan TrotterVAGINAL PATHOGENS DNA [id number] 00:00:00* Test Item Value Reference Range Interpretation Comme nts SUZE SPECIES (test code = ) NEGATIVE G. VAGINALIS (test code = 73969) NEGATIVE T. VAGINALIS (test code = 32288) NEGATIVE Jordan TrotterACUTE HEPATITIS [id number] 00:00:00* Test Item Value Reference Range Interpretation Comme nts HEPATITIS A IgM (test code = 03506) NON-REACTIVE HEPATITIS B CORE IgM (test c ode = 4644) NON-REACTIVE HEPATITIS B SURF AG (test co de = 2739) NON-REACTIVE HEPATITIS C ANTIBODY (test c ode = 4675) NON-REACTIVE INTERPRETATION HEPATITIS A: (test code = 2552) (NOTE) INTERPRETATION HEPATITIS B: (test code = 92597) (NOTE) INTERPRETATION HEPATITIS C: (test code = 97837) (NOTE) Jordan TrotterHIV 1/2 4TH GEN, RFLX [id number] 00:00:00* Test Item Value Reference Range Interpretation Comme nts HIV 1/2 4TH GEN, RFLX CONF ( test code = 3514) NON-REACTIVE Jordan TrotterCT/NG, NAAT, [id number] 18:14:26* Test Item Value Reference Range Interpretation Comme nts GONORRHEA, NAAT (test code = 36123) POSITIVE NEGATIVE A IMPORTANT NO BEAR: SEE ANNOUNCEMENT AT [email or web address] [email or web address] Note: Assay methodology is nucleic acid amplification by registered nurse practitioner mediated amplification (TMA) utilizing the Aptima Combo 2 Assay. CHLAMYDIA, NAAT (test code = 90457) NEGATIVE NEGATIVE IMPORTANT NO BEAR: SEE ANNOUNCEMENT AT [email or web address] [email or web address] Note: Assay methodology is nucleic acid amplification by registered nurse practitioner mediated amplification (TMA) utilizing the Aptima Combo 2 Assay. TRICHOMONAS, NAAT, [id number] 15:11:22* Test Item Value Reference Range Interpretation Comme nts TRICHOMONAS, NAAT (test code = 29392) NEGATIVE NEGATIVE IMPORTANT NO BEAR: SEE ANNOUNCEMENT AT [email or web address] Note: Assay methodology is nucleic acid amplification by registered nurse practitioner mediated amplification (TMA) and Hybridization Protection Assay (HPA) utilizing the Trulia platform. A negative result does not exclude low level infection, specimensampling error, or collection error. UNLESS OTHERWISE INDICATED, ALL TESTING PERFORMED [facility] [address] [place] [address] ADJUNCT PROFESSOR OF LAW: JONNY FREY M.D. [place] NUMBER [id number] [facility]. [id number] 03:09:46* Test Item Value Reference Range Interpretation Comme nts RPR RESULT (test code = 3501) NON-REACTIVE NON-REACTIVE RPR TITER (test code = 3500) NOT INDIC. TITER NOT INDIC. HIV 1/2 4TH GEN, RFLX [id number] 02:57:16* Test Item Value Reference Range Interpretation Comme nts HIV 1/2 4TH GEN, RFLX CONF ( test code = 3514) NON-REACTIVE NON-REACTIVE HEPATITIS PANEL, [id number] 02:57:16* Test Item Value Reference Range Interpretation Comme nts HEPATITIS A IgM (test code = 29991) NON-REACTIVE NON-REACTIVE HEPATITIS B CORE IgM (test code = 4644) NON-REACTIVE NON-REACTIVE HEPATITIS B SURF AG (test code = 2739) NON-REACTIVE NON-REACTIVE HEPATITIS C ANTIBODY (test code = 4675) NON-REACTIVE NON-REACTIVE INTERPRETATION HEPATITIS A: (test code = 2552) (NOTE) Hepatitis A serology shows no evidence of acute hepatitis A. INTERPRETATION HEPATITIS B: (test code = 34852) (NOTE) Hepatitis B serology shows no evidence of acute hepatitis B andno indication of exposure to hepatitis B virus in the previous karla eight months. INTERPRETATION HEPATITIS C: (test code = 74695) (NOTE) Hepatitis C serology shows no evidence of exposure to hepatitisC virus at this time. It can take up to 12 months after exposure tothe hepatitis C virus for antibodies to become detectable in the blood in certain patients. CT/NG, TMA, [id number] 00:00:00* Test Item Value Reference Range Interpretation Comme nts GONORRHEA, NAAT (test code = 43153) POSITIVE CHLAMYDIA, NAAT (test code = 44969) NEGATIVE Jordan TrotterTRICHOMONAS, URINE, [id number] 00:00:00* Test Item Value Reference Range Interpretation Comme nts TRICHOMONAS, NAAT (test code = 88854) NEGATIVE Jordan [id number] 00:00:00* Test Item Value Reference Range Interpretation Comme nts RPR RESULT (test code = 3501) NON-REACTIVE RPR TITER (test code = 3500) NOT INDIC. TITER Jordan TrotterHIV AB/AG COMBO RFLX [id number] 00:00:00* Test Item Value Reference Range Interpretation Comme nts HIV 1/2 4TH GEN, RFLX CONF ( test code = 3514) NON-REACTIVE Jordan TrotterACUTE HEPATITIS [id number] 00:00:00* Test Item Value Reference Range Interpretation Comme nts HEPATITIS A IgM (test code = 66809) NON-REACTIVE HEPATITIS B CORE IgM (test c ode = 4644) NON-REACTIVE HEPATITIS B SURF AG (test co de = 2739) NON-REACTIVE HEPATITIS C ANTIBODY (test c ode = 4675) NON-REACTIVE INTERPRETATION HEPATITIS A: (test code = 2552) (NOTE) INTERPRETATION HEPATITIS B: (test code = 86662) (NOTE) INTERPRETATION HEPATITIS C: (test code = 11684) (NOTE) Jordan TrotterCT/NG, TMA, [id number] 00:00:00* Test Item Value Reference Range Interpretation Comme nts GONORRHEA, NAAT (test code = 47978) POSITIVE CHLAMYDIA, NAAT (test code = 74809) NEGATIVE Jordan TrotterTRICHOMONAS, URINE, [id number] 00:00:00* Test Item Value Reference Range Interpretation Comme nts TRICHOMONAS, NAAT (test code = 01073) NEGATIVE Jordan [id number] 00:00:00* Test Item Value Reference Range Interpretation Comme nts RPR RESULT (test code = 3501) NON-REACTIVE RPR TITER (test code = 3500) NOT INDIC. TITER Jordan Hoff [id number] 00:00:00* Test Item Value Reference Range Interpretation Comme nts RPR RESULT (test code = 3501) NON-REACTIVE RPR TITER (test code = 3500) NOT INDIC. TITER HIV AB/AG COMBO RFLX [id number] 00:00:00* Test Item Value Reference Range Interpretation Comme nts HIV 1/2 4TH GEN, RFLX CONF ( test code = 3514) NON-REACTIVE ACUTE HEPATITIS [id number] 00:00:00* Test Item Value Reference Range Interpretation Comme nts HEPATITIS A IgM (test code = 56431) NON-REACTIVE HEPATITIS B CORE IgM (test c ode = 4644) NON-REACTIVE HEPATITIS B SURF AG (test co de = 2739) NON-REACTIVE HEPATITIS C ANTIBODY (test c ode = 4675) NON-REACTIVE INTERPRETATION HEPATITIS A: (test code = 2552) (NOTE) INTERPRETATION HEPATITIS B: (test code = 70561) (NOTE) INTERPRETATION HEPATITIS C: (test code = 70562) (NOTE) CT/NG, TMA, [id number] 00:00:00* Test Item Value Reference Range Interpretation Comme nts GONORRHEA, NAAT (test code = 36038) POSITIVE CHLAMYDIA, NAAT (test code = 47459) NEGATIVE TRICHOMONAS, URINE, [id number] 00:00:00* Test Item Value Reference Range Interpretation Comme nts TRICHOMONAS, NAAT (test code = 79002) NEGATIVE HIV AB/AG COMBO RFLX [id number] 00:00:00* Test Item Value Reference Range Interpretation Comme nts HIV 1/2 4TH GEN, RFLX CONF ( test code = 3514) NON-REACTIVE Jordan F [id number] 00:00:00* Test Item Value Reference Range Interpretation Comme nts RPR RESULT (test code = 3501) NON-REACTIVE RPR TITER (test code = 3500) NOT INDIC. TITER HIV AB/AG COMBO RFLX [id number] 00:00:00* Test Item Value Reference Range Interpretation Comme nts HIV 1/2 4TH GEN, RFLX CONF ( test code = 3514) NON-REACTIVE ACUTE HEPATITIS [id number] 00:00:00* Test Item Value Reference Range Interpretation Comme nts HEPATITIS A IgM (test code = 01841) NON-REACTIVE HEPATITIS B CORE IgM (test c ode = 4644) NON-REACTIVE HEPATITIS B SURF AG (test co de = 2739) NON-REACTIVE HEPATITIS C ANTIBODY (test c ode = 4675) NON-REACTIVE INTERPRETATION HEPATITIS A: (test code = 2552) (NOTE) INTERPRETATION HEPATITIS B: (test code = 22931) (NOTE) INTERPRETATION HEPATITIS C: (test code = 56431) (NOTE) CT/NG, TMA, [id number] 00:00:00* Test Item Value Reference Range Interpretation Comme nts GONORRHEA, NAAT (test code = 65419) POSITIVE CHLAMYDIA, NAAT (test code = 35495) NEGATIVE TRICHOMONAS, URINE, [id number] 00:00:00* Test Item Value Reference Range Interpretation Comme nts TRICHOMONAS, NAAT (test code = 80017) NEGATIVE ACUTE HEPATITIS [id number] 00:00:00* Test Item Value Reference Range Interpretation Comme nts HEPATITIS A IgM (test code = 53770) NON-REACTIVE HEPATITIS B CORE IgM (test c ode = 4644) NON-REACTIVE HEPATITIS B SURF AG (test co de = 2739) NON-REACTIVE HEPATITIS C ANTIBODY (test c ode = 4675) NON-REACTIVE INTERPRETATION HEPATITIS A: (test code = 2552) (NOTE) INTERPRETATION HEPATITIS B: (test code = 32101) (NOTE) INTERPRETATION HEPATITIS C: (test code = 11643) (NOTE) Jordan Luis Eduardo AustinVAGINAL PATHOGENS DNA [id number] 10:04:37* Test Item Value Reference Range Interpretation Comme nts SUZE SPECIES (test code = 60636) POSITIVE NEGATIVE A G. VAGINALIS (test code = 19144) NEGATIVE NEGATIVE T. VAGINALIS (test code = 14702) NEGATIVE NEGATIVE VAGINAL PATHOGENS DNA [id number] 00:00:00* Test Item Value Reference Range Interpretation Comme nts SUZE SPECIES (test code = 54837) POSITIVE G. VAGINALIS (test code = 62952) NEGATIVE T. VAGINALIS (test code = 16625) NEGATIVE Jordan Hoff AustinVAGINAL PATHOGENS DNA [id number] 00:00:00* Test Item Value Reference Range Interpretation Comme nts SUZE SPECIES (test code = 01951) POSITIVE G. VAGINALIS (test code = 87520) NEGATIVE T. VAGINALIS (test code = 62773) NEGATIVE VAGINAL PATHOGENS DNA [id number] 00:00:00* Test Item Value Reference Range Interpretation Comme nts SUZE SPECIES (test code = 74755) POSITIVE G. VAGINALIS (test code = 87536) NEGATIVE T. VAGINALIS (test code = 05054) NEGATIVE Jordan Hoff AustinVAGINAL PATHOGENS DNA [id number] 00:00:00* Test Item Value Reference Range Interpretation Comme nts SUZE SPECIES (test code = 38651) POSITIVE G. VAGINALIS (test code = 66941) NEGATIVE T. VAGINALIS (test code = 93260) NEGATIVE VAGINAL PATHOGENS DNA [id number] 00:00:00* Test Item Value Reference Range Interpretation Comme nts SUZE SPECIES (test code = 06754) POSITIVE G. VAGINALIS (test code = ) NEGATIVE T. VAGINALIS (test code = ) NEGATIVE GONORRHEA, NAAT, [id number] 08:21:43* Test Item Value Reference Range Interpretation Comme nts GONORRHEA, NAAT (test code = 25425) NEGATIVE NEGATIVE IMPORTANT NO BEAR: SEE ANNOUNCEMENT AT [email or web address] ApplyMapobasUrineKit Note: Assay methodology is nucleic acid amplification by registered nurse practitioner mediated amplification (TMA) utilizing the Aptima Combo 2 Assay. CHLAMYDIA, NAAT, [id number] 08:21:43* Test Item Value Reference Range Interpretation Comme nts CHLAMYDIA, NAAT (test code = 89832) NEGATIVE NEGATIVE IMPORTANT NO BEAR: SEE ANNOUNCEMENT AT [email or web address] [email or web address] Note: Assay methodology is nucleic acid amplification by registered nurse practitioner mediated amplification (TMA) utilizing the Aptima Combo 2 Assay. CHLAMYDIA, AMPLIFIED, [id number] 00:00:00* Test Item Value Reference Range Interpretation Comme nts CHLAMYDIA, NAAT (test code = 73400) NEGATIVE Jordan F AustinGC, AMPLIFIED, [id number] 00:00:00* Test Item Value Reference Range Interpretation Comme nts GONORRHEA, NAAT (test code = 67408) NEGATIVE Jordan F AustinCHLAMYDIA, AMPLIFIED, [id number] 00:00:00* Test Item Value Reference Range Interpretation Comme nts CHLAMYDIA, NAAT (test code = 91905) NEGATIVE Jordan F AustinGC, AMPLIFIED, [id number] 00:00:00* Test Item Value Reference Range Interpretation Comme nts GONORRHEA, NAAT (test code = 06387) NEGATIVE Jordan F AustinCHLAMYDIA, AMPLIFIED, [id number] 00:00:00* Test Item Value Reference Range Interpretation Comme nts CHLAMYDIA, NAAT (test code = 35458) NEGATIVE GC, AMPLIFIED, [id number] 00:00:00* Test Item Value Reference Range Interpretation Comme nts GONORRHEA, NAAT (test code = 28617) NEGATIVE CHLAMYDIA, AMPLIFIED, [id number] 00:00:00* Test Item Value Reference Range Interpretation Comme nts CHLAMYDIA, NAAT (test code = 55752) NEGATIVE GC, AMPLIFIED, [id number] 00:00:00* Test Item Value Reference Range Interpretation Comme nts GONORRHEA, NAAT (test code = 26433) NEGATIVE CHLAMYDIA, AMPLIFIED, [id number] 00:00:00* Test Item Value Reference Range Interpretation Comme nts CHLAMYDIA, NAAT (test code = 13330) NEGATIVE GC, AMPLIFIED, [id number] 00:00:00* Test Item Value Reference Range Interpretation Comme nts GONORRHEA, NAAT (test code = 21438) NEGATIVE HEMOGLOBIN [id number] 06:10:22* Test Item Value Reference Range Interpretation Comme nts HEMOGLOBIN A1c (test code = 20940) 5.2 % 4.2-5.6 CBC W/AUTO DIFF WITH [id number] 05:31:54* Test Item Value Reference Range Interpretation [...] 0.00-0.10 ABS NUCLEATED RBCS (test code = 65311) 0.00 K/UL 0.00-0.11 HIV 1/2 4TH GEN, RFLX [id number] 04:04:35* Test Item Value Reference Range Interpretation Comme nts HIV 1/2 4TH GEN, RFLX CONF ( test code = 3514) NON-REACTIVE NON-REACTIVE HEPATITIS PANEL, [id number] 04:04:35* Test Item Value Reference Range Interpretation Comme nts HEPATITIS A IgM (test code = 39844) NON-REACTIVE NON-REACTIVE HEPATITIS B CORE IgM (test code = 4644) NON-REACTIVE NON-REACTIVE HEPATITIS B SURF AG (test code = 2739) NON-REACTIVE NON-REACTIVE HEPATITIS C ANTIBODY (test code = 4675) NON-REACTIVE NON-REACTIVE INTERPRETATION HEPATITIS A: (test code = 2552) (NOTE) Hepatitis A serology shows no evidence of acute hepatitis A. INTERPRETATION HEPATITIS B: (test code = 58130) (NOTE) Hepatitis B serology shows no evidence of acute hepatitis B andno indication of exposure to hepatitis B virus in the previous karla eight months. INTERPRETATION HEPATITIS C: (test code = 38960) (NOTE) Hepatitis C serology shows no evidence of exposure to hepatitisC virus at this time. It can take up to 12 months after exposure tothe hepatitis C virus for antibodies to become detectable in the blood in certain patients. [id number] 02:50:30* Test Item Value Reference Range Interpretation Comme nts RPR RESULT (test code = 3501) NON-REACTIVE NON-REACTIVE RPR TITER (test code = 3500) NOT INDIC. TITER NOT INDIC. UNLESS OTHERWISE INDICATED, ALL TESTING PERFORMED [facility] [employer] [address] [place] [address] ADJUNCT PROFESSOR OF LAW: JONNY FREY M.D. [place] NUMBER [id number] [facility] [place]. [id number] HIV AB/AG COMBO RFLX [id number] 00:00:00* Test Item Value Reference Range Interpretation Comme nts HIV 1/2 4TH GEN, RFLX CONF ( test code = 3514) NON-REACTIVE Jordan TrotterACUTE HEPATITIS [id number] 00:00:00* Test Item Value Reference Range Interpretation Comme nts HEPATITIS A IgM (test code = 28559) NON-REACTIVE HEPATITIS B CORE IgM (test c ode = 4644) NON-REACTIVE HEPATITIS B SURF AG (test co de = 2739) NON-REACTIVE HEPATITIS C ANTIBODY (test c ode = 4675) NON-REACTIVE INTERPRETATION HEPATITIS A: (test code = 2552) (NOTE) INTERPRETATION HEPATITIS B: (test code = 15236) (NOTE) INTERPRETATION HEPATITIS C: (test code = 50208) (NOTE) Jordan [id number] 00:00:00* Test Item Value Reference Range Interpretation Comme nts RPR RESULT (test code = 3501) NON-REACTIVE RPR TITER (test code = 3500) NOT INDIC. TITER Jordan TrotterCBC W/AUTO [id number] 00:00:00* Test Item Value Reference Range Interpretation [...] ABS NUCLEATED RBCS (test cod e = 15027) 0.00 K/UL Jordan TrotterHEMOGLOBIN [id number] 00:00:00* Test Item Value Reference Range Interpretation Comme nts HEMOGLOBIN A1c (test code = 01141) 5.2 % Jordan TrotterHIV AB/AG COMBO RFLX [id number] 00:00:00* Test Item Value Reference Range Interpretation Comme nts HIV 1/2 4TH GEN, RFLX CONF ( test code = 3514) NON-REACTIVE Jordan TrotterACUTE HEPATITIS [id number] 00:00:00* Test Item Value Reference Range Interpretation Comme nts HEPATITIS A IgM (test code = 00909) NON-REACTIVE HEPATITIS B CORE IgM (test c ode = 4644) NON-REACTIVE HEPATITIS B SURF AG (test co de = 2739) NON-REACTIVE HEPATITIS C ANTIBODY (test c ode = 4675) NON-REACTIVE INTERPRETATION HEPATITIS A: (test code = 2552) (NOTE) INTERPRETATION HEPATITIS B: (test code = 14914) (NOTE) INTERPRETATION HEPATITIS C: (test code = 39956) (NOTE) Jordan [id number] 00:00:00* Test Item Value Reference Range Interpretation Comme nts RPR RESULT (test code = 3501) NON-REACTIVE RPR TITER (test code = 3500) NOT INDIC. TITER Jordan TrotterCBC W/AUTO [id number] 00:00:00* Test Item Value Reference Range Interpretation [...] ABS NUCLEATED RBCS (test cod e = 38055) 0.00 K/UL HEMOGLOBIN [id number] 00:00:00* Test Item Value Reference Range Interpretation Comme [facility] HEMOGLOBIN A1c (test code = 63822) 5.2 % HIV AB/AG COMBO RFLX [id number] 00:00:00* Test Item Value Reference Range Interpretation Comme [facility] HIV 1/2 4TH GEN, RFLX CONF ( test code = 3514) NON-REACTIVE ACUTE HEPATITIS [id number] 00:00:00* Test Item Value Reference Range Interpretation Comme [facility] HEPATITIS A IgM (test code = 01181) NON-REACTIVE HEPATITIS B CORE IgM (test c ode = 4644) NON-REACTIVE HEPATITIS B SURF AG (test co de = 5469) NON-REACTIVE HEPATITIS C ANTIBODY (test c ode = 4696) NON-REACTIVE INTERPRETATION HEPATITIS A: (test code = 2552) (NOTE) INTERPRETATION HEPATITIS B: (test code = 35961) (NOTE) INTERPRETATION HEPATITIS C: (test code = 69120) (NOTE) [id number] 00:00:00* Test Item Value Reference Range Interpretation Comme nts RPR RESULT (test code = 3501) NON-REACTIVE RPR TITER (test code = 3500) NOT INDIC. TITER CBC W/AUTO [id number] 00:00:00* Test Item Value Reference Range Interpretation [...] ABS NUCLEATED RBCS (test cod e = 13870) 0.00 K/UL Jordan Hoff JvCBC W/AUTO [id number] 00:00:00* Test Item Value Reference Range Interpretation [...] ABS NUCLEATED RBCS (test cod e = 31279) 0.00 K/UL HEMOGLOBIN [id number] 00:00:00* Test Item Value Reference Range Interpretation Comme nts HEMOGLOBIN A1c (test code = 03171) 5.2 % HIV AB/AG COMBO RFLX [id number] 00:00:00* Test Item Value Reference Range Interpretation Comme nts HIV 1/2 4TH GEN, RFLX CONF ( test code = 3514) NON-REACTIVE ACUTE HEPATITIS [id number] 00:00:00* Test Item Value Reference Range Interpretation Comme nts HEPATITIS A IgM (test code = 31153) NON-REACTIVE HEPATITIS B CORE IgM (test c ode = 4699) NON-REACTIVE HEPATITIS B SURF AG (test co de = 2739) NON-REACTIVE HEPATITIS C ANTIBODY (test c ode = 4623) NON-REACTIVE INTERPRETATION HEPATITIS A: (test code = 2552) (NOTE) INTERPRETATION HEPATITIS B: (test code = 94396) (NOTE) INTERPRETATION HEPATITIS C: (test code = 66745) (NOTE) [id number] 00:00:00* Test Item Value Reference Range Interpretation Comme nts RPR RESULT (test code = 3501) NON-REACTIVE RPR TITER (test code = 3500) NOT INDIC. TITER CBC W/AUTO [id number] 00:00:00* Test Item Value Reference Range Interpretation [...] ABS NUCLEATED RBCS (test cod e = 46151) 0.00 K/UL HEMOGLOBIN [id number] 00:00:00* Test Item Value Reference Range Interpretation Comme nts HEMOGLOBIN A1c (test code = 50024) 5.2 % HIV AB/AG COMBO RFLX [id number] 00:00:00* Test Item Value Reference Range Interpretation Comme nts HIV 1/2 4TH GEN, RFLX CONF ( test code = 3514) NON-REACTIVE ACUTE HEPATITIS [id number] 00:00:00* Test Item Value Reference Range Interpretation Comme nts HEPATITIS A IgM (test code = 58168) NON-REACTIVE HEPATITIS B CORE IgM (test c ode = 4644) NON-REACTIVE HEPATITIS B SURF AG (test co de = 2739) NON-REACTIVE HEPATITIS C ANTIBODY (test c ode = 4618) NON-REACTIVE INTERPRETATION HEPATITIS A: (test code = 2552) (NOTE) INTERPRETATION HEPATITIS B: (test code = 06124) (NOTE) INTERPRETATION HEPATITIS C: (test code = 06659) (NOTE) [id number] 00:00:00* Test Item Value Reference Range Interpretation Comme nts RPR RESULT (test code = 3501) NON-REACTIVE RPR TITER (test code = 3500) NOT INDIC. TITER HEMOGLOBIN [id number] 00:00:00* Test Item Value Reference Range Interpretation Comme nts HEMOGLOBIN A1c (test code = 43224) 5.2 % Jordan F AustinCT/NG, NAAT, [id number] 18:09:18* Test Item Value Reference Range Interpretation Comme nts GONORRHEA, NAAT (test code = 54083) NEGATIVE NEGATIVE IMPORTANT NO BEAR: SEE ANNOUNCEMENT AT [email or web address] Note: Assay methodology is nucleic acid amplification by registered nurse practitioner mediated amplification (TMA) utilizing the Aptima Combo 2 Assay. CHLAMYDIA, NAAT (test code = 91256) NEGATIVE NEGATIVE IMPORTANT NO BEAR: SEE ANNOUNCEMENT AT [email or web address] Note: Assay methodology is nucleic acid amplification by registered nurse practitioner mediated amplification (TMA) utilizing the Aptima Combo 2 Assay. VAGINAL PATHOGENS DNA [id number] 15:05:08* Test Item Value Reference Range Interpretation Comme nts SUZE SPECIES (test code = 59392) NEGATIVE NEGATIVE G. VAGINALIS (test code = 42024) POSITIVE NEGATIVE A T. VAGINALIS (test code = 02432) NEGATIVE NEGATIVE [id number] 05:20:25* Test Item Value Reference Range Interpretation Comme nts RPR RESULT (test code = 3501) NON-REACTIVE NON-REACTIVE RPR TITER (test code = 3500) NOT INDIC. TITER NOT INDIC. UNLESS OTHERWISE INDICATED, ALL TESTING PERFORMED [facility] [address] [place] [address] ADJUNCT PROFESSOR OF LAW: JONNY FREY M.D. [place] NUMBER [id number] [facility] [place]. [id number] HIV 1/2 4TH GEN, RFLX [id number] 04:05:17* Test Item Value Reference Range Interpretation Comme nts HIV 1/2 4TH GEN, RFLX CONF ( test code = 3514) NON-REACTIVE NON-REACTIVE HEPATITIS PANEL, [id number] 04:05:17* Test Item Value Reference Range Interpretation Comme nts HEPATITIS A IgM (test code = 95051) NON-REACTIVE NON-REACTIVE HEPATITIS B CORE IgM (test code = 4644) NON-REACTIVE NON-REACTIVE HEPATITIS B SURF AG (test code = 2739) NON-REACTIVE NON-REACTIVE HEPATITIS C ANTIBODY (test code = 4675) NON-REACTIVE NON-REACTIVE INTERPRETATION HEPATITIS A: (test code = 2552) (NOTE) Hepatitis A serology shows no evidence of acute hepatitis A. INTERPRETATION HEPATITIS B: (test code = 76659) (NOTE) Hepatitis B serology shows no evidence of acute hepatitis B andno indication of exposure to hepatitis B virus in the previous karla eight months. INTERPRETATION HEPATITIS C: (test code = 50974) (NOTE) Hepatitis C serology shows no evidence of exposure to hepatitisC virus at this time. It can take up to 12 months after exposure tothe hepatitis C virus for antibodies to become detectable in the blood in certain patients. GC AND CHLAMYDIA, AMPLIFIED, [id number] 00:00:00* Test Item Value Reference Range Interpretation Comme nts GONORRHEA, NAAT (test code = 57321) NEGATIVE CHLAMYDIA, NAAT (test code = 46078) NEGATIVE Jordan Luis Eduardo [id number] 00:00:00* Test Item Value Reference Range Interpretation Comme nts RPR RESULT (test code = 3501) NON-REACTIVE RPR TITER (test code = 3500) NOT INDIC. TITER Jordan TrotterVAGINAL PATHOGENS DNA [id number] 00:00:00* Test Item Value Reference Range Interpretation Comme nts SUZE SPECIES (test code = 30565) NEGATIVE G. VAGINALIS (test code = ) POSITIVE T. VAGINALIS (test code = ) NEGATIVE Jordan TrotterHIV AB/AG COMBO RFLX [id number] 00:00:00* Test Item Value Reference Range Interpretation Comme nts HIV 1/2 4TH GEN, RFLX CONF ( test code = 3514) NON-REACTIVE Jordan TrotterACUTE HEPATITIS [id number] 00:00:00* Test Item Value Reference Range Interpretation Comme nts HEPATITIS A IgM (test code = 83902) NON-REACTIVE HEPATITIS B CORE IgM (test c ode = 4644) NON-REACTIVE HEPATITIS B SURF AG (test co de = 2739) NON-REACTIVE HEPATITIS C ANTIBODY (test c ode = 4675) NON-REACTIVE INTERPRETATION HEPATITIS A: (test code = 2552) (NOTE) INTERPRETATION HEPATITIS B: (test code = 39657) (NOTE) INTERPRETATION HEPATITIS C: (test code = 56268) (NOTE) Jordan TrotterGC AND CHLAMYDIA, AMPLIFIED, [id number] 00:00:00* Test Item Value Reference Range Interpretation Comme nts GONORRHEA, NAAT (test code = 02860) NEGATIVE CHLAMYDIA, NAAT (test code = 86670) NEGATIVE Jordan [id number] 00:00:00* Test Item Value Reference Range Interpretation Comme nts RPR RESULT (test code = 3501) NON-REACTIVE RPR TITER (test code = 3500) NOT INDIC. TITER Jordan TrotterVAGINAL PATHOGENS DNA [id number] 00:00:00* Test Item Value Reference Range Interpretation Comme nts SUZE SPECIES (test code = 48869) NEGATIVE G. VAGINALIS (test code = 06611) POSITIVE T. VAGINALIS (test code = 14200) NEGATIVE Jordan TrotterHIV AB/AG COMBO RFLX [id number] 00:00:00* Test Item Value Reference Range Interpretation Comme nts HIV 1/2 4TH GEN, RFLX CONF ( test code = 3514) NON-REACTIVE ACUTE HEPATITIS [id number] 00:00:00* Test Item Value Reference Range Interpretation Comme nts HEPATITIS A IgM (test code = 84950) NON-REACTIVE HEPATITIS B CORE IgM (test c ode = 4644) NON-REACTIVE HEPATITIS B SURF AG (test co de = 2739) NON-REACTIVE HEPATITIS C ANTIBODY (test c ode = 4675) NON-REACTIVE INTERPRETATION HEPATITIS A: (test code = 2552) (NOTE) INTERPRETATION HEPATITIS B: (test code = 26722) (NOTE) INTERPRETATION HEPATITIS C: (test code = 67761) (NOTE) GC AND CHLAMYDIA, AMPLIFIED, [id number] 00:00:00* Test Item Value Reference Range Interpretation Comme nts GONORRHEA, NAAT (test code = 54945) NEGATIVE CHLAMYDIA, NAAT (test code = 11670) NEGATIVE [id number] 00:00:00* Test Item Value Reference Range Interpretation Comme nts RPR RESULT (test code = 3501) NON-REACTIVE RPR TITER (test code = 3500) NOT INDIC. TITER VAGINAL PATHOGENS DNA [id number] 00:00:00* Test Item Value Reference Range Interpretation Comme nts SUZE SPECIES (test code = 48063) NEGATIVE G. VAGINALIS (test code = 10310) POSITIVE T. VAGINALIS (test code = 49514) NEGATIVE HIV AB/AG COMBO RFLX [id number] 00:00:00* Test Item Value Reference Range Interpretation Comme nts HIV 1/2 4TH GEN, RFLX CONF ( test code = 3514) NON-REACTIVE Jordan F AustinHIV AB/AG COMBO RFLX [id number] 00:00:00* Test Item Value Reference Range Interpretation Comme nts HIV 1/2 4TH GEN, RFLX CONF ( test code = 3514) NON-REACTIVE ACUTE HEPATITIS [id number] 00:00:00* Test Item Value Reference Range Interpretation Comme nts HEPATITIS A IgM (test code = 79679) NON-REACTIVE HEPATITIS B CORE IgM (test c ode = 4644) NON-REACTIVE HEPATITIS B SURF AG (test co de = 2739) NON-REACTIVE HEPATITIS C ANTIBODY (test c ode = 4675) NON-REACTIVE INTERPRETATION HEPATITIS A: (test code = 2552) (NOTE) INTERPRETATION HEPATITIS B: (test code = 74053) (NOTE) INTERPRETATION HEPATITIS C: (test code = 70312) (NOTE) GC AND CHLAMYDIA, AMPLIFIED, [id number] 00:00:00* Test Item Value Reference Range Interpretation Comme nts GONORRHEA, NAAT (test code = 90518) NEGATIVE CHLAMYDIA, NAAT (test code = 69085) NEGATIVE [id number] 00:00:00* Test Item Value Reference Range Interpretation Comme nts RPR RESULT (test code = 3501) NON-REACTIVE RPR TITER (test code = 3500) NOT INDIC. TITER VAGINAL PATHOGENS DNA [id number] 00:00:00* Test Item Value Reference Range Interpretation Comme nts SUZE SPECIES (test code = ) NEGATIVE G. VAGINALIS (test code = 75936) POSITIVE T. VAGINALIS (test code = 98900) NEGATIVE HIV AB/AG COMBO RFLX [id number] 00:00:00* Test Item Value Reference Range Interpretation Comme nts HIV 1/2 4TH GEN, RFLX CONF ( test code = 3514) NON-REACTIVE ACUTE HEPATITIS [id number] 00:00:00* Test Item Value Reference Range Interpretation Comme nts HEPATITIS A IgM (test code = 68573) NON-REACTIVE HEPATITIS B CORE IgM (test c ode = 4644) NON-REACTIVE HEPATITIS B SURF AG (test co de = 2739) NON-REACTIVE HEPATITIS C ANTIBODY (test c ode = 4675) NON-REACTIVE INTERPRETATION HEPATITIS A: (test code = 2552) (NOTE) INTERPRETATION HEPATITIS B: (test code = 46947) (NOTE) INTERPRETATION HEPATITIS C: (test code = 26703) (NOTE) GC AND CHLAMYDIA, AMPLIFIED, [id number] 00:00:00* Test Item Value Reference Range Interpretation Comme nts GONORRHEA, NAAT (test code = 38044) NEGATIVE CHLAMYDIA, NAAT (test code = 93202) NEGATIVE [id number] 00:00:00* Test Item Value Reference Range Interpretation Comme nts RPR RESULT (test code = 3501) NON-REACTIVE RPR TITER (test code = 3500) NOT INDIC. TITER VAGINAL PATHOGENS DNA [id number] 00:00:00* Test Item Value Reference Range Interpretation Comme nts SUZE SPECIES (test code = ) NEGATIVE G. VAGINALIS (test code = 91117) POSITIVE T. VAGINALIS (test code = 75858) NEGATIVE ACUTE HEPATITIS [id number] 00:00:00* Test Item Value Reference Range Interpretation Comme nts HEPATITIS A IgM (test code = 70107) NON-REACTIVE HEPATITIS B CORE IgM (test c ode = 4644) NON-REACTIVE HEPATITIS B SURF AG (test co de = 2739) NON-REACTIVE HEPATITIS C ANTIBODY (test c ode = 4675) NON-REACTIVE INTERPRETATION HEPATITIS A: (test code = 2552) (NOTE) INTERPRETATION HEPATITIS B: (test code = 09112) (NOTE) INTERPRETATION HEPATITIS C: (test code = 25583) (NOTE) Jordan LaraRS-CoV-2 (COVID-19), RT-[id number] 15:37:51* Test Item Value Reference Range Interpretation Comments SARS-CoV-2 INTERPRETATION (test code = 40996) NEGATIVE SEE NOTE SARS-CoV-2 R NA NOT [...] prevalence is high. SOURCE (test code = 52153) NASOPHARYNGEAL Note: Methodolog y is Allyssa Miguel Angel Real-Time RT-PCR. The expected result or reference range is NEGATIVE (Not Detected). For more information regarding COVID-19 testing to include clinicalinformation, methodology detail, intended use, FDA authorization andrecommended fact sheets for patients or healthcare providers, see [employer] Announcement: SARS-CoV-2 (COVID-19) by NAAT at URL below (note,fact sheets are provided by method given in report:[email or web address] Alternatively, see downloadable PDF fact sheet at:[email or web address] UNLESS OTHERWISE INDICATED, ALL TESTING PERFORMED [facility] [employer] [address] [place] [address] ADJUNCT PROFESSOR OF LAW: JONNY FREY M.D. CLIA NUMBER [id number] [place]. [id number] SARS-CoV-2 (COVID-19) by RT-PCR (HIGH RISK)2021-06-04 00:00:00* Test Item Value Reference Range Interpretation Comme nts SARS-CoV-2 INTERPRETATION (test code = 73481) NEGATIVE SOURCE (test code = 27198) NASOPHARYNGEAL Jordan F [id number] (COVID-19) by RT-PCR (HIGH RISK)2021-06-04 00:00:00* Test Item Value Reference Range Interpretation Comme nts SARS-CoV-2 INTERPRETATION (test code = 79520) NEGATIVE SOURCE (test code = 63123) NASOPHARYNGEAL Jordan F [id number] (COVID-19) by RT-PCR (HIGH RISK)2021-06-04 00:00:00* Test Item Value Reference Range Interpretation Comme nts SARS-CoV-2 INTERPRETATION (test code = 72494) NEGATIVE SOURCE (test code = 59769) NASOPHARYNGEAL SARS-CoV-2 (COVID-19) by RT-PCR (HIGH RISK)2021-06-04 00:00:00* Test Item Value Reference Range Interpretation Comme nts SARS-CoV-2 INTERPRETATION (test code = 62299) NEGATIVE SOURCE (test code = 09936) NASOPHARYNGEAL SARS-CoV-2 (COVID-19) by RT-PCR (HIGH RISK)2021-06-04 00:00:00* Test Item Value Reference Range Interpretation Comme nts SARS-CoV-2 INTERPRETATION (test code = 29522) NEGATIVE SOURCE (test code = 68435) NASOPHARYNGEAL CT/NG, NAAT, [id number] 11:27:50* Test Item Value Reference Range Interpretation Comme nts GONORRHEA, NAAT (test code = 95975) POSITIVE, SEE BELOW NEGATIVE A IMPORTANT NOTICE : SEE ANNOUNCEMENT AT [email or web address] Note: Assay methodology is nucleic acid amplification by registered nurse practitioner mediated amplification (TMA) utilizing the Aptima Combo 2 Assay. IMPORTANT NOTICE: SEE ANNOUNCEMENT AT [email or web address] Note: Assay methodology is nucleic acid amplification by registered nurse practitioner mediated amplification (TMA) utilizing the Aptima Combo 2 Assay. Positive results repeated and confirmed. CHLAMYDIA, NAAT (test code = 83020) POSITIVE, SEE BELOW NEGATIVE A IMPORTANT NOTICE : SEE ANNOUNCEMENT AT [email or web address] [email or web address] Note: Assay methodology is nucleic acid amplification by registered nurse practitioner mediated amplification (TMA) utilizing the Aptima Combo 2 Assay. IMPORTANT NOTICE: SEE ANNOUNCEMENT AT [email or web address] Note: Assay methodology is nucleic acid amplification by registered nurse practitioner mediated amplification (TMA) utilizing the Aptima Combo 2 Assay. Positive results repeated and confirmed. GC AND CHLAMYDIA, AMPLIFIED, [id number] 00:00:00* Test Item Value Reference Range Interpretation Comme nts GONORRHEA, NAAT (test code = 04687) POSITIVE, SEE BELOW CHLAMYDIA, NAAT (test code = 67586) POSITIVE, SEE BELOW Jordan Kaur AND CHLAMYDIA, AMPLIFIED, [id number] 00:00:00* Test Item Value Reference Range Interpretation Comme nts GONORRHEA, NAAT (test code = 76554) POSITIVE, SEE BELOW CHLAMYDIA, NAAT (test code = 91700) POSITIVE, SEE BELOW GC AND CHLAMYDIA, AMPLIFIED, [id number] 00:00:00* Test Item Value Reference Range Interpretation Comme nts GONORRHEA, NAAT (test code = 38911) POSITIVE, SEE BELOW CHLAMYDIA, NAAT (test code = 18429) POSITIVE, SEE BELOW GC AND CHLAMYDIA, AMPLIFIED, [id number] 00:00:00* Test Item Value Reference Range Interpretation Comme nts GONORRHEA, NAAT (test code = 84597) POSITIVE, SEE BELOW CHLAMYDIA, NAAT (test code = 68539) POSITIVE, SEE BELOW Joradn Kaur AND CHLAMYDIA, AMPLIFIED, [id number] 00:00:00* Test Item Value Reference Range Interpretation Comme nts GONORRHEA, NAAT (test code = 94556) POSITIVE, SEE BELOW CHLAMYDIA, NAAT (test code = 14918) POSITIVE, SEE BELOW HIV 1/2 4TH GEN, RFLX [id number] 05:00:55* Test Item Value Reference Range Interpretation Comme nts HIV 1/2 4TH GEN, RFLX CONF ( test code = 3514) NON-REACTIVE NON-REACTIVE HEPATITIS PANEL, [id number] 05:00:55* Test Item Value Reference Range Interpretation Comme nts HEPATITIS A IgM (test code = 48583) NON-REACTIVE NON-REACTIVE HEPATITIS B CORE IgM (test code = 4644) NON-REACTIVE NON-REACTIVE HEPATITIS B SURF AG (test code = 2739) NON-REACTIVE NON-REACTIVE HEPATITIS C ANTIBODY (test code = 4675) NON-REACTIVE NON-REACTIVE INTERPRETATION HEPATITIS A: (test code = 2552) (NOTE) Hepatitis A sero logy shows no evidence of acute hepatitis A. INTERPRETATION HEPATITIS B: (test code = 06797) (NOTE) Hepatitis B sero logy shows no evidence of acute hepatitis B andno indication of exposure to hepatitis B virus in the previous karla eight months. INTERPRETATION HEPATITIS C: (test code = 93468) (NOTE) Hepatitis C sero logy shows no evidence of exposure to hepatitisC virus at this time. It can take up to 12 months after exposure tothe hepatitis C virus for antibodies to become detectable in the blood in certain patients. UNLESS OTHERWISE INDICATED, ALL TESTING PERFORMED [facility] PATHOLOGY [employer] [address] [place] [address] ADJUNCT PROFESSOR OF LAW: JONNY FREY M.D. [place] NUMBER [id number] [facility] [place]. [id number] 04:58:29* Test Item Value Reference Range Interpretation Comme nts RPR RESULT (test code = 3501) NON-REACTIVE NON-REACTIVE RPR TITER (test code = 3500) NOT INDIC. TITER NOT INDIC. [id number] 00:00:00* Test Item Value Reference Range Interpretation Comme nts RPR RESULT (test code = 3501) NON-REACTIVE RPR TITER (test code = 3500) NOT INDIC. TITER Jordan TrotterACUTE HEPATITIS [id number] 00:00:00* Test Item Value Reference Range Interpretation Comme nts HEPATITIS A IgM (test code = 96471) NON-REACTIVE HEPATITIS B CORE IgM (test c ode = 4644) NON-REACTIVE HEPATITIS B SURF AG (test co de = 2739) NON-REACTIVE HEPATITIS C ANTIBODY (test c ode = 4675) NON-REACTIVE INTERPRETATION HEPATITIS A: (test code = 2552) (NOTE) INTERPRETATION HEPATITIS B: (test code = 22971) (NOTE) INTERPRETATION HEPATITIS C: (test code = 12907) (NOTE) Jordan TrotterHIV AB/AG COMBO RFLX [id number] 00:00:00* Test Item Value Reference Range Interpretation Comme nts HIV 1/2 4TH GEN, RFLX CONF ( test code = 3514) NON-REACTIVE Jordan [id number] 00:00:00* Test Item Value Reference Range Interpretation Comme nts RPR RESULT (test code = 3501) NON-REACTIVE RPR TITER (test code = 3500) NOT INDIC. TITER Jordan TrotterACUTE HEPATITIS [id number] 00:00:00* Test Item Value Reference Range Interpretation Comme nts HEPATITIS A IgM (test code = 75602) NON-REACTIVE HEPATITIS B CORE IgM (test c ode = 4644) NON-REACTIVE HEPATITIS B SURF AG (test co de = 2739) NON-REACTIVE HEPATITIS C ANTIBODY (test c ode = 4675) NON-REACTIVE INTERPRETATION HEPATITIS A: (test code = 2552) (NOTE) INTERPRETATION HEPATITIS B: (test code = 77578) (NOTE) INTERPRETATION HEPATITIS C: (test code = 57809) (NOTE) Jordan Hoff AustinHIV AB/AG COMBO RFLX [id number] 00:00:00* Test Item Value Reference Range Interpretation Comme nts HIV 1/2 4TH GEN, RFLX CONF ( test code = 3514) NON-REACTIVE Jordan TrotterHIV AB/AG COMBO RFLX [id number] 00:00:00* Test Item Value Reference Range Interpretation Comme nts HIV 1/2 4TH GEN, RFLX CONF ( test code = 3514) NON-REACTIVE [id number] 00:00:00* Test Item Value Reference Range Interpretation Comme nts RPR RESULT (test code = 3501) NON-REACTIVE RPR TITER (test code = 3500) NOT INDIC. TITER ACUTE HEPATITIS [id number] 00:00:00* Test Item Value Reference Range Interpretation Comme nts HEPATITIS A IgM (test code = 78993) NON-REACTIVE HEPATITIS B CORE IgM (test c ode = 4644) NON-REACTIVE HEPATITIS B SURF AG (test co de = 2739) NON-REACTIVE HEPATITIS C ANTIBODY (test c ode = 4675) NON-REACTIVE INTERPRETATION HEPATITIS A: (test code = 2552) (NOTE) INTERPRETATION HEPATITIS B: (test code = 10360) (NOTE) INTERPRETATION HEPATITIS C: (test code = 62117) (NOTE) HIV AB/AG COMBO RFLX [id number] 00:00:00* Test Item Value Reference Range Interpretation Comme nts HIV 1/2 4TH GEN, RFLX CONF ( test code = 3514) NON-REACTIVE [id number] 00:00:00* Test Item Value Reference Range Interpretation Comme nts RPR RESULT (test code = 3501) NON-REACTIVE RPR TITER (test code = 3500) NOT INDIC. TITER ACUTE HEPATITIS [id number] 00:00:00* Test Item Value Reference Range Interpretation Comme nts HEPATITIS A IgM (test code = 33575) NON-REACTIVE HEPATITIS B CORE IgM (test c ode = 4644) NON-REACTIVE HEPATITIS B SURF AG (test co de = 2739) NON-REACTIVE HEPATITIS C ANTIBODY (test c ode = 4675) NON-REACTIVE INTERPRETATION HEPATITIS A: (test code = 2552) (NOTE) INTERPRETATION HEPATITIS B: (test code = 91670) (NOTE) INTERPRETATION HEPATITIS C: (test code = 65458) (NOTE) HIV AB/AG COMBO RFLX [id number] 00:00:00* Test Item Value Reference Range Interpretation Comme nts HIV 1/2 4TH GEN, RFLX CONF ( test code = 3514) NON-REACTIVE [id number] 00:00:00* Test Item Value Reference Range Interpretation Comme nts RPR RESULT (test code = 3501) NON-REACTIVE RPR TITER (test code = 3500) NOT INDIC. TITER ACUTE HEPATITIS [id number] 00:00:00* Test Item Value Reference Range Interpretation Comme nts HEPATITIS A IgM (test code = 58111) NON-REACTIVE HEPATITIS B CORE IgM (test c ode = 4644) NON-REACTIVE HEPATITIS B SURF AG (test co de = 2739) NON-REACTIVE HEPATITIS C ANTIBODY (test c ode = 4675) NON-REACTIVE INTERPRETATION HEPATITIS A: (test code = 2552) (NOTE) INTERPRETATION HEPATITIS B: (test code = 95408) (NOTE) INTERPRETATION HEPATITIS C: (test code = 43119) (NOTE) RPR [ADDED]2021-02-18 00:00:00* Test Item Value [...] NOT INDIC. TITER Jordan TrotterVAGINAL PATHOGENS DNA [id number] 00:00:00* Test Item Value Reference Range Interpretation Comme nts SUZE SPECIES (test code = 81307) NEGATIVE G. VAGINALIS (test code = 72165) POSITIVE T. VAGINALIS (test code = 99572) NEGATIVE Jordan TrotterHIV 1/2 4TH GEN, RFLX CONF [ADDED]2021-02-17 00:00:00* Test Item Value Reference Range Interpretation Comme nts HIV 1/2 4TH GEN, RFLX CONF ( test code = 3514) NON-REACTIVE Jordan TrotterVAGINAL PATHOGENS DNA [id number] 00:00:00* Test Item Value Reference Range Interpretation Comme nts SUZE SPECIES (test code = 39792) NEGATIVE G. VAGINALIS (test code = 32540) POSITIVE T. VAGINALIS (test code = 65269) NEGATIVE VAGINAL PATHOGENS DNA [id number] 00:00:00* Test Item Value Reference Range Interpretation Comme nts SUZE SPECIES (test code = 91772) NEGATIVE G. VAGINALIS (test code = 57157) POSITIVE T. VAGINALIS (test code = 16822) NEGATIVE Jordan TrotterHIV 1/2 4TH GEN, RFLX CONF [ADDED]2021-02-17 00:00:00* Test Item Value Reference Range Interpretation Comme nts HIV 1/2 4TH GEN, RFLX CONF ( test code = 3514) NON-REACTIVE VAGINAL PATHOGENS DNA [id number] 00:00:00* Test Item Value Reference Range Interpretation Comme nts SUZE SPECIES (test code = 18542) NEGATIVE G. VAGINALIS (test code = 80578) POSITIVE T. VAGINALIS (test code = 22814) NEGATIVE HIV 1/2 4TH GEN, RFLX CONF [ADDED]2021-02-17 00:00:00* Test Item Value Reference Range Interpretation Comme nts HIV 1/2 4TH GEN, RFLX CONF ( test code = 3514) NON-REACTIVE VAGINAL PATHOGENS DNA [id number] 00:00:00* Test Item Value Reference Range Interpretation Comme nts SUZE SPECIES (test code = ) NEGATIVE G. VAGINALIS (test code = 06712) POSITIVE T. VAGINALIS (test code = 40743) NEGATIVE HIV 1/2 4TH GEN, RFLX CONF [...] Comme nts GONORRHEA, NAAT (test code = 36505) NEGATIVE CHLAMYDIA, NAAT (test code = 98433) NEGATIVE Jordan F AustinCT/NG, NAAT, URINE [ADDED]2021-02-16 00:00:00* Test Item Value Reference Range Interpretation Comme nts GONORRHEA, NAAT (test code = 33381) NEGATIVE CHLAMYDIA, NAAT (test code = 51470) NEGATIVE Jordan F AustinCT/NG, NAAT, URINE [ADDED]2021-02-16 00:00:00* Test Item Value Reference Range Interpretation Comme nts GONORRHEA, NAAT (test code = 59481) NEGATIVE CHLAMYDIA, NAAT (test code = 46836) NEGATIVE CT/NG, NAAT, URINE [ADDED]2021-02-16 00:00:00* Test Item Value Reference Range Interpretation Comme nts GONORRHEA, NAAT (test code = 93514) NEGATIVE CHLAMYDIA, NAAT (test code = 95213) NEGATIVE CT/NG, NAAT, URINE [ADDED]2021-02-16 00:00:00* Test Item Value Reference Range Interpretation Comme nts GONORRHEA, NAAT (test code = 30445) NEGATIVE CHLAMYDIA, NAAT (test code = 49177) NEGATIVE GC AND CHLAMYDIA, AMPLIFIED, [id number] 00:00:00* Test Item Value Reference Range Interpretation Comme nts GONORRHEA, NAAT (test code = 07540) TEST NOT PERFORMED CHLAMYDIA, NAAT (test code = 93073) TEST NOT PERFORMED Jordan F AustinGC AND CHLAMYDIA, AMPLIFIED, [id number] 00:00:00* Test Item Value Reference Range Interpretation Comme nts GONORRHEA, NAAT (test code = 73796) TEST NOT PERFORMED CHLAMYDIA, NAAT (test code = 55743) TEST NOT PERFORMED Jordan F AustinGC AND CHLAMYDIA, AMPLIFIED, [id number] 00:00:00* Test Item Value Reference Range Interpretation Comme nts GONORRHEA, NAAT (test code = 60848) TEST NOT PERFORMED CHLAMYDIA, NAAT (test code = 87354) TEST NOT PERFORMED GC AND CHLAMYDIA, AMPLIFIED, [id number] 00:00:00* Test Item Value Reference Range Interpretation Comme nts GONORRHEA, NAAT (test code = 12734) TEST NOT PERFORMED CHLAMYDIA, NAAT (test code = 81988) TEST NOT PERFORMED GC AND CHLAMYDIA, AMPLIFIED, [id number] 00:00:00* Test Item Value Reference Range Interpretation Comme nts GONORRHEA, NAAT (test code = 12005) TEST NOT PERFORMED CHLAMYDIA, NAAT (test code = 13065) TEST NOT PERFORMED CHLAMYDIA/N. GONORRHOEAE RNA, TMA (REFL)2021-01-22 00:00:00* Test Item Value Reference Range Interpretation Comme nts CHLAMYDIA TRACHOMATIS RNA, T MA, UROGENITAL (test code = 46012-8) NOT DETECTED NEISSERIA GONORRHOEAE RNA, T MA, UROGENITAL (test code = 14489-7) NOT DETECTED Jordan Hoff AustinCHLAMYDIA/N. GONORRHOEAE RNA, TMA (REFL)2021-01-22 00:00:00* Test Item Value Reference Range Interpretation Comme nts CHLAMYDIA TRACHOMATIS RNA, T MA, UROGENITAL (test code = 62177-1) NOT DETECTED NEISSERIA GONORRHOEAE RNA, T MA, UROGENITAL (test code = 43376-5) NOT DETECTED Jordan F AustinCHLAMYDIA/N. GONORRHOEAE RNA, TMA (REFL)2021-01-22 00:00:00* Test Item Value Reference Range Interpretation Comme nts CHLAMYDIA TRACHOMATIS RNA, T MA, UROGENITAL (test code = 80015-8) NOT DETECTED NEISSERIA GONORRHOEAE RNA, T MA, UROGENITAL (test code = 46662-9) NOT DETECTED COMMENT (test code = ) CHLAMYDIA/N. GONORRHOEAE RNA, TMA (REFL)2021-01-22 00:00:00* Test Item Value Reference Range Interpretation Comme nts CHLAMYDIA TRACHOMATIS RNA, T MA, UROGENITAL (test code = 30493-1) NOT DETECTED NEISSERIA GONORRHOEAE RNA, T MA, UROGENITAL (test code = 61207-6) NOT DETECTED COMMENT (test code = ) CHLAMYDIA/N. GONORRHOEAE RNA, TMA (REFL)2021-01-22 00:00:00* Test Item Value Reference Range Interpretation Comme nts CHLAMYDIA TRACHOMATIS RNA, T MA, UROGENITAL (test code = 55457-3) NOT DETECTED NEISSERIA GONORRHOEAE RNA, T MA, UROGENITAL (test code = 30515-5) NOT DETECTED COMMENT (test code = ) C. TRACHOMATIS/N. GONORRHOEAE, RECTAL/PHARYNGEAL [ADDED]2021-01-13 00:00:00* Test Item Value Reference Range Interpretation Comme nts SOURCE (test code = 87968) THROAT C. TRACHOMATIS (test code = 68256) NEGATIVE N. GONORRHOEAE (test code = 83274) NEGATIVE Jordan Hoff AustinC. TRACHOMATIS/N. GONORRHOEAE, RECTAL/PHARYNGEAL [ADDED] 2021-01-13 00:00:00* Test Item Value Reference Range Interpretation Comme nts SOURCE (test code = 06813) THROAT C. TRACHOMATIS (test code = 03949) NEGATIVE N. GONORRHOEAE (test code = 41851) NEGATIVE C. TRACHOMATIS/N. GONORRHOEAE, RECTAL/PHARYNGEAL [ADDED]2021-01-13 00:00:00* Test Item Value Reference Range Interpretation Comme nts SOURCE (test code = 74911) THROAT C. TRACHOMATIS (test code = 98439) NEGATIVE N. GONORRHOEAE (test code = 32267) NEGATIVE C. TRACHOMATIS/N. GONORRHOEAE, RECTAL/PHARYNGEAL [ADDED]2021-01-13 00:00:00* Test Item Value Reference Range Interpretation Comme nts SOURCE (test code = 45062) THROAT C. TRACHOMATIS (test code = 25814) NEGATIVE N. GONORRHOEAE (test code = 46847) NEGATIVE C. TRACHOMATIS/N. GONORRHOEAE, RECTAL/PHARYNGEAL [ADDED]2021-01-13 00:00:00* Test Item Value Reference Range Interpretation Comme nts SOURCE (test code = 86453) THROAT C. TRACHOMATIS (test code = 40593) NEGATIVE N. GONORRHOEAE (test code = 79766) NEGATIVE Jordan Hoff AustinCHLAMYDIA/N. GONORRHOEAE RNA, [id number] 00:00:00* Test Item Value Reference Range Interpretation Comme nts CHLAMYDIA TRACHOMATIS RNA, T MA, UROGENITAL (test code = 81344-8) DETECTED NEISSERIA GONORRHOEAE RNA, T MA, UROGENITAL (test code = 57892-7) NOT DETECTED Jordan Hoff AustinCARDIO IQ(R) VITAMIN D, 25-HYDROXY, LC/MS/[id number] 00:00:00 * Test Item Value Reference Range Interpretation Comme nts VITAMIN D, 25-OH, TOTAL (vinod t code = 79272-7) 21 ng/mL VITAMIN D, 25-OH, D3 (test c ode = 1989-1) 21 ng/mL VITAMIN D, 25-OH, D2 (test c ode = 2236-8) <4.0 ng/mL Jordan Hoff AustinCHLAMYDIA/N. GONORRHOEAE RNA, [id number] 00:00:00* Test Item Value Reference Range Interpretation Comme nts CHLAMYDIA TRACHOMATIS RNA, T MA, UROGENITAL (test code = 00409-8) DETECTED NEISSERIA GONORRHOEAE RNA, T MA, UROGENITAL (test code = 06580-9) NOT DETECTED Jordan Hoff AustinCARDIO IQ(R) VITAMIN D, 25-HYDROXY, LC/MS/[id number] 00:00:00 * Test Item Value Reference Range Interpretation Comme nts VITAMIN D, 25-OH, TOTAL (vinod t code = 19373-4) 21 ng/mL VITAMIN D, 25-OH, D3 (test c ode = 1989-) 21 ng/mL VITAMIN D, 25-OH, D2 (test c ode = 6-8) <4.0 ng/mL CHLAMYDIA/N. GONORRHOEAE RNA, [id number] 00:00:00* Test Item Value Reference Range Interpretation Comme nts CHLAMYDIA TRACHOMATIS RNA, T MA, UROGENITAL (test code = 80450-3) DETECTED NEISSERIA GONORRHOEAE RNA, T MA, UROGENITAL (test code = 02696-5) NOT DETECTED COMMENT (test code = ) CARDIO IQ(R) VITAMIN D, 25-HYDROXY, LC/MS/[id number] 00:00:00* Test Item Value Reference Range Interpretation Comme nts VITAMIN D, 25-OH, TOTAL (vinod t code = 04726-8) 21 ng/mL VITAMIN D, 25-OH, D3 (test c ode = 1989-05) 21 ng/mL VITAMIN D, 25-OH, D2 (test c ode = 2235-8) <4.0 ng/mL Jordan Hoff Arabella IQ(R) VITAMIN D, 25-HYDROXY, LC/MS/[id number] 00:00:00 * Test Item Value Reference Range Interpretation Comme nts VITAMIN D, 25-OH, TOTAL (vinod t code = 81842-5) 21 ng/mL VITAMIN D, 25-OH, D3 (test c ode = 1989-05) 21 ng/mL VITAMIN D, 25-OH, D2 (test c ode = 2235-8) <4.0 ng/mL CHLAMYDIA/N. GONORRHOEAE RNA, [id number] 00:00:00* Test Item Value Reference Range Interpretation Comme nts CHLAMYDIA TRACHOMATIS RNA, T MA, UROGENITAL (test code = 14198-0) DETECTED NEISSERIA GONORRHOEAE RNA, T MA, UROGENITAL (test code = 45950-5) NOT DETECTED COMMENT (test code = ) CARDIO IQ(R) VITAMIN D, 25-HYDROXY, LC/MS/[id number] 00:00:00* Test Item Value Reference Range Interpretation Comme nts VITAMIN D, 25-OH, TOTAL (vinod t code = 09557-6) 21 ng/mL VITAMIN D, 25-OH, D3 (test c ode = 1989-) 21 ng/mL VITAMIN D, 25-OH, D2 (test c ode = 2236-8) <4.0 ng/mL CHLAMYDIA/N. GONORRHOEAE RNA, [id number] 00:00:00* Test Item Value Reference Range Interpretation Comme nts CHLAMYDIA TRACHOMATIS RNA, T MA, UROGENITAL (test code = 21946-2) DETECTED NEISSERIA GONORRHOEAE RNA, T MA, UROGENITAL (test code = 52468-1) NOT DETECTED COMMENT (test code = ) [...] cells/uL ABSOLUTE BAND NEUTROPHILS (test code = 01553-2) DNR cells/uL ABSOLUTE METAMYELOCYTES (vinod t code = 81344-4) DNR cells/uL ABSOLUTE MYELOCYTES (test code = 87464-6) DNR cells/uL ABSOLUTE PROMYELOCYTES (test code = 21516-6) DNR cells/uL ABSOLUTE LYMPHOCYTES (test code = 731-0) 1476 cells/uL ABSOLUTE MONOCYTES (test cod e = 742-7) 390 cells/uL ABSOLUTE EOSINOPHILS (test code = 711-2) 132 cells/uL ABSOLUTE BASOPHILS (test cod e = 704-7) 19 cells/uL ABSOLUTE BLASTS (test code = 44783-4) DNR cells/uL ABSOLUTE NUCLEATED RBC (test code = 72438-9) DNR cells/uL NEUTROPHILS (test code = 770-8) 57.1 % BAND NEUTROPHILS (test code = 764-1) DNR % METAMYELOCYTES (test code = 740-1) DNR % MYELOCYTES (test code = 749-2) DNR % PROMYELOCYTES (test code = 783-1) DNR % LYMPHOCYTES (test code = 736-9) 31.4 % REACTIVE LYMPHOCYTES (test code = 35608-7) DNR % MONOCYTES (test code = 5905-5) 8.3 % EOSINOPHILS (test code = 713-8) 2.8 % BASOPHILS (test code = 706-2) 0.4 % BLASTS (test code = 709-6) DNR % NUCLEATED RBC (test code = 16092-9) DNR /100WBC COMMENT(S) (test code = 8251-1) DNR Jordan Luis Eduardo AustinLIPID PANEL (REFL)2020-10-06 00:00:00* Test Item Value Reference Range Interpretation Comme nts CHOLESTEROL, TOTAL (test cod e = 2093-3) 138 mg/dL HDL CHOLESTEROL (test code = 2085-9) 52 mg/dL TRIGLYCERIDES (test code = 2571-8) 78 mg/dL LDL-CHOLESTEROL (test code = 76641-6) 70 mg/dL(calc) CHOL/HDLC RATIO (test code = 9830-1) 2.7 (calc) NON HDL CHOLESTEROL (test co de = 60100-4) 86 mg/dL(calc) Jordan Luis Eduardo JvCOMPREHENSIVE METABOLIC [id number] 00:00:00* Test Item Value Reference Range Interpretation Comme nts GLUCOSE (test code = 2345-7) 112 mg/dL UREA NITROGEN (BUN) (test code = 3094-0) 14 mg/dL CREATININE (test code = 2160-0) 0.71 mg/dL eGFR NON-AFR. GUAMANIAN (test code = 64513-9) 123 mL/min/1.73m2 eGFR (test code = 68560-2) 143 mL/min/1.73m2 BUN/CREATININE RATIO (test code = 3097-3) NOT APPLICABLE (calc) SODIUM (test code = 2951-2) 141 mmol/L POTASSIUM (test code = 2823-3) 4.2 mmol/L CHLORIDE (test code = 2075-0) 108 mmol/L CARBON DIOXIDE (test code = 2027-9) 23 mmol/L CALCIUM (test code = 56255-0) 9.4 mg/dL PROTEIN, TOTAL (test code = 2885-2) 6.7 g/dL ALBUMIN (test code = 1751-7) 4.3 g/dL GLOBULIN (test code = 08430-6) 2.4 g/dL(calc) ALBUMIN/GLOBULIN RATIO (test code = 1759-0) 1.8 (calc) BILIRUBIN, TOTAL (test code = 1975-2) 0.3 mg/dL ALKALINE PHOSPHATASE (test code = 6768-6) 54 U/L AST (test code = 1920-8) 16 U/L ALT (test code = 1742-6) 17 U/L Jordan [id number] 00:00:00* Test Item Value Reference Range Interpretation Comme rylan TSH (test code = 3016-3) 0.93 mIU/L Jordan TrotterHEMOGLOBIN [id number] 00:00:00* Test Item Value Reference Range Interpretation Comme rylan HEMOGLOBIN A1c (test code = 4548-4) 4.8 %oftotalHgb Jordan TrotterRPR (MONITOR) W/REFL [id number] 00:00:00* Test Item Value Reference Range Interpretation Comme rylan RPR (MONITOR) W/REFL TITER ( test code = 21279-7) NON-REACTIVE Jordan TrotterHIV 1/2 ANTIGEN/ANTIBODY,FOURTH GENERATION [id number] 00:00:00* Test Item Value Reference Range Interpretation Comme rylan HIV AG/AB, 4TH GEN (test cod e = 65288-2) NON-REACTIVE Jordan TrotterCBC (INCLUDES DIFF/PLT)2020-10-06 00:00:00* Test [...] cells/uL ABSOLUTE BAND NEUTROPHILS (test code = 55537-9) DNR cells/uL ABSOLUTE METAMYELOCYTES (vinod t code = 12344-1) DNR cells/uL ABSOLUTE MYELOCYTES (test code = 85949-9) DNR cells/uL ABSOLUTE PROMYELOCYTES (test code = 13480-3) DNR cells/uL ABSOLUTE LYMPHOCYTES (test code = 731-0) 1476 cells/uL ABSOLUTE MONOCYTES (test cod e = 742-7) 390 cells/uL ABSOLUTE EOSINOPHILS (test code = 711-2) 132 cells/uL ABSOLUTE BASOPHILS (test cod e = 704-7) 19 cells/uL ABSOLUTE BLASTS (test code = 31653-1) DNR cells/uL ABSOLUTE NUCLEATED RBC (test code = 33535-6) DNR cells/uL NEUTROPHILS (test code = 770-8) 57.1 % BAND NEUTROPHILS (test code = 764-1) DNR % METAMYELOCYTES (test code = 740-1) DNR % MYELOCYTES (test code = 749-2) DNR % PROMYELOCYTES (test code = 783-1) DNR % LYMPHOCYTES (test code = 736-9) 31.4 % REACTIVE LYMPHOCYTES (test code = 14131-3) DNR % MONOCYTES (test code = 5905-5) 8.3 % EOSINOPHILS (test code = 713-8) 2.8 % BASOPHILS (test code = 706-2) 0.4 % BLASTS (test code = 709-6) DNR % NUCLEATED RBC (test code = 72773-7) DNR /100WBC COMMENT(S) (test code = 8251-1) DNR Jordan Hoff AustinLIPID PANEL (REFL)2020-10-06 00:00:00* Test Item Value Reference Range Interpretation Comme nts CHOLESTEROL, TOTAL (test cod e = 2093-3) 138 mg/dL HDL CHOLESTEROL (test code = 2085-9) 52 mg/dL TRIGLYCERIDES (test code = 2571-8) 78 mg/dL LDL-CHOLESTEROL (test code = 57070-3) 70 mg/dL(calc) CHOL/HDLC RATIO (test code = 9830-1) 2.7 (calc) NON HDL CHOLESTEROL (test co de = 73088-7) 86 mg/dL(calc) Jordan TrotterCOMPREHENSIVE METABOLIC [id number] 00:00:00* Test Item Value Reference Range Interpretation Comme nts GLUCOSE (test code = 2345-7) 112 mg/dL UREA NITROGEN (BUN) (test code = 3094-0) 14 mg/dL CREATININE (test code = 2160-0) 0.71 mg/dL eGFR NON-AFR. GUAMANIAN (test code = 49550-8) 123 mL/min/1.73m2 eGFR (test code = 73131-3) 143 mL/min/1.73m2 BUN/CREATININE RATIO (test code = 3097-3) NOT APPLICABLE (calc) SODIUM (test code = 2951-2) 141 mmol/L POTASSIUM (test code = 2823-3) 4.2 mmol/L CHLORIDE (test code = 2075-0) 108 mmol/L CARBON DIOXIDE (test code = 2027-9) 23 mmol/L CALCIUM (test code = 42962-3) 9.4 mg/dL PROTEIN, TOTAL (test code = 2885-2) 6.7 g/dL ALBUMIN (test code = 1751-7) 4.3 g/dL GLOBULIN (test code = 75744-1) 2.4 g/dL(calc) ALBUMIN/GLOBULIN RATIO (test code = 1759-0) 1.8 (calc) BILIRUBIN, TOTAL (test code = 1975-2) 0.3 mg/dL ALKALINE PHOSPHATASE (test code = 6768-6) 54 U/L AST (test code = 1920-8) 16 U/L ALT (test code = 1742-6) 17 U/L Jordan [id number] 00:00:00* Test Item Value Reference Range Interpretation Comme nts TSH (test code = 3016-3) 0.93 mIU/L Jordan TrotterHEMOGLOBIN [id number] 00:00:00* Test Item Value Reference Range Interpretation Comme rylan HEMOGLOBIN A1c (test code = 4548-4) 4.8 %oftotalHgb Jordan TrotterRPR (MONITOR) W/REFL [id number] 00:00:00* Test Item Value Reference Range Interpretation Comme rylan RPR (MONITOR) W/REFL TITER ( test code = 23988-7) NON-REACTIVE Jordan TrotterHIV 1/2 ANTIGEN/ANTIBODY,FOURTH GENERATION [id number] 00:00:00* Test Item Value Reference Range Interpretation Comme rylan HIV AG/AB, 4TH GEN (test cod e = 14127-1) NON-REACTIVE CBC (INCLUDES DIFF/PLT)2020-10-06 00:00:00* Test Item [...] cells/uL ABSOLUTE BAND NEUTROPHILS (test code = 57358-3) DNR cells/uL ABSOLUTE METAMYELOCYTES (vinod t code = 63831-3) DNR cells/uL ABSOLUTE MYELOCYTES (test code = 85540-9) DNR cells/uL ABSOLUTE PROMYELOCYTES (test code = 65341-3) DNR cells/uL ABSOLUTE LYMPHOCYTES (test code = 731-0) 1476 cells/uL ABSOLUTE MONOCYTES (test cod e = 742-7) 390 cells/uL ABSOLUTE EOSINOPHILS (test code = 711-2) 132 cells/uL ABSOLUTE BASOPHILS (test cod e = 704-7) 19 cells/uL ABSOLUTE BLASTS (test code = 33617-3) DNR cells/uL ABSOLUTE NUCLEATED RBC (test code = 99321-5) DNR cells/uL NEUTROPHILS (test code = 770-8) 57.1 % BAND NEUTROPHILS (test code = 764-1) DNR % METAMYELOCYTES (test code = 740-1) DNR % MYELOCYTES (test code = 749-2) DNR % PROMYELOCYTES (test code = 783-1) DNR % LYMPHOCYTES (test code = 736-9) 31.4 % REACTIVE LYMPHOCYTES (test code = 58810-1) DNR % MONOCYTES (test code = 5905-5) 8.3 % EOSINOPHILS (test code = 713-8) 2.8 % BASOPHILS (test code = 706-2) 0.4 % BLASTS (test code = 709-6) DNR % NUCLEATED RBC (test code = 01733-5) DNR /100WBC COMMENT(S) (test code = 8251-1) DNR LIPID PANEL (REFL)2020-10-06 00:00:00* Test Item Value Reference Range Interpretation Comme nts CHOLESTEROL, TOTAL (test cod e = 2093-3) 138 mg/dL HDL CHOLESTEROL (test code = 2085-9) 52 mg/dL TRIGLYCERIDES (test code = 2571-8) 78 mg/dL LDL-CHOLESTEROL (test code = 54058-0) 70 mg/dL(calc) CHOL/HDLC RATIO (test code = 9830-1) 2.7 (calc) NON HDL CHOLESTEROL (test co de = 37060-9) 86 mg/dL(calc) COMPREHENSIVE METABOLIC [id number] 00:00:00* Test Item Value Reference Range Interpretation Comme nts GLUCOSE (test code = 2345-7) 112 mg/dL UREA NITROGEN (BUN) (test code = 3094-0) 14 mg/dL CREATININE (test code = 2160-0) 0.71 mg/dL eGFR NON-AFR. GUAMANIAN (test code = 22935-0) 123 mL/min/1.73m2 eGFR (test code = 29168-6) 143 mL/min/1.73m2 BUN/CREATININE RATIO (test code = 3097-3) NOT APPLICABLE (calc) SODIUM (test code = 2951-2) 141 mmol/L POTASSIUM (test code = 2823-3) 4.2 mmol/L CHLORIDE (test code = 2075-0) 108 mmol/L CARBON DIOXIDE (test code = 2027-9) 23 mmol/L CALCIUM (test code = 87804-0) 9.4 mg/dL PROTEIN, TOTAL (test code = 2885-2) 6.7 g/dL ALBUMIN (test code = 1751-7) 4.3 g/dL GLOBULIN (test code = 59419-2) 2.4 g/dL(calc) ALBUMIN/GLOBULIN RATIO (test code = 1759-0) 1.8 (calc) BILIRUBIN, TOTAL (test code = 1974-) 0.3 mg/dL ALKALINE PHOSPHATASE (test code = 6768-6) 54 U/L AST (test code = 1920-8) 16 U/L ALT (test code = 1742-6) 17 U/L [id number] 00:00:00* Test Item Value Reference Range Interpretation Comme nts TSH (test code = 3016-3) 0.93 mIU/L HEMOGLOBIN [id number] 00:00:00* Test Item Value Reference Range Interpretation Comme nts HEMOGLOBIN A1c (test code = 4548-4) 4.8 %oftotalHgb RPR (MONITOR) W/REFL [id number] 00:00:00* Test Item Value Reference Range Interpretation Comme nts RPR (MONITOR) W/REFL TITER ( test code = 84203-5) NON-REACTIVE HIV 1/2 ANTIGEN/ANTIBODY,FOURTH GENERATION [id number] 00:00:00* Test Item Value Reference Range Interpretation Comme nts HIV AG/AB, 4TH GEN (test cod e = 10435-4) NON-REACTIVE CBC (INCLUDES DIFF/PLT)2020-10-06 00:00:00* Test Item [...] cells/uL ABSOLUTE BAND NEUTROPHILS (test code = 39429-4) DNR cells/uL ABSOLUTE METAMYELOCYTES (vinod t code = 75581-3) DNR cells/uL ABSOLUTE MYELOCYTES (test code = 94502-6) DNR cells/uL ABSOLUTE PROMYELOCYTES (test code = 85467-4) DNR cells/uL ABSOLUTE LYMPHOCYTES (test code = 731-0) 1476 cells/uL ABSOLUTE MONOCYTES (test cod e = 742-7) 390 cells/uL ABSOLUTE EOSINOPHILS (test code = 711-2) 132 cells/uL ABSOLUTE BASOPHILS (test cod e = 704-7) 19 cells/uL ABSOLUTE BLASTS (test code = 90962-5) DNR cells/uL ABSOLUTE NUCLEATED RBC (test code = 31618-1) DNR cells/uL NEUTROPHILS (test code = 770-8) 57.1 % BAND NEUTROPHILS (test code = 764-1) DNR % METAMYELOCYTES (test code = 740-1) DNR % MYELOCYTES (test code = 749-2) DNR % PROMYELOCYTES (test code = 783-1) DNR % LYMPHOCYTES (test code = 736-9) 31.4 % REACTIVE LYMPHOCYTES (test code = 22678-8) DNR % MONOCYTES (test code = 5905-5) 8.3 % EOSINOPHILS (test code = 713-8) 2.8 % BASOPHILS (test code = 706-2) 0.4 % BLASTS (test code = 709-6) DNR % NUCLEATED RBC (test code = 68060-1) DNR /100WBC COMMENT(S) (test code = 8251-1) DNR LIPID PANEL (REFL)2020-10-06 00:00:00* Test Item Value Reference Range Interpretation Comme nts CHOLESTEROL, TOTAL (test cod e = 2093-3) 138 mg/dL HDL CHOLESTEROL (test code = 2085-9) 52 mg/dL TRIGLYCERIDES (test code = 2571-8) 78 mg/dL LDL-CHOLESTEROL (test code = 74729-7) 70 mg/dL(calc) CHOL/HDLC RATIO (test code = 9830-1) 2.7 (calc) NON HDL CHOLESTEROL (test co de = 75231-6) 86 mg/dL(calc) COMPREHENSIVE METABOLIC [id number] 00:00:00* Test Item Value Reference Range Interpretation Comme nts GLUCOSE (test code = 2345-7) 112 mg/dL UREA NITROGEN (BUN) (test code = 3094-0) 14 mg/dL CREATININE (test code = 2160-0) 0.71 mg/dL eGFR NON-AFR. GUAMANIAN (test code = 41915-5) 123 mL/min/1.73m2 eGFR (test code = 86370-3) 143 mL/min/1.73m2 BUN/CREATININE RATIO (test code = 3097-3) NOT APPLICABLE (calc) SODIUM (test code = 2951-2) 141 mmol/L POTASSIUM (test code = 2823-3) 4.2 mmol/L CHLORIDE (test code = 2075-0) 108 mmol/L CARBON DIOXIDE (test code = 2027-9) 23 mmol/L CALCIUM (test code = 44463-8) 9.4 mg/dL PROTEIN, TOTAL (test code = 2885-2) 6.7 g/dL ALBUMIN (test code = 1751-7) 4.3 g/dL GLOBULIN (test code = 83929-5) 2.4 g/dL(calc) ALBUMIN/GLOBULIN RATIO (test code = 1759-0) 1.8 (calc) BILIRUBIN, TOTAL (test code = 1975-2) 0.3 mg/dL ALKALINE PHOSPHATASE (test code = 6768-6) 54 U/L AST (test code = 1920-8) 16 U/L ALT (test code = 1742-6) 17 U/L [id number] 00:00:00* Test Item Value Reference Range Interpretation Comme nts TSH (test code = 3016-3) 0.93 mIU/L HEMOGLOBIN [id number] 00:00:00* Test Item Value Reference Range Interpretation Comme nts HEMOGLOBIN A1c (test code = 4548-4) 4.8 %oftotalHgb HIV 1/2 ANTIGEN/ANTIBODY,FOURTH GENERATION [id number] 00:00:00* Test Item Value Reference Range Interpretation Comme nts HIV AG/AB, 4TH GEN (test cod e = 39245-9) NON-REACTIVE Jordan TrotterRPR (MONITOR) W/REFL [id number] 00:00:00* Test Item Value Reference Range Interpretation Comme nts RPR (MONITOR) W/REFL TITER ( test code = 87886-0) NON-REACTIVE HIV 1/2 ANTIGEN/ANTIBODY,FOURTH GENERATION [id number] 00:00:00* Test Item Value Reference Range Interpretation Comme nts HIV AG/AB, 4TH GEN (test cod e = 90764-6) NON-REACTIVE CBC (INCLUDES DIFF/PLT)2020-10-06 00:00:00* Test Item [...] cells/uL ABSOLUTE BAND NEUTROPHILS (test code = 71005-7) DNR cells/uL ABSOLUTE METAMYELOCYTES (vinod t code = 94937-6) DNR cells/uL ABSOLUTE MYELOCYTES (test code = 91795-7) DNR cells/uL ABSOLUTE PROMYELOCYTES (test code = 69552-7) DNR cells/uL ABSOLUTE LYMPHOCYTES (test code = 731-0) 1476 cells/uL ABSOLUTE MONOCYTES (test cod e = 742-7) 390 cells/uL ABSOLUTE EOSINOPHILS (test code = 711-2) 132 cells/uL ABSOLUTE BASOPHILS (test cod e = 704-7) 19 cells/uL ABSOLUTE BLASTS (test code = 70600-9) DNR cells/uL ABSOLUTE NUCLEATED RBC (test code = 01837-7) DNR cells/uL NEUTROPHILS (test code = 770-8) 57.1 % BAND NEUTROPHILS (test code = 764-1) DNR % METAMYELOCYTES (test code = 740-1) DNR % MYELOCYTES (test code = 749-2) DNR % PROMYELOCYTES (test code = 783-1) DNR % LYMPHOCYTES (test code = 736-9) 31.4 % REACTIVE LYMPHOCYTES (test code = 24420-4) DNR % MONOCYTES (test code = 5905-5) 8.3 % EOSINOPHILS (test code = 713-8) 2.8 % BASOPHILS (test code = 706-2) 0.4 % BLASTS (test code = 709-6) DNR % NUCLEATED RBC (test code = 92694-4) DNR /100WBC COMMENT(S) (test code = 8251-1) DNR LIPID PANEL (REFL)2020-10-06 00:00:00* Test Item Value Reference Range Interpretation Comme nts CHOLESTEROL, TOTAL (test cod e = 2093-3) 138 mg/dL HDL CHOLESTEROL (test code = 2085-9) 52 mg/dL TRIGLYCERIDES (test code = 2571-8) 78 mg/dL LDL-CHOLESTEROL (test code = 68383-0) 70 mg/dL(calc) CHOL/HDLC RATIO (test code = 9830-1) 2.7 (calc) NON HDL CHOLESTEROL (test co de = 48528-6) 86 mg/dL(calc) COMPREHENSIVE METABOLIC [id number] 00:00:00* Test Item Value Reference Range Interpretation Comme nts GLUCOSE (test code = 2345-7) 112 mg/dL UREA NITROGEN (BUN) (test code = 3094-0) 14 mg/dL CREATININE (test code = 2160-0) 0.71 mg/dL eGFR NON-AFR. GUAMANIAN (test code = 13017-0) 123 mL/min/1.73m2 eGFR (test code = 76029-9) 143 mL/min/1.73m2 BUN/CREATININE RATIO (test code = 3097-3) NOT APPLICABLE (calc) SODIUM (test code = 2951-2) 141 mmol/L POTASSIUM (test code = 2823-3) 4.2 mmol/L CHLORIDE (test code = 2075-0) 108 mmol/L CARBON DIOXIDE (test code = 8-9) 23 mmol/L CALCIUM (test code = 30375-5) 9.4 mg/dL PROTEIN, TOTAL (test code = 2885-2) 6.7 g/dL ALBUMIN (test code = 1751-7) 4.3 g/dL GLOBULIN (test code = 74474-4) 2.4 g/dL(calc) ALBUMIN/GLOBULIN RATIO (test code = 1759-0) 1.8 (calc) BILIRUBIN, TOTAL (test code = 1975-2) 0.3 mg/dL ALKALINE PHOSPHATASE (test code = 6768-6) 54 U/L AST (test code = 1920-8) 16 U/L ALT (test code = 1742-6) 17 U/L [id number] 00:00:00* Test Item Value Reference Range Interpretation Comme nts TSH (test code = 3016-3) 0.93 mIU/L HEMOGLOBIN [id number] 00:00:00* Test Item Value Reference Range Interpretation Comme nts HEMOGLOBIN A1c (test code = 4548-4) 4.8 %oftotalHgb RPR (MONITOR) W/REFL [id number] 00:00:00* Test Item Value Reference Range Interpretation Comme nts RPR (MONITOR) W/REFL TITER ( test code = 92535-8) NON-REACTIVE BV/VAGINITIS PANEL DNA [id number] 00:00:00* Test Item Value Reference Range Interpretation Comme nts TRICHOMONAS: (test code = 6568-0) NOT DETECTED GARDNERELLA: (test code = 6410-5) DETECTED SUZE: (test code = 02121-3) DETECTED Jordan F AustinBV/VAGINITIS PANEL DNA [id number] 00:00:00* Test Item Value Reference Range Interpretation Comme nts TRICHOMONAS: (test code = 6568-0) NOT DETECTED GARDNERELLA: (test code = 6410-5) DETECTED SUZE: (test code = 47242-3) DETECTED Jordan F AustinBV/VAGINITIS PANEL DNA [id number] 00:00:00* Test Item Value Reference Range Interpretation Comme nts TRICHOMONAS: (test code = 6568-0) NOT DETECTED GARDNERELLA: (test code = 6410-5) DETECTED SUZE: (test code = 87567-3) DETECTED BV/VAGINITIS PANEL DNA [id number] 00:00:00* Test Item Value Reference Range Interpretation Comme nts TRICHOMONAS: (test code = 6568-0) NOT DETECTED GARDNERELLA: (test code = 6410-5) DETECTED SUZE: (test code = 96321-1) DETECTED BV/VAGINITIS PANEL DNA [id number] 00:00:00* Test Item Value Reference Range Interpretation Comme nts TRICHOMONAS: (test code = 6568-0) NOT DETECTED GARDNERELLA: (test code = 6410-5) DETECTED SUZE: (test code = 25803-2) DETECTED BV/VAGINITIS PANEL DNA [id number] 00:00:00* Test Item Value Reference Range Interpretation Comme nts TRICHOMONAS: (test code = 6568-0) NOT DETECTED GARDNERELLA: (test code = 6410-5) DETECTED SUZE: (test code = 37057-2) NOT DETECTED Jordan Hoff AustinBV/VAGINITIS PANEL DNA [id number] 00:00:00* Test Item Value Reference Range Interpretation Comme nts TRICHOMONAS: (test code = 6568-0) NOT DETECTED GARDNERELLA: (test code = 6410-5) DETECTED SUZE: (test code = 41302-5) NOT DETECTED Jordan F AustinBV/VAGINITIS PANEL DNA [id number] 00:00:00* Test Item Value Reference Range Interpretation Comme nts TRICHOMONAS: (test code = 6568-0) NOT DETECTED GARDNERELLA: (test code = 6410-5) DETECTED SUZE: (test code = 60024-2) NOT DETECTED BV/VAGINITIS PANEL DNA [id number] 00:00:00* Test Item Value Reference Range Interpretation Comme nts TRICHOMONAS: (test code = 6568-0) NOT DETECTED GARDNERELLA: (test code = 6410-5) DETECTED SUZE: (test code = 08141-8) NOT DETECTED BV/VAGINITIS PANEL DNA [id number] 00:00:00* Test Item Value Reference Range Interpretation Comme nts TRICHOMONAS: (test code = 6568-0) NOT DETECTED GARDNERELLA: (test code = 6410-5) DETECTED SUZE: (test code = 12909-2) NOT DETECTED RPR (MONITOR) W/REFL [id number] 00:00:00* Test Item Value Reference Range Interpretation Comme nts RPR (MONITOR) W/REFL TITER ( test code = 99027-9) NON-REACTIVE Jordan TrotterCHLAMYDIA TRACHOMATIS RNA, [id number] 00:00:00* Test Item Value Reference Range Interpretation Comme nts CHLAMYDIA TRACHOMATIS RNA, T MA, UROGENITAL (test code = 09842-3) NOT DETECTED Jordan Hoff AustinHIV 1/2 ANTIGEN/ANTIBODY,FOURTH GENERATION [id number] 00:00:00* Test Item Value Reference Range Interpretation Comme nts HIV AG/AB, 4TH GEN (test cod e = 50203-3) NON-REACTIVE Jordan TrotterNEISSERIA GONORRHOEAE RNA, [id number] 00:00:00* Test Item Value Reference Range Interpretation Comme nts NEISSERIA GONORRHOEAE RNA, T MA, UROGENITAL (test code = 48697-2) NOT DETECTED Jordan Hoff AustinHEPATITIS PANEL, [id number] 00:00:00* Test Item Value Reference Range Interpretation Comme nts HEPATITIS A AB, TOTAL (test code = 61686-1) REACTIVE HEPATITIS B SURFACE ANTIBODY QL (test code = 69444-9) NON-REACTIVE HEPATITIS B SURFACE ANTIGEN (test code = 5196-1) NON-REACTIVE CONFIRMATION (test code = 7905-3) DNR HEPATITIS B CORE AB TOTAL (t est code = 27167-8) NON-REACTIVE HEPATITIS C ANTIBODY (test c ode = 04538-0) NON-REACTIVE SIGNAL TO CUT-OFF (test code = 51447-0) 0.02 Jordan F AustinRPR (MONITOR) W/REFL [id number] 00:00:00* Test Item Value Reference Range Interpretation Comme nts RPR (MONITOR) W/REFL TITER ( test code = 30088-9) NON-REACTIVE Jordan Hoff AustinHIV 1/2 ANTIGEN/ANTIBODY,FOURTH GENERATION [id number] 00:00:00* Test Item Value Reference Range Interpretation Comme nts HIV AG/AB, 4TH GEN (test cod e = 61366-5) NON-REACTIVE Jordan F AustinCHLAMYDIA TRACHOMATIS RNA, [id number] 00:00:00* Test Item Value Reference Range Interpretation Comme nts CHLAMYDIA TRACHOMATIS RNA, T MA, UROGENITAL (test code = 34588-5) NOT DETECTED COMMENT (test code = ) HEPATITIS PANEL, [id number] 00:00:00* Test Item Value Reference Range Interpretation Comme nts HEPATITIS A AB, TOTAL (test code = 44280-6) REACTIVE HEPATITIS B SURFACE ANTIBODY QL (test code = 51107-7) NON-REACTIVE HEPATITIS B SURFACE ANTIGEN (test code = 5196-1) NON-REACTIVE CONFIRMATION (test code = 7905-3) DNR HEPATITIS B CORE AB TOTAL (t est code = 68177-4) NON-REACTIVE HEPATITIS C ANTIBODY (test c ode = 64784-3) NON-REACTIVE SIGNAL TO CUT-OFF (test code = 69507-0) 0.02 NEISSERIA GONORRHOEAE RNA, [id number] 00:00:00* Test Item Value Reference Range Interpretation Comme nts NEISSERIA GONORRHOEAE RNA, T MA, UROGENITAL (test code = 82827-0) NOT DETECTED COMMENT (test code = ) RPR (MONITOR) W/REFL [id number] 00:00:00* Test Item Value Reference Range Interpretation Comme nts RPR (MONITOR) W/REFL TITER ( test code = 91198-4) NON-REACTIVE CHLAMYDIA TRACHOMATIS RNA, [id number] 00:00:00* Test Item Value Reference Range Interpretation Comme nts CHLAMYDIA TRACHOMATIS RNA, T MA, UROGENITAL (test code = 52872-5) NOT DETECTED Jordan F AustinCHLAMYDIA TRACHOMATIS RNA, [id number] 00:00:00* Test Item Value Reference Range Interpretation Comme nts CHLAMYDIA TRACHOMATIS RNA, T MA, UROGENITAL (test code = 01392-6) NOT DETECTED COMMENT (test code = ) HIV 1/2 ANTIGEN/ANTIBODY,FOURTH GENERATION [id number] 00:00:00* Test Item Value Reference Range Interpretation Comme nts HIV AG/AB, 4TH GEN (test cod e = 96698-8) NON-REACTIVE NEISSERIA GONORRHOEAE RNA, [id number] 00:00:00* Test Item Value Reference Range Interpretation Comme nts NEISSERIA GONORRHOEAE RNA, T MA, UROGENITAL (test code = 56438-6) NOT DETECTED COMMENT (test code = ) HEPATITIS PANEL, [id number] 00:00:00* Test Item Value Reference Range Interpretation Comme nts HEPATITIS A AB, TOTAL (test code = 28121-0) REACTIVE HEPATITIS B SURFACE ANTIBODY QL (test code = 07719-3) NON-REACTIVE HEPATITIS B SURFACE ANTIGEN (test code = 5196-1) NON-REACTIVE CONFIRMATION (test code = 7905-3) DNR HEPATITIS B CORE AB TOTAL (t est code = 13293-0) NON-REACTIVE HEPATITIS C ANTIBODY (test c ode = 55202-8) NON-REACTIVE SIGNAL TO CUT-OFF (test code = 07234-3) 0.02 HEPATITIS PANEL, [id number] 00:00:00* Test Item Value Reference Range Interpretation Comme nts HEPATITIS A AB, TOTAL (test code = 51273-4) REACTIVE HEPATITIS B SURFACE ANTIBODY QL (test code = 12658-7) NON-REACTIVE HEPATITIS B SURFACE ANTIGEN (test code = 5196-1) NON-REACTIVE CONFIRMATION (test code = 7905-3) DNR HEPATITIS B CORE AB TOTAL (t est code = 09439-6) NON-REACTIVE HEPATITIS C ANTIBODY (test c ode = 67725-0) NON-REACTIVE SIGNAL TO CUT-OFF (test code = 77928-1) 0.02 Jordan Hoff AustinRPR (MONITOR) W/REFL [id number] 00:00:00* Test Item Value Reference Range Interpretation Comme nts RPR (MONITOR) W/REFL TITER ( test code = 19084-7) NON-REACTIVE CHLAMYDIA TRACHOMATIS RNA, [id number] 00:00:00* Test Item Value Reference Range Interpretation Comme nts CHLAMYDIA TRACHOMATIS RNA, T MA, UROGENITAL (test code = 70254-2) NOT DETECTED COMMENT (test code = ) HIV 1/2 ANTIGEN/ANTIBODY,FOURTH GENERATION [id number] 00:00:00* Test Item Value Reference Range Interpretation Comme nts HIV AG/AB, 4TH GEN (test cod e = 41678-1) NON-REACTIVE NEISSERIA GONORRHOEAE RNA, [id number] 00:00:00* Test Item Value Reference Range Interpretation Comme nts NEISSERIA GONORRHOEAE RNA, T MA, UROGENITAL (test code = 40425-6) NOT DETECTED COMMENT (test code = ) HEPATITIS PANEL, [id number] 00:00:00* Test Item Value Reference Range Interpretation Comme nts HEPATITIS A AB, TOTAL (test code = 79712-9) REACTIVE HEPATITIS B SURFACE ANTIBODY QL (test code = 07766-1) NON-REACTIVE HEPATITIS B SURFACE ANTIGEN (test code = 5196-1) NON-REACTIVE CONFIRMATION (test code = 7905-3) DNR HEPATITIS B CORE AB TOTAL (t est code = 16682-7) NON-REACTIVE HEPATITIS C ANTIBODY (test c ode = 41264-3) NON-REACTIVE SIGNAL TO CUT-OFF (test code = 99685-3) 0.02 RPR (MONITOR) W/REFL [id number] 00:00:00* Test Item Value Reference Range Interpretation Comme nts RPR (MONITOR) W/REFL TITER ( test code = 96393-8) NON-REACTIVE HIV 1/2 ANTIGEN/ANTIBODY,FOURTH GENERATION [id number] 00:00:00* Test Item Value Reference Range Interpretation Comme nts HIV AG/AB, 4TH GEN (test cod e = 81743-2) NON-REACTIVE NEISSERIA GONORRHOEAE RNA, [id number] 00:00:00* Test Item Value Reference Range Interpretation Comme nts NEISSERIA GONORRHOEAE RNA, T MA, UROGENITAL (test code = 44284-6) NOT DETECTED Jordan F AustinGC AND CHLAMYDIA, AMPLIFIED, [id number] 00:00:00* Test Item Value Reference Range Interpretation Comme nts GONORRHEA, TMA (test code = 45583) NEGATIVE CHLAMYDIA, TMA (test code = 84170) NEGATIVE Jordan F AustinGC AND CHLAMYDIA, AMPLIFIED, [id number] 00:00:00* Test Item Value Reference Range Interpretation Comme nts GONORRHEA, TMA (test code = 16516) NEGATIVE CHLAMYDIA, TMA (test code = 07439) NEGATIVE Jordan F AustinGC AND CHLAMYDIA, AMPLIFIED, [id number] 00:00:00* Test Item Value Reference Range Interpretation Comme nts GONORRHEA, TMA (test code = 66618) NEGATIVE CHLAMYDIA, TMA (test code = 97469) NEGATIVE GC AND CHLAMYDIA, AMPLIFIED, [id number] 00:00:00* Test Item Value Reference Range Interpretation Comme nts GONORRHEA, TMA (test code = 44486) NEGATIVE CHLAMYDIA, TMA (test code = 50754) NEGATIVE GC AND CHLAMYDIA, AMPLIFIED, [id number] 00:00:00* Test Item Value Reference Range Interpretation Comme nts GONORRHEA, TMA (test code = 89489) NEGATIVE CHLAMYDIA, TMA (test code = 57340) NEGATIVE CT/NG, TMA, SIMPLESWAB [ADDED]2020-02-13 00:00:00* Test Item Value Reference Range Interpretation Comme nts CHLAMYDIA, TMA (test code = 06602) TEST NOT PERFORMED GONORRHEA, TMA (test code = 58333) TEST NOT PERFORMED Jordan F AustinCT/NG, TMA, SIMPLESWAB [ADDED]2020-02-13 00:00:00* Test Item Value Reference Range Interpretation Comme nts CHLAMYDIA, TMA (test code = 52150) TEST NOT PERFORMED GONORRHEA, TMA (test code = 37420) TEST NOT PERFORMED Jordan F AustinCT/NG, TMA, SIMPLESWAB [ADDED]2020-02-13 00:00:00* Test Item Value Reference Range Interpretation Comme nts CHLAMYDIA, TMA (test code = 25552) TEST NOT PERFORMED GONORRHEA, TMA (test code = 42529) TEST NOT PERFORMED CT/NG, TMA, SIMPLESWAB [ADDED]2020-02-13 00:00:00* Test Item Value Reference Range Interpretation Comme nts CHLAMYDIA, TMA (test code = 27282) TEST NOT PERFORMED GONORRHEA, TMA (test code = 80982) TEST NOT PERFORMED CT/NG, TMA, SIMPLESWAB [ADDED]2020-02-13 00:00:00* Test Item Value Reference Range Interpretation Comme nts CHLAMYDIA, TMA (test code = 21556) TEST NOT PERFORMED GONORRHEA, TMA (test code = 88460) TEST NOT PERFORMED GC AND CHLAMYDIA AMPLIFIED, [id number] 00:00:00* Test Item Value Reference Range Interpretation Comme nts CHLAMYDIA, TMA (test code = 72163) TEST NOT PERFORMED GONORRHEA, TMA (test code = 68563) TEST NOT PERFORMED Jordan F AustinGC AND CHLAMYDIA, AMPLIFIED, [id number] 00:00:00* Test Item Value Reference Range Interpretation Comme nts GONORRHEA, TMA (test code = 18935) TEST NOT PERFORMED CHLAMYDIA, TMA (test code = 81369) TEST NOT PERFORMED Jordan F AustinGC AND CHLAMYDIA AMPLIFIED, [id number] 00:00:00* Test Item Value Reference Range Interpretation Comme nts CHLAMYDIA, TMA (test code = 99526) TEST NOT PERFORMED GONORRHEA, TMA (test code = 94230) TEST NOT PERFORMED Jordan F AustinGC AND CHLAMYDIA, AMPLIFIED, [id number] 00:00:00* Test Item Value Reference Range Interpretation Comme nts GONORRHEA, TMA (test code = 60927) TEST NOT PERFORMED CHLAMYDIA, TMA (test code = 20062) TEST NOT PERFORMED GC AND CHLAMYDIA AMPLIFIED, [id number] 00:00:00* Test Item Value Reference Range Interpretation Comme nts CHLAMYDIA, TMA (test code = 32700) TEST NOT PERFORMED GONORRHEA, TMA (test code = 60949) TEST NOT PERFORMED GC AND CHLAMYDIA, AMPLIFIED, [id number] 00:00:00* Test Item Value Reference Range Interpretation Comme nts GONORRHEA, TMA (test code = 03358) TEST NOT PERFORMED CHLAMYDIA, TMA (test code = 42471) TEST NOT PERFORMED GC AND CHLAMYDIA AMPLIFIED, [id number] 00:00:00* Test Item Value Reference Range Interpretation Comme nts CHLAMYDIA, TMA (test code = 87097) TEST NOT PERFORMED GONORRHEA, TMA (test code = 17390) TEST NOT PERFORMED GC AND CHLAMYDIA, AMPLIFIED, [id number] 00:00:00* Test Item Value Reference Range Interpretation Comme nts GONORRHEA, TMA (test code = 41707) TEST NOT PERFORMED CHLAMYDIA, TMA (test code = 67977) TEST NOT PERFORMED GC AND CHLAMYDIA AMPLIFIED, [id number] 00:00:00* Test Item Value Reference Range Interpretation Comme nts CHLAMYDIA, TMA (test code = 34680) TEST NOT PERFORMED GONORRHEA, TMA (test code = 74983) TEST NOT PERFORMED GC AND CHLAMYDIA, AMPLIFIED, [id number] 00:00:00* Test Item Value Reference Range Interpretation Comme nts GONORRHEA, TMA (test code = 87549) TEST NOT PERFORMED CHLAMYDIA, TMA (test code = 96259) TEST NOT PERFORMED Jordan F AustinVAGINAL PATHOGENS DNA [id number] 00:00:00* Test Item Value Reference Range Interpretation Comme nts SUZE SPECIES (test code = 78225) NEGATIVE G. VAGINALIS (test code = 85052) NEGATIVE T. VAGINALIS (test code = 03779) NEGATIVE Jordan F AustinVAGINAL PATHOGENS DNA [id number] 00:00:00* Test Item Value Reference Range Interpretation Comme nts SUZE SPECIES (test code = 39502) NEGATIVE G. VAGINALIS (test code = 19439) NEGATIVE T. VAGINALIS (test code = 93043) NEGATIVE Jordan F AustinVAGINAL PATHOGENS DNA [id number] 00:00:00* Test Item Value Reference Range Interpretation Comme nts SUZE SPECIES (test code = 34467) NEGATIVE G. VAGINALIS (test code = 65675) NEGATIVE T. VAGINALIS (test code = 79314) NEGATIVE VAGINAL PATHOGENS DNA [id number] 00:00:00* Test Item Value Reference Range Interpretation Comme nts SUZE SPECIES (test code = 47279) NEGATIVE G. VAGINALIS (test code = 48226) NEGATIVE T. VAGINALIS (test code = 81770) NEGATIVE VAGINAL PATHOGENS DNA [id number] 00:00:00* Test Item Value Reference Range Interpretation Comme nts SUZE SPECIES (test code = 51621) NEGATIVE G. VAGINALIS (test code = 40678) NEGATIVE T. VAGINALIS (test code = 31113) NEGATIVE SARS-CoV-2 (COVID-19) by RT-PCR (HIGH RISK)2019-12-21 00:00:00* Test Item Value Reference Range Interpretation Comme nts SARS-CoV-2 INTERPRETATION (test code = 10861) NEGATIVE SOURCE (test code = 95814) NASOPHARYNGEAL Jordan F [id number] (COVID-19) by RT-PCR (HIGH RISK)2019-12-21 00:00:00* Test Item Value Reference Range Interpretation Comme nts SARS-CoV-2 INTERPRETATION (test code = 25209) NEGATIVE SOURCE (test code = 74436) NASOPHARYNGEAL Jordan F [id number] (COVID-19) by RT-PCR (HIGH RISK)2019-12-21 00:00:00* Test Item Value Reference Range Interpretation Comme nts SARS-CoV-2 INTERPRETATION (test code = 04489) NEGATIVE SOURCE (test code = 44466) NASOPHARYNGEAL SARS-CoV-2 (COVID-19) by RT-PCR (HIGH RISK)2019-12-21 00:00:00* Test Item Value Reference Range Interpretation Comme nts SARS-CoV-2 INTERPRETATION (test code = 16820) NEGATIVE SOURCE (test code = 86312) NASOPHARYNGEAL SARS-CoV-2 (COVID-19) by RT-PCR (HIGH RISK)2019-12-21 00:00:00* Test Item Value Reference Range Interpretation Comme nts SARS-CoV-2 INTERPRETATION (test code = 65419) NEGATIVE SOURCE (test code = 90589) NASOPHARYNGEAL COMPREHENSIVE METABOLIC [id number] 00:00:00* Test Item Value Reference Range Interpretation Comme nts GLUCOSE (test code = 2345-7) 113 mg/dL UREA NITROGEN (BUN) (test code = 3094-0) 12 mg/dL CREATININE (test code = 2160-0) 0.62 mg/dL eGFR NON-AFR. GUAMANIAN (test code = 44003-5) 131 mL/min/1.73m2 eGFR (test code = 72264-3) 152 mL/min/1.73m2 BUN/CREATININE RATIO (test code = 3097-3) NOT APPLICABLE (calc) SODIUM (test code = 2951-2) 138 mmol/L POTASSIUM (test code = 2823-3) 3.9 mmol/L CHLORIDE (test code = 2075-0) 105 mmol/L CARBON DIOXIDE (test code = 8-9) 26 mmol/L CALCIUM (test code = 02539-5) 9.5 mg/dL PROTEIN, TOTAL (test code = 2885-2) 7.1 g/dL ALBUMIN (test code = 1751-7) 4.7 g/dL GLOBULIN (test code = 69860-1) 2.4 g/dL(calc) ALBUMIN/GLOBULIN RATIO (test code = 1759-0) 2.0 (calc) BILIRUBIN, TOTAL (test code = 1975-2) 1.1 mg/dL ALKALINE PHOSPHATASE (test code = 6768-6) 53 U/L AST (test code = 1920-8) 13 U/L ALT (test code = 1742-6) 10 U/L Jordan F AustinLIPID [id number] 00:00:00* Test Item Value Reference Range Interpretation Comme nts CHOLESTEROL, TOTAL (test cod e = 2093-3) 141 mg/dL HDL CHOLESTEROL (test code = 2085-9) 54 mg/dL TRIGLYCERIDES (test code = 2571-8) 62 mg/dL LDL-CHOLESTEROL (test code = 42214-4) 73 mg/dL(calc) CHOL/HDLC RATIO (test code = 9830-1) 2.6 (calc) NON HDL CHOLESTEROL (test co de = 78183-3) 87 mg/dL(calc) Jordan TrotterHEMOGLOBIN [id number] 00:00:00* Test Item Value Reference Range Interpretation [...] cells/uL ABSOLUTE BAND NEUTROPHILS (test code = 48754-5) DNR cells/uL ABSOLUTE METAMYELOCYTES (vinod t code = 60873-9) DNR cells/uL ABSOLUTE MYELOCYTES (test code = 44212-3) DNR cells/uL ABSOLUTE PROMYELOCYTES (test code = 38477-9) DNR cells/uL ABSOLUTE LYMPHOCYTES (test code = 731-0) 2268 cells/uL ABSOLUTE MONOCYTES (test cod e = 742-7) 622 cells/uL ABSOLUTE EOSINOPHILS (test code = 711-2) 160 cells/uL ABSOLUTE BASOPHILS (test cod e = 704-7) 50 cells/uL ABSOLUTE BLASTS (test code = 47693-2) DNR cells/uL ABSOLUTE NUCLEATED RBC (test code = 18719-2) DNR cells/uL NEUTROPHILS (test code = 770-8) 63.1 % BAND NEUTROPHILS (test code = 764-1) DNR % METAMYELOCYTES (test code = 740-1) DNR % MYELOCYTES (test code = 749-2) DNR % PROMYELOCYTES (test code = 783-1) DNR % LYMPHOCYTES (test code = 736-9) 27.0 % REACTIVE LYMPHOCYTES (test code = 27484-8) DNR % MONOCYTES (test code = 5905-5) 7.4 % EOSINOPHILS (test code = 713-8) 1.9 % BASOPHILS (test code = 706-2) 0.6 % BLASTS (test code = 709-6) DNR % NUCLEATED RBC (test code = 33485-3) DNR /100WBC COMMENT(S) (test code = 8251-1) DNR Jordan F JvCOMPREHENSIVE METABOLIC [id number] 00:00:00* Test Item Value Reference Range Interpretation Comme nts GLUCOSE (test code = 2345-7) 113 mg/dL UREA NITROGEN (BUN) (test code = 3094-0) 12 mg/dL CREATININE (test code = 2160-0) 0.62 mg/dL eGFR NON-AFR. GUAMANIAN (test code = 99895-7) 131 mL/min/1.73m2 eGFR (test code = 82064-4) 152 mL/min/1.73m2 BUN/CREATININE RATIO (test code = 3097-3) NOT APPLICABLE (calc) SODIUM (test code = 2951-2) 138 mmol/L POTASSIUM (test code = 2823-3) 3.9 mmol/L CHLORIDE (test code = 2075-0) 105 mmol/L CARBON DIOXIDE (test code = 2027-9) 26 mmol/L CALCIUM (test code = 34276-8) 9.5 mg/dL PROTEIN, TOTAL (test code = 2885-2) 7.1 g/dL ALBUMIN (test code = 1751-7) 4.7 g/dL GLOBULIN (test code = 53016-5) 2.4 g/dL(calc) ALBUMIN/GLOBULIN RATIO (test code = 1759-0) 2.0 (calc) BILIRUBIN, TOTAL (test code = 1975-2) 1.1 mg/dL ALKALINE PHOSPHATASE (test code = 6768-6) 53 U/L AST (test code = 1920-8) 13 U/L ALT (test code = 1742-6) 10 U/L Jordan TrotterLIPID [id number] 00:00:00* Test Item Value Reference Range Interpretation Comme [facility] CHOLESTEROL, TOTAL (test cod e = 2093-3) 141 mg/dL HDL CHOLESTEROL (test code = 2085-9) 54 mg/dL TRIGLYCERIDES (test code = 2571-8) 62 mg/dL LDL-CHOLESTEROL (test code = 07502-1) 73 mg/dL(calc) CHOL/HDLC RATIO (test code = 9830-1) 2.6 (calc) NON HDL CHOLESTEROL (test co de = 78653-9) 87 mg/dL(calc) Jordan TrotterHEMOGLOBIN [id number] 00:00:00* Test Item Value Reference Range Interpretation Comme [facility] HEMOGLOBIN A1c (test code = 4548-4) [...] cells/uL ABSOLUTE BAND NEUTROPHILS (test code = 38141-7) DNR cells/uL ABSOLUTE METAMYELOCYTES (vinod t code = 29577-0) DNR cells/uL ABSOLUTE MYELOCYTES (test code = 83131-9) DNR cells/uL ABSOLUTE PROMYELOCYTES (test code = 68970-3) DNR cells/uL ABSOLUTE LYMPHOCYTES (test code = 731-0) 2268 cells/uL ABSOLUTE MONOCYTES (test cod e = 742-7) 622 cells/uL ABSOLUTE EOSINOPHILS (test code = 711-2) 160 cells/uL ABSOLUTE BASOPHILS (test cod e = 704-7) 50 cells/uL ABSOLUTE BLASTS (test code = 56113-6) DNR cells/uL ABSOLUTE NUCLEATED RBC (test code = 14767-3) DNR cells/uL NEUTROPHILS (test code = 770-8) 63.1 % BAND NEUTROPHILS (test code = 764-1) DNR % METAMYELOCYTES (test code = 740-1) DNR % MYELOCYTES (test code = 749-2) DNR % PROMYELOCYTES (test code = 783-1) DNR % LYMPHOCYTES (test code = 736-9) 27.0 % REACTIVE LYMPHOCYTES (test code = 93906-6) DNR % MONOCYTES (test code = 5905-5) 7.4 % EOSINOPHILS (test code = 713-8) 1.9 % BASOPHILS (test code = 706-2) 0.6 % BLASTS (test code = 709-6) DNR % NUCLEATED RBC (test code = 39738-6) DNR /100WBC COMMENT(S) (test code = 8251-1) DNR HEMOGLOBIN [id number] 00:00:00* Test Item Value Reference Range Interpretation Comme nts HEMOGLOBIN A1c (test code = 4548-4) 5.0 %oftotalHgb Jordan F AustinCOMPREHENSIVE METABOLIC [id number] 00:00:00* Test Item Value Reference Range Interpretation Comme nts GLUCOSE (test code = 2345-7) 113 mg/dL UREA NITROGEN (BUN) (test code = 3094-0) 12 mg/dL CREATININE (test code = 2160-0) 0.62 mg/dL eGFR NON-AFR. GUAMANIAN (test code = 87283-2) 131 mL/min/1.73m2 eGFR (test code = 39787-9) 152 mL/min/1.73m2 BUN/CREATININE RATIO (test code = 3097-3) NOT APPLICABLE (calc) SODIUM (test code = 2951-2) 138 mmol/L POTASSIUM (test code = 2823-3) 3.9 mmol/L CHLORIDE (test code = 5-0) 105 mmol/L CARBON DIOXIDE (test code = 2027-9) 26 mmol/L CALCIUM (test code = 02180-7) 9.5 mg/dL PROTEIN, TOTAL (test code = 2885-2) 7.1 g/dL ALBUMIN (test code = 1751-7) 4.7 g/dL GLOBULIN (test code = 44657-9) 2.4 g/dL(calc) ALBUMIN/GLOBULIN RATIO (test code = 1759-0) 2.0 (calc) BILIRUBIN, TOTAL (test code = 1974-2) 1.1 mg/dL ALKALINE PHOSPHATASE (test code = 6768-6) 53 U/L AST (test code = 1920-8) 13 U/L ALT (test code = 1742-6) 10 U/L LIPID [id number] 00:00:00* Test Item Value Reference Range Interpretation Comme nts CHOLESTEROL, TOTAL (test cod e = 2092-3) 141 mg/dL HDL CHOLESTEROL (test code = 2084-9) 54 mg/dL TRIGLYCERIDES (test code = 2571-8) 62 mg/dL LDL-CHOLESTEROL (test code = 91631-1) 73 mg/dL(calc) CHOL/HDLC RATIO (test code = 9830-1) 2.6 (calc) NON HDL CHOLESTEROL (test co de = 30047-3) 87 mg/dL(calc) HEMOGLOBIN [id number] 00:00:00* Test Item Value Reference Range Interpretation [...] cells/uL ABSOLUTE BAND NEUTROPHILS (test code = 26299-1) DNR cells/uL ABSOLUTE METAMYELOCYTES (vinod t code = 94459-5) DNR cells/uL ABSOLUTE MYELOCYTES (test code = 02616-4) DNR cells/uL ABSOLUTE PROMYELOCYTES (test code = 25256-7) DNR cells/uL ABSOLUTE LYMPHOCYTES (test code = 731-0) 2268 cells/uL ABSOLUTE MONOCYTES (test cod e = 742-7) 622 cells/uL ABSOLUTE EOSINOPHILS (test code = 711-2) 160 cells/uL ABSOLUTE BASOPHILS (test cod e = 704-7) 50 cells/uL ABSOLUTE BLASTS (test code = 76621-3) DNR cells/uL ABSOLUTE NUCLEATED RBC (test code = 16523-1) DNR cells/uL NEUTROPHILS (test code = 770-8) 63.1 % BAND NEUTROPHILS (test code = 764-1) DNR % METAMYELOCYTES (test code = 740-1) DNR % MYELOCYTES (test code = 749-2) DNR % PROMYELOCYTES (test code = 783-1) DNR % LYMPHOCYTES (test code = 736-9) 27.0 % REACTIVE LYMPHOCYTES (test code = 04125-3) DNR % MONOCYTES (test code = 5905-5) 7.4 % EOSINOPHILS (test code = 713-8) 1.9 % BASOPHILS (test code = 706-2) 0.6 % BLASTS (test code = 709-6) DNR % NUCLEATED RBC (test code = 59724-9) DNR /100WBC COMMENT(S) (test code = 8251-1) DNR COMPREHENSIVE METABOLIC [id number] 00:00:00* Test Item Value Reference Range Interpretation Comme nts GLUCOSE (test code = 2345-7) 113 mg/dL UREA NITROGEN (BUN) (test code = 3094-0) 12 mg/dL CREATININE (test code = 2160-0) 0.62 mg/dL eGFR NON-AFR. GUAMANIAN (test code = 44023-2) 131 mL/min/1.73m2 eGFR (test code = 89192-6) 152 mL/min/1.73m2 BUN/CREATININE RATIO (test code = 3097-3) NOT APPLICABLE (calc) SODIUM (test code = 2951-2) 138 mmol/L POTASSIUM (test code = 2823-3) 3.9 mmol/L CHLORIDE (test code = 2075-0) 105 mmol/L CARBON DIOXIDE (test code = 2027-9) 26 mmol/L CALCIUM (test code = 78401-3) 9.5 mg/dL PROTEIN, TOTAL (test code = 2885-2) 7.1 g/dL ALBUMIN (test code = 1751-7) 4.7 g/dL GLOBULIN (test code = 46056-8) 2.4 g/dL(calc) ALBUMIN/GLOBULIN RATIO (test code = 1759-0) 2.0 (calc) BILIRUBIN, TOTAL (test code = 1975-2) 1.1 mg/dL ALKALINE PHOSPHATASE (test code = 6768-6) 53 U/L AST (test code = 1920-8) 13 U/L ALT (test code = 1742-6) 10 U/L LIPID [id number] 00:00:00* Test Item Value Reference Range Interpretation Comme nts CHOLESTEROL, TOTAL (test cod e = 2093-3) 141 mg/dL HDL CHOLESTEROL (test code = 5-9) 54 mg/dL TRIGLYCERIDES (test code = 2571-8) 62 mg/dL LDL-CHOLESTEROL (test code = 30885-7) 73 mg/dL(calc) CHOL/HDLC RATIO (test code = 9830-1) 2.6 (calc) NON HDL CHOLESTEROL (test co de = 13103-4) 87 mg/dL(calc) HEMOGLOBIN [id number] 00:00:00* Test Item Value Reference Range Interpretation [...] cells/uL ABSOLUTE BAND NEUTROPHILS (test code = 94546-2) DNR cells/uL ABSOLUTE METAMYELOCYTES (vinod t code = 38576-0) DNR cells/uL ABSOLUTE MYELOCYTES (test code = 82496-6) DNR cells/uL ABSOLUTE PROMYELOCYTES (test code = 35117-5) DNR cells/uL ABSOLUTE LYMPHOCYTES (test code = 731-0) 2268 cells/uL ABSOLUTE MONOCYTES (test cod e = 742-7) 622 cells/uL ABSOLUTE EOSINOPHILS (test code = 711-2) 160 cells/uL ABSOLUTE BASOPHILS (test cod e = 704-7) 50 cells/uL ABSOLUTE BLASTS (test code = 93381-5) DNR cells/uL ABSOLUTE NUCLEATED RBC (test code = 80605-6) DNR cells/uL NEUTROPHILS (test code = 770-8) 63.1 % BAND NEUTROPHILS (test code = 764-1) DNR % METAMYELOCYTES (test code = 740-1) DNR % MYELOCYTES (test code = 749-2) DNR % PROMYELOCYTES (test code = 783-1) DNR % LYMPHOCYTES (test code = 736-9) 27.0 % REACTIVE LYMPHOCYTES (test code = 63901-0) DNR % MONOCYTES (test code = 5905-5) 7.4 % EOSINOPHILS (test code = 713-8) 1.9 % BASOPHILS (test code = 706-2) 0.6 % BLASTS (test code = 709-6) DNR % NUCLEATED RBC (test code = 36859-4) DNR /100WBC COMMENT(S) (test code = 8251-1) DNR COMPREHENSIVE METABOLIC [id number] 00:00:00* Test Item Value Reference Range Interpretation Comme nts GLUCOSE (test code = 2345-7) 113 mg/dL UREA NITROGEN (BUN) (test code = 3094-0) 12 mg/dL CREATININE (test code = 2160-0) 0.62 mg/dL eGFR NON-AFR. GUAMANIAN (test code = 24576-6) 131 mL/min/1.73m2 eGFR (test code = 93842-6) 152 mL/min/1.73m2 BUN/CREATININE RATIO (test code = 3097-3) NOT APPLICABLE (calc) SODIUM (test code = 2951-2) 138 mmol/L POTASSIUM (test code = 2823-3) 3.9 mmol/L CHLORIDE (test code = 2075-0) 105 mmol/L CARBON DIOXIDE (test code = 8-9) 26 mmol/L CALCIUM (test code = 79180-0) 9.5 mg/dL PROTEIN, TOTAL (test code = 2885-2) 7.1 g/dL ALBUMIN (test code = 1751-7) 4.7 g/dL GLOBULIN (test code = 04263-5) 2.4 g/dL(calc) ALBUMIN/GLOBULIN RATIO (test code = 1759-0) 2.0 (calc) BILIRUBIN, TOTAL (test code = 1975-2) 1.1 mg/dL ALKALINE PHOSPHATASE (test code = 6768-6) 53 U/L AST (test code = 1920-8) 13 U/L ALT (test code = 1742-6) 10 U/L LIPID [id number] 00:00:00* Test Item Value Reference Range Interpretation Comme nts CHOLESTEROL, TOTAL (test cod e = 2093-3) 141 mg/dL HDL CHOLESTEROL (test code = 2085-9) 54 mg/dL TRIGLYCERIDES (test code = 2571-8) 62 mg/dL LDL-CHOLESTEROL (test code = 70793-7) 73 mg/dL(calc) CHOL/HDLC RATIO (test code = 9830-1) 2.6 (calc) NON HDL CHOLESTEROL (test co de = 05808-8) 87 mg/dL(calc) CBC (INCLUDES DIFF/PLT)2019-11-06 00:00:00* Test [...] cells/uL ABSOLUTE BAND NEUTROPHILS (test code = 55847-8) DNR cells/uL ABSOLUTE METAMYELOCYTES (vinod t code = 26519-8) DNR cells/uL ABSOLUTE MYELOCYTES (test code = 73322-2) DNR cells/uL ABSOLUTE PROMYELOCYTES (test code = 92643-1) DNR cells/uL ABSOLUTE LYMPHOCYTES (test code = 731-0) 2268 cells/uL ABSOLUTE MONOCYTES (test cod e = 742-7) 622 cells/uL ABSOLUTE EOSINOPHILS (test code = 711-2) 160 cells/uL ABSOLUTE BASOPHILS (test cod e = 704-7) 50 cells/uL ABSOLUTE BLASTS (test code = 76368-8) DNR cells/uL ABSOLUTE NUCLEATED RBC (test code = 56171-1) DNR cells/uL NEUTROPHILS (test code = 770-8) 63.1 % BAND NEUTROPHILS (test code = 764-1) DNR % METAMYELOCYTES (test code = 740-1) DNR % MYELOCYTES (test code = 749-2) DNR % PROMYELOCYTES (test code = 783-1) DNR % LYMPHOCYTES (test code = 736-9) 27.0 % REACTIVE LYMPHOCYTES (test code = 29312-1) DNR % MONOCYTES (test code = 5905-5) 7.4 % EOSINOPHILS (test code = 713-8) 1.9 % BASOPHILS (test code = 706-2) 0.6 % BLASTS (test code = 709-6) DNR % NUCLEATED RBC (test code = 53573-6) DNR /100WBC COMMENT(S) (test code = 8251-1) DNR Jordan Hoff AustinHIV 1/2 ANTIGEN/ANTIBODY,FOURTH GENERATION [id number] 00:00:00* Test Item Value Reference Range Interpretation Comme nts HIV AG/AB, 4TH GEN (test cod e = 61835-4) TNP Jordan Hoff AustinCHLAMYDIA TRACHOMATIS RNA, [id number] 00:00:00* Test Item Value Reference Range Interpretation Comme nts CHLAMYDIA TRACHOMATIS RNA, T MA, UROGENITAL (test code = 40700-6) NOT DETECTED Jordan TrotterNEISSERIA GONORRHOEAE RNA, [id number] 00:00:00* Test Item Value Reference Range Interpretation Comme nts NEISSERIA GONORRHOEAE RNA, T MA, UROGENITAL (test code = 51765-7) NOT DETECTED Jordan Hoff AustinHEPATITIS PANEL, ACUTE W/REFLEX TO [id number] 00:00:00* Test Item Value Reference Range Interpretation Comme nts HEPATITIS A IGM (test code = 20525-1) NON-REACTIVE HEPATITIS B SURFACE ANTIGEN (test code = 5196-1) NON-REACTIVE CONFIRMATION (test code = 7905-3) DNR HEPATITIS B CORE ANTIBODY (I GM) (test code = 01838-0) NON-REACTIVE HEPATITIS C ANTIBODY (test c ode = 77643-5) NON-REACTIVE SIGNAL TO CUT-OFF (test code = 09727-0) 0.03 Jordan Hoff AustinRPR (MONITOR) W/REFL [id number] 00:00:00* Test Item Value Reference Range Interpretation Comme nts RPR (MONITOR) W/REFL TITER ( test code = 73427-5) TNP Jordan Hoff AustinHIV 1/2 ANTIGEN/ANTIBODY,FOURTH GENERATION [id number] 00:00:00* Test Item Value Reference Range Interpretation Comme nts HIV AG/AB, 4TH GEN (test cod e = 29754-6) TNP Jordan Hoff AustinCHLAMYDIA TRACHOMATIS RNA, [id number] 00:00:00* Test Item Value Reference Range Interpretation Comme nts CHLAMYDIA TRACHOMATIS RNA, T MA, UROGENITAL (test code = 55202-0) NOT DETECTED Jordan Hoff AustinHIV 1/2 ANTIGEN/ANTIBODY,FOURTH GENERATION [id number] 00:00:00* Test Item Value Reference Range Interpretation Comme nts HIV AG/AB, 4TH GEN (test cod e = 75545-4) TNP NEISSERIA GONORRHOEAE RNA, [id number] 00:00:00* Test Item Value Reference Range Interpretation Comme nts NEISSERIA GONORRHOEAE RNA, T MA, UROGENITAL (test code = 56955-7) NOT DETECTED COMMENT (test code = ) HEPATITIS PANEL, ACUTE W/REFLEX TO [id number] 00:00:00* Test Item Value Reference Range Interpretation Comme nts HEPATITIS A IGM (test code = 22768-6) NON-REACTIVE HEPATITIS B SURFACE ANTIGEN (test code = 5196-1) NON-REACTIVE CONFIRMATION (test code = 7905-3) DNR HEPATITIS B CORE ANTIBODY (I GM) (test code = 86981-1) NON-REACTIVE HEPATITIS C ANTIBODY (test c ode = 84529-2) NON-REACTIVE SIGNAL TO CUT-OFF (test code = 15272-2) 0.03 RPR (MONITOR) W/REFL [id number] 00:00:00* Test Item Value Reference Range Interpretation Comme nts RPR (MONITOR) W/REFL TITER ( test code = 79728-8) TNP CHLAMYDIA TRACHOMATIS RNA, [id number] 00:00:00* Test Item Value Reference Range Interpretation Comme nts CHLAMYDIA TRACHOMATIS RNA, T MA, UROGENITAL (test code = 70954-6) NOT DETECTED COMMENT (test code = ) HIV 1/2 ANTIGEN/ANTIBODY,FOURTH GENERATION [id number] 00:00:00* Test Item Value Reference Range Interpretation Comme nts HIV AG/AB, 4TH GEN (test cod e = 21944-6) TNP NEISSERIA GONORRHOEAE RNA, [id number] 00:00:00* Test Item Value Reference Range Interpretation Comme nts NEISSERIA GONORRHOEAE RNA, T MA, UROGENITAL (test code = 99181-5) NOT DETECTED COMMENT (test code = ) HEPATITIS PANEL, ACUTE W/REFLEX TO [id number] 00:00:00* Test Item Value Reference Range Interpretation Comme nts HEPATITIS A IGM (test code = 07932-0) NON-REACTIVE HEPATITIS B SURFACE ANTIGEN (test code = 5196-1) NON-REACTIVE CONFIRMATION (test code = 7905-3) DNR HEPATITIS B CORE ANTIBODY (I GM) (test code = 49569-8) NON-REACTIVE HEPATITIS C ANTIBODY (test c ode = 98559-3) NON-REACTIVE SIGNAL TO CUT-OFF (test code = 25303-4) 0.03 RPR (MONITOR) W/REFL [id number] 00:00:00* Test Item Value Reference Range Interpretation Comme nts RPR (MONITOR) W/REFL TITER ( test code = 12298-7) TNP CHLAMYDIA TRACHOMATIS RNA, [id number] 00:00:00* Test Item Value Reference Range Interpretation Comme nts CHLAMYDIA TRACHOMATIS RNA, T MA, UROGENITAL (test code = 81697-5) NOT DETECTED COMMENT (test code = ) HIV 1/2 ANTIGEN/ANTIBODY,FOURTH GENERATION [id number] 00:00:00* Test Item Value Reference Range Interpretation Comme nts HIV AG/AB, 4TH GEN (test cod e = 60154-8) TNP NEISSERIA GONORRHOEAE RNA, [id number] 00:00:00* Test Item Value Reference Range Interpretation Comme nts NEISSERIA GONORRHOEAE RNA, T MA, UROGENITAL (test code = 05671-4) NOT DETECTED COMMENT (test code = ) HEPATITIS PANEL, ACUTE W/REFLEX TO [id number] 00:00:00* Test Item Value Reference Range Interpretation Comme nts HEPATITIS A IGM (test code = 57564-8) NON-REACTIVE HEPATITIS B SURFACE ANTIGEN (test code = 5196-1) NON-REACTIVE CONFIRMATION (test code = 7905-3) DNR HEPATITIS B CORE ANTIBODY (I GM) (test code = 91751-5) NON-REACTIVE HEPATITIS C ANTIBODY (test c ode = 80817-0) NON-REACTIVE SIGNAL TO CUT-OFF (test code = 74694-4) 0.03 RPR (MONITOR) W/REFL [id number] 00:00:00* Test Item Value Reference Range Interpretation Comme nts RPR (MONITOR) W/REFL TITER ( test code = 78647-5) TNP CHLAMYDIA TRACHOMATIS RNA, [id number] 00:00:00* Test Item Value Reference Range Interpretation Comme nts CHLAMYDIA TRACHOMATIS RNA, T MA, UROGENITAL (test code = 19671-9) NOT DETECTED COMMENT (test code = ) NEISSERIA GONORRHOEAE RNA, [id number] 00:00:00* Test Item Value Reference Range Interpretation Comme nts NEISSERIA GONORRHOEAE RNA, T MA, UROGENITAL (test code = 08312-4) NOT DETECTED Jordan TrotterHEPATITIS PANEL, ACUTE W/REFLEX TO [id number] 00:00:00* Test Item Value Reference Range Interpretation Comme nts HEPATITIS A IGM (test code = 68597-3) NON-REACTIVE HEPATITIS B SURFACE ANTIGEN (test code = 5196-1) NON-REACTIVE CONFIRMATION (test code = 7905-3) DNR HEPATITIS B CORE ANTIBODY (I GM) (test code = 58465-3) NON-REACTIVE HEPATITIS C ANTIBODY (test c ode = 27254-8) NON-REACTIVE SIGNAL TO CUT-OFF (test code = 12384-7) 0.03 Jordan Hoff AustinRPR (MONITOR) W/REFL [id number] 00:00:00* Test Item Value Reference Range Interpretation Comme nts RPR (MONITOR) W/REFL TITER ( test code = 39681-0) TNP Jordan Hoff [id number] 00:00:00* Test Item Value Reference Range Interpretation Comme nts RPR RESULT (test code = 3501) NON-REACTIVE RPR TITER (test code = 3500) NOT INDIC. TITER Jordan Hoff AustinVAGINAL PATHOGENS DNA [id number] 00:00:00* Test Item Value Reference Range Interpretation Comme nts SUZE SPECIES (test code = 39344) POSITIVE G. VAGINALIS (test code = 78936) NEGATIVE T. VAGINALIS (test code = 94357) NEGATIVE Jordan TrotterACUTE HEPATITIS [id number] 00:00:00* Test Item Value Reference Range Interpretation Comme nts HEPATITIS A IgM (test code = 90417) NON-REACTIVE HEPATITIS B CORE IgM (test c ode = 4644) NON-REACTIVE HEPATITIS B SURF AG (test co de = 2739) NON-REACTIVE HEPATITIS C ANTIBODY (test c ode = 4675) NON-REACTIVE HCV INDEX (test code = 41193) 0.08 INTERPRETATION HEPATITIS A: (test code = 2552) (NOTE) INTERPRETATION HEPATITIS B: (test code = 39698) (NOTE) INTERPRETATION HEPATITIS C: (test code = 29128) (NOTE) Jordan TrotterHIV AB/AG COMBO RFLX [id number] 00:00:00* Test Item Value Reference Range Interpretation Comme nts HIV 1/2 4TH GEN, RFLX CONF ( test code = 3514) NON-REACTIVE Jordan Hoff [id number] 00:00:00* Test Item Value Reference Range Interpretation Comme nts RPR RESULT (test code = 3501) NON-REACTIVE RPR TITER (test code = 3500) NOT INDIC. TITER Jordan Hoff AustinVAGINAL PATHOGENS DNA [id number] 00:00:00* Test Item Value Reference Range Interpretation Comme nts SUZE SPECIES (test code = ) POSITIVE G. VAGINALIS (test code = 41168) NEGATIVE T. VAGINALIS (test code = 15788) NEGATIVE Jordan Hoff AustinVAGINAL PATHOGENS DNA [id number] 00:00:00* Test Item Value Reference Range Interpretation Comme nts SUZE SPECIES (test code = ) POSITIVE G. VAGINALIS (test code = 52325) NEGATIVE T. VAGINALIS (test code = 30157) NEGATIVE ACUTE HEPATITIS [id number] 00:00:00* Test Item Value Reference Range Interpretation Comme nts HEPATITIS A IgM (test code = 73546) NON-REACTIVE HEPATITIS B CORE IgM (test c ode = 4644) NON-REACTIVE HEPATITIS B SURF AG (test co de = 2739) NON-REACTIVE HEPATITIS C ANTIBODY (test c ode = 4675) NON-REACTIVE HCV INDEX (test code = 39376) 0.08 INTERPRETATION HEPATITIS A: (test code = 2552) (NOTE) INTERPRETATION HEPATITIS B: (test code = 88589) (NOTE) INTERPRETATION HEPATITIS C: (test code = 45637) (NOTE) HIV AB/AG COMBO RFLX [id number] 00:00:00* Test Item Value Reference Range Interpretation Comme nts HIV 1/2 4TH GEN, RFLX CONF ( test code = 3514) NON-REACTIVE [id number] 00:00:00* Test Item Value Reference Range Interpretation Comme nts RPR RESULT (test code = 3501) NON-REACTIVE RPR TITER (test code = 3500) NOT INDIC. TITER VAGINAL PATHOGENS DNA [id number] 00:00:00* Test Item Value Reference Range Interpretation Comme nts SUZE SPECIES (test code = ) POSITIVE G. VAGINALIS (test code = ) NEGATIVE T. VAGINALIS (test code = ) NEGATIVE ACUTE HEPATITIS [id number] 00:00:00* Test Item Value Reference Range Interpretation Comme nts HEPATITIS A IgM (test code = 60639) NON-REACTIVE HEPATITIS B CORE IgM (test c ode = 4644) NON-REACTIVE HEPATITIS B SURF AG (test co de = 2739) NON-REACTIVE HEPATITIS C ANTIBODY (test c ode = 4675) NON-REACTIVE HCV INDEX (test code = 51268) 0.08 INTERPRETATION HEPATITIS A: (test code = 2552) (NOTE) INTERPRETATION HEPATITIS B: (test code = 44469) (NOTE) INTERPRETATION HEPATITIS C: (test code = 27190) (NOTE) HIV AB/AG COMBO RFLX [id number] 00:00:00* Test Item Value Reference Range Interpretation Comme nts HIV 1/2 4TH GEN, RFLX CONF ( test code = 3514) NON-REACTIVE ACUTE HEPATITIS [id number] 00:00:00* Test Item Value Reference Range Interpretation Comme nts HEPATITIS A IgM (test code = 91809) NON-REACTIVE HEPATITIS B CORE IgM (test c ode = 4644) NON-REACTIVE HEPATITIS B SURF AG (test co de = 2739) NON-REACTIVE HEPATITIS C ANTIBODY (test c ode = 4675) NON-REACTIVE HCV INDEX (test code = 06866) 0.08 INTERPRETATION HEPATITIS A: (test code = 2552) (NOTE) INTERPRETATION HEPATITIS B: (test code = 79421) (NOTE) INTERPRETATION HEPATITIS C: (test code = 03825) (NOTE) Jordan [id number] 00:00:00* Test Item Value Reference Range Interpretation Comme nts RPR RESULT (test code = 3501) NON-REACTIVE RPR TITER (test code = 3500) NOT INDIC. TITER VAGINAL PATHOGENS DNA [id number] 00:00:00* Test Item Value Reference Range Interpretation Comme nts SUZE SPECIES (test code = ) POSITIVE G. VAGINALIS (test code = ) NEGATIVE T. VAGINALIS (test code = ) NEGATIVE ACUTE HEPATITIS [id number] 00:00:00* Test Item Value Reference Range Interpretation Comme nts HEPATITIS A IgM (test code = 35260) NON-REACTIVE HEPATITIS B CORE IgM (test c ode = 4644) NON-REACTIVE HEPATITIS B SURF AG (test co de = 2739) NON-REACTIVE HEPATITIS C ANTIBODY (test c ode = 4675) NON-REACTIVE HCV INDEX (test code = 79205) 0.08 INTERPRETATION HEPATITIS A: (test code = 2552) (NOTE) INTERPRETATION HEPATITIS B: (test code = 81935) (NOTE) INTERPRETATION HEPATITIS C: (test code = 23490) (NOTE) HIV AB/AG COMBO RFLX [id number] 00:00:00* Test Item Value Reference Range Interpretation Comme nts HIV 1/2 4TH GEN, RFLX CONF ( test code = 3514) NON-REACTIVE [id number] 00:00:00* Test Item Value Reference Range Interpretation Comme nts RPR RESULT (test code = 3501) NON-REACTIVE RPR TITER (test code = 3500) NOT INDIC. TITER HIV AB/AG COMBO RFLX [id number] 00:00:00* Test Item Value Reference Range Interpretation Comme nts HIV 1/2 4TH GEN, RFLX CONF ( test code = 3514) NON-REACTIVE Jordan F AustinCHLAMYDIA, AMPLIFIED, [id number] 00:00:00* Test Item Value Reference Range Interpretation Comme nts CHLAMYDIA, TMA (test code = 78309) NEGATIVE Jordan F AustinGC, AMPLIFIED, [id number] 00:00:00* Test Item Value Reference Range Interpretation Comme nts GONORRHEA, TMA (test code = 66106) NEGATIVE Jordan F AustinCHLAMYDIA, AMPLIFIED, [id number] 00:00:00* Test Item Value Reference Range Interpretation Comme nts CHLAMYDIA, TMA (test code = 98765) NEGATIVE Jordan F AustinGC, AMPLIFIED, [id number] 00:00:00* Test Item Value Reference Range Interpretation Comme nts GONORRHEA, TMA (test code = 75641) NEGATIVE Jordan F AustinCHLAMYDIA, AMPLIFIED, [id number] 00:00:00* Test Item Value Reference Range Interpretation Comme nts CHLAMYDIA, TMA (test code = 24806) NEGATIVE GC, AMPLIFIED, [id number] 00:00:00* Test Item Value Reference Range Interpretation Comme nts GONORRHEA, TMA (test code = 09549) NEGATIVE CHLAMYDIA, AMPLIFIED, [id number] 00:00:00* Test Item Value Reference Range Interpretation Comme nts CHLAMYDIA, TMA (test code = 02676) NEGATIVE GC, AMPLIFIED, [id number] 00:00:00* Test Item Value Reference Range Interpretation Comme nts GONORRHEA, TMA (test code = 76909) NEGATIVE CHLAMYDIA, AMPLIFIED, [id number] 00:00:00* Test Item Value Reference Range Interpretation Comme nts CHLAMYDIA, TMA (test code = 55297) NEGATIVE GC, AMPLIFIED, [id number] 00:00:00* Test Item Value Reference Range Interpretation Comme nts GONORRHEA, TMA (test code = 21766) NEGATIVE Notes Date/Time Note [facility]:00:00 [facility]
[2024-09-10] MEDS ORDERED: NA CHLORIDE 0.9% 1,000 ML ONE (15:16)
[2024-09-10 15:24] LABS: Absolute Basophils 0.1 K/uL (0-0.5); Absolute Lymphocytes (CBC) 6.8 K/uL (0.7-4.9); Absolute Monocytes 1.2 K/uL (0.1-1.3); Basophils % 0.4 % (0-1.3); Eosinophils % 0.3 % (0-4.4); Hematocrit 38.4 % (36.0-45.0); Hemoglobin 13.1 g/dL (12.0-15.0); Lymphocytes % 48.5 % (15.3-44.8); MCH 31.6 pg (27.0-35.0); MCHC 34.2 g/dL (32.0-36.0); MCV 92.6 fL (80-100); MPV 7.3 fL (7.6-11.3); Monocytes % 8.3 % (3.3-12.3); Neutrophils % 42.5 % (41.7-73.7); Platelets 482 thou/uL (152-406); RBC Red Blood Cell Count 4.15 M/uL (3.86-4.86); Red Cell Distribution Width 13.3 % (12.1-15.2)
[2024-09-10 15:29] LABS: PT Prothrombin Time 11.1 SECONDS (10-13.0); PTT, Activated Partial Thromb 28.4 SECONDS (27.2-37.4); Protime INR 0.97
[2024-09-10] MEDS ORDERED: NALOXONE HCL 2 MG/2 ML VIAL ONE (15:35)
[2024-09-10 15:54] LABS: ALT/SGPT 22 U/L (13-56); AST/SGOT 19 U/L (15-37); Albumin 3.7 g/dL (3.4-5.0); Albumin/Globulin Ratio 1.1 (1.1-1.8); Alkaline Phosphatase 80 U/L (45-117); Anion Gap 9.1 mEq/L (5.0-15.0); BUN Blood Urea Nitrogen 11 mg/dL (7-18); Bicarbonate 27 mEq/L (21-32); Bilirubin Direct < 0.2 mg/dL (0-0.2); Bilirubin Indirect, Calculated 0.2 mg/dL (0.2-0.8); Bilirubin Total 0.4 mg/dL (0.2-1.0); Globulin 3.4 g/dL (2.3-3.5); Glomerular Filtration Rate 82 ml/min (=/>90); Glucose Level 220 mg/dL (74-106); Potassium 3.1 mEq/L (3.5-5.1); Protein, Total 7.1 g/dL (6.4-8.2); Sodium Level 137 mEq/L (136-145)
--- NOTE | 2024-09-10 17:13 | RAD REPORT ---
EXAMINATION: ONE VIEW CHEST XR CLINICAL INDICATION: Female, 23 years old.,unresponsive TECHNIQUE: Frontal chest projection is submitted. Examination is limited by patient positioning and t echnique. COMPARISON: 08/30/2024 FINDINGS: The lungs are well inflated. Hazy opacification in the right mid to lower lung, with trace effusion a long the right minor fissure. No pneumothorax or sizable effusion. The heart is normal in size. Mediastinal contours are unremarkable. IMPRESSION: Hazy opacification in the right mid to lower lung, could reflect developing pneumonitis or focal mathew a.
[2024-09-10] MEDS ORDERED: NA CHLORIDE 0.9% 100 ML ONE (17:29)
[2024-09-10] MEDS ORDERED: PIPERACIL/TAZO 3.375 GM VIAL IV ONE (17:30)
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
[2024-09-10 18:51] LABS: Specific Gravity 1.026 (1.005-1.030); Sqamous Epithelial <5 /HPF (None Seen); Urine Bacteria <20 /HPF (<20); Urine Bilirubin NEGATIVE (Negative); Urine Blood Negative (Negative); Urine Clarity Clear (Clear); Urine Color Light-Yellow (Yellow); Urine Culture Reflex Order NOT NEEDED; Urine Glucose NEGATIVE (Negative); Urine Ketones NEGATIVE (Negative); Urine Microscopic Reflex YN ORDER UMIC; Urine Mucus Slight /HPF (None Seen); Urine Nitrite NEGATIVE (Negative); Urine Protein 1+ (Negative); Urine RBC <5 /HPF (None Seen); Urine Urobilinogen Normal (Normal); Urine WBC <5 /HPF (<5); Urine pH 6.5 (5.0-7.0)
[2024-09-10 19:07] LABS: Barbiturates NEGATIVE (NEGATIVE); Benzodiazepines POSITIVE (NEGATIVE); Cocaine POSITIVE (NEGATIVE); METHAMPHETAM NEGATIVE (NEGATIVE); Methadone NEGATIVE (NEGATIVE); Opiates NEGATIVE (NEGATIVE); Phencyclidine NEGATIVE (NEGATIVE); THC Cannibis POSITIVE (NEGATIVE)
[2024-09-10] MEDS ORDERED: MORPHINE 2 MG/ML SYR IV PRN (20:29)
[2024-09-10] MEDS ORDERED: ONDANSETRON 4 MG/2 ML VIAL IV PRN (20:29)
[2024-09-10] MEDS ORDERED: ACETAMINOPHEN 500 MG TAB PO PRN (20:29)
--- NOTE | 2024-09-10 20:33 | P.HP ---
Certification for Inpatient Patient admitted to: Observation With expected LOS: <2 Midnights Patient will require the following post-hospital care: None Practitioner: I am a practitioner with admitting privileges, knowledge of patient current condition, hospital course, and medical plan of care. Services: Services provided to patient in accordance with Admission requirements found in Title 42 Section 412.3 of the Code of Federal Regulations Patient History Date of Service: 09/10/24 Reason for admission: Intentional OD-not suicidal; just wanting to democrat History of Present Illness: Patient is a 23-year-old female who was admitted to the hospital for unintentional overdose. She had gone out partying and was doing cocaine along with Xanax bars and Percocet. She took a 30 mg tablet of Percocet and she had been drinking heavily as well. She was brought into the emergency room by her boyfriend unresponsive. She was given Narcan and she started waking up. She she has nausea and vomiting and there was concern that she had aspirated. She was started on antibiotics and steroids. Patient at this time is doing better and she is more awake and alert. She will be admitted for observation. Allergies No Known Allergies Allergy (Unverified 08/31/24 02:45) Home Medications: NK [No Home Meds] 09/01/24 - Past Medical/Surgical History Diabetic: No -: Anxiety -: Depression -: Ear surgery - Family History Father Family History: Reviewed- Non-Contributory - Social History Smoking Status: Current every day smoker Alcohol use: Yes CD- Drugs: Yes Caffeine use: Yes Review of Systems 10-point ROS is otherwise unremarkable Physical Examination - Vital Signs Temperature: 98 F Blood Pressure: 120/80 Pulse: 88 Respirations: 18 Pulse Ox (%): 95 - Physical Exam General: Alert, In no apparent distress, Oriented x3 HEENT: Atraumatic, PERRLA, Mucous membr. moist/pink, EOMI, Sclerae nonicteric Neck: Supple, 2+ carotid pulse no bruit, No LAD, Without JVD or thyroid abnormality Respiratory: Clear to auscultation bilaterally, Normal air movement Cardiovascular: Regular rate/rhythm, Normal S1 S2 Gastrointestinal: Normal bowel sounds, Soft and benign, Non-distended, No tenderness Musculoskeletal: No clubbing, No swelling, No tenderness Integumentary: No rashes Neurological: Normal gait, Normal speech, Normal strength at 5/5 x4 extr, Normal tone, Sensation intact, Cranial nerves 3-12 intact, Normal affect Lymphatics: No axilla or inguinal lymphadenopathy - Studies Laboratory Data (last 24 hrs) 09/10/24 09/10/24 09/10/24 15:12 15:12 15:12 WBC 14.10 H Hgb 13.1 Hct 38.4 Plt Count 482 H PT 11.1 INR 0.97 APTT 28.4 Sodium 137 Potassium 3.1 L BUN 11 Creatinine 0.99 Glucose 220 H Total Bilirubin 0.4 AST 19 ALT 22 Alkaline Phosphatase 80 Assessment & Plan - Problems (Diagnosis) (1) Intentional overdose Status: Acute (2) Polysubstance abuse Status: Acute (3) Aspiration pneumonia Status: Acute - Plan Plan: 1. Aspiration pneumonia; continue with antibiotic therapy and IV steroids. Will reassess pulmonary status in AM. If clinically doing well then she should be able to discharge home on oral antibiotics. 2. Polysubstance abuse with unintentional overdose and unresponsiveness. Patient became more awake and alert after Narcan. Clinically doing better and should be counseled regarding polysubstance abuse. Will advise her to talk to social worker assistant for rehabilitation. Social work consult will be placed 3. GI DVT prophylaxis Discharge Plan: Home Plan to discharge in: 24 Hours - Advance Directives Does patient have a Living Will: No Does patient have a Durable POA for Healthcare: No - Code Status/Comfort Care Code Status Assessed: Yes Code Status: Full Code Critical Care: No Time Spent Managing PTS Care (In Minutes): 45
[2024-09-10 22:21] VITALS: BMI 24.1
[2024-09-10] MEDS: NA CHLORIDE 0.9% 1,000 ML IV SCH (23:50)
[2024-09-10] MEDS: METHYLPREDNISOLONE 40 MG INJ IV SCH (23:51)
[2024-09-11] MEDS: PIPER TAZO 3.375 GM in NA CHLORIDE 0.9% 100 ML IV SCH (00:27)
[2024-09-11] MEDS: ALBUTEROL 2.5 MG/3 ML NEB SOL NEB SCH (02:30)
--- NOTE | 2024-09-11 05:57 | P.DS ---
Discharge Date: 09/11/24 Disposition: AMA-LEFT AGAINST MEDICAL ADVIC Discharge Condition: GOOD Reason for Admission: Intentional OD-not suicidal; just wanting to constitution party - Problems (1) Intentional overdose Status: Acute (2) Polysubstance abuse Status: Acute (3) Aspiration pneumonia Status: Acute Brief History of Present Illness: Patient is a 23-year-old female who was admitted to the hospital for unintentional overdose. She had gone out partying and was doing cocaine along with Xanax bars and Percocet. She took a 30 mg tablet of Percocet and she had been drinking heavily as well. She was brought into the emergency room by her boyfriend unresponsive. She was given Narcan and she started waking up. She she has nausea and vomiting and there was concern that she had aspirated. She was started on antibiotics and steroids. Patient at this time is doing better and she is more awake and alert. She will be admitted for observation. Hospital Course: Patient woke up and she did not want stay in the hospital any longer. She was awake and alert and oriented to person place and time. We did application counselor her regarding polysubstance abuse and hopefully she will get with [facility] so she will get some help. Patient left AMA. Vital Signs/Physical Exam: Temp Pulse Resp BP Pulse Ox 98 F 88 18 120/80 95 09/11/24 05:56 09/11/24 05:56 09/11/24 05:56 09/11/24 05:56 09/11/24 05:56 General: Alert, In no apparent distress, Oriented x3 Laboratory Data at Discharge: WBC 14.10 thou/uL (4.3-10.9) H 09/10/24 15:12 Hgb 13.1 g/dL (12.0-15.0) 09/10/24 15:12 Hct 38.4 % (36.0-45.0) 09/10/24 15:12 Plt Count 482 thou/uL (152-406) H 09/10/24 15:12 PT 11.1 SECONDS (10-13.0) 09/10/24 15:12 INR 0.97 09/10/24 15:12 APTT 28.4 SECONDS (27.2-37.4) 09/10/24 15:12 Sodium 137 mEq/L (136-145) 09/10/24 15:12 Potassium 3.1 mEq/L (3.5-5.1) L 09/10/24 15:12 BUN 11 mg/dL (7-18) 09/10/24 15:12 Creatinine 0.99 mg/dL (0.55-1.02) 09/10/24 15:12 Glucose 220 mg/dL (74-106) H 09/10/24 15:12 Total Bilirubin 0.4 mg/dL (0.2-1.0) 09/10/24 15:12 AST 19 U/L (15-37) 09/10/24 15:12 ALT 22 U/L (13-56) 09/10/24 15:12 Alkaline Phosphatase 80 U/L (45-117) 09/10/24 15:12 Home Medications: NK [No Home Meds] 09/01/24 Physician Discharge Instructions: Patient left AGAINST MEDICAL ADVICE Followup: NONE,NONE [Primary Care Provider] - Time spent managing pt's care (in minutes): 15
--- NOTE | 2024-09-11 11:46 | EKG ---
Test Date: 2024-09-10 Test Time: 15:26:26 Finishing Range Feeder: CARRIE MEASUREMENT RESULTS: Intervals: Rate: 105 [place]: 142 QRSD: 96 QT: 346 QTc: 457 [place]: P: 77 [place]: 142 QRS: 72 T: 52 INTERPRETIVE STATEMENTS: Sinus tachycardia Otherwise normal ECG Compared to ECG 08/30/2024 22:44:05 No significant changes Electronically Signed On 09-11-24 11:45:40 CDT by Lazaro Vasquez
[2024-09-11 22:26] VITALS: TEMP 97.2
[2024-09-11 22:32] VITALS: O2SAT 99
[2024-09-11 22:35] VITALS: BP 98/59
== END 2024-09-11 04:30 | disposition left against medical advice (07) ==
LOC: ER 15:01 → 3RD-ICU 20:29
PROVIDERS: ADMIT Hospitalist; ATTEND Hospitalist
DX: T42.4X1A Poisoning by benzodiazepines, accidental (unintentional), initial encounter (principal); T40.711A Poisoning by cannabis, accidental (unintentional), initial encounter; T40.5X1A Poisoning by cocaine, accidental (unintentional), initial encounter; Y92.89 Other specified places as the place of occurrence of the external cause; J69.0 Pneumonitis due to inhalation of food and vomit; F41.9 Anxiety disorder, unspecified; F32.A Depression, unspecified
CPT/HCPCS: 96365; 96361; 93005; 85025; 81001; 80048; 36415; 81025; 85610; 80076; 85730; 80307; 71045; 94640; 96375; 99291; 99292; 80143; 80179; 82077; J2310; J2543 ×2; J7613; J7030 ×2; J2919; G0378 ×3